=== PATIENT | male | born 1960 | race Caucasian/White ===

== ENCOUNTER 2019-03-02 06:00 | Outpatient (RCR) | payer MEDICARE, SELFPAY | END 2019-04-01 00:01 | LOC: APT 06:00 | PROVIDERS: Family Provider Nurse Practitioner; Visit Provider Nurse Practitioner | DX: J44.9 Chronic obstructive pulmonary disease, unspecified (principal) | CPT/HCPCS: 97110 ×7; J1885; J2001; J2250; J2704; J3010 ==

== ENCOUNTER 2019-04-15 08:15 | Outpatient (CLI) | payer MEDICARE, SELFPAY ==
--- NOTE | 2019-04-15 09:27 | CT_ITS ---
WS: [id number] CT CHEST WITHOUT INTRAVENOUS CONTRAST HISTORY: COPD, worsening shortness of breath. TECHNIQUE: Contiguous 5 mm axial imaging performed on the thorax. Coronal and sagittal reformats are submitted. All CT scans at [facility] use at least one of these dose optimization techniq ues: automated exposure control; mA and/or kV adjustment per patient size (includes targeted exams wh ere dose is matched to clinical indication); or iterative reconstruction. CONTRAST: None DLP: 1183.43 mGycm COMPARISON: 12/07/2018 Lungs and central airway: Lung volumes are slightly decreased. There is mild groundglass attenuation and haziness over both lungs which is in part due to the poor inspiration and crowding of the lung ma rkings. Overall improvement since the prior study of 12/07/2018. No pneumonia or suspicious nodule is i dentified. Benign granuloma RIGHT lower lobe. Compressive atelectasis is subsegmental in the lingula. Pleura: No significant pleural effusion. Pleural effusion described on the prior studies has resolved . Heart and pericardium: Moderate enlargement of the cardiac chambers. No pericardial effusion. Mediastinum and pauly: Small mediastinal and hilar lymph nodes. Some of these lymph nodes contain calc ifications which are benign. No enlarging adenopathy. Vessels: Pulmonary artery size is slightly enlarged and equal to the aorta. Mild atherosclerosis thor acic aorta. Coronary artery calcification is also identified. Chest wall and lower neck: Gynecomastia. Upper abdomen: Hepatic steatosis. Small hiatal hernia. Splenic granulomata. Osseous structures: No destructive process. CT/CT chest wo con [id number] IMPRESSION: 1. Quality of examination is limited by body habitus. 2. Overall significant improvement in pulmonary aeration since 12/07/2018 and re solved pleural effusion. 3. Prior granulomatous disease. 4. Marked cardiomegaly. 5. Benign mediastinal and hilar lymph nodes. 6. Mild coronary artery and aortic calcification.
== END 2019-04-15 08:16 | disposition home or self-care (01) ==
PROVIDERS: Family Provider Nurse Practitioner; PCP Nurse Practitioner; Visit Provider Internal Medicine Critical Care Medicine
DX: J44.9 Chronic obstructive pulmonary disease, unspecified (principal); I51.7 Cardiomegaly; I25.10 Atherosclerotic heart disease of native coronary artery without angina pectoris; I70.0 Atherosclerosis of aorta
CPT/HCPCS: 71250

== ENCOUNTER → 2019-04-16 09:13 | Outpatient (BNVA) | payer MEDICARE, SELFPAY | PROVIDERS: Family Provider Nurse Practitioner; PCP Nurse Practitioner; Visit Provider Internal Medicine Cardiovascular Disease | DX: I11.0 Hypertensive heart disease with heart failure (principal); I50.32 Chronic diastolic (congestive) heart failure | CPT/HCPCS: 80048; 83880 ==

== ENCOUNTER → 2019-04-30 08:20 | Outpatient (BNVA) | payer MEDICARE, SELFPAY | PROVIDERS: Family Provider Nurse Practitioner; PCP Nurse Practitioner; Visit Provider Internal Medicine Cardiovascular Disease | DX: R60.9 Edema, unspecified (principal); I10 Essential (primary) hypertension; I50.32 Chronic diastolic (congestive) heart failure | CPT/HCPCS: 80048; 83880 ==

== ENCOUNTER → 2019-05-19 10:15 | Outpatient (BNVA) | payer MEDICARE, SELFPAY | PROVIDERS: Family Provider Nurse Practitioner; PCP Nurse Practitioner; Visit Provider Internal Medicine Cardiovascular Disease | DX: I10 Essential (primary) hypertension (principal); I48.20 Chronic atrial fibrillation, unspecified; I50.33 Acute on chronic diastolic (congestive) heart failure | CPT/HCPCS: 80053; 83880; 84443 ==

== ENCOUNTER 2019-05-21 10:54 | Emergency (ER) | payer MEDICARE, SELFPAY ==
[2019-05-21 10:57] VITALS: BP 168/69; PULSE 75; RESP 20; TEMP 36.6; O2SAT 97; BMI 56.5
--- NOTE | 2019-05-21 13:20 | ED_ITS ---
Entered by Ct Diaz, acting as scribe for David Corley DO May 21, 2019 10:54 HPI - Recheck/Abnormal Lab/Rx General: Chief Complaint: Recheck/Abnormal Lab/Rx Stated Complaint: DR GRIFFIN SENT OVER Time Seen by Provider: 05/21/19 13:20 History of Present Illness: HPI narrative: 58 yo male present with abnormal las referred by his PCP. His renal function is now patient had been tested and was elevated above 4. He is on multiple medications. Including Lasix 80 twice daily lisinopril 40 p.o. daily is also on potassium 40 mEq twice daily Review of Systems Const: Denies: fever, chills, body aches, change in appetite, fatigue or malaise ENMT: Denies: throat pain, ear pain, nasal discharge or nasal congestion Card: Denies: chest pain, edema, shortness of breath on exertion or shortness of breath when lying down Resp: Denies: shortness of breath, productive cough or non-productive cough GI: Denies: abdominal pain, nausea, vomiting, vomiting blood, coffee grounds in vomit, diarrhea, constipation, bloating, blood in stool or black tarry stool : Denies: flank pain, painful urination, urinary frequency or urinary urgency Skin/Breast: Denies: rash or itching PFSH ED PFSH: Social History Smoking and tobacco status: current every day smoker Quit status (tobacco): has quit using tobacco Year quit tobacco: 2019 - 2PPD x 45 Years Alcohol intake: former Year of sobriety/quit date alcohol: 1991 Household members: spouse Marital status: Current occupational status: disabled History of recent travel: No Current gender identity: Male Physical Exam Const: COMMON NORMALS: no apparent distress GENERAL APPEARANCE: cooperative and comfortable ORIENTATION/CONSCIOUSNESS: Yes awake, Yes oriented to person, Yes oriented to place and Yes oriented to time HENMT: COMMON NORMALS: normocephalic, head/scalp atraumatic, hearing grossly normal bilaterally, external ears normal, EAC's normal, TM's normal bilaterally, nasal mucous membranes and turbinates normal, moist oral mucous membranes and oropharynx normal HEAD & SCALP: normocephalic and atraumatic NOSE: nasal mucous membranes and turbinates normal EXTERNAL EAR: Yes external ears normal EXTERNAL AUDITORY CANAL: EAC's normal TYMPANIC MEMBRANE: TM's normal bilaterally Eye: COMMON NORMALS: PERRL, EOMs intact bilaterally, conjunctivae normal and no scleral icterus CONJUNCTIVA: Yes conjunctivae normal PUPIL: Yes PERRL Neck/C-Spine: COMMON NORMALS: full ROM, no lymphadenopathy, supple and no JVD Lymph: LYMPHATIC: no lymphadenopathy noted and no lymphedema noted Resp: COMMON NORMALS: normal respiratory effort, no retractions, no use of accessory muscles and clear to auscultation bilaterally AUSCULTATION: clear to auscultation bilaterally Cardio: COMMON NORMALS: no JVD, regular rate, regular rhythm and no murmurs RATE: regular rate RHYTHM: regular rhythm GI: COMMON NORMALS: soft to palpation and no hepatosplenomegaly AUSCULTATION: Yes normoactive bowel sounds PALPATION: Yes soft, No tender, No guarding and Yes no hepatosplenomegaly Extremity: COMMON NORMALS: normal to inspection, normal capillary refill, no clubbing, cyanosis or edema, no calf tenderness and no pedal edema Neuro: SENSORIUM/ORIENTATION: Yes oriented to person, Yes oriented to place and Yes oriented to time Skin: COMMON NORMALS: no rashes or lesions noted GENERAL SKIN EXAM: no rashes or lesions noted Course ED course: Creatinine has improved already some. The nurse practitioner had him stop the metaxalone he had recently started. The potassium is a little bit elevated. We will have him cut his potassium supplement back from 40 twice daily to 20 twice daily continue his other medications seem to short-term follow-up in a couple days to recheck he may need to decrease his lisinopril or Lasix. Prior to adding the metaxalone his creatinine been good. If he has worsening problems recheck 6. We will also have him hold his Lasix and cut his lisinopril down to 20 mg daily until he rechecks Vital Signs: Vital signs: Vital Signs Temperature 97.8 F 05/21/19 10:57 Pulse Rate 93 05/21/19 16:07 Respiratory Rate 17 05/21/19 16:07 Blood Pressure 145/76 05/21/19 16:07 Pulse Oximetry 95 05/21/19 16:07 MDM - Recheck/Abnormal Lab/Rx Lab Data: Labs: Lab Results 02/05/21/19 05/21/19 Range/Units 12:40 14:05 14:05 WBC 9.2 (4.0-10.0) 10^3/ uL RBC 3.92 L (4.1-5.3) 10^6/u L Hgb 11.5 L (11.7-16.6) g/dL Hct 37.0 L (42.0-52.0) % MCV 94.4 H (80-94) fL MCH 29.3 (28.0-34.0) pg MCHC 31.1 (30.0-36.0) g/dL RDW 14.6 (12.1-15.1) % Plt Count 230 (130-400) 10^3/c mm MPV 9.9 (7.4-10.4) fL Neut % (Auto) 51.9 % Lymph % (Auto) 32.4 % [place] % (Auto) 10.7 % Eos % (Auto) 3.2 % Baso % (Auto) 0.4 % Neut # (Auto) 4.8 (1.8-7.7) 10^3/u L Lymph # (Auto) 3.0 (0.8-4.8) 10^3/u L [place] # (Auto) 1.0 H (0.2-0.9) 10^3/u L Eos # (Auto) 0.3 (0.0-0.8) 10^3/u L Baso # (Auto) 0.0 (0.0-0.1) 10^3/u L Nucleated RBC % (a uto) 0 % Nucleated RBCs # 0.0 /100WBC Specimen Type Sample Site ABG pH (7.35-7.45) ABG pCO2 (35-45) mmHg ABG pO2 (80.0-100.0) mmH g ABG HCO3 (22-26) mmol/L ABG O2 Saturation ABG Base Excess (-2.0-2.0) mmol/ L Avila Test A-a O2 Gradient (5-10) mmHg Hematocrit (42-52) % Hgb O2 Saturation (95-100) % Carboxyhemoglobin (0.4-20.1) %THgb Methemoglobin (0.4-1.5) % Total Hemoglobin (14-18) g/dL Ionized Calcium (1.1-1.4) mmol/L O2 Delivery Device O2 Liters/Min % FiO2 % Reroller Hand ID Sodium 140 (136-145) mmol/L Potassium 4.8 (3.5-5.1) mmol/L Chloride 108 H (98-107) mmol/L Carbon Dioxide 20 L (22-29) mmol/L Anion Gap 16.8 (5-19) BUN 67 H (6-20) mg/dL Creatinine 3.2 H (0.7-1.2) mg/dL GFR Calculation 20.1 L (90-130) mL/min Glucose 102 (65-115) mg/dL Calcium 8.9 (8.5-10.5) mg/dL Total Bilirubin 0.2 (0.15-1.2) mg/dL AST 14 (0-40) U/L ALT 11 (0-41) U/L Alkaline Phosphata se 62 (40-130) IU/L Total Protein 7.8 (6.6-8.7) g/dL Albumin 3.9 (3.5-5.2) g/dL Globulin 3.9 (1.3-4.6) g/dL Urine Color Yellow (Yellow) Urine Appearance Clear (CLEAR) Urine pH 5.0 (5-7) Ur Specific Gravit y 1.010 (1.005-1.030) Urine Protein Trace (Negative) Urine Glucose (UA) Norm (Normal) Urine Ketones Negative (Negative) Urine Blood Neg (Negative) Urine Nitrate Negative (Negative) Urine Bilirubin Neg (NEGATIVE) Urine Urobilinogen Norm (Negative) mg/dL Ur Leukocyte Cristy ase Negative (Negative) Urine RBC None (0-2) /hpf Urine WBC Rare (0-5) /hpf Ur Squamous Epith Cells Rare (0-5) Urine Bacteria None (NONE) 05/21/19 Range/Units 14:24 WBC (4.0-10.0) 10^3/ uL RBC (4.1-5.3) 10^6/u L Hgb (11.7-16.6) g/dL Hct (42.0-52.0) % MCV (80-94) fL MCH (28.0-34.0) pg MCHC (30.0-36.0) g/dL RDW (12.1-15.1) % Plt Count (130-400) 10^3/c mm MPV (7.4-10.4) fL Neut % (Auto) % Lymph % (Auto) % [place] % (Auto) % Eos % (Auto) % Baso % (Auto) % Neut # (Auto) (1.8-7.7) 10^3/u L Lymph # (Auto) (0.8-4.8) 10^3/u L [place] # (Auto) (0.2-0.9) 10^3/u L Eos # (Auto) (0.0-0.8) 10^3/u L Baso # (Auto) (0.0-0.1) 10^3/u L Nucleated RBC % (a uto) % Nucleated RBCs # /100WBC Specimen Type Arterial Sample Site Radial, right ABG pH 7.29 L (7.35-7.45) ABG pCO2 42.9 (35-45) mmHg ABG pO2 85.4 (80.0-100.0) mmH g ABG HCO3 20.5 L (22-26) mmol/L ABG O2 Saturation 96.2 ABG Base Excess -6.0 L (-2.0-2.0) mmol/ L Avila Test Pos A-a O2 Gradient 145.9 H (5-10) mmHg Hematocrit 40.4 L (42-52) % Hgb O2 Saturation 93.5 L (95-100) % Carboxyhemoglobin 2.0 (0.4-20.1) %THgb Methemoglobin 0.7 (0.4-1.5) % Total Hemoglobin 13.2 L (14-18) g/dL Ionized Calcium 1.2 (1.1-1.4) mmol/L O2 Delivery Device Nc O2 Liters/Min 5.0 % FiO2 40.0 % Reroller Hand ID amh Sodium 144.0 H (136-145) mmol/L Potassium 4.6 (3.5-5.1) mmol/L Chloride (98-107) mmol/L Carbon Dioxide (22-29) mmol/L Anion Gap (5-19) BUN (6-20) mg/dL Creatinine (0.7-1.2) mg/dL GFR Calculation (90-130) mL/min Glucose 108.0 (65-115) mg/dL Calcium (8.5-10.5) mg/dL Total Bilirubin (0.15-1.2) mg/dL AST (0-40) U/L ALT (0-41) U/L Alkaline Phosphata se (40-130) IU/L Total Protein (6.6-8.7) g/dL Albumin (3.5-5.2) g/dL Globulin (1.3-4.6) g/dL Urine Color (Yellow) Urine Appearance (CLEAR) Urine pH (5-7) Ur Specific Gravit y (1.005-1.030) Urine Protein (Negative) Urine Glucose (UA) (Normal) Urine Ketones (Negative) Urine Blood (Negative) Urine Nitrate (Negative) Urine Bilirubin (NEGATIVE) Urine Urobilinogen (Negative) mg/dL Ur Leukocyte Cristy ase (Negative) Urine RBC (0-2) /hpf Urine WBC (0-5) /hpf Ur Squamous Epith Cells (0-5) Urine Bacteria (NONE) Discharge Plan Discharge Patient Disposition: Home, Self-Care Clinical Impression: PETE (acute kidney injury) Condition: Stable Prescriptions: Changed potassium chloride 20 mEq tablet extended release 20 meq PO BID Qty: 0 RF: 0 Discontinued metolazone 5 mg tablet 5 mg PO DAILY RF: 0 No Action Xarelto 20 mg tablet 20 mg PO DAILY RF: 0 colesevelam [WelChol] 625 mg tablet 1,875 mg PO BID RF: 0 pramipexole 0.5 mg tablet 0.5 mg PO TID RF: 0 Lantus Solostar U-100 Insulin 100 unit/mL (3 mL) insulin pen 50 unit SUBCUT BID RF: 0 Victoza 2-Leonides 0.6 mg/0.1 mL (18 mg/3 mL) pen injector 1.8 mg SUBCUT Q24H RF: 0 Zyrtec 10 mg capsule 10 mg PO DAILY RF: 0 buspirone 15 mg tablet 15 mg PO BID RF: 0 ipratropium-albuterol 0.5 mg-3 mg(2.5 mg base)/3 mL solution for nebulization 3 ml INHALATION QID PRN (Reason: unknown) RF: 0 amlodipine 5 mg tablet 5 mg PO DAILY RF: 0 amiodarone 200 mg tablet 200 mg PO DAILY RF: 0 famotidine [Pepcid] 40 mg tablet 40 mg PO DAILY RF: 0 fenofibrate nanocrystallized 145 mg tablet 145 mg PO DAILY RF: 0 furosemide [Lasix] 40 mg tablet 80 mg PO BID RF: 0 montelukast [Singulair] 10 mg tablet 10 mg PO DAILY RF: 0 paroxetine HCl [Paxil] 40 mg tablet 40 mg PO DAILY RF: 0 rosuvastatin 20 mg tablet 20 mg PO DAILY RF: 0 (DME) pen needle, diabetic [TechLITE Pen Needle] 31 gauge x 5/16 needle See Rx Instructions .ROUTE .MEDSUPPLY Qty: 100 RF: 5 levothyroxine 50 mcg capsule 50 mcg PO DAILY Qty: 30 RF: 11 metformin 1,000 mg tablet 1,000 mg PO BID RF: 0 hydralazine 50 mg Tablet 50 mg PO TID RF: 0 lisinopril 40 mg Tablet 40 mg PO DAILY RF: 0 Durezol 0.05 % drops 1 drp ophthalmic (eye) DAILY RF: 0 Prolensa 0.07 % drops 1 drp ophthalmic (eye) DAILY RF: 0 Discharge Orders: Discharge Order (Routine); Ordered 05/21/19 Ordered By: David Corley Referrals: Jeremiah Griffin, [employer]INE OPERATOR-C [Primary Care Provider] - Discharge Diet: Usual diet Discharge Activity: Use walker/crutches as instructed Activity Restrictions/Additional Instructions: Recheck a BMP in 2 days and your doctor's office. Discharge Date/Time: 05/21/19 16:07 Coding Level of Care Code ED Shear Scrapman for Chg Fwd Exam Comprehensive The documentation recorded by the Joe franz Bridget Annette, accurately reflects the service I personally performed and the decisions made by Barney thorpe Curtis L, DO May 21, 2019 10:54
[2019-05-21 13:41] VITALS: BP 108/74; PULSE 74; RESP 18; O2SAT 95
[2019-05-21 14:14] LABS: Basophils % 0.4 %; Eosinophils # 0.3 10^3/uL (0.0-0.8); Eosinophils % 3.2 %; Hemoglobin 11.5 g/dL (11.7-16.6); Lymphocytes % 32.4 %; Mean Corpuscular HGB Conc 31.1 g/dL (30.0-36.0); Mean Corpuscular Hemoglobin 29.3 pg (28.0-34.0); Mean Corpuscular Volume 94.4 fL (80-94); Mean Platelet Volume 9.9 fL (7.4-10.4); Monocytes % 10.7 %; Neutrophils # 4.8 10^3/uL (1.8-7.7); Neutrophils % 51.9 %; Nucleated Red Blood Cells % 0 %; Platelet Count 230 10^3/cmm (130-400); Red Blood Count 3.92 10^6/uL (4.1-5.3); Red Cell Distribution Width 14.6 % (12.1-15.1); White Blood Count 9.2 10^3/uL (4.0-10.0)
[2019-05-21 14:30] LABS: Alanine Aminotransferase 11 U/L (0-41); Albumin Level 3.9 g/dL (3.5-5.2); Alkaline Phosphatase 62 IU/L (40-130); Anion Gap 16.8 (5-19); Aspartate Amino Transferase 14 U/L (0-40); Blood Urea Nitrogen 67 mg/dL (6-20); Calcium 8.9 mg/dL (8.5-10.5); Carbon Dioxide 20 mmol/L (22-29); Chloride 108 mmol/L (98-107); Globulin 3.9 g/dL (1.3-4.6); Glomerular Filtration Rate 20.1 mL/min (90-130); Glucose 102 mg/dL (65-115); Potassium 4.8 mmol/L (3.5-5.1); Sodium 140 mmol/L (136-145); Total Bilirubin 0.2 mg/dL (0.15-1.2); Total Protein 7.8 g/dL (6.6-8.7)
[2019-05-21] MEDS: azithromycin 500 MG in sodium chloride 0.9% 250 ML 250 MG IV (14:31)
[2019-05-21 14:35] LABS: Add Urine Microscopic? YES; Bilirubin Urine Neg (NEGATIVE); Blood Urine Neg (Negative); Glucose Urine UA Norm (Normal); Ketones Urine Negative (Negative); Leukocyte Esterase Urine Negative (Negative); Nitrate Urine Negative (Negative); Protein Urine Trace (Negative); Urine Appearance Clear (CLEAR); Urine Color Yellow (Yellow); Urobilinogen Urine Norm (Negative)
[2019-05-21 14:35] LABS: ABG PCO2 42.9 mmHg (35-45); ABG PH Result 7.29 (7.35-7.45); Alveolar-Arterial Oxygen Gradi 145.9 mmHg (5-10); Arterial Blood Gas Hematocrit 40.4 % (42-52); Blood Gas Allen Test Pos; Blood Gas Operator Identificat amh; Blood Gas Sample Site Radial, right; Blood Gas Sample Type Arterial; HCO3 ABG 20.5 mmol/L (22-26); HGB O2 Sat 93.5 % (95-100); Ionized Calcium Level - ABG 1.2 mmol/L (1.1-1.4); Methemoglobin 0.7 % (0.4-1.5); Oxygen Device NC; Oxygen Saturation ABG 96.2; PO2 ABG 85.4 mmHg (80.0-100.0); Potassium Level - ABG 4.6 mmol/L (3.5-5.0); Total Hemoglobin 13.2 g/dL (14-18)
[2019-05-21 14:36] LABS: Add Urine Culture? No; Squamous Epithelial Cell Urine RARE (0-5); WBC Urine RARE /hpf (0-5)
--- NOTE | 2019-05-21 14:57 | PC.NURSE ---
ordered med on wrong pt. stopped azithromycin aga
[2019-05-21] MEDS: sodium chloride 0.9% 1,000 ML 999 ML IV (15:00)
[2019-05-21 16:07] VITALS: BP 145/76; PULSE 93; RESP 17; O2SAT 95
== END 2019-05-21 16:07 | disposition home or self-care (01) ==
PROVIDERS: Emergency Provider Family Medicine; Family Provider Nurse Practitioner; PCP Nurse Practitioner
DX: N17.9 Acute kidney failure, unspecified (principal); F17.200 Nicotine dependence, unspecified, uncomplicated
CPT/HCPCS: 36415; 36600; 80051; 80053; 81001; 82810; 83986; 85025; 96365; 99283; A9270; J0456; J7030; J7050

== ENCOUNTER → 2019-05-28 08:26 | Outpatient (BNVA) | payer MEDICARE, SELFPAY | PROVIDERS: Family Provider Nurse Practitioner; PCP Nurse Practitioner; Visit Provider Nurse Practitioner | DX: E11.9 Type 2 diabetes mellitus without complications (principal); E78.5 Hyperlipidemia, unspecified | CPT/HCPCS: 80048; 80061; 83036 ==

== ENCOUNTER → 2019-08-21 09:00 | Outpatient (BNVA) | payer MEDICARE, SELFPAY | PROVIDERS: Family Provider Nurse Practitioner; PCP Nurse Practitioner; Visit Provider Nurse Practitioner | DX: E11.65 Type 2 diabetes mellitus with hyperglycemia (principal); Z79.4 Long term (current) use of insulin; I50.32 Chronic diastolic (congestive) heart failure; Z79.899 Other long term (current) drug therapy | CPT/HCPCS: 80053; 80061; 81003; 83036; 83880; 84443 ==

== ENCOUNTER → 2019-11-17 11:00 | Outpatient (BNVA) | payer MEDICARE, SELFPAY | PROVIDERS: Family Provider Nurse Practitioner; PCP Nurse Practitioner; Visit Provider Internal Medicine Cardiovascular Disease | DX: I11.0 Hypertensive heart disease with heart failure (principal); I48.20 Chronic atrial fibrillation, unspecified; I50.33 Acute on chronic diastolic (congestive) heart failure; R06.02 Shortness of breath; E78.2 Mixed hyperlipidemia; E66.2 Morbid (severe) obesity with alveolar hypoventilation; Z79.899 Other long term (current) drug therapy | CPT/HCPCS: 80048; 80061; 83036; 83880; 84443 ==

== ENCOUNTER → 2020-02-09 16:39 | Outpatient (BNVA) | payer MEDICARE, SELFPAY | PROVIDERS: Family Provider Nurse Practitioner; PCP Nurse Practitioner; Visit Provider Nurse Practitioner Family | DX: F41.9 Anxiety disorder, unspecified (principal); J30.1 Allergic rhinitis due to pollen; I10 Essential (primary) hypertension; E11.65 Type 2 diabetes mellitus with hyperglycemia; Z79.4 Long term (current) use of insulin; E78.2 Mixed hyperlipidemia; K21.9 Gastro-esophageal reflux disease without esophagitis; Z87.891 Personal history of nicotine dependence | CPT/HCPCS: 80053; 80061; 83036; 84443; 85025 ==

== ENCOUNTER → 2020-04-29 08:57 | Outpatient (BNVA) | payer MEDICARE, SELFPAY | PROVIDERS: Family Provider Nurse Practitioner; PCP Nurse Practitioner; Visit Provider Nurse Practitioner | DX: E11.65 Type 2 diabetes mellitus with hyperglycemia (principal); I10 Essential (primary) hypertension; E78.2 Mixed hyperlipidemia | CPT/HCPCS: 80053; 80061; 83036 ==

== ENCOUNTER → 2020-07-07 10:55 | Outpatient (BNVA) | payer MEDICARE, SELFPAY | PROVIDERS: Family Provider Nurse Practitioner; PCP Nurse Practitioner; Visit Provider Nurse Practitioner | DX: E11.65 Type 2 diabetes mellitus with hyperglycemia (principal); Z79.4 Long term (current) use of insulin; F41.9 Anxiety disorder, unspecified; J30.1 Allergic rhinitis due to pollen; K21.9 Gastro-esophageal reflux disease without esophagitis; I10 Essential (primary) hypertension; E78.2 Mixed hyperlipidemia | CPT/HCPCS: 80053; 80061; 81000; 83036; 84443 ==

== ENCOUNTER → 2020-07-22 16:12 | Outpatient (BNVA) | payer MEDICARE, SELFPAY | PROVIDERS: Family Provider Nurse Practitioner; PCP Nurse Practitioner; Visit Provider Nurse Practitioner | DX: L98.9 Disorder of the skin and subcutaneous tissue, unspecified (principal) | CPT/HCPCS: 88305 ==

== ENCOUNTER → 2020-10-01 09:54 | Outpatient (BNVA) | payer MEDICARE, SELFPAY | PROVIDERS: Family Provider Nurse Practitioner; PCP Nurse Practitioner; Visit Provider Nurse Practitioner | DX: E11.65 Type 2 diabetes mellitus with hyperglycemia (principal); Z79.4 Long term (current) use of insulin | CPT/HCPCS: 80053; 80061; 81003; 82043; 83036 ==

== ENCOUNTER 2020-10-28 07:53 | Outpatient (CLI) | payer MEDICARE, SELFPAY ==
--- NOTE | 2020-10-28 08:06 | CT_ITS ---
WS: [id number] LDCT LUNG CANCER SCREENING TECHNIQUE: Noncontrast CT of the chest with coronal and sagittal reformatted images. CLINICAL INFORMATION: Nicotine Dependence COMPARISON: None. DLP: 58.15 mGy.cm DIvol: 1.[address] scans at [facility] use at least one of these dose optimization techniques: automat ed exposure control; mA and/or kV adjustment per patient size (includes targeted exams where dose is matched to clinical indication); or iterative reconstruction. FINDINGS: Limited examination quality due to body habitus. Cardiomegaly. Aortic calcification. Coronary calcification. Calcified hilar lymph nodes. Bibasilar at electasis. Calcified granulomas right lower lobe. No suspicious pulmonary parenchymal opacities consi dering exam limitations. CT/CT lung screening 64366 IMPRESSION: LUNG-RADS: 1-Negative FOLLOW UP: 12 Month: Continue annual screening with LDCT
== END 2020-10-28 07:54 | disposition home or self-care (01) ==
PROVIDERS: PCP Nurse Practitioner; Visit Provider Internal Medicine Critical Care Medicine
DX: Z12.2 Encounter for screening for malignant neoplasm of respiratory organs (principal); F17.210 Nicotine dependence, cigarettes, uncomplicated; I70.0 Atherosclerosis of aorta; J98.11 Atelectasis
CPT/HCPCS: 71271

== ENCOUNTER 2020-11-25 13:37 | Outpatient (CLI) | payer MEDICARE, SELFPAY ==
--- NOTE | 2020-11-25 13:46 | XR_ITS ---
WS: [id number] Exam: XR chest 2V* 27005 Date/Time of Exam: 11/25/2020 1:46 PM Reason For Exam: I50.32 - Chronic diastolic (congestive) heart failure Comparison 12/29/2018. Mild infiltrate in the right lower lung zone. The heart is enlarged with slightly increased pulmonary vascularity. No pleural effusion seen. No pneumothorax. The mediastinum is not widened. Regional bon y elements are intact. XR/XR chest 2V* 30885 IMPRESSION: 1. Mild right basal infiltrate. 2. Cardiac enlargement with increased pulmonary vascularity. The pattern is unc hanged since the previous study.
[2020-11-25 14:18] LABS: Basophils # 0.1 10^3/uL (0.0-0.1); Basophils % 0.7 %; Eosinophils # 0.4 10^3/uL (0.0-0.8); Eosinophils % 3.6 %; Hemoglobin 11.6 g/dL (11.7-16.6); Lymphocytes # 3.7 10^3/uL (0.8-4.8); Lymphocytes % 32.4 %; Mean Corpuscular HGB Conc 30.5 g/dL (30.0-36.0); Mean Corpuscular Hemoglobin 29.9 pg (28.0-34.0); Mean Corpuscular Volume 97.9 fl (80-94); Mean Platelet Volume 9.8 fL (7.4-10.4); Monocytes % 8.6 %; Neutrophils # 6.07 10^3/uL (1.8-7.7); Neutrophils % 54.1 %; Nucleated Red Blood Cells % 0 %; Platelet Count 262 10^3/cmm (130-400); Red Blood Count 3.88 10^6/uL (4.1-5.3); Red Cell Distribution Width 14.2 % (12.1-15.1); White Blood Count 11.3 10^3/uL (4.0-10.0)
[2020-11-25 15:07] LABS: Alanine Aminotransferase 21 U/L (0-41); Albumin Level 3.6 g/dL (3.5-5.2); Alkaline Phosphatase 53 IU/L (40-130); Anion Gap 12.8 (5-19); Aspartate Amino Transferase 27 U/L (0-40); Blood Urea Nitrogen 22 mg/dL (8-23); Calcium 8.8 mg/dL (8.5-10.5); Carbon Dioxide 26 mmol/L (22-29); Chloride 106 mmol/L (98-107); Globulin 3.1 g/dL (1.3-4.6); Glomerular Filtration Rate 56.3 mL/min (90-130); Glucose 141 mg/dL (65-115); NT Pro B Type Natriuretic Pept 464 pg/mL (0-125); Osmolality Calculated 296 mOsm/kg (285-295); Potassium 4.8 mmol/L (3.5-5.1); Sodium 140 mmol/L (136-145); Total Bilirubin 0.2 mg/dL (0.15-1.2); Total Protein 6.7 g/dL (6.6-8.7)
== END 2020-11-25 13:38 | disposition home or self-care (01) ==
PROVIDERS: PCP Nurse Practitioner; Visit Provider Nurse Practitioner
DX: I50.32 Chronic diastolic (congestive) heart failure (principal); R91.8 Other nonspecific abnormal finding of lung field; I51.7 Cardiomegaly
CPT/HCPCS: 36415; 71046; 80053; 83880; 85025

== ENCOUNTER → 2020-12-20 08:40 | Outpatient (BNVA) | payer MEDICARE, SELFPAY | PROVIDERS: PCP Nurse Practitioner; Visit Provider Nurse Practitioner | DX: E11.65 Type 2 diabetes mellitus with hyperglycemia (principal); Z79.4 Long term (current) use of insulin; I10 Essential (primary) hypertension | CPT/HCPCS: 80053; 80061; 83036 ==

== ENCOUNTER → 2021-02-14 09:14 | Outpatient (BNVA) | payer MEDICARE, SELFPAY | PROVIDERS: PCP Nurse Practitioner; Visit Provider Surgery | DX: Z01.812 Encounter for preprocedural laboratory examination (principal); Z11.52 Encounter for screening for COVID-19; Z20.822 Contact with and (suspected) exposure to COVID-19 | CPT/HCPCS: 87635 ==

== ENCOUNTER 2021-02-18 05:42 | Day surgery (SDC) | payer MEDICARE, SELFPAY ==
[2021-02-16 15:33] VITALS: BMI 57.7
[2021-02-18 06:15] VITALS: BP 182/111; PULSE 83; RESP 20; TEMP 36.7; O2SAT 94
--- NOTE | 2021-02-18 06:44 | ANES.PREANE2 ---
Pre-Anesthetic Assessment Pre-Anesthetic Assessment: Height/Weight: Height 5 ft 11 in Weight 187.787 kg Temp Pulse Resp BP Pulse Ox 98.1 F 83 20 H 182/111 94 02/18/21 06:15 02/18/21 06:15 02/18/21 06:15 02/18/21 06:15 02/18/21 06:15 Preop Diagnosis: diagnostic Proposed Procedure: Operation Date: 02/18/21 07:00 Proposed Procedures p EGD/Colon 60531 R10.13(Not Applicable) - Sarath Beltre MD s Colonoscopy 08737 Z12.11(Not Applicable) - Sarath Beltre MD Was Beta Jorge taken within 24 hours: N/A Was Clonidine taken within 24 hours: N/A Last intake: Intake Last Liquid Date 02/17/21 Last Liquid Time 21:00 Last Solid Date 02/16/21 Last Solid Time 21:00 Social: Social History: Tobacco Exam: Pre-Anes Outpt Exam: alert, oriented x 3, clear to auscultation bilaterally and regular rate & rhythm Airway: Submandibular: WNL Cervical ROM: WNL MP: 3 Dentition: False History/ROS: No significant history except as noted Pulmonary: Pulmonary: COPD, ALEJANDRO, Sleep apnea and SOB Comments: O2 6L CV/HEM: CV/HEM: Afib and CHF : : None reported Hepatic: Hepatic: None reported GI: GI: None reported Metabolic: Metabolic: DM, Hyperlipidemia and Morbid obesity Musc/skel: Musc/skel: None reported Neuropsych: Neuropsych: Anxiety and Depression Anesthetic Plan: ASA status: 3 Anesthesia: Anesthesia Evaluation and MAC Risk of > 500 ml blood loss (7ml/kg in children): No PFSH Anesthesia PFSH: Medical History (Updated 01/25/21 @ 14:14 by Sarath Beltre MD) Acquired lymphedema Afib Allergic rhinitis due to pollen Anxiety Chronic atrial fibrillation with rapid ventricular response Chronic diastolic (congestive) heart failure Chronic respiratory failure Controlled type 2 diabetes mellitus with hyperglycemia, with long-term current use of insulin Essential (primary) hypertension GERD (gastroesophageal reflux disease) Hyperlipemia Hypothyroidism Hypoxia, sleep related MRSA infection EDGAR (obstructive sleep apnea) Pneumonia, unspecified organism Surgical History (Updated 02/04/21 @ 10:02 by MEL Zuleta) History of colonoscopy History of gangrene Left buttocks requiring surgery May 2014 Family History Father Cancer Mother Heart disease CAD (coronary artery disease) Diabetes Heart attack Stroke Brother Heart attack Clotting disorder Stroke Sister Stroke Denies family history of Dementia Chronic kidney disease (CKD) Suicide Anesthesia complication Bleeding disorder Lung disease Social History Smoking and tobacco status: current every day smoker cigarettes Packs smoked per day: 1 Years cigarettes smoked: 45 Second hand smoke exposure: Yes Smoking risk assessment/counseling performed?: Yes Alcohol intake: former Year of sobriety/quit date alcohol: 1991 Desire information about alcohol rehabilitation?: No Counseling given: No Desire information about substance/drug rehabilitation?: No Counseling given: No Adopted: No Caregiver/support person: No Lives independently: Yes Household members: spouse Housing: House Marital status: service: No Current occupational status: disabled Pets and animals: Yes History of recent travel: No Current gender identity: Male Data Anesthesia Cardiac Studies: No Data to Display
[2021-02-18] MEDS: sodium chloride 0.9% 1,000 ML 30 ML IV (07:00)
--- NOTE | 2021-02-18 07:16 | W.PM.OPSUD ---
Surgery/Procedure H&P Update DATE OF PROCEDURE: February 18, 2021 DATE H&P PERFORMED: 01/25/21 H&P UPDATE INFORMATION: I have reviewed H&P completed within last 30 days, I have examined patient prior to procedure and No changes to prior documentation PREOP DIAGNOSIS: diagnostic PLANNED PROCEDURE: Operation Date: 02/18/21 07:00 Proposed Procedures p EGD/Colon 10963 R10.13(Not Applicable) - Sarath Beltre MD s Colonoscopy 19250 Z12.11(Not Applicable) - Sarath Beltre MD
[2021-02-18 07:45] VITALS: BP 120/65; PULSE 72; RESP 18; TEMP 37.3; O2SAT 95
[2021-02-18 07:57] VITALS: BP 124/69; PULSE 78; RESP 18; O2SAT 95
--- NOTE | 2021-02-18 13:57 | ANE.PACU2 ---
Inpatient post-anesthesia follow up: Airway intact: Yes Vital signs: Temperature 99.1 F Pulse Rate 78 Respiratory Rate 18 Blood Pressure 124/69 Pulse Oximetry 95 Oxygen Delivery Me thod Nasal Cannula Oxygen Flow Rate 7 Fraction of Inspir ed Oxygen Hydration adequate: Yes Nausea and vomiting: No Pain level: 1 Mental status: Baseline
== END 2021-02-18 08:15 | disposition home or self-care (01) ==
PROVIDERS: PCP Nurse Practitioner; Visit Provider Surgery
PROC: 0DJ08ZZ Inspection of Upper Intestinal Tract, Via Natural or Artificial Opening Endoscopic (ICD-10-PCS; CPT 43235; principal; 2021-02-18 07:00)
PROC: 0DJD8ZZ Inspection of Lower Intestinal Tract, Via Natural or Artificial Opening Endoscopic (ICD-10-PCS; CPT 45378; 2021-02-18 07:00)
DX: Z12.11 Encounter for screening for malignant neoplasm of colon (principal); R10.13 Epigastric pain; K57.30 Diverticulosis of large intestine without perforation or abscess without bleeding; B96.81 Helicobacter pylori [H. pylori] as the cause of diseases classified elsewhere; K29.70 Gastritis, unspecified, without bleeding; J44.9 Chronic obstructive pulmonary disease, unspecified; G47.33 Obstructive sleep apnea (adult) (pediatric); Z99.81 Dependence on supplemental oxygen; I48.91 Unspecified atrial fibrillation; E11.9 Type 2 diabetes mellitus without complications; E78.5 Hyperlipidemia, unspecified; E66.01 Morbid (severe) obesity due to excess calories; Z68.43 Body mass index [BMI] 50.0-59.9, adult; F41.9 Anxiety disorder, unspecified; F32.9 Major depressive disorder, single episode, unspecified; I11.0 Hypertensive heart disease with heart failure; I50.32 Chronic diastolic (congestive) heart failure; K21.9 Gastro-esophageal reflux disease without esophagitis; E03.9 Hypothyroidism, unspecified; Z86.14 Personal history of Methicillin resistant Staphylococcus aureus infection; Z82.49 Family history of ischemic heart disease and other diseases of the circulatory system; Z83.3 Family history of diabetes mellitus; Z82.3 Family history of stroke; F17.210 Nicotine dependence, cigarettes, uncomplicated
CPT/HCPCS: 43239; 88305; 96360; G0121; J2704; J7030

== ENCOUNTER → 2021-03-21 10:35 | Outpatient (BNVA) | payer MEDICARE, SELFPAY | PROVIDERS: PCP Nurse Practitioner; Visit Provider Nurse Practitioner | DX: F41.9 Anxiety disorder, unspecified (principal); I10 Essential (primary) hypertension; E11.65 Type 2 diabetes mellitus with hyperglycemia; Z79.4 Long term (current) use of insulin; E03.9 Hypothyroidism, unspecified; J30.1 Allergic rhinitis due to pollen; E78.2 Mixed hyperlipidemia; Z23 Encounter for immunization | CPT/HCPCS: 80053; 81000; 83036; 84443 ==

== ENCOUNTER → 2021-07-07 17:00 | Outpatient (BNVA) | payer OTHER, SELFPAY | PROVIDERS: PCP Nurse Practitioner; Visit Provider Nurse Practitioner | DX: F41.9 Anxiety disorder, unspecified (principal); J30.1 Allergic rhinitis due to pollen; I10 Essential (primary) hypertension; E11.65 Type 2 diabetes mellitus with hyperglycemia; Z79.4 Long term (current) use of insulin; E03.9 Hypothyroidism, unspecified; E78.2 Mixed hyperlipidemia | CPT/HCPCS: 80053; 80061; 83036; 84443 ==

== ENCOUNTER → 2021-11-01 14:18 | Outpatient (BNVA) | payer OTHER, SELFPAY | PROVIDERS: PCP Nurse Practitioner; Visit Provider Nurse Practitioner | DX: E11.65 Type 2 diabetes mellitus with hyperglycemia (principal); E03.9 Hypothyroidism, unspecified; I10 Essential (primary) hypertension; J30.1 Allergic rhinitis due to pollen; I50.32 Chronic diastolic (congestive) heart failure; E78.2 Mixed hyperlipidemia; J96.11 Chronic respiratory failure with hypoxia; F41.9 Anxiety disorder, unspecified; J96.12 Chronic respiratory failure with hypercapnia; Z79.4 Long term (current) use of insulin | CPT/HCPCS: 80053; 80061; 83036; 84443 ==

== ENCOUNTER → 2021-12-14 11:11 | Outpatient (BNVA) | payer MEDICARE, SELFPAY | PROVIDERS: PCP Nurse Practitioner; Visit Provider Internal Medicine Cardiovascular Disease | DX: I11.0 Hypertensive heart disease with heart failure (principal); I50.32 Chronic diastolic (congestive) heart failure; F17.210 Nicotine dependence, cigarettes, uncomplicated; E11.65 Type 2 diabetes mellitus with hyperglycemia; Z79.4 Long term (current) use of insulin; E03.9 Hypothyroidism, unspecified; E66.2 Morbid (severe) obesity with alveolar hypoventilation; Z68.43 Body mass index [BMI] 50.0-59.9, adult; F41.9 Anxiety disorder, unspecified; I48.20 Chronic atrial fibrillation, unspecified; Z79.01 Long term (current) use of anticoagulants; J96.12 Chronic respiratory failure with hypercapnia; J96.11 Chronic respiratory failure with hypoxia | CPT/HCPCS: 99213; 99214 ==

== ENCOUNTER → 2022-01-04 11:08 | Outpatient (BNVA) | payer MEDICARE, SELFPAY | PROVIDERS: PCP Nurse Practitioner; Visit Provider Internal Medicine Critical Care Medicine | DX: J98.4 Other disorders of lung (principal); F17.210 Nicotine dependence, cigarettes, uncomplicated; E66.2 Morbid (severe) obesity with alveolar hypoventilation; J98.59 Other diseases of mediastinum, not elsewhere classified; Z68.43 Body mass index [BMI] 50.0-59.9, adult | CPT/HCPCS: 99214 ==

== ENCOUNTER → 2022-02-17 09:05 | Outpatient (BNVA) | payer MEDICARE, SELFPAY | PROVIDERS: PCP Nurse Practitioner; Visit Provider Nurse Practitioner | DX: Z23 Encounter for immunization (principal); E11.65 Type 2 diabetes mellitus with hyperglycemia; Z79.4 Long term (current) use of insulin; J96.11 Chronic respiratory failure with hypoxia; F41.9 Anxiety disorder, unspecified; I50.32 Chronic diastolic (congestive) heart failure; J96.12 Chronic respiratory failure with hypercapnia; J30.1 Allergic rhinitis due to pollen; E78.2 Mixed hyperlipidemia; I10 Essential (primary) hypertension; E03.9 Hypothyroidism, unspecified | CPT/HCPCS: 80053; 80061; 81000; 82043; 83036; 83880; 84443 ==

== ENCOUNTER 2022-03-02 10:16 | Outpatient (CLI) | payer MEDICARE, SELFPAY ==
--- NOTE | 2022-03-02 10:30 | CT_ITS ---
WS: [id number] LDCT LUNG CANCER SCREENING TECHNIQUE: Noncontrast CT of the chest with coronal and sagittal reformatted images. CLINICAL INFORMATION: Lung cancer screening COMPARISON: CT October 28, 2020 DLP: 89.70 mGy.cm DIvol: Mean CTDIvol: 1.60 (mGy) All CT scans at [facility] use at least one of these dose optimization techniques: automat ed exposure control; mA and/or kV adjustment per patient size (includes targeted exams where dose is matched to clinical indication); or iterative reconstruction. FINDINGS: Images limited due to body habitus. Cardiomegaly. Bilateral dependent atelectasis. Calcified granulomas. Subsegmental atelectasis in the RIGHT middle lobe, lingula, and bilateral lower lobes. Hazy groundglass opacities in the lower lobes bilaterally likely edema or inflammatory. Mild aortic calcification. Coronary calcification. Adrenal glands appear normal. Fatty atrophy of the pancreas. Normal GE junction. Hypertrophic changes thoracic spine. CT/CT lung screening [id number] IMPRESSION: LUNG-RADS: 1-Negative FOLLOW UP: 12 Month: Continue annual screening with LDCT
== END 2022-03-02 10:17 | disposition home or self-care (01) ==
PROVIDERS: PCP Nurse Practitioner; Visit Provider Internal Medicine Critical Care Medicine
DX: Z12.2 Encounter for screening for malignant neoplasm of respiratory organs (principal); F17.210 Nicotine dependence, cigarettes, uncomplicated
CPT/HCPCS: 71271

== ENCOUNTER 2022-04-06 08:55 | Inpatient (IN) | payer MEDICARE, SELFPAY ==
[2022-04-06] VITALS (45 sets, daily range): BP systolic 99–196; BP diastolic 54–105; PULSE 77–98; RESP 16–31; TEMP 36.4–37.6; O2SAT 72–96; BMI 57.9
--- NOTE | 2022-04-06 09:01 | XR_ITS ---
WS: [id number] Portable AP upright chest, 04/06/2022 Clinical Data: dyspnea/cough Comparison: PA and lateral chest, 11/25/2020 Findings: No nodules, masses or effusions are seen. The heart is enlarged. The pulmonary vascularity is not increased. No pneumonia or pneumothorax is seen. There are bilateral patchy basilar opacities which may represent atelectasis. XR/XR chest 1V portable [id number] Impression: 1. Cardiomegaly. 2. Bibasilar patchy opacities most likely atelectasis.
--- NOTE | 2022-04-06 09:24 | ECG_ITS ---
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 Measurements Intervals [place] Rate: 93 P: 0 MN: 0 QRS: 76 QRSD: 114 T: 40 QT: 397 QTc: 494 Interpretive Statements ATRIAL FIBRILLATION INCOMPLETE RIGHT BUNDLE BRANCH BLOCK [90+ ms QRS DURATION, TERMINAL R IN V1/V2, 40+ ms S IN I/aVL/V4/V5/V6] NONSPECIFIC T-WAVE ABNORMALITY Compared to ECG 12/29/2018 20:32:21 Incomplete right bundle-branch block now present T-wave abnormality now present Ventricular premature complex(es) no longer present Aberrant conduction of supraventricular beat(s) no longer present Intraventricular conduction delay no longer present Electronically Signed On 04-06-2022 10:37:03 CONDUCTOR YARD by Douglas Tee M.D. [email or web address]
[2022-04-06 09:25] LABS: ABG PCO2 50.3 mmHg (35-45); ABG PH Result 7.32 (7.35-7.45); Arterial Blood Gas Hematocrit 31.3 % (42-52); Base Excess ABG -0.9 mmol/L (-2.0-2.0); Blood Gas Allen Test Pos; Blood Gas Operator Identificat CAK; Blood Gas Sample Site Radial, right; Blood Gas Sample Type Arterial; Carboxyhemoglobin 2.6 %THgb (0.4-20.1); HCO3 ABG 25.6 mmol/L (22-26); HGB O2 Sat 87.9 % (95-100); Ionized Calcium Level - ABG 1.2 mmol/L (1.1-1.4); Methemoglobin 0.5 % (0.4-1.5); Oxygen Device NRB; Oxygen Saturation ABG 90.8; PO2 ABG 64.3 mmHg (80.0-100.0); Potassium Level - ABG 4.4 mmol/L (3.5-5.0); Total Hemoglobin 10.2 g/dL (14-18)
--- NOTE | 2022-04-06 09:26 | ED_ITS ---
HPI - SOB/Dyspnea General: Chief Complaint: Shortness of Breath/Dyspnea Stated Complaint: low ox Time Seen by Provider: 04/06/22 09:01 Source: patient Mode of arrival: ambulatory Limitations: no limitations History of Present Illness: HPI Narrative: 61-year-old male presents emergency room in acute respiratory distress. He has had increased work of breathing and increased oxygen demand normally he is on 6 L he has not been able to lay down still up to orthopnea over the last couple of days as well as increased swelling. He denies fever sweats or chills or productive cough. His oxygen sats on arrival on mask over the mid to upper 80s. He denies any chest pain. MD elicited complaint: shortness of breath Pertinent past history: congestive heart failure Onset (ago): day(s) Timing: constant Severity: severe Exacerbating factors: lying flat, exertion, movement and coughing Relieving factors: oxygen and upright position Known history of: COPD and congestive heart failure Associated symptoms: Reports chest congestion and orthopnea; Deny abdominal pain, chest pain, cough, diaphoresis, dizziness, extremity pain, fever(s), hemoptysis, lightheadedness, myalgias, nausea, palpitations, paresthesias, polydipsia, polyuria, rash, sense of impending doom, syncope or vomiting Treatment prior to arrival: oxygen Review of Systems Const: Denies: fever(s), chills or diaphoresis ENMT: Denies: throat pain, ear or mastoid pain, nasal discharge or nasal congestion Card: Reports: edema, dyspnea on exertion and orthopnea; Denies: chest pain, palpitations, lightheadedness or syncope Resp: Reports: dyspnea, non-productive cough, wheezing and chest congestion; Denies: hemoptysis GI: Denies: abdominal pain, nausea or vomiting : Denies: flank pain, dysuria, urinary frequency or urinary urgency Musc: Denies: extremity pain Skin/Breast: Denies: rash or pruritus Neuro: Denies: dizziness Endo: Denies: polyuria or polydipsia PFS ED PFSH: Medical History Acquired lymphedema Afib Allergic rhinitis due to pollen Anxiety Chronic atrial fibrillation with rapid ventricular response Chronic diastolic (congestive) heart failure Chronic kidney disease Chronic respiratory failure Diabetes mellitus with hyperglycemia, with long-term current use of insulin Essential (primary) hypertension GERD (gastroesophageal reflux disease) Hyperlipemia Hypothyroidism Hypoxia, sleep related MRSA infection EDGAR (obstructive sleep apnea) Pneumonia, unspecified organism Surgical History H/O esophagogastroduodenoscopy (02/18/21) History of bilateral cataract extraction 2019 and 2020 History of colonoscopy (02/18/21) History of gangrene Left buttocks requiring surgery May 2014 Family History Father Cancer Mother Heart disease CAD (coronary artery disease) Diabetes Heart attack Stroke Brother Heart attack Clotting disorder Stroke Sister Stroke Denies family history of Dementia Chronic kidney disease (CKD) Suicide Anesthesia complication Bleeding disorder Lung disease Social History Smoking and tobacco status: current every day smoker cigarettes Packs smoked per day: 1 Years cigarettes smoked: 50 [ Other cigarette details: Started at age 10] Second hand smoke exposure: Yes Smoking risk assessment/counseling performed?: Yes Alcohol intake: former Year of sobriety/quit date alcohol: 1991 Desire information about alcohol rehabilitation?: No Counseling given: No Desire information about substance/drug rehabilitation?: No Counseling given: No Adopted: No Caregiver/support person: No Lives independently: Yes Household members: spouse Housing: House Marital status: service: No Current occupational status: disabled Pets and animals: Yes History of recent travel: No Current gender identity: Male Course Vital Signs: Vital signs: Vital Signs Temperature 99.7 F H 04/06/22 19:30 Pulse Rate 87 04/06/22 19:48 Respiratory Rate 24 H 04/06/22 19:48 Blood Pressure 108/54 04/06/22 19:30 Pulse Oximetry 91 04/06/22 19:48 Oxygen Delivery Me thod 04/06/22 19:48 Oxygen Flow Rate 15 04/06/22 09:01 Fraction of Inspir ed Oxygen 60 04/06/22 19:48 MDM - SOB/Dyspnea Medical Decision Making Acute hypercapnic respiratory failure exacerbation COPD. And congestive heart failure. He is improved with BiPAP discussed with hospitalist orders written Medical Records I reviewed the patient's medical records. Lab Data I reviewed the patient's lab results. 04/06/22 09:12 04/06/22 09:12 Labs/Radiology: Radiology Impressions Chest X-Ray 04/06/22 09:01 Impression: 1. Cardiomegaly. 2. Bibasilar patchy opacities most likely atelectasis. Laboratory Results WBC 17.3 10^3/uL (4.0-10.0) H 04/06/22 09:12 RBC 3.38 10^6/uL (4.1-5.3) L 04/06/22 09:12 Hgb 9.9 g/dL (11.7-16.6) L 04/06/22 09:12 Hct 32.3 % (42.0-52.0) L 04/06/22 09:12 MCV 95.6 fl (80-94) H 04/06/22 09:12 MCH 29.3 pg (28.0-34.0) 04/06/22 09:12 MCHC 30.7 g/dL (30.0-36.0) 04/06/22 09:12 RDW 15.1 % (12.1-15.1) 04/06/22 09:12 Plt Count 323 10^3/cmm (130-400) 04/06/22 09:12 MPV 10.3 fL (7.4-10.4) 04/06/22 09:12 Neut % (Auto) 82.7 % 04/06/22 09:12 Lymph % (Auto) 7.7 % 04/06/22 09:12 [place]ud[place] % (Auto) 8.8 % 04/06/22 09:12 Eos % (Auto) 0.1 % 04/06/22 09:12 Baso % (Auto) 0.3 % 04/06/22 09:12 Neut # (Auto) 14.28 10^3/uL (1.8-7.7) H 04/06/22 09:12 Lymph # (Auto) 1.3 10^3/uL (0.8-4.8) 04/06/22 09:12 [place] # (Auto) 1.5 10^3/uL (0.2-0.9) H 04/06/22 09:12 Eos # (Auto) 0.0 10^3/uL (0.0-0.8) 04/06/22 09:12 Baso # (Auto) 0.1 10^3/uL (0.0-0.1) 04/06/22 09:12 Nucleated RBC % (auto) 0 % 04/06/22 09:12 Nucleated RBCs # 0.0 /100WBC 04/06/22 09:12 Specimen Type Arterial 04/06/22 09:14 Sample Site Radial, right 04/06/22 09:14 ABG pH 7.32 (7.35-7.45) L 04/06/22 09:14 ABG pCO2 50.3 mmHg (35-45) H 04/06/22 09:14 ABG pO2 64.3 mmHg (80.0-100.0) L 04/06/22 09:14 ABG HCO3 25.6 mmol/L (22-26) 04/06/22 09:14 ABG O2 Saturation 90.8 04/06/22 09:14 ABG Base Excess -0.9 mmol/L (-2.0-2.0) 04/06/22 09:14 Avila Test Pos 04/06/22 09:14 A-a O2 Gradient Not Reportable 04/06/22 09:14 Hematocrit 31.3 % (42-52) L 04/06/22 09:14 Hgb O2 Saturation 87.9 % (95-100) L 04/06/22 09:14 Carboxyhemoglobin 2.6 %THgb (0.4-20.1) 04/06/22 09:14 Methemoglobin 0.5 % (0.4-1.5) 04/06/22 09:14 Total Hemoglobin 10.2 g/dL (14-18) L 04/06/22 09:14 Sodium 144.0 mmol/L (131-143) H 04/06/22 09:14 Potassium 4.4 mmol/L (3.5-5.0) 04/06/22 09:14 Glucose 127.0 mg/dL (70-115) H 04/06/22 09:14 Ionized Calcium 1.2 mmol/L (1.1-1.4) 04/06/22 09:14 O2 Delivery Device Nrb 04/06/22 09:14 FiO2 15.0 % 04/06/22 09:14 Pay Station Attendant ID Cak 04/06/22 09:14 Sodium 141 mmol/L (136-145) 04/06/22 09:12 Potassium 4.5 mmol/L (3.5-5.1) 04/06/22 09:12 Chloride 105 mmol/L (98-107) 04/06/22 09:12 Carbon Dioxide 25 mmol/L (22-29) 04/06/22 09:12 Anion Gap 15.5 (5-19) 04/06/22 09:12 BUN 17 mg/dL (8-23) 04/06/22 09:12 Creatinine 1.3 mg/dL (0.7-1.2) H 04/06/22 09:12 GFR Calculation 56.1 mL/min (90-130) L 04/06/22 09:12 Glucose 125 mg/dL (65-115) H 04/06/22 09:12 POC Glucose 102 mg/dL (70-110) 04/06/22 11:20 Calculated Osmolality 295 mOsm/kg (285-295) 04/06/22 09:12 Lactic Acid 1.1 mmol/L (0.5-2.2) 04/06/22 09:12 Calcium 9.0 mg/dL (8.5-10.5) 04/06/22 09:12 Iron 11 ug/dL (59-158) L 04/06/22 09:12 TIBC 298 mcg/dl 04/06/22 09:12 % Saturation 3.6 % (20-50) L 04/06/22 09:12 Unsat Iron Binding 287 ug/dL (112-347) 04/06/22 09:12 Ferritin 155 ng/mL (30-400) 04/06/22 09:12 Total Bilirubin 0.4 mg/dL (0.15-1.2) 04/06/22 09:12 AST 14 U/L (0-40) 04/06/22 09:12 ALT 10 U/L (0-41) 04/06/22 09:12 Alkaline Phosphatase 81 U/L (40-130) 04/06/22 09:12 Troponin T Baseline 36 ng/L (0-15) H 04/06/22 09:12 Troponin T 120 Minute 35.55 ng/L (0-15) H 04/06/22 11:28 Delta Troponin T -0.45 ABS# (0-10) L 04/06/22 11:28 NT-Pro-B Natriuret Pep 2725 pg/mL (0-125) H 04/06/22 09:12 Total Protein 7.8 g/dL (6.6-8.7) 04/06/22 09:12 Albumin 4.0 g/dL (3.5-5.2) 04/06/22 09:12 Globulin 3.8 g/dL (1.3-4.6) 04/06/22 09:12 Procalcitonin 0.47 ng/mL (0-0.5) 04/06/22 09:12 Coronavirus 229E (PCR) Not detected (NOT DETECT) 04/06/22 09:52 Influenza Type A Ag negative (Negative) 04/06/22 09:52 Influenza Type B Ag negative (Negative) 04/06/22 09:52 SARS-CoV-2 (PCR) Not detected (NOT DETECT) 04/06/22 09:52 SARS-CoV-2 Ag (Rapid) Cancelled 04/06/22 09:52 Discharge Plan Discharge Patient Disposition: Admitted As Inpatient Admit Provider: Darien Orona Clinical Impression: Acute respiratory failure with hypercapnia, Congestive heart failure, Acute exacerbation of chronic obstructive airways disease, Obesity hypoventilation sy ndrome, Morbid obesity with BMI of 50.0-59.9, adult, Diabetes mellitus with hyperglycemia, with long-term current use of insulin, Anemia, Leukocytosis, Hypothyroidism, Essential (primary) hypertension Condition: Stable Coding Level of Care Code ED 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
--- NOTE | 2022-04-06 09:34 | PC.NURSE ---
PT ARRIVED TO ED WITH SHORTNESS OF BREATH. PT ARRIVED ON 8L NC SATTING 88%. NURSE PAM APPLIED 15L VIA NONREBREATHER PT SATS INCREASED TO 89%. PT THEN PLACED ON BIPAP BY RESPIRATORY. PT SATTING 94%. PT PLACED ON CONTINUOUS NIBP, SPO2, AND CM
[2022-04-06 09:36] LABS: Basophils # 0.1 10^3/uL (0.0-0.1); Basophils % 0.3 %; Eosinophils % 0.1 %; Hematocrit 32.3 % (42.0-52.0); Hemoglobin 9.9 g/dL (11.7-16.6); Lymphocytes # 1.3 10^3/uL (0.8-4.8); Lymphocytes % 7.7 %; Mean Corpuscular HGB Conc 30.7 g/dL (30.0-36.0); Mean Corpuscular Hemoglobin 29.3 pg (28.0-34.0); Mean Corpuscular Volume 95.6 fl (80-94); Mean Platelet Volume 10.3 fL (7.4-10.4); Monocytes # 1.5 10^3/uL (0.2-0.9); Monocytes % 8.8 %; Neutrophils # 14.28 10^3/uL (1.8-7.7); Neutrophils % 82.7 %; Nucleated Red Blood Cells % 0 %; Platelet Count 323 10^3/cmm (130-400); Red Blood Count 3.38 10^6/uL (4.1-5.3); Red Cell Distribution Width 15.1 % (12.1-15.1); White Blood Count 17.3 10^3/uL (4.0-10.0)
[2022-04-06] MEDS: nitroglycerin 1 gm/inch oint Pkt 1 INCH TOPICAL (09:42)
[2022-04-06] MEDS: ondansetron 2 mg/ML SDV 2 mL 4 MG IVP (09:43)
--- NOTE | 2022-04-06 10:05 | PC.NURSE ---
1 INCH NITRO PASTE APPLIED TO PT LEFT CHEST AND SECURED WITH TAPE.
[2022-04-06 10:13] LABS: Lactic Sepsis W/Reflex 1.1 mmol/L (0.5-2.2); Troponin(5th) Baseline 36 ng/L (0-15)
[2022-04-06 10:23] LABS: Alanine Aminotransferase 10 U/L (0-41); Alkaline Phosphatase 81 U/L (40-130); Anion Gap 15.5 (5-19); Aspartate Amino Transferase 14 U/L (0-40); Blood Urea Nitrogen 17 mg/dL (8-23); Carbon Dioxide 25 mmol/L (22-29); Chloride 105 mmol/L (98-107); Globulin 3.8 g/dL (1.3-4.6); Glomerular Filtration Rate 56.1 mL/min (90-130); Glucose 125 mg/dL (65-115); NT Pro B Type Natriuretic Pept 2725 pg/mL (0-125); Osmolality Calculated 295 mOsm/kg (285-295); Potassium 4.5 mmol/L (3.5-5.1); Sodium 141 mmol/L (136-145); Total Bilirubin 0.4 mg/dL (0.15-1.2); Total Protein 7.8 g/dL (6.6-8.7)
[2022-04-06 10:27] LABS: Influenza A by IFA negative (Negative); Influenza B by IFA negative (Negative)
--- NOTE | 2022-04-06 11:19 | ECG_ITS ---
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 Measurements Intervals [place] Rate: 82 P: 0 MS: 0 QRS: 77 QRSD: 119 T: 41 QT: 420 QTc: 491 Interpretive Statements ATRIAL FIBRILLATION INCOMPLETE RIGHT BUNDLE BRANCH BLOCK [90+ ms QRS DURATION, TERMINAL R IN V1/V2, 40+ ms S IN I/aVL/V4/V5/V6] NONSPECIFIC ST & T-WAVE ABNORMALITY ABNORMAL RHYTHM ECG Compared to ECG 04/06/2022 09:24:35 No significant changes Electronically Signed On 04-06-2022 19:02:40 LAND DEVELOPMENT MANAGER by Douglas Tee M.D. [email or web address] Mediumuniversity of mississippi medical centerePatientFindermercy health st. vincent medical center.[employer]/store/OM/[id number]
[2022-04-06 11:22] LABS: Glucose Point of Care 102 mg/dL (70-110)
[2022-04-06 11:51] LABS: Adenovirus Not Detected (NOT DETECT); Chlamydia Pneumoniae Not Detected (NOT DETECT); Coronavirus 229E,HKU1,NL63,OC4 Not Detected (NOT DETECT); Human Metapneumovirus Not Detected (NOT DETECT); Human Rhinovirus/Enterovirus Not Detected (NOT DETECT); Influenza A Not Detected (NOT DETECT); Influenza A H1 Not Detected (NOT DETECT); Influenza A H1-2009 Not Detected (NOT DETECT); Influenza A H3 Not Detected (NOT DETECT); Influenza B Not Detected (NOT DETECT); Mycoplasma Pneumoniae Not Detected (NOT DETECT); Parainfluenza Virus Type 1 Not Detected (NOT DETECT); Parainfluenza Virus Type 2 Not Detected (NOT DETECT); Parainfluenza Virus Type 3 Not Detected (NOT DETECT); Parainfluenza Virus Type 4 Not Detected (NOT DETECT); Respiratory Syncytial Virus A Not Detected (NOT DETECT); Respiratory Syncytial Virus B Not Detected (NOT DETECT); SARS-COV-2 Not Detected (NOT DETECT)
[2022-04-06 11:56] LABS: Troponin 5 2HR 35.55 ng/L (0-15)
[2022-04-06 11:57] LABS: Troponin 5 2HR Delta -0.45 ABS# (0-10)
--- NOTE | 2022-04-06 12:08 | PC.NURSE ---
Jennifer report called to
--- NOTE | 2022-04-06 12:51 | PC.NURSE ---
report called to odilia CARRERA
--- NOTE | 2022-04-06 14:47 | P.HP_ITS ---
Providers/Chief Complaint Admitting Physician: Darien Orona MD Primary Care Provider: SKY Samuel-C Chief Complaint: low ox History of Present Illness Julius Dunlap is a 61 year old male presenting to the emergency department with shortness of breath. He reports this has been getting worse over the last 5 days or so. 2 days ago he had some chest discomfort, lower chest he describes as pressure. He has not had any fevers, cough, significant wheezing. He re ports he chronically has some leg edema, but it is no worse than usual. He has not had any vomiting, choking when he eats, or other illness. In reviewing with the patient, as well as pulmonary notes it is apparent he is usually on trilogy whenever he sleeps or lays down and otherwise 6 L per nasal cannula although recently he reports he had to turn up as high as 10 L. Review of Systems General: Reports: 10 or more systems reviewed and unremarkable except in HPI and below Const: Reports: fatigue and malaise; Denies: fever(s) or chills Eyes: Denies: change in vision ENMT: Denies: throat pain Card: Reports: chest pain and swelling of feet/ankles Resp: Reports: dyspnea; Denies: productive cough or non-productive cough GI: Denies: abdominal pain, nausea, vomiting, hematochezia or melena : Denies: flank pain Musc: Denies: neck pain Skin/Breast: Denies: rash Neuro: Denies: headache(s) Psych: Denies: anxiety or depression Endo: Denies: polyuria Rafal/Lymph: Denies: easy bruising All/Imm: Denies: urticaria Medications/Allergies Home Medications Medication Instructions Recorded Confirmed Last Taken Type ipratropium 0.5 mg-albuterol 3 mg 3 ml inhalation QID PRN Shortness 04/11/19 04/06/22 02/17/21 History (2.5 mg base)/3 mL nebulization Of Breath soln amiodarone 200 mg tablet 200 mg PO DAILY #90 tabs 11/04/21 04/06/22 04/06/22 Rx rivaroxaban 20 mg tablet (Xarelto) 20 mg PO DAILY #90 tabs 11/04/21 04/06/22 04/06/22 Rx flash glucose scanning reader #1 ea 11/17/21 04/06/22 Unknown Rx (FreeStyle Jeremy 2 [place]) flash glucose sensor (FreeStyle #1 ea 11/17/21 04/06/22 Unknown Rx Jeremy 2 Sensor kit) amlodipine 10 mg tablet 10 mg PO DAILY #90 tabs 01/03/22 04/06/22 04/06/22 Rx colesevelam 625 mg tablet (WelChol) 1,875 mg PO BID #540 tabs 01/03/22 04/06/22 04/06/22 Rx hydralazine 100 mg tablet 100 mg PO TID #270 tabs 01/03/22 04/06/22 04/06/22 Rx potassium chloride 20 mEq 20 meq PO BID #180 tabs 01/03/22 04/06/22 04/06/22 Rx tablet,extended release pen needle, diabetic 31 gauge x #100 ea 01/27/22 04/06/22 Unknown Rx 5/16 (TechLITE Pen Needle) buspirone 15 mg tablet 15 mg PO BID #60 tabs 02/17/22 04/06/22 04/06/22 Rx cetirizine 10 mg tablet 10 mg PO DAILY #30 tabs 02/17/22 04/06/22 04/06/22 Rx furosemide 40 mg tablet (Lasix) 40 mg PO BID edema #60 tabs 02/17/22 04/06/22 04/06/22 Rx insulin degludec 100 unit/mL (3 60 unit (0.6 mL) SUBCUT BID #50 mL 02/17/22 04/06/22 04/06/22 Rx mL) subcutaneous pen (Tresiba FlexTouch U-100 insulin) liraglutide 0.6 mg/0.1 mL (18 mg/3 1.8 mg (0.3 mL) SUBCUT Q24H #9 mL 02/17/22 04/06/22 04/06/22 Rx mL) subcutaneous pen injector (Victoza 3-Leonides) metformin 500 mg tablet,extended 1,000 mg PO BID #120 tabs 02/17/22 04/06/22 04/06/22 Rx release 24 hr montelukast 10 mg tablet 10 mg PO DAILY #30 tabs 02/17/22 04/06/22 04/06/22 Rx (Singulair) rosuvastatin 20 mg tablet 20 mg PO DAILY #30 tabs 02/17/22 04/06/22 04/06/22 Rx sacubitril 49 mg-valsartan 51 mg 1 tab PO BID #60 tabs 02/17/22 04/06/22 04/06/22 Rx tablet (Entresto) umeclidinium 62.5 mcg-vilanterol 1 inh inhalation Q24H #60 ea 02/17/22 04/06/22 04/05/22 Rx 25 mcg/actuation powdr for inhalation (Anoro Ellipta) venlafaxine 150 mg 150 mg PO QAM #30 caps 02/17/22 04/06/22 04/06/22 Rx capsule,extended release 24 hr (Effexor XR) levothyroxine 175 mcg tablet 175 mcg PO DAILY #30 tabs 02/21/22 04/06/22 04/06/22 Rx fenofibrate nanocrystallized 145 145 mg PO BEDTIME 04/06/22 04/06/22 04/05/22 History mg tablet Allergies Allergy/AdvReac Type Severity Reaction Status Date / Time No Known Allergies Allergy Verified 02/17/22 08:53 PFSH Acute PFSH: Medical History (Updated 04/06/22 @ 15:02 by Darien Orona MD) Acquired lymphedema Afib Allergic rhinitis due to pollen Anxiety Chronic atrial fibrillation with rapid ventricular response Chronic diastolic (congestive) heart failure Chronic kidney disease Chronic respiratory failure Diabetes mellitus with hyperglycemia, with long-term current use of insulin Essential (primary) hypertension GERD (gastroesophageal reflux disease) Hyperlipemia Hypothyroidism Hypoxia, sleep related MRSA infection EDGAR (obstructive sleep apnea) Pneumonia, unspecified organism Surgical History H/O esophagogastroduodenoscopy (02/18/21) History of bilateral cataract extraction 2019 and 2020 History of colonoscopy (02/18/21) History of gangrene Left buttocks requiring surgery May 2014 Family History Father Cancer Mother Heart disease CAD (coronary artery disease) Diabetes Heart attack Stroke Brother Heart attack Clotting disorder Stroke Sister Stroke Denies family history of Dementia Chronic kidney disease (CKD) Suicide Anesthesia complication Bleeding disorder Lung disease Social History Smoking and tobacco status: current every day smoker cigarettes Packs smoked per day: 1 Years cigarettes smoked: 50 [ Other cigarette details: Started at age 10] Second hand smoke exposure: Yes Smoking risk assessment/counseling performed?: Yes Alcohol intake: former Year of sobriety/quit date alcohol: 1991 Desire information about alcohol rehabilitation?: No Counseling given: No Desire information about substance/drug rehabilitation?: No Counseling given: No Adopted: No Caregiver/support person: No Lives independently: Yes Household members: spouse Housing: House Marital status: service: No Current occupational status: disabled Pets and animals: Yes History of recent travel: No Current gender identity: Male Vitals/I&O/Wt Last Vital Signs Temp 97.6 F 04/06/22 09:01 Pulse 78 04/06/22 13:51 Resp 19 H 04/06/22 12:35 BP 133/72 04/06/22 12:35 Pulse Ox 91 04/06/22 13:51 O2 Del Method 04/06/22 13:00 O2 Flow Rate 15 04/06/22 09:01 FiO2 60 04/06/22 13:51 Weight last 48 hrs Weight 188.241 kg Physical Exam Narrative: General exam is a male, no distress, currently on BiPAP with an FiO2 of 60% HEENT: Atraumatic normocephalic. Oropharynx not examined as he is on BiPAP Neck is supple no lymphadenopathy thyromegaly Cardiovascular regular rate and rhythm without murmur, heart sounds distant Lungs diminished breath sounds bilaterally but no wheezes or crackles Abdomen is soft, obese. Nontender. Positive bowel sounds. exam is deferred Extremities no cyanosis clubbing. 1+ edema noted bilaterally with ichthyotic changes consistent with chronic edema as well as hemosiderin staining. Skin no rash, see findings above Neuro no obvious focal deficits. Data 04/06/22 09:12 04/06/22 09:12 Other Labs: ABG demonstrated pH 7.32, PCO2 50, PO2 of 64 on a nonrebreather Lactic acid normal, calcium normal, LFTs normal Troponin 36 with repeat of 35 Procalcitonin ordered BNP elevated at 2725 COVID influenza negative Chest x-ray cardiomegaly, likely atelectasis, overall poor film secondary to obesity EKG demonstrates atrial fibrillation, normal axis, incomplete right bundle, nonspecific ST-T wave changes Micro: Microbiology 04/06/22 09:55 Blood Culture - Preliminary Blood SPECIMEN COLLECTED 04/06/22 09:53 Blood Culture - Preliminary Blood SPECIMEN COLLECTED A&P Assessment and plan (1) Acute respiratory failure with hypercapnia: Patient was presents with acute hypercarbic and hypoxic respiratory failure It is difficult to ascertain the true etiology of this. He has obesity hypoventilation, likely small airway disease, underlying diastolic heart failure likely all playing a part. He is not wheezing to suggest a severe acute COPD exacerbation. Initial treatment will be with BiPAP(he is usually always on trilogy whenever sleeping and typically uses at least 6 L of oxygen when not on trilogy) and wean as tolerated (2) Acute diastolic heart failure: Diuresis with Lasix 60 mg IV every 12 hours Close follow-up of electrolytes including magnesium and potassium Continue his Entresto Secondary to patient's report of chest discomfort 2 days ago, will repeat echo to see if EF is changed. Hopefully a good enough picture will be obtained, although I note will be a challenge with his body habitus. (3) Leukocytosis: Will obtain procalcitonin Influenza, COVID-negative Doubt bacterial infection but will continue to monitor No pattern to suggest CLL. However, he does have elevated white blood cell count on many of his labs. Could consider outpatient follow-up with hematology (4) Anemia: Anemia panel Stool Hemoccult Add Protonix Plan Small airway disease. DuoNeb every 6 hours, budesonide Atrial fibrillation. Continue home medications Diabetes mellitus. Continue long-acting insulin. Moderate sliding scale insulin. Consistent carb diet. Multiple other medical problems as outlined in past medical history Full code Merarirelto will suffice for DVT prophylaxis Attestations Medical Necessity Statement*: Will need greater than 2 midnight stay for evaluation and treatment of acute congestive heart failure exacerbation Coding Level of Care Code Acute Environmental Control Administrator for [facility] Fwd Diagnoses Acute respiratory failure with hypercapnia J96.02 Acute diastolic heart failure I50.31 Leukocytosis D72.829 Anemia D64.9
--- NOTE | 2022-04-06 15:05 | ECG_ITS ---
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 Measurements Intervals [place] Rate: 81 P: 0 WI: 0 QRS: 84 QRSD: 112 T: 60 QT: 392 QTc: 455 Interpretive Statements ATRIAL FIBRILLATION INCOMPLETE RIGHT BUNDLE BRANCH BLOCK [90+ ms QRS DURATION, TERMINAL R IN V1/V2, 40+ ms S IN I/aVL/V4/V5/V6] NONSPECIFIC ST & T-WAVE ABNORMALITY ABNORMAL RHYTHM ECG Compared to ECG 04/06/2022 11:33:27 No significant changes Electronically Signed On 04-06-2022 19:01:43 RADIO PERSONALITY by Douglas Tee M.D. [email or web address] Wearablesour lady of mercy hospital [facility] [email or web address]/store/OM/[id number]
--- NOTE | 2022-04-06 15:09 | USCV_ITS ---
Julius Dulnap Age: 61 Gender: M : 1960 Exam Date: 04/06/2022 15:57 Ordering Phys: Darien Orona MD Technologist: Brendon Avila [place] [facility] [place]: CHF BP: 162 / 93 HR: 85 Rhythm: Sinus Technical Quality: Adequate MEASUREMENTS (Male / Female) Normal Values 2D ECHO LV Diastolic Diameter PLAX 5.2 cm 4.2 - 5.9 / 3.9 - 5.3 cm LV Systolic Diameter PLAX 2.8 cm IVS Diastolic Thickness 1.4 cm 0.6 - 1.0 / 0.6 - 0.9 cm IVS Systolic Thickness 1.5 cm LVPW Diastolic Thickness 1.6 cm 0.6 - 1.0 / 0.6 - 0.9 cm LVPW Systolic Thickness 1.3 cm LVOT Diameter 2.0 cm LV Ejection Fraction 2D Teich 76.5 % LV Ejection Fraction MOD 2C 79.0 % LV Ejection Fraction 2C AL 79.1 % LA Diameter 5.3 cm IVC Diameter 2.6 cm M-MODE Aortic Annulus Diameter 4.4 cm LA Ao Ratio MM 1.0 MV E Point Septal Separation 0.9 cm DOPPLER AV Peak Velocity 141.0 cm/s LVOT Peak Velocity 95.0 cm/s AV Area Cont Eq vti 2.5 cm squared AV Area Cont Eq pk 2.2 cm squared MV Area PHT 5.0 cm squared Mitral E to A Ratio 2.3 MV E' Velocity 63.0 cm/s Mitral E to MV E' Ratio 10.3 Mitral E to LV E' Lateral Ratio 9.0 Mitral E to LV E' Septal Ratio 12.2 TR Peak Velocity 253.0 cm/s TR Peak Gradient 25.6 mmHg TV Peak E Velocity 115.0 cm/s Right Atrial Pressure 3.0 mmHg Pulmonary Artery Systolic Pressu 28.6 mmHg RV Acceleration Time 0.1 s FINDINGS Left Ventricle Normal left ventricular size, systolic function and increased wall thickness, with no regional wall motion abnormalities. Left ventricular ejection fraction is estimated at 60-65 %. Right Ventricle Normal right ventricular size and systolic function. Right ventricular systolic pressure 41 mmHg. Right Atrium Normal right atrial size. Left Atrium Mildly increased left atrial size. Mitral Valve Mild mitral annular calcification. No mitral valve stenosis. Trace mitral valve regurgitation. Aortic Valve Structurally normal trileaflet aortic valve. No aortic valve stenosis. No aortic valve regurgitation. Tricuspid Valve Structurally normal tricuspid valve. Trace tricuspid valve regurgitation. Pulmonic Valve Pulmonic valve not well visualized. Pericardium No pericardial effusion. Aorta Normal size aortic root and proximal ascending aorta. IVC Dilated IVC with decreased respiratory variation. CONCLUSIONS 1. Normal left ventricular size, systolic function and increased wall thickness, with no regional wall motion abnormalities. Left ventricular ejection fraction is estimated at 60-65 %. 2. Mildly increased left atrial size. 3. Pulmonary artery pressure estimated at 41 mm Hg. 4. No change whe compared to study report dated 12/03/2018. Shelby Jones MD (Electronically Signed) Final Date: 07 April 2022 08:29 S
[2022-04-06 15:22] LABS: Procalcitonin 0.47 ng/mL (0-0.5)
[2022-04-06] MEDS: FUROsemide 10 mg/mL SDV 10mL 60 MG IVP (15:31)
[2022-04-06 15:42] LABS: Ferritin 155 ng/mL (30-400); Iron 11 ug/dL (59-158); Percent Saturation 3.6 % (20-50); Total Iron Binding Capacity 298 mcg/dl; Unsaturated Iron Binding 287 ug/dL (112-347)
[2022-04-06 16:15] LABS: Troponin 5 6HR 36.95 ng/L (0-15); Troponin 5 6HR Delta 0.95 ng/L (0-12)
[2022-04-06 17:34] LABS: Glucose Point of Care 71 mg/dL (70-110)
[2022-04-06] MEDS: sacubitril/valsartan 24-26 mg Tablet 2 EACH PO (17:43)
[2022-04-06] MEDS: BuSPIRONE 10 mg Tablet 15 MG PO (17:43)
[2022-04-06] MEDS: budesonide 0.5 mg/2 mL Neb INHALATION (19:45)
[2022-04-06] MEDS: ipratropium-albuterol 3 mL Neb INHALATION (19:45)
[2022-04-06 21:09] LABS: Glucose Point of Care 80 mg/dL (70-110)
[2022-04-06] MEDS: fenofibrate 145 mg Tablet PO (21:31)
[2022-04-06] MEDS: hyDRALAzine 50 mg Tablet 100 MG PO (21:31)
[2022-04-07] VITALS (15 sets, daily range): BP systolic 103–122; BP diastolic 57–71; PULSE 73–100; RESP 14–26; TEMP 36.4–36.9; O2SAT 90–100
[2022-04-07] MEDS: FUROsemide 10 mg/mL SDV 10mL 60 MG IVP (02:02)
[2022-04-07 02:11] LABS: Glucose Point of Care 88 mg/dL (70-110)
[2022-04-07 04:24] LABS: Basophils # 0.1 10^3/uL (0.0-0.1); Basophils % 0.5 %; Eosinophils # 0.2 10^3/uL (0.0-0.8); Eosinophils % 1.5 %; Hematocrit 28.6 % (42.0-52.0); Hemoglobin 8.6 g/dL (11.7-16.6); Lymphocytes % 15.7 %; Mean Corpuscular HGB Conc 30.1 g/dL (30.0-36.0); Mean Corpuscular Hemoglobin 28.9 pg (28.0-34.0); Mean Platelet Volume 10.8 fL (7.4-10.4); Monocytes # 1.2 10^3/uL (0.2-0.9); Monocytes % 9.6 %; Neutrophils # 9.32 10^3/uL (1.8-7.7); Neutrophils % 72.3 %; Nucleated Red Blood Cells % 0 %; Platelet Count 283 10^3/cmm (130-400); Red Blood Count 2.98 10^6/uL (4.1-5.3); Red Cell Distribution Width 14.9 % (12.1-15.1); White Blood Count 12.9 10^3/uL (4.0-10.0)
[2022-04-07 04:45] LABS: Blood Urea Nitrogen 27 mg/dL (8-23); Calcium 8.5 mg/dL (8.5-10.5); Carbon Dioxide 24 mmol/L (22-29); Chloride 106 mmol/L (98-107); Glomerular Filtration Rate 36.2 mL/min (90-130); Glucose 110 mg/dL (65-115); Osmolality Calculated 296 mOsm/kg (285-295); Sodium 140 mmol/L (136-145)
[2022-04-07 05:10] LABS: Anion Gap 14.9 (5-19)
[2022-04-07 05:11] LABS: Potassium 4.9 mmol/L (3.5-5.1)
[2022-04-07 05:51] LABS: Magnesium 2.5 mg/dL (1.7-2.3)
[2022-04-07] MEDS: venlafaxine ER (24HR) 150 mg Capsule PO (05:53)
[2022-04-07 06:39] LABS: Glucose Point of Care 117 mg/dL (70-110)
[2022-04-07] MEDS: ipratropium-albuterol 3 mL Neb INHALATION ×3 (07:39→19:47)
[2022-04-07] MEDS: budesonide 0.5 mg/2 mL Neb INHALATION ×2 (07:39→19:47)
[2022-04-07] MEDS: montelukast sodium 10 mg Tablet PO (08:52)
[2022-04-07] MEDS: BuSPIRONE 10 mg Tablet 15 MG PO ×2 (08:53→17:46)
[2022-04-07] MEDS: amlodipine 10 mg Tablet PO (08:54)
[2022-04-07] MEDS: levothyroxine 175 mcg Tablet PO (08:55)
[2022-04-07] MEDS: hyDRALAzine 50 mg Tablet 100 MG PO ×2 (08:55→21:46)
[2022-04-07] MEDS: rivaroxaban 10 mg Tablet 20 MG PO (08:55)
[2022-04-07] MEDS: atorvastatin 40 mg Tablet PO (08:56)
[2022-04-07] MEDS: cetirizine 10 mg Tablet PO (08:56)
[2022-04-07] MEDS: amiodarone 200 mg Tablet PO (08:56)
[2022-04-07] MEDS: pantoprazole DR 40 mg Tablet PO (08:57)
--- NOTE | 2022-04-07 11:06 | PC.CHAP ---
Pastoral Care Encounter/Spiritual Assessment Type of Contact [] Declined sap portal architect visit [] Patient/Family/Request visit [] Outpatient visit [] Follow-up visit [] Physician referral [] Code/Alert [x] Routine visit [] Staff referral [] Actively dying [] Patient sleeping [] Family support [] [] Out of room [] Palliative care [] [x] Receiving care in room [] Pre-surgical visit [] Trauma [] Long length of stay [] ICU visit [] Other: Relational/Emotional Strength [] Patient feels connected with others/family/visitors/staff [] Distress [] Loneliness/isolation [] Abandonment Spirituality of Patient [] Person of Monalisa [] Attends Nondenominational of their Monalisa [] Believes in Prayer [] Reads Bible or Sikhism materials [] There are Spiritual issues to be addressed Paper Goods Machine Set Up Operator Interventions [x] Prayer [] Active listening [] Non-anxious presence [] Spiritual/emotional support [] Crisis/trauma care [] Spiritual counseling [] Bereavement support [] Provided bereavement packet [] Provided Bible/devotional materials [] Provided toy/stuffed animal, coloring book to patient or family member [] Provided Communion [] Anointing/[place] [] Salvation [] Completed spiritual assessment [] Other: Impact on Illness or Injury [] Angry [] Fearful [] Anxious [] Often cries [] Exhaustion [] Unable to work [] Unable to attend baptist [] Unable to walk/stand [] Unable to read [] Unable to drive [] Unable to eat/drink [] Unable to sleep [] Unable to be with family [] Patient intubated [] Other: Summary Time spent with patient
--- NOTE | 2022-04-07 11:09 | P.PN_ITS ---
Subjective Subjective: Julius reports he feels little bit better. Would like to take off the BiPAP and see how he does. No chest pain. Medications: Reviewed: Yes Vitals/I&O/Wt Last Vital Signs Temp 98.0 F 04/07/22 04:00 Pulse 81 04/07/22 09:01 Resp 24 H 04/07/22 09:01 BP 122/58 04/07/22 09:01 Pulse Ox 96 04/07/22 09:01 O2 Del Method 04/07/22 07:42 O2 Flow Rate 15 04/06/22 09:01 FiO2 65 04/07/22 07:46 04/06/22 04/07/22 04/07/22 22:59 06:59 14:59 Intake Total 600 / 600 360 / 960 Output Total 1500 / 1500 Balance 600 / 600 -1140 / -540 Weight last 48 hrs Weight 188.241 kg Physical Exam Narrative: General exam no distress, on BiPAP Neck is supple no lymphadenopathy thyromegaly Cardiovascular regular rate and rhythm without murmur, heart sounds distant Lungs diminished breath sounds bilaterally but no wheezes or crackles Abdomen is soft, obese. Nontender. Positive bowel sounds. exam Jiménez noted Extremities no cyanosis clubbing. Trace edema bilaterally Skin no rash, see findings above Data 04/07/22 03:52 04/07/22 03:52 Micro: Microbiology 04/06/22 09:55 Blood Culture - Preliminary Blood NEGATIVE TO DATE 04/06/22 09:53 Blood Culture - Preliminary Blood NEGATIVE TO DATE A&P Assessment and plan (1) Acute respiratory failure with hypercapnia: Patient was presents with acute hypercarbic and hypoxic respiratory failure It is difficult to ascertain the true etiology of this. He has obesity hypoventilation, likely small airway disease, underlying diastolic heart failure likely all playing a part. He is not wheezing to suggest a severe acute COPD exacerbation. Initial treatment will be with BiPAP(he is usually always on trilogy whenever sleeping and typically uses at least 6 L of oxygen when not on trilogy) and wean as tolerated He has been diuresed as much as possible currently. We will try off BiPAP, and reassess (2) Acute diastolic heart failure: Discontinue diuresis today. His creatinine has increased to 1.9. Hold Entresto as well. Repeat creatinine tomorrow Echo demonstrates preserved EF, pulmonary artery pressure 40, no overall change (3) Leukocytosis: Procalcitonin negative Influenza, COVID-negative Doubt bacterial infection but will continue to monitor No pattern to suggest CLL. However, he does have elevated white blood cell count on many of his labs. Could consider outpatient follow-up with hematology. This is improved overnight to slightly above normal (4) Anemia: Anemia panel completed. Appears to have iron deficiency anemia. Iron transfusion today. Consider repeat tomorrow. Await stool Hemoccult Continue Protonix Plan Small airway disease. DuoNeb every 6 hours, budesonide Atrial fibrillation. Continue home medications. If found to be Hemoccult positive, may have to reconsider use of Xarelto Diabetes mellitus. Continue long-acting insulin. Moderate sliding scale insulin. Consistent carb diet. Acute kidney injury. Hold Entresto, Lasix Multiple other medical problems as outlined in past medical history Full code Xarelto will suffice for DVT prophylaxis Attestations Medical Necessity Statement*: Needs continued close follow-up for acute on chronic respiratory failure. Coding Level of Care Code Acute Practice Support Specialist for Alyse [place] Diagnoses Acute respiratory failure with hypercapnia J96.02 Acute diastolic heart failure I50.31 Leukocytosis D72.829 Anemia D64.9
[2022-04-07] MEDS: iron sucrose 200 MG in sodium chloride 0.9% (100 ml) 100 ML 220 MG IV (12:01)
--- NOTE | 2022-04-07 15:12 | PC.NURSE ---
I did not give the 1500 Hydralizine because blood pressure was 103/62 and I didn't want to drop it further. I will be monitoring his blood pressure to see if it rises.
[2022-04-07 17:54] LABS: Glucose Point of Care 173 mg/dL (70-110)
[2022-04-07 17:54] LABS: Glucose Point of Care 225 mg/dL (70-110)
[2022-04-07] MEDS: insulin lispro 100 unit/1 mL SUBCUT (17:56)
[2022-04-07 20:38] LABS: Glucose Point of Care 115 mg/dL (70-110)
[2022-04-07] MEDS: fenofibrate 145 mg Tablet PO (21:46)
[2022-04-07] MEDS: diphenhydrAMINE 25 mg Capsule PO (22:18)
[2022-04-07] MEDS: acetaminophen 325 mg Tablet 650 MG PO (22:18)
[2022-04-08] VITALS (11 sets, daily range): BP systolic 109–159; BP diastolic 56–73; PULSE 73–88; RESP 17–25; TEMP 36.7–36.9; O2SAT 83–96
[2022-04-08] MEDS: ipratropium-albuterol 3 mL Neb INHALATION ×3 (01:53→13:19)
[2022-04-08 05:50] LABS: Basophils # 0.1 10^3/uL (0.0-0.1); Basophils % 0.5 %; Eosinophils # 0.4 10^3/uL (0.0-0.8); Hematocrit 29.2 % (42.0-52.0); Hemoglobin 8.7 g/dL (11.7-16.6); Lymphocytes # 2.9 10^3/uL (0.8-4.8); Lymphocytes % 22.4 %; Mean Corpuscular HGB Conc 29.8 g/dL (30.0-36.0); Mean Corpuscular Volume 97.3 fl (80-94); Mean Platelet Volume 10.5 fL (7.4-10.4); Monocytes # 1.2 10^3/uL (0.2-0.9); Monocytes % 9.3 %; Neutrophils # 8.18 10^3/uL (1.8-7.7); Neutrophils % 64.3 %; Nucleated Red Blood Cells % 0 %; Platelet Count 305 10^3/cmm (130-400); Red Cell Distribution Width 14.7 % (12.1-15.1); White Blood Count 12.7 10^3/uL (4.0-10.0)
[2022-04-08 06:09] LABS: Glucose Point of Care 105 mg/dL (70-110)
[2022-04-08 06:11] LABS: Anion Gap 13.3 (5-19); Blood Urea Nitrogen 31 mg/dL (8-23); Calcium 9.1 mg/dL (8.5-10.5); Carbon Dioxide 27 mmol/L (22-29); Chloride 105 mmol/L (98-107); Glomerular Filtration Rate 36.2 mL/min (90-130); Glucose 99 mg/dL (65-115); Osmolality Calculated 299 mOsm/kg (285-295); Potassium 4.3 mmol/L (3.5-5.1); Sodium 141 mmol/L (136-145)
[2022-04-08] MEDS: venlafaxine ER (24HR) 150 mg Capsule PO (06:41)
[2022-04-08] MEDS: budesonide 0.5 mg/2 mL Neb INHALATION (07:37)
[2022-04-08] MEDS: amlodipine 10 mg Tablet PO (09:21)
[2022-04-08] MEDS: atorvastatin 40 mg Tablet PO (09:21)
[2022-04-08] MEDS: amiodarone 200 mg Tablet PO (09:21)
[2022-04-08] MEDS: BuSPIRONE 10 mg Tablet 15 MG PO (09:21)
[2022-04-08] MEDS: hyDRALAzine 50 mg Tablet 100 MG PO (09:21)
[2022-04-08] MEDS: rivaroxaban 10 mg Tablet 20 MG PO (09:21)
[2022-04-08] MEDS: cetirizine 10 mg Tablet PO (09:21)
[2022-04-08] MEDS: levothyroxine 175 mcg Tablet PO (09:22)
[2022-04-08] MEDS: pantoprazole DR 40 mg Tablet PO (09:22)
[2022-04-08] MEDS: montelukast sodium 10 mg Tablet PO (09:22)
[2022-04-08 11:17] LABS: Glucose Point of Care 172 mg/dL (70-110)
--- NOTE | 2022-04-08 11:20 | P.DS_ITS ---
Discharge Providers Date of Admission: 04/06/22 11:43 Date of Discharge: April 08, 2022 Attending Provider at Admission: Darien Orona MD Attending Provider at Discharge: Davis Rai MD Primary Care Provider: YONATHAN Samuel Diagnoses at Discharge Discharge Diagnosis (1) Acute respiratory failure with hypercapnia: Status: Acute (2) Acute diastolic heart failure: Status: Acute (3) Leukocytosis: Status: Acute (4) Anemia: Status: Acute Reason for Visit Reason for Visit: [facility] Hospital Course Hospital Course 61-year-old male came in with chief complaint of progressively worsening shortness of breath as well as some chest discomfort, he was admitted for the management of respiratory failure with hypoxia and hypercapnia, likely secondary to decompensated heart failure with preserved ejection fraction, patient was started on IV diuresis, to which she responded well, later diuresis had to be stopped because patient developed PETE on CKD, serum creatinine at the time of discharge was 1.9, appears that it has peaked, Lasix has been kept on hold on discharge, as well as Entresto, patient has been asked to repeat BMP in a week, and follow-up with her primary care physician, at that point in time, decision regarding resuming, Lasix as well as Entresto can be taken. At the time of discharge he was denying any shortness of breath, chest pain.During the hospital stay patient was also managed for iron deficiency anemia, received 2 bags of IV iron, stool FOBT is positive, patient is currently on Xarelto, for his A. fib, risk and benefit of continuing anticoagulation has been discussed with the patient and his , H&H is a stable at:8.10/21, patient has been asked to Follow repeat CBC in a week, if H&H continues to remain stable Xarelto can be safely continued, if there is a significant drop, then patient will have to stop Xarelto, at that time he will need EGD and colonoscopy, patient has also been e ducated on signs of hypovolemia.Currently he is also been started on Protonix 40 p.o. daily.Overall patient has responded well to above medical management and is being discharged in stable condition to home, and will follow with the primary care physician as outpatient. Physical Exam Const: COMMON NORMALS: patient oriented x3 HENMT: COMMON NORMALS: normocephalic and atraumatic HEAD & SCALP: normocephalic and atraumatic Resp: COMMON NORMALS: clear to auscultation bilaterally EFFORT & INSPECTION: Yes symmetric chest movement AUSCULTATION: clear to auscultation bilaterally Cardio: COMMON NORMALS: regular rate, regular rhythm, S1 normal heart sound present, S2 normal heart sound present, No gallops present (Cardio), No murmurs present (Cardio), No rub (Cardio) and Peripheral pulses 2+ throughout RATE: regular rate RHYTHM: regular rhythm HEART SOUNDS: S1 normal heart sound present and S2 normal heart sound present PERIPHERAL PULSES: Peripheral pulses 2+ throughout GI: COMMON NORMALS: Normal to inspection, nondistended, normoactive bowel sounds present, Soft to palpation, non-tender, No hepatosplenomegaly present and no masses AUSCULTATION: Yes normoactive bowel sounds PALPATION: Yes Soft to palpation and Yes No hepatosplenomegaly present RECTAL EXAM: Yes deferred Extremity: COMMON NORMALS: no clubbing, cyanosis or edema and no pedal edema Neuro: COMMON NORMALS: patient oriented x3 Discharge Data Studies Completed and Pending Completed Studies During Hospitalization Category Date Time Status XR chest 1V portable [id number] Stat Exams 04/06/22 09:01 Completed CV. echo complete* [id number] Routine Ultrasound 04/06/22 15:09 Completed Pending at discharge Category Date Time Status Blood Culture Stat Lab 04/06/22 09:55 Results Radiology Impressions Chest X-Ray 04/06/22 09:01 Impression: 1. Cardiomegaly. 2. Bibasilar patchy opacities most likely atelectasis. Laboratory Results WBC 12.7 10^3/uL (4.0-10.0) H 04/08/22 03:19 RBC 3.00 10^6/uL (4.1-5.3) L 04/08/22 03:19 Hgb 8.7 g/dL (11.7-16.6) L 04/08/22 03:19 Hct 29.2 % (42.0-52.0) L 04/08/22 03:19 MCV 97.3 fl (80-94) H 04/08/22 03:19 MCH 29.0 pg (28.0-34.0) 04/08/22 03:19 MCHC 29.8 g/dL (30.0-36.0) L 04/08/22 03:19 RDW 14.7 % (12.1-15.1) 04/08/22 03:19 Plt Count 305 10^3/cmm (130-400) 04/08/22 03:19 MPV 10.5 fL (7.4-10.4) H 04/08/22 03:19 Neut % (Auto) 64.3 % 04/08/22 03:19 Lymph % (Auto) 22.4 % 04/08/22 03:19 Graves % (Auto) 9.3 % 04/08/22 03:19 Eos % (Auto) 3.0 % 04/08/22 03:19 Baso % (Auto) 0.5 % 04/08/22 03:19 Neut # (Auto) 8.18 10^3/uL (1.8-7.7) H 04/08/22 03:19 Lymph # (Auto) 2.9 10^3/uL (0.8-4.8) 04/08/22 03:19 Graves # (Auto) 1.2 10^3/uL (0.2-0.9) H 04/08/22 03:19 Eos # (Auto) 0.4 10^3/uL (0.0-0.8) 04/08/22 03:19 Baso # (Auto) 0.1 10^3/uL (0.0-0.1) 04/08/22 03:19 Nucleated RBC % (auto) 0 % 04/08/22 03:19 Nucleated RBCs # 0.0 /100WBC 04/08/22 03:19 Specimen Type Arterial 04/06/22 09:14 Sample Site Radial, right 04/06/22 09:14 ABG pH 7.32 (7.35-7.45) L 04/06/22 09:14 ABG pCO2 50.3 mmHg (35-45) H 04/06/22 09:14 ABG pO2 64.3 mmHg (80.0-100.0) L 04/06/22 09:14 ABG HCO3 25.6 mmol/L (22-26) 04/06/22 09:14 ABG O2 Saturation 90.8 04/06/22 09:14 ABG Base Excess -0.9 mmol/L (-2.0-2.0) 04/06/22 09:14 Avila Test Pos 04/06/22 09:14 A-a O2 Gradient Not Reportable 04/06/22 09:14 Hematocrit 31.3 % (42-52) L 04/06/22 09:14 Hgb O2 Saturation 87.9 % (95-100) L 04/06/22 09:14 Carboxyhemoglobin 2.6 %THgb (0.4-20.1) 04/06/22 09:14 Methemoglobin 0.5 % (0.4-1.5) 04/06/22 09:14 Total Hemoglobin 10.2 g/dL (14-18) L 04/06/22 09:14 Sodium 144.0 mmol/L (131-143) H 04/06/22 09:14 Potassium 4.4 mmol/L (3.5-5.0) 04/06/22 09:14 Glucose 127.0 mg/dL (70-115) H 04/06/22 09:14 Ionized Calcium 1.2 mmol/L (1.1-1.4) 04/06/22 09:14 O2 Delivery Device Nrb 04/06/22 09:14 FiO2 15.0 % 04/06/22 09:14 Dye And Chemical Coordinator ID Cak 04/06/22 09:14 Sodium 141 mmol/L (136-145) 04/08/22 03:19 Potassium 4.3 mmol/L (3.5-5.1) 04/08/22 03:19 Chloride 105 mmol/L (98-107) 04/08/22 03:19 Carbon Dioxide 27 mmol/L (22-29) 04/08/22 03:19 Anion Gap 13.3 (5-19) 04/08/22 03:19 BUN 31 mg/dL (8-23) H 04/08/22 03:19 Creatinine 1.9 mg/dL (0.7-1.2) H 04/08/22 03:19 GFR Calculation 36.2 mL/min (90-130) L 04/08/22 03:19 Glucose 99 mg/dL (65-115) 04/08/22 03:19 POC Glucose 172 mg/dL (70-110) H 04/08/22 11:08 Calculated Osmolality 299 mOsm/kg (285-295) H 04/08/22 03:19 Lactic Acid 1.1 mmol/L (0.5-2.2) 04/06/22 09:12 Calcium 9.1 mg/dL (8.5-10.5) 04/08/22 03:19 Magnesium 2.5 mg/dL (1.7-2.3) H 04/07/22 03:52 Iron 11 ug/dL (59-158) L 04/06/22 09:12 TIBC 298 mcg/dl 04/06/22 09:12 % Saturation 3.6 % (20-50) L 04/06/22 09:12 Unsat Iron Binding 287 ug/dL (112-347) 04/06/22 09:12 Ferritin 155 ng/mL (30-400) 04/06/22 09:12 Total Bilirubin 0.4 mg/dL (0.15-1.2) 04/06/22 09:12 AST 14 U/L (0-40) 04/06/22 09:12 ALT 10 U/L (0-41) 04/06/22 09:12 Alkaline Phosphatase 81 U/L (40-130) 04/06/22 09:12 Troponin T Baseline 36 ng/L (0-15) H 04/06/22 09:12 Troponin T 120 Minute 35.55 ng/L (0-15) H 04/06/22 11:28 Delta Troponin T -0.45 ABS# (0-10) L 04/06/22 11:28 Troponin T Hi Sens 6Hr 36.95 ng/L (0-15) H 04/06/22 15:28 Troponin T Hi Sens 6Hr Delta 0.95 ng/L (0-12) 04/06/22 15:28 NT-Pro-B Natriuret Pep 2725 pg/mL (0-125) H 04/06/22 09:12 Total Protein 7.8 g/dL (6.6-8.7) 04/06/22 09:12 Albumin 4.0 g/dL (3.5-5.2) 04/06/22 09:12 Globulin 3.8 g/dL (1.3-4.6) 04/06/22 09:12 Procalcitonin 0.47 ng/mL (0-0.5) 01/05/23 09:12 Coronavirus 229E (PCR) Not detected (NOT DETECT) 04/06/22 09:52 Influenza Type A Ag negative (Negative) 04/06/22 09:52 Influenza Type B Ag negative (Negative) 04/06/22 09:52 SARS-CoV-2 (PCR) Not detected (NOT DETECT) 04/06/22 09:52 SARS-CoV-2 Ag (Rapid) Cancelled 04/06/22 09:52 Vitals Last Vital Signs Temp 98.4 F 04/08/22 07:17 Pulse 85 04/08/22 07:38 Resp 18 04/08/22 07:38 BP 159/73 04/08/22 07:17 Pulse Ox 95 04/08/22 07:38 O2 Del Method 04/08/22 07:38 O2 Flow Rate 8 04/08/22 07:38 FiO2 65 04/08/22 04:12 Discharge Plan Discharge Patient Disposition: Home Condition: Stable Prescriptions: New ferrous sulfate 325 mg (65 mg iron) tablet,delayed release (DR/EC) 325 mg PO BID Qty: 60 1RF ascorbic acid (vitamin C) 500 mg tablet 500 mg PO DAILY Qty: 30 0RF Protonix 40 mg tablet,delayed release (DR/EC) 40 mg PO DAILY Qty: 30 3RF Continued ipratropium-albuterol 0.5 mg-3 mg(2.5 mg base)/3 mL solution for nebulization 3 ml INHALATION QID PRN (Reason: Shortness Of Breath) (DME) Socialinus Jeremy 2 Sensor Kit See Rx Instructions .Route Qty: 1 0RF Rx Instructions: As directed (DME) FreeStyle Jeremy 2 Kenner Misc See Rx Instructions .Route Qty: 1 0RF Rx Instructions: As directed venlafaxine [Effexor XR] 150 mg capsule,extended release 24hr 150 mg PO QAM Qty: 30 2RF Anoro Ellipta 62.5-25 mcg/actuation blister with device 1 inh inhalation Q24H Qty: 60 2RF rosuvastatin 20 mg tablet 20 mg PO DAILY Qty: 30 2RF montelukast [Singulair] 10 mg tablet 10 mg PO DAILY Qty: 30 2RF Victoza 3-Leonides 0.6 mg/0.1 mL (18 mg/3 mL) pen injector 1.8 mg SUBCUT Q24H Qty: 9 2RF Tresiba FlexTouch U-100 100 unit/mL (3 mL) insulin pen 60 unit SUBCUT BID Qty: 50 2RF cetirizine 10 mg tablet 10 mg PO DAILY Qty: 30 2RF buspirone 15 mg tablet 15 mg PO BID Qty: 60 2RF amiodarone 200 mg tablet 200 mg PO DAILY Qty: 90 1RF Rx Instructions: TAKE ONE TABLET BY MOUTH DAILY Xarelto 20 mg tablet 20 mg PO DAILY Qty: 90 1RF Rx Instructions: must administer with a meal/food amlodipine 10 mg tablet 10 mg PO DAILY Qty: 90 3RF Rx Instructions: Must be seen for further refills colesevelam [WelChol] 625 mg tablet 1,875 mg PO BID Qty: 540 3RF hydralazine 100 mg tablet 100 mg PO TID Qty: 270 3RF (DME) pen needle, diabetic [TechLITE Pen Needle] 31 gauge x 5/16 needle See Rx Instructions .ROUTE .MEDSUPPLY Qty: 100 5RF Rx Instructions: Three times a day levothyroxine 175 mcg tablet 175 mcg PO DAILY Qty: 30 2RF Rx Instructions: dose increase fenofibrate nanocrystallized 145 mg tablet 145 mg PO BEDTIME Held Entresto 49-51 mg tablet 1 tab PO BID Qty: 60 2RF Hold Instructions: Resume on 04/15/22. metformin 500 mg tablet extended release 24 hr 1,000 mg PO BID Qty: 120 2RF Hold Instructions: Resume on 04/11/22. furosemide [Lasix] 40 mg tablet 40 mg PO BID Qty: 60 2RF Hold Instructions: Resume on 04/15/22. potassium chloride 20 mEq tablet extended release 20 meq PO BID Qty: 180 3RF Hold Instructions: Resume on 04/15/22. Discharge Orders: Discharge Order (Routine); Ordered 04/08/22 Ordered By: Davis Rai Other Ambulatory Orders: Basic Metabolic Panel (Routine) Timeframe: 20220413 Facility: [facility] - Location: Lab - Main Lab Ordered By: Davis Rai Complete Blood Count w/Auto (Routine) Timeframe: 20220413 Location: Determined by Patient Ordered By: Davis Rai Referrals: Jreemiah Griffin, CONTRACT PROJECT MANAGER-C [Primary Care Provider] - 1 week ([facility] in [place] will call you to make an appointment with Jeremiah Griffin with-in one week. If you do not hear from them please call [phone].) Patient Instructions: Anemia, Iron Supplements (By mouth), Ascorbic Acid (By mouth) (Ascocid, C-500, C-Time w/Flower Hips, Vitamin C250), Congestive Heart Failure, Chronic Kidney Disease (DC), Meal Planning with Diabetes Exchanges (DC), Chronic Respiratory Failure (DC) Discharge Attestations Time Spent in Discharge Care*: greater than 30 min Quality Metrics Clinical Quality Measures [ No reported AMI, CVA or VTE this stay] Coding Level of Care Code Acute Chg FW DC note Exam Detailed Diagnoses Acute respiratory failure with hypercapnia J96.02 Acute diastolic heart failure I50.31 Leukocytosis D72.829 Anemia D64.9
[2022-04-08] MEDS: iron sucrose 200 MG in sodium chloride 0.9% (100 ml) 100 ML 220 MG IV (12:12)
[2022-04-08] MEDS: insulin lispro 100 unit/1 mL SUBCUT (12:12)
--- NOTE | 2022-04-08 13:30 | PC.NURSE ---
vinson out dr veras to remove vinson catheter. brief provided to pt due to incontinence. vinson cath intact. emptied 1750 cc from vinson bag.
--- NOTE | 2022-04-08 14:25 | PC.NURSE ---
Discharge Note Patient discharged to home via home accompanied by . Discharge instructions reviewed with patient and/or apprenticeship representative. Mobile pharmacy medications and/or prescriptions provided. Informed pt and the new meds dosing, timing and freq, hold meds as well and continued meds. Belongings/home medications returned.
--- NOTE | 2022-04-08 14:33 | PC.NURSE ---
called pt's informed pt's that order a protonix 40 mg daily and med sent to [facility].
== END 2022-04-08 14:34 | disposition home or self-care (01) | DRG 291 ==
LOC: ER 09:28 → CSU 12:16
PROVIDERS: Admitting Provider Internal Medicine; Emergency Provider Family Medicine; PCP Nurse Practitioner; Visit Provider Internal Medicine
DX: I13.0 Hypertensive heart and chronic kidney disease with heart failure and stage 1 through stage 4 chronic kidney disease, or unspecified chronic kidney disease (principal); I50.33 Acute on chronic diastolic (congestive) heart failure; J96.02 Acute respiratory failure with hypercapnia; J96.01 Acute respiratory failure with hypoxia; N17.9 Acute kidney failure, unspecified; I48.20 Chronic atrial fibrillation, unspecified; E66.2 Morbid (severe) obesity with alveolar hypoventilation; Z68.43 Body mass index [BMI] 50.0-59.9, adult; N18.9 Chronic kidney disease, unspecified; E11.22 Type 2 diabetes mellitus with diabetic chronic kidney disease; D50.9 Iron deficiency anemia, unspecified; D63.1 Anemia in chronic kidney disease; Z79.4 Long term (current) use of insulin; Z79.01 Long term (current) use of anticoagulants; K21.9 Gastro-esophageal reflux disease without esophagitis; E78.5 Hyperlipidemia, unspecified; E03.9 Hypothyroidism, unspecified; Z86.14 Personal history of Methicillin resistant Staphylococcus aureus infection; Z87.01 Personal history of pneumonia (recurrent); F17.210 Nicotine dependence, cigarettes, uncomplicated
CPT/HCPCS: 36415; 36416; 36600; 71045; 80048; 80051; 80053; 82274; 82330; 82728; 82805; 82962; 83540; 83550; 83605; 83735; 83880; 84145; 84484; 85025; 87040; 87635; 87804; 93005; 93306; 94640; 94660; 94760; 96372; 96374; 99285; J1756; J1815; J1940; J2405; J7626

== ENCOUNTER → 2022-04-13 09:45 | Outpatient (BNVA) | payer MEDICARE, SELFPAY | PROVIDERS: PCP Nurse Practitioner; Referring Provider Internal Medicine; Visit Provider Internal Medicine | DX: D64.9 Anemia, unspecified (principal) | CPT/HCPCS: 85025 ==

== ENCOUNTER → 2022-04-18 09:10 | Outpatient (BNVA) | payer MEDICARE, SELFPAY | PROVIDERS: PCP Nurse Practitioner; Visit Provider Nurse Practitioner | DX: I50.32 Chronic diastolic (congestive) heart failure (principal); N17.9 Acute kidney failure, unspecified; N18.9 Chronic kidney disease, unspecified; J96.10 Chronic respiratory failure, unspecified whether with hypoxia or hypercapnia | CPT/HCPCS: 80048; 83880 ==

== ENCOUNTER 2022-04-23 18:29 | Inpatient (IN) | payer MEDICARE, SELFPAY ==
[2022-04-23] VITALS (11 sets, daily range): BP systolic 100–157; BP diastolic 61–75; PULSE 81–95; RESP 14–31; TEMP 36.6; O2SAT 85–99
--- NOTE | 2022-04-23 18:54 | XRR_ITS ---
PROCEDURE INFORMATION: Exam: XR Chest Exam date and time: 04/23/2022 7:01 PM Age: 61 years old Clinical indication: Shortness of breath; Additional info: SOB TECHNIQUE: Imaging protocol: Radiologic exam of the chest. Views: 1 view. COMPARISON: CR XR chest 1V portable [id number] 04/06/2022 9:08 AM FINDINGS: Lungs: Pulmonary vascular congestion. Mild interstitial thickening suspected to represent congestion or edema. Pleural spaces: No pneumothorax. Suspicion of pleural fluid on the right. Heart/Mediastinum: Stable prominence of cardiac silhouette. Bones/joints: No acute findings. XR/XR chest 1V portable [id number] IMPRESSION: Findings suspicious for congestive heart failure
--- NOTE | 2022-04-23 18:56 | ECG_ITS ---
[facility] Test Date: 2022-04-23 Pat Name: Julius Dunlap Department: Room: Gender: Male Unit Supervisor: : 1960 Requested By: Jd Bonilla Order Number: [id number] Ana Lilia MD: Douglas Tee M.D. Measurements Intervals [place] Rate: 87 P: 0 VT: 0 QRS: 91 QRSD: 112 T: 147 QT: 404 QTc: 487 Interpretive Statements ATRIAL FIBRILLATION BORDERLINE RIGHT AXIS DEVIATION [QRS AXIS > 90] LOW QRS VOLTAGE IN PRECORDIAL LEADS [QRS DEFLECTION < 1.0 mV IN CHEST LEADS] MODERATE INTRAVENTRICULAR CONDUCTION DELAY [110+ ms QRS DURATION] NONSPECIFIC T-WAVE ABNORMALITY Compared to ECG 04/06/2022 15:05:41 Low QRS voltage now present Intraventricular conduction delay now present Incomplete right bundle-branch block no longer present T-wave abnormality still present Electronically Signed On 04-25-2022 7:43:51 PENSIONS RETIREMENT PLAN SPECIALIST by Douglas Tee M.D. [id number]
[2022-04-23 19:09] LABS: Basophils # 0.1 10^3/uL (0.0-0.1); Basophils % 0.6 %; Eosinophils # 0.3 10^3/uL (0.0-0.8); Eosinophils % 1.8 %; Hematocrit 31.5 % (42.0-52.0); Hemoglobin 9.2 g/dL (11.7-16.6); Lymphocytes # 3.2 10^3/uL (0.8-4.8); Lymphocytes % 20.6 %; Mean Corpuscular HGB Conc 29.2 g/dL (30.0-36.0); Mean Corpuscular Hemoglobin 28.6 pg (28.0-34.0); Mean Corpuscular Volume 97.8 fl (80-94); Monocytes # 1.5 10^3/uL (0.2-0.9); Monocytes % 9.5 %; Neutrophils # 10.33 10^3/uL (1.8-7.7); Neutrophils % 67.1 %; Nucleated Red Blood Cells % 0 %; Platelet Count 450 10^3/cmm (130-400); Red Blood Count 3.22 10^6/uL (4.1-5.3); Red Cell Distribution Width 15.7 % (12.1-15.1); White Blood Count 15.4 10^3/uL (4.0-10.0)
[2022-04-23 19:23] LABS: INR 2.22 (0.8-1.2)
[2022-04-23 19:30] LABS: Lactic Sepsis W/Reflex 1.5 mmol/L (0.5-2.2)
[2022-04-23 19:35] LABS: Troponin(5th) Baseline 43 ng/L (0-15)
[2022-04-23 19:40] LABS: Influenza A by IFA negative (Negative); Influenza B by IFA negative (Negative); SARS Covid-2 Antigen negative (Negative)
[2022-04-23] MEDS: ipratropium-albuterol 3 mL Neb INHALATION (19:40)
[2022-04-23 19:42] LABS: Alanine Aminotransferase 10 U/L (0-41); Albumin Level 3.5 g/dL (3.5-5.2); Alkaline Phosphatase 66 U/L (40-130); Anion Gap 16.4 (5-19); Aspartate Amino Transferase 18 U/L (0-40); Blood Urea Nitrogen 32 mg/dL (8-23); Calcium 8.9 mg/dL (8.5-10.5); Carbon Dioxide 23 mmol/L (22-29); Chloride 105 mmol/L (98-107); Globulin 4.2 g/dL (1.3-4.6); Glomerular Filtration Rate 29.1 mL/min (90-130); Glucose 88 mg/dL (65-115); NT Pro B Type Natriuretic Pept 818 pg/mL (0-125); Osmolality Calculated 294 mOsm/kg (285-295); Potassium 5.4 mmol/L (3.5-5.1); Sodium 139 mmol/L (136-145); Total Bilirubin 0.2 mg/dL (0.15-1.2); Total Protein 7.7 g/dL (6.6-8.7)
[2022-04-23 19:55] LABS: ABG PCO2 45.2 mmHg (35-45); ABG PH Result 7.33 (7.35-7.45); Base Excess ABG -2.2 mmol/L (-2.0-2.0); Blood Gas Allen Test Pos; Blood Gas Sample Site Radial, right; Blood Gas Sample Type Arterial; Carboxyhemoglobin 1.2 %THgb (0.4-20.1); HCO3 ABG 23.8 mmol/L (22-26); HGB O2 Sat 96.9 % (95-100); Methemoglobin 0.5 % (0.4-1.5); Oxygen Device BIPAP; Total Hemoglobin 9.1 g/dL (14-18)
[2022-04-23] MEDS: FUROsemide 10 mg/mL SDV 10mL 80 MG IVP (19:58)
--- NOTE | 2022-04-23 20:22 | W.ED.SOB ---
HPI - SOB/Dyspnea General: Chief Complaint: ER Hold Stated Complaint: SOB Time Seen by Provider: 04/23/22 18:44 Source: patient History of Present Illness: HPI Narrative: 61-year-old male with a history of chronic respiratory failure, sleep apnea, atrial fibrillation, chronic kidney disease, diastolic heart failure. He presents with increasing shortness of breath over the last 2 days. He is usually on oxygen at home, he has had his oxygen at 7 to 8 L by nasal cannula for the past couple of days without improvement in his shortness of breath. He presents here with his oxygen turned up to 15 L on nasal cannula and oxygen saturation of 83%. Chronic swelling to the bilateral lower extremities. He denies chest pain. He says that he cannot lay back due to shortness of breath. He is awake and talking. MD elicited complaint: shortness of breath Pertinent past history: congestive heart failure Onset (ago): day(s) Context: recent illness Timing: progressively worsening Severity: severe Exacerbating factors: lying flat and exertion Relieving factors: oxygen Known history of: congestive heart failure Associated symptoms: Reports dizziness, nausea and orthopnea; Deny abdominal pain, chest congestion, chest pain, cough, fever(s), syncope or vomiting Treatment prior to arrival: oxygen Review of Systems Const: Denies: fever(s) ENMT: Denies: throat pain Card: Reports: orthopnea; Denies: chest pain or syncope Resp: Reports: dyspnea and non-productive cough; Denies: chest congestion GI: Reports: nausea; Denies: abdominal pain or vomiting Neuro: Reports: dizziness [facility] ED PFSH: Medical History Acquired lymphedema Acute diastolic heart failure Acute exacerbation of chronic obstructive airways disease Acute respiratory failure with hypercapnia Afib Allergic rhinitis due to pollen Anemia Anxiety Chronic atrial fibrillation with rapid ventricular response Chronic diastolic (congestive) heart failure Chronic kidney disease Chronic respiratory failure Congestive heart failure Diabetes mellitus with hyperglycemia, with long-term current use of insulin Essential (primary) hypertension GERD (gastroesophageal reflux disease) Hyperlipemia Hypothyroidism Hypoxia, sleep related Leukocytosis Morbid obesity with BMI of 50.0-59.9, adult MRSA infection Obesity hypoventilation syndrome EDGAR (obstructive sleep apnea) Pneumonia, unspecified organism Surgical History H/O esophagogastroduodenoscopy (02/18/21) History of bilateral cataract extraction 2019 and 2020 History of colonoscopy (02/18/21) History of gangrene Left buttocks requiring surgery May 2014 Family History Father Cancer Mother Heart disease CAD (coronary artery disease) Diabetes Heart attack Stroke Brother Heart attack Clotting disorder Stroke Sister Stroke Denies family history of Dementia Chronic kidney disease (CKD) Suicide Anesthesia complication Bleeding disorder Lung disease Social History Smoking and tobacco status: current every day smoker cigarettes Packs smoked per day: 1 Years cigarettes smoked: 50 [ Other cigarette details: Started at age 10] Second hand smoke exposure: Yes Smoking risk assessment/counseling performed?: Yes Alcohol intake: former Year of sobriety/quit date alcohol: 1991 Desire information about alcohol rehabilitation?: No Counseling given: No Desire information about substance/drug rehabilitation?: No Counseling given: No Adopted: No Caregiver/support person: No Lives independently: Yes Household members: spouse Housing: House Marital status: service: No Current occupational status: disabled Pets and animals: Yes History of recent travel: No Current gender identity: Male Physical Exam Const: GENERAL APPEARANCE: in distress and ill appearing NUTRITIONAL APPEARANCE: obese ORIENTATION/CONSCIOUSNESS: Yes awake, Yes oriented to person, Yes oriented to place and Yes oriented to time HENMT: COMMON NORMALS: normocephalic and atraumatic HEAD & SCALP: normocephalic and atraumatic FACE & SINUS: normal facial exam Eye: COMMON NORMALS: Equal, round and reactive pupils present and EOMs intact bilaterally PUPIL: Yes Equal, round and reactive pupils present Neck/C-Spine: GENERAL: Yes trachea midline Chest: CHEST: Yes Symmetrical chest wall rise Resp: EFFORT & INSPECTION: Yes tachypneic, Yes respiratory distress and Yes uses accessory muscles AUSCULTATION: diminished lung sounds Cardio: COMMON NORMALS: regular rate RATE: regular rate RHYTHM: abnormal rhythm irregularly irregular GI: INSPECTION: Yes abdominal distension OTHER: Rotund Extremity: GENERAL: Yes edema Neuro: SENSORIUM/ORIENTATION: Yes oriented to person, Yes oriented to place and Yes oriented to time Skin: NARRATIVE SKIN EXAM: Chronic stasis dermatitis bilateral lower extremities Course Vital Signs: Vital signs: Vital Signs Temperature 98.4 F 04/24/22 22:05 Pulse Rate 88 04/25/22 11:18 Respiratory Rate 22 H 04/25/22 11:00 Blood Pressure 137/79 04/25/22 07:00 Pulse Oximetry 91 04/25/22 11:18 Oxygen Delivery Me thod 04/25/22 11:00 Oxygen Flow Rate 15 04/24/22 05:46 Fraction of Inspir ed Oxygen 65 04/25/22 11:18 MDM - SOB/Dyspnea Medical Decision Making White blood cell count is 15.4, hemoglobin 9. Potassium 5.4 creatinine 2.3. Chest x-ray reveals pulmonary edema. Swabs for flu and COVID are negative. His INR is 2.22. He was placed immediately on BiPAP on arrival. Improvement in oxygen saturation obtained. Currently 96%. Heart rate is 80. EKG shows atrial fibrillation with no significant ST wave changes. Troponin is 43 with a BNP of 818. He will be admitted for acute hypoxic respiratory failure with pulmonary edema. Lab Data 04/23/22 18:50 04/23/22 18:50 Labs/Radiology: Radiology Impressions Chest X-Ray 04/23/22 18:54 IMPRESSION: Findings suspicious for congestive heart failure Chest CT 04/24/22 07:52 IMPRESSION: 1. Shallow inspiration. Volume loss in the lower lobes. 2. Small bilateral pleural effusions with compressive atelectasis in the bilateral lower lobes with air bronchograms may be due to CHF 3. Cardiomegaly with moderate pericardial effusion. 4. Hepatomegaly. 5. Small amount of ascites about the liver and spleen. Laboratory Results WBC 15.4 10^3/uL (4.0-10.0) H 04/23/22 18:50 RBC 3.22 10^6/uL (4.1-5.3) L 04/23/22 18:50 Hgb 9.2 g/dL (11.7-16.6) L 04/23/22 18:50 Hct 31.5 % (42.0-52.0) L 04/23/22 18:50 MCV 97.8 fl (80-94) H 04/23/22 18:50 MCH 28.6 pg (28.0-34.0) 04/23/22 18:50 MCHC 29.2 g/dL (30.0-36.0) L 04/23/22 18:50 RDW 15.7 % (12.1-15.1) H 04/23/22 18:50 Plt Count 450 10^3/cmm (130-400) H 04/23/22 18:50 MPV 10.0 fL (7.4-10.4) 04/23/22 18:50 Neut % (Auto) 67.1 % 04/23/22 18:50 Lymph % (Auto) 20.6 % 04/23/22 18:50 Lares % (Auto) 9.5 % 04/23/22 18:50 Eos % (Auto) 1.8 % 04/23/22 18:50 Baso % (Auto) 0.6 % 04/23/22 18:50 Neut # (Auto) 10.33 10^3/uL (1.8-7.7) H 04/23/22 18:50 Lymph # (Auto) 3.2 10^3/uL (0.8-4.8) 04/23/22 18:50 Lares # (Auto) 1.5 10^3/uL (0.2-0.9) H 04/23/22 18:50 Eos # (Auto) 0.3 10^3/uL (0.0-0.8) 04/23/22 18:50 Baso # (Auto) 0.1 10^3/uL (0.0-0.1) 04/23/22 18:50 Nucleated RBC % (auto) 0 % 04/23/22 18:50 Nucleated RBCs # 0.0 /100WBC 04/23/22 18:50 PT 25.00 SECONDS (12.1-14.9) H 04/23/22 18:50 INR 2.22 (0.8-1.2) H 04/23/22 18:50 Specimen Type Arterial 04/23/22 18:53 Sample Site Radial, right 04/23/22 18:53 ABG pH 7.33 (7.35-7.45) L 04/23/22 18:53 ABG pCO2 45.2 mmHg (35-45) H 04/23/22 18:53 ABG pO2 109.0 mmHg (80.0-100.0) H 04/23/22 18:53 ABG HCO3 23.8 mmol/L (22-26) 04/23/22 18:53 ABG Base Excess -2.2 mmol/L (-2.0-2.0) L 04/23/22 18:53 Avila Test Pos 04/23/22 18:53 Hematocrit 28.0 % (42-52) L 04/23/22 18:53 Hgb O2 Saturation 96.9 % (95-100) 04/23/22 18:53 Carboxyhemoglobin 1.2 %THgb (0.4-20.1) 04/23/22 18:53 Methemoglobin 0.5 % (0.4-1.5) 04/23/22 18:53 Total Hemoglobin 9.1 g/dL (14-18) L 04/23/22 18:53 O2 Delivery Device Bipap 04/23/22 18:53 FiO2 100.0 % 04/23/22 18:53 Planning Technician ID [email or web address] 04/23/22 18:53 Sodium 139 mmol/L (136-145) 04/23/22 18:50 Potassium 5.4 mmol/L (3.5-5.1) H 04/23/22 18:50 Chloride 105 mmol/L (98-107) 04/23/22 18:50 Carbon Dioxide 23 mmol/L (22-29) 04/23/22 18:50 Anion Gap 16.4 (5-19) 04/23/22 18:50 BUN 32 mg/dL (8-23) H 04/23/22 18:50 Creatinine 2.3 mg/dL (0.7-1.2) H 04/23/22 18:50 GFR Calculation 29.1 mL/min (90-130) L 04/23/22 18:50 Glucose 88 mg/dL (65-115) 04/23/22 18:50 POC Glucose 90 mg/dL (70-110) 04/23/22 20:58 Calculated Osmolality 294 mOsm/kg (285-295) 04/23/22 18:50 Lactic Acid 1.5 mmol/L (0.5-2.2) 04/23/22 18:50 Calcium 8.9 mg/dL (8.5-10.5) 04/23/22 18:50 Total Bilirubin 0.2 mg/dL (0.15-1.2) 04/23/22 18:50 AST 18 U/L (0-40) 04/23/22 18:50 ALT 10 U/L (0-41) 04/23/22 18:50 Alkaline Phosphatase 66 U/L (40-130) 04/23/22 18:50 Troponin T Baseline 43 ng/L (0-15) H 04/23/22 18:50 Troponin T 120 Minute 47.14 ng/L (0-15) H 04/23/22 20:45 Delta Troponin T 4.14 ABS# (0-10) 04/23/22 20:45 C-Reactive Protein 56.1 mg/L (0.0-4.9) H 04/23/22 20:45 NT-Pro-B Natriuret Pep 818 pg/mL (0-125) H 04/23/22 18:50 Total Protein 7.7 g/dL (6.6-8.7) 04/23/22 18:50 Albumin 3.5 g/dL (3.5-5.2) 04/23/22 18:50 Globulin 4.2 g/dL (1.3-4.6) 04/23/22 18:50 Procalcitonin 0.35 ng/mL (0-0.5) 04/23/22 20:45 Influenza Type A Ag negative (Negative) 04/23/22 19:10 Influenza Type B Ag negative (Negative) 04/23/22 19:10 SARS-CoV-2 Ag (Rapid) negative (Negative) 04/23/22 19:10 Discharge Plan Discharge Patient Disposition: Admitted As Inpatient Admit Provider: Dave Doty Clinical Impression: Respiratory failure, Pulmonary edema Condition: Stable Coding Level of Care Code ED Press Supervisor for Chg Fwd Exam Comprehensive
--- NOTE | 2022-04-23 20:56 | ECG_ITS ---
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 Measurements Intervals [place] Rate: 87 P: 0 [place]: 0 QRS: 83 QRSD: 121 T: 222 QT: 394 QTc: 475 Interpretive Statements ATRIAL FIBRILLATION MODERATE INTRAVENTRICULAR CONDUCTION DELAY [110+ ms QRS DURATION] NONSPECIFIC T-WAVE ABNORMALITY Compared to ECG 04/23/2022 19:24:00 No significant changes Electronically Signed On 04-25-2022 7:49:47 MANAGER [employer]AMP by Douglas Tee M.D. [email or web address]
[2022-04-23 21:01] LABS: Glucose Point of Care 90 mg/dL (70-110)
[2022-04-23 21:40] LABS: Troponin 5 2HR 47.14 ng/L (0-15)
[2022-04-23 21:41] LABS: Troponin 5 2HR Delta 4.14 ABS# (0-10)
--- NOTE | 2022-04-23 22:00 | PM.HP ---
Providers/Chief Complaint Primary Care Provider: Jeremiah Griffin, ICE CARVER-C Chief Complaint: SOB History of Present Illness Guevara Dunlap is a 61 year old male with a past medical history of smoking, history of small airway disease, history of obesity hypoventilation syndrome, history of chronic respiratory failure, on home trilogy machine, CHF, chronically on 5 to 6 L, insulin-dependent type 2 diabetes mellitus, morbid obesity, GERD, hyperlipidemia and hypothyroidism, EDGAR, CKD, who recently was hospitalization for diastolic CHF exacerbation received diuresis. On discharge his diuresis was held Entresto was held, he was also advised to hold Xarelto for 4 days and, since then he is resumed it. He also had iron deficiency anemia, Hemoccult positive stool during his hospitalization. He presents [facility] as getting out of the hospital, he continued to have shortness of breath, at rest with exertion, lower extremity edema, fatigue, malaise. He tells me that he had increase his oxygen from 5 L to 8 L. At recently had increase it to 15 L. He is become increasingly short of breath, no nausea, no vomiting, no chest pain, no palpitations. No fevers, no chills, no cough. In the emergency room he was found to have respiratory distress, was placed on BiPAP currently currently on 20/10 100% FiO2 resting comfortably, no nasal flaring no intercostal retractions, no tachypnea currently resting comfortably, at bedside. He tells me he is taking the Xarelto. He has not taken his Lasix or his Entresto. Denies any bloody or black stools Review of Systems Const: Denies: fever(s), chills, fatigue or malaise Eyes: Denies: change in vision ENMT: Denies: nasal congestion Card: Reports: edema and swelling of feet/ankles; Denies: chest pain or palpitations Resp: Denies: productive cough or non-productive cough GI: Denies: abdominal pain, nausea, vomiting, hematochezia or melena : Denies: flank pain, difficulty urinating, dysuria or urinary frequency Musc: Denies: neck pain or back pain Neuro: Denies: headache(s), dizziness or vertigo Psych: Denies: anxiety Endo: Denies: polyuria or polydipsia Medications/Allergies Home Medications Medication Instructions Recorded Confirmed Last Taken Type ipratropium 0.5 mg-albuterol 3 mg 3 ml inhalation QID PRN Shortness 04/11/19 04/17/22 02/17/21 History (2.5 mg base)/3 mL nebulization Of Breath soln amiodarone 200 mg tablet 200 mg PO DAILY #90 tabs 11/04/21 04/17/22 04/06/22 Rx rivaroxaban 20 mg tablet (Xarelto) 20 mg PO DAILY #90 tabs 11/04/21 04/17/22 04/06/22 Rx flash glucose scanning reader #1 ea 11/17/21 04/17/22 Unknown Rx (FreeStyle Jeremy 2 Hobbs) flash glucose sensor (FreeStyle #1 ea 11/17/21 04/17/22 Unknown Rx Jeremy 2 Sensor kit) amlodipine 10 mg tablet 10 mg PO DAILY #90 tabs 01/03/22 04/17/22 04/06/22 Rx colesevelam 625 mg tablet (WelChol) 1,875 mg PO BID #540 tabs 01/03/22 04/17/22 04/06/22 Rx hydralazine 100 mg tablet 100 mg PO TID #270 tabs 01/03/22 04/17/22 04/06/22 Rx potassium chloride 20 mEq 20 meq PO BID #180 tabs 01/03/22 04/17/22 04/06/22 Rx tablet,extended release pen needle, diabetic 31 gauge x #100 ea 01/27/22 04/17/22 Unknown Rx 5/16 (TechLITE Pen Needle) buspirone 15 mg tablet 15 mg PO BID #60 tabs 02/17/22 04/17/22 04/06/22 Rx cetirizine 10 mg tablet 10 mg PO DAILY #30 tabs 02/17/22 04/17/22 04/06/22 Rx furosemide 40 mg tablet (Lasix) 40 mg PO BID edema #60 tabs 02/17/22 04/17/22 04/06/22 Rx insulin degludec 100 unit/mL (3 60 unit (0.6 mL) SUBCUT BID #50 mL 02/17/22 04/17/22 04/06/22 Rx mL) subcutaneous pen (Tresiba FlexTouch U-100 insulin) liraglutide 0.6 mg/0.1 mL (18 mg/3 1.8 mg (0.3 mL) SUBCUT Q24H #9 mL 02/17/22 04/17/22 04/06/22 Rx mL) subcutaneous pen injector (Victoza 3-Leonides) metformin 500 mg tablet,extended 1,000 mg PO BID #120 tabs 02/17/22 04/17/22 04/06/22 Rx release 24 hr montelukast 10 mg tablet 10 mg PO DAILY #30 tabs 02/17/22 04/17/22 04/06/22 Rx (Singulair) rosuvastatin 20 mg tablet 20 mg PO DAILY #30 tabs 02/17/22 04/17/22 04/06/22 Rx sacubitril 49 mg-valsartan 51 mg 1 tab PO BID #60 tabs 02/17/22 04/17/22 04/06/22 Rx tablet (Entresto) umeclidinium 62.5 mcg-vilanterol 1 inh inhalation Q24H #60 ea 02/17/22 04/17/22 04/05/22 Rx 25 mcg/actuation powdr for inhalation (Anoro Ellipta) venlafaxine 150 mg 150 mg PO QAM #30 caps 02/17/22 04/17/22 04/06/22 Rx capsule,extended release 24 hr (Effexor XR) levothyroxine 175 mcg tablet 175 mcg PO DAILY #30 tabs 02/21/22 04/17/22 04/06/22 Rx fenofibrate nanocrystallized 145 145 mg PO BEDTIME 04/06/22 04/17/22 04/05/22 History mg tablet ascorbic acid (vitamin C) 500 mg 500 mg PO DAILY #30 tabs 04/08/22 04/17/22 Unknown Rx tablet ferrous sulfate 325 mg (65 mg 325 mg PO BID #60 tabs 04/08/22 04/17/22 Unknown Rx iron) tablet,delayed release pantoprazole 40 mg tablet,delayed 40 mg PO DAILY #30 tabs 04/08/22 04/17/22 Unknown Rx release (Protonix) Allergies Allergy/AdvReac Type Severity Reaction Status Date / Time No Known Allergies Allergy Verified 04/21/22 21:52 PFSH Acute PFSH: Medical History Acquired lymphedema Acute diastolic heart failure Acute exacerbation of chronic obstructive airways disease Acute respiratory failure with hypercapnia Afib Allergic rhinitis due to pollen Anemia Anxiety Chronic atrial fibrillation with rapid ventricular response Chronic diastolic (congestive) heart failure Chronic kidney disease Chronic respiratory failure Congestive heart failure Diabetes mellitus with hyperglycemia, with long-term current use of insulin Essential (primary) hypertension GERD (gastroesophageal reflux disease) Hyperlipemia Hypothyroidism Hypoxia, sleep related Leukocytosis Morbid obesity with BMI of 50.0-59.9, adult MRSA infection Obesity hypoventilation syndrome EDGAR (obstructive sleep apnea) Pneumonia, unspecified organism Surgical History H/O esophagogastroduodenoscopy (02/18/21) History of bilateral cataract extraction 2019 and 2020 History of colonoscopy (02/18/21) History of gangrene Left buttocks requiring surgery May 2014 Family History Father Cancer Mother Heart disease CAD (coronary artery disease) Diabetes Heart attack Stroke Brother Heart attack Clotting disorder Stroke Sister Stroke Denies family history of Dementia Chronic kidney disease (CKD) Suicide Anesthesia complication Bleeding disorder Lung disease Social History Smoking and tobacco status: current every day smoker cigarettes Packs smoked per day: 1 Years cigarettes smoked: 50 [ Other cigarette details: Started at age 10] Second hand smoke exposure: Yes Smoking risk assessment/counseling performed?: Yes Alcohol intake: former Year of sobriety/quit date alcohol: 1991 Desire information about alcohol rehabilitation?: No Counseling given: No Desire information about substance/drug rehabilitation?: No Counseling given: No Adopted: No Caregiver/support person: No Lives independently: Yes Household members: spouse Housing: House Marital status: service: No Current occupational status: disabled Pets and animals: Yes History of recent travel: No Current gender identity: Male Vitals/I&O/Wt Last Vital Signs Temp 97.8 F 04/23/22 18:37 Pulse 85 04/23/22 21:30 Resp 21 H 04/23/22 21:30 BP 100/63 04/23/22 21:30 Pulse Ox 96 04/23/22 21:30 O2 Del Method 04/23/22 21:00 O2 Flow Rate 15 04/23/22 18:37 FiO2 100 04/23/22 19:40 Weight last 48 hrs Weight 186.88 kg Physical Exam Const: COMMON NORMALS: no acute distress and patient oriented x3 HENMT: COMMON NORMALS: normocephalic HEAD & SCALP: normocephalic Eye: COMMON NORMALS: Equal, round and reactive pupils present and EOMs intact bilaterally Neck/C-Spine: COMMON NORMALS: full ROM, no lymphadenopathy and no JVD Lymph: LYMPHATIC: no lymphadenopathy noted Chest: COMMONS NORMALS: normal inspection of the chest Resp: COMMON NORMALS: normal respiratory effort, No retractions and No use of accessory muscles AUSCULTATION: diminished lung sounds diffuse OTHER: Scattered wheezing Cardio: COMMON NORMALS: no JVD, regular rate, regular rhythm, S1 normal heart sound present and S2 normal heart sound present RATE: regular rate RHYTHM: regular rhythm HEART SOUNDS: S1 normal heart sound present and S2 normal heart sound present GI: COMMON NORMALS: Normal to inspection, nondistended, normoactive bowel sounds present, Soft to palpation and non-tender OTHER: Obese abdomen : COMMON NORMALS: Yes no CVA tenderness Extremity: NARRATIVE EXTREMITY EXAM: Bilateral 1+ pitting edema Neuro: COMMON NORMALS: patient oriented x3, CN's II-XII intact bilaterally and moves all extremities Psych: COMMON NORMALS: mental status grossly normal Data 04/23/22 18:50 04/23/22 18:50 Micro: Microbiology 04/23/22 18:50 Blood Culture - Preliminary Blood SPECIMEN COLLECTED 04/23/22 18:54 Blood Culture - Preliminary Blood SPECIMEN COLLECTED A&P Assessment and plan (1) Acute and chronic respiratory failure with hypoxia: (2) Pulmonary edema: (3) Acute kidney injury superimposed on CKD: (4) Small airways disease: (5) Chronic anticoagulation: (6) Chronic atrial fibrillation with rapid ventricular response: (7) EDGAR (obstructive sleep apnea): (8) Chronic respiratory failure: Qualifiers: Respiratory failure complication: hypoxia and hypercapnia Qualified Code(s): J96.11 - Chronic respiratory failure with hypoxia; J96.12 - Chronic respiratory failure with hypercapnia (9) Chronic diastolic (congestive) heart failure: (10) CHF exacerbation: (11) COPD exacerbation: (12) Community acquired bilateral lower lobe pneumonia: (13) Morbid obesity: (14) Obesity hypoventilation syndrome: (15) Dependence on non-invasive ventilation: (16) Elevated INR: (17) NSTEMI (non-ST elevated myocardial infarction): (18) Goals of care, counseling/discussion: Plan Acute on chronic respiratory failure, hypoxic -Likely component from obesity hypoventilation syndrome -Small airway disease -Bilateral lobe pneumonia -Diastolic CHF Plan - will bring in home trilogy machine -Continue BiPAP -Needs ICU admission, will be an ER hold -DVT prophylaxis, creatinine clearance is around 29, stop Xarelto, switch to therapeutic Lovenox -Full code Obesity hypoventilation syndrome, small airway disease - will bring in home trilogy machine -Solu-Medrol 125 mg in the emergency room followed by 40 every 8 hours -Monitor respiratory status closely, DuoNeb, budesonide -Currently on BiPAP requiring 100% FiO2, 19/01 needs ICU admission monitor respiratory status closely Diastolic CHF exacerbation 1. Normal left ventricular size, systolic function and increased ?wall thickness, with no regional wall motion abnormalities. Left ?ventricular ejection fraction is estimated at 60-65 %. ?2. Mildly increased left atrial size. ?3. Pulmonary artery pressure estimated at 41 mm Hg. ?4. No change whe compared to study report dated 12/03/2018. -Bilateral extreme edema 1+, does have anasarca BNP millimeters of 800 -I do feel that he does have a diastolic exacerbation, but is not overtly fluid overloaded -Has received Lasix in the emergency room -Fluid restrictions 1000 cc -Start Bumex 1 mg every 12 hours in a.m. -I am not exactly sure why he is on Entresto? We will have to discuss with cardiology hold for now Bilateral lobe pneumonia -Chest x-ray cannot see bilateral lower lobes, potentially pneumonia especially as he has been hospitalized -Has leukocytosis -We will obtain a Pro-Dayron, CRP, blood cultures, sputum cultures, urine bacterial antigens -Start Rocephin, azithromycin -Monitor respiratory status PETE on CKD -Possibly cardiorenal syndrome -Place Jiménez catheter -We will monitor creatinine as he on Bumex Atrial fibrillation -Stop Xarelto due to creatinine clearance switch to therapeutic Lovenox -Continue amiodarone Type 2 diabetes mellitus -Reports taking Tresiba 60 units twice daily -Switch to Lantus 40 units twice daily, with low-dose sliding scale monitor blood sugars closely as he is on Solu-Medrol Goals of care discussion, full code, agreeable to elective intubation if required Attestations Medical Necessity Statement*: Patient requires hospitalization inpatient, greater than 2 minutes, for acute on chronic hypoxic respiratory failure, hypoxia, COPD exacerbation, diastolic CHF exacerbation, bilateral lobe pneumonia, PETE on CKD, Critical Care Time: Critical Care Time (min): 35 Coding Level of Care Code Acute Code for Chg Fwd Diagnoses Acute and chronic respiratory failure with hypoxia J96.21 Pulmonary edema J81.1 Acute kidney injury superimposed on CKD N17.9; N18.9 Small airways disease J98.4 Chronic anticoagulation Z79.01 Chronic atrial fibrillation with rapid ventricular response I48.20 EDGAR (obstructive sleep apnea) G47.33 Chronic respiratory failure J96.11; J96.12 Respiratory failure complication: hypoxia and hypercapnia Chronic diastolic (congestive) heart failure I50.32 CHF exacerbation I50.9 COPD exacerbation J44.1 Community acquired bilateral lower lobe pneumonia J18.9 Morbid obesity E66.01 Obesity hypoventilation syndrome E66.2 Dependence on non-invasive ventilation Z99.11 Elevated INR R79.1 NSTEMI (non-ST elevated myocardial infarction) I21.4 Goals of care, counseling/discussion Z71.89
[2022-04-23 22:21] LABS: C Reactive Protein 56.1 mg/L (0.0-4.9)
[2022-04-23 22:29] LABS: Procalcitonin 0.35 ng/mL (0-0.5)
[2022-04-24] VITALS (38 sets, daily range): BP systolic 107–168; BP diastolic 43–90; PULSE 76–107; RESP 15–28; TEMP 36.9; O2SAT 88–99
[2022-04-24] MEDS: cefTRIAXone 1,000 MG in sodium chloride 0.9% (plus) 50 ML 100 MG IV (00:33)
[2022-04-24] MEDS: azithromycin 500 MG in sodium chloride 0.9% 250 ML 250 MG IV (00:33)
[2022-04-24] MEDS: pantoprazole 40 mg SDV IVP ×2 (00:34→13:18)
[2022-04-24] MEDS: bumetanide 0.25 mg/mL SDV 4 mL 1 MG IVP ×2 (05:25→17:59)
[2022-04-24] MEDS: venlafaxine ER (24HR) 150 mg Capsule PO (05:29)
[2022-04-24 06:57] LABS: Basophils # 0.1 10^3/uL (0.0-0.1); Basophils % 0.3 %; Eosinophils % 0.1 %; Hemoglobin 8.8 g/dL (11.7-16.6); Lymphocytes # 1.1 10^3/uL (0.8-4.8); Lymphocytes % 7.8 %; Mean Corpuscular HGB Conc 29.3 g/dL (30.0-36.0); Mean Corpuscular Hemoglobin 28.7 pg (28.0-34.0); Mean Corpuscular Volume 97.7 fl (80-94); Mean Platelet Volume 10.7 fL (7.4-10.4); Monocytes # 0.3 10^3/uL (0.2-0.9); Monocytes % 2.1 %; Neutrophils # 12.86 10^3/uL (1.8-7.7); Neutrophils % 89.3 %; Nucleated Red Blood Cells % 0 %; Platelet Count 438 10^3/cmm (130-400); Red Blood Count 3.07 10^6/uL (4.1-5.3); Red Cell Distribution Width 15.7 % (12.1-15.1); White Blood Count 14.4 10^3/uL (4.0-10.0)
[2022-04-24 07:01] LABS: INR 1.59 (0.8-1.2)
[2022-04-24 07:20] LABS: Troponin 5 6HR 41.79 ng/L (0-15)
[2022-04-24 07:27] LABS: Anion Gap 15.6 (5-19); Blood Urea Nitrogen 34 mg/dL (8-23); Calcium 8.3 mg/dL (8.5-10.5); Carbon Dioxide 23 mmol/L (22-29); Chloride 105 mmol/L (98-107); Glomerular Filtration Rate 29.1 mL/min (90-130); Glucose 62 mg/dL (65-115); Magnesium 2.5 mg/dL (1.7-2.3); NT Pro B Type Natriuretic Pept 867 pg/mL (0-125); Osmolality Calculated 292 mOsm/kg (285-295); Phosphorus 5.2 mg/dL (2.5-4.5); Potassium 5.6 mmol/L (3.5-5.1); Sodium 138 mmol/L (136-145)
[2022-04-24 07:29] LABS: Troponin 5 6HR Delta -1.21 ng/L (0-12)
--- NOTE | 2022-04-24 07:52 | CT_ITS ---
WS: [id number] CT CHEST TECHNIQUE: Noncontrast CT of the chest with coronal and sagittal reformatted images. CLINICAL INFORMATION: dyspnea, possible effusions, Triilogy dependent COMPARISON: CT March 02, 2022 DLP: 899.[address] scans at [facility] use at least one of these dose optimization techniques: automated e xposure control; mA and/or kV adjustment per patient size (includes targeted exams where dose is matc hed to clinical indication); or iterative reconstruction. FINDINGS: Small bilateral pleural effusions. Compressive atelectasis in the lung bases. Calcified gra nuloma RIGHT lower lobe. Calcified mediastinal and hilar lymph nodes. Upper lobes are well aerated. V olume loss in the lower lobes. Mild thoracic curve.A few reactive anterior mediastinal and peribronch ial lymph nodes. Normal caliber thoracic aorta. Aortic calcification. Cardiomegaly. Moderate pericardial effusion. Coronary calcification. Hepatomegaly partially visualize d. Small amount of perihepatic ascites. Perisplenic ascites partially visualized. Normal GE junction. Adrenal glands are normal. Fatty atrophy of the pancreas. No axillary lymphadenopathy. CT/CT chest wo con [id number] IMPRESSION: 1. Shallow inspiration. Volume loss in the lower lobes. 2. Small bilateral pleural effusions with compressive atelectasis in the bilat eral lower lobes with air bronchograms may be due to CHF 3. Cardiomegaly with moderate pericardial effusion. 4. Hepatomegaly. 5. Small amount of ascites about the liver and spleen.
--- NOTE | 2022-04-24 08:10 | PM.PN ---
Subjective Subjective: Julius reports he is doing okay, although still short of breath. History and physical reviewed in detail. Since his last hospital stay, he gradually had worsening of his shortness of breath. He does not feel swollen, compared to his baseline. He had some epigastric discomfort when he was really short of breath but this is better currently. Medications: Reviewed: Yes Vitals/I&O/Wt Last Vital Signs Temp 97.8 F 04/23/22 18:37 Pulse 84 04/24/22 05:46 Resp 24 H 04/24/22 05:30 BP 133/71 04/24/22 05:30 Pulse Ox 93 04/24/22 05:46 O2 Del Method 04/23/22 21:00 O2 Flow Rate 15 04/24/22 05:46 FiO2 85 04/24/22 06:00 04/23/22 04/24/22 04/24/22 22:59 06:59 14:59 Intake Total 300 / 300 Output Total 375 / 375 Balance -75 / -75 Weight last 48 hrs Weight 186.88 kg Physical Exam Narrative: General exam is a white male, moderate respiratory distress, currently on BiPAP HEENT: Atraumatic normocephalic. Pupils equally round. Oropharynx not examined as he is on BiPAP Neck is supple Cardiovascular regular rate and rhythm without murmur Lungs diminished breath sounds bilaterally but I do not hear any wheezing Abdomen is soft, obese. Some edema is noted around his umbilicus. No erythema. exam demonstrates Jiménez Extremities show evidence of venous stasis but I do not see a significant amount of edema at this visit. Skin no rash Data 04/24/22 05:00 04/24/22 05:00 Micro: Microbiology 04/23/22 18:50 Blood Culture - Preliminary Blood SPECIMEN COLLECTED 04/23/22 18:54 Blood Culture - Preliminary Blood SPECIMEN COLLECTED A&P Assessment and plan (1) Acute on chronic respiratory failure: Patient presents with acute on chronic respiratory failure. He has a complicated presentation secondary to his morbid obesity, obesity hypoventilation, chronic COPD. His respiratory failure is multifactorial. Acute component may be secondary to pneumonia. (2) Obesity hypoventilation syndrome: Has trilogy at home, continue (3) Acute kidney injury: Likely has hepatorenal syndrome. I do believe overall, he still has evidence of volume overload. Small bilateral pleural effusions are present as well as pericardial effusion. BNP is elevated. Continue to follow closely Associated with hyperkalemia (4) Diabetes mellitus with hyperglycemia, with long-term current use of insulin: Sliding scale insulin Long-acting insulin discontinued secondary to risk of hypoglycemia (5) COPD exacerbation: Continue prednisone 40 mg daily DuoNeb every 4 hours Budesonide inhaled (6) CHF exacerbation: Continue diuresis, currently on Bumex 1 mg IV every 12 hours Echocardiogram was recently done. Appears to mainly have acute diastolic congestive heart failure Secondary to complexity of his problems, cardiology consultation will be obtained (7) Afib: Continue patient's amiodarone. Rate controlled currently. On anticoagulation with rivaroxaban (8) Hyperkalemia: Repeat potassium Kayexalate 30 mg p.o. now Plan Other medical problems as outlined in past medical history Full code currently Xarelto will suffice for DVT prophylaxis Will check into possibility of [facility]. Considering his multiple comorbidities this may be the best chance he has for a better long-term outcome. Attestations Medical Necessity Statement*: Needs continued hospital stay, in the ICU secondary to need for BiPAP 95% FiO2. Coding Level of Care Code Acute Code for Chg Fwd Diagnoses Acute on chronic respiratory failure J96.20 Obesity hypoventilation syndrome E66.2 Acute kidney injury N17.9 Diabetes mellitus with hyperglycemia, with long-term current use of insulin E11.65; Z79.4 COPD exacerbation J44.1 CHF exacerbation I50.9 Afib I48.91 Hyperkalemia E87.5
--- NOTE | 2022-04-24 08:30 | PC.NURSE ---
switched oxygen from nonrebreather to Bipap without nurse in the room.
[2022-04-24] MEDS: hyDRALAzine 50 mg Tablet 100 MG PO ×3 (08:41→19:57)
[2022-04-24] MEDS: atorvastatin 40 mg Tablet PO (08:41)
[2022-04-24] MEDS: montelukast sodium 10 mg Tablet PO (08:41)
[2022-04-24] MEDS: amlodipine 10 mg Tablet PO (08:41)
[2022-04-24] MEDS: BuSPIRONE 10 mg Tablet 15 MG PO (08:41)
[2022-04-24] MEDS: ferrous sulfate EC 325 mg Tablet PO (08:42)
[2022-04-24] MEDS: amiodarone 200 mg Tablet PO (08:42)
[2022-04-24] MEDS: rivaroxaban 10 mg Tablet 20 MG PO (08:42)
[2022-04-24] MEDS: sodium polystyrene sulfonate 15 gm/60 mL Btl 30 GM PO (09:54)
[2022-04-24] MEDS: budesonide 0.5 mg/2 mL Neb INHALATION ×2 (09:57→20:48)
[2022-04-24] MEDS: ipratropium-albuterol 3 mL Neb INHALATION (09:59)
[2022-04-24] MEDS: levothyroxine 175 mcg Tablet PO (10:15)
[2022-04-24 12:07] LABS: Glucose Point of Care 141 mg/dL (70-110)
[2022-04-24 14:33] LABS: Anion Gap 14.4 (5-19); Blood Urea Nitrogen 42 mg/dL (8-23); Calcium 8.6 mg/dL (8.5-10.5); Carbon Dioxide 24 mmol/L (22-29); Chloride 104 mmol/L (98-107); Glomerular Filtration Rate 27.7 mL/min (90-130); Glucose 168 mg/dL (65-115); Osmolality Calculated 298 mOsm/kg (285-295); Potassium 5.4 mmol/L (3.5-5.1); Sodium 137 mmol/L (136-145)
[2022-04-24] MEDS: albuterol 2.5 mg/3 mL Neb INHALATION ×3 (16:12→23:52)
[2022-04-24] MEDS: ipratropium 0.5 mg/2.5 mL Neb INHALATION ×3 (16:12→23:52)
--- NOTE | 2022-04-24 19:55 | PM.CONSULT ---
Providers/Reason For Consult Consulting Physician/Specialty*: Douglas Tee MD/ Cardiology Reason for Consult*: Respiratory failure/congestive heart failure Requesting Physician: Dr Orona Attending Physician: Darien Orona MD Primary Care Provider: SOBIA SamuelC History of Present Illness History of Present Illness Julius Dunlap is a 61 year old male with past medical history of obesity hypoventilation syndrome, hypertension, diabetes, diastolic congestive heart failure, atrial fibrillation on Xarelto who was recently admitted to the hospital with CHF exacerbation and was discharged home after diuresis. He is returning with shortness of breath that is worsening. Also has orthopnea and lower extremity edema. He has been restarted on Bumex. At time of my evaluation he is on bipap and resting comfortably. Heart rate is well controlled. Review of Systems Const: Denies: fever(s), chills, fatigue or malaise Eyes: Denies: change in vision ENMT: Denies: nasal congestion Card: Reports: edema and swelling of feet/ankles; Denies: chest pain or palpitations Resp: Denies: productive cough or non-productive cough GI: Denies: abdominal pain, nausea, vomiting, hematochezia or melena : Denies: flank pain, difficulty urinating, dysuria or urinary frequency Musc: Denies: neck pain or back pain Neuro: Denies: headache(s), dizziness or vertigo Psych: Denies: anxiety Endo: Denies: polyuria or polydipsia Medications/Allergies Home Medications Medication Instructions Recorded Confirmed Last Taken Type ipratropium 0.5 mg-albuterol 3 mg 3 ml inhalation QID PRN Shortness 04/11/19 04/24/22 02/17/21 History (2.5 mg base)/3 mL nebulization Of Breath soln amiodarone 200 mg tablet 200 mg PO DAILY #90 tabs 11/04/21 04/24/22 04/23/22 Rx rivaroxaban 20 mg tablet (Xarelto) 20 mg PO DAILY #90 tabs 11/04/21 04/24/22 04/23/22 Rx flash glucose scanning reader #1 ea 11/17/21 04/24/22 Unknown Rx (FreeStyle Jeremy 2 [place]) flash glucose sensor (FreeStyle #1 ea 11/17/21 04/24/22 Unknown Rx Jeremy 2 Sensor kit) amlodipine 10 mg tablet 10 mg PO DAILY #90 tabs 01/03/22 04/24/22 04/23/22 Rx colesevelam 625 mg tablet (WelChol) 1,875 mg PO BID #540 tabs 01/03/22 04/24/22 04/23/22 Rx hydralazine 100 mg tablet 100 mg PO TID #270 tabs 01/03/22 04/24/22 04/23/22 Rx potassium chloride 20 mEq 20 meq PO BID #180 tabs 01/03/22 04/24/22 04/23/22 Rx tablet,extended release pen needle, diabetic 31 gauge x #100 ea 01/27/22 04/24/22 Unknown Rx 5/16 (TechLITE Pen Needle) buspirone 15 mg tablet 15 mg PO BID #60 tabs 02/17/22 04/24/22 04/23/22 Rx cetirizine 10 mg tablet 10 mg PO DAILY #30 tabs 02/17/22 04/24/22 04/23/22 Rx furosemide 40 mg tablet (Lasix) 40 mg PO BID edema #60 tabs 02/17/22 04/24/22 04/23/22 Rx insulin degludec 100 unit/mL (3 60 unit (0.6 mL) SUBCUT BID #50 mL 02/17/22 04/24/22 04/23/22 Rx mL) subcutaneous pen (Tresiba FlexTouch U-100 insulin) liraglutide 0.6 mg/0.1 mL (18 mg/3 1.8 mg (0.3 mL) SUBCUT Q24H #9 mL 02/17/22 04/24/22 04/23/22 Rx mL) subcutaneous pen injector (Victoza 3-Leonides) montelukast 10 mg tablet 10 mg PO DAILY #30 tabs 02/17/22 04/24/22 04/23/22 Rx (Singulair) rosuvastatin 20 mg tablet 20 mg PO DAILY #30 tabs 02/17/22 04/24/22 04/23/22 Rx sacubitril 49 mg-valsartan 51 mg 1 tab PO BID #60 tabs 02/17/22 04/24/22 04/23/22 Rx tablet (Entresto) umeclidinium 62.5 mcg-vilanterol 1 inh inhalation Q24H #60 ea 02/17/22 04/24/22 04/23/22 Rx 25 mcg/actuation powdr for inhalation (Anoro Ellipta) venlafaxine 150 mg 150 mg PO QAM #30 caps 02/17/22 04/24/22 04/23/22 Rx capsule,extended release 24 hr (Effexor XR) levothyroxine 175 mcg tablet 175 mcg PO DAILY #30 tabs 02/21/22 04/24/22 04/23/22 Rx fenofibrate nanocrystallized 145 145 mg PO BEDTIME 04/06/22 04/24/22 04/23/22 History mg tablet ascorbic acid (vitamin C) 500 mg 500 mg PO DAILY #30 tabs 04/08/22 04/24/22 04/23/22 Rx tablet metformin 500 mg tablet,extended 500 mg PO BID 04/24/22 04/24/22 04/23/22 History release 24 hr Allergies Allergy/AdvReac Type Severity Reaction Status Date / Time No Known Allergies Allergy Verified 04/21/22 21:52 Current Medications Generic Name Dose Route Start Last Admin Trade Name Freq PRN Reason Stop Dose Admin Albuterol Sulfate 2.5 mg 04/24/22 16:00 04/24/22 16:12 Albuterol 2.5 Mg/3 Ml Neb INHALATION 2.5 mg Q4H.RESPIRATORY SANAT Administration Amiodarone HCl 200 mg 04/24/22 09:00 04/24/22 08:42 Amiodarone 200 Mg Tablet PO 200 mg DAILY SANTA Administration Amlodipine Besylate 10 mg 04/24/22 09:00 04/24/22 08:41 Amlodipine 10 Mg Tablet PO 10 mg DAILY SANTA Administration Atorvastatin Calcium 40 mg 04/24/22 09:00 04/24/22 08:41 Atorvastatin 40 Mg Tablet PO 40 mg DAILY SANTA Administration Budesonide 0.5 mg 04/24/22 08:00 04/24/22 09:57 Budesonide 0.5 Mg/2 Ml Neb INHALATION 0.5 mg BID.RESPIRATORY SANTA Administration Bumetanide 1 mg 04/24/22 18:00 04/24/22 17:59 Bumetanide 0.25 Mg/Ml Sdv 4 Ml IVP 1 mg Q12H SANTA Administration Buspirone HCl 15 mg 04/24/22 09:00 04/24/22 17:59 Buspirone 10 Mg Tablet PO Not Given BID SANTA Ferrous Sulfate 325 mg 04/24/22 09:00 04/24/22 18:00 Ferrous Sulfate Ec 325 Mg Tablet PO Not Given BID SANTA Hydralazine HCl 100 mg 04/24/22 09:00 04/24/22 16:00 Hydralazine 50 Mg Tablet PO 100 mg TID SANTA Administration Ceftriaxone Sodium 1,000 mg/ 50 mls @ 100 mls/hr 04/24/22 00:16 04/24/22 03:27 Sodium Chloride IV Infused Q24H SANTA Infusion Protocol Azithromycin 500 mg/ Sodium 250 mls @ 250 mls/hr 04/24/22 00:16 04/24/22 03:27 Chloride IV Infused Q24H SANTA Infusion Protocol Insulin Human Lispro 0 unit 04/24/22 08:00 04/24/22 18:00 Insulin Lispro 100 Unit/1 Ml SUBCUT Not Given TIDWM SANTA Protocol Ipratropium [place] 0.5 mg 04/24/22 16:00 04/24/22 16:12 Ipratropium 0.5 Mg/2.5 Ml Neb INHALATION 0.5 mg Q4H.RESPIRATORY SANTA Administration Levothyroxine Sodium 175 mcg 04/24/22 09:00 04/24/22 10:15 Levothyroxine 175 Mcg Tablet PO 175 mcg DAILY SANTA Administration Montelukast Sodium 10 mg 04/24/22 09:00 04/24/22 08:41 Montelukast Sodium 10 Mg Tablet PO 10 mg DAILY SANTA Administration Non-Formulary Medication 1,875 mg 04/24/22 09:00 04/24/22 18:00 Colesevelam [Welchol] PO Not Given BID SANTA Pantoprazole Sodium 40 mg 04/24/22 00:16 04/24/22 13:18 Pantoprazole 40 Mg Sdv IVP 40 mg Q12H SANTA Administration Rivaroxaban 20 mg 04/24/22 09:00 04/24/22 08:42 Rivaroxaban 10 Mg Tablet PO 20 mg DAILY SANTA Administration Venlafaxine HCl 150 mg 04/24/22 06:00 04/24/22 05:29 Venlafaxine Er (24hr) 150 Mg Capsule PO 150 mg QAM SANTA Administration PFSH Acute PFSH: Medical History Acquired lymphedema Acute diastolic heart failure Acute exacerbation of chronic obstructive airways disease Acute respiratory failure with hypercapnia Afib Allergic rhinitis due to pollen Anemia Anxiety Chronic atrial fibrillation with rapid ventricular response Chronic diastolic (congestive) heart failure Chronic kidney disease Chronic respiratory failure Congestive heart failure Diabetes mellitus with hyperglycemia, with long-term current use of insulin Essential (primary) hypertension GERD (gastroesophageal reflux disease) Hyperlipemia Hypothyroidism Hypoxia, sleep related Leukocytosis Morbid obesity with BMI of 50.0-59.9, adult MRSA infection Obesity hypoventilation syndrome EDGAR (obstructive sleep apnea) Pneumonia, unspecified organism Surgical History H/O esophagogastroduodenoscopy (02/18/21) History of bilateral cataract extraction 2019 and 2020 History of colonoscopy (02/18/21) History of gangrene Left buttocks requiring surgery May 2014 Family History Father Cancer Mother Heart disease CAD (coronary artery disease) Diabetes Heart attack Stroke Brother Heart attack Clotting disorder Stroke Sister Stroke Denies family history of Dementia Chronic kidney disease (CKD) Suicide Anesthesia complication Bleeding disorder Lung disease Social History Smoking and tobacco status: current every day smoker cigarettes Packs smoked per day: 1 Years cigarettes smoked: 50 [ Other cigarette details: Started at age 10] Second hand smoke exposure: Yes Smoking risk assessment/counseling performed?: Yes Alcohol intake: former Year of sobriety/quit date alcohol: 1991 Desire information about alcohol rehabilitation?: No Counseling given: No Desire information about substance/drug rehabilitation?: No Counseling given: No Adopted: No Caregiver/support person: No Lives independently: Yes Household members: spouse Housing: House Marital status: service: No Current occupational status: disabled Pets and animals: Yes History of recent travel: No Current gender identity: Male Vitals/I&O/Wt Last Vital Signs Temp 97.8 F 04/23/22 18:37 Pulse 81 04/24/22 17:31 Resp 22 H 04/24/22 16:10 BP 127/63 04/24/22 17:29 Pulse Ox 95 04/24/22 17:31 O2 Del Method 04/24/22 17:36 O2 Flow Rate 15 04/24/22 05:46 FiO2 85 04/24/22 18:00 04/24/22 04/24/22 04/24/22 06:59 14:59 22:59 Intake Total 300 / 300 Output Total 375 / 375 Balance -75 / -75 Weight last 48 hrs Weight 412 lb Physical Exam Narrative: GENERAL: Patient is alert, awake and oriented x3. On bipap, comfortably sleeping[] NECK: No jugular vein distension. [] HEENT: No cyanosis. No icterus. No pallor. [] HEART: Regular S1 and S2. No murmur, rub or gallop. [] LUNGS:Diminished breath sounds CENTRAL NERVOUS SYSTEM: Grossly nonfocal. [] EXTREMITIES: Lower extremities with 1+ edema bilaterally. Data 04/24/22 05:00 04/24/22 13:50 Micro: Microbiology 04/23/22 18:54 Blood Culture - Preliminary Blood NEGATIVE TO DATE 04/23/22 20:40 Bacterial Antigens - Final Urine,Voided 04/23/22 18:50 Blood Culture - Preliminary Blood SPECIMEN COLLECTED A&P Assessment and plan (1) Afib: (2) Acute kidney injury: (3) Acute on chronic respiratory failure: (4) COPD exacerbation: (5) CHF exacerbation: (6) Diabetes mellitus with hyperglycemia, with long-term current use of insulin: (7) EDGAR (obstructive sleep apnea): (8) Hyperlipemia: Qualifiers: Hyperlipidemia type: mixed hyperlipidemia Qualified Code(s): E78.2 - Mixed hyperlipidemia (9) Chronic diastolic (congestive) heart failure: Plan Patient's respiratory status worsening is secondary to multiple factors including obesity hypoventilation syndrome, diastolic congestive heart failure, obstructive sleep apnea and volume overload. We will need to decrease factors that can exacerbate his worsening volume status. His blood pressure is currently controlled. Heart rate is also under good control. Continue current medications. He is currently on IV Bumex 1 mg twice daily. Continue it for now. Assess I&O's. If renal function stays stable, can uptitrate tomorrow. We will also add metolazone 2.5mg daily. Low sodium diet. He will need long-term monitoring diuresis. Weight loss will be most improtant factor in improving his respiratory status. Consider outpatient endocrinology assessment for weight loss therapies. Also can have assessment by bariatric surgery team for potential options. Thank you for involving us with care of this patient. We will continue to follow. Please call with questions. Consult Attestations Medical Necessity Statement: Care expected to cross 2 midnights Coding Level of Care Code Acute Code for Chg Fwd Diagnoses Afib I48.91 Acute kidney injury N17.9 Acute on chronic respiratory failure J96.20 COPD exacerbation J44.1 CHF exacerbation I50.9 Diabetes mellitus with hyperglycemia, with long-term current use of insulin E11.65; Z79.4 EDGAR (obstructive sleep apnea) G47.33 Hyperlipemia E78.2 Hyperlipidemia type: mixed hyperlipidemia Chronic diastolic (congestive) heart failure I50.32
[2022-04-24] MEDS: fenofibrate 145 mg Tablet PO (19:57)
[2022-04-24 22:30] LABS: Glucose Point of Care 272 mg/dL (70-110)
[2022-04-25] VITALS (52 sets, daily range): BP systolic 92–178; BP diastolic 62–109; PULSE 75–99; RESP 12–29; TEMP 36.6; O2SAT 86–99
[2022-04-25] MEDS: azithromycin 500 MG in sodium chloride 0.9% 250 ML 250 MG IV (00:28)
[2022-04-25] MEDS: pantoprazole 40 mg SDV IVP ×2 (00:33→12:51)
[2022-04-25] MEDS: cefTRIAXone 1,000 MG in sodium chloride 0.9% (plus) 50 ML 100 MG IV (00:34)
[2022-04-25] MEDS: albuterol 2.5 mg/3 mL Neb INHALATION ×6 (03:13→22:59)
[2022-04-25] MEDS: ipratropium 0.5 mg/2.5 mL Neb INHALATION ×6 (03:13→22:59)
[2022-04-25 03:55] LABS: Hematocrit 26.9 % (42.0-52.0); Mean Corpuscular HGB Conc 29.7 g/dL (30.0-36.0); Mean Corpuscular Hemoglobin 29.2 pg (28.0-34.0); Mean Corpuscular Volume 98.2 fl (80-94); Mean Platelet Volume 10.7 fL (7.4-10.4); Platelet Count 378 10^3/cmm (130-400); Red Blood Count 2.74 10^6/uL (4.1-5.3); Red Cell Distribution Width 15.7 % (12.1-15.1)
[2022-04-25 04:14] LABS: Blood Urea Nitrogen 42 mg/dL (8-23); Calcium 8.3 mg/dL (8.5-10.5); Carbon Dioxide 24 mmol/L (22-29); Chloride 104 mmol/L (98-107); Glomerular Filtration Rate 29.1 mL/min (90-130); Glucose 152 mg/dL (65-115); Osmolality Calculated 299 mOsm/kg (285-295); Sodium 138 mmol/L (136-145)
--- NOTE | 2022-04-25 06:40 | PM.PN ---
Subjective Subjective: He is still short of breath. Diuresing well. Vitals/I&O/Wt Last Vital Signs Temp 98.4 F 04/24/22 22:05 Pulse 78 04/25/22 03:15 Resp 22 H 04/25/22 03:13 BP 120/74 04/25/22 01:00 Pulse Ox 90 04/25/22 03:15 O2 Del Method 04/25/22 03:13 O2 Flow Rate 15 04/24/22 05:46 FiO2 85 04/25/22 03:15 04/24/22 04/24/22 04/25/22 14:59 22:59 06:59 Intake Total 590 / 590 300 / 890 Output Total 1450 / 1450 Balance -860 / -860 300 / -560 Weight last 48 hrs Weight 412 lb Physical Exam Narrative: GENERAL: Patient is alert, awake and oriented x3. On bipap, comfortably sleeping[] NECK: No jugular vein distension. [] HEENT: No cyanosis. No icterus. No pallor. [] HEART: Regular S1 and S2. No murmur, rub or gallop. [] LUNGS:Diminished breath sounds CENTRAL NERVOUS SYSTEM: Grossly nonfocal. [] EXTREMITIES: Lower extremities with 1+ edema bilaterally. Data 04/25/22 03:00 04/25/22 03:00 Micro: Microbiology 04/23/22 18:50 Blood Culture - Preliminary Blood NEGATIVE TO DATE 04/23/22 18:54 Blood Culture - Preliminary Blood NEGATIVE TO DATE 04/23/22 20:40 Bacterial Antigens - Final Urine,Voided A&P Assessment and plan (1) Afib: (2) Acute kidney injury: (3) Acute on chronic respiratory failure: (4) COPD exacerbation: (5) CHF exacerbation: (6) Diabetes mellitus with hyperglycemia, with long-term current use of insulin: (7) EDGAR (obstructive sleep apnea): (8) Hyperlipemia: Qualifiers: Hyperlipidemia type: mixed hyperlipidemia Qualified Code(s): E78.2 - Mixed hyperlipidemia (9) Chronic diastolic (congestive) heart failure: Plan Patient's respiratory status worsening is secondary to multiple factors including obesity hypoventilation syndrome, diastolic congestive heart failure, obstructive sleep apnea and volume overload. We will need to decrease factors that can exacerbate his worsening volume status. His blood pressure is currently controlled. Heart rate is also under good control. Continue current medications. Continue metolazone and IV bumex. Close I and Os Weight loss will be most improtant factor in improving his respiratory status. Consider outpatient endocrinology assessment for weight loss therapies. Also can have assessment by bariatric surgery team for potential options. Thank you for involving us with care of this patient. We will continue to follow. Please call with questions. Attestations Medical Necessity Statement*: Care expected to cross 2 midnights Coding Level of Care Code Acute Code for Chg Fwd Diagnoses Afib I48.91 Acute kidney injury N17.9 Acute on chronic respiratory failure J96.20 COPD exacerbation J44.1 CHF exacerbation I50.9 Diabetes mellitus with hyperglycemia, with long-term current use of insulin E11.65; Z79.4 EDGAR (obstructive sleep apnea) G47.33 Hyperlipemia E78.2 Hyperlipidemia type: mixed hyperlipidemia Chronic diastolic (congestive) heart failure I50.32
[2022-04-25 06:42] LABS: Absolute Eosinophils 0.3 10^3/cmm (0.0-0.7); Absolute Segmented Neutrophil 10.2 10/cmm (1.6-7.1); Band Neutrophils Absolute 0.3 10^3/cmm (0.0-1.2); Eosinophils 2 %; Lymphocytes 16 %; Lymphocytes Absolute 2.4 10^3/cmm (1.2-3.4); Monocytes Absolute 1.8 10^3/cmm (0.1-0.6); Segmented Neutrophils 68 %; Total Cells Counted 100 (0-100)
[2022-04-25 06:43] LABS: Absolute Neutrophil 10.5 10^3/cmm (1.4-6.5); Anisocytosis 1+; Platelet Estimate Increased (Normal); Tear Drop Cells 1+
[2022-04-25] MEDS: venlafaxine ER (24HR) 150 mg Capsule PO (06:58)
[2022-04-25] MEDS: bumetanide 0.25 mg/mL SDV 4 mL 1 MG IVP ×2 (06:59→17:49)
[2022-04-25] MEDS: budesonide 0.5 mg/2 mL Neb INHALATION ×2 (07:37→19:53)
[2022-04-25 07:53] LABS: Glucose Point of Care 136 mg/dL (70-110)
--- NOTE | 2022-04-25 09:09 | PM.PN ---
Subjective Subjective: Reports he feels little bit better today. Got some sleep. Still requiring high levels of FiO2 and BiPAP. Denies any chest pain. Medications: Reviewed: Yes Vitals/I&O/Wt Last Vital Signs Temp 98.4 F 04/24/22 22:05 Pulse 80 04/25/22 07:40 Resp 17 04/25/22 07:20 BP 137/79 04/25/22 07:00 Pulse Ox 98 04/25/22 07:40 O2 Del Method 04/25/22 07:20 O2 Flow Rate 15 04/24/22 05:46 FiO2 85 04/25/22 07:40 04/24/22 04/25/22 04/25/22 22:59 06:59 14:59 Intake Total 590 / 590 300 / 890 Output Total 1450 / 1450 750 / 750 Balance -860 / -860 300 / -560 -750 / -750 Weight last 48 hrs Weight 186.88 kg Physical Exam Narrative: General exam is a white male, no distress, currently BiPAP dependent with FiO2 of 85% Neck is supple Cardiovascular regular rate and rhythm without murmur Lungs diminished breath sounds bilaterally. No audible wheezing Abdomen is soft, obese. Bowel sounds evident exam demonstrates Jiménez Extremities show evidence of venous stasis. Perhaps trace edema Skin no rash Data 04/25/22 03:00 04/25/22 03:00 Micro: Microbiology 04/23/22 18:50 Blood Culture - Preliminary Blood NEGATIVE TO DATE 04/23/22 18:54 Blood Culture - Preliminary Blood NEGATIVE TO DATE 04/23/22 20:40 Bacterial Antigens - Final Urine,Voided A&P Assessment and plan (1) Acute on chronic respiratory failure: Patient presents with acute on chronic respiratory failure. He has a complicated presentation secondary to his morbid obesity, obesity hypoventilation, chronic COPD. His respiratory failure is multifactorial. Acute component may be secondary to pneumonia. (2) Obesity hypoventilation syndrome: Has trilogy at home, continue BiPAP currently (3) Acute kidney injury: Likely has cardiorenal syndrome I do believe overall, he still has evidence of volume overload. Small bilateral pleural effusions are present as well as pericardial effusion. BNP is elevated. Continue to diurese Appreciate cardiology consultation, note that they have added Zaroxolyn. (4) Diabetes mellitus with hyperglycemia, with long-term current use of insulin: Sliding scale insulin Long-acting insulin discontinued secondary to risk of hypoglycemia (5) COPD exacerbation: Continue prednisone 40 mg daily DuoNeb every 4 hours Budesonide inhaled (6) CHF exacerbation: Continue diuresis, currently on Bumex 1 mg IV every 12 hours Echocardiogram was recently done. Appears to mainly have acute diastolic congestive heart failure Appreciate cardiology consultation. Zaroxolyn has been added. He was -1300 mL the last 24 hours. (7) Afib: Continue patient's amiodarone. Rate controlled currently. On anticoagulation with rivaroxaban. Reduced to 15 mg daily secondary to renal function (8) Hyperkalemia: Improved, continue to follow (9) Community acquired bilateral lower lobe pneumonia: Changed to Zosyn Discontinue Rocephin Await cultures Await MRSA PCR Plan Anemia, chronic. Continue close monitoring of hemoglobin. Known to have iron deficiency anemia and has been supplemented in the past. Other medical problems as outlined in past medical history Full code currently Xarelto will suffice for DVT prophylaxis Will check into possibility of [facility]. Considering his multiple comorbidities this may be the best chance he has for a better long-term outcome. Attestations Medical Necessity Statement*: Needs continued hospitalization secondary to his respiratory failure requiring BiPAP dependency. Critical Care Time: The high probability of a clinically significant, sudden or life threatening deterioration of the patient's [renal, cardiac, infectious disease, hematologic] system(s) required my full and direct attention, intervention and personal management. The critical care time is as shown. This time is in addition to time spent performing any reported procedures but includes the following: [x] Data and vital sign review and interpretation [x] Patient assessment, examination and intervention [x] Documentation [x] Medication orders and management Critical Care Time (min): 37 Coding Level of Care Code Acute Code for Chg Fwd Diagnoses Acute on chronic respiratory failure J96.20 Obesity hypoventilation syndrome E66.2 Acute kidney injury N17.9 Diabetes mellitus with hyperglycemia, with long-term current use of insulin E11.65; Z79.4 COPD exacerbation J44.1 CHF exacerbation I50.9 Afib I48.91 Hyperkalemia E87.5 Community acquired bilateral lower lobe pneumonia J18.9
[2022-04-25] MEDS: levothyroxine 175 mcg Tablet PO (09:12)
[2022-04-25] MEDS: metOLazone 5 MG Tablet 2.5 MG PO (09:12)
[2022-04-25] MEDS: atorvastatin 40 mg Tablet PO (09:13)
[2022-04-25] MEDS: predniSONE 20 mg Tablet 40 MG PO (09:13)
[2022-04-25] MEDS: rivaroxaban 10 mg Tablet 20 MG PO (09:13)
[2022-04-25] MEDS: hyDRALAzine 50 mg Tablet 100 MG PO ×3 (09:13→20:15)
[2022-04-25] MEDS: montelukast sodium 10 mg Tablet PO (09:13)
[2022-04-25] MEDS: BuSPIRONE 10 mg Tablet 15 MG PO ×2 (09:13→17:46)
[2022-04-25] MEDS: amiodarone 200 mg Tablet PO (09:14)
[2022-04-25] MEDS: amlodipine 10 mg Tablet PO (09:14)
[2022-04-25] MEDS: ferrous sulfate EC 325 mg Tablet PO ×2 (09:14→17:46)
[2022-04-25] MEDS: piperacillin-tazobactam 3.375 GM in sodium chloride 0.9% (plus) 50 ML IV ×2 (11:02→17:48)
--- NOTE | 2022-04-25 12:02 | PC.CHAP ---
Pastoral Care Encounter/Spiritual Assessment Type of Contact [] Declined wheel installer visit [] Patient/Family/Request visit [] Outpatient visit [] Follow-up visit [] Physician referral [] Code/Alert [x] Routine visit [] Staff referral [] Actively dying [x] Patient sleeping [] Family support [] [] Out of room [] Palliative care [] [] Receiving care in room [] Pre-surgical visit [] Trauma [] Long length of stay [x] ICU visit [] Other: Relational/Emotional Strength [] Patient feels connected with others/family/visitors/staff [] Distress [] Loneliness/isolation [] Abandonment Spirituality of Patient [] Person of Monalisa [] Attends Hindu of their Monalisa [] Believes in Prayer [] Reads Bible or Judaism materials [] There are Spiritual issues to be addressed Chemistry Technician Interventions [x] Prayer [] Active listening [] Non-anxious presence [] Spiritual/emotional support [] Crisis/trauma care [] Spiritual counseling [] Bereavement support [] Provided bereavement packet [] Provided Bible/devotional materials [] Provided toy/stuffed animal, coloring book to patient or family member [] Provided Communion [] Anointing/Joanna [] Salvation [x] Completed spiritual assessment [] Other: Impact on Illness or Injury [] Angry [] Fearful [] Anxious [] Often cries [] Exhaustion [] Unable to work [] Unable to attend uatsdin [] Unable to walk/stand [] Unable to read [] Unable to drive [] Unable to eat/drink [] Unable to sleep [] Unable to be with family [] Patient intubated [] Other: Summary Time spent with patient
[2022-04-25 12:16] LABS: Glucose Point of Care 136 mg/dL (70-110)
[2022-04-25 17:29] LABS: Glucose Point of Care 203 mg/dL (70-110)
[2022-04-25] MEDS: insulin lispro 100 unit/1 mL SUBCUT (17:48)
--- NOTE | 2022-04-25 19:02 | PC.NURSE ---
Shift Note: Pt has been on 70% FIO2 BiPap, . He use non rebreather for breakfast and lunch. He was switched to hi flow nasal cannula for dinner. He tolerated that well. He has laid in bed or sat up on side of bed. Lung sounds difficult to auscultate. He has a floey, 1800ml output this shift. He received Zaroxolyn and bumex this shift. His blood sugars have been controlled. Only needed insulin at dinner time, 4 units for 203mg/dl. HIs stays at bedside, very attentive assisting his with his ADLS. Frequent safety and comfort rounds continue. Orders and/or nursing care completed as indicated. Patient monitored for response to intervention and treatment(s). Education provided includes ZOsyn zaroxolyn, bumex, plan of care and progress. . Patient and/or practice representative verbalized understanding of all topics discussed. . Will continue to monitor.
[2022-04-25] MEDS: efferdent effervescent 1 EACH DENTAL (19:11)
[2022-04-25] MEDS: fenofibrate 145 mg Tablet PO (20:15)
[2022-04-26] VITALS (37 sets, daily range): BP systolic 112–169; BP diastolic 62–102; PULSE 78–107; RESP 3–30; TEMP 36.4–36.7; O2SAT 89–96
[2022-04-26] MEDS: pantoprazole 40 mg SDV IVP ×3 (00:09→22:50)
[2022-04-26] MEDS: azithromycin 500 MG in sodium chloride 0.9% 250 ML 250 MG IV (00:10)
[2022-04-26] MEDS: diphenhydrAMINE 25 mg Capsule PO ×2 (00:10→21:21)
[2022-04-26] MEDS: piperacillin-tazobactam 3.375 GM in sodium chloride 0.9% (plus) 50 ML IV ×3 (01:59→18:05)
[2022-04-26] MEDS: albuterol 2.5 mg/3 mL Neb INHALATION ×6 (03:15→23:39)
[2022-04-26] MEDS: ipratropium 0.5 mg/2.5 mL Neb INHALATION ×6 (03:15→23:39)
[2022-04-26 04:11] LABS: Basophils % 0.3 %; Eosinophils % 0.1 %; Hematocrit 26.9 % (42.0-52.0); Hemoglobin 8.1 g/dL (11.7-16.6); Lymphocytes # 1.9 10^3/uL (0.8-4.8); Lymphocytes % 13.3 %; Mean Corpuscular HGB Conc 30.1 g/dL (30.0-36.0); Mean Corpuscular Hemoglobin 28.8 pg (28.0-34.0); Mean Corpuscular Volume 95.7 fl (80-94); Mean Platelet Volume 10.1 fL (7.4-10.4); Monocytes # 1.3 10^3/uL (0.2-0.9); Monocytes % 9.6 %; Neutrophils # 10.66 10^3/uL (1.8-7.7); Neutrophils % 76.3 %; Nucleated Red Blood Cells % 0 %; Platelet Count 409 10^3/cmm (130-400); Red Blood Count 2.81 10^6/uL (4.1-5.3); Red Cell Distribution Width 15.4 % (12.1-15.1)
[2022-04-26 04:40] LABS: Anion Gap 14.4 (5-19); Blood Urea Nitrogen 42 mg/dL (8-23); Calcium 8.5 mg/dL (8.5-10.5); Carbon Dioxide 26 mmol/L (22-29); Chloride 105 mmol/L (98-107); Glomerular Filtration Rate 30.6 mL/min (90-130); Glucose 158 mg/dL (65-115); Magnesium 2.8 mg/dL (1.7-2.3); Osmolality Calculated 306 mOsm/kg (285-295); Potassium 4.4 mmol/L (3.5-5.1); Sodium 141 mmol/L (136-145)
[2022-04-26 05:22] LABS: Glucose Point of Care 230 mg/dL (70-110)
[2022-04-26] MEDS: bumetanide 0.25 mg/mL SDV 4 mL 1 MG IVP ×2 (05:30→18:04)
[2022-04-26] MEDS: venlafaxine ER (24HR) 150 mg Capsule PO (05:30)
[2022-04-26] MEDS: budesonide 0.5 mg/2 mL Neb INHALATION ×2 (08:09→20:07)
[2022-04-26 08:25] LABS: Glucose Point of Care 138 mg/dL (70-110)
--- NOTE | 2022-04-26 08:50 | P.PN_ITS ---
Subjective Subjective: Julius reports he feels little bit better. Still on BiPAP this morning but FiO2 has decreased to 60%. 2700 out over the last 24 hours. Medications: Reviewed: Yes Vitals/I&O/Wt Last Vital Signs Temp 97.8 F 04/26/22 04:00 Pulse 86 04/26/22 08:11 Resp 20 H 04/26/22 08:09 BP 128/66 04/26/22 04:00 Pulse Ox 93 04/26/22 08:11 O2 Del Method 04/26/22 08:09 O2 Flow Rate 15 04/24/22 05:46 FiO2 60 04/26/22 08:11 04/25/22 04/26/22 04/26/22 22:59 06:59 14:59 Intake Total 160 / 610 490 / 1100 Output Total 400 / 2450 1800 / 4250 Balance -240 / -1840 -1310 / -3150 Weight last 48 hrs Weight 206.8 kg Physical Exam Narrative: General exam is a white male, no distress, currently BiPAP dependent with FiO2 of 60% Neck is supple Cardiovascular regular rate and rhythm without murmur Lungs diminished breath sounds bilaterally. No audible wheezing Abdomen is soft, obese. Bowel sounds evident exam demonstrates Jiménez Extremities show evidence of venous stasis. Perhaps trace edema Skin no rash Data 04/26/22 03:37 04/26/22 03:37 Micro: Microbiology 04/24/22 12:12 MRSA Culture - Final Nose A&P Assessment and plan (1) Acute on chronic respiratory failure: Patient presents with acute on chronic respiratory failure. He has a complicated presentation secondary to his morbid obesity, obesity hypoventilation, chronic COPD. His respiratory failure is multifactorial. Acute component may be secondary to pneumonia. He is improving somewhat. His FiO2 requirement has gone down to 60%. (2) Obesity hypoventilation syndrome: Has trilogy at home, continue BiPAP currently (3) Acute kidney injury: Likely has cardiorenal syndrome I do believe overall, he still has evidence of volume overload. Small bilateral pleural effusions are present as well as pericardial effusion. BNP is elevated. Continue to diurese. -2700 over the last 24 hours. Creatinine is not at baseline, but has improved slightly to 2.2. He appears to be tolerating the diuresis. Appreciate cardiology consultation, note that they have added Zaroxolyn. (4) Diabetes mellitus with hyperglycemia, with long-term current use of insulin: Sliding scale insulin Long-acting insulin discontinued secondary to risk of hypoglycemia (5) COPD exacerbation: Continue prednisone 40 mg daily DuoNeb every 4 hours Budesonide inhaled (6) CHF exacerbation: Continue diuresis, currently on Bumex 1 mg IV every 12 hours Echocardiogram was recently done. Appears to mainly have acute diastolic congestive heart failure Appreciate cardiology consultation. Zaroxolyn has been added. He is -3800 over his hospital course (7) Afib: Continue patient's amiodarone. Rate controlled currently. On anticoagulation with rivaroxaban. Reduced to 15 mg daily secondary to renal function (8) Hyperkalemia: Improved, continue to follow (9) Community acquired bilateral lower lobe pneumonia: Continue Zosyn Discontinue Zithromax Await cultures MRSA PCR negative Plan Anemia, chronic. Continue close monitoring of hemoglobin. Known to have iron deficiency anemia and has been supplemented in the past. Other medical problems as outlined in past medical history Full code currently Xarelto will suffice for DVT prophylaxis Checking into possibility of [facility]. Considering his mu ltiple comorbidities this may be the best chance he has for a better long-term outcome. He has made some improvement here, with reduction in FiO2 requirement. Attestations Medical Necessity Statement*: Needs continued hospitalization for further diuresis secondary to acute diastolic heart failure, pneumonia, acute on chronic respiratory failure Coding Level of Care Code Acute Code for Chg Fwd Diagnoses Acute on chronic respiratory failure J96.20 Obesity hypoventilation syndrome E66.2 Acute kidney injury N17.9 Diabetes mellitus with hyperglycemia, with long-term current use of insulin E11.65; Z79.4 COPD exacerbation J44.1 CHF exacerbation I50.9 Afib I48.91 Hyperkalemia E87.5 Community acquired bilateral lower lobe pneumonia J18.9
[2022-04-26] MEDS: metOLazone 5 MG Tablet 2.5 MG PO (09:18)
[2022-04-26] MEDS: predniSONE 20 mg Tablet 40 MG PO (09:18)
[2022-04-26] MEDS: hyDRALAzine 50 mg Tablet 100 MG PO ×3 (09:19→21:20)
[2022-04-26] MEDS: rivaroxaban 10 mg Tablet 15 MG PO (09:19)
[2022-04-26] MEDS: BuSPIRONE 10 mg Tablet 15 MG PO ×2 (09:24→18:02)
[2022-04-26] MEDS: levothyroxine 175 mcg Tablet PO (09:24)
[2022-04-26] MEDS: ferrous sulfate EC 325 mg Tablet PO ×2 (09:24→18:02)
--- NOTE | 2022-04-26 09:24 | PM.PN ---
Subjective Subjective: Patient is stable. Shortness of breath is improving. Vitals/I&O/Wt Last Vital Signs Temp 97.8 F 04/26/22 04:00 Pulse 86 04/26/22 08:11 Resp 20 H 04/26/22 08:09 BP 128/66 04/26/22 04:00 Pulse Ox 93 04/26/22 08:11 O2 Del Method 04/26/22 08:09 O2 Flow Rate 15 04/24/22 05:46 FiO2 60 04/26/22 08:11 04/25/22 04/26/22 04/26/22 22:59 06:59 14:59 Intake Total 160 / 610 490 / 1100 Output Total 400 / 2450 1800 / 4250 Balance -240 / -1840 -1310 / -3150 Weight last 48 hrs Weight 455 lb 14.655 oz Physical Exam Narrative: GENERAL: Patient is alert, awake and oriented x3. On bipap, comfortable] NECK: No jugular vein distension. [] HEENT: No cyanosis. No icterus. No pallor. [] HEART: Regular S1 and S2. No murmur, rub or gallop. [] LUNGS:Diminished breath sounds CENTRAL NERVOUS SYSTEM: Grossly nonfocal. [] EXTREMITIES: Lower extremities with 1+ edema bilaterally. Data 04/26/22 03:37 04/26/22 03:37 Micro: Microbiology 04/24/22 12:12 MRSA Culture - Final Nose A&P Assessment and plan (1) Afib: (2) Acute kidney injury: (3) Acute on chronic respiratory failure: (4) COPD exacerbation: (5) CHF exacerbation: (6) Diabetes mellitus with hyperglycemia, with long-term current use of insulin: (7) EDGAR (obstructive sleep apnea): (8) Hyperlipemia: Qualifiers: Hyperlipidemia type: mixed hyperlipidemia Qualified Code(s): E78.2 - Mixed hyperlipidemia (9) Chronic diastolic (congestive) heart failure: Plan Patient's respiratory status worsening is secondary to multiple factors including obesity hypoventilation syndrome, diastolic congestive heart failure, obstructive sleep apnea and volume overload. We will need to decrease factors that can exacerbate his worsening volume status. His blood pressure is currently controlled. Heart rate is also under good control. Continue current medications. He is diuresing well. we will continue with diuretics at current doses. Strict I and Os. Weight loss will be most improtant factor in improving his respiratory status. Consider outpatient endocrinology assessment for weight loss therapies. Also can have assessment by bariatric surgery team for potential options. Thank you for involving us with care of this patient. We will continue to follow. Please call with questions. Attestations Medical Necessity Statement*: Care expected to cross 2 midnights Coding Level of Care Code Acute Code for Chg Fwd Diagnoses Afib I48.91 Acute kidney injury N17.9 Acute on chronic respiratory failure J96.20 COPD exacerbation J44.1 CHF exacerbation I50.9 Diabetes mellitus with hyperglycemia, with long-term current use of insulin E11.65; Z79.4 EDGAR (obstructive sleep apnea) G47.33 Hyperlipemia E78.2 Hyperlipidemia type: mixed hyperlipidemia Chronic diastolic (congestive) heart failure I50.32
[2022-04-26] MEDS: atorvastatin 40 mg Tablet PO (09:26)
[2022-04-26] MEDS: montelukast sodium 10 mg Tablet PO (09:26)
[2022-04-26] MEDS: amlodipine 10 mg Tablet PO (09:26)
[2022-04-26] MEDS: amiodarone 200 mg Tablet PO (09:26)
[2022-04-26 11:53] LABS: Glucose Point of Care 207 mg/dL (70-110)
[2022-04-26] MEDS: insulin lispro 100 unit/1 mL SUBCUT ×2 (13:04→18:01)
[2022-04-26 17:41] LABS: Glucose Point of Care 252 mg/dL (70-110)
--- NOTE | 2022-04-26 18:42 | PC.NURSE ---
Shift Note; Pt using Bipap at 60% most of the time, at meal times he uses high flow nasal cannula and tolerates it well. He has been out of bed with PT today working on sit to stands. his lung sounds are more open today. HIs urine ouput was 2475 ml this shift. He requested Benadryl again for sleeping tonight, he stated it worked well last night. Frequent safety and comfort rounds continue. Orders and/or nursing care completed as indicated. Patient monitored for response to intervention and treatment(s). Education provided includes zaroxolyn, bennadryl, plan of and progress. Patient and/or printing supplies sales representative verbalized understanding of topics discussed. . Will continue to monitor.
[2022-04-26] MEDS: fenofibrate 145 mg Tablet PO (21:20)
[2022-04-26 21:22] LABS: Glucose Point of Care 271 mg/dL (70-110)
--- NOTE | 2022-04-26 22:54 | PC.NURSE ---
0127 report called to Pamela 2230 patient transported to room 104 via bed; at bedside; patient tolerated well
--- NOTE | 2022-04-26 22:55 | PC.NURSE ---
Patient received from ICU via baribed. Patient resting at this time. AAOx4. at bedside. Assessment completed. Denies pain or needs at this time. Will continue to monitor..
[2022-04-27] VITALS (30 sets, daily range): BP systolic 117–152; BP diastolic 69–87; PULSE 77–106; RESP 15–42; TEMP 36.2–36.7; O2SAT 87–98
[2022-04-27] MEDS: piperacillin-tazobactam 3.375 GM in sodium chloride 0.9% (plus) 50 ML IV ×3 (02:58→17:08)
[2022-04-27] MEDS: albuterol 2.5 mg/3 mL Neb INHALATION ×5 (03:35→19:10)
[2022-04-27] MEDS: ipratropium 0.5 mg/2.5 mL Neb INHALATION ×5 (03:36→19:10)
[2022-04-27 03:55] LABS: Basophils % 0.1 %; Eosinophils % 0.1 %; Hematocrit 27.2 % (42.0-52.0); Hemoglobin 8.1 g/dL (11.7-16.6); Lymphocytes # 1.8 10^3/uL (0.8-4.8); Lymphocytes % 13.3 %; Mean Corpuscular HGB Conc 29.8 g/dL (30.0-36.0); Mean Corpuscular Hemoglobin 28.6 pg (28.0-34.0); Mean Corpuscular Volume 96.1 fl (80-94); Mean Platelet Volume 10.2 fL (7.4-10.4); Monocytes # 1.4 10^3/uL (0.2-0.9); Monocytes % 9.8 %; Neutrophils # 10.43 10^3/uL (1.8-7.7); Neutrophils % 76.2 %; Nucleated Red Blood Cells % 0 %; Platelet Count 412 10^3/cmm (130-400); Red Blood Count 2.83 10^6/uL (4.1-5.3); Red Cell Distribution Width 15.8 % (12.1-15.1); White Blood Count 13.7 10^3/uL (4.0-10.0)
[2022-04-27 04:10] LABS: Blood Urea Nitrogen 39 mg/dL (8-23); Calcium 8.6 mg/dL (8.5-10.5); Carbon Dioxide 27 mmol/L (22-29); Chloride 104 mmol/L (98-107); Glomerular Filtration Rate 32.3 mL/min (90-130); Glucose 166 mg/dL (65-115); Magnesium 2.7 mg/dL (1.7-2.3); Osmolality Calculated 307 mOsm/kg (285-295); Sodium 142 mmol/L (136-145)
[2022-04-27] MEDS: venlafaxine ER (24HR) 150 mg Capsule PO (04:37)
[2022-04-27] MEDS: bumetanide 0.25 mg/mL SDV 4 mL 1 MG IVP ×2 (04:37→17:08)
[2022-04-27 06:04] LABS: Glucose Point of Care 159 mg/dL (70-110)
[2022-04-27] MEDS: budesonide 0.5 mg/2 mL Neb INHALATION ×2 (07:30→19:10)
--- NOTE | 2022-04-27 08:47 | PC.SOCIAL ---
IMM Update pg 2 of IMM updated and reviewed w/ patients . Copy provided and Copy dated, initialed and placed in chart.
--- NOTE | 2022-04-27 09:14 | PM.PN ---
Subjective Subjective: Julius reports he really could not sleep last night. No pain. Breathing is about the same. He is down to about 55 to 60% on BiPAP. Medications: Reviewed: Yes Vitals/I&O/Wt Last Vital Signs Temp 97.2 F L 04/27/22 08:00 Pulse 93 04/27/22 08:00 Resp 21 H 04/27/22 08:00 BP 125/77 04/27/22 08:00 Pulse Ox 95 04/27/22 08:00 O2 Del Method 04/27/22 08:00 O2 Flow Rate 15 04/24/22 05:46 FiO2 60 04/27/22 07:50 04/26/22 04/27/22 04/27/22 22:59 06:59 14:59 Intake Total 590 / 1090 370 / 1460 320 / 320 Output Total 1225 / 2475 1850 / 4325 1850 / 1850 Balance -635 / -1385 -1480 / -2865 -1530 / -1530 Weight last 48 hrs Weight 206.6 kg Weight 206.6 kg Weight 206.8 kg Physical Exam Narrative: General exam is a white male, no distress on BiPAP with a current FiO2 of 55% Neck is supple Cardiovascular regular rate and rhythm without murmur Lungs diminished breath sounds bilaterally. No audible wheezing Abdomen is soft, obese. Bowel sounds evident exam demonstrates Jiménez Extremities show evidence of venous stasis. Trace edema present. Skin no rash Data 04/27/22 03:23 04/27/22 03:23 A&P Assessment and plan (1) Acute on chronic respiratory failure: Patient presents with acute on chronic respiratory failure. He has a complicated presentation secondary to his morbid obesity, obesity hypoventilation, chronic COPD. His respiratory failure is multifactorial. Acute component may be secondary to pneumonia. He is improving somewhat. His FiO2 requirement has gone down to 55%. (2) Obesity hypoventilation syndrome: Has trilogy at home, continue BiPAP currently (3) Acute kidney injury: Likely has cardiorenal syndrome He continues to diurese, with 3345 out over the last 24 hours. Small bilateral pleural effusions are present as well as pericardial effusion. BNP is elevated. Creatinine is not at baseline, but has improved slightly to 2.1. Currently tolerating the diuresis. Appreciate cardiology consultation, note that they have added Zaroxolyn. (4) Diabetes mellitus with hyperglycemia, with long-term current use of insulin: Sliding scale insulin Long-acting insulin discontinued secondary to risk of hypoglycemia (5) COPD exacerbation: Discontinue prednisone today, he has had 5 days and not actively wheezing Continue DuoNeb every 4 hours Budesonide inhaled (6) CHF exacerbation: Continue diuresis, currently on Bumex 1 mg IV every 12 hours Echocardiogram was recently done. Appears to mainly have acute diastolic congestive heart failure Appreciate cardiology consultation. Zaroxolyn has been added. He has -8100 so far this hospital course. (7) Afib: Continue patient's amiodarone. Rate controlled currently. On anticoagulation with rivaroxaban. Reduced to 15 mg daily secondary to renal function (8) Hyperkalemia: Improved, continue to follow (9) Community acquired bilateral lower lobe pneumonia: Continue Zosyn Await cultures MRSA PCR negative Plan Anemia, chronic. Continue close monitoring of hemoglobin. Known to have iron deficiency anemia and has been supplemented in the past. Other medical problems as outlined in past medical history Full code currently Xarelto will suffice for DVT prophylaxis Checking into possibility of [facility]. Considering his multiple comorbidities this may be the best chance he has for a better long-term outcome. He has had some improvement, but I suspect this will be short-lived if he does not get longer-term therapy in the hospital setting with weight loss. His quality of life has significantly decreased in the last year according to family, and currently he is requiring noninvasive ventilatory support near 24 hours a day. Without placement in the long-term care hospital placement for continued optimization, therapy, weight loss, I suspect he will soon restart his downward spiral. Attestations Medical Necessity Statement*: Needs continued hospital stay secondary to need for further diuresis, treatment of pneumonia with IV antibiotics, support with high amount of FiO2 on BiPAP. Coding Level of Care Code Acute Code for [facility] Fwd Diagnoses Acute on chronic respiratory failure J96.20 Obesity hypoventilation syndrome E66.2 Acute kidney injury N17.9 Diabetes mellitus with hyperglycemia, with long-term current use of insulin E11.65; Z79.4 COPD exacerbation J44.1 CHF exacerbation I50.9 Afib I48.91 Hyperkalemia E87.5 Community acquired bilateral lower lobe pneumonia J18.9
--- NOTE | 2022-04-27 09:22 | US_ITS ---
WS: [id number] ULTRASOUND RENAL TECHNIQUE: Ultrasound examination of both kidneys. CLINICAL INFORMATION: renal failure COMPARISON: None. FINDINGS: Technically difficult study due to body habitus RIGHT: Right kidney is normal in size and appearance. Echogenicity: Normal. Cortical thickness: 1.9 cm; Normal. Hydronephrosis: None. Perinephric fluid: None. Right kidney measures: 11.8 cm x 6.2 cm x 6.6 cm. LEFT: Left kidney is normal in size and appearance. Echogenicity: Normal. Cortical thickness: 1.8 cm; Normal. Hydronephrosis: None. Perinephric fluid: None. Left kidney measures: 11.9 cm x 6.0 cm x 6.2 cm. Normal visualized aorta. US/US renal BI* [id number] IMPRESSION: Technically difficult study due to body habitus. 1. No hydronephrosis in either kidney. 2. Bladder not visualized due to patient's inability to lie supine
--- NOTE | 2022-04-27 09:40 | P.PN_ITS ---
Subjective Subjective: Patient is doing better. Has been diuresing well. Vitals/I&O/Wt Last Vital Signs Temp 97.2 F L 04/27/22 08:00 Pulse 93 04/27/22 08:00 Resp 21 H 04/27/22 08:00 BP 125/77 04/27/22 08:00 Pulse Ox 95 04/27/22 08:00 O2 Del Method 04/27/22 08:00 O2 Flow Rate 15 04/24/22 05:46 FiO2 60 04/27/22 07:50 04/26/22 04/27/22 04/27/22 22:59 06:59 14:59 Intake Total 590 / 1090 370 / 1460 320 / 320 Output Total 1225 / 2475 1850 / 4325 1850 / 1850 Balance -635 / -1385 -1480 / -2865 -1530 / -1530 Weight last 48 hrs Weight 455 lb 7.6 oz Weight 455 lb 7.6 oz Weight 455 lb 14.655 oz Physical Exam Narrative: GENERAL: Patient is alert, awake and oriented x3. On bipap, comfortable] NECK: No jugular vein distension. [] HEENT: No cyanosis. No icterus. No pallor. [] HEART: Regular S1 and S2. No murmur, rub or gallop. [] LUNGS:Diminished breath sounds CENTRAL NERVOUS SYSTEM: Grossly nonfocal. [] EXTREMITIES: Lower extremities with 1+ edema bilaterally. Data 04/27/22 03:23 04/27/22 03:23 A&P Assessment and plan (1) Afib: (2) Acute kidney injury: (3) Acute on chronic respiratory failure: (4) COPD exacerbation: (5) CHF exacerbation: (6) Diabetes mellitus with hyperglycemia, with long-term current use of insulin: (7) EDGAR (obstructive sleep apnea): (8) Hyperlipemia: Qualifiers: Hyperlipidemia type: mixed hyperlipidemia Qualified Code(s): E78.2 - Mixed hyperlipidemia (9) Chronic diastolic (congestive) heart failure: Plan Patient's respiratory status worsening is secondary to multiple factors including obesity hypoventilation syndrome, diastolic congestive heart failure, obstructive sleep apnea and volume overload. We will need to decrease factors that can exacerbate his worsening volume status. His blood pressure is c urrently controlled. Heart rate is also under good control. Continue current medications. Renal function is stable and he is diuresing well. We will continue with current dose of diuretics for now. Weight loss will be most improtant factor in improving his respiratory status. Consider outpatient endocrinology assessment for weight loss therapies. Also can have assessment by bariatric surgery team for potential options. Thank you for involving us with care of this patient. We will continue to follow. Please call with questions. Attestations Medical Necessity Statement*: Care expected to cross 2 midnights. Coding Level of Care Code Acute Code for Chg Fwd Diagnoses Afib I48.91 Acute kidney injury N17.9 Acute on chronic respiratory failure J96.20 COPD exacerbation J44.1 CHF exacerbation I50.9 Diabetes mellitus with hyperglycemia, with long-term current use of insulin E11.65; Z79.4 EDGAR (obstructive sleep apnea) G47.33 Hyperlipemia E78.2 Hyperlipidemia type: mixed hyperlipidemia Chronic diastolic (congestive) heart failure I50.32
[2022-04-27] MEDS: amiodarone 200 mg Tablet PO (10:23)
[2022-04-27] MEDS: insulin lispro 100 unit/1 mL SUBCUT ×3 (10:23→17:06)
[2022-04-27] MEDS: BuSPIRONE 10 mg Tablet 15 MG PO ×2 (10:24→17:09)
[2022-04-27] MEDS: NON-FORMULARY MEDICATION (Colesevelam [Welchol] 625 mg tablet) 1875 EACH PO ×2 (10:24→17:17)
[2022-04-27] MEDS: atorvastatin 40 mg Tablet PO (10:24)
[2022-04-27] MEDS: amlodipine 10 mg Tablet PO (10:24)
[2022-04-27] MEDS: metOLazone 5 MG Tablet 2.5 MG PO (10:25)
[2022-04-27] MEDS: ferrous sulfate EC 325 mg Tablet PO ×2 (10:25→17:09)
[2022-04-27] MEDS: levothyroxine 175 mcg Tablet PO (10:25)
[2022-04-27] MEDS: hyDRALAzine 50 mg Tablet 100 MG PO ×3 (10:25→20:43)
[2022-04-27] MEDS: montelukast sodium 10 mg Tablet PO (10:26)
[2022-04-27] MEDS: rivaroxaban 10 mg Tablet 15 MG PO (10:26)
[2022-04-27] MEDS: predniSONE 20 mg Tablet 40 MG PO (10:27)
--- NOTE | 2022-04-27 10:28 | PC.NURSE ---
prednisone given before discontinue order put in. Medication scan did not save.
[2022-04-27 11:28] LABS: Glucose Point of Care 198 mg/dL (70-110)
[2022-04-27] MEDS: pantoprazole 40 mg SDV IVP ×2 (12:07→23:30)
[2022-04-27 17:35] LABS: Glucose Point of Care 248 mg/dL (70-110)
[2022-04-27] MEDS: ALPRAZolam 0.5 mg Tablet 0.25 MG PO (20:43)
[2022-04-27] MEDS: fenofibrate 145 mg Tablet PO (20:43)
[2022-04-27] MEDS: metoprolol tartrate 25 mg Tablet PO (20:43)
[2022-04-27] MEDS: trazodone 100 mg Tablet PO (20:43)
[2022-04-27 21:14] LABS: Glucose Point of Care 241 mg/dL (70-110)
[2022-04-28] VITALS (20 sets, daily range): BP systolic 110–140; BP diastolic 68–101; PULSE 73–99; RESP 18–28; TEMP 36.2–36.9; O2SAT 90–98
[2022-04-28] MEDS: ipratropium 0.5 mg/2.5 mL Neb INHALATION ×6 (00:03→20:01)
[2022-04-28] MEDS: albuterol 2.5 mg/3 mL Neb INHALATION ×6 (00:05→20:01)
[2022-04-28] MEDS: piperacillin-tazobactam 3.375 GM in sodium chloride 0.9% (plus) 50 ML IV ×3 (01:31→18:24)
[2022-04-28 03:40] LABS: Basophils % 0.3 %; Eosinophils % 0.1 %; Hematocrit 26.8 % (42.0-52.0); Hemoglobin 7.9 g/dL (11.7-16.6); Lymphocytes # 1.9 10^3/uL (0.8-4.8); Lymphocytes % 14.7 %; Mean Corpuscular HGB Conc 29.5 g/dL (30.0-36.0); Mean Corpuscular Hemoglobin 28.6 pg (28.0-34.0); Mean Corpuscular Volume 97.1 fl (80-94); Mean Platelet Volume 9.9 fL (7.4-10.4); Monocytes # 1.2 10^3/uL (0.2-0.9); Monocytes % 9.1 %; Neutrophils # 9.78 10^3/uL (1.8-7.7); Neutrophils % 75.5 %; Nucleated Red Blood Cells % 0 %; Platelet Count 381 10^3/cmm (130-400); Red Blood Count 2.76 10^6/uL (4.1-5.3); Red Cell Distribution Width 15.7 % (12.1-15.1)
[2022-04-28 04:03] LABS: Blood Urea Nitrogen 45 mg/dL (8-23); Calcium 8.5 mg/dL (8.5-10.5); Carbon Dioxide 30 mmol/L (22-29); Chloride 102 mmol/L (98-107); Glomerular Filtration Rate 34.1 mL/min (90-130); Glucose 159 mg/dL (65-115); Magnesium 2.6 mg/dL (1.7-2.3); Osmolality Calculated 305 mOsm/kg (285-295); Sodium 140 mmol/L (136-145)
[2022-04-28 04:27] LABS: Creatinine Clr Calc Pharmacy 70.1235
[2022-04-28] MEDS: bumetanide 0.25 mg/mL SDV 4 mL 1 MG IVP (05:45)
[2022-04-28] MEDS: venlafaxine ER (24HR) 150 mg Capsule PO (05:48)
[2022-04-28 07:16] LABS: Glucose Point of Care 150 mg/dL (70-110)
--- NOTE | 2022-04-28 08:09 | PM.PN ---
Subjective Subjective: Patient is feeling better. Diuresing well. Vitals/I&O/Wt Last Vital Signs Temp 98.4 F 04/28/22 04:00 Pulse 80 04/28/22 07:04 Resp 26 H 04/28/22 07:04 BP 115/68 04/28/22 07:04 Pulse Ox 94 04/28/22 04:06 O2 Del Method 04/28/22 04:06 O2 Flow Rate 15 04/24/22 05:46 FiO2 50 04/28/22 08:00 04/27/22 04/28/22 04/28/22 22:59 06:59 14:59 Intake Total 170 / 780 110 / 890 Output Total 2850 / 4700 450 / 5150 Balance -2680 / -3920 -340 / -4260 Weight last 48 hrs Weight 455 lb 3 oz Weight 455 lb 7.6 oz Weight 455 lb 7.6 oz Physical Exam Narrative: GENERAL: Patient is alert, awake and oriented x3. On bipap, comfortable] NECK: No jugular vein distension. [] HEENT: No cyanosis. No icterus. No pallor. [] HEART: Regular S1 and S2. No murmur, rub or gallop. [] LUNGS:Diminished breath sounds CENTRAL NERVOUS SYSTEM: Grossly nonfocal. [] EXTREMITIES: Lower extremities with 1+ edema bilaterally. Data 04/28/22 03:29 04/28/22 03:29 A&P Assessment and plan (1) Afib: (2) Acute kidney injury: (3) Acute on chronic respiratory failure: (4) COPD exacerbation: (5) CHF exacerbation: (6) Diabetes mellitus with hyperglycemia, with long-term current use of insulin: (7) EDGAR (obstructive sleep apnea): (8) Hyperlipemia: Qualifiers: Hyperlipidemia type: mixed hyperlipidemia Qualified Code(s): E78.2 - Mixed hyperlipidemia (9) Chronic diastolic (congestive) heart failure: Plan BUN has worsened slightly today. Diuresing well. We can downtitrate Bumex to 0.5mg BID and continue metolazone. Monitor I and Os closely. Weight loss will be most improtant factor in improving his respiratory status. Consider outpatient endocrinology assessment for weight loss therapies. Also can have assessment by bariatric surgery team for potential options. Thank you for involving us with care of this patient. We will continue to follow. Please call with questions. Attestations Medical Necessity Statement*: Care expected to cross 2 midnights. Coding Level of Care Code Acute Code for Chg Fwd Diagnoses Afib I48.91 Acute kidney injury N17.9 Acute on chronic respiratory failure J96.20 COPD exacerbation J44.1 CHF exacerbation I50.9 Diabetes mellitus with hyperglycemia, with long-term current use of insulin E11.65; Z79.4 EDGAR (obstructive sleep apnea) G47.33 Hyperlipemia E78.2 Hyperlipidemia type: mixed hyperlipidemia Chronic diastolic (congestive) heart failure I50.32
[2022-04-28] MEDS: budesonide 0.5 mg/2 mL Neb INHALATION ×2 (08:32→20:01)
[2022-04-28] MEDS: iron sucrose 200 MG in sodium chloride 0.9% (100 ml) 100 ML 220 MG IV (08:54)
[2022-04-28] MEDS: levothyroxine 175 mcg Tablet PO (08:57)
[2022-04-28] MEDS: amlodipine 10 mg Tablet PO (08:57)
[2022-04-28] MEDS: atorvastatin 40 mg Tablet PO (08:57)
[2022-04-28] MEDS: metOLazone 5 MG Tablet 2.5 MG PO (08:57)
[2022-04-28] MEDS: hyDRALAzine 50 mg Tablet 100 MG PO ×3 (08:58→20:28)
[2022-04-28] MEDS: ferrous sulfate EC 325 mg Tablet PO ×2 (08:58→18:24)
[2022-04-28] MEDS: montelukast sodium 10 mg Tablet PO (08:58)
[2022-04-28] MEDS: rivaroxaban 10 mg Tablet 15 MG PO (08:59)
[2022-04-28] MEDS: BuSPIRONE 10 mg Tablet 15 MG PO ×2 (08:59→18:24)
[2022-04-28] MEDS: bumetanide 0.25 mg/mL SDV 4 mL 0.5 MG IVP ×2 (09:03→20:23)
[2022-04-28] MEDS: NON-FORMULARY MEDICATION (Colesevelam [Welchol] 625 mg tablet) 1875 EACH PO ×2 (09:07→18:30)
[2022-04-28] MEDS: amiodarone 200 mg Tablet PO (09:07)
--- NOTE | 2022-04-28 09:20 | P.PN_ITS ---
Subjective Subjective: Julius reports that he feels about the same. Was able to be off his BiPAP for a short amount of time yesterday to eat, 20 minutes or so. During that time he was on 12 L nonrebreather. He denies any pain. 2500 negative in the last 24 hours Medications: Reviewed: Yes Vitals/I&O/Wt Last Vital Signs Temp 98.4 F 04/28/22 04:00 Pulse 83 04/28/22 08:40 Resp 23 H 04/28/22 08:00 BP 115/68 04/28/22 07:04 Pulse Ox 98 04/28/22 08:37 O2 Del Method 04/28/22 08:00 O2 Flow Rate 15 04/24/22 05:46 FiO2 50 04/28/22 08:37 04/27/22 04/28/22 04/28/22 22:59 06:59 14:59 Intake Total 170 / 780 110 / 890 240 / 240 Output Total 2850 / 4700 450 / 5150 Balance -2680 / -3920 -340 / -4260 240 / 240 Weight last 48 hrs Weight 206.47 kg Weight 206.6 kg Weight 206.6 kg Physical Exam Narrative: General exam is a white male, no distress on BiPAP with a current FiO2 of 50% Neck is supple Cardiovascular regular rate and rhythm without murmur Lungs diminished breath sounds bilaterally. No audible wheezing Abdomen is soft, obese. Bowel sounds evident. Still has some edema below his umbilicus exam demonstrates Jim[place] Extremities show evidence of venous stasis. No significant edema Skin no rash Data 04/28/22 03:29 04/28/22 03:29 A&P Assessment and plan (1) Acute on chronic respiratory failure: Patient presents with acute on chronic respiratory failure. He has a complicated presentation secondary to his morbid obesity, obesity hypoventilation, chronic COPD. His respiratory failure is multifactorial. Acute component may be secondary to pneumonia. Slow improvement, but may be stagnating. Down to about 50% FiO2 but when taken off yesterday evening to eat required 12 L . Doubt pneumonia is playing much into the picture currently. (2) Obesity hypoventilation syndrome: Has trilogy at home, continue BiPAP currently (3) Acute kidney injury: Likely has cardiorenal syndrome He continues to diurese. BUN is now starting to rise, and cardiology believes it is prudent to lower his Bumex dose slightly and continue to monitor. I concur. Creatinine is not yet at baseline, and this potentially could be his new baseline considering his need for diuretics Appreciate cardiology consultation, note that they have added Zaroxolyn low- dose. (4) Diabetes mellitus with hyperglycemia, with long-term current use of insulin: Sliding scale insulin Long-acting insulin discontinued secondary to risk of hypoglycemia (5) COPD exacerbation: He has completed his course of prednisone Continue DuoNeb every 4 hours Budesonide inhaled (6) CHF exacerbation: Continue diuresis, currently on Bumex 1 mg IV every 12 hours. Changed to 0.5 mg every 12 hours and continue to monitor electrolytes Echocardiogram was recently done. Appears to mainly have acute diastolic congestive heart failure Appreciate cardiology consultation. Zaroxolyn has been added. He has -10,600 so far this hospital course. (7) Afib: Continue patient's amiodarone. Rate controlled currently. On anticoagulation with rivaroxaban. Reduced to 15 mg daily secondary to renal function (8) Hyperkalemia: Resolved (9) Community acquired bilateral lower lobe pneumonia: Continue Zosyn, fourth day of Zosyn. Received Rocephin for 2 days prior, Z ithromax for 3 days total MRSA PCR negative Blood cultures negative COVID, influenza negative Plan Anemia, chronic. Continue close monitoring of hemoglobin. Known to have iron deficiency anemia and has been supplemented in the past. Has drifted slowly down during hospitalization. Iron infusion today. Other medical problems as outlined in past medical history Full code currently Xarelto will suffice for DVT prophylaxis Checking into possibility of [facility]. Considering his multiple comorbidities this may be the best chance he has for a better long-term outcome. He has had some improvement, but I suspect this will be short-lived if he does not get longer-term therapy in the hospital setting with weight loss. His quality of life has significantly decreased in the last year according to family, and currently he is requiring noninvasive ventilatory support near 24 hours a day. Without placement in the long-term care hospital placement for continued optimization, therapy, weight loss, I suspect he will soon restart his downward spiral. Attestations Medical Necessity Statement*: Needs continued hospitalization for further diuresis secondary to acute diastolic heart failure and IV antibiotics related to pneumonia. Coding Level of Care Code Acute Code for Chg Fwd Diagnoses Acute on chronic respiratory failure J96.20 Obesity hypoventilation syndrome E66.2 Acute kidney injury N17.9 Diabetes mellitus with hyperglycemia, with long-term current use of insulin E11.65; Z79.4 COPD exacerbation J44.1 CHF exacerbation I50.9 Afib I48.91 Hyperkalemia E87.5 Community acquired bilateral lower lobe pneumonia J18.9
[2022-04-28 11:31] LABS: Glucose Point of Care 164 mg/dL (70-110)
[2022-04-28] MEDS: insulin lispro 100 unit/1 mL SUBCUT ×2 (12:32→19:23)
[2022-04-28] MEDS: pantoprazole 40 mg SDV IVP (12:32)
--- NOTE | 2022-04-28 14:27 | PC.SOCIAL ---
IMM updated copy given to patient and copy placed in chart.
[2022-04-28 16:39] LABS: Glucose Point of Care 215 mg/dL (70-110)
[2022-04-28 19:24] LABS: Glucose Point of Care 225 mg/dL (70-110)
[2022-04-28] MEDS: metoprolol tartrate 25 mg Tablet PO (20:28)
[2022-04-28] MEDS: fenofibrate 145 mg Tablet PO (20:28)
[2022-04-28] MEDS: trazodone 100 mg Tablet PO (20:28)
[2022-04-28 20:47] LABS: Glucose Point of Care 230 mg/dL (70-110)
[2022-04-29] VITALS (23 sets, daily range): BP systolic 115–136; BP diastolic 64–83; PULSE 74–98; RESP 16–26; TEMP 36.4–36.7; O2SAT 83–98
[2022-04-29] MEDS: albuterol 2.5 mg/3 mL Neb INHALATION ×6 (00:11→19:59)
[2022-04-29] MEDS: ipratropium 0.5 mg/2.5 mL Neb INHALATION ×6 (00:11→20:05)
[2022-04-29] MEDS: pantoprazole 40 mg SDV IVP ×3 (00:14→23:55)
[2022-04-29] MEDS: piperacillin-tazobactam 3.375 GM in sodium chloride 0.9% (plus) 50 ML IV ×3 (02:23→17:32)
[2022-04-29] MEDS: venlafaxine ER (24HR) 150 mg Capsule PO (05:20)
[2022-04-29 05:29] LABS: Basophils # 0.1 10^3/uL (0.0-0.1); Basophils % 0.5 %; Eosinophils # 0.2 10^3/uL (0.0-0.8); Eosinophils % 1.5 %; Hematocrit 25.3 % (42.0-52.0); Hemoglobin 7.8 g/dL (11.7-16.6); Lymphocytes # 2.2 10^3/uL (0.8-4.8); Mean Corpuscular HGB Conc 30.8 g/dL (30.0-36.0); Mean Corpuscular Hemoglobin 28.9 pg (28.0-34.0); Mean Corpuscular Volume 93.7 fl (80-94); Mean Platelet Volume 11.3 fL (7.4-10.4); Monocytes # 1.3 10^3/uL (0.2-0.9); Neutrophils # 8.64 10^3/uL (1.8-7.7); Neutrophils % 69.4 %; Nucleated Red Blood Cells % 0 %; Platelet Count 224 10^3/cmm (130-400); Red Cell Distribution Width 15.4 % (12.1-15.1); White Blood Count 12.5 10^3/uL (4.0-10.0)
[2022-04-29 05:47] LABS: Blood Urea Nitrogen 44 mg/dL (8-23); Calcium 8.4 mg/dL (8.5-10.5); Carbon Dioxide 30 mmol/L (22-29); Chloride 102 mmol/L (98-107); Glomerular Filtration Rate 36.2 mL/min (90-130); Glucose 134 mg/dL (65-115); Magnesium 2.5 mg/dL (1.7-2.3); Osmolality Calculated 305 mOsm/kg (285-295); Sodium 141 mmol/L (136-145)
[2022-04-29 05:51] LABS: Anion Gap 13.5 (5-19); Potassium 4.5 mmol/L (3.5-5.1)
[2022-04-29 06:23] LABS: Slide Review Slide Review Perform
[2022-04-29 06:28] LABS: Glucose Point of Care 151 mg/dL (70-110)
[2022-04-29] MEDS: budesonide 0.5 mg/2 mL Neb INHALATION ×2 (07:41→19:59)
--- NOTE | 2022-04-29 07:46 | P.PN_ITS ---
Subjective Subjective: Patient is feeling better. Diuresing well. Vitals/I&O/Wt Last Vital Signs Temp 97.6 F 04/29/22 04:00 Pulse 84 04/29/22 07:42 Resp 25 H 04/29/22 07:42 BP 122/74 04/29/22 07:41 Pulse Ox 95 04/29/22 07:42 O2 Del Method 04/29/22 07:42 O2 Flow Rate 10 04/29/22 04:00 FiO2 50 04/29/22 07:42 04/28/22 04/29/22 04/29/22 22:59 06:59 14:59 Intake Total 330 / 970 240 / 1210 Output Total 2725 / 2725 1725 / 4450 Balance -2395 / -1755 -1485 / -3240 Weight last 48 hrs Weight 454 lb 12.8 oz Weight 455 lb 3 oz Physical Exam Narrative: GENERAL: Patient is alert, awake and oriented x3. On bipap, comfortable] NECK: No jugular vein distension. [] HEENT: No cyanosis. No icterus. No pallor. [] HEART: Regular S1 and S2. No murmur, rub or gallop. [] LUNGS:Diminished breath sounds CENTRAL NERVOUS SYSTEM: Grossly nonfocal. [] EXTREMITIES: Lower extremities with 1+ edema bilaterally. Data 04/29/22 04:57 04/29/22 04:57 Micro: Microbiology 04/23/22 18:50 Blood Culture - Final Blood NO GROWTH AFTER 5 DAYS 04/23/22 18:54 Blood Culture - Final Blood NO GROWTH AFTER 5 DAYS A&P Assessment and plan (1) Afib: (2) Acute kidney injury: (3) Acute on chronic respiratory failure: (4) COPD exacerbation: (5) CHF exacerbation: (6) Diabetes mellitus with hyperglycemia, with long-term current use of insulin: (7) EDGAR (obstructive sleep apnea): (8) Hyperlipemia: Qualifiers: Hyperlipidemia type: mixed hyperlipidemia Qualified Code(s): E78.2 - Mixed hyperlipidemia (9) Chronic diastolic (congestive) heart failure: Plan Patient is diuresing well even at lower dose of Bumex. Currently on Bumex 0.5 mg twice daily and metolazone. Continue. Monitor renal function and I and Os Weight loss will be most improtant factor in improving his respiratory status. Consider outpatient endocrinology assessment for weight loss therapies. Also can have assessment by bariatric surgery team for potential options. Thank you for involving us with care of this patient. Please call with [employer]. Attestations Medical Necessity Statement*: Care expected to cross 2 midnights. Coding Level of Care Code Acute Code for Chg Fwd Diagnoses Afib I48.91 Acute kidney injury N17.9 Acute on chronic respiratory failure J96.20 COPD exacerbation J44.1 CHF exacerbation I50.9 Diabetes mellitus with hyperglycemia, with long-term current use of insulin E11.65; Z79.4 EDGAR (obstructive sleep apnea) G47.33 Hyperlipemia E78.2 Hyperlipidemia type: mixed hyperlipidemia Chronic diastolic (congestive) heart failure I50.32
[2022-04-29] MEDS: insulin lispro 100 unit/1 mL SUBCUT ×3 (09:16→16:50)
[2022-04-29] MEDS: BuSPIRONE 10 mg Tablet 15 MG PO ×2 (09:17→16:52)
[2022-04-29] MEDS: hyDRALAzine 50 mg Tablet 100 MG PO ×3 (09:17→21:26)
[2022-04-29] MEDS: bumetanide 0.25 mg/mL SDV 4 mL 0.5 MG IVP ×2 (09:17→19:30)
[2022-04-29] MEDS: metOLazone 5 MG Tablet 2.5 MG PO (09:18)
[2022-04-29] MEDS: atorvastatin 40 mg Tablet PO (09:18)
[2022-04-29] MEDS: ferrous sulfate EC 325 mg Tablet PO ×2 (09:18→16:51)
[2022-04-29] MEDS: rivaroxaban 10 mg Tablet 15 MG PO (09:18)
[2022-04-29] MEDS: amlodipine 10 mg Tablet PO (09:19)
[2022-04-29] MEDS: levothyroxine 175 mcg Tablet PO (09:19)
[2022-04-29] MEDS: montelukast sodium 10 mg Tablet PO (09:19)
[2022-04-29] MEDS: amiodarone 200 mg Tablet PO (09:19)
[2022-04-29] MEDS: metoprolol tartrate 25 mg Tablet PO ×2 (09:41→21:26)
[2022-04-29] MEDS: NON-FORMULARY MEDICATION (Colesevelam [Welchol] 625 mg tablet) 1875 EACH PO ×2 (09:41→18:33)
[2022-04-29 11:47] LABS: Glucose Point of Care 196 mg/dL (70-110)
--- NOTE | 2022-04-29 15:08 | P.PN_ITS ---
Subjective Subjective: Hospital course, labs appreciated. On examination seen with family at bedside. Patient is on BiPAP. As per the patient is mostly on BiPAP except when he is eating at that time he is able to stay on 10 to 12 L of oxygen supplementation. Denies any nausea, vomiting, headache. Documented ur ine output of over 14 L negative since admission and documented 4 L negative since yesterday. Medications: Reviewed: Yes Vitals/I&O/Wt Last Vital Signs Temp 97.6 F 04/29/22 04:00 Pulse 88 04/29/22 14:33 Resp 16 04/29/22 12:00 BP 129/76 04/29/22 12:00 Pulse Ox 83 L 04/29/22 14:33 O2 Del Method 04/29/22 11:51 O2 Flow Rate 10 04/29/22 11:51 FiO2 50 04/29/22 14:33 04/29/22 04/29/22 04/29/22 06:59 14:59 22:59 Intake Total 240 / 1210 330.000 / 330.000 Output Total 1725 / 4450 1150 / 1150 Balance -1485 / -3240 -820.000 / -820.000 Weight last 48 hrs Weight 206.294 kg Weight 206.47 kg Physical Exam Narrative: General exam is a white male, no distress on BiPAP with a current FiO2 of 50% Neck is supple Cardiovascular regular rate and rhythm without murmur Lungs diminished breath sounds bilaterally. No audible wheezing Abdomen is soft, obese. Bowel sounds evident. Still has some edema below his umbilicus exam demonstrates Jiménez Extremities show evidence of venous stasis. No significant edema Skin no rash Data 04/29/22 04:57 04/29/22 04:57 Micro: Microbiology 04/23/22 18:50 Blood Culture - Final Blood NO GROWTH AFTER 5 DAYS 04/23/22 18:54 Blood Culture - Final Blood NO GROWTH AFTER 5 DAYS A&P Assessment and plan (1) Acute on chronic respiratory failure: Patient presents with acute on chronic respiratory failure. He has a complicated presentation secondary to his morbid obesity, obesity hypoventilation, chronic COPD. His respiratory failure is multifactorial. Acute component may be secondary to pneumonia. Slow improvement, but may be stagnating. Down to about 50% FiO2 but when taken off yesterday evening to eat required 12 L . Doubt pneumonia is playing much into the picture currently. (2) Obesity hypoventilation syndrome: Has trilogy at home, continue BiPAP currently (3) Acute kidney injury: Likely has cardiorenal syndrome He continues to diurese. BUN is now starting to rise, and cardiology believes it is prudent to lower his Bumex dose slightly and continue to monitor. I concur. Creatinine is not yet at baseline, and this potentially could be his new bas marcus considering his need for diuretics Appreciate cardiology consultation, note that they have added Zaroxolyn low- dose. (4) Diabetes mellitus with hyperglycemia, with long-term current use of insulin: Sliding scale insulin Long-acting insulin discontinued secondary to risk of hypoglycemia (5) COPD exacerbation: He has completed his course of prednisone Continue DuoNeb every 4 hours Budesonide inhaled (6) CHF exacerbation: Continue diuresis, currently on Bumex 1 mg IV every 12 hours. Changed to 0.5 mg every 12 hours and continue to monitor electrolytes Echocardiogram was recently done. Appears to mainly have acute diastolic congestive heart failure Appreciate cardiology consultation. Zaroxolyn has been added. He has -10,600 so far this hospital course. (7) Afib: Continue patient's amiodarone. Rate controlled currently. On anticoagulation with rivaroxaban. Reduced to 15 mg daily secondary to renal function (8) Hyperkalemia: Resolved (9) Community acquired bilateral lower lobe pneumonia: Continue Zosyn, fourth day of Zosyn. Received Rocephin for 2 days prior, Zithromax for 3 days total MRSA PCR negative Blood cultures negative COVID, influenza negative Plan Anemia, chronic. Continue close monitoring of hemoglobin. Known to have iron deficiency anemia and has been supplemented in the past. Has drifted slowly down during hospitalization. Iron infusion today. Other medical problems as outlined in past medical history Full code currently Xarelto will suffice for DVT prophylaxis Checking into possibility of [facility]. Considering his multiple comorbidities this may be the best chance he has for a better long-term outcome. He has had some improvement, but I suspect this will be short-lived if he does not get longer-term therapy in the hospital setting with weight loss. His quality of life has significantly decreased in the last year according to family, and currently he is requiring noninvasive ventilatory support near 24 hours a day. Without placement in the long-term care hospital placement for continued optimization, therapy, weight loss, I suspect he will soon restart his downward spiral. Plan for the day: Continue with ipratropium, Xopenex, budesonide. Oxygen supplementation keeping saturation over 88%. Patient is down to 10 L bleeding in of oxygen to BiPAP. Will try with home trilogy to see if patient is able to tolerate the transition for short while. Respiratory failure most likely multifactorial but cannot rule out mild underlying COPD exacerbation as well. Will give a trial of starting Solu-Medrol 40 mg IV every 6 hourly. Continue with Zosyn to finish 7-day course. Continue with current diuresis. BMP stable. Attestations Medical Necessity Statement*: Requires further hospitalization for management of respiratory failure in setting of obstructive sleep apnea, COPD, diastolic congestive heart failure as patient remains BiPAP dependent and is awaiting safe discharge planning for long-term rehabitation as patient is at a high risk of worsening at home and even . Time Spent in Patient Care: Greater than 35 minutes Coding Level of Care Code Acute Code for [facility] Diagnoses Acute on chronic respiratory failure J96.20 Obesity hypoventilation syndrome E66.2 Acute kidney injury N17.9 Diabetes mellitus with hyperglycemia, with long-term current use of insulin E11.65; Z79.4 COPD exacerbation J44.1 CHF exacerbation I50.9 Afib I48.91 Hyperkalemia E87.5 Community acquired bilateral lower lobe pneumonia J18.9
--- NOTE | 2022-04-29 15:43 | PC.NURSE ---
New 20 gauge IV started to right AC. Pt tolerated well.
[2022-04-29 16:39] LABS: Glucose Point of Care 213 mg/dL (70-110)
--- NOTE | 2022-04-29 19:33 | PC.NURSE ---
Spoke with regarding patient had BM with small amount of blood in it. Patient H&H has been dropping 7.8/25.3 today. ordered to send stool for occult blood and hold next dose of xaralto.
[2022-04-29] MEDS: trazodone 100 mg Tablet PO (21:26)
[2022-04-29] MEDS: fenofibrate 145 mg Tablet PO (21:26)
[2022-04-29 21:57] LABS: Glucose Point of Care 265 mg/dL (70-110)
[2022-04-30] VITALS (24 sets, daily range): BP systolic 118–176; BP diastolic 63–96; PULSE 67–85; RESP 15–32; TEMP 36.3–36.9; O2SAT 87–94
[2022-04-30] MEDS: albuterol 2.5 mg/3 mL Neb INHALATION ×6 (00:28→19:47)
[2022-04-30] MEDS: ipratropium 0.5 mg/2.5 mL Neb INHALATION ×6 (00:28→19:47)
[2022-04-30] MEDS: piperacillin-tazobactam 3.375 GM in sodium chloride 0.9% (plus) 50 ML IV ×3 (02:44→17:05)
[2022-04-30] MEDS: venlafaxine ER (24HR) 150 mg Capsule PO (05:39)
[2022-04-30 06:45] LABS: Glucose Point of Care 249 mg/dL (70-110)
[2022-04-30] MEDS: budesonide 0.5 mg/2 mL Neb INHALATION ×2 (07:39→19:47)
[2022-04-30] MEDS: bumetanide 0.25 mg/mL SDV 4 mL 0.5 MG IVP ×2 (08:31→20:58)
[2022-04-30] MEDS: BuSPIRONE 10 mg Tablet 15 MG PO ×2 (08:31→16:41)
[2022-04-30] MEDS: metOLazone 5 MG Tablet 2.5 MG PO (08:31)
[2022-04-30] MEDS: amiodarone 200 mg Tablet PO (08:32)
[2022-04-30] MEDS: hyDRALAzine 50 mg Tablet 100 MG PO ×3 (08:32→20:57)
[2022-04-30] MEDS: montelukast sodium 10 mg Tablet PO (08:32)
[2022-04-30] MEDS: ferrous sulfate EC 325 mg Tablet PO ×2 (08:32→16:41)
[2022-04-30] MEDS: levothyroxine 175 mcg Tablet PO (08:32)
[2022-04-30] MEDS: amlodipine 10 mg Tablet PO (08:33)
[2022-04-30] MEDS: insulin lispro 100 unit/1 mL SUBCUT ×3 (08:33→16:55)
[2022-04-30] MEDS: atorvastatin 40 mg Tablet PO (08:33)
--- NOTE | 2022-04-30 08:42 | PM.PN ---
Subjective Subjective: Patient is stable. No complaints of chest pain. Vitals/I&O/Wt Last Vital Signs Temp 98.3 F 04/30/22 03:29 Pulse 73 04/30/22 07:40 Resp 24 H 04/30/22 07:40 BP 118/66 04/30/22 03:29 Pulse Ox 91 04/30/22 07:40 O2 Del Method 04/30/22 07:40 O2 Flow Rate 10 04/29/22 11:51 FiO2 60 04/30/22 07:40 04/29/22 04/30/22 04/30/22 22:59 06:59 14:59 Intake Total 430 / 760.000 50 / 50 Output Total 2750 / 3900 825 / 4725 Balance -2320 / -3140.000 -825 / -3965.000 50 / 50 Weight last 48 hrs Weight 410 lb 0.6 oz Weight 413 lb 7 oz Weight 454 lb 12.8 oz Physical Exam Narrative: GENERAL: Patient is alert, awake and oriented x3. On bipap, comfortable] NECK: No jugular vein distension. [] HEENT: No cyanosis. No icterus. No pallor. [] HEART: Regular S1 and S2. No murmur, rub or gallop. [] LUNGS:Diminished breath sounds CENTRAL NERVOUS SYSTEM: Grossly nonfocal. [] EXTREMITIES: Lower extremities with 1+ edema bilaterally. Data 04/29/22 04:57 04/29/22 04:57 Micro: Microbiology 04/29/22 19:38 Occult Blood (FIT) - Final Stool - Stool Aspirate A&P Assessment and plan (1) Afib: (2) Acute kidney injury: (3) Acute on chronic respiratory failure: (4) COPD exacerbation: (5) CHF exacerbation: (6) Diabetes mellitus with hyperglycemia, with long-term current use of insulin: (7) EDGAR (obstructive sleep apnea): (8) Hyperlipemia: Qualifiers: Hyperlipidemia type: mixed hyperlipidemia Qualified Code(s): E78.2 - Mixed hyperlipidemia (9) Chronic diastolic (congestive) heart failure: Plan Continue Bumex 0.5mg IV BID till he is in hospital. Continue metolazone. Strict I and Os Receiving blood today. Weight loss will be most improtant factor in improving his respiratory status. Consider outpatient endocrinology assessment for weight loss therapies. Also can have assessment by bariatric surgery team for potential options. Thank you for involving us with care of this patient. Please call with questions. Attestations Medical Necessity Statement*: Care expected to cross 2 midnights. Coding Level of Care Code Acute Code for Chg Fwd Diagnoses Afib I48.91 Acute kidney injury N17.9 Acute on chronic respiratory failure J96.20 COPD exacerbation J44.1 CHF exacerbation I50.9 Diabetes mellitus with hyperglycemia, with long-term current use of insulin E11.65; Z79.4 EDGAR (obstructive sleep apnea) G47.33 Hyperlipemia E78.2 Hyperlipidemia type: mixed hyperlipidemia Chronic diastolic (congestive) heart failure I50.32
[2022-04-30] MEDS: metoprolol tartrate 25 mg Tablet PO ×2 (08:50→20:58)
[2022-04-30] MEDS: NON-FORMULARY MEDICATION (Colesevelam [Welchol] 625 mg tablet) 1875 EACH PO (08:50)
[2022-04-30 11:38] LABS: Alanine Aminotransferase 11 U/L (0-41); Albumin Level 3.3 g/dL (3.5-5.2); Alkaline Phosphatase 58 U/L (40-130); Aspartate Amino Transferase 14 U/L (0-40); Blood Urea Nitrogen 48 mg/dL (8-23); Calcium 8.8 mg/dL (8.5-10.5); Carbon Dioxide 31 mmol/L (22-29); Chloride 97 mmol/L (98-107); Globulin 3.7 g/dL (1.3-4.6); Glomerular Filtration Rate 36.2 mL/min (90-130); Glucose 292 mg/dL (65-115); Osmolality Calculated 307 mOsm/kg (285-295); Sodium 137 mmol/L (136-145); Total Bilirubin 0.3 mg/dL (0.15-1.2)
--- NOTE | 2022-04-30 11:44 | PC.NURSE ---
pt has been up in chair for 1 hour and 15 minutes thus far. Tolerating well.
[2022-04-30 11:52] LABS: Glucose Point of Care 327 mg/dL (70-110)
[2022-04-30 11:52] LABS: Vitamin B12 290 pg/mL (232-1245)
[2022-04-30 11:53] LABS: Folate Level 6.9 ng/mL (4.5-32.2)
[2022-04-30] MEDS: pantoprazole 40 mg SDV IVP (12:03)
[2022-04-30] MEDS: sodium chloride 0.9% 100 ML IV (14:30)
--- NOTE | 2022-04-30 14:41 | PC.NURSE ---
PRBCs infusing. Pt tolerating well thus far. Voices no c/o pain or SOB. Will cont. to monitor.
--- NOTE | 2022-04-30 14:44 | P.PN_ITS ---
Subjective Subjective: No acute events overnight. Denies any nausea, vomiting, headache. Today morning on examination laying comfortably in bed on BiPAP. Yesterday tried to put him on home trilogy machine but he could not tolerate for more than 1 hour after which she was placed back on BiPAP. Overnight has been on BiPAP at 60%. Today morning during meals was able to turn down to 10 L of high flow nasal cannula. Documented urine output of over 5 L. Medications: Reviewed: Yes Vitals/I&O/Wt Last Vital Signs Temp 98.1 F 04/30/22 14:43 Pulse 76 04/30/22 14:43 Resp 19 H 04/30/22 14:43 BP 161/69 04/30/22 14:43 Pulse Ox 88 L 04/30/22 13:10 O2 Del Method 04/30/22 13:10 O2 Flow Rate 10 04/30/22 13:10 FiO2 60 04/30/22 12:00 04/29/22 04/30/22 04/30/22 22:59 06:59 14:59 Intake Total 430 / 760.000 530 / 530 Output Total 2750 / 3900 825 / 4725 1650 / 1650 Balance -2320 / -3140.000 -825 / -3965.000 -1120 / -1120 Weight last 48 hrs Weight 185.99 kg Weight 187.532 kg Weight 206.294 kg Physical Exam Narrative: General exam is a white male, no distress on BiPAP with a current FiO2 of 50% Neck is supple Cardiovascular regular rate and rhythm without murmur Lungs diminished breath sounds bilaterally. No audible wheezing Abdomen is soft, obese. Bowel sounds evident. Still has some edema below his umbilicus exam demonstrates Jiménez Extremities show evidence of venous stasis. No significant edema Skin no rash Data 04/29/22 04:57 04/30/22 10:33 Micro: Microbiology 04/29/22 19:38 Occult Blood (FIT) - Final Stool - Stool Aspirate A&P Assessment and plan (1) Acute on chronic respiratory failure: Patient presents with acute on chronic respiratory failure. He has a complicated presentation secondary to his morbid obesity, obesity hypo ventilation, chronic COPD. His respiratory failure is multifactorial. Acute component may be secondary to pneumonia. Slow improvement, but may be stagnating. Down to about 50% FiO2 but when taken off yesterday evening to eat required 12 L . Doubt pneumonia is playing much into the picture currently. (2) Obesity hypoventilation syndrome: Has trilogy at home, continue BiPAP currently (3) Acute kidney injury: Likely has cardiorenal syndrome He continues to diurese. BUN is now starting to rise, and cardiology believes it is prudent to lower his Bumex dose slightly and continue to monitor. I concur. Creatinine is not yet at baseline, and this potentially could be his new baseline considering his need for diuretics Appreciate cardiology consultation, note that they have added Zaroxolyn low- dose. (4) Diabetes mellitus with hyperglycemia, with long-term current use of insulin: Sliding scale insulin Long-acting insulin discontinued secondary to risk of hypoglycemia (5) COPD exacerbation: He has completed his course of prednisone Continue DuoNeb every 4 hours Budesonide inhaled (6) CHF exacerbation: Continue diuresis, currently on Bumex 1 mg IV every 12 hours. Changed to 0.5 mg every 12 hours and continue to monitor electrolytes Echocardiogram was recently done. Appears to mainly have acute diastolic congestive heart failure Appreciate cardiology consultation. Zaroxolyn has been added. He has -10,600 so far this hospital course. (7) Afib: Continue patient's amiodarone. Rate controlled currently. On anticoagulation with rivaroxaban. Reduced to 15 mg daily secondary to renal function (8) Hyperkalemia: Resolved (9) Community acquired bilateral lower lobe pneumonia: Continue Zosyn, fourth day of Zosyn. Received Rocephin for 2 days prior, Zithromax for 3 days total MRSA PCR negative Blood cultures negative COVID, influenza negative Plan Anemia, chronic. Continue close monitoring of hemoglobin. Known to have iron deficiency anemia and has been supplemented in the past. Has drifted slowly down during hospitalization. Iron infusion today. Other medical problems as outlined in past medical history Full code currently Xarelto will suffice for DVT prophylaxis Checking into possibility of [facility]. Considering his multiple comorbidities this may be the best chance he has for a better long-term outcome. He has had some improvement, but I suspect this will be short-lived if he does not get longer-term therapy in the hospital setting with weight loss. His quality of life has significantly decreased in the last year according to family, and currently he is requiring noninvasive ventilatory support near 24 hours a day. Without placement in the long-term care hospital placement for continued optimization, therapy, weight loss, I suspect he will soon restart his downward spiral. Plan for the day: Continue with BiPAP ventilation. Wean off as possible. Out of bed to chair. Plan to sit in the chair for most part of the day. Aggressive pulmonary toilet. Given history of diastolic heart failure, severe obstructive sleep apnea with patient being BiPAP dependent will try to keep hemoglobin over 8. Transfuse 1 unit. Check vitamin B12, folate levels. Baseline iron deficiency. Continue with oral iron supplementation. Cyanocobalamin IM followed by 500 mcg daily. Continue with current dose of Solu-Medrol, relation treatment. BMP stable. Continue with current diuresis. Overall 19 L negative. Attestations Medical Necessity Statement*: Requires further hospitalization for respiratory failure as patient is BiPAP dependent in setting of obesity hypoventilation syndrome, diastolic heart failure while safe discharge planning is sought as patient is at high risk of worsening breathing status and even . Time Spent in Patient Care: Greater than 35 minutes Coding Level of Care Code Acute Code for [facility] Fwd Diagnoses Acute on chronic respiratory failure J96.20 Obesity hypoventilation syndrome E66.2 Acute kidney injury N17.9 Diabetes mellitus with hyperglycemia, with long-term current use of insulin E11.65; Z79.4 COPD exacerbation J44.1 CHF exacerbation I50.9 Afib I48.91 Hyperkalemia E87.5 Community acquired bilateral lower lobe pneumonia J18.9
[2022-04-30] MEDS: cyanocobalamin 1,000 mcg/mL SDV 1000 MCG IM (14:54)
--- NOTE | 2022-04-30 15:12 | PC.NURSE ---
Pt cont to tolerate infusion of packed RBCs well.
[2022-04-30 16:52] LABS: Glucose Point of Care 332 mg/dL (70-110)
--- NOTE | 2022-04-30 17:56 | PC.NURSE ---
Blood transfusion complete at 1630. No adverse reactions noted. Pt tolerated well. Will cont. to monitor.
--- NOTE | 2022-04-30 18:00 | PC.NURSE ---
Pt has had a total of 750ml this shift and output of 4225
[2022-04-30] MEDS: fenofibrate 145 mg Tablet PO (20:58)
[2022-04-30] MEDS: trazodone 100 mg Tablet PO (20:58)
[2022-04-30 21:17] LABS: Glucose Point of Care 294 mg/dL (70-110)
[2022-05-01] VITALS (23 sets, daily range): BP systolic 129–167; BP diastolic 65–87; PULSE 70–92; RESP 17–35; TEMP 36.5–36.7; O2SAT 85–96
[2022-05-01] MEDS: ipratropium 0.5 mg/2.5 mL Neb INHALATION ×6 (00:23→19:57)
[2022-05-01] MEDS: albuterol 2.5 mg/3 mL Neb INHALATION ×6 (00:23→19:58)
[2022-05-01] MEDS: piperacillin-tazobactam 3.375 GM in sodium chloride 0.9% (plus) 50 ML IV ×3 (00:51→23:24)
[2022-05-01] MEDS: pantoprazole 40 mg SDV IVP ×3 (00:51→23:23)
[2022-05-01 04:31] LABS: Basophils % 0.1 %; Hematocrit 30.4 % (42.0-52.0); Hemoglobin 8.9 g/dL (11.7-16.6); Lymphocytes % 5.8 %; Mean Corpuscular HGB Conc 29.3 g/dL (30.0-36.0); Mean Corpuscular Hemoglobin 28.1 pg (28.0-34.0); Mean Corpuscular Volume 95.9 fl (80-94); Mean Platelet Volume 10.4 fL (7.4-10.4); Monocytes # 0.7 10^3/uL (0.2-0.9); Monocytes % 4.2 %; Neutrophils # 15.12 10^3/uL (1.8-7.7); Neutrophils % 89.1 %; Nucleated Red Blood Cells % 0 %; Platelet Count 384 10^3/cmm (130-400); Red Blood Count 3.17 10^6/uL (4.1-5.3); Red Cell Distribution Width 15.5 % (12.1-15.1)
[2022-05-01 04:54] LABS: Alanine Aminotransferase 10 U/L (0-41); Albumin Level 3.3 g/dL (3.5-5.2); Alkaline Phosphatase 60 U/L (40-130); Anion Gap 15.3 (5-19); Aspartate Amino Transferase 16 U/L (0-40); Blood Urea Nitrogen 48 mg/dL (8-23); Calcium 8.7 mg/dL (8.5-10.5); Carbon Dioxide 29 mmol/L (22-29); Chloride 99 mmol/L (98-107); Globulin 3.4 g/dL (1.3-4.6); Glomerular Filtration Rate 38.6 mL/min (90-130); Glucose 233 mg/dL (65-115); Osmolality Calculated 308 mOsm/kg (285-295); Potassium 4.3 mmol/L (3.5-5.1); Sodium 139 mmol/L (136-145); Total Bilirubin 0.3 mg/dL (0.15-1.2); Total Protein 6.7 g/dL (6.6-8.7)
[2022-05-01 06:48] LABS: Glucose Point of Care 268 mg/dL (70-110)
[2022-05-01] MEDS: budesonide 0.5 mg/2 mL Neb INHALATION ×2 (08:10→19:57)
[2022-05-01] MEDS: amlodipine 10 mg Tablet PO (08:30)
[2022-05-01] MEDS: ferrous sulfate EC 325 mg Tablet PO ×2 (08:31→17:13)
[2022-05-01] MEDS: amiodarone 200 mg Tablet PO (08:31)
[2022-05-01] MEDS: BuSPIRONE 10 mg Tablet 15 MG PO ×2 (08:31→17:13)
[2022-05-01] MEDS: montelukast sodium 10 mg Tablet PO (08:31)
[2022-05-01] MEDS: sennosides-docusate Tablet 1 TAB PO ×2 (08:31→17:14)
[2022-05-01] MEDS: hyDRALAzine 50 mg Tablet 100 MG PO ×3 (08:31→20:04)
[2022-05-01] MEDS: cyanocobalamin 1,000 mcg Tablet 500 MCG PO (08:31)
[2022-05-01] MEDS: levothyroxine 175 mcg Tablet PO (08:32)
[2022-05-01] MEDS: atorvastatin 40 mg Tablet PO (08:32)
[2022-05-01] MEDS: bumetanide 0.25 mg/mL SDV 4 mL 0.5 MG IVP ×2 (08:32→20:04)
[2022-05-01] MEDS: metOLazone 5 MG Tablet 2.5 MG PO (08:32)
[2022-05-01] MEDS: NON-FORMULARY MEDICATION (Colesevelam [Welchol] 625 mg tablet) 1875 EACH PO ×2 (08:33→17:51)
[2022-05-01] MEDS: insulin lispro 100 unit/1 mL SUBCUT ×3 (08:33→17:14)
--- NOTE | 2022-05-01 09:00 | PM.PN ---
Subjective Subjective: Patient is doing well. Diuresing well. Vitals/I&O/Wt Last Vital Signs Temp 98.1 F 04/30/22 17:00 Pulse 80 05/01/22 08:15 Resp 30 H 05/01/22 08:10 BP 129/74 05/01/22 01:00 Pulse Ox 93 05/01/22 08:13 O2 Del Method 05/01/22 08:10 O2 Flow Rate 10 04/30/22 16:34 FiO2 60 05/01/22 08:13 04/30/22 05/01/22 05/01/22 22:59 06:59 14:59 Intake Total 760 / 1340 Output Total 2640 / 4290 Balance 760 / -310 -2640 / -2950 Weight last 48 hrs Weight 44 lb Weight 410 lb 0.6 oz Weight 413 lb 7 oz Physical Exam Narrative: GENERAL: Patient is alert, awake and oriented x3. On bipap, comfortable] NECK: No jugular vein distension. [] HEENT: No cyanosis. No icterus. No pallor. [] HEART: Regular S1 and S2. No murmur, rub or gallop. [] LUNGS:Diminished breath sounds CENTRAL NERVOUS SYSTEM: Grossly nonfocal. [] EXTREMITIES: Lower extremities with 1+ edema bilaterally. Data 05/01/22 03:21 05/01/22 03:21 A&P Assessment and plan (1) Afib: (2) Acute kidney injury: (3) Acute on chronic respiratory failure: (4) COPD exacerbation: (5) CHF exacerbation: (6) Diabetes mellitus with hyperglycemia, with long-term current use of insulin: (7) EDGAR (obstructive sleep apnea): (8) Hyperlipemia: Qualifiers: Hyperlipidemia type: mixed hyperlipidemia Qualified Code(s): E78.2 - Mixed hyperlipidemia (9) Chronic diastolic (congestive) heart failure: Plan Continue bumex and metolazone. Patient continues diuresing well. HgB is stable Weight loss will be most improtant factor in improving his respiratory status. Consider outpatient endocrinology assessment for weight loss therapies. Also can have assessment by bariatric surgery team for potential options. Thank you for involving us with care of this patient. Please call with questions. Attestations Medical Necessity Statement*: Care expected to cross 2 midnights. Coding Level of Care Code Acute Code for [facility] Fwd Diagnoses Afib I48.91 Acute kidney injury N17.9 Acute on chronic respiratory failure J96.20 COPD exacerbation J44.1 CHF exacerbation I50.9 Diabetes mellitus with hyperglycemia, with long-term current use of insulin E11.65; Z79.4 EDGAR (obstructive sleep apnea) G47.33 Hyperlipemia E78.2 Hyperlipidemia type: mixed hyperlipidemia Chronic diastolic (congestive) heart failure I50.32
[2022-05-01] MEDS: rivaroxaban 10 mg Tablet 15 MG PO (10:02)
[2022-05-01] MEDS: metoprolol tartrate 25 mg Tablet PO ×2 (10:03→20:04)
[2022-05-01 11:23] LABS: Glucose Point of Care 363 mg/dL (70-110)
--- NOTE | 2022-05-01 12:25 | P.PN_ITS ---
Subjective Subjective: Patient was seen and examined this morning, denied any chest pain, worsening shortness of breath. His labs and vitals have been reviewed. Medications: Reviewed: Yes Medication Review Details: Generic Name Dose Route Start Last Admin Trade Name Ochoa PRN Reason Stop Dose Admin Albuterol Sulfate 2.5 mg 04/24/22 16:00 05/01/22 11:00 Albuterol 2.5 Mg /3 Ml Neb INHALATION 2.5 mg Q4H.RESPIRATORY S [facility] Administration Amiodarone HCl 200 mg 04/24/22 09:00 05/01/22 08:31 Amiodarone 200 M g Tablet PO 200 mg DAILY SANTA Administration Amlodipine Besylat e 10 mg 04/24/22 09:00 05/01/22 08:30 Amlodipine 10 Mg Tablet PO 10 mg DAILY SANTA Administration Atorvastatin Calci um 40 mg 04/24/22 09:00 05/01/22 08:32 Atorvastatin 40 Mg Tablet PO 40 mg DAILY [facility]A Administration Budesonide 0.5 mg 04/24/22 08:00 05/01/22 08:10 Budesonide 0.5 M g/2 Ml Neb INHALATION 0.5 mg BID.RESPIRATORY S CH Administration Bumetanide 0.5 mg 04/28/22 08:30 05/01/22 08:32 Bumetanide 0.25 Mg/Ml Sdv 4 Ml IVP 0.5 mg Q12H SANTA Administration Buspirone HCl 15 mg 04/24/22 09:00 05/01/22 08:31 Buspirone 10 Mg Tablet PO 15 mg BID SANTA Administration Cyanocobalamin 500 mcg 05/01/22 09:00 05/01/22 08:31 Cyanocobalamin 1 ,000 Mcg Tablet PO 500 mcg DAILY [facility] Administration Denture Adhesive 1 each 04/25/22 17:39 04/25/22 19:11 Efferdent Efferv escent DENTAL 1 each PRN PRN Administration cleaning dentures Fenofibrate 145 mg 04/24/22 21:00 04/30/22 20:58 Fenofibrate 145 Mg Tablet PO 145 mg BEDTIME SANTA Administration Ferrous Sulfate 325 mg 04/24/22 09:00 05/01/22 08:31 Ferrous Sulfate Ec 325 Mg Tablet PO 325 mg BID S[facility]A Administration Hydralazine HCl 100 mg 04/24/22 09:00 05/01/22 08:31 Hydralazine 50 M g Tablet PO 100 mg TID SANTA Administration Insulin Human Lisp ro 0 unit 04/24/22 08:00 05/01/22 11:32 Insulin Lispro 1 00 Unit/1 Ml SUBCUT 12 unit TIDWM SANTA Administration Protocol Ipratropium Bromid e 0.5 mg 04/24/22 16:00 05/01/22 11:00 Ipratropium 0.5 Mg/2.5 Ml Neb INHALATION 0.5 mg Q4H.RESPIRATORY S CH Administration Levothyroxine Sodi um 175 mcg 04/24/22 09:00 05/01/22 08:32 Levothyroxine 17 5 Mcg Tablet PO 175 mcg DAILY [facility] Administration Methylprednisolone Sodium Succinate 40 mg 04/29/22 09:45 05/01/22 10:03 Methylprednisolo ne Sod Succ 40 Mg/ Ml Inj IVP 40 mg Q6H [facility]A Administration Metolazone 2.5 mg 04/25/22 09:00 05/01/22 08:32 Metolazone 5 Mg Tablet PO 2.5 mg DAILY [facility] Administration Metoprolol Tartrat e 25 mg 04/27/22 21:00 05/01/22 10:03 Metoprolol Tartr ate 25 Mg Tablet PO 25 mg BID@0900,2100 [facility] Administration Montelukast Sodium 10 mg 04/24/22 09:00 05/01/22 08:31 Montelukast Sodi um 10 Mg Tablet PO 10 mg DAILY [facility] Administration Non-Formulary Medi cation 1,875 mg 04/24/22 09:00 05/01/22 08:33 Colesevelam [Wel chol] PO 1,875 mg BID [facility] Administration Pantoprazole Sodiu m 40 mg 04/24/22 00:16 05/01/22 11:32 Pantoprazole 40 Mg Sdv IVP 40 mg Q12H [facility] Administration Rivaroxaban 15 mg 04/26/22 09:00 05/01/22 10:02 Rivaroxaban 10 M g Tablet PO 15 mg DAILY [facility] Administration Senna/Docusate Sod ium 1 tab 04/30/22 18:00 05/01/22 08:31 Sennosides-Docus ate Tablet PO 1 tab BID [facility] Administration Trazodone HCl 100 mg 04/27/22 21:00 04/30/22 20:58 Trazodone 100 Mg Tablet PO 100 mg BEDTIME [facility] Administration Venlafaxine HCl 150 mg 04/24/22 06:00 04/30/22 05:39 Venlafaxine Er ( 24hr) 150 Mg Capsu le PO 150 mg QAM [facility] Administration Vitals/I&O/Wt Last Vital Signs Temp 98.1 F 04/30/22 17:00 Pulse 81 05/01/22 11:38 Resp 20 H 05/01/22 11:38 BP 140/84 05/01/22 11:38 Pulse Ox 91 05/01/22 11:38 O2 Del Method 05/01/22 11:38 O2 Flow Rate 10 05/01/22 11:38 FiO2 60 05/01/22 08:13 04/30/22 05/01/22 05/01/22 22:59 06:59 14:59 Intake Total 760 / 1340 360 / 360 Output Total 2640 / 4290 1500 / 1500 Balance 760 / -310 -2640 / -2950 -1140 / -1140 Weight last 48 hrs Weight 19.958 kg Weight 185.99 kg Weight 187.532 kg Physical Exam Const: COMMON NORMALS: patient oriented x3 Resp: COMMON NORMALS: clear to auscultation bilaterally EFFORT & INSPECTION: Yes symmetric chest movement AUSCULTATION: clear to auscultation bilaterally Cardio: COMMON NORMALS: regular rate, regular rhythm, S1 normal heart sound present, S2 normal heart sound present, No gallops present (Cardio), No murmurs present (Cardio), No rub (Cardio) and Peripheral pulses 2+ throughout RATE: regular rate RHYTHM: regular rhythm HEART SOUNDS: S1 normal heart sound present and S2 normal heart sound present PERIPHERAL PULSES: Peripheral pulses 2+ throughout GI: COMMON NORMALS: Normal to inspection, nondistended, normoactive bowel sounds present, Soft to palpation, non-tender, No hepatosplenomegaly present and no masses AUSCULTATION: Yes normoactive bowel sounds PALPATION: Yes Soft to palpation and Yes No hepatosplenomegaly present RECTAL EXAM: Yes deferred Extremity: COMMON NORMALS: no clubbing, cyanosis or edema and no pedal edema Neuro: COMMON NORMALS: patient oriented x3 Data 05/01/22 03:21 05/01/22 03:21 A&P Assessment and plan (1) Acute on chronic respiratory failure: Patient presents with acute on chronic respiratory failure. He has a complicated presentation secondary to his morbid obesity, obesity hypoventilation, chronic COPD. His respiratory failure is multifactorial. Acute component may be secondary to pneumonia. Slow improvement, but may be stagnating. Down to about 50% FiO2 but when taken off yesterday evening to eat required 12 L . Doubt pneumonia is playing much into the picture currently. (2) Obesity hypoventilation syndrome: Has trilogy at home, continue BiPAP currently (3) Acute kidney injury: Likely has cardiorenal syndrome He continues to diurese. BUN is now starting to rise, and cardiology believes it is prudent to lower his Bumex dose slightly and continue to monitor. I concur. Creatinine is not yet at baseline, and this potentially could be his new baseline considering his need for diuretics Appreciate cardiology consultation, note that they have added Zaroxolyn low- dose. (4) Diabetes mellitus with hyperglycemia, with long-term current use of insulin: Sliding scale insulin Long-acting insulin discontinued secondary to risk of hypoglycemia (5) COPD exacerbation: He has completed his course of prednisone Continue DuoNeb every 4 hours Budesonide inhaled (6) CHF exacerbation: Continue diuresis, currently on Bumex 1 mg IV every 12 hours. Changed to 0.5 mg every 12 hours and continue to monitor electrolytes Echocardiogram was recently done. Appears to mainly have acute diastolic congestive heart failure Appreciate cardiology consultation. Zaroxolyn has been added. He has -10,600 so far this hospital course. (7) Afib: Continue patient's amiodarone. Rate controlled currently. On anticoagulation with rivaroxaban. Reduced to 15 mg daily secondary to renal function (8) Hyperkalemia: Resolved (9) Community acquired bilateral lower lobe pneumonia: Continue Zosyn, fourth day of Zosyn. Received Rocephin for 2 days prior, Zithromax for 3 days total MRSA PCR negative Blood cultures negative COVID, influenza negative Plan Anemia, chronic. Continue close monitoring of hemoglobin. Known to have iron deficiency anemia and has been supplemented in the past. Has drifted slowly down during hospitalization. Iron infusion today. Other medical problems as outlined in past medical history Plan for today: Continue with closely monitored IV diuresis, currently continued to have good urine output, Currently continue to be on BiPAP as well as HFNC.Continue to closely monitor H&H. Serum B12: 290: On p.o. vitamin B12 500 mcg p.o. daily, will get repeat serum B12 level in 4-weeks. Worsening leukocytosis: Possibly secondary to steroid use. Most important thing is that pulm medicine service coverage is not available till of this month, and unfortunately he is an ideal candidate for inpatient inpatient pulmonary medicine consult, at some point in time he was following Dr. Dawson as outpatient. CODE STATUS: Full code DVT prophylaxis: Not needed patient is on therapeutic anticoagulation with Xarelto. Attestations Medical Necessity Statement*: Patient is in hospital for management of respiratory failure. Currently awaiting placement. Coding Level of Care Code Acute Code for [facility] Fwd Diagnoses Acute on chronic respiratory failure J96.20 Obesity hypoventilation syndrome E66.2 Acute kidney injury N17.9 Diabetes mellitus with hyperglycemia, with long-term current use of insulin E11.65; Z79.4 COPD exacerbation J44.1 CHF exacerbation I50.9 Afib I48.91 Hyperkalemia E87.5 Community acquired bilateral lower lobe pneumonia J18.9
[2022-05-01 16:40] LABS: Glucose Point of Care 377 mg/dL (70-110)
[2022-05-01] MEDS: trazodone 100 mg Tablet PO (20:04)
[2022-05-01] MEDS: fenofibrate 145 mg Tablet PO (20:04)
[2022-05-01 21:02] LABS: Glucose Point of Care 441 mg/dL (70-110)
[2022-05-01] MEDS: insulin lispro 100 unit/1 mL 10 UNIT SUBCUT (21:40)
[2022-05-02] VITALS (19 sets, daily range): BP systolic 141–161; BP diastolic 68–89; PULSE 68–85; RESP 14–35; TEMP 36.4–36.6; O2SAT 90–94
[2022-05-02] MEDS: albuterol 2.5 mg/3 mL Neb INHALATION ×6 (00:53→20:03)
[2022-05-02] MEDS: ipratropium 0.5 mg/2.5 mL Neb INHALATION ×6 (00:53→20:03)
[2022-05-02] MEDS: venlafaxine ER (24HR) 150 mg Capsule PO (03:17)
[2022-05-02 03:35] LABS: Basophils % 0.1 %; Hematocrit 29.5 % (42.0-52.0); Hemoglobin 8.9 g/dL (11.7-16.6); Lymphocytes # 0.9 10^3/uL (0.8-4.8); Lymphocytes % 4.9 %; Mean Corpuscular HGB Conc 30.2 g/dL (30.0-36.0); Mean Corpuscular Hemoglobin 28.8 pg (28.0-34.0); Mean Corpuscular Volume 95.5 fl (80-94); Mean Platelet Volume 10.1 fL (7.4-10.4); Monocytes # 0.8 10^3/uL (0.2-0.9); Monocytes % 4.8 %; Neutrophils # 15.66 10^3/uL (1.8-7.7); Neutrophils % 89.1 %; Nucleated Red Blood Cells % 0 %; Platelet Count 380 10^3/cmm (130-400); Red Blood Count 3.09 10^6/uL (4.1-5.3); Red Cell Distribution Width 15.5 % (12.1-15.1); White Blood Count 17.6 10^3/uL (4.0-10.0)
[2022-05-02 04:17] LABS: Alanine Aminotransferase 12 U/L (0-41); Albumin Level 3.1 g/dL (3.5-5.2); Alkaline Phosphatase 61 U/L (40-130); Anion Gap 11.2 (5-19); Aspartate Amino Transferase 16 U/L (0-40); Blood Urea Nitrogen 47 mg/dL (8-23); Calcium 8.9 mg/dL (8.5-10.5); Carbon Dioxide 33 mmol/L (22-29); Chloride 100 mmol/L (98-107); Creatinine Clr Calc Pharmacy 12.1658; Globulin 3.5 g/dL (1.3-4.6); Glomerular Filtration Rate 38.6 mL/min (90-130); Glucose 261 mg/dL (65-115); Osmolality Calculated 311 mOsm/kg (285-295); Potassium 4.2 mmol/L (3.5-5.1); Sodium 140 mmol/L (136-145); Total Bilirubin 0.3 mg/dL (0.15-1.2); Total Protein 6.6 g/dL (6.6-8.7)
[2022-05-02 06:43] LABS: Glucose Point of Care 272 mg/dL (70-110)
[2022-05-02] MEDS: budesonide 0.5 mg/2 mL Neb INHALATION ×2 (07:58→20:04)
--- NOTE | 2022-05-02 09:26 | PM.PN ---
Subjective Subjective: Patient is stable. Breathing is better. Diuresing well. Vitals/I&O/Wt Last Vital Signs Temp 97.6 F 05/02/22 07:45 Pulse 77 05/02/22 08:02 Resp 29 H 05/02/22 07:58 BP 161/89 05/02/22 07:45 Pulse Ox 90 05/02/22 07:59 O2 Del Method 05/02/22 07:58 O2 Flow Rate 10 05/02/22 04:00 FiO2 60 05/02/22 07:59 05/01/22 05/02/22 05/02/22 22:59 06:59 14:59 Intake Total 456.167 / 1061.167 290 / 1351.167 360 / 360 Output Total 1250 / 4250 1950 / 6200 Balance -793.833 / -3188.833 -1660 / -4848.833 360 / 360 Weight last 48 hrs Weight 415 lb 11.2 oz Weight 44 lb Physical Exam Narrative: GENERAL: Patient is alert, awake and oriented x3. On bipap, comfortable] NECK: No jugular vein distension. [] HEENT: No cyanosis. No icterus. No pallor. [] HEART: Regular S1 and S2. No murmur, rub or gallop. [] LUNGS:Diminished breath sounds CENTRAL NERVOUS SYSTEM: Grossly nonfocal. [] EXTREMITIES: Lower extremities with 1+ edema bilaterally. Data 05/02/22 03:14 05/02/22 03:14 A&P Assessment and plan (1) Afib: (2) Acute kidney injury: (3) Acute on chronic respiratory failure: (4) COPD exacerbation: (5) CHF exacerbation: (6) Diabetes mellitus with hyperglycemia, with long-term current use of insulin: (7) EDGAR (obstructive sleep apnea): (8) Hyperlipemia: Qualifiers: Hyperlipidemia type: mixed hyperlipidemia Qualified Code(s): E78.2 - Mixed hyperlipidemia (9) Chronic diastolic (congestive) heart failure: Plan Continue bumex and metolazone. He may need downtitration of diuretics if BUN/ creatinine show upward trend. If renal function stays stable, enteresto can be uptitrated. HgB is stable Weight loss will be most improtant factor in improving his respiratory status. Consider outpatient endocrinology assessment for weight loss therapies. Also can have assessment by bariatric surgery team for potential options. Thank you for involving us with care of this patient. Please call with questions. Attestations Medical Necessity Statement*: Care expected to cross 2 midnights. Coding Level of Care Code Acute Code for [facility]g Fwd Diagnoses Afib I48.91 Acute kidney injury N17.9 Acute on chronic respiratory failure J96.20 COPD exacerbation J44.1 CHF exacerbation I50.9 Diabetes mellitus with hyperglycemia, with long-term current use of insulin E11.65; Z79.4 EDGAR (obstructive sleep apnea) G47.33 Hyperlipemia E78.2 Hyperlipidemia type: mixed hyperlipidemia Chronic diastolic (congestive) heart failure I50.32
[2022-05-02] MEDS: montelukast sodium 10 mg Tablet PO (09:42)
[2022-05-02] MEDS: cyanocobalamin 1,000 mcg Tablet 500 MCG PO (09:42)
[2022-05-02] MEDS: ferrous sulfate EC 325 mg Tablet PO ×2 (09:42→17:32)
[2022-05-02] MEDS: metOLazone 5 MG Tablet 2.5 MG PO (09:42)
[2022-05-02] MEDS: rivaroxaban 10 mg Tablet 15 MG PO (09:43)
[2022-05-02] MEDS: hyDRALAzine 50 mg Tablet 100 MG PO ×3 (09:43→20:21)
[2022-05-02] MEDS: BuSPIRONE 10 mg Tablet 15 MG PO ×2 (09:43→17:33)
[2022-05-02] MEDS: levothyroxine 175 mcg Tablet PO (09:43)
[2022-05-02] MEDS: amiodarone 200 mg Tablet PO (09:44)
[2022-05-02] MEDS: sennosides-docusate Tablet 1 TAB PO ×2 (09:44→17:32)
[2022-05-02] MEDS: atorvastatin 40 mg Tablet PO (09:44)
[2022-05-02] MEDS: amlodipine 10 mg Tablet PO (09:44)
[2022-05-02] MEDS: insulin lispro 100 unit/1 mL SUBCUT ×4 (09:44→17:37)
[2022-05-02] MEDS: bumetanide 0.25 mg/mL SDV 4 mL 0.5 MG IVP ×2 (09:44→20:20)
[2022-05-02] MEDS: NON-FORMULARY MEDICATION (Colesevelam [Welchol] 625 mg tablet) 1875 EACH PO ×2 (09:45→17:33)
[2022-05-02] MEDS: metoprolol tartrate 25 mg Tablet PO ×2 (10:03→20:21)
--- NOTE | 2022-05-02 11:09 | PC.SOCIAL ---
IMM Update Pg. 2 of IMM updated and reviewed with patient. Copy provided.
[2022-05-02 11:33] LABS: Glucose Point of Care 299 mg/dL (70-110)
--- NOTE | 2022-05-02 11:35 | PC.NURSE ---
Pt sitting on the side of the bed talking to staff. Pt resp even and non-labored no distress or sob noted. Pt had no c/o pain or discomfort at the present time. No needs voiced at the present time.
[2022-05-02] MEDS: piperacillin-tazobactam 3.375 GM in sodium chloride 0.9% (plus) 50 ML IV ×2 (12:33→20:20)
[2022-05-02] MEDS: pantoprazole 40 mg SDV IVP (12:34)
--- NOTE | 2022-05-02 15:00 | PM.PN ---
Subjective Subjective: Patient was seen and examined this morning, no acute events diuresing well. Medications: Reviewed: Yes Medication Review Details: Generic Name Dose Route Start Last Admin Trade Name Freq PRN Reason Stop Dose Admin Albuterol Sulfate 2.5 mg 04/24/22 16:00 05/02/22 11:14 Albuterol 2.5 Mg /3 Ml Neb INHALATION 2.5 mg Q4H.RESPIRATORY S [facility] Administration Amiodarone HCl 200 mg 04/24/22 09:00 05/02/22 09:44 Amiodarone 200 M g Tablet PO 200 mg DAILY SANTA Administration Amlodipine Besylat e 10 mg 04/24/22 09:00 05/02/22 09:44 Amlodipine 10 Mg Tablet PO 10 mg DAILY SANTA Administration Atorvastatin Calci um 40 mg 04/24/22 09:00 05/02/22 09:44 Atorvastatin 40 Mg Tablet PO 40 mg DAILY S[facility]A Administration Budesonide 0.5 mg 04/24/22 08:00 05/02/22 07:58 Budesonide 0.5 M g/2 Ml Neb INHALATION 0.5 mg BID.RESPIRATORY S [facility] Administration Bumetanide 0.5 mg 04/28/22 08:30 05/02/22 09:44 Bumetanide 0.25 Mg/Ml Sdv 4 Ml IVP 0.5 mg Q12H SANTA Administration Buspirone HCl 15 mg 04/24/22 09:00 05/02/22 09:43 Buspirone 10 Mg Tablet PO 15 mg BID S[facility]A Administration Cyanocobalamin 500 mcg 05/01/22 09:00 05/02/22 09:42 Cyanocobalamin 1 ,000 Mcg Tablet PO 500 mcg DAILY SANTA Administration Denture Adhesive 1 each 04/25/22 17:39 04/25/22 19:11 Efferdent Efferv escent DENTAL 1 each PRN PRN Administration cleaning dentures Fenofibrate 145 mg 04/24/22 21:00 05/01/22 20:04 Fenofibrate 145 Mg Tablet PO 145 mg BEDTIME SANTA Administration Ferrous Sulfate 325 mg 04/24/22 09:00 05/02/22 09:42 Ferrous Sulfate Ec 325 Mg Tablet PO 325 mg BID SANTA Administration Hydralazine HCl 100 mg 04/24/22 09:00 05/02/22 09:43 Hydralazine 50 M g Tablet PO 100 mg TID SANTA Administration Piperacillin Sod/T azobactam 50 mls @ 12.5 mls /hr 05/02/22 13:00 05/02/22 12:33 Sod 3.375 gm/ So dium Chloride IV 12.5 mls/hr Q8H S[facility]A Administration Insulin Human Lisp ro 0 unit 05/02/22 08:00 05/02/22 12:34 Insulin Lispro 1 00 Unit/1 Ml SUBCUT 8 unit TIDWM SANTA Administration Protocol Ipratropium Bromid e 0.5 mg 04/24/22 16:00 05/02/22 11:14 Ipratropium 0.5 Mg/2.5 Ml Neb INHALATION 0.5 mg Q4H.RESPIRATORY S [facility] Administration Levothyroxine Sodi um 175 mcg 04/24/22 09:00 05/02/22 09:43 Levothyroxine 17 5 Mcg Tablet PO 175 mcg DAILY SANTA Administration Methylprednisolone Sodium Succinate 40 mg 04/29/22 09:45 05/02/22 09:45 Methylprednisolo ne Sod Succ 40 Mg/ Ml Inj IVP 40 mg Q6H S[facility]A Administration Metolazone 2.5 mg 04/25/22 09:00 05/02/22 09:42 Metolazone 5 Mg Tablet PO 2.5 mg DAILY [facility] Administration Metoprolol Tartrat e 25 mg 04/27/22 21:00 05/02/22 10:03 Metoprolol Tartr ate 25 Mg Tablet PO 25 mg BID@0900,2100 [facility] Administration Montelukast Sodium 10 mg 04/24/22 09:00 05/02/22 09:42 Montelukast Sodi um 10 Mg Tablet PO 10 mg DAILY SANTA Administration Non-Formulary Medi cation 1,875 mg 04/24/22 09:00 05/02/22 09:45 Colesevelam [Wel chol] PO 1,875 mg BID SANTA Administration Pantoprazole Sodiu m 40 mg 04/24/22 00:16 05/02/22 12:34 Pantoprazole 40 Mg Sdv IVP 40 mg Q12H S[facility]A Administration Rivaroxaban 15 mg 04/26/22 09:00 05/02/22 09:43 Rivaroxaban 10 M g Tablet PO 15 mg DAILY [facility] Administration Senna/Docusate Sod ium 1 tab 04/30/22 18:00 05/02/22 09:44 Sennosides-Docus ate Tablet PO 1 tab BID S[facility]A Administration Trazodone HCl 100 mg 04/27/22 21:00 05/01/22 20:04 Trazodone 100 Mg Tablet PO 100 mg BEDTIME S[facility] Administration Venlafaxine HCl 150 mg 04/24/22 06:00 05/02/22 03:17 Venlafaxine Er ( 24hr) 150 Mg Capsu le PO 150 mg QAM S[facility]A Administration Vitals/I&O/Wt Last Vital Signs Temp 97.7 F 05/02/22 12:00 Pulse 79 05/02/22 12:00 Resp 23 H 05/02/22 12:00 BP 141/69 05/02/22 12:00 Pulse Ox 91 05/02/22 12:00 O2 Del Method 05/02/22 12:00 O2 Flow Rate 10 05/02/22 11:16 FiO2 60 05/02/22 08:00 05/02/22 05/02/22 05/02/22 06:59 14:59 22:59 Intake Total 290 / 1351.167 720 / 720 Output Total 1950 / 6200 2500 / 2500 Balance -1660 / -4848.833 -1780 / -1780 Weight last 48 hrs Weight 188.558 kg Weight 19.958 kg Physical Exam Const: COMMON NORMALS: patient oriented x3 Resp: COMMON NORMALS: clear to auscultation bilaterally EFFORT & INSPECTION: Yes symmetric chest movement AUSCULTATION: clear to auscultation bilaterally Cardio: COMMON NORMALS: regular rate, regular rhythm, S1 normal heart sound present, S2 normal heart sound present, No gallops present (Cardio), No murmurs present (Cardio), No rub (Cardio) and Peripheral pulses 2+ throughout RATE: regular rate RHYTHM: regular rhythm HEART SOUNDS: S1 normal heart sound present and S2 normal heart sound present PERIPHERAL PULSES: Peripheral pulses 2+ throughout GI: COMMON NORMALS: Normal to inspection, nondistended, normoactive bowel sounds present, Soft to palpation, non-tender, No hepatosplenomegaly present and no masses AUSCULTATION: Yes normoactive bowel sounds PALPATION: Yes Soft to palpation and Yes No hepatosplenomegaly present RECTAL EXAM: Yes deferred Extremity: COMMON NORMALS: no clubbing, cyanosis or edema and no pedal edema Neuro: COMMON NORMALS: patient oriented x3 Data 05/02/22 03:14 05/02/22 03:14 A&P Assessment and plan (1) Acute on chronic respiratory failure: Patient presents with acute on chronic respiratory failure. He has a complicated presentation secondary to his morbid obesity, obesity hypoventilation, chronic COPD. His respiratory failure is multifactorial. Acute component may be secondary to pneumonia. Slow improvement, but may be stagnating. Down to about 50% FiO2 but when taken off yesterday evening to eat required 12 L . Doubt pneumonia is playing much into the picture currently. (2) Obesity hypoventilation syndrome: Has trilogy at home, continue BiPAP currently (3) Acute kidney injury: Likely has cardiorenal syndrome He continues to diurese. BUN is now starting to rise, and cardiology believes it is prudent to lower his Bumex dose slightly and continue to monitor. I concur. Creatinine is not yet at baseline, and this potentially could be his new baseline considering his need for diuretics Appreciate cardiology consultation, note that they have added Zaroxolyn low-dose. (4) Diabetes mellitus with hyperglycemia, with long-term current use of insulin: Sliding scale insulin Long-acting insulin discontinued secondary to risk of hypoglycemia (5) COPD exacerbation: He has completed his course of prednisone Continue DuoNeb every 4 hours Budesonide inhaled (6) CHF exacerbation: Continue diuresis, currently on Bumex 1 mg IV every 12 hours. Changed to 0.5 mg every 12 hours and continue to monitor electrolytes Echocardiogram was recently done. Appears to mainly have acute diastolic congestive heart failure Appreciate cardiology consultation. Zaroxolyn has been added. He has -10,600 so far this hospital course. (7) Afib: Continue patient's amiodarone. Rate controlled currently. On anticoagulation with rivaroxaban. Reduced to 15 mg daily secondary to renal function (8) Hyperkalemia: Resolved (9) Community acquired bilateral lower lobe pneumonia: Continue Zosyn, fourth day of Zosyn. Received Rocephin for 2 days prior, Zithromax for 3 days total MRSA PCR negative Blood cultures negative COVID, influenza negative Plan Anemia, chronic. Continue close monitoring of hemoglobin. Known to have iron deficiency anemia and has been supplemented in the past. Has drifted slowly down during hospitalization. Iron infusion today. Other medical problems as outlined in past medical history Plan for today: Continue with closely monitored IV diuresis, currently continued to have good urine output, Currently continue to be on BiPAP as well as HFNC.Continue to closely monitor H&H. Serum B12: 290: On p.o. vitamin B12 500 mcg p.o. daily, will get repeat serum B12 level in 4-weeks. Worsening leukocytosis: Possibly secondary to steroid use. Most important thing is that pulm medicine service coverage is not available till of this month, and unfortunately he is an ideal candidate for inpatient pulmonary medicine consult, at some point in time he was following Dr. Dawson as outpatient. CODE STATUS: Full code DVT prophylaxis: Not needed patient is on therapeutic anticoagulation with Xarelto. Attestations Medical Necessity Statement*: To be in hospital for management respiratory failure Coding Level of Care Code Acute Code for Chg Fwd Exam Detailed Diagnoses Acute on chronic respiratory failure J96.20 Obesity hypoventilation syndrome E66.2 Acute kidney injury N17.9 Diabetes mellitus with hyperglycemia, with long-term current use of insulin E11.65; Z79.4 COPD exacerbation J44.1 CHF exacerbation I50.9 Afib I48.91 Hyperkalemia E87.5 Community acquired bilateral lower lobe pneumonia J18.9
[2022-05-02 17:08] LABS: Glucose Point of Care 329 mg/dL (70-110)
[2022-05-02 20:01] LABS: Glucose Point of Care 376 mg/dL (70-110)
[2022-05-02] MEDS: fenofibrate 145 mg Tablet PO (20:21)
[2022-05-02] MEDS: trazodone 100 mg Tablet PO (20:21)
[2022-05-03] VITALS (21 sets, daily range): BP systolic 131–173; BP diastolic 55–82; PULSE 75–90; RESP 14–26; TEMP 36.2–36.6; O2SAT 88–97
[2022-05-03] MEDS: albuterol 2.5 mg/3 mL Neb INHALATION ×4 (00:14→11:14)
[2022-05-03] MEDS: ipratropium 0.5 mg/2.5 mL Neb INHALATION ×5 (00:14→15:20)
[2022-05-03] MEDS: pantoprazole 40 mg SDV IVP ×3 (00:24→21:09)
[2022-05-03 03:13] LABS: Basophils % 0.1 %; Eosinophils % 0.1 %; Hematocrit 29.9 % (42.0-52.0); Hemoglobin 9.1 g/dL (11.7-16.6); Lymphocytes # 0.8 10^3/uL (0.8-4.8); Lymphocytes % 4.5 %; Mean Corpuscular HGB Conc 30.4 g/dL (30.0-36.0); Mean Corpuscular Hemoglobin 28.8 pg (28.0-34.0); Mean Corpuscular Volume 94.6 fl (80-94); Mean Platelet Volume 10.3 fL (7.4-10.4); Monocytes # 0.8 10^3/uL (0.2-0.9); Monocytes % 4.7 %; Neutrophils # 15.14 10^3/uL (1.8-7.7); Neutrophils % 89.2 %; Nucleated Red Blood Cells % 0 %; Platelet Count 354 10^3/cmm (130-400); Red Blood Count 3.16 10^6/uL (4.1-5.3); Red Cell Distribution Width 15.3 % (12.1-15.1)
[2022-05-03 03:34] LABS: Alanine Aminotransferase 14 U/L (0-41); Albumin Level 3.3 g/dL (3.5-5.2); Alkaline Phosphatase 66 U/L (40-130); Anion Gap 11.3 (5-19); Aspartate Amino Transferase 26 U/L (0-40); Blood Urea Nitrogen 50 mg/dL (8-23); Calcium 8.8 mg/dL (8.5-10.5); Carbon Dioxide 33 mmol/L (22-29); Chloride 98 mmol/L (98-107); Glomerular Filtration Rate 36.2 mL/min (90-130); Glucose 300 mg/dL (65-115); Osmolality Calculated 311 mOsm/kg (285-295); Potassium 4.3 mmol/L (3.5-5.1); Sodium 138 mmol/L (136-145); Total Bilirubin 0.3 mg/dL (0.15-1.2); Total Protein 6.3 g/dL (6.6-8.7)
[2022-05-03] MEDS: piperacillin-tazobactam 3.375 GM in sodium chloride 0.9% (plus) 50 ML IV ×3 (04:34→21:08)
[2022-05-03] MEDS: venlafaxine ER (24HR) 150 mg Capsule PO (04:34)
[2022-05-03 06:27] LABS: Glucose Point of Care 294 mg/dL (70-110)
[2022-05-03] MEDS: budesonide 0.5 mg/2 mL Neb INHALATION ×2 (07:50→21:08)
[2022-05-03] MEDS: rivaroxaban 10 mg Tablet 15 MG PO (10:11)
[2022-05-03] MEDS: hyDRALAzine 50 mg Tablet 100 MG PO ×3 (10:11→21:00)
[2022-05-03] MEDS: atorvastatin 40 mg Tablet PO (10:13)
[2022-05-03] MEDS: levothyroxine 175 mcg Tablet PO (10:13)
[2022-05-03] MEDS: amlodipine 10 mg Tablet PO (10:13)
[2022-05-03] MEDS: cyanocobalamin 1,000 mcg Tablet 500 MCG PO (10:13)
[2022-05-03] MEDS: BuSPIRONE 10 mg Tablet 15 MG PO ×2 (10:15→17:35)
[2022-05-03] MEDS: ferrous sulfate EC 325 mg Tablet PO ×2 (10:15→17:35)
[2022-05-03] MEDS: metoprolol tartrate 25 mg Tablet PO ×2 (10:15→21:07)
[2022-05-03] MEDS: montelukast sodium 10 mg Tablet PO (10:15)
[2022-05-03] MEDS: insulin lispro 100 unit/1 mL SUBCUT ×3 (10:17→17:35)
[2022-05-03] MEDS: bumetanide 0.25 mg/mL SDV 4 mL 0.5 MG IVP ×2 (10:18→21:07)
[2022-05-03] MEDS: amiodarone 200 mg Tablet PO (10:19)
[2022-05-03] MEDS: metOLazone 5 MG Tablet 2.5 MG PO (10:19)
[2022-05-03] MEDS: sennosides-docusate Tablet 1 TAB PO ×2 (10:19→17:35)
[2022-05-03] MEDS: NON-FORMULARY MEDICATION (Colesevelam [Welchol] 625 mg tablet) 1875 EACH PO ×2 (10:20→17:35)
[2022-05-03 11:04] LABS: Glucose Point of Care 399 mg/dL (70-110)
--- NOTE | 2022-05-03 12:50 | P.PN_ITS ---
Subjective Subjective: Patient was seen and examined this morning, no acute events diuresing well. Medications: Reviewed: Yes Medication Review Details: Generic Name Dose Route Start Last Admin Trade Name Freq PRN Reason Stop Dose Admin Amiodarone HCl 200 mg 04/24/22 09:00 05/03/22 10:19 Amiodarone 200 M g Tablet PO 200 mg DAILY SANTA Administration Amlodipine Besylat e 10 mg 04/24/22 09:00 05/03/22 10:13 Amlodipine 10 Mg Tablet PO 10 mg DAILY S[facility]A Administration Atorvastatin Calci um 40 mg 04/24/22 09:00 05/03/22 10:13 Atorvastatin 40 Mg Tablet PO 40 mg DAILY [facility]A Administration Budesonide 0.5 mg 04/24/22 08:00 05/03/22 07:50 Budesonide 0.5 M g/2 Ml Neb INHALATION 0.5 mg BID.RESPIRATORY S [facility] Administration Bumetanide 0.5 mg 04/28/22 08:30 05/03/22 10:18 Bumetanide 0.25 Mg/Ml Sdv 4 Ml IVP 0.5 mg Q12H SANTA Administration Buspirone HCl 15 mg 04/24/22 09:00 05/03/22 10:15 Buspirone 10 Mg Tablet PO 15 mg BID SANTA Administration Cyanocobalamin 500 mcg 05/01/22 09:00 05/03/22 10:13 Cyanocobalamin 1 ,000 Mcg Tablet PO 500 mcg DAILY S[facility]A Administration Denture Adhesive 1 each 04/25/22 17:39 04/25/22 19:11 Efferdent Efferv escent DENTAL 1 each PRN PRN Administration cleaning dentures Fenofibrate 145 mg 04/24/22 21:00 05/02/22 20:21 Fenofibrate 145 Mg Tablet PO 145 mg BEDTIME S[facility]A Administration Ferrous Sulfate 325 mg 04/24/22 09:00 05/03/22 10:15 Ferrous Sulfate Ec 325 Mg Tablet PO 325 mg BID S[facility]A Administration Hydralazine HCl 100 mg 04/24/22 09:00 05/03/22 10:11 Hydralazine 50 M g Tablet PO 100 mg TID S[facility]A Administration Piperacillin Sod/T azobactam 50 mls @ 12.5 mls /hr 05/02/22 13:00 05/03/22 08:45 Sod 3.375 gm/ So dium Chloride IV Infused Q8H S[facility]A Infusion Insulin Human Lisp ro 0 unit 05/02/22 08:00 05/03/22 12:11 Insulin Lispro 1 00 Unit/1 Ml SUBCUT 16 unit TIDWM S[facility] Administration Protocol Ipratropium Bromid e 0.5 mg 04/24/22 16:00 05/03/22 11:14 Ipratropium 0.5 Mg/2.5 Ml Neb INHALATION 0.5 mg Q4H.RESPIRATORY S CH Administration Levothyroxine Sodi um 175 mcg 04/24/22 09:00 05/03/22 10:13 Levothyroxine 17 5 Mcg Tablet PO 175 mcg DAILY [facility] Administration Methylprednisolone Sodium Succinate 40 mg 04/29/22 09:45 05/03/22 10:22 Methylprednisolo ne Sod Succ 40 Mg/ Ml Inj IVP 40 mg Q6H [facility] Administration Metolazone 2.5 mg 04/25/22 09:00 05/03/22 10:19 Metolazone 5 Mg Tablet PO 2.5 mg DAILY [facility] Administration Metoprolol Tartrat e 25 mg 04/27/22 21:00 05/03/22 10:15 Metoprolol Tartr ate 25 Mg Tablet PO 25 mg BID@0900,2100 [facility] Administration Montelukast Sodium 10 mg 04/24/22 09:00 05/03/22 10:15 Montelukast Sodi um 10 Mg Tablet PO 10 mg DAILY [facility] Administration Non-Formulary Medi cation 1,875 mg 04/24/22 09:00 05/03/22 10:20 Colesevelam [Wel chol] PO 1,875 mg BID [facility]A Administration Pantoprazole Sodiu m 40 mg 04/24/22 00:16 05/03/22 12:11 Pantoprazole 40 Mg Sdv IVP 40 mg Q12H [facility]A Administration Rivaroxaban 15 mg 04/26/22 09:00 05/03/22 10:11 Rivaroxaban 10 M g Tablet PO 15 mg DAILY [facility] Administration Senna/Docusate Sod ium 1 tab 04/30/22 18:00 05/03/22 10:19 Sennosides-Docus ate Tablet PO 1 tab BID [facility]A Administration Trazodone HCl 100 mg 04/27/22 21:00 05/02/22 20:21 Trazodone 100 Mg Tablet PO 100 mg BEDTIME [facility] Administration Venlafaxine HCl 150 mg 04/24/22 06:00 05/03/22 04:34 Venlafaxine Er ( 24hr) 150 Mg Capsu le PO 150 mg QAM S[facility]A Administration Vitals/I&O/Wt Last Vital Signs Temp 97.6 F 05/03/22 08:00 Pulse 81 05/03/22 11:28 Resp 18 05/03/22 11:15 BP 173/82 05/03/22 08:00 Pulse Ox 94 05/03/22 11:15 O2 Del Method 05/03/22 11:15 O2 Flow Rate 10 05/03/22 11:15 FiO2 60 05/03/22 08:00 05/02/22 05/03/22 05/03/22 22:59 06:59 14:59 Intake Total 650 / 1370 50 / 1420 530 / 530 Output Total 1600 / 4100 1100 / 5200 2500 / 2500 Balance -950 / -2730 -1050 / -3780 -1970 / -1970 Weight last 48 hrs Weight 186.789 kg Weight 188.558 kg Physical Exam Const: COMMON NORMALS: patient oriented x3 Resp: COMMON NORMALS: clear to auscultation bilaterally EFFORT & INSPECTION: Yes symmetric chest movement AUSCULTATION: clear to auscultation bilaterally Cardio: COMMON NORMALS: regular rate, regular rhythm, S1 normal heart sound present, S2 normal heart sound present, No gallops present (Cardio), No murmurs present (Cardio), No rub (Cardio) and Peripheral pulses 2+ throughout RATE: regular rate RHYTHM: regular rhythm HEART SOUNDS: S1 normal heart sound present and S2 normal heart sound present PERIPHERAL PULSES: Peripheral pulses 2+ throughout GI: COMMON NORMALS: Normal to inspection, nondistended, normoactive bowel sounds present, Soft to palpation, non-tender, No hepatosplenomegaly present and no masses AUSCULTATION: Yes normoactive bowel sounds PALPATION: Yes Soft to palpation and Yes No hepatosplenomegaly present RECTAL EXAM: Yes deferred Extremity: COMMON NORMALS: no clubbing, cyanosis or edema and no pedal edema Neuro: COMMON NORMALS: patient oriented x3 Data 05/03/22 02:45 05/03/22 02:45 A&P Assessment and plan (1) Acute on chronic respiratory failure: Patient presents with acute on chronic respiratory failure. He has a complicated presentation secondary to his morbid obesity, obesity hypoventilation, chronic COPD. His respiratory failure is multifactorial. Acute component may be secondary to pneumonia. Slow improvement, but may be stagnating. Down to about 50% FiO2 but when taken off yesterday evening to eat required 12 L . Doubt pneumonia is playing much into the picture currently. (2) Obesity hypoventilation syndrome: Has trilogy at home, continue BiPAP currently (3) Acute kidney injury: Likely has cardiorenal syndrome He continues to diurese. BUN is now starting to rise, and cardiology believes it is prudent to lower his Bumex dose slightly and continue to monitor. I concur. Creatinine is not yet at baseline, and this potentially could be his new baseline considering his need for diuretics Appreciate cardiology consultation, note that they have added Zaroxolyn low- dose. (4) Diabetes mellitus with hyperglycemia, with long-term current use of insulin: Sliding scale insulin Long-acting insulin discontinued secondary to risk of hypoglycemia (5) COPD exacerbation: He has completed his course of prednisone Continue DuoNeb every 4 hours Budesonide inhaled (6) CHF exacerbation: Continue diuresis, currently on Bumex 1 mg IV every 12 hours. Changed to 0.5 mg every 12 hours and continue to monitor electrolytes Echocardiogram was recently done. Appears to mainly have acute diastolic congestive heart failure Appreciate cardiology consultation. Zaroxolyn has been added. He has -10,600 so far this hospital course. (7) Afib: Continue patient's amiodarone. Rate controlled currently. On anticoagulation with rivaroxaban. Reduced to 15 mg daily secondary to renal function (8) Hyperkalemia: Resolved (9) Community acquired bilateral lower lobe pneumonia: Continue Zosyn, fourth day of Zosyn. Received Rocephin for 2 days prior, Zithromax for 3 days total MRSA PCR negative Blood cultures negative COVID, influenza negative Plan Anemia, chronic. Continue close monitoring of hemoglobin. Known to have iron deficiency anemia and has been supplemented in the past. Has drifted slowly down during hospitalization. Iron infusion today. Other medical problems as outlined in past medical history Plan for today: Continue with closely monitored IV diuresis, currently continued to have good urine output, Currently continue to be on BiPAP as well as HFNC.Continue to closely monitor H&H. Serum B12: 290: On p.o. vitamin B12 500 mcg p.o. daily, will get repeat serum B1 2 level in 4-weeks. Worsening leukocytosis: Possibly secondary to steroid use. Most important thing is that pulm medicine service coverage is not available till of this month, and unfortunately he is an ideal candidate for inpatient pulmonary medicine consult, at some point in time he was following Dr. Dawson as outpatient. CODE STATUS: Full code DVT prophylaxis: Not needed patient is on therapeutic anticoagulation with Xarelto. Attestations Medical Necessity Statement*: In hospital for chronic respiratory failure Coding Level of Care Code Acute Code for Chg Fwd Exam Detailed Diagnoses Acute on chronic respiratory failure J96.20 Obesity hypoventilation syndrome E66.2 Acute kidney injury N17.9 Diabetes mellitus with hyperglycemia, with long-term current use of insulin E11.65; Z79.4 COPD exacerbation J44.1 CHF exacerbation I50.9 Afib I48.91 Hyperkalemia E87.5 Community acquired bilateral lower lobe pneumonia J18.9
[2022-05-03 17:10] LABS: Glucose Point of Care 373 mg/dL (70-110)
[2022-05-03] MEDS: trazodone 100 mg Tablet PO (21:00)
[2022-05-03] MEDS: fenofibrate 145 mg Tablet PO ×2 (21:00→21:01)
[2022-05-03 21:05] LABS: Glucose Point of Care 507 mg/dL (70-110)
[2022-05-03] MEDS: insulin lispro 100 unit/1 mL 15 UNIT SUBCUT (21:18)
[2022-05-04] VITALS (11 sets, daily range): BP systolic 146–167; BP diastolic 85–88; PULSE 76–91; RESP 16–20; TEMP 36.2–36.5; O2SAT 89–98
[2022-05-04 03:31] LABS: Basophils % 0.1 %; Hematocrit 31.1 % (42.0-52.0); Hemoglobin 9.2 g/dL (11.7-16.6); Lymphocytes # 1.1 10^3/uL (0.8-4.8); Lymphocytes % 6.2 %; Mean Corpuscular HGB Conc 29.6 g/dL (30.0-36.0); Mean Corpuscular Hemoglobin 27.9 pg (28.0-34.0); Mean Corpuscular Volume 94.2 fl (80-94); Mean Platelet Volume 10.2 fL (7.4-10.4); Monocytes # 1.3 10^3/uL (0.2-0.9); Monocytes % 7.1 %; Neutrophils # 15.32 10^3/uL (1.8-7.7); Neutrophils % 84.7 %; Nucleated Red Blood Cells % 0 %; Platelet Count 344 10^3/cmm (130-400); Red Cell Distribution Width 15.1 % (12.1-15.1); White Blood Count 18.1 10^3/uL (4.0-10.0)
[2022-05-04 04:01] LABS: Anion Gap 16.4 (5-19); Blood Urea Nitrogen 47 mg/dL (8-23); Calcium 8.8 mg/dL (8.5-10.5); Carbon Dioxide 32 mmol/L (22-29); Chloride 96 mmol/L (98-107); Glomerular Filtration Rate 38.6 mL/min (90-130); Glucose 343 mg/dL (65-115); Osmolality Calculated 316 mOsm/kg (285-295); Potassium 4.4 mmol/L (3.5-5.1); Sodium 140 mmol/L (136-145)
[2022-05-04] MEDS: venlafaxine ER (24HR) 150 mg Capsule PO (05:19)
[2022-05-04] MEDS: piperacillin-tazobactam 3.375 GM in sodium chloride 0.9% (plus) 50 ML IV (05:19)
[2022-05-04 07:32] LABS: Glucose Point of Care 261 mg/dL (70-110)
--- NOTE | 2022-05-04 07:46 | PM.PN ---
Subjective Subjective: Patient feeling well. No chest pain Vitals/I&O/Wt Last Vital Signs Temp 97.9 F 05/03/22 20:00 Pulse 76 05/04/22 06:33 Resp 18 05/04/22 01:21 BP 169/76 05/03/22 20:00 Pulse Ox 98 05/04/22 05:56 O2 Del Method 05/04/22 01:21 O2 Flow Rate 15 05/04/22 04:00 FiO2 50 05/04/22 01:21 05/03/22 05/04/22 05/04/22 22:59 06:59 14:59 Intake Total 530 / 1060 50 / 1110 Output Total 2300 / 6150 2950 / 9100 Balance -1770 / -5090 -2900 / -7990 Weight last 48 hrs Weight 408 lb 1.6 oz Weight 411 lb 12.8 oz Physical Exam Narrative: GENERAL: Patient is alert, awake and oriented x3. On bipap, comfortable] NECK: No jugular vein distension. [] HEENT: No cyanosis. No icterus. No pallor. [] HEART: Regular S1 and S2. No murmur, rub or gallop. [] LUNGS:Diminished breath sounds CENTRAL NERVOUS SYSTEM: Grossly nonfocal. [] EXTREMITIES: Lower extremities with 1+ edema bilaterally. Data 05/04/22 03:12 05/04/22 03:12 A&P Assessment and plan (1) Afib: (2) Acute kidney injury: (3) Acute on chronic respiratory failure: (4) COPD exacerbation: (5) CHF exacerbation: (6) Diabetes mellitus with hyperglycemia, with long-term current use of insulin: (7) EDGAR (obstructive sleep apnea): (8) Hyperlipemia: Qualifiers: Hyperlipidemia type: mixed hyperlipidemia Qualified Code(s): E78.2 - Mixed hyperlipidemia (9) Chronic diastolic (congestive) heart failure: Plan Continue bumex and metolazone. Good diuresis HgB is stable Thank you for involving us with care of this patient. Please call with questions. Attestations Medical Necessity Statement*: Care expected to cross 2 midnights. Coding Level of Care Code Acute Code for Chg Fwd Diagnoses Afib I48.91 Acute kidney injury N17.9 Acute on chronic respiratory failure J96.20 COPD exacerbation J44.1 CHF exacerbation I50.9 Diabetes mellitus with hyperglycemia, with long-term current use of insulin E11.65; Z79.4 EDGAR (obstructive sleep apnea) G47.33 Hyperlipemia E78.2 Hyperlipidemia type: mixed hyperlipidemia Chronic diastolic (congestive) heart failure I50.32
[2022-05-04] MEDS: bumetanide 0.25 mg/mL SDV 4 mL 0.5 MG IVP ×2 (08:06→20:28)
[2022-05-04] MEDS: hyDRALAzine 50 mg Tablet 100 MG PO ×3 (08:07→20:28)
[2022-05-04] MEDS: BuSPIRONE 10 mg Tablet 15 MG PO ×2 (08:07→17:22)
[2022-05-04] MEDS: metOLazone 5 MG Tablet 2.5 MG PO (08:07)
[2022-05-04] MEDS: atorvastatin 40 mg Tablet PO (08:08)
[2022-05-04] MEDS: amlodipine 10 mg Tablet PO (08:08)
[2022-05-04] MEDS: cyanocobalamin 1,000 mcg Tablet 500 MCG PO (08:08)
[2022-05-04] MEDS: rivaroxaban 10 mg Tablet 15 MG PO (08:08)
[2022-05-04] MEDS: sennosides-docusate Tablet 1 TAB PO ×2 (08:08→17:22)
[2022-05-04] MEDS: montelukast sodium 10 mg Tablet PO (08:08)
[2022-05-04] MEDS: ferrous sulfate EC 325 mg Tablet PO ×2 (08:09→17:22)
[2022-05-04] MEDS: levothyroxine 175 mcg Tablet PO (08:09)
[2022-05-04] MEDS: amiodarone 200 mg Tablet PO (08:09)
[2022-05-04] MEDS: NON-FORMULARY MEDICATION (Colesevelam [Welchol] 625 mg tablet) 1875 EACH PO ×2 (08:10→17:23)
[2022-05-04] MEDS: insulin lispro 100 unit/1 mL SUBCUT ×3 (08:31→17:23)
[2022-05-04] MEDS: budesonide 0.5 mg/2 mL Neb INHALATION ×2 (10:24→20:01)
--- NOTE | 2022-05-04 11:09 | PC.SOCIAL ---
IMM Updated Updated pt on IMM. No questions voiced. Provided pt a copy. Initialed, dated, & timed copy in chart.
[2022-05-04] MEDS: pantoprazole 40 mg SDV IVP (11:57)
[2022-05-04 12:04] LABS: Glucose Point of Care 349 mg/dL (70-110)
[2022-05-04 12:04] LABS: Glucose Point of Care 218 mg/dL (70-110)
--- NOTE | 2022-05-04 14:15 | PM.PN ---
Subjective Subjective: Patient was seen and examined this morning, blood sugar was high last evening received 15 units of short acting insulin, states he feels better. Medications: Reviewed: Yes Medication Review Details: Generic Name Dose Route Start Last Admin Trade Name Ochoa PRN Reason Stop Dose Admin Amiodarone HCl 200 mg 04/24/22 09:00 05/03/22 10:19 Amiodarone 200 M g Tablet PO 200 mg DAILY SANTA Administration Amlodipine Besylat e 10 mg 04/24/22 09:00 05/03/22 10:13 Amlodipine 10 Mg Tablet PO 10 mg DAILY SANTA Administration Atorvastatin Calci um 40 mg 04/24/22 09:00 05/03/22 10:13 Atorvastatin 40 Mg Tablet PO 40 mg DAILY S[facility]A Administration Budesonide 0.5 mg 04/24/22 08:00 05/03/22 07:50 Budesonide 0.5 M g/2 Ml Neb INHALATION 0.5 mg BID.RESPIRATORY S [facility] Administration Bumetanide 0.5 mg 04/28/22 08:30 05/03/22 10:18 Bumetanide 0.25 Mg/Ml Sdv 4 Ml IVP 0.5 mg Q12H SANTA Administration Buspirone HCl 15 mg 04/24/22 09:00 05/03/22 10:15 Buspirone 10 Mg Tablet PO 15 mg BID SANTA Administration Cyanocobalamin 500 mcg 05/01/22 09:00 05/03/22 10:13 Cyanocobalamin 1 ,000 Mcg Tablet PO 500 mcg DAILY SANTA Administration Denture Adhesive 1 each 04/25/22 17:39 04/25/22 19:11 Efferdent Efferv escent DENTAL 1 each PRN PRN Administration cleaning dentures Fenofibrate 145 mg 04/24/22 21:00 05/02/22 20:21 Fenofibrate 145 Mg Tablet PO 145 mg BEDTIME SANTA Administration Ferrous Sulfate 325 mg 04/24/22 09:00 05/03/22 10:15 Ferrous Sulfate Ec 325 Mg Tablet PO 325 mg BID SANTA Administration Hydralazine HCl 100 mg 04/24/22 09:00 05/03/22 10:11 Hydralazine 50 M g Tablet PO 100 mg TID SANTA Administration Piperacillin Sod/T azobactam 50 mls @ 12.5 mls /hr 05/02/22 13:00 05/03/22 08:45 Sod 3.375 gm/ So dium Chloride IV Infused Q8H SANTA Infusion Insulin Human Lisp ro 0 unit 05/02/22 08:00 05/03/22 12:11 Insulin Lispro 1 00 Unit/1 Ml SUBCUT 16 unit TIDWM SANTA Administration Protocol Ipratropium Bromid e 0.5 mg 04/24/22 16:00 05/03/22 11:14 Ipratropium 0.5 Mg/2.5 Ml Neb INHALATION 0.5 mg Q4H.RESPIRATORY S [facility] Administration Levothyroxine Sodi um 175 mcg 04/24/22 09:00 05/03/22 10:13 Levothyroxine 17 5 Mcg Tablet PO 175 mcg DAILY SANTA Administration Methylprednisolone Sodium Succinate 40 mg 04/29/22 09:45 05/03/22 10:22 Methylprednisolo ne Sod Succ 40 Mg/ Ml Inj IVP 40 mg Q6H SANTA Administration Metolazone 2.5 mg 04/25/22 09:00 05/03/22 10:19 Metolazone 5 Mg Tablet PO 2.5 mg DAILY SANTA Administration Metoprolol Tartrat e 25 mg 04/27/22 21:00 05/03/22 10:15 Metoprolol Tartr ate 25 Mg Tablet PO 25 mg BID@0900,2100 [facility] Administration Montelukast Sodium 10 mg 04/24/22 09:00 05/03/22 10:15 Montelukast Sodi um 10 Mg Tablet PO 10 mg DAILY SANTA Administration Non-Formulary Medi cation 1,875 mg 04/24/22 09:00 05/03/22 10:20 Colesevelam [Wel chol] PO 1,875 mg BID SANTA Administration Pantoprazole Sodiu m 40 mg 04/24/22 00:16 05/03/22 12:11 Pantoprazole 40 Mg Sdv IVP 40 mg Q12H SANTA Administration Rivaroxaban 15 mg 04/26/22 09:00 05/03/22 10:11 Rivaroxaban 10 M g Tablet PO 15 mg DAILY SANTA Administration Senna/Docusate Sod ium 1 tab 04/30/22 18:00 05/03/22 10:19 Sennosides-Docus ate Tablet PO 1 tab BID SANTA Administration Trazodone HCl 100 mg 04/27/22 21:00 05/02/22 20:21 Trazodone 100 Mg Tablet PO 100 mg BEDTIME SANTA Administration Venlafaxine HCl 150 mg 04/24/22 06:00 05/03/22 04:34 Venlafaxine Er ( 24hr) 150 Mg Capsu le PO 150 mg QAM SANTA Administration Vitals/I&O/Wt Last Vital Signs Temp 97.7 F 05/04/22 08:00 Pulse 87 05/04/22 11:29 Resp 18 05/04/22 11:29 BP 146/85 05/04/22 08:00 Pulse Ox 98 05/04/22 11:29 O2 Del Method 05/04/22 11:29 O2 Flow Rate 10 05/04/22 11:29 FiO2 50 05/04/22 08:00 05/03/22 05/04/22 05/04/22 22:59 06:59 14:59 Intake Total 530 / 1060 50 / 1110 290 / 290 Output Total 2300 / 6150 2950 / 9100 2400 / 2400 Balance -1770 / -5090 -2900 / -7990 -2110 / -2110 Weight last 48 hrs Weight 185.111 kg Weight 186.789 kg Physical Exam Const: COMMON NORMALS: patient oriented x3 Resp: COMMON NORMALS: clear to auscultation bilaterally EFFORT & INSPECTION: Yes symmetric chest movement AUSCULTATION: clear to auscultation bilaterally Cardio: COMMON NORMALS: regular rate, regular rhythm, S1 normal heart sound present, S2 normal heart sound present, No gallops present (Cardio), No murmurs present (Cardio), No rub (Cardio) and Peripheral pulses 2+ throughout RATE: regular rate RHYTHM: regular rhythm HEART SOUNDS: S1 normal heart sound present and S2 normal heart sound present PERIPHERAL PULSES: Peripheral pulses 2+ throughout GI: COMMON NORMALS: Normal to inspection, nondistended, normoactive bowel sounds present, Soft to palpation, non-tender, No hepatosplenomegaly present and no masses AUSCULTATION: Yes normoactive bowel sounds PALPATION: Yes Soft to palpation and Yes No hepatosplenomegaly present RECTAL EXAM: Yes deferred Extremity: COMMON NORMALS: no clubbing, cyanosis or edema and no pedal edema Neuro: COMMON NORMALS: patient oriented x3 Data 05/04/22 03:12 05/04/22 03:12 A&P Assessment and plan (1) Acute on chronic respiratory failure: Patient presents with acute on chronic respiratory failure. He has a complicated presentation secondary to his morbid obesity, obesity hypoventilation, chronic COPD. His respiratory failure is multifactorial. Acute component may be secondary to pneumonia. Slow improvement, but may be stagnating. Down to about 50% FiO2 but when taken off yesterday evening to eat required 12 L . Doubt pneumonia is playing much into the picture currently. (2) Obesity hypoventilation syndrome: Has trilogy at home, continue BiPAP currently (3) Acute kidney injury: Likely has cardiorenal syndrome He continues to diurese. BUN is now starting to rise, and cardiology believes it is prudent to lower his Bumex dose slightly and continue to monitor. I concur. Creatinine is not yet at baseline, and this potentially could be his new baseline considering his need for diuretics Appreciate cardiology consultation, note that they have added Zaroxolyn low-dose. (4) Diabetes mellitus with hyperglycemia, with long-term current use of insulin: Sliding scale insulin Long-acting insulin discontinued secondary to risk of hypoglycemia (5) COPD exacerbation: He has completed his course of prednisone Continue DuoNeb every 4 hours Budesonide inhaled (6) CHF exacerbation: Continue diuresis, currently on Bumex 1 mg IV every 12 hours. Changed to 0.5 mg every 12 hours and continue to monitor electrolytes Echocardiogram was recently done. Appears to mainly have acute diastolic congestive heart failure Appreciate cardiology consultation. Zaroxolyn has been added. He has -10,600 so far this hospital course. (7) Afib: Continue patient's amiodarone. Rate controlled currently. On anticoagulation with rivaroxaban. Reduced to 15 mg daily secondary to renal function (8) Hyperkalemia: Resolved (9) Community acquired bilateral lower lobe pneumonia: CT chest without contrast: Small bilateral pleural effusions with compressive atelectasis in the bilateral lower lobes with air bronchograms. MRSA PCR negative Blood cultures negative COVID, influenza negative Has completed the course of Zosyn as well as Rocephin. Antibiotics have been discontinued. Plan Chronic anemia: FOBT has been positive in past, also has known iron deficiency anemia, has received IV iron currently on oral iron supplements. Monitor H&H as he is on therapeutic anticoagulation Plan for today: Continue with IV diuresis. Zosyn has been discontinued today. Currently continue to be on BiPAP as well as HFNC.Continue to closely monitor H&H. Serum B12: 290: On p.o. vitamin B12 500 mcg p.o. daily, will get repeat serum B12 level in 4-weeks. Worsening leukocytosis: Possibly secondary to steroid use. Most important thing is that pulm medicine service coverage is not available till th of this month, and unfortunately he is an ideal candidate for inpatient pulmonary medicine consult, at some point in time he was following Dr. Dawson as outpatient. CODE STATUS: Full code DVT prophylaxis: Not needed patient is on therapeutic anticoagulation with Xarelto. Attestations Medical Necessity Statement*: Needs to be in hospital for management of chronic respiratory failure. Coding Level of Care Code Acute Code for [facility] Fwd Diagnoses Acute on chronic respiratory failure J96.20 Obesity hypoventilation syndrome E66.2 Acute kidney injury N17.9 Diabetes mellitus with hyperglycemia, with long-term current use of insulin E11.65; Z79.4 COPD exacerbation J44.1 CHF exacerbation I50.9 Afib I48.91 Hyperkalemia E87.5 Community acquired bilateral lower lobe pneumonia J18.9
[2022-05-04 16:48] LABS: Glucose Point of Care 389 mg/dL (70-110)
[2022-05-04] MEDS: pantoprazole DR 40 mg Tablet PO (17:22)
[2022-05-04] MEDS: trazodone 100 mg Tablet PO (20:28)
[2022-05-04] MEDS: metoprolol tartrate 25 mg Tablet PO (20:28)
[2022-05-04 20:35] LABS: Glucose Point of Care 310 mg/dL (70-110)
[2022-05-04] MEDS: insulin glargine 100 units/1 mL 20 UNIT SUBCUT (20:35)
[2022-05-05] VITALS (20 sets, daily range): BP systolic 135–171; BP diastolic 80–94; PULSE 73–96; RESP 12–21; TEMP 36.3–37.1; O2SAT 87–96
[2022-05-05 04:27] LABS: Anion Gap 10.6 (5-19); Blood Urea Nitrogen 45 mg/dL (8-23); Carbon Dioxide 36 mmol/L (22-29); Chloride 95 mmol/L (98-107); Glomerular Filtration Rate 44.2 mL/min (90-130); Glucose 263 mg/dL (65-115); Osmolality Calculated 305 mOsm/kg (285-295); Potassium 4.6 mmol/L (3.5-5.1); Sodium 137 mmol/L (136-145)
[2022-05-05] MEDS: venlafaxine ER (24HR) 150 mg Capsule PO (06:19)
[2022-05-05 06:26] LABS: Glucose Point of Care 268 mg/dL (70-110)
[2022-05-05] MEDS: budesonide 0.5 mg/2 mL Neb INHALATION ×2 (07:38→20:22)
[2022-05-05] MEDS: atorvastatin 40 mg Tablet PO (08:20)
[2022-05-05] MEDS: amiodarone 200 mg Tablet PO (08:21)
[2022-05-05] MEDS: metOLazone 5 MG Tablet 2.5 MG PO (08:21)
[2022-05-05] MEDS: ferrous sulfate EC 325 mg Tablet PO ×2 (08:21→17:07)
[2022-05-05] MEDS: hyDRALAzine 50 mg Tablet 100 MG PO ×3 (08:21→20:35)
[2022-05-05] MEDS: levothyroxine 175 mcg Tablet PO (08:21)
[2022-05-05] MEDS: BuSPIRONE 10 mg Tablet 15 MG PO ×2 (08:21→17:07)
[2022-05-05] MEDS: montelukast sodium 10 mg Tablet PO (08:22)
[2022-05-05] MEDS: sennosides-docusate Tablet 1 TAB PO ×2 (08:22→17:07)
[2022-05-05] MEDS: cyanocobalamin 1,000 mcg Tablet 500 MCG PO (08:22)
[2022-05-05] MEDS: amlodipine 10 mg Tablet PO (08:22)
[2022-05-05] MEDS: rivaroxaban 10 mg Tablet 15 MG PO (08:22)
[2022-05-05] MEDS: NON-FORMULARY MEDICATION (Colesevelam [Welchol] 625 mg tablet) 1875 EACH PO ×2 (08:23→19:17)
[2022-05-05] MEDS: pantoprazole DR 40 mg Tablet PO ×2 (08:23→17:07)
[2022-05-05] MEDS: metoprolol tartrate 25 mg Tablet PO ×2 (08:25→20:43)
[2022-05-05] MEDS: insulin lispro 100 unit/1 mL SUBCUT ×3 (08:28→17:06)
[2022-05-05] MEDS: bumetanide 0.25 mg/mL SDV 4 mL 0.5 MG IVP ×2 (08:30→20:36)
[2022-05-05 11:39] LABS: Glucose Point of Care 211 mg/dL (70-110)
--- NOTE | 2022-05-05 14:39 | P.PN_ITS ---
Subjective Subjective: Patient was seen and examined this morning, diuresing well, feels better. Medications: Reviewed: Yes Medication Review Details: Generic Name Dose Route Start Last Admin Trade Name Freq PRN Reason Stop Dose Admin Amiodarone HCl 200 mg 04/24/22 09:00 05/03/22 10:19 Amiodarone 200 M g Tablet PO 200 mg DAILY SANTA Administration Amlodipine Besylat e 10 mg 04/24/22 09:00 05/03/22 10:13 Amlodipine 10 Mg Tablet PO 10 mg DAILY SANTA Administration Atorvastatin Calci um 40 mg 04/24/22 09:00 05/03/22 10:13 Atorvastatin 40 Mg Tablet PO 40 mg DAILY SANTA Administration Budesonide 0.5 mg 04/24/22 08:00 05/03/22 07:50 Budesonide 0.5 M g/2 Ml Neb INHALATION 0.5 mg BID.RESPIRATORY S [facility] Administration Bumetanide 0.5 mg 04/28/22 08:30 05/03/22 10:18 Bumetanide 0.25 Mg/Ml Sdv 4 Ml IVP 0.5 mg Q12H SANTA Administration Buspirone HCl 15 mg 04/24/22 09:00 05/03/22 10:15 Buspirone 10 Mg Tablet PO 15 mg BID SANTA Administration Cyanocobalamin 500 mcg 05/01/22 09:00 05/03/22 10:13 Cyanocobalamin 1 ,000 Mcg Tablet PO 500 mcg DAILY SANTA Administration Denture Adhesive 1 each 04/25/22 17:39 04/25/22 19:11 Efferdent Efferv escent DENTAL 1 each PRN PRN Administration cleaning dentures Fenofibrate 145 mg 04/24/22 21:00 05/02/22 20:21 Fenofibrate 145 Mg Tablet PO 145 mg BEDTIME SANTA Administration Ferrous Sulfate 325 mg 04/24/22 09:00 05/03/22 10:15 Ferrous Sulfate Ec 325 Mg Tablet PO 325 mg BID SANTA Administration Hydralazine HCl 100 mg 04/24/22 09:00 05/03/22 10:11 Hydralazine 50 M g Tablet PO 100 mg TID SANTA Administration Piperacillin Sod/T azobactam 50 mls @ 12.5 mls /hr 05/02/22 13:00 05/03/22 08:45 Sod 3.375 gm/ So dium Chloride IV Infused Q8H SANTA Infusion Insulin Human Lisp ro 0 unit 05/02/22 08:00 05/03/22 12:11 Insulin Lispro 1 00 Unit/1 Ml SUBCUT 16 unit TIDWM SANTA Administration Protocol Ipratropium Bromid e 0.5 mg 04/24/22 16:00 05/03/22 11:14 Ipratropium 0.5 Mg/2.5 Ml Neb INHALATION 0.5 mg Q4H.RESPIRATORY S [facility] Administration Levothyroxine Sodi um 175 mcg 04/24/22 09:00 05/03/22 10:13 Levothyroxine 17 5 Mcg Tablet PO 175 mcg DAILY SANTA Administration Methylprednisolone Sodium Succinate 40 mg 04/29/22 09:45 05/03/22 10:22 Methylprednisolo ne Sod Succ 40 Mg/ Ml Inj IVP 40 mg Q6H SANTA Administration Metolazone 2.5 mg 04/25/22 09:00 05/03/22 10:19 Metolazone 5 Mg Tablet PO 2.5 mg DAILY SANTA Administration Metoprolol Tartrat e 25 mg 04/27/22 21:00 05/03/22 10:15 Metoprolol Tartr ate 25 Mg Tablet PO 25 mg BID@0900,2100 [facility] Administration Montelukast Sodium 10 mg 04/24/22 09:00 05/03/22 10:15 Montelukast Sodi um 10 Mg Tablet PO 10 mg DAILY SANTA Administration Non-Formulary Medi cation 1,875 mg 04/24/22 09:00 05/03/22 10:20 Colesevelam [Wel chol] PO 1,875 mg BID SANTA Administration Pantoprazole Sodiu m 40 mg 04/24/22 00:16 05/03/22 12:11 Pantoprazole 40 Mg Sdv IVP 40 mg Q12H SANTA Administration Rivaroxaban 15 mg 04/26/22 09:00 05/03/22 10:11 Rivaroxaban 10 M g Tablet PO 15 mg DAILY [facility] Administration Senna/Docusate Sod ium 1 tab 04/30/22 18:00 05/03/22 10:19 Sennosides-Docus ate Tablet PO 1 tab BID [facility] Administration Trazodone HCl 100 mg 04/27/22 21:00 05/02/22 20:21 Trazodone 100 Mg Tablet PO 100 mg BEDTIME SANTA Administration Venlafaxine HCl 150 mg 04/24/22 06:00 05/03/22 04:34 Venlafaxine Er ( 24hr) 150 Mg Capsu le PO 150 mg QAM SANTA Administration Vitals/I&O/Wt Last Vital Signs Temp 98.8 F 05/05/22 07:08 Pulse 81 05/05/22 12:00 Resp 19 H 05/05/22 12:00 BP 135/80 05/05/22 12:00 Pulse Ox 95 05/05/22 11:11 O2 Del Method 05/05/22 12:00 O2 Flow Rate 6 05/05/22 12:00 FiO2 50 05/05/22 12:00 05/04/22 05/05/22 05/05/22 22:59 06:59 14:59 Intake Total 580 / 1110 360 / 360 Output Total 3480 / 8580 3360 / 45572 1300 / 1300 Balance -2900 / -7470 -3360 / -86120 -940 / -940 Weight last 48 hrs Weight 180.643 kg Weight 185.111 kg Physical Exam Const: COMMON NORMALS: patient oriented x3 Resp: COMMON NORMALS: clear to auscultation bilaterally EFFORT & INSPECTION: Yes symmetric chest movement AUSCULTATION: clear to auscultation bilaterally Cardio: COMMON NORMALS: regular rate, regular rhythm, S1 normal heart sound present, S2 normal heart sound present, No gallops present (Cardio), No murmurs present (Cardio), No rub (Cardio) and Peripheral pulses 2+ throughout RATE: regular rate RHYTHM: regular rhythm HEART SOUNDS: S1 normal heart sound present and S2 normal heart sound present PERIPHERAL PULSES: Peripheral pulses 2+ throughout GI: COMMON NORMALS: Normal to inspection, nondistended, normoactive bowel sounds present, Soft to palpation, non-tender, No hepatosplenomegaly present and no masses AUSCULTATION: Yes normoactive bowel sounds PALPATION: Yes Soft to palpation and Yes No hepatosplenomegaly present RECTAL EXAM: Yes deferred Extremity: COMMON NORMALS: no clubbing, cyanosis or edema and no pedal edema Neuro: COMMON NORMALS: patient oriented x3 Data 05/04/22 03:12 05/05/22 03:43 A&P Assessment and plan (1) Acute on chronic respiratory failure: Patient presents with acute on chronic respiratory failure. He has a complicated presentation secondary to his morbid obesity, obesity hypoventilation, chronic COPD. His respiratory failure is multifactorial. Acute component may be secondary to pneumonia. Slow improvement, but may be stagnating. Down to about 50% FiO2 but when taken off yesterday evening to eat required 12 L . Doubt pneumonia is playing much into the picture currently. (2) Obesity hypoventilation syndrome: Has trilogy at home, continue BiPAP currently (3) Acute kidney injury: Likely has cardiorenal syndrome He continues to diurese. BUN is now starting to rise, and cardiology believes it is prudent to lower his Bumex dose slightly and continue to monitor. I concur. Creatinine is not yet at baseline, and this potentially could be his new baseline considering his need for diuretics Appreciate cardiology consultation, note that they have added Zaroxolyn low- dose. (4) Diabetes mellitus with hyperglycemia, with long-term current use of insulin: Sliding scale insulin Long-acting insulin discontinued secondary to risk of hypoglycemia (5) COPD exacerbation: He has completed his course of prednisone Continue DuoNeb every 4 hours Budesonide inhaled (6) CHF exacerbation: Continue diuresis, currently on Bumex 1 mg IV every 12 hours. Changed to 0.5 mg every 12 hours and continue to monitor electrolytes Echocardiogram was recently done. Appears to mainly have acute diastolic congestive heart failure Appreciate cardiology consultation. Zaroxolyn has been added. He has -10,600 so far this hospital course. (7) Afib: Continue patient's amiodarone. Rate controlled currently. On anticoagulation with rivaroxaban. Reduced to 15 mg daily secondary to renal function (8) Hyperkalemia: Resolved (9) Community acquired bilateral lower lobe pneumonia: CT chest without contrast: Small bilateral pleural effusions with compressive atelectasis in the bilateral lower lobes with air bronchograms. MRSA PCR negative Blood cultures negative COVID, influenza negative Has completed the course of Zosyn as well as Rocephin. Antibiotics have been discontinued. Plan Chronic anemia: FOBT has been positive in past, also has known iron deficiency anemia, has received IV iron currently on oral iron supplements. Monitor H&H as he is on therapeutic anticoagulation Plan for today: Continue with IV diuresis. Zosyn has been discontinued today. Currently continue to be on BiPAP as well as HFNC.Continue to closely monitor H&H. Serum B12: 290: On p.o. vitamin B12 500 mcg p.o. daily, will get repeat serum B12 level in 4-weeks. Worsening leukocytosis: Possibly secondary to steroid use. Most important thing is that pulm medicine service coverage is not available till of this month, and unfortunately he is an ideal candidate for inpatient pulmonary medicine consult, at some point in time he was following Dr. Dawson as outpatient. CODE STATUS: Full code DVT prophylaxis: Not needed patient is on therapeutic anticoagulation with Xarelto. Attestations Medical Necessity Statement*: Needs to be in hospital for management of respiratory failure, awaiting placement. Coding Level of Care Code Acute Code for [facility] Fwd Exam Detailed Diagnoses Acute on chronic respiratory failure J96.20 Obesity hypoventilation syndrome E66.2 Acute kidney injury N17.9 Diabetes mellitus with hyperglycemia, with long-term current use of insulin E11.65; Z79.4 COPD exacerbation J44.1 CHF exacerbation I50.9 Afib I48.91 Hyperkalemia E87.5 Community acquired bilateral lower lobe pneumonia J18.9
[2022-05-05 16:57] LABS: Glucose Point of Care 325 mg/dL (70-110)
[2022-05-05 20:31] LABS: Glucose Point of Care 345 mg/dL (70-110)
[2022-05-05] MEDS: trazodone 100 mg Tablet PO (20:35)
[2022-05-05] MEDS: fenofibrate 145 mg Tablet PO (20:35)
[2022-05-05] MEDS: insulin glargine 100 units/1 mL 20 UNIT SUBCUT (20:43)
[2022-05-06] VITALS (19 sets, daily range): BP systolic 125–144; BP diastolic 57–84; PULSE 71–90; RESP 12–30; TEMP 36.3–36.7; O2SAT 88–97
[2022-05-06] MEDS: venlafaxine ER (24HR) 150 mg Capsule PO (05:11)
[2022-05-06 06:26] LABS: Glucose Point of Care 186 mg/dL (70-110)
[2022-05-06] MEDS: insulin lispro 100 unit/1 mL SUBCUT ×3 (07:55→17:40)
[2022-05-06] MEDS: bumetanide 0.25 mg/mL SDV 4 mL 0.5 MG IVP ×2 (07:55→21:33)
[2022-05-06] MEDS: BuSPIRONE 10 mg Tablet 15 MG PO ×2 (08:03→17:41)
[2022-05-06] MEDS: NON-FORMULARY MEDICATION (Colesevelam [Welchol] 625 mg tablet) 1875 EACH PO ×2 (08:04→17:47)
[2022-05-06] MEDS: pantoprazole DR 40 mg Tablet PO ×2 (08:04→17:41)
[2022-05-06] MEDS: hyDRALAzine 50 mg Tablet 100 MG PO ×3 (08:05→21:31)
[2022-05-06] MEDS: metOLazone 5 MG Tablet 2.5 MG PO (08:05)
[2022-05-06] MEDS: levothyroxine 175 mcg Tablet PO (08:06)
[2022-05-06] MEDS: ferrous sulfate EC 325 mg Tablet PO ×2 (08:06→17:42)
[2022-05-06] MEDS: cyanocobalamin 1,000 mcg Tablet 500 MCG PO (08:07)
[2022-05-06] MEDS: rivaroxaban 10 mg Tablet 15 MG PO (08:09)
[2022-05-06] MEDS: predniSONE 20 mg Tablet 40 MG PO (08:09)
[2022-05-06] MEDS: atorvastatin 40 mg Tablet PO (08:09)
[2022-05-06] MEDS: metoprolol tartrate 25 mg Tablet PO ×2 (08:10→21:31)
[2022-05-06] MEDS: amiodarone 200 mg Tablet PO (08:10)
[2022-05-06] MEDS: montelukast sodium 10 mg Tablet PO (08:10)
[2022-05-06] MEDS: amlodipine 10 mg Tablet PO (08:10)
[2022-05-06] MEDS: budesonide 0.5 mg/2 mL Neb INHALATION ×2 (08:17→19:20)
--- NOTE | 2022-05-06 09:56 | PC.SOCIAL ---
IMM Updated Updated pt on IMM. No questions voiced. Provided pt a copy. Initialed, dated, & timed copy in chart.
--- NOTE | 2022-05-06 10:55 | PM.PN ---
Subjective Subjective: Patient was seen and examined this morning, diuresing well, labs were not done done. Medications: Reviewed: Yes Medication Review Details: Generic Name Dose Route Start Last Admin Trade Name Juan Luisq PRN Reason Stop Dose Admin Albuterol Sulfate 2.5 mg 05/03/22 16:00 05/06/22 08:17 Albuterol 2.5 Mg /0.5 Ml Neb INHALATION 2.5 mg Q4H.RESPIRATORY S [facility] Administration Amiodarone HCl 200 mg 04/24/22 09:00 05/06/22 08:10 Amiodarone 200 M g Tablet PO 200 mg DAILY SANTA Administration Amlodipine Besylat e 10 mg 04/24/22 09:00 05/06/22 08:10 Amlodipine 10 Mg Tablet PO 10 mg DAILY SANTA Administration Atorvastatin Calci um 40 mg 04/24/22 09:00 05/06/22 08:09 Atorvastatin 40 Mg Tablet PO 40 mg DAILY SANTA Administration Budesonide 0.5 mg 04/24/22 08:00 05/06/22 08:17 Budesonide 0.5 M g/2 Ml Neb INHALATION 0.5 mg BID.RESPIRATORY S CH Administration Bumetanide 0.5 mg 04/28/22 08:30 05/06/22 07:55 Bumetanide 0.25 Mg/Ml Sdv 4 Ml IVP 0.5 mg Q12H SANTA Administration Buspirone HCl 15 mg 04/24/22 09:00 05/06/22 08:03 Buspirone 10 Mg Tablet PO 15 mg BID SANTA Administration Cyanocobalamin 500 mcg 05/01/22 09:00 05/06/22 08:07 Cyanocobalamin 1 ,000 Mcg Tablet PO 500 mcg DAILY SANTA Administration Denture Adhesive 1 each 04/25/22 17:39 04/25/22 19:11 Efferdent Efferv escent DENTAL 1 each PRN PRN Administration cleaning dentures Fenofibrate 145 mg 04/24/22 21:00 05/05/22 20:35 Fenofibrate 145 Mg Tablet PO 145 mg BEDTIME SANTA Administration Ferrous Sulfate 325 mg 04/24/22 09:00 05/06/22 08:06 Ferrous Sulfate Ec 325 Mg Tablet PO 325 mg BID SANTA Administration Hydralazine HCl 100 mg 04/24/22 09:00 05/06/22 08:05 Hydralazine 50 M g Tablet PO 100 mg TID SANTA Administration Insulin Glargine 20 unit 05/04/22 21:00 05/05/22 20:43 Insulin Glargine 100 Units/1 Ml SUBCUT 20 unit BEDTIME SANTA Administration Insulin Human Lisp ro 0 unit 05/04/22 08:00 05/06/22 07:55 Insulin Lispro 1 00 Unit/1 Ml SUBCUT 4 unit TIDWM SANTA Administration Protocol Levothyroxine Sodi um 175 mcg 04/24/22 09:00 05/06/22 08:06 Levothyroxine 17 5 Mcg Tablet PO 175 mcg DAILY SANTA Administration Metolazone 2.5 mg 04/25/22 09:00 05/06/22 08:05 Metolazone 5 Mg Tablet PO 2.5 mg DAILY SANTA Administration Metoprolol Tartrat e 25 mg 04/27/22 21:00 05/06/22 08:10 Metoprolol Tartr ate 25 Mg Tablet PO 25 mg BID@0900,2100 [facility] Administration Montelukast Sodium 10 mg 04/24/22 09:00 05/06/22 08:10 Montelukast Sodi um 10 Mg Tablet PO 10 mg DAILY [facility] Administration Non-Formulary Medi cation 1,875 mg 04/24/22 09:00 05/06/22 08:04 Colesevelam [Wel chol] PO 1,875 mg BID SANTA Administration Pantoprazole Sodiu m 40 mg 05/04/22 18:00 05/06/22 08:[address] 40 Mg Tablet PO 40 mg BID SANTA Administration Prednisone 40 mg 05/06/22 09:00 05/06/22 08:09 Prednisone 20 Mg Tablet PO 40 mg DAILY SANTA Administration Rivaroxaban 15 mg 04/26/22 09:00 05/06/22 08:09 Rivaroxaban 10 M g Tablet PO 15 mg DAILY [facility] Administration Senna/Docusate Sod ium 1 tab 04/30/22 18:00 05/06/22 08:08 Sennosides-Docus ate Tablet PO Not Given BID SANTA Trazodone HCl 100 mg 04/27/22 21:00 05/05/22 20:35 Trazodone 100 Mg Tablet PO 100 mg BEDTIME SANTA Administration Venlafaxine HCl 150 mg 04/24/22 06:00 05/06/22 05:11 Venlafaxine Er ( 24hr) 150 Mg Capsu le PO 150 mg QAM SANTA Administration Vitals/I&O/Wt Last Vital Signs Temp 98.1 F 05/06/22 09:25 Pulse 90 05/06/22 09:25 Resp 30 H 05/06/22 09:25 BP 144/83 05/06/22 09:25 Pulse Ox 96 05/06/22 09:25 O2 Del Method 05/06/22 08:18 O2 Flow Rate 6 05/06/22 08:18 FiO2 50 05/05/22 20:00 05/05/22 05/06/22 05/06/22 22:59 06:59 14:59 Intake Total 440 / 800 620 / 620 Output Total 2250 / 3550 1550 / 5100 Balance -1810 / -2750 -1550 / -4300 620 / 620 Weight last 48 hrs Weight 176.629 kg Weight 180.643 kg Physical Exam Const: COMMON NORMALS: patient oriented x3 Resp: COMMON NORMALS: clear to auscultation bilaterally EFFORT & INSPECTION: Yes symmetric chest movement AUSCULTATION: clear to auscultation bilaterally Cardio: COMMON NORMALS: regular rate, regular rhythm, S1 normal heart sound present, S2 normal heart sound present, No gallops present (Cardio), No murmurs present (Cardio), No rub (Cardio) and Peripheral pulses 2+ throughout RATE: regular rate RHYTHM: regular rhythm HEART SOUNDS: S1 normal heart sound present and S2 normal heart sound present PERIPHERAL PULSES: Peripheral pulses 2+ throughout GI: COMMON NORMALS: Normal to inspection, nondistended, normoactive bowel sounds present, Soft to palpation, non-tender, No hepatosplenomegaly present and no masses AUSCULTATION: Yes normoactive bowel sounds PALPATION: Yes Soft to palpation and Yes No hepatosplenomegaly present RECTAL EXAM: Yes deferred Extremity: COMMON NORMALS: no clubbing, cyanosis or edema and no pedal edema Neuro: COMMON NORMALS: patient oriented x3 Urinary Catheter Management: Jiménez: Cath Placed During This Visit: no Reason for Continuing Indwelling Catheter: Accurate Measurement of Urinary Output in Critically Ill Patients Data 05/04/22 03:12 05/05/22 03:43 A&P Assessment and plan (1) Acute on chronic respiratory failure: Patient presents with acute on chronic respiratory failure. He has a complicated presentation secondary to his morbid obesity, obesity hypoventilation, chronic COPD. His respiratory failure is multifactorial. Acute component may be secondary to pneumonia. Slow improvement, but may be stagnating. Down to about 50% FiO2 but when taken off yesterday evening to eat required 12 L . Doubt pneumonia is playing much into the picture currently. (2) Obesity hypoventilation syndrome: Has trilogy at home, continue BiPAP currently (3) Acute kidney injury: Likely has cardiorenal syndrome He continues to diurese. BUN is now starting to rise, and cardiology believes it is prudent to lower his Bumex dose slightly and continue to monitor. I concur. Creatinine is not yet at baseline, and this potentially could be his new baseline considering his need for diuretics Appreciate cardiology consultation, note that they have added Zaroxolyn low-dose. (4) Diabetes mellitus with hyperglycemia, with long-term current use of insulin: Sliding scale insulin Long-acting insulin discontinued secondary to risk of hypoglycemia (5) COPD exacerbation: He has completed his course of prednisone Continue DuoNeb every 4 hours Budesonide inhaled (6) CHF exacerbation: Continue diuresis, currently on Bumex 1 mg IV every 12 hours. Changed to 0.5 mg every 12 hours and continue to monitor electrolytes Echocardiogram was recently done. Appears to mainly have acute diastolic congestive heart failure Appreciate cardiology consultation. Zaroxolyn has been added. He has -10,600 so far this hospital course. (7) Afib: Continue patient's amiodarone. Rate controlled currently. On anticoagulation with rivaroxaban. Reduced to 15 mg daily secondary to renal function (8) Hyperkalemia: Resolved (9) Community acquired bilateral lower lobe pneumonia: CT chest without contrast: Small bilateral pleural effusions with compressive atelectasis in the bilateral lower lobes with air bronchograms. MRSA PCR negative Blood cultures negative COVID, influenza negative Has completed the course of Zosyn as well as Rocephin. Antibiotics have been discontinued. Plan Chronic anemia: FOBT has been positive in past, also has known iron deficiency anemia, has received IV iron currently on oral iron supplements. Monitor H&H as he is on therapeutic anticoagulation Plan for today: Continue with IV diuresis. Zosyn has been discontinued. Currently continue to be on BiPAP as well as HFNC.Continue to closely monitor H&H. Serum B12: 290: On p.o. vitamin B12 500 mcg p.o. daily, will get repeat serum B12 level in 4-weeks. Worsening leukocytosis: Possibly secondary to steroid use. Most important thing is that pulm medicine service coverage is not available till of this month, and unfortunately he is an ideal candidate for inpatient pulmonary medicine consult, at some point in time he was following Dr. Dawson as outpatient. CODE STATUS: Full code DVT prophylaxis: Not needed patient is on therapeutic anticoagulation with Xarelto. Attestations Medical Necessity Statement*: needs to be in hospital for management of chronic respiratory failure. Coding Level of Care Code Acute Code for g Fwd Diagnoses Acute on chronic respiratory failure J96.20 Obesity hypoventilation syndrome E66.2 Acute kidney injury N17.9 Diabetes mellitus with hyperglycemia, with long-term current use of insulin E11.65; Z79.4 COPD exacerbation J44.1 CHF exacerbation I50.9 Afib I48.91 Hyperkalemia E87.5 Community acquired bilateral lower lobe pneumonia J18.9
[2022-05-06 11:39] LABS: Glucose Point of Care 249 mg/dL (70-110)
[2022-05-06 20:44] LABS: Glucose Point of Care 412 mg/dL (70-110)
[2022-05-06] MEDS: fenofibrate 145 mg Tablet PO (21:31)
[2022-05-06] MEDS: trazodone 100 mg Tablet PO (21:31)
[2022-05-06] MEDS: insulin glargine 100 units/1 mL 20 UNIT SUBCUT (21:33)
[2022-05-06] MEDS: insulin lispro 100 unit/1 mL 10 UNIT SUBCUT (21:34)
[2022-05-07] VITALS (19 sets, daily range): BP systolic 102–125; BP diastolic 62–82; PULSE 65–87; RESP 12–22; TEMP 36.4–37.1; O2SAT 91–96
[2022-05-07] MEDS: venlafaxine ER (24HR) 150 mg Capsule PO (05:24)
[2022-05-07 05:56] LABS: Anion Gap 10.8 (5-19); Blood Urea Nitrogen 52 mg/dL (8-23); Calcium 9.3 mg/dL (8.5-10.5); Carbon Dioxide 37 mmol/L (22-29); Chloride 95 mmol/L (98-107); Glomerular Filtration Rate 38.6 mL/min (90-130); Glucose 157 mg/dL (65-115); Osmolality Calculated 305 mOsm/kg (285-295); Potassium 3.8 mmol/L (3.5-5.1); Sodium 139 mmol/L (136-145)
[2022-05-07 06:24] LABS: Glucose Point of Care 161 mg/dL (70-110)
[2022-05-07] MEDS: insulin lispro 100 unit/1 mL SUBCUT ×4 (07:29→17:34)
[2022-05-07] MEDS: budesonide 0.5 mg/2 mL Neb INHALATION ×2 (07:37→19:41)
[2022-05-07] MEDS: NON-FORMULARY MEDICATION (Colesevelam [Welchol] 625 mg tablet) 1875 EACH PO ×2 (08:09→17:32)
[2022-05-07] MEDS: amlodipine 10 mg Tablet PO (08:10)
[2022-05-07] MEDS: montelukast sodium 10 mg Tablet PO (08:10)
[2022-05-07] MEDS: amiodarone 200 mg Tablet PO (08:10)
[2022-05-07] MEDS: levothyroxine 175 mcg Tablet PO (08:10)
[2022-05-07] MEDS: BuSPIRONE 10 mg Tablet 15 MG PO ×2 (08:11→17:30)
[2022-05-07] MEDS: rivaroxaban 10 mg Tablet 15 MG PO (08:12)
[2022-05-07] MEDS: atorvastatin 40 mg Tablet PO (08:13)
[2022-05-07] MEDS: metOLazone 5 MG Tablet 2.5 MG PO (08:13)
[2022-05-07] MEDS: predniSONE 20 mg Tablet 40 MG PO (08:13)
[2022-05-07] MEDS: pantoprazole DR 40 mg Tablet PO ×2 (08:14→17:30)
[2022-05-07] MEDS: cyanocobalamin 1,000 mcg Tablet 500 MCG PO (08:14)
[2022-05-07] MEDS: metoprolol tartrate 25 mg Tablet PO ×2 (08:15→20:40)
[2022-05-07] MEDS: ferrous sulfate EC 325 mg Tablet PO ×2 (08:15→17:30)
[2022-05-07] MEDS: hyDRALAzine 50 mg Tablet 100 MG PO ×3 (08:16→20:39)
[2022-05-07] MEDS: sennosides-docusate Tablet 1 TAB PO ×2 (08:17→17:30)
[2022-05-07] MEDS: bumetanide 0.25 mg/mL SDV 4 mL 0.5 MG IVP (08:18)
[2022-05-07 11:09] LABS: Glucose Point of Care 320 mg/dL (70-110)
--- NOTE | 2022-05-07 11:26 | P.PN_ITS ---
Subjective Subjective: Patient was seen and examined this morning, diuresing well, blood sugar has been uncontrolled, has received 10 u extra short acting insulin, continue to diurese well, will switch him to p.o. Bumex. Medications: Reviewed: Yes Medication Review Details: Generic Name Dose Route Start Last Admin Trade Name Freq PRN Reason Stop Dose Admin Albuterol Sulfate 2.5 mg 05/03/22 16:00 05/07/22 11:07 Albuterol 2.5 Mg /0.5 Ml Neb INHALATION 2.5 mg Q4H.RESPIRATORY S CH Administration Amiodarone HCl 200 mg 04/24/22 09:00 05/07/22 08:10 Amiodarone 200 M g Tablet PO 200 mg DAILY SANTA Administration Amlodipine Besylat e 10 mg 04/24/22 09:00 05/07/22 08:10 Amlodipine 10 Mg Tablet PO 10 mg DAILY SANTA Administration Atorvastatin Calci um 40 mg 04/24/22 09:00 05/07/22 08:13 Atorvastatin 40 Mg Tablet PO 40 mg DAILY SANTA Administration Budesonide 0.5 mg 04/24/22 08:00 05/07/22 07:37 Budesonide 0.5 M g/2 Ml Neb INHALATION 0.5 mg BID.RESPIRATORY S CH Administration Buspirone HCl 15 mg 04/24/22 09:00 05/07/22 08:11 Buspirone 10 Mg Tablet PO 15 mg BID SANTA Administration Cyanocobalamin 500 mcg 05/01/22 09:00 05/07/22 08:14 Cyanocobalamin 1 ,000 Mcg Tablet PO 500 mcg DAILY SANTA Administration Denture Adhesive 1 each 04/25/22 17:39 04/25/22 19:11 Efferdent Efferv escent DENTAL 1 each PRN PRN Administration cleaning dentures Fenofibrate 145 mg 04/24/22 21:00 05/06/22 21:31 Fenofibrate 145 Mg Tablet PO 145 mg BEDTIME SANTA Administration Ferrous Sulfate 325 mg 04/24/22 09:00 05/07/22 08:15 Ferrous Sulfate Ec 325 Mg Tablet PO 325 mg BID SANTA Administration Hydralazine HCl 100 mg 04/24/22 09:00 05/07/22 08:16 Hydralazine 50 M g Tablet PO 100 mg TID SANTA Administration Insulin Glargine 20 unit 05/04/22 21:00 05/06/22 21:33 Insulin Glargine 100 Units/1 Ml SUBCUT 20 unit BEDTIME SANTA Administration Insulin Human Lisp ro 0 unit 05/04/22 08:00 05/07/22 07:29 Insulin Lispro 1 00 Unit/1 Ml SUBCUT 4 unit TIDWM SANTA Administration Protocol Levothyroxine Sodi um 175 mcg 04/24/22 09:00 05/07/22 08:10 Levothyroxine 17 5 Mcg Tablet PO 175 mcg DAILY SANTA Administration Metolazone 2.5 mg 04/25/22 09:00 05/07/22 08:13 Metolazone 5 Mg Tablet PO 2.5 mg DAILY SANTA Administration Metoprolol Tartrat e 25 mg 04/27/22 21:00 05/07/22 08:15 Metoprolol Tartr ate 25 Mg Tablet PO 25 mg BID@0900,2100 [facility] Administration Montelukast Sodium 10 mg 04/24/22 09:00 05/07/22 08:10 Montelukast Sodi um 10 Mg Tablet PO 10 mg DAILY SANTA Administration Non-Formulary Medi cation 1,875 mg 04/24/22 09:00 05/07/22 08:09 Colesevelam [Wel chol] PO 1,875 mg BID SANTA Administration Pantoprazole Sodiu m 40 mg 05/04/22 18:00 05/07/22 08:[address] 40 Mg Tablet PO 40 mg BID SANTA Administration Prednisone 40 mg 05/06/22 09:00 05/07/22 08:13 Prednisone 20 Mg Tablet PO 40 mg DAILY SANTA Administration Rivaroxaban 15 mg 04/26/22 09:00 05/07/22 08:12 Rivaroxaban 10 M g Tablet PO 15 mg DAILY SANTA Administration Senna/Docusate Sod ium 1 tab 04/30/22 18:00 05/07/22 08:17 Sennosides-Docus ate Tablet PO 1 tab BID SANTA Administration Trazodone HCl 100 mg 04/27/22 21:00 05/06/22 21:31 Trazodone 100 Mg Tablet PO 100 mg BEDTIME SANTA Administration Venlafaxine HCl 150 mg 04/24/22 06:00 05/07/22 05:24 Venlafaxine Er ( 24hr) 150 Mg Capsu le PO 150 mg QAM SANTA Administration Vitals/I&O/Wt Last Vital Signs Temp 97.9 F 05/07/22 08:00 Pulse 70 05/07/22 11:12 Resp 18 05/07/22 11:08 BP 115/62 05/07/22 08:00 Pulse Ox 96 05/07/22 11:08 O2 Del Method 05/07/22 11:08 O2 Flow Rate 6 05/07/22 11:08 FiO2 50 05/05/22 20:00 05/06/22 05/07/22 05/07/22 22:59 06:59 14:59 Intake Total 500 / 1220 360 / 360 Output Total 1150 / 3300 2450 / 5750 700 / 700 Balance -650 / -2080 -2450 / -4530 -340 / -340 Weight last 48 hrs Weight 173.182 kg Weight 176.629 kg Physical Exam Const: COMMON NORMALS: patient oriented x3 Resp: COMMON NORMALS: clear to auscultation bilaterally EFFORT & INSPECTIO N: Yes symmetric chest movement AUSCULTATION: clear to auscultation bilaterally Cardio: COMMON NORMALS: regular rate, regular rhythm, S1 normal heart sound present, S2 normal heart sound present, No gallops present (Cardio), No murmurs present (Cardio), No rub (Cardio) and Peripheral pulses 2+ throughout RATE: regular rate RHYTHM: regular rhythm HEART SOUNDS: S1 normal heart sound present and S2 normal heart sound present PERIPHERAL PULSES: Peripheral pulses 2+ throughout GI: COMMON NORMALS: Normal to inspection, nondistended, normoactive bowel sounds present, Soft to palpation, non-tender, No hepatosplenomegaly present and no masses AUSCULTATION: Yes normoactive bowel sounds PALPATION: Yes Soft to palpation and Yes No hepatosplenomegaly present RECTAL EXAM: Yes deferred Extremity: COMMON NORMALS: no clubbing, cyanosis or edema and no pedal edema Neuro: COMMON NORMALS: patient oriented x3 Urinary Catheter Management: Jiménez: Cath Placed During This Visit: no Reason for Continuing Indwelling Catheter: Accurate Measurement of Urinary Output in Critically Ill Patients Data 05/04/22 03:12 05/07/22 04:53 A&P Assessment and plan (1) Acute on chronic respiratory failure: Patient presents with acute on chronic respiratory failure. He has a complicated presentation secondary to his morbid obesity, obesity hypoventilation, chronic COPD. His respiratory failure is multifactorial. Acute component may be secondary to pneumonia. Currently requiring 6-10 Ls oxygen through HFNC, which is his usual baseline. Has completed antibiotic course for pneumonia. (2) Obesity hypoventilation syndrome: Has trilogy at home, was on BiPAP. (3) Acute kidney injury: Likely has cardiorenal syndrome Currently diuresing well serum creatinine and BUN is well within the acceptable limits. Continue to monitor BMP closely Continue intake output charting Avoid nephrotoxic's Continue with prudent diuresis (initially was on 0.5 mg Bumex IV twice daily, has been switched to Bumex 2 mg p.o. daily, continue with metolazone 2.5 mg p.o. daily) Continue to have robust urine output. (4) Diabetes mellitus with hyperglycemia, with long-term current use of insulin: Currently on Lantus 20 subcu at nighttime,MDSSI, Monitor fingerstick glucose. Fingerstick glucose at times have been high because she was on high-dose of steroids. (5) COPD exacerbation: Initially was on IV Solu-Medrol has been transitioned to p.o. prednisone Budesonide inhaled DuoNebs (6) CHF exacerbation: Decompensated heart failure with preserved ejection fraction Most recent 2D echo results appreciated: Continue with prudent diuresis (initially was on 1-> 0.5 mg Bumex IV twice daily, has been switched to Bumex 2 mg p.o. daily, continue with metolazone 2.5 mg p.o. daily) Appreciate cardiology consultation. (7) Afib: Continue patient's amiodarone. Rate controlled currently. On anticoagulation with rivaroxaban. Reduced to 15 mg daily secondary to renal function (8) Hyperkalemia: Resolved (9) Community acquired bilateral lower lobe pneumonia: CT chest without contrast: Small bilateral pleural effusions with compressive atelectasis in the bilateral lower lobes with air bronchograms. MRSA PCR negative Blood cultures negative COVID, influenza negative Has completed the course of Zosyn as well as Rocephin. Antibiotics have been discontinued. Plan Chronic anemia: FOBT has been positive in past, also has known iron deficiency anemia, has received IV iron currently on oral iron supplements. Monitor H&H as he is on therapeutic anticoagulation Plan for today: Continue with diuresis. Zosyn has been discontinued. Currently continue to be on BiPAP as well as HFNC.Continue to closely monitor H&H. Serum B12: 290: On p.o. vitamin B12 500 mcg p.o. daily, will get repeat serum B12 level in 4-weeks. Worsening leukocytosis: Possibly secondary to steroid use. Most important thing is that pulm medicine service coverage is not available till th of this month, and unfortunately he is an ideal candidate for inpatient pulmonary medicine consult, at some point in time he was following Dr. Dawson as outpatient. CODE STATUS: Full code DVT prophylaxis: Not needed patient is on therapeutic anticoagulation with Xarelto. Attestations Medical Necessity Statement*: Needs to be in hospital for chronic respiratory failure, awaiting placement. Coding Level of Care Code Acute Code for Chg Fwd Diagnoses Acute on chronic respiratory failure J96.20 Obesity hypoventilation syndrome E66.2 Acute kidney injury N17.9 Diabetes mellitus with hyperglycemia, with long-term current use of insulin E11.65; Z79.4 COPD exacerbation J44.1 CHF exacerbation I50.9 Afib I48.91 Hyperkalemia E87.5 Community acquired bilateral lower lobe pneumonia J18.9
[2022-05-07] MEDS: insulin glargine 100 units/1 mL 20 UNIT SUBCUT ×2 (12:07→20:40)
[2022-05-07 17:24] LABS: Glucose Point of Care 472 mg/dL (70-110)
[2022-05-07] MEDS: trazodone 100 mg Tablet PO (20:40)
[2022-05-07] MEDS: fenofibrate 145 mg Tablet PO (20:40)
[2022-05-07 20:43] LABS: Glucose Point of Care 377 mg/dL (70-110)
[2022-05-08] VITALS (19 sets, daily range): BP systolic 114–129; BP diastolic 55–73; PULSE 62–84; RESP 13–21; TEMP 36.1–36.7; O2SAT 90–96; BMI 53.4
[2022-05-08 04:05] LABS: Basophils % 0.1 %; Eosinophils # 0.1 10^3/uL (0.0-0.8); Eosinophils % 0.4 %; Hematocrit 31.3 % (42.0-52.0); Hemoglobin 9.6 g/dL (11.7-16.6); Lymphocytes # 2.5 10^3/uL (0.8-4.8); Lymphocytes % 13.4 %; Mean Corpuscular HGB Conc 30.7 g/dL (30.0-36.0); Mean Corpuscular Hemoglobin 28.2 pg (28.0-34.0); Mean Corpuscular Volume 91.8 fl (80-94); Mean Platelet Volume 10.4 fL (7.4-10.4); Monocytes # 1.3 10^3/uL (0.2-0.9); Monocytes % 6.7 %; Neutrophils % 78.3 %; Nucleated Red Blood Cells % 0 %; Platelet Count 281 10^3/cmm (130-400); Red Blood Count 3.41 10^6/uL (4.1-5.3); White Blood Count 18.9 10^3/uL (4.0-10.0)
[2022-05-08 04:35] LABS: Anion Gap 10.6 (5-19); Blood Urea Nitrogen 46 mg/dL (8-23); Calcium 8.5 mg/dL (8.5-10.5); Carbon Dioxide 33 mmol/L (22-29); Chloride 93 mmol/L (98-107); Glomerular Filtration Rate 36.2 mL/min (90-130); Glucose 236 mg/dL (65-115); Osmolality Calculated 296 mOsm/kg (285-295); Potassium 3.6 mmol/L (3.5-5.1); Sodium 133 mmol/L (136-145)
[2022-05-08] MEDS: venlafaxine ER (24HR) 150 mg Capsule PO (05:12)
[2022-05-08 06:43] LABS: Glucose Point of Care 201 mg/dL (70-110)
[2022-05-08] MEDS: budesonide 0.5 mg/2 mL Neb INHALATION ×2 (08:06→20:37)
[2022-05-08] MEDS: amiodarone 200 mg Tablet PO (08:37)
[2022-05-08] MEDS: bumetanide 1 mg Tablet 2 MG PO (08:37)
[2022-05-08] MEDS: atorvastatin 40 mg Tablet PO (08:37)
[2022-05-08] MEDS: metOLazone 5 MG Tablet 2.5 MG PO (08:37)
[2022-05-08] MEDS: BuSPIRONE 10 mg Tablet 15 MG PO ×2 (08:37→17:07)
[2022-05-08] MEDS: levothyroxine 175 mcg Tablet PO (08:37)
[2022-05-08] MEDS: montelukast sodium 10 mg Tablet PO (08:37)
[2022-05-08] MEDS: hyDRALAzine 50 mg Tablet 100 MG PO ×3 (08:38→21:07)
[2022-05-08] MEDS: pantoprazole DR 40 mg Tablet PO ×2 (08:38→17:08)
[2022-05-08] MEDS: sennosides-docusate Tablet 1 TAB PO ×2 (08:38→17:08)
[2022-05-08] MEDS: amlodipine 10 mg Tablet PO (08:38)
[2022-05-08] MEDS: ferrous sulfate EC 325 mg Tablet PO ×2 (08:38→17:08)
[2022-05-08] MEDS: predniSONE 20 mg Tablet 40 MG PO (08:38)
[2022-05-08] MEDS: cyanocobalamin 1,000 mcg Tablet 500 MCG PO (08:39)
[2022-05-08] MEDS: rivaroxaban 10 mg Tablet 15 MG PO (08:39)
[2022-05-08] MEDS: NON-FORMULARY MEDICATION (Colesevelam [Welchol] 625 mg tablet) 1875 EACH PO ×2 (08:44→17:08)
[2022-05-08] MEDS: insulin lispro 100 unit/1 mL SUBCUT ×4 (08:44→21:09)
[2022-05-08] MEDS: metoprolol tartrate 25 mg Tablet PO ×2 (09:23→21:07)
[2022-05-08 11:13] LABS: Glucose Point of Care 190 mg/dL (70-110)
--- NOTE | 2022-05-08 11:27 | P.PN_ITS ---
Subjective Subjective: Patient is stable. Has diuresed well. Vitals/I&O/Wt Last Vital Signs Temp 97.8 F 05/08/22 07:24 Pulse 71 05/08/22 08:10 Resp 18 05/08/22 08:07 BP 129/64 05/08/22 07:24 Pulse Ox 93 05/08/22 08:07 O2 Del Method 05/08/22 08:07 O2 Flow Rate 5 05/08/22 08:07 FiO2 50 05/08/22 08:00 05/07/22 05/08/22 05/08/22 22:59 06:59 14:59 Intake Total 480 / 1200 360 / 360 Output Total 800 / 1500 2300 / 3800 600 / 600 Balance -320 / -300 -2300 / -2600 -240 / -240 Weight last 48 hrs Weight 383 lb 9 oz Weight 381 lb 12.8 oz Physical Exam Narrative: GENERAL: Patient is alert, awake and oriented x3. NECK: No jugular vein distension. [] HEENT: No cyanosis. No icterus. No pallor. [] HEART: Regular S1 and S2. No murmur, rub or gallop. [] LUNGS:Diminished breath sounds CENTRAL NERVOUS SYSTEM: Grossly nonfocal. [] EXTREMITIES: Lower extremities with 1+ edema bilaterally. Urinary Catheter Management: Jiménez: Cath Placed During This Visit: no Reason for Continuing Indwelling Catheter: Other Data 05/08/22 03:07 05/08/22 03:07 A&P Assessment and plan (1) Afib: (2) Acute kidney injury: (3) Acute on chronic respiratory failure: (4) COPD exacerbation: (5) CHF exacerbation: (6) Diabetes mellitus with hyperglycemia, with long-term current use of insulin: (7) EDGAR (obstructive sleep apnea): (8) Hyperlipemia: Qualifiers: Hyperlipidemia type: mixed hyperlipidemia Qualified Code(s): E78.2 - Mixed hyperlipidemia (9) Chronic diastolic (congestive) heart failure: Plan Patient is stable. Continue diuresis. Close renal function monitoring. Thank you for involving us with care of this patient. We will sign off. Please call with questions. Attestations Medical Necessity Statement*: Care expected to cross 2 midnights. Coding Level of Care Code Acute Code for [facility] Fwd Diagnoses Afib I48.91 Acute kidney injury N17.9 Acute on chronic respiratory failure J96.20 COPD exacerbation J44.1 CHF exacerbation I50.9 Diabetes mellitus with hyperglycemia, with long-term current use of insulin E11.65; Z79.4 EDGAR (obstructive sleep apnea) G47.33 Hyperlipemia E78.2 Hyperlipidemia type: mixed hyperlipidemia Chronic diastolic (congestive) heart failure I50.32
--- NOTE | 2022-05-08 12:46 | PM.PN ---
Subjective Subjective: Hospital course, labs appreciated. Today morning seen while sitting up in the recliner with spouse at bedside. Patient is on 5 L on oxygen supplementation. States he has been able to walk with a walker up and down the hallway. Worked well with CPAP overnight. Denies any nausea, vomiting, headache. Documented urine output of around 3.7 L in last 24 hours. Vitals/I&O/Wt Last Vital Signs Temp 97.8 F 05/08/22 07:24 Pulse 71 05/08/22 11:30 Resp 16 05/08/22 11:28 BP 129/64 05/08/22 07:24 Pulse Ox 92 05/08/22 11:28 O2 Del Method 05/08/22 11:28 O2 Flow Rate 5 05/08/22 11:28 FiO2 50 05/08/22 08:00 05/07/22 05/08/22 05/08/22 22:59 06:59 14:59 Intake Total 480 / 1200 840 / 840 Output Total 800 / 1500 2300 / 3800 600 / 600 Balance -320 / -300 -2300 / -2600 240 / 240 Weight last 48 hrs Weight 173.981 kg Weight 173.182 kg Physical Exam Narrative: General exam is a white male, no distress on 5 L oxygen supplementation Neck is supple Cardiovascular regular rate and rhythm without murmur Lungs diminished breath sounds bilaterally. No audible wheezing Abdomen is soft, obese. Bowel sounds evident. Still has some edema below his umbilicus exam demonstrates Jiménez Extremities show evidence of venous stasis. No significant edema Skin no rash Urinary Catheter Management: Jiménez: Cath Placed During This Visit: no Reason for Continuing Indwelling Catheter: Other Data 05/08/22 03:07 05/08/22 03:07 A&P Assessment and plan (1) Acute on chronic respiratory failure: Patient presents with acute on chronic respiratory failure. He has a complicated presentation secondary to his morbid obesity, obesity hypoventilation, chronic COPD. His respiratory failure is multifactorial. Acute component may be secondary to pneumonia. Currently requiring 5 Ls oxygen through [facility], which is his usual baseline. Has completed antibiotic course for pneumonia. (2) Obesity hypoventilation syndrome: Has trilogy at home, was on BiPAP. (3) Acute kidney injury: Baseline creatinine at dry weight seems to be running from 1.7-1.9. Creatinine at baseline currently. Likely has cardiorenal syndrome Monitor BMP daily. Continue intake output charting Medical reconciliation done for nephrotoxic drugs. Continue with prudent diuresis. Continue with Bumex 2 mg oral daily, metolazone 2.5 mg oral daily. As per charting around 57 L negative. (4) Diabetes mellitus with hyperglycemia, with long-term current use of insulin: Blood sugars occasionally elevated most likely secondary to steroids. Change insulin sliding scale at moderate dose protocol before meals and at bedtime. Increase Lantus to 30 units (5) COPD exacerbation: DuoNebs every 6 hours, budesonide twice daily. Prednisone 40 mg oral daily for next 5 days. Weaning down from IV Solu-Medrol. (6) CHF exacerbation: Decompensated heart failure with preserved ejection fraction Most recent 2D echo results appreciated: Continue with diuresis as above. Appreciate cardiology consultation. (7) Afib: Continue with oral amiodarone and metoprolol. Switch Xarelto to 20 mg oral daily. Creatinine clearance of 100. (8) Hyperkalemia: Resolved (9) Community acquired bilateral lower lobe pneumonia: Resolved. Finished course of IV antibiotics. Plan Chronic anemia: FOBT has been positive in past, also has known iron deficiency anemia, has received IV iron currently on oral iron supplements. Monitor H&H as he is on therapeutic anticoagulation Serum B12: 290: On p.o. vitamin B12 500 mcg p.o. daily, will get repeat serum B12 level in 4-weeks. Leukocytosis: Patient has remained afebrile. Hemodynamically stable. Possibly secondary to steroid use. CODE STATUS: Full code DVT prophylaxis: Not needed patient is on therapeutic anticoagulation with Xarelto. Discharge planning: Patient would need to be discharged to possible SNF but unfortunately has been declined from multiple places. Patient would benefit from a long-term care facility given high chance of readmission, respiratory failure or even . Patient has been declined by insurance for [facility]. Appeal has been filed in. If unable to get to [facility] within the next 48 hours can plan to discharge home with home health. Patient and family agreeable. Attestations Medical Necessity Statement*: Requires further hospitalization for management of acute on chronic hypoxic and hypercapnic respiratory failure in setting of morbid obesity, hypoventilation syndrome, while safe discharge planning is sought given chances of recurrent admission and possibly . Coding Level of Care Code 68373 Moderate MDM includes risk/complexity, reviewing previous or external records, reviewing test results, ordering lab/other test(s), speaking with independent historian (other than patient) and independently interpretating test(s) (not separately recorded) and Moderate Time for a total of 35 minutes, includes reviewing past or interval history, examining/interviewing patient, placing orders, counseling patient/family/other support, updating patient/family/other support, discussing plan of care with staff, communicating with other healthcare providers, documenting encounter and coordinating care Diagnoses Acute on chronic respiratory failure J96.20 Obesity hypoventilation syndrome E66.2 Acute kidney injury N17.9 Diabetes mellitus with hyperglycemia, with long-term current use of insulin E11.65; Z79.4 COPD exacerbation J44.1 CHF exacerbation I50.9 Afib I48.91 Hyperkalemia E87.5 Community acquired bilateral lower lobe pneumonia J18.9
[2022-05-08 16:45] LABS: Glucose Point of Care 446 mg/dL (70-110)
[2022-05-08 20:31] LABS: Glucose Point of Care 396 mg/dL (70-110)
[2022-05-08] MEDS: trazodone 100 mg Tablet PO (21:06)
[2022-05-08] MEDS: fenofibrate 145 mg Tablet PO (21:07)
[2022-05-08] MEDS: insulin glargine 100 units/1 mL 30 UNIT SUBCUT (21:10)
[2022-05-09] VITALS (13 sets, daily range): BP systolic 103–154; BP diastolic 51–89; PULSE 63–81; RESP 16–25; TEMP 36.4–36.7; O2SAT 90–95
[2022-05-09] MEDS: venlafaxine ER (24HR) 150 mg Capsule PO (05:30)
[2022-05-09 06:09] LABS: Alanine Aminotransferase 53 U/L (0-41); Albumin Level 3.4 g/dL (3.5-5.2); Alkaline Phosphatase 73 U/L (40-130); Aspartate Amino Transferase 33 U/L (0-40); Blood Urea Nitrogen 53 mg/dL (8-23); Calcium 8.7 mg/dL (8.5-10.5); Carbon Dioxide 33 mmol/L (22-29); Chloride 99 mmol/L (98-107); Globulin 2.6 g/dL (1.3-4.6); Glomerular Filtration Rate 36.2 mL/min (90-130); Glucose 72 mg/dL (65-115); Osmolality Calculated 303 mOsm/kg (285-295); Sodium 140 mmol/L (136-145); Total Bilirubin 0.3 mg/dL (0.15-1.2)
[2022-05-09 06:21] LABS: Anion Gap 11.8 (5-19); Potassium 3.8 mmol/L (3.5-5.1)
[2022-05-09 06:33] LABS: Glucose Point of Care 93 mg/dL (70-110)
[2022-05-09] MEDS: budesonide 0.5 mg/2 mL Neb INHALATION (07:23)
[2022-05-09] MEDS: metoprolol tartrate 25 mg Tablet PO (08:23)
[2022-05-09] MEDS: rivaroxaban 10 mg Tablet 20 MG PO (08:23)
[2022-05-09] MEDS: cyanocobalamin 1,000 mcg Tablet 500 MCG PO (08:23)
[2022-05-09] MEDS: pantoprazole DR 40 mg Tablet PO (08:23)
[2022-05-09] MEDS: ferrous sulfate EC 325 mg Tablet PO (08:23)
[2022-05-09] MEDS: amiodarone 200 mg Tablet PO (08:23)
[2022-05-09] MEDS: metOLazone 5 MG Tablet 2.5 MG PO (08:24)
[2022-05-09] MEDS: predniSONE 20 mg Tablet 40 MG PO (08:24)
[2022-05-09] MEDS: amlodipine 10 mg Tablet PO (08:24)
[2022-05-09] MEDS: atorvastatin 40 mg Tablet PO (08:24)
[2022-05-09] MEDS: bumetanide 1 mg Tablet 2 MG PO (08:24)
[2022-05-09] MEDS: sennosides-docusate Tablet 1 TAB PO (08:24)
[2022-05-09] MEDS: NON-FORMULARY MEDICATION (Colesevelam [Welchol] 625 mg tablet) 1875 EACH PO (08:25)
[2022-05-09] MEDS: BuSPIRONE 10 mg Tablet 15 MG PO (08:25)
[2022-05-09] MEDS: levothyroxine 175 mcg Tablet PO (08:25)
[2022-05-09] MEDS: montelukast sodium 10 mg Tablet PO (08:25)
[2022-05-09] MEDS: hyDRALAzine 50 mg Tablet 100 MG PO (08:25)
[2022-05-09 11:34] LABS: Glucose Point of Care 222 mg/dL (70-110)
[2022-05-09] MEDS: insulin lispro 100 unit/1 mL SUBCUT (11:50)
--- NOTE | 2022-05-09 12:34 | PM.DCS ---
Discharge Providers Date of Admission: 04/23/22 21:00 Date of Discharge: May 09, 2022 Attending Provider at Admission: Dave Doty MD Attending Provider at Discharge: Justin Villegas MD Consults: Cardiology: Dr. Tee Primary Care Provider: YONATHAN Samuel Diagnoses at Discharge Discharge Diagnosis (1) Acute on chronic respiratory failure: Status: Acute (2) Obesity hypoventilation syndrome: Status: Acute (3) Acute kidney injury: Status: Acute (4) Diabetes mellitus with hyperglycemia, with long-term current use of insulin: Status: Chronic (5) COPD exacerbation: Status: Acute (6) CHF exacerbation: Status: Acute (7) Afib: Status: Acute (8) Hyperkalemia: Status: Acute (9) Community acquired bilateral lower lobe pneumonia: Status: Acute Reason for Visit Reason for Visit: SOB Brief History: History as per HPI: Admitted 04/23/2022: Julius Dunlap is a 61 year old male with a past medical history of smoking, small airway disease, severe obesity hypoventilation syndrome,chronic respiratory failure, on home trilogy machine, diastolic CHF, chronically on 5 to 6 L, insulin-dependent type 2 diabetes mellitus, morbid obesity, GERD, hyperlipidemia and hypothyroidism, EDGAR, CKD, who recently was hospitalization for diastolic CHF exacerbation received diuresis.? On discharge his diuresis was held Entresto was held, he was also advised to hold Xarelto for 4 days and, since then he is resumed it.? He also had iron deficiency anemia, Hemoccult positive stool during his hospitalization.? He presents [facility] as getting out of the hospital, he continued to have shortness of breath, at rest with exertion, lower extremity edema, fatigue, malaise.? He tells me that he had increase his oxygen from 5 L to 8 L.? At recently had increase it to 15 L.? He is become increasingly short of breath, no nausea, no vomiting, no chest pain, no palpitations.? No fevers, no chills, no cough.? In the emergency room he was found to have respiratory distress, was placed on BiPAP currently currently on 20/10 100% FiO2 resting comfortably, no nasal flaring no intercostal retractions, no tachypnea currently resting comfortably, at bedside.? He tells me he is taking the Xarelto.? He has not taken his Lasix or his Entresto.? Denies any bloody or black stools. Hospital Course Hospital Course Patient was sent to the hospital further evaluation and management of acute on chronic hypoxic hypercapnic respiratory failure secondary to combination of diastolic congestive heart failure exacerbation and obesity hypoventilation syndrome. Given recurrent admissions cardiology was consulted. There was a concern for pneumonia as well on admission through imaging and he was started on broad-spectrum antibiotics. On admission he was also found to be in acute kidney injury most likely secondary to cardiorenal syndrome. He was started on aggressive diuresis after which his kidney functions improved and has stabilized at around 1.9. Patient overall by time of discharge over the last 16 days is around 61 L negative. At start patient was BiPAP dependent and was on BiPAP for most part of the day but currently has been saturating well on 5 to 6 L of nasal cannula oxygen supplementation. He is able to ambulate in the halls with a walker. Patient has finished course of antibiotics for possible pneumonia. He has remained hemodynamically stable and afebrile on his baseline oxygen supplementation for last few days. Multiple attempts for safe discharge planning was done in detail given high chance of readmission because of severe obesity hypoventilation syndrome. Unfortunately patient has not been able to place to SNF or [facility]. As patient has improved significantly and is back to his baseline for last 4 to 5 days safe discharge plan was discussed in detail with the patient and patient's family again and they were agreeable to take him home with home health. Physical Exam Narrative: General exam is a white male, no distress on 5 L oxygen supplementation Neck is supple Cardiovascular regular rate and rhythm without murmur Lungs diminished breath sounds bilaterally. No audible wheezing Abdomen is soft, obese. Bowel sounds evident. Still has some edema below his umbilicus exam demonstrates Jiménez Extremities show evidence of venous stasis. No significant edema Skin no rash Urinary Catheter Management: Jiménez: Cath Placed During This Visit: no Reason for Continuing Indwelling Catheter: Other Discharge Data Studies Completed and Pending Completed Studies During Hospitalization Category Date Time Status CT chest wo con [id number] Routine Cat Scan 04/24/22 07:52 Completed XR chest 1V portable [id number] Stat Exams 04/23/22 18:54 Completed US renal BI* [id number] Routine Ultrasound 04/27/22 09:22 Completed Pending at discharge Category Date Time Status Comprehensive Metabolic Panel AM LABS Lab 05/10/22 04:00 Ordered Comprehensive Metabolic Panel AM LABS Lab 05/11/22 04:00 Ordered Sputum Culture and Gram Stain Stat Lab 04/23/22 21:59 Uncollected Radiology Impressions Chest X-Ray 04/23/22 18:54 IMPRESSION: Findings suspicious for congestive heart failure Chest CT 04/24/22 07:52 IMPRESSION: 1. Shallow inspiration. Volume loss in the lower lobes. 2. Small bilateral pleural effusions with compressive atelectasis in the bilateral lower lobes with air bronchograms may be due to CHF 3. Cardiomegaly with moderate pericardial effusion. 4. Hepatomegaly. 5. Small amount of ascites about the liver and spleen. Renal Ultrasound 04/27/22 09:22 IMPRESSION: Technically difficult study due to body habitus. 1. No hydronephrosis in either kidney. 2. Bladder not visualized due to patient's inability to lie supine Laboratory Results WBC 18.9 10^3/uL (4.0-10.0) H 05/08/22 03:07 RBC 3.41 10^6/uL (4.1-5.3) L 05/08/22 03:07 Hgb 9.6 g/dL (11.7-16.6) L 05/08/22 03:07 Hct 31.3 % (42.0-52.0) L 05/08/22 03:07 MCV 91.8 fl (80-94) 05/08/22 03:07 MCH 28.2 pg (28.0-34.0) 05/08/22 03:07 MCHC 30.7 g/dL (30.0-36.0) 05/08/22 03:07 RDW 15.0 % (12.1-15.1) 05/08/22 03:07 Plt Count 281 10^3/cmm (130-400) 05/08/22 03:07 MPV 10.4 fL (7.4-10.4) 05/08/22 03:07 Neut % (Auto) 78.3 % 05/08/22 03:07 Lymph % (Auto) 13.4 % 05/08/22 03:07 [place] % (Auto) 6.7 % 05/08/22 03:07 Eos % (Auto) 0.4 % 05/08/22 03:07 Baso % (Auto) 0.1 % 05/08/22 03:07 Neut # (Auto) 14.80 10^3/uL (1.8-7.7) H 05/08/22 03:07 Lymph # (Auto) 2.5 10^3/uL (0.8-4.8) 05/08/22 03:07 [place] # (Auto) 1.3 10^3/uL (0.2-0.9) H 05/08/22 03:07 Eos # (Auto) 0.1 10^3/uL (0.0-0.8) 05/08/22 03:07 Baso # (Auto) 0.0 10^3/uL (0.0-0.1) 05/08/22 03:07 Nucleated RBC % (auto) 0 % 05/08/22 03:07 Total Counted 100 (0-100) 04/25/22 03:00 Atypical Lymphs % 0.0 % (0-5) 04/25/22 03:00 Absolute Neutrophils 10.5 10^3/cmm (1.4-6.5) H 04/25/22 03:00 Segmented Neutrophils 68 % 04/25/22 03:00 Abs Segm Neuts (Man) 10.2 10/cmm (1.6-7.1) H 04/25/22 03:00 Band Neutrophils 2.0 % 04/25/22 03:00 Abs Band Neuts (Man) 0.3 10^3/cmm (0.0-1.2) 04/25/22 03:00 Absolute Lymphocytes 2.4 10^3/cmm (1.2-3.4) 04/25/22 03:00 Lymphocytes (Manual) 16 % 04/25/22 03:00 Monocytes (Manual) 12.0 % 04/25/22 03:00 Absolute Monocytes 1.8 10^3/cmm (0.1-0.6) H 04/25/22 03:00 Eosinophils (Manual) 2 % 04/25/22 03:00 Absolute Eosinophils 0.3 10^3/cmm (0.0-0.7) 04/25/22 03:00 Basophils (Manual) 0.0 % 04/25/22 03:00 Absolute Basophils 0.0 10^3/cmm (0.0-0.2) 04/25/22 03:00 Nucleated RBCs # 0.0 /100WBC 05/08/22 03:07 Platelet Estimate Increased (Normal) 04/25/22 03:00 Anisocytosis 1+ H 04/25/22 03:00 Tear Drop Cells 1+ 04/25/22 03:00 PT 19.30 SECONDS (12.1-14.9) H 04/24/22 05:00 INR 1.59 (0.8-1.2) H 04/24/22 05:00 Specimen Type Arterial 04/23/22 18:53 Sample Site Radial, right 04/23/22 18:53 ABG pH 7.33 (7.35-7.45) L 04/23/22 18:53 ABG pCO2 45.2 mmHg (35-45) H 04/23/22 18:53 ABG pO2 109.0 mmHg (80.0-100.0) H 04/23/22 18:53 ABG HCO3 23.8 mmol/L (22-26) 04/23/22 18:53 ABG Base Excess -2.2 mmol/L (-2.0-2.0) L 04/23/22 18:53 Avila Test Pos 04/23/22 18:53 Hematocrit 28.0 % (42-52) L 04/23/22 18:53 Hgb O2 Saturation 96.9 % (95-100) 04/23/22 18:53 Carboxyhemoglobin 1.2 %THgb (0.4-20.1) 04/23/22 18:53 Methemoglobin 0.5 % (0.4-1.5) 04/23/22 18:53 Total Hemoglobin 9.1 g/dL (14-18) L 04/23/22 18:53 O2 Delivery Device Bipap 04/23/22 18:53 FiO2 100.0 % 04/23/22 18:53 Metal Furniture Repairer ID [email or web address] 04/23/22 18:53 Sodium 140 mmol/L (136-145) 05/09/22 04:35 Potassium 3.8 mmol/L (3.5-5.1) 05/09/22 04:35 Chloride 99 mmol/L (98-107) 05/09/22 04:35 Carbon Dioxide 33 mmol/L (22-29) H 05/09/22 04:35 Anion Gap 11.8 (5-19) 05/09/22 04:35 BUN 53 mg/dL (8-23) H 05/09/22 04:35 Creatinine 1.9 mg/dL (0.7-1.2) H 05/09/22 04:35 GFR Calculation 36.2 mL/min (90-130) L 05/09/22 04:35 Glucose 72 mg/dL (65-115) 05/09/22 04:35 POC Glucose 222 mg/dL (70-110) H 05/09/22 11:20 Calculated Osmolality 303 mOsm/kg (285-295) H 05/09/22 04:35 Lactic Acid 1.5 mmol/L (0.5-2.2) 04/23/22 18:50 Calcium 8.7 mg/dL (8.5-10.5) 05/09/22 04:35 Phosphorus 5.2 mg/dL (2.5-4.5) H 04/24/22 05:00 Magnesium 2.5 mg/dL (1.7-2.3) H 04/29/22 04:57 Total Bilirubin 0.3 mg/dL (0.15-1.2) 05/09/22 04:35 AST 33 U/L (0-40) 05/09/22 04:35 ALT 53 U/L (0-41) H 05/09/22 04:35 Alkaline Phosphatase 73 U/L (40-130) 05/09/22 04:35 Troponin T Baseline 43 ng/L (0-15) H 04/23/22 18:50 Troponin T 120 Minute 47.14 ng/L (0-15) H 04/23/22 20:45 Delta Troponin T 4.14 ABS# (0-10) 04/23/22 20:45 Troponin T Hi Sens 6Hr 41.79 ng/L (0-15) H 04/24/22 05:00 Troponin T Hi Sens 6Hr Delta -1.21 ng/L (0-12) L 04/24/22 05:00 C-Reactive Protein 56.1 mg/L (0.0-4.9) H 04/23/22 20:45 NT-Pro-B Natriuret Pep 867 pg/mL (0-125) H 04/24/22 05:00 Total Protein 6.0 g/dL (6.6-8.7) L 05/09/22 04:35 Albumin 3.4 g/dL (3.5-5.2) L 05/09/22 04:35 Globulin 2.6 g/dL (1.3-4.6) 05/09/22 04:35 Vitamin B12 290 pg/mL (232-1245) 04/30/22 10:33 Folate 6.9 ng/mL (4.5-32.2) 04/30/22 10:33 Procalcitonin 0.35 ng/mL (0-0.5) 04/23/22 20:45 TSH 2.80 uIU/mL (0.27-4.20) 04/24/22 05:00 Influenza Type A Ag negative (Negative) 04/23/22 19:10 Influenza Type B Ag negative (Negative) 04/23/22 19:10 SARS-CoV-2 Ag (Rapid) negative (Negative) 04/23/22 19:10 Blood Type A Positive 04/30/22 10:33 Rho(D) Type Positive 04/30/22 10:33 Antibody Screen Negative 04/30/22 10:33 Crossmatch See Detail 04/30/22 10:33 Vitals Last Vital Signs Temp 98.0 F 05/09/22 07:18 Pulse 70 05/09/22 11:38 Resp 18 05/09/22 11:38 BP 115/54 05/09/22 07:18 Pulse Ox 95 05/09/22 11:38 O2 Del Method 05/09/22 11:38 O2 Flow Rate 5 05/09/22 11:38 FiO2 50 05/09/22 08:00 Discharge Plan Discharge Patient Disposition: Home Condition: Stable Prescriptions: New metoprolol tartrate 25 mg Tablet 25 mg PO BID@0900,2100 30 Days Qty: 60 0RF pantoprazole 40 mg Tablet,Delayed Release (Dr/Ec) 40 mg PO BID 30 Days Qty: 60 0RF prednisone 20 mg Tablet 40 mg PO DAILY 5 Days Qty: 10 0RF bumetanide 1 mg Tablet 2 mg PO DAILY Qty: 30 0RF metolazone 5 mg Tablet 2.5 mg PO DAILY 30 Days Qty: 15 0RF trazodone 100 mg Tablet 100 mg PO BEDTIME Qty: 30 0RF cyanocobalamin (vitamin B-12) [Vitamin B-12] 1,000 mcg Tablet 500 mcg PO DAILY Qty: 30 0RF Continued ipratropium-albuterol 0.5 mg-3 mg(2.5 mg base)/3 mL solution for nebulization 3 ml INHALATION QID PRN (Reason: Shortness Of Breath) (DME) Phizzleyle Jeremy 2 Sensor Kit See Rx Instructions .Route Qty: 1 0RF Rx Instructions: As directed (DME) FreeStyle Jeremy 2 [place] Misc See Rx Instructions .Route Qty: 1 0RF Rx Instructions: As directed venlafaxine [Effexor XR] 150 mg capsule,extended release 24hr 150 mg PO QAM Qty: 30 2RF Anoro Ellipta 62.5-25 mcg/actuation blister with device 1 inh inhalation Q24H Qty: 60 2RF rosuvastatin 20 mg tablet 20 mg PO DAILY Qty: 30 2RF montelukast [Singulair] 10 mg tablet 10 mg PO DAILY Qty: 30 2RF Victoza 3-Leonides 0.6 mg/0.1 mL (18 mg/3 mL) pen injector 1.8 mg SUBCUT Q24H Qty: 9 2RF Tresiba FlexTouch U-100 100 unit/mL (3 mL) insulin pen 60 unit SUBCUT BID Qty: 50 2RF cetirizine 10 mg tablet 10 mg PO DAILY Qty: 30 2RF buspirone 15 mg tablet 15 mg PO BID Qty: 60 2RF amiodarone 200 mg tablet 200 mg PO DAILY Qty: 90 1RF Rx Instructions: TAKE ONE TABLET BY MOUTH DAILY Xarelto 20 mg tablet 20 mg PO DAILY Qty: 90 1RF Rx Instructions: must administer with a meal/food amlodipine 10 mg tablet 10 mg PO DAILY Qty: 90 3RF Rx Instructions: Must be seen for further refills colesevelam [WelChol] 625 mg tablet 1,875 mg PO BID Qty: 540 3RF hydralazine 100 mg tablet 100 mg PO TID Qty: 270 3RF potassium chloride 20 mEq tablet extended release 20 meq PO BID Qty: 180 3RF Hold Instructions: Resume on 04/15/22. (DME) pen needle, diabetic [TechLITE Pen Needle] 31 gauge x 5/16 needle See Rx Instructions .ROUTE .MEDSUPPLY Qty: 100 5RF Rx Instructions: Three times a day levothyroxine 175 mcg tablet 175 mcg PO DAILY Qty: 30 2RF Rx Instructions: dose increase metformin 500 mg tablet extended release 24 hr 500 mg PO BID fenofibrate nanocrystallized 145 mg tablet 145 mg PO BEDTIME ascorbic acid (vitamin C) 500 mg tablet 500 mg PO DAILY Qty: 30 0RF Discontinued Entresto 49-51 mg tablet 1 tab PO BID Qty: 60 2RF Hold Instructions: Resume on 04/15/22. furosemide [Lasix] 40 mg tablet 40 mg PO BID Qty: 60 2RF Hold Instructions: Resume on 04/15/22. Discharge Orders: Discharge Order (Routine); Ordered 05/09/22 Ordered By: Justin Villegas Other Ambulatory Orders: DME: Jayme (Order) Location: None Selected Ordered By: Justin Villegas Referrals: Jeremiah Griffin FNP-C [Primary Care Provider] - 1 week Datar,Ok Gilliland MD [Physician] - 4-7 days Discharge Diet: Cardiac Discharge Activity: Resume usual activity and Increase activity as tolerated Patient Instructions: Opioid Safety Activity Restrictions/Additional Instructions: Multiple medication changes have been done. Do not take Entresto Lasix anymore. Instead take Bumex 2 mg oral daily along with metolazone 2.5 mg oral daily. Continue using your inhalers as before. Metoprolol 25 mg twice daily has been added to your medication list. Please restrict your oral fluid intake to around 1 L/day. Please check your body weight daily at home. If your body weight increases by 5 pounds CURRENT weight take an extra dose of Bumex still your weight comes back down to your dry weight. Please recheck BMP with your primary care provider within the next week. Please follow-up with pulmonology at earliest. Discharge Attestations Time Spent in Discharge Care*: greater than 30 min Specific Discharge Activities: educating patient, educating and/or supporting family/caregiver, discussing with pcp/other providers, discussing with casey saw operator/social workers/dc planners, documenting/other paperwork and evaluating patient/reviewing data Status at Discharge: Cognitive status at discharge: cognitively intact, Behavioral status at discharge: cooperative, Functional status at discharge: independent ambulation, Overall status at discharge: patient is back to baseline Quality Metrics Clinical Quality Measures [ No reported AMI, CVA or VTE this stay] Coding Level of Care Code 94231 Total time (in minutes) for Discharge: 50 Diagnoses Acute on chronic respiratory failure J96.20 Obesity hypoventilation syndrome E66.2 Acute kidney injury N17.9 Diabetes mellitus with hyperglycemia, with long-term current use of insulin E11.65; Z79.4 COPD exacerbation J44.1 CHF exacerbation I50.9 Afib I48.91 Hyperkalemia E87.5 Community acquired bilateral lower lobe pneumonia J18.9
--- NOTE | 2022-05-09 14:52 | PC.NURSE ---
Pt discharged home with . Belongings sent with pt. IV removed with cathlon intact. Voiced understanding of d/c instructions.
== END 2022-05-09 14:38 | disposition home health service (06) | DRG 291 ==
LOC: ER 21:52 → ER IP 23:19 → ICU 04-24 23:17 → CSU 04-26 22:45
PROVIDERS: Internal Medicine; Student in an Organized Health Care Education/Training Program; Admitting Provider Family Medicine; Emergency Provider Emergency Medicine; PCP Nurse Practitioner; Visit Provider Student in an Organized Health Care Education/Training Program
DX: I13.0 Hypertensive heart and chronic kidney disease with heart failure and stage 1 through stage 4 chronic kidney disease, or unspecified chronic kidney disease (principal); I50.33 Acute on chronic diastolic (congestive) heart failure; J96.22 Acute and chronic respiratory failure with hypercapnia; J96.21 Acute and chronic respiratory failure with hypoxia; J18.9 Pneumonia, unspecified organism; E66.2 Morbid (severe) obesity with alveolar hypoventilation; Z68.43 Body mass index [BMI] 50.0-59.9, adult; N17.9 Acute kidney failure, unspecified; J44.1 Chronic obstructive pulmonary disease with (acute) exacerbation; J44.0 Chronic obstructive pulmonary disease with (acute) lower respiratory infection; I48.20 Chronic atrial fibrillation, unspecified; N18.9 Chronic kidney disease, unspecified; E11.22 Type 2 diabetes mellitus with diabetic chronic kidney disease; E11.65 Type 2 diabetes mellitus with hyperglycemia; E87.5 Hyperkalemia; F17.210 Nicotine dependence, cigarettes, uncomplicated; Z99.89 Dependence on other enabling machines and devices; K21.9 Gastro-esophageal reflux disease without esophagitis; E78.5 Hyperlipidemia, unspecified; E03.9 Hypothyroidism, unspecified; D50.9 Iron deficiency anemia, unspecified; Z99.81 Dependence on supplemental oxygen; D63.1 Anemia in chronic kidney disease; Z86.14 Personal history of Methicillin resistant Staphylococcus aureus infection; F41.9 Anxiety disorder, unspecified; T50.1X6A Underdosing of loop [high-ceiling] diuretics, initial encounter; Z79.84 Long term (current) use of oral hypoglycemic drugs; Z79.01 Long term (current) use of anticoagulants; Z79.4 Long term (current) use of insulin
CPT/HCPCS: 36415; 36416; 36430; 36600; 71045; 71250; 76770; 80048; 80053; 82274; 82607; 82746; 82805; 82962; 83605; 83735; 83880; 84100; 84145; 84443; 84484; 85007; 85025; 85027; 85610; 86140; 86403; 86850; 86900; 86920; 87040; 87426; 87641; 87804; 93005; 94640; 94660; 94664; 96372; 96374; 96376; 97110; 97116; 97161; 97530; 99291; C9113; J0456; J0696; J1756; J1815; J1940; J2543; J2920; J2930; J3420; J3490; J7050; J7512; J7611; J7613; J7626; J7644; P9016

== ENCOUNTER → 2022-05-12 10:53 | Outpatient (BNVA) | payer MEDICARE, SELFPAY | PROVIDERS: PCP Nurse Practitioner; Visit Provider Nurse Practitioner | DX: E11.65 Type 2 diabetes mellitus with hyperglycemia (principal); Z79.4 Long term (current) use of insulin; F41.9 Anxiety disorder, unspecified; J30.1 Allergic rhinitis due to pollen; E03.9 Hypothyroidism, unspecified; E78.2 Mixed hyperlipidemia; J96.12 Chronic respiratory failure with hypercapnia; J96.11 Chronic respiratory failure with hypoxia | CPT/HCPCS: 80053; 81000; 83036 ==

== ENCOUNTER → 2022-05-17 11:56 | Outpatient (BNVA) | payer MEDICARE, SELFPAY | PROVIDERS: PCP Nurse Practitioner; Visit Provider Nurse Practitioner | DX: E11.65 Type 2 diabetes mellitus with hyperglycemia (principal); N17.9 Acute kidney failure, unspecified; N18.9 Chronic kidney disease, unspecified; Z79.4 Long term (current) use of insulin | CPT/HCPCS: 80048 ==

== ENCOUNTER → 2022-05-19 11:13 | Outpatient (BNVA) | payer MEDICARE, SELFPAY | PROVIDERS: PCP Nurse Practitioner; Visit Provider Nurse Practitioner Family | DX: I48.91 Unspecified atrial fibrillation (principal); I13.0 Hypertensive heart and chronic kidney disease with heart failure and stage 1 through stage 4 chronic kidney disease, or unspecified chronic kidney disease; E11.22 Type 2 diabetes mellitus with diabetic chronic kidney disease; E11.65 Type 2 diabetes mellitus with hyperglycemia; N18.9 Chronic kidney disease, unspecified; I50.32 Chronic diastolic (congestive) heart failure; Z87.891 Personal history of nicotine dependence; Z79.4 Long term (current) use of insulin | CPT/HCPCS: 99214 ==

== ENCOUNTER → 2022-05-26 09:39 | Outpatient (BNVA) | payer MEDICARE, SELFPAY | PROVIDERS: PCP Nurse Practitioner; Visit Provider Nurse Practitioner | DX: E11.65 Type 2 diabetes mellitus with hyperglycemia (principal); Z79.4 Long term (current) use of insulin; J44.1 Chronic obstructive pulmonary disease with (acute) exacerbation; I10 Essential (primary) hypertension | CPT/HCPCS: 80053; 81000; 85025; 87400; 87426 ==

== ENCOUNTER 2022-05-27 20:09 | Inpatient (IN) | payer MEDICARE, SELFPAY ==
[2022-05-27] VITALS (8 sets, daily range): BP systolic 117–142; BP diastolic 65–97; PULSE 89–109; RESP 19–30; TEMP 36.9–37.7; O2SAT 78–98; BMI 51.2
--- NOTE | 2022-05-27 20:27 | W.ED.SOB ---
HPI - SOB/Dyspnea General: Chief Complaint: Shortness of Breath/Dyspnea Stated Complaint: sob Time Seen by Provider: 05/27/22 20:15 History of Present Illness: HPI Narrative: Mr Dunlap is a 61-year-old gentleman with complex past medical history including tobaccoism, small airway disease, obesity hypoventilation syndrome, chronic respiratory failure on home trilogy, diastolic heart failure, insulin-dependent diabetes, thyroid disorder, CKD presenting to the emergency department for shortness of breath. He reports initial improvement from previous hospitalization and was discharged on 05/09 however has subsequently worsened. Respiratory status has significantly worsened over the past few days including rattling in his chest, cough, exertional dyspnea, orthopnea, fevers, generalized malaise. Intensity symptoms is severe and unrelieved by home oxygen. He reports otherwise compliance with his medication regimen. No other specific changes in health, exacerbating, or alleviating factors identified. Onset (ago): day(s) Timing: progressively worsening Exacerbating factors: lying flat and exertion Associated symptoms: Reports chest congestion, cough, palpitations and other Review of Systems General: Reports: 10 or more systems reviewed and unremarkable except in HPI and below Card: Reports: palpitations Resp: Reports: chest congestion [facility] PFSH: Medical History Acquired lymphedema Acute diastolic heart failure Acute exacerbation of chronic obstructive airways disease Acute respiratory failure with hypercapnia Afib Allergic rhinitis due to pollen Anemia Anxiety Chronic atrial fibrillation with rapid ventricular response Chronic diastolic (congestive) heart failure Chronic kidney disease Chronic respiratory failure Congestive heart failure Diabetes mellitus with hyperglycemia, with long-term current use of insulin Elevated INR Essential (primary) hypertension GERD (gastroesophageal reflux disease) Hyperlipemia Hypothyroidism Hypoxia, sleep related Leukocytosis Morbid obesity with BMI of 50.0-59.9, adult MRSA infection NSTEMI (non-ST elevated myocardial infarction) Obesity hypoventilation syndrome EDGAR (obstructive sleep apnea) Pneumonia, unspecified organism Surgical History H/O esophagogastroduodenoscopy (02/18/21) History of bilateral cataract extraction 2019 and 2020 History of colonoscopy (02/18/21) History of gangrene Left buttocks requiring surgery May 2014 Family History Father Cancer Mother Heart disease CAD (coronary artery disease) Diabetes Heart attack Stroke Brother Heart attack Clotting disorder Stroke Sister Stroke Denies family history of Dementia Chronic kidney disease (CKD) Suicide Anesthesia complication Bleeding disorder Lung disease Social History Smoking and tobacco status: former smoker Quit status (tobacco): has quit using tobacco Year quit tobacco: 6 weeks ago Second hand smoke exposure: Yes Smoking risk assessment/counseling performed?: Yes Alcohol intake: former Year of sobriety/quit date alcohol: 1991 Desire information about alcohol rehabilitation?: No Counseling given: No Desire information about substance/drug rehabilitation?: No Counseling given: No Adopted: No Caregiver/support person: No Lives independently: Yes Household members: spouse Housing: House Marital status: service: No Current occupational status: disabled Pets and animals: Yes Current gender identity: Male Physical Exam Const: COMMON NORMALS: alert GENERAL APPEARANCE: cooperative and well developed HENMT: COMMON NORMALS: normocephalic and atraumatic HEAD & SCALP: normocephalic and atraumatic Eye: COMMON NORMALS: conjunctivae normal CONJUNCTIVA: Yes conjunctivae normal SCLERA: sclerae normal Neck/C-Spine: COMMON NORMALS: supple GENERAL: Yes trachea midline Resp: EFFORT & INSPECTION: Yes tachypneic AUSCULTATION: diminished lung sounds Cardio: RATE: tachycardic RHYTHM: abnormal rhythm irregularly irregular GI: COMMON NORMALS: Soft to palpation PALPATION: Yes Soft to palpation and No Tenderness to palpation present (GI) Extremity: GENERAL: Yes normal exam except as noted and Yes edema Neuro: COMMON NORMALS: moves all extremities SENSORIUM/ORIENTATION: Yes alert and No Orientation impaired Psych: COMMON NORMALS: mental status grossly normal and Normal thought process present THOUGHT PROCESS: Normal thought process present Course Vital Signs: Vital signs: Vital Signs Temperature 98.0 F 05/30/22 12:00 Pulse Rate 84 05/30/22 14:34 Respiratory Rate 18 05/30/22 14:34 Blood Pressure 160/74 05/30/22 12:00 Pulse Oximetry 95 05/30/22 14:34 Oxygen Delivery Me thod 05/30/22 12:05 Oxygen Flow Rate 6 05/30/22 14:06 Fraction of Inspir ed Oxygen 40 05/29/22 20:00 MDM - SOB/Dyspnea Medical Decision Making 61-year-old gentleman with complex history presenting with shortness of breath and hypoxemia. Patient appears and respiratory distress and BiPAP ordered. EKG notable for atrial fibrillation with RVR, no STEMI. Labs with leukocytosis, normocytic anemia. Metabolic panel with hyponatremia and increased creatinine. Negative range 2-hour delta troponin. BNP is elevated. Viral panel pending. ABG with hypercapnia and hypoxemia, compensated pH. Chest x-ray with multifocal pneumonia. No pneumothorax. Patient treated with RT treatment, steroids, antibiotics. BiPAP appears to improve symptoms. Most likely cause of symptoms is pneumonia with acute on chronic respiratory failure, PETE. The results of ED evaluation were discussed with the patient including plan for admission due to requirement for level of care not available if discharged to prevent significant worsening/deterioration. Patient agreeable with plan. Discussed with hospitalist service who was agreeable to admit patient. Medical Records I reviewed the patient's medical records. Lab Data I reviewed the patient's lab results. 05/30/22 03:28 05/30/22 03:28 Labs/Radiology: Radiology Impressions Chest X-Ray 05/27/22 20:28 IMPRESSION: Imaging findings of multifocal pneumonia, involving mainly the right lung. Venous Duplex 05/28/22 07:59 IMPRESSION: No evidence of deep vein thrombosis. Laboratory Results WBC 18.3 10^3/uL (4.0-10.0) H 05/27/22 20:46 RBC 3.24 10^6/uL (4.1-5.3) L 05/27/22 20:46 Hgb 9.0 g/dL (11.7-16.6) L 05/27/22 20:46 Hct 30.3 % (42.0-52.0) L 05/27/22 20:46 MCV 93.5 fl (80-94) 05/27/22 20:46 MCH 27.8 pg (28.0-34.0) L 05/27/22 20:46 MCHC 29.7 g/dL (30.0-36.0) L 05/27/22 20:46 RDW 15.6 % (12.1-15.1) H 05/27/22 20:46 Plt Count 348 10^3/cmm (130-400) 05/27/22 20:46 MPV 10.0 fL (7.4-10.4) 05/27/22 20:46 Neut % (Auto) 78.5 % 05/27/22 20:46 Lymph % (Auto) 12.3 % 05/27/22 20:46 [place] % (Auto) 7.1 % 05/27/22 20:46 Eos % (Auto) 0.1 % 05/27/22 20:46 Baso % (Auto) 0.2 % 05/27/22 20:46 Neut # (Auto) 14.36 10^3/uL (1.8-7.7) H 05/27/22 20:46 Lymph # (Auto) 2.3 10^3/uL (0.8-4.8) 05/27/22 20:46 [place] # (Auto) 1.3 10^3/uL (0.2-0.9) H 05/27/22 20:46 Eos # (Auto) 0.0 10^3/uL (0.0-0.8) 05/27/22 20:46 Baso # (Auto) 0.0 10^3/uL (0.0-0.1) 05/27/22 20:46 Nucleated RBC % (auto) 0.1 % 05/27/22:46 Nucleated RBCs # 0.0 /100WBC 05/27/22 20:46 Specimen Type Arterial 05/27/22 20:55 Sample Site Radial, left 05/27/22 20:55 ABG pH 7.40 (7.35-7.45) 05/27/22 20:55 ABG pCO2 50.1 mmHg (35-45) H 05/27/22 20:55 ABG pO2 79.6 mmHg (80.0-100.0) L 05/27/22 20:55 ABG HCO3 30.7 mmol/L (22-26) H 05/27/22 20:55 ABG Base Excess 5.0 mmol/L (-2.0-2.0) H 05/27/22 20:55 Avila Test Pos 05/27/22 20:55 Hematocrit 28.1 % (42-52) L 05/27/22 20:55 Hgb O2 Saturation 94.1 % (95-100) L 05/27/22 20:55 Carboxyhemoglobin 1.4 %THgb (0.4-20.1) 05/27/22 20:55 Methemoglobin 0.6 % (0.4-1.5) 05/27/22 20:55 Total Hemoglobin 9.2 g/dL (14-18) L 05/27/22 20:55 O2 Delivery Device Bipap 05/27/22 20:55 FiO2 60.0 % 05/27/22 20:55 PEEP 10.0 cmH20 05/27/22 20:55 Die Forger ID Tunca2 05/27/22 20:55 Sodium 134 mmol/L (136-145) L 05/27/22 20:46 Potassium 4.2 mmol/L (3.5-5.1) 05/27/22 20:46 Chloride 95 mmol/L (98-107) L 05/27/22 20:46 Carbon Dioxide 29 mmol/L (22-29) 05/27/22 20:46 Anion Gap 14.2 (5-19) 05/27/22 20:46 BUN 38 mg/dL (8-23) H 05/27/22 20:46 Creatinine 2.6 mg/dL (0.7-1.2) H 05/27/22 20:46 GFR Calculation 25.2 mL/min (90-130) L 05/27/22 20:46 Glucose 173 mg/dL (65-115) H 05/27/22 20:46 Calculated Osmolality 291 mOsm/kg (285-295) 05/27/22 20:46 Lactic Acid 1.6 mmol/L (0.5-2.2) 05/27/22 20:46 Calcium 9.0 mg/dL (8.5-10.5) 05/27/22 20:46 Total Bilirubin 0.5 mg/dL (0.15-1.2) 05/27/22 20:46 AST 20 U/L (0-40) 05/27/22 20:46 ALT 11 U/L (0-41) 05/27/22 20:46 Alkaline Phosphatase 63 U/L (40-130) 05/27/22 20:46 Troponin T Baseline 68 ng/L (0-15) H 05/27/22 20:46 Troponin T 120 Minute 68.68 ng/L (0-15) H 05/27/22 22:23 Delta Troponin T 0.68 ABS# (0-10) 05/27/22 22:23 NT-Pro-B Natriuret Pep 4121 pg/mL (0-125) H 05/27/22 20:46 Total Protein 7.4 g/dL (6.6-8.7) 05/27/22 20:46 Albumin 3.3 g/dL (3.5-5.2) L 05/27/22 20:46 Globulin 4.1 g/dL (1.3-4.6) 05/27/22 20:46 Coronavirus 229E (PCR) Not detected (NOT DETECT) 05/27/22 20:46 Human Metapneumovir PCR Detected (NOT DETECT) A 05/27/22 23:07 Entero/Rhino (PCR) Not detected (NOT DETECT) 05/27/22 23:07 SARS-CoV-2 (PCR) Not detected (NOT DETECT) 05/27/22 20:46 Critical Care Time Critical Care Time: Critical Care Time: Yes Total Critical Care Time: 40 Attestation: Due to a high probability of clinically significant, possibly life threatening deterioration, the patient required my highest level of attention and preparedness to intervene emergently and I personally spent this critical care time directly and personally managing the patient. This critical care time included obtaining a history; examining the patient; pulse oximetry; ordering and review of laboratory and imaging studies; arranging urgent treatment with development of a management plan; evaluation of patient's response to treatment; frequent reassessment; and, discussions with other providers as applicable. It was exclusive of separately billable procedures. Primary system involved is respiratory Discharge Plan Discharge Patient Disposition: Admitted As Inpatient Admit Provider: Davis Rai Clinical Impression: Acute and chronic respiratory failure with hypoxia, Acute kidney injury superimposed on CKD, Pneumonia, Sepsis Condition: Stable Discharge Diet: Cardiac and Diabetic Discharge Activity: Increase activity as tolerated, Oxygen as instructed and Cpap/Bipap as instructed Coding Level of Care Code ED Foreman/Pile Driving And Erection for Alyse [place]
--- NOTE | 2022-05-27 20:28 | XRR_ITS ---
PROCEDURE INFORMATION: Exam: XR Chest Exam date and time: 05/27/2022 8:40 PM Age: 61 years old Clinical indication: Shortness of breath; Additional info: SOB TECHNIQUE: Imaging protocol: Radiologic exam of the chest. Views: 1 view. COMPARISON: CT chest con [id number] 04/24/2022 9:34 AM FINDINGS: Lungs: There is patchy airspace opacities throughout both lungs, most prominently in the right mid lung and lower lobes, consistent with multifocal pneumonia. Pleural spaces: No large pleural effusion. No pneumothorax. Heart/Mediastinum: Stable cardiomediastinal silhouette. Bones/joints: Unremarkable. XR/XR chest 1V portable [id number] IMPRESSION: Imaging findings of multifocal pneumonia, involving mainly the right lung.
[2022-05-27] MEDS: ipratropium-albuterol 3 mL Neb INHALATION (20:51)
[2022-05-27 20:53] LABS: Basophils % 0.2 %; Eosinophils % 0.1 %; Hematocrit 30.3 % (42.0-52.0); Lymphocytes # 2.3 10^3/uL (0.8-4.8); Lymphocytes % 12.3 %; Mean Corpuscular HGB Conc 29.7 g/dL (30.0-36.0); Mean Corpuscular Hemoglobin 27.8 pg (28.0-34.0); Mean Corpuscular Volume 93.5 fl (80-94); Monocytes # 1.3 10^3/uL (0.2-0.9); Monocytes % 7.1 %; Neutrophils # 14.36 10^3/uL (1.8-7.7); Neutrophils % 78.5 %; Nucleated Red Blood Cells % 0.1 %; Platelet Count 348 10^3/cmm (130-400); Red Blood Count 3.24 10^6/uL (4.1-5.3); Red Cell Distribution Width 15.6 % (12.1-15.1); White Blood Count 18.3 10^3/uL (4.0-10.0)
[2022-05-27] MEDS: cefepime 2,000 MG in sodium chloride 0.9% (plus) 50 ML 100 MG IV (21:02)
[2022-05-27 21:09] LABS: ABG PCO2 50.1 mmHg (35-45); Arterial Blood Gas Hematocrit 28.1 % (42-52); Blood Gas Allen Test Pos; Blood Gas Sample Site Radial, left; Blood Gas Sample Type Arterial; Carboxyhemoglobin 1.4 %THgb (0.4-20.1); HCO3 ABG 30.7 mmol/L (22-26); HGB O2 Sat 94.1 % (95-100); Methemoglobin 0.6 % (0.4-1.5); Oxygen Device BIPAP; PO2 ABG 79.6 mmHg (80.0-100.0); Total Hemoglobin 9.2 g/dL (14-18)
[2022-05-27 21:13] LABS: Lactic Sepsis W/Reflex 1.6 mmol/L (0.5-2.2); Troponin(5th) Baseline 68 ng/L (0-15)
--- NOTE | 2022-05-27 21:19 | ECG_ITS ---
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 Measurements Intervals [place] Rate: 105 P: 0 [place]: 0 QRS: 78 QRSD: 118 T: 267 QT: 359 QTc: 475 Interpretive Statements ATRIAL FIBRILLATION WITH RAPID VENTRICULAR RESPONSE MODERATE INTRAVENTRICULAR CONDUCTION DELAY [110+ ms QRS DURATION] ST DEVIATION AND MODERATE T-WAVE ABNORMALITY, CONSIDER INFERIOR ISCHEMIA [-0.1+ mV T-WAVE IN II/aVF] Compared to ECG 04/23/2022 21:03:08 Possible ischemia now present T-wave abnormality still present Electronically Signed On 05-28-2022 15:17:11 AUTOMATION CLERK by Douglas Tee M.D. [email or web address] [facility].[employer]/store/[id number]
[2022-05-27 21:22] LABS: Alanine Aminotransferase 11 U/L (0-41); Albumin Level 3.3 g/dL (3.5-5.2); Alkaline Phosphatase 63 U/L (40-130); Anion Gap 14.2 (5-19); Aspartate Amino Transferase 20 U/L (0-40); Blood Urea Nitrogen 38 mg/dL (8-23); Carbon Dioxide 29 mmol/L (22-29); Chloride 95 mmol/L (98-107); Globulin 4.1 g/dL (1.3-4.6); Glomerular Filtration Rate 25.2 mL/min (90-130); Glucose 173 mg/dL (65-115); NT Pro B Type Natriuretic Pept 4121 pg/mL (0-125); Osmolality Calculated 291 mOsm/kg (285-295); Potassium 4.2 mmol/L (3.5-5.1); Sodium 134 mmol/L (136-145); Total Bilirubin 0.5 mg/dL (0.15-1.2); Total Protein 7.4 g/dL (6.6-8.7)
--- NOTE | 2022-05-27 22:27 | ECG_ITS ---
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 Measurements Intervals [place] Rate: 110 P: 0 [place]: 0 QRS: 93 QRSD: 112 T: -75 QT: 341 QTc: 463 Interpretive Statements ATRIAL FIBRILLATION WITH RAPID VENTRICULAR RESPONSE BORDERLINE RIGHT AXIS DEVIATION [QRS AXIS > 90] LOW QRS VOLTAGE IN PRECORDIAL LEADS [QRS DEFLECTION < 1.0 mV IN CHEST LEADS] SEPTAL MYOCARDIAL INFARCTION , PROBABLY OLD [40+ ms Q WAVE IN V1/V2] MODERATE T-WAVE ABNORMALITY, CONSIDER INFERIOR ISCHEMIA [-0.1+ mV T-WAVE IN II/aVF] Compared to ECG 05/27/2022 21:19:13 Low QRS voltage now present Myocardial infarct finding now present Intraventricular conduction delay no longer present T-wave abnormality still present Possible ischemia still present Electronically Signed On 05-28-2022 15:18:35 PILE DRIVER ENGINEER by Douglas Tee M.D. [id number]
[2022-05-27 22:51] LABS: Troponin 5 2HR 68.68 ng/L (0-15)
[2022-05-27 22:51] LABS: Adenovirus Not Detected (NOT DETECT); Chlamydia Pneumoniae Not Detected (NOT DETECT); Coronavirus 229E,HKU1,NL63,OC4 Not Detected (NOT DETECT); Human Metapneumovirus Detected (NOT DETECT); Human Rhinovirus/Enterovirus Not Detected (NOT DETECT); Influenza A Not Detected (NOT DETECT); Influenza A H1 Not Detected (NOT DETECT); Influenza A H1-2009 Not Detected (NOT DETECT); Influenza A H3 Not Detected (NOT DETECT); Influenza B Not Detected (NOT DETECT); Mycoplasma Pneumoniae Not Detected (NOT DETECT); Parainfluenza Virus Type 1 Not Detected (NOT DETECT); Parainfluenza Virus Type 2 Not Detected (NOT DETECT); Parainfluenza Virus Type 3 Not Detected (NOT DETECT); Parainfluenza Virus Type 4 Not Detected (NOT DETECT); Respiratory Syncytial Virus A Not Detected (NOT DETECT); Respiratory Syncytial Virus B Not Detected (NOT DETECT); SARS-COV-2 Not Detected (NOT DETECT)
[2022-05-27 22:56] LABS: Troponin 5 2HR Delta 0.68 ABS# (0-10)
[2022-05-27 23:09] LABS: Human Metapneumovirus Detected (NOT DETECT); Human Rhinovirus/Enterovirus Not Detected (NOT DETECT); Results from Genmark
--- NOTE | 2022-05-27 23:19 | PM.HP ---
Providers/Chief Complaint Admitting Physician: Davis Rai MD Primary Care Provider: SKY Samuel-C Chief Complaint: sob History of Present Illness ?61 year old male with a past medical history of smoking, small airway disease, severe obesity hypoventilation syndrome,chronic respiratory failure, on home trilogy, chronically on 5 to 6 L, HFpEF,insulin-dependent type 2 diabetes mellitus, morbid obesity, GERD, hyperlipidemia and hypothyroidism, EDGAR, CKD, Multiple recent hospitalization for management of acute on chronic respiratory failure with hypoxia and hypercapnia ,Came in today with chief complaint of worsening shortness of breath, Significant desaturation with minimal ambulation, as well as, increased supplemental oxygen requirement at home, was using up to 8 L oxygen at home, and was still experiencing significant desaturation, he also had an episode of fever at home, along with sweating and chills, denies any coughing any sputum production X-ray chest: Showed multifocal pneumonia Pertinent labs, WBC 18.3, H&H 9/30, PLT : 348 , serum sodium 134 serum potassium 4.2, BUN 38 serum creatinine 2.6, lactic acid:1.6 Troponin trend 68-68, proBNP 4121, ABG: pH 7.40, PCO2 50, PO2 79, FiO2 60% COVID PCR negative Patient received: Cefepime and Solu-Medrol as well as nebs in the ER. Review of Systems General: Reports: 10 or more systems reviewed and unremarkable except in HPI and below Const: Reports: fever(s) and chills; Denies: body aches, change in appetite or diaphoresis Card: Reports: dyspnea on exertion and orthopnea; Denies: palpitations, edema, swelling of feet/ankles or leg pain with exertion Resp: Denies: dyspnea, productive cough, wheezing or pain on inspiration GI: Denies: abdominal pain, nausea, vomiting, diarrhea or constipation : Denies: flank pain or difficulty urinating Musc: Denies: back pain, extremity pain or extremity swelling Neuro: Denies: headache(s), difficulty walking or confusion Medications/Allergies Home Medications Medication Instructions Recorded Confirmed Last Taken Type amiodarone 200 mg tablet 200 mg PO DAILY #90 tabs 11/04/21 05/26/22 04/23/22 Rx rivaroxaban 20 mg tablet (Xarelto) 20 mg PO DAILY #90 tabs 11/04/21 05/26/22 04/23/22 Rx flash glucose scanning reader #1 ea 11/17/21 05/26/22 Unknown Rx (FreeStyle Jeremy 2 [place]) flash glucose sensor (FreeStyle #1 ea 11/17/21 05/26/22 Unknown Rx Jeremy 2 Sensor kit) amlodipine 10 mg tablet 10 mg PO DAILY #90 tabs 01/03/22 05/26/22 04/23/22 Rx colesevelam 625 mg tablet (WelChol) 1,875 mg PO BID #540 tabs 01/03/22 05/26/22 04/23/22 Rx hydralazine 100 mg tablet 100 mg PO TID #270 tabs 01/03/22 05/26/22 04/23/22 Rx potassium chloride 20 mEq 20 meq PO BID #180 tabs 01/03/22 05/26/22 04/23/22 Rx tablet,extended release pen needle, diabetic 31 gauge x #100 ea 01/27/22 05/26/22 Unknown Rx 5/16 (TechLITE Pen Needle) montelukast 10 mg tablet 10 mg PO DAILY #30 tabs 02/17/22 05/26/22 04/23/22 Rx (Singulair) fenofibrate nanocrystallized 145 145 mg PO BEDTIME 04/06/22 05/26/22 04/23/22 History mg tablet ascorbic acid (vitamin C) 500 mg 500 mg PO DAILY #30 tabs 04/08/22 05/26/22 04/23/22 Rx tablet metformin 500 mg tablet,extended 500 mg PO BID 04/24/22 05/26/22 04/23/22 History release 24 hr bumetanide 1 mg tablet 2 mg PO DAILY #30 tabs 05/09/22 05/26/22 Unknown Rx cyanocobalamin (vitamin B-12) 500 mcg PO DAILY #30 tabs 05/09/22 05/26/22 Unknown Rx 1,000 mcg tablet (Vitamin B-12) metolazone 5 mg tablet 2.5 mg PO DAILY 30 days #15 tabs 05/09/22 05/26/22 Unknown Rx metoprolol tartrate 25 mg tablet 25 mg PO BID@0900,2100 30 days #60 05/09/22 05/26/22 Unknown Rx tabs pantoprazole 40 mg tablet,delayed 40 mg PO BID 30 days #60 tabs 05/09/22 05/26/22 Unknown Rx release buspirone 15 mg tablet 15 mg PO BID #60 tabs 05/12/22 05/26/22 Unknown Rx cetirizine 10 mg tablet 10 mg PO DAILY #30 tabs 05/12/22 05/26/22 Unknown Rx levothyroxine 175 mcg tablet 175 mcg PO DAILY #30 tabs 05/12/22 05/26/22 Unknown Rx liraglutide 0.6 mg/0.1 mL (18 mg/3 1.8 mg (0.3 mL) SUBCUT Q24H #9 mL 05/12/22 05/26/22 Unknown Rx mL) subcutaneous pen injector (Victoza 3-Leonides) rosuvastatin 20 mg tablet 20 mg PO DAILY #30 tabs 05/12/22 05/26/22 Unknown Rx trazodone 100 mg tablet 100 mg PO BEDTIME #30 tabs 05/12/22 05/26/22 Unknown Rx umeclidinium 62.5 mcg-vilanterol 1 inh inhalation Q24H #60 ea 05/12/22 05/26/22 Unknown Rx 25 mcg/actuation powdr for inhalation (Anoro Ellipta) venlafaxine 150 mg 150 mg PO QAM #30 caps 05/12/22 05/26/22 Unknown Rx capsule,extended release 24 hr (Effexor XR) doxycycline hyclate 100 mg capsule 100 mg PO BID #20 caps 05/26/22 05/26/22 Unknown Rx (Vibramycin) insulin degludec 100 unit/mL (3 See Rx Instructions SUBCUT DAILY 05/26/22 05/26/22 Unknown Rx mL) subcutaneous pen (Tresiba #50 mL FlexTouch U-100 insulin) ipratropium 0.5 mg-albuterol 3 mg 3 ml inhalation BID Shortness Of 05/26/22 05/26/22 Unknown Rx (2.5 mg base)/3 mL nebulization Breath #180 mL soln prednisone 10 mg tablet 10 mg PO DAILY #10 tabs 05/26/22 05/26/22 Unknown Rx Allergies Allergy/AdvReac Type Severity Reaction Status Date / Time No Known Allergies Allergy Verified 05/26/22 09:36 PFSH Acute PFSH: Medical History Acquired lymphedema Acute diastolic heart failure Acute exacerbation of chronic obstructive airways disease Acute respiratory failure with hypercapnia Afib Allergic rhinitis due to pollen Anemia Anxiety Chronic atrial fibrillation with rapid ventricular response Chronic diastolic (congestive) heart failure Chronic kidney disease Chronic respiratory failure Congestive heart failure Diabetes mellitus with hyperglycemia, with long-term current use of insulin Elevated INR Essential (primary) hypertension GERD (gastroesophageal reflux disease) Hyperlipemia Hypothyroidism Hypoxia, sleep related Leukocytosis Morbid obesity with BMI of 50.0-59.9, adult MRSA infection NSTEMI (non-ST elevated myocardial infarction) Obesity hypoventilation syndrome EDGAR (obstructive sleep apnea) Pneumonia, unspecified organism Surgical History H/O esophagogastroduodenoscopy (02/18/21) History of bilateral cataract extraction 2019 and 2020 History of colonoscopy (02/18/21) History of gangrene Left buttocks requiring surgery May 2014 Family History Father Cancer Mother Heart disease CAD (coronary artery disease) Diabetes Heart attack Stroke Brother Heart attack Clotting disorder Stroke Sister Stroke Denies family history of Dementia Chronic kidney disease (CKD) Suicide Anesthesia complication Bleeding disorder Lung disease Social History Smoking and tobacco status: former smoker Quit status (tobacco): has quit using tobacco Year quit tobacco: 6 weeks ago Second hand smoke exposure: Yes Smoking risk assessment/counseling performed?: Yes Alcohol intake: former Year of sobriety/quit date alcohol: 1991 Desire information about alcohol rehabilitation?: No Counseling given: No Desire information about substance/drug rehabilitation?: No Counseling given: No Adopted: No Caregiver/support person: No Lives independently: Yes Household members: spouse Housing: House Marital status: service: No Current occupational status: disabled Pets and animals: Yes Current gender identity: Male Vitals/I&O/Wt Last Vital Signs Temp 99.8 F H 05/27/22 20:11 Pulse 108 H 05/27/22 22:46 Resp 24 H 05/27/22 22:46 BP 122/97 05/27/22 22:46 Pulse Ox 94 02/25/23 22:46 O2 Del Method 05/27/22 22:46 O2 Flow Rate 8 05/27/22 20:11 FiO2 60 05/27/22 20:51 05/27/22 05/27/22 05/28/22 14:59 22:59 06:59 Intake Total 50 / 50 Balance 50 / 50 Weight last 48 hrs Weight 171.458 kg Physical Exam Const: COMMON NORMALS: patient oriented x3 HENMT: COMMON NORMALS: normocephalic and atraumatic HEAD & SCALP: normocephalic and atraumatic Resp: COMMON NORMALS: clear to auscultation bilaterally AUSCULTATION: clear to auscultation bilaterally OTHER: Diminished air entry bilaterally Cardio: COMMON NORMALS: regular rate, regular rhythm, S1 normal heart sound present, S2 normal heart sound present, No gallops present (Cardio), No murmurs present (Cardio), No rub (Cardio) and Peripheral pulses 2+ throughout RATE: regular rate RHYTHM: regular rhythm HEART SOUNDS: S1 normal heart sound present and S2 normal heart sound present PERIPHERAL PULSES: Peripheral pulses 2+ throughout GI: COMMON NORMALS: Normal to inspection, nondistended, normoactive bowel sounds present, Soft to palpation, non-tender, No hepatosplenomegaly present and no masses AUSCULTATION: Yes normoactive bowel sounds PALPATION: Yes Soft to palpation and Yes No hepatosplenomegaly present RECTAL EXAM: Yes deferred Extremity: COMMON NORMALS: no clubbing, cyanosis or edema and no pedal edema Neuro: COMMON NORMALS: patient oriented x3 Data 05/27/22 20:46 05/27/22 20:46 Micro: Microbiology 05/27/22 20:55 Blood Culture - Preliminary Blood SPECIMEN COLLECTED 05/27/22 20:46 Blood Culture - Preliminary Blood SPECIMEN COLLECTED A&P Assessment and plan (1) Pneumonia: (2) Afib: (3) Acute on chronic respiratory failure: (4) Diabetes mellitus with hyperglycemia, with long-term current use of insulin: (5) Chronic diastolic (congestive) heart failure: Plan 61 year old male with a past medical history of smoking, small airway disease, severe obesity hypoventilation syndrome,chronic respiratory failure, on home trilogy, chronically on 5 to 6 L, HFpEF,insulin-dependent type 2 diabetes mellitus, morbid obesity, GERD, hyperlipidemia and hypothyroidism, EDGAR, CKD, Multiple recent hospitalization for management of acute on chronic respiratory failure with hypoxia and hypercapnia ,Came in today with chief complaint of worsening shortness of breath, Significant desaturation with minimal ambulation, as well as, increased supplemental oxygen requirement at home, was using up to 8 L oxygen at home, and was still experiencing significant desaturation, he also had an episode of fever at home, along with sweating and chills, denies any coughing any sputum production. Assesment : Acute on chronic respiratory failure with hypoxia and hypercapnia: Secondary to multifocal pneumonia, Follow sputum culture, blood culture, MRSA PCR, urine Legionella antigen, bacterial antigen panel. Given the overall immunocompromise status of the patient (chronically on steroid, diabetes) , frequent recent hospitalization, We will start him on broad-spectrum antibiotics vancomycin and meropenem, doxycycline has been added for atypical coverage.Low threshold for antifungal coverage. I will stay away from PJP pneumonia Bactrim IV Protocol. Antibiotic dosing is being done keeping his morbid obesity into account. Monitor x-ray chest ABG as needed Low threshold to get CT chest, for better delineation of underlying pneumonia. History of COPD: Chronically on 5 to 6 L oxygen, uses trilogy at home, currently not in exacerbation. Continue DuoNebs, on AVAPS, supplemental oxygen as needed. Heart failure with preserved ejection fraction, currently compensated: Continue Bumex 2 mg p.o. daily, monitor output charting, daily weight, monitor electrolytes History of atrial fibrillation: Continue amiodarone, metoprolol and Xarelto History of diabetes: SSI,FSG, diabetic diet History of hypothyroidism: Continue levothyroxine History of GI bleed in the past with positive FOBT: Continue Protonix twice daily Monitor H&H Obesity hypoventilation syndrome: Continue BiPAP CKD stage IV: Currently serum creatinine is more or less hovering around baseline Monitor BMP Avoid nephrotoxic's Monitor intake output charting CODE STATUS: Full code DVT prophylaxis: Not needed on Xarelto Attestations Medical Necessity Statement*: Patient is to be in hospital for management of multifocal pneumonia. Anticipated length of stay greater than than 2 midnights. Time Spent in Patient Care: Greater than 35 minutes Coding Level of Care Code 46603 Diagnoses Pneumonia J18.9 Afib I48.91 Acute on chronic respiratory failure J96.20 Diabetes mellitus with hyperglycemia, with long-term current use of insulin E11.65; Z79.4 Chronic diastolic (congestive) heart failure I50.32
[2022-05-28] VITALS (65 sets, daily range): BP systolic 108–135; BP diastolic 51–89; PULSE 69–90; RESP 12–28; TEMP 36.6–37; O2SAT 88–97
--- NOTE | 2022-05-28 00:44 | PC.PHAR ---
Pharmacokinetic dosing service Date: 05/28/22 Time: 43 Objective: Patient: Julius Dunlap Floor: 102-1 Age: 61 yo Serum creatinine: 2.6 mg/dL Height: 72.0 Inches Weight (kg): 171.458 Diagnosis: Relevant medical/social history: Cultures and sensitivities: Other labs: Assessment: IBW (kg): 77.60 Dosing wt(kg): 115.1 Estimated Creatinine clearance (ml/min): 32.7 CRCL method: Cockcroft and Gault using ibw(default). Drug selected: Vancomycin Loading dose (mg): 0 Vd (liters): 103.6 (factor used: 0.9 L/kg) Spencer (hr-1): 0.032 Half life (hrs): 21.66 Recommended dose: 2000 mg Interval: 24 hrs Infusion time (hrs): 1.5 Predicted peak (mcg/mL): 35.2 Predicted trough (mcg/mL): 17.13 Adjusted body weight was selected for vancomycin dosing. To switch back, select the total body weight option above. Renal function is stable [ ] /unstable [ ] Recommendations: Give Vancomycin 2000 mg q 24 hrs with an expected Cpeak of 35.2 mcg/ml and an expected Ctrough of 17.13 mcg/ml Renal dosing of other antibiotics (review renal dosing of other medications and list guidelines here): Thank you for the consult, will continue to follow. Signature: Loyda Davis [facility]ly [facility]
[2022-05-28] MEDS: meropenem 1,000 MG in sodium chloride 0.9% (plus) 50 ML 100 MG IV ×2 (00:56→11:37)
[2022-05-28 02:04] LABS: Glucose Point of Care 187 mg/dL (70-110)
[2022-05-28] MEDS: metoprolol tartrate 25 mg Tablet PO ×3 (02:11→21:02)
[2022-05-28] MEDS: doxycycline 100 mg Tablet PO ×3 (02:11→17:49)
[2022-05-28] MEDS: fenofibrate 145 mg Tablet PO ×2 (02:11→21:01)
[2022-05-28] MEDS: hyDRALAzine 50 mg Tablet 100 MG PO ×3 (02:12→21:02)
[2022-05-28] MEDS: pantoprazole DR 40 mg Tablet PO ×3 (02:12→17:50)
[2022-05-28] MEDS: BuSPIRONE 10 mg Tablet 15 MG PO ×3 (02:12→17:50)
[2022-05-28] MEDS: trazodone 100 mg Tablet PO ×2 (02:12→21:02)
--- NOTE | 2022-05-28 02:28 | ECG_ITS ---
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 Measurements Intervals Dwarf Rate: 80 P: 0 MD: 0 QRS: 32 QRSD: 120 T: 16 QT: 364 QTc: 422 Interpretive Statements ATRIAL FIBRILLATION POSSIBLE RIGHT VENTRICULAR CONDUCTION DELAY [RSR (QR) IN V1/V2] NONSPECIFIC T-WAVE ABNORMALITY Compared to ECG 05/27/2022 22:27:46 Myocardial infarct finding no longer present Possible ischemia no longer present T-wave abnormality still present Electronically Signed On 05-28-2022 15:18:29 REMOTE INPATIENT CODER by Douglas Tee M.D. [id number]
[2022-05-28 05:03] LABS: Basophils % 0.2 %; Hematocrit 28.3 % (42.0-52.0); Hemoglobin 8.3 g/dL (11.7-16.6); Lymphocytes # 1.2 10^3/uL (0.8-4.8); Mean Corpuscular HGB Conc 29.3 g/dL (30.0-36.0); Mean Corpuscular Hemoglobin 27.1 pg (28.0-34.0); Mean Corpuscular Volume 92.5 fl (80-94); Mean Platelet Volume 10.2 fL (7.4-10.4); Monocytes # 0.6 10^3/uL (0.2-0.9); Monocytes % 3.2 %; Neutrophils # 14.72 10^3/uL (1.8-7.7); Neutrophils % 86.9 %; Nucleated Red Blood Cells % 0 %; Platelet Count 317 10^3/cmm (130-400); Red Blood Count 3.06 10^6/uL (4.1-5.3); Red Cell Distribution Width 15.7 % (12.1-15.1)
[2022-05-28] MEDS: venlafaxine ER (24HR) 150 mg Capsule PO (05:08)
[2022-05-28 05:23] LABS: Troponin 5 6HR 57.27 ng/L (0-15)
[2022-05-28 05:29] LABS: Alanine Aminotransferase 10 U/L (0-41); Alkaline Phosphatase 62 U/L (40-130); Anion Gap 17.5 (5-19); Aspartate Amino Transferase 18 U/L (0-40); Blood Urea Nitrogen 40 mg/dL (8-23); Calcium 8.5 mg/dL (8.5-10.5); Carbon Dioxide 27 mmol/L (22-29); Chloride 95 mmol/L (98-107); Globulin 3.7 g/dL (1.3-4.6); Glomerular Filtration Rate 22.2 mL/min (90-130); Glucose 160 mg/dL (65-115); Magnesium 2.2 mg/dL (1.7-2.3); Osmolality Calculated 293 mOsm/kg (285-295); Potassium 4.5 mmol/L (3.5-5.1); Sodium 135 mmol/L (136-145); Total Bilirubin 0.4 mg/dL (0.15-1.2); Total Protein 6.7 g/dL (6.6-8.7)
[2022-05-28 05:31] LABS: Procalcitonin 6.04 ng/mL (0-0.5)
[2022-05-28 06:49] LABS: Glucose Point of Care 221 mg/dL (70-110)
[2022-05-28] MEDS: albuterol 2.5 mg/3 mL Neb INHALATION ×4 (07:40→20:29)
[2022-05-28 07:46] LABS: Glucose Point of Care 224 mg/dL (70-110)
[2022-05-28] MEDS: insulin lispro 100 unit/1 mL SUBCUT ×4 (07:51→21:02)
--- NOTE | 2022-05-28 07:59 | USR_ITS ---
PROCEDURE INFORMATION: Exam: US Duplex Lower Extremity Veins, Bilateral Exam date and time: 05/28/2022 6:40 PM Age: 61 years old Clinical indication: Swelling (edema) of limb; Lower extremity, bilateral TECHNIQUE: Imaging protocol: Real-time duplex ultrasound of the bilateral extremities with 2-D bell scale, color Doppler flow and spectral waveform analysis including responses to compression and other maneuvers (when performed) with image documentation. Complete exam focused on the lower extremity veins. COMPARISON: US renal BI* [id number] 04/27/2022 9:43 AM FINDINGS: Right deep veins: Unremarkable. The common femoral, femoral, proximal profunda femoral and popliteal veins are patent without thrombus. Normal Doppler waveforms. Normal compressibility and/or augmentation response. Right superficial veins: Saphenofemoral junction is patent without thrombus. Left deep veins: Unremarkable. The common femoral, femoral, proximal profunda femoral and popliteal veins are patent without thrombus. Normal Doppler waveforms. Normal compressibility and/or augmentation response. Left superficial veins: Saphenofemoral junction is patent without thrombus. Soft tissues: Unremarkable. US/[place] [id number] IMPRESSION: No evidence of deep vein thrombosis.
[2022-05-28] MEDS: amiodarone 200 mg Tablet PO (08:47)
[2022-05-28] MEDS: rivaroxaban 10 mg Tablet 20 MG PO (08:47)
[2022-05-28] MEDS: atorvastatin 40 mg Tablet 80 MG PO (08:48)
[2022-05-28] MEDS: montelukast sodium 10 mg Tablet PO (08:49)
[2022-05-28] MEDS: cyanocobalamin 1,000 mcg Tablet 500 MCG PO (08:49)
[2022-05-28] MEDS: levothyroxine 175 mcg Tablet PO (08:49)
[2022-05-28] MEDS: amlodipine 10 mg Tablet PO (08:49)
[2022-05-28 10:59] LABS: Glucose Point of Care 234 mg/dL (70-110)
--- NOTE | 2022-05-28 15:27 | PM.PN ---
Subjective Subjective: Patient was seen this morning, is at bedside he is much more alert and awake, he is resting on BiPAP, he feels a bit better, no fevers, no chills, no cough currently his tells me that he was actually doing quite well when he got home, worked with physical therapy, but the matter few days he slowly started to deteriorate, Vitals/I&O/Wt Last Vital Signs Temp 98.6 F 05/28/22 04:00 Pulse 77 05/28/22 12:35 Resp 15 05/28/22 12:35 BP 135/75 05/28/22 12:35 Pulse Ox 95 05/28/22 12:35 O2 Del Method 05/28/22 11:24 O2 Flow Rate 8 05/27/22 20:11 FiO2 40 05/28/22 11:24 05/28/22 05/28/22 05/28/22 06:59 14:59 22:59 Intake Total 1350 / 1400 890 / 890 Balance 1350 / 1400 890 / 890 Weight last 48 hrs Weight 171.458 kg Physical Exam Const: COMMON NORMALS: no acute distress and patient oriented x3 Resp: COMMON NORMALS: normal respiratory effort, No retractions, No use of accessory muscles and clear to auscultation bilaterally AUSCULTATION: clear to auscultation bilaterally Cardio: COMMON NORMALS: regular rate, regular rhythm, S1 normal heart sound present and S2 normal heart sound present RATE: regular rate RHYTHM: regular rhythm HEART SOUNDS: S1 normal heart sound present and S2 normal heart sound present GI: COMMON NORMALS: Normal to inspection, nondistended, normoactive bowel sounds present and non-tender Extremity: COMMON NORMALS: no pedal edema Neuro: COMMON NORMALS: patient oriented x3 Psych: COMMON NORMALS: mental status grossly normal Urinary Catheter Management: Jiménez: Cath Placed During This Visit: yes Urinary Catheter Date of Insertion: 05/28/22 Urinary Catheter Time of Insertion: 07:24 Data 05/28/22 02:34 05/28/22 02:34 Micro: Microbiology 05/28/22 05:20 MRSA Culture - Final Nose 05/28/22 01:45 Legionella Urinary Antigen - Final Urine,Voided Bacterial Antigens - Final 05/27/22 20:55 Blood Culture - Preliminary Blood SPECIMEN COLLECTED 05/27/22 20:46 Blood Culture - Preliminary Blood SPECIMEN COLLECTED A&P Assessment and plan (1) Pneumonia: (2) Afib: (3) Acute on chronic respiratory failure: (4) Diabetes mellitus with hyperglycemia, with long-term current use of insulin: (5) Chronic diastolic (congestive) heart failure: (6) Human metapneumovirus (hMPV) pneumonia: Plan 61 year old male with a past medical history of smoking, small airway disease, severe obesity hypoventilation syndrome,chronic respiratory failure, on home trilogy, chronically on 5 to 6 L, HFpEF,insulin-dependent type 2 diabetes mellitus, morbid obesity, GERD, hyperlipidemia and hypothyroidism, EDGAR, CKD, Multiple recent hospitalization for management of acute on chronic respiratory failure with hypoxia and hypercapnia ,Came in today with chief complaint of worsening shortness of breath, Significant desaturation with minimal ambulation, as well as, increased supplemental oxygen requirement at home, was using up to 8 L oxygen at home, and was still experiencing significant desaturation, he also had an episode of fever at home, along with sweating and chills, denies any coughing any sputum production. Assesment : Acute on chronic respiratory failure with hypoxia and hypercapnia: Secondary to multifocal pneumonia, metapneumovirus pneumonia COPD exacerbation Follow sputum culture, blood culture, MRSA PCR, urine Legionella antigen, bacterial antigen panel. Given the overall immunocompromise status of the patient (chronically on steroid, diabetes) , frequent recent hospitalization, We will start him on broad-spectrum antibiotics vancomycin and meropenem, doxycycline has been added for atypical coverage.Low threshold for antifungal coverage. I will stay away from PJP pneumonia Bactrim IV Protocol. Antibiotic dosing is being done keeping his morbid obesity into account. Monitor x-ray chest ABG as needed History of COPD: Chronically on 5 to 6 L oxygen, uses trilogy at home, currently not in exacerbation. Continue DuoNebs, on AVAPS, supplemental oxygen as needed. Solu-Medrol 40 every 8 hours Heart failure with preserved ejection fraction, currently compensated: He looks a bit bit dry Hold Bumex monitor output charting, daily weight, monitor electrolytes PETE on CKD, creatinine 2.9 hold off on further Bumex NSTEMI, likely supply demand ischemia from respiratory failure monitor History of atrial fibrillation: Continue amiodarone, metoprolol and Xarelto History of diabetes: SSI,FSG, diabetic diet History of hypothyroidism: Continue levothyroxine History of GI bleed in the past with positive FOBT: Continue Protonix twice daily Monitor H&H Obesity hypoventilation syndrome: Continue BiPAP Acute on chronic anemia 8.3 monitor, Hemoccult stool, iron i studies CKD stage IV: Currently serum creatinine is more or less hovering around baseline Monitor BMP Avoid nephrotoxic's Monitor intake output charting CODE STATUS: Full code DVT prophylaxis: Not needed on Xarelto Attestations Medical Necessity Statement*: Patient requires hospitalization for acute respiratory failure secondary COPD, metapneumovirus, multifocal pneumonia, COPD Coding Level of Care Code Acute Code for [facility] Fwd Diagnoses Pneumonia J18.9 Afib I48.91 Acute on chronic respiratory failure J96.20 Diabetes mellitus with hyperglycemia, with long-term current use of insulin E11.65; Z79.4 Chronic diastolic (congestive) heart failure I50.32 Human metapneumovirus (hMPV) pneumonia J12.3
[2022-05-28 16:08] LABS: Glucose Point of Care 222 mg/dL (70-110)
[2022-05-28 16:37] LABS: Ferritin 599 ng/mL (30-400); Iron 17 ug/dL (59-158); Percent Saturation 10.6 % (20-50); Total Iron Binding Capacity 160 mcg/dl; Unsaturated Iron Binding 143 ug/dL (112-347)
[2022-05-28 17:04] LABS: Add Urine Microscopic? YES; Bilirubin Urine Neg (Negative); Blood Urine 3+ (Negative); Glucose Urine UA Norm (Normal); Ketones Urine Negative (Negative); Leukocyte Esterase Urine Trace (Negative); Nitrate Urine Negative (Negative); Protein Urine 2+ (Negative); Specific Gravity, Urine 1.025 (1.005-1.030); Urine Appearance SL Hazy (CLEAR); Urine Color Yellow (Yellow); Urobilinogen Urine Norm (Negative); pH Urine 5 (5-7)
[2022-05-28 17:05] LABS: Add Urine Culture? Yes; Bacteria Urine 2+ /hpf; RBC Urine 15-25 /hpf (0-2); Squamous Epithelial Cell Urine RARE /hpf (0-5); WBC Urine 15-25 /hpf (0-5)
[2022-05-28 20:35] LABS: Glucose Point of Care 222 mg/dL (70-110)
[2022-05-29] VITALS (60 sets, daily range): BP systolic 117–166; BP diastolic 65–70; PULSE 75–94; RESP 15–36; TEMP 36.1–36.6; O2SAT 80–98
[2022-05-29] MEDS: meropenem 1,000 MG in sodium chloride 0.9% (plus) 50 ML 100 MG IV ×2 (00:01→12:10)
[2022-05-29 02:51] LABS: Basophils % 0.1 %; Eosinophils % 0.1 %; Hematocrit 28.8 % (42.0-52.0); Hemoglobin 8.7 g/dL (11.7-16.6); Lymphocytes # 1.6 10^3/uL (0.8-4.8); Lymphocytes % 10.6 %; Mean Corpuscular HGB Conc 30.2 g/dL (30.0-36.0); Mean Corpuscular Hemoglobin 28.1 pg (28.0-34.0); Mean Corpuscular Volume 92.9 fl (80-94); Mean Platelet Volume 10.4 fL (7.4-10.4); Monocytes # 0.7 10^3/uL (0.2-0.9); Monocytes % 4.4 %; Neutrophils # 12.32 10^3/uL (1.8-7.7); Neutrophils % 80.1 %; Nucleated Red Blood Cells % 0.1 %; Platelet Count 332 10^3/cmm (130-400); Red Cell Distribution Width 15.5 % (12.1-15.1); White Blood Count 15.4 10^3/uL (4.0-10.0)
[2022-05-29 03:33] LABS: Alanine Aminotransferase 10 U/L (0-41); Alkaline Phosphatase 68 U/L (40-130); Anion Gap 15.3 (5-19); Aspartate Amino Transferase 16 U/L (0-40); Blood Urea Nitrogen 50 mg/dL (8-23); Carbon Dioxide 28 mmol/L (22-29); Chloride 96 mmol/L (98-107); Glomerular Filtration Rate 26.4 mL/min (90-130); Glucose 156 mg/dL (65-115); Magnesium 2.5 mg/dL (1.7-2.3); Osmolality Calculated 297 mOsm/kg (285-295); Potassium 4.3 mmol/L (3.5-5.1); Sodium 135 mmol/L (136-145); Total Bilirubin 0.3 mg/dL (0.15-1.2)
[2022-05-29] MEDS: venlafaxine ER (24HR) 150 mg Capsule PO (06:14)
[2022-05-29 06:26] LABS: Glucose Point of Care 231 mg/dL (70-110)
[2022-05-29] MEDS: insulin lispro 100 unit/1 mL SUBCUT ×4 (08:28→21:40)
[2022-05-29] MEDS: BuSPIRONE 10 mg Tablet 15 MG PO ×2 (08:29→17:31)
[2022-05-29] MEDS: montelukast sodium 10 mg Tablet PO (08:29)
[2022-05-29] MEDS: doxycycline 100 mg Tablet PO ×2 (08:29→17:31)
[2022-05-29] MEDS: hyDRALAzine 50 mg Tablet 100 MG PO ×3 (08:29→21:36)
[2022-05-29] MEDS: rivaroxaban 10 mg Tablet 20 MG PO (08:29)
[2022-05-29] MEDS: levothyroxine 175 mcg Tablet PO (08:29)
[2022-05-29] MEDS: atorvastatin 40 mg Tablet 80 MG PO (08:29)
[2022-05-29] MEDS: metoprolol tartrate 25 mg Tablet PO ×2 (08:30→21:36)
[2022-05-29] MEDS: pantoprazole DR 40 mg Tablet PO ×2 (08:30→17:32)
[2022-05-29] MEDS: amiodarone 200 mg Tablet PO (08:30)
[2022-05-29] MEDS: amlodipine 10 mg Tablet PO (08:30)
[2022-05-29] MEDS: cyanocobalamin 1,000 mcg Tablet 500 MCG PO (08:30)
[2022-05-29] MEDS: albuterol 2.5 mg/3 mL Neb INHALATION ×3 (08:36→15:21)
[2022-05-29 11:14] LABS: Glucose Point of Care 338 mg/dL (70-110)
--- NOTE | 2022-05-29 12:20 | PC.CHAP ---
Pastoral Care Encounter/Spiritual Assessment Type of Contact [] Declined assisted living director visit [] Patient/Family/Request visit [] Outpatient visit [] Follow-up visit [] Physician referral [] Code/Alert [x] Routine visit [] Staff referral [] Actively dying [] Patient sleeping [x] Family support [] [] Out of room [] Palliative care [] [] Receiving care in room [] Pre-surgical visit [] Trauma [] Long length of stay [] ICU visit [] Other: Relational/Emotional Strength x[] Patient feels connected with others/family/visitors/staff [] Distress [] Loneliness/isolation [] Abandonment Spirituality of Patient [x] Person of Monalisa x[] Attends Anglican of their Monalisa [x] Believes in Prayer [x] Reads Bible or Mandaen materials [] There are Spiritual issues to be addressed Radiology Special Procedure Tech Interventions []x Prayer [x] Active listening [x] Non-anxious presence [x] Spiritual/emotional support [] Crisis/trauma care [] Spiritual counseling [] Bereavement support [] Provided bereavement packet [] Provided Bible/devotional materials [] Provided toy/stuffed animal, coloring book to patient or family member [] Provided Communion [] Anointing/[place] [] Salvation [x] Completed spiritual assessment [] Other: Impact on Illness or Injury [] Angry [] Fearful [] Anxious [] Often cries [] Exhaustion [] Unable to work [] Unable to attend adventism [] Unable to walk/stand [] Unable to read [] Unable to drive [] Unable to eat/drink [] Unable to sleep [] Unable to be with family [] Patient intubated [] Other: Summary Time spent with patient 10 min
[2022-05-29 18:11] LABS: Glucose Point of Care 347 mg/dL (70-110)
--- NOTE | 2022-05-29 19:35 | P.PN_ITS ---
Subjective Subjective: He feels he is showing improvement in terms of his breathing. He is not quite as dyspneic. Not having chest pain. Edema with improvement in lower extremities. No nausea vomiting or diarrhea. Vitals/I&O/Wt Last Vital Signs Temp 97.8 F 05/29/22 07:34 Pulse 83 05/29/22 17:05 Resp 18 05/29/22 17:05 BP 121/70 05/29/22 17:50 Pulse Ox 92 05/29/22 17:50 O2 Del Method 05/29/22 15:24 O2 Flow Rate 6 05/29/22 15:24 FiO2 40 05/28/22 16:00 05/29/22 05/29/22 05/29/22 06:59 14:59 22:59 Intake Total 550 / 1840 650 / 650 240 / 890 Output Total 750 / 1350 Balance -200 / 490 650 / 650 240 / 890 Weight last 48 hrs Weight 172.683 kg Weight 171.458 kg Physical Exam Narrative: Accompanied by family member. Sitting up at edge of bed. Const: COMMON NORMALS: patient oriented x3 and alert GENERAL APPEARANCE: cooperative ORIENTATION/CONSCIOUSNESS: Yes awake HENMT: COMMON NORMALS: oropharynx normal Neck/C-Spine: COMMON NORMALS: no JVD Resp: COMMON NORMALS: normal respiratory effort AUSCULTATION: diminished lung sounds Cardio: COMMON NORMALS: no JVD, regular rhythm, S1 normal heart sound present, S2 normal heart sound present and No murmurs present (Cardio) RHYTHM: regular rhythm HEART SOUNDS: S1 normal heart sound present and S2 normal heart sound present GI: COMMON NORMALS: Normal to inspection, nondistended, normoactive bowel sounds present, Soft to palpation and non-tender PALPATION: Yes Soft to palpation Extremity: COMMON NORMALS: no joint enlargement GENERAL: Yes edema (Trace) Neuro: COMMON NORMALS: patient oriented x3 and moves all extremities SENSORIUM/ORIENTATION: Yes alert Skin: COMMON NORMALS: no rashes or lesions noted GENERAL SKIN EXAM: no rashes or lesions noted Urinary Catheter Management: Jiménez: Cath Placed During This Visit: yes Reason for Continuing Indwelling Catheter: Other Urinary Catheter Date of Insertion: 05/28/22 Urinary Catheter Time of Insertion: 07:24 Data 05/29/22 02:30 05/29/22 02:30 Micro: Microbiology 05/27/22 20:55 Blood Culture - Preliminary Blood NEGATIVE TO DATE 05/27/22 20:46 Blood Culture - Preliminary Blood NEGATIVE TO DATE 05/28/22 05:20 MRSA Culture - Final Nose A&P Assessment and plan (1) Pneumonia: (2) Afib: (3) Acute on chronic respiratory failure: (4) Diabetes mellitus with hyperglycemia, with long-term current use of insulin: (5) Chronic diastolic (congestive) heart failure: (6) Human metapneumovirus (hMPV) pneumonia: Plan 61 year old male with a past medical history of smoking, small airway disease, severe obesity hypoventilation syndrome,chronic respiratory failure, on home trilogy, chronically on 5 to 6 L, HFpEF,insulin-dependent type 2 diabetes mellitus, morbid obesity, GERD, hyperlipidemia and hypothyroidism, EDGAR, CKD, Multiple recent hospitalization for management of acute on chronic respiratory failure with hypoxia and hypercapnia ,Came in today with chief complaint of worsening shortness of breath, Significant desaturation with minimal ambulation, as well as, increased supplemental oxygen requirement at home, was using up to 8 L oxygen at home, and was still experiencing significant desaturation, he also had an episode of fever at home, along with sweating and chills, denies any coughing any sputum producti on. Assesment : Acute on chronic respiratory failure with hypoxia and hypercapnia: With some improvement in oxygenation, requiring 6 L of oxygen. Subjectively is improving. WBC count decreasing at 15.4. Vitals reviewed, he is afebrile. Without tachycardia. Continue empiric antibiotic coverage with meropenem, vancomycin, doxycycline. Continue IV steroid for now, will decrease to 20 mg. MRSA PCR negative, if continues to improve, consider discontinuation of vancomyc in. Urine bacterial antigens negative. Secondary to multifocal pneumonia, metapneumovirus pneumonia COPD exacerbation Given the overall immunocompromise status of the patient (chronically on steroid, diabetes) at risk of severe infection, frequent recent hospitalization, Antibiotic dosing is being done keeping his morbid obesity into account. History of COPD: As above Chronically on 5 to 6 L oxygen, uses trilogy at home, currently not in exacerbation. Continue DuoNebs, on AVAPS, supplemental oxygen as needed. Heart failure with preserved ejection fraction, currently compensated: He looks a bit bit dry Continue to hold Bumex monitor output charting, daily weight. Reassess volume status. PETE on CKD, creatinine 2.9 hold off on further Bumex. Follow-up chemistry requested with antibiotic treatment, CKD. NSTEMI, likely supply demand ischemia from respiratory failure monitor History of atrial fibrillation: Continue amiodarone, metoprolol and Xarelto History of diabetes: SSI,FSG, diabetic diet History of hypothyroidism: Continue levothyroxine History of GI bleed in the past with positive FOBT: Continue Protonix twice daily Monitor H&H Obesity hypoventilation syndrome: Continue BiPAP Acute on chronic anemia 8.3 monitor, Hemoccult stool, iron i studies CKD stage IV: Currently serum creatinine is more or less hovering around baseline Monitor BMP Avoid nephrotoxic's Monitor intake output charting CODE STATUS: Full code DVT prophylaxis: Not needed on Xarelto Attestations Medical Necessity Statement*: Continue admission for assessment management of improving respiratory failure, pneumonia, CHF exacerbation and gentleman with chronic respiratory failure. Diagnoses Pneumonia J18.9 Afib I48.91 Acute on chronic respiratory failure J96.20 Diabetes mellitus with hyperglycemia, with long-term current use of insulin E11.65; Z79.4 Chronic diastolic (congestive) heart failure I50.32 Human metapneumovirus (hMPV) pneumonia J12.3
[2022-05-29] MEDS: fenofibrate 145 mg Tablet PO (21:36)
[2022-05-29] MEDS: trazodone 100 mg Tablet PO (21:37)
[2022-05-29 21:47] LABS: Glucose Point of Care 376 mg/dL (70-110)
[2022-05-30] VITALS (11 sets, daily range): BP systolic 124–160; BP diastolic 68–90; PULSE 72–92; RESP 16–22; TEMP 36.7; O2SAT 84–97
[2022-05-30] MEDS: meropenem 1,000 MG in sodium chloride 0.9% (plus) 50 ML 200 MG IV ×2 (01:12→11:50)
[2022-05-30 03:04] LABS: Glucose Point of Care 288 mg/dL (70-110)
[2022-05-30 04:13] LABS: Hemoglobin 8.2 g/dL (11.7-16.6); Mean Corpuscular HGB Conc 30.4 g/dL (30.0-36.0); Mean Corpuscular Hemoglobin 27.8 pg (28.0-34.0); Mean Corpuscular Volume 91.5 fl (80-94); Mean Platelet Volume 10.1 fL (7.4-10.4); Platelet Count 395 10^3/cmm (130-400); Red Blood Count 2.95 10^6/uL (4.1-5.3); Red Cell Distribution Width 15.6 % (12.1-15.1); White Blood Count 16.1 10^3/uL (4.0-10.0)
[2022-05-30 04:33] LABS: Alanine Aminotransferase 12 U/L (0-41); Albumin Level 2.9 g/dL (3.5-5.2); Alkaline Phosphatase 74 U/L (40-130); Anion Gap 13.5 (5-19); Aspartate Amino Transferase 18 U/L (0-40); Blood Urea Nitrogen 54 mg/dL (8-23); Calcium 8.7 mg/dL (8.5-10.5); Carbon Dioxide 29 mmol/L (22-29); Chloride 98 mmol/L (98-107); Globulin 3.8 g/dL (1.3-4.6); Glomerular Filtration Rate 34.1 mL/min (90-130); Glucose 267 mg/dL (65-115); Magnesium 2.6 mg/dL (1.7-2.3); Osmolality Calculated 306 mOsm/kg (285-295); Potassium 4.5 mmol/L (3.5-5.1); Sodium 136 mmol/L (136-145); Total Bilirubin 0.3 mg/dL (0.15-1.2); Total Protein 6.7 g/dL (6.6-8.7)
[2022-05-30 04:48] LABS: Slide Review Slide Review Perform
[2022-05-30 04:56] LABS: Total Cells Counted 100 (0-100)
[2022-05-30 04:57] LABS: Absolute Segmented Neutrophil 12.6 10/cmm (1.6-7.1); Band Neutrophils Absolute 0.3 10^3/cmm (0.0-1.2); Eosinophils 0 %; Lymphocytes 10 %; Lymphocytes Absolute 1.8 10^3/cmm (1.2-3.4); Monocytes Absolute 0.2 10^3/cmm (0.1-0.6); Segmented Neutrophils 78 %
[2022-05-30 04:58] LABS: Absolute Neutrophil 12.9 10^3/cmm (1.4-6.5); Platelet Estimate Normal (Normal)
[2022-05-30 04:59] LABS: Polychromasia 1+
[2022-05-30] MEDS: venlafaxine ER (24HR) 150 mg Capsule PO (05:18)
[2022-05-30 06:25] LABS: Glucose Point of Care 293 mg/dL (70-110)
[2022-05-30] MEDS: insulin lispro 100 unit/1 mL SUBCUT ×2 (08:02→11:51)
[2022-05-30] MEDS: albuterol 2.5 mg/3 mL Neb INHALATION ×2 (08:14→11:53)
[2022-05-30] MEDS: amiodarone 200 mg Tablet PO (09:18)
[2022-05-30] MEDS: doxycycline 100 mg Tablet PO (09:18)
[2022-05-30] MEDS: cyanocobalamin 1,000 mcg Tablet 500 MCG PO (09:18)
[2022-05-30] MEDS: montelukast sodium 10 mg Tablet PO (09:18)
[2022-05-30] MEDS: BuSPIRONE 10 mg Tablet 15 MG PO (09:19)
[2022-05-30] MEDS: rivaroxaban 10 mg Tablet 20 MG PO (09:20)
[2022-05-30] MEDS: atorvastatin 40 mg Tablet 80 MG PO (09:20)
[2022-05-30] MEDS: metoprolol tartrate 25 mg Tablet PO (09:20)
[2022-05-30] MEDS: amlodipine 10 mg Tablet PO (09:20)
[2022-05-30] MEDS: hyDRALAzine 50 mg Tablet 100 MG PO ×2 (09:21→15:16)
[2022-05-30] MEDS: pantoprazole DR 40 mg Tablet PO (09:21)
[2022-05-30] MEDS: levothyroxine 175 mcg Tablet PO (09:21)
[2022-05-30 11:05] LABS: Glucose Point of Care 341 mg/dL (70-110)
[2022-05-30] MEDS: saline nasal spray 44mL Btl 1 SPRAY NASAL (11:51)
--- NOTE | 2022-05-30 13:28 | PC.SOCIAL ---
Imm update Imm updated with patient. Copy of page 2 provided. Patient verbalized understanding. Copy in chart initialed, dated and timed.
--- NOTE | 2022-05-30 13:54 | P.DS_ITS ---
Discharge Providers Date of Admission: 05/27/22 23:12 Date of Discharge: May 30, 2022 Attending Provider at Admission: Davis Rai MD Attending Provider at Discharge: Mikael Alfonso Primary Care Provider: YONATHAN Samuel Diagnoses at Discharge Discharge Diagnosis (1) Pneumonia: Status: Acute (2) Afib: Status: Acute (3) Acute on chronic respiratory failure: Status: Acute (4) Diabetes mellitus with hyperglycemia, with long-term current use of insulin: Status: Chronic (5) Chronic diastolic (congestive) heart failure: Status: Chronic (6) Human metapneumovirus (hMPV) pneumonia: Status: Acute Reason for Visit Reason for Visit: sob Hospital Course Hospital Course 61-year-old gentleman was admitted for assessment management of pneumonia, COPD exacerbation, with acute on chronic respiratory failure requiring 8 L of oxygen on presentation, prior to that recently requiring 5 L at home, with human metapneumovirus infection found on presentation, multifocal pneumonia. Additionally CHF exacerbation. He also has DEGAR, OHS, uses NIPPV with sleep. Received treatment with IV steroid, breathing treatments, empirically treated with antibiotics. MRSA PCR was negative. Blood culture remains negative to date (preliminary). Legionella antigen and bacterial antigen panel were negative. His condition gradually improved, weaned down on oxygen support on 6 L. He is doing much better subjectively. On exam air entry is diminished but improved, no wheezing or adventitious sounds. With history of heart failure, but does not appear fluid overloaded during current admission. On presentation also with PETE, creatinine up to 2.9 which has been improving, today creatinine is down to 2. Diuretic was changed to as needed for now. Please reassess his recovery including volume status and renal function. He is asked to follow-up with pulmonology. Please follow-up also with regards to anemia with history of prior Hemoccult and with noted iron deficiency. Consider further endoscopic work-up once he recovers from current illnesses. Physical Exam Narrative: Accompanied by family member. Sitting up at edge of bed. Const: COMMON NORMALS: patient oriented x3 and alert GENERAL APPEARANCE: cooperative ORIENTATION/CONSCIOUSNESS: Yes awake HENMT: COMMON NORMALS: oropharynx normal Neck/C-Spine: COMMON NORMALS: no JVD Resp: COMMON NORMALS: normal respiratory effort AUSCULTATION: diminished lung sounds (With good improvement) Cardio: COMMON NORMALS: no JVD, regular rhythm, S1 normal heart sound present, S2 normal heart sound present and No murmurs present (Cardio) RHYTHM: regular rhythm HEART SOUNDS: S1 normal heart sound present and S2 normal heart sound present GI: COMMON NORMALS: Normal to inspection, nondistended, normoactive bowel sounds present, Soft to palpation and non-tender PALPATION: Yes Soft to palpation Extremity: COMMON NORMALS: no joint enlargement GENERAL: Yes edema (Trace) Neuro: COMMON NORMALS: patient oriented x3 and moves all extremities SENSORIUM/ORIENTATION: Yes alert Skin: COMMON NORMALS: no rashes or lesions noted GENERAL SKIN EXAM: no rashes or lesions noted Urinary Catheter Management: Jiménez: Cath Placed During This Visit: yes Reason for Continuing Indwelling Catheter: Accurate Measurement of Urinary Output in Critically Ill Patients Urinary Catheter Date of Insertion: 05/28/22 Urinary Catheter Time of Insertion: 07:24 Discharge Data Studies Completed and Pending Completed Studies During Hospitalization Category Date Time Status XR chest 1V portable [id number] Stat Exams 05/27/22 20:28 [place] [id number] Routine Ultrasound 05/28/22 07:59 Completed Pending at discharge Category Date Time Status Blood Culture Stat Lab 05/27/22 20:55 Results Occult Blood Stool [Immunochemical Fecal OCB] Routine Lab 05/28/22 15:31 Uncollected Sputum Culture and Gram Stain Routine Lab 05/27/22 23:18 Uncollected Vancomycin Trough Timed Lab 05/31/22 00:00 Ordered Radiology Impressions Chest X-Ray 05/27/22 20:28 IMPRESSION: Imaging findings of multifocal pneumonia, involving mainly the right lung. Venous Duplex 05/28/22 07:59 IMPRESSION: No evidence of deep vein thrombosis. Laboratory Results WBC 16.1 10^3/uL (4.0-10.0) H 05/30/22 03:28 RBC 2.95 10^6/uL (4.1-5.3) L 05/30/22 03:28 Hgb 8.2 g/dL (11.7-16.6) L 05/30/22 03:28 Hct 27.0 % (42.0-52.0) L 05/30/22 03:28 MCV 91.5 fl (80-94) 05/30/22 03:28 MCH 27.8 pg (28.0-34.0) L 05/30/22 03:28 MCHC 30.4 g/dL (30.0-36.0) 05/30/22 03:28 RDW 15.6 % (12.1-15.1) H 05/30/22 03:28 Plt Count 395 10^3/cmm (130-400) 05/30/22 03:28 MPV 10.1 fL (7.4-10.4) 05/30/22 03:28 Neut % (Auto) 80.1 % 05/29/22 02:30 Lymph % (Auto) Not Reportable 05/30/22 03:28 [place] % (Auto) Not Reportable 05/30/22 03:28 Eos % (Auto) 0.1 % 05/29/22 02:30 Baso % (Auto) 0.1 % 05/29/22 02:30 Neut # (Auto) 12.32 10^3/uL (1.8-7.7) H 05/29/22 02:30 Lymph # (Auto) Not Reportable 05/30/22 03:28 [place] # (Auto) Not Reportable 05/30/22 03:28 Eos # (Auto) 0.0 10^3/uL (0.0-0.8) 05/29/22 02:30 Baso # (Auto) 0.0 10^3/uL (0.0-0.1) 05/29/22 02:30 Nucleated RBC % (auto) 0.1 % 05/29/22 02:30 Total Counted 100 (0-100) 05/30/22 03:28 Atypical Lymphs % 1.0 % (0-5) 05/30/22 03: Absolute Neutrophils 12.9 10^3/cmm (1.4-6.5) H 05/30/22 03:28 Segmented Neutrophils 78 % 05/30/22 03: Abs Segm Neuts (Man) 12.6 10/cmm (1.6-7.1) H 05/30/22 03:28 Band Neutrophils 2.0 % 05/30/22 03:28 Abs Band Neuts (Man) 0.3 10^3/cmm (0.0-1.2) 05/30/22 03:28 Absolute Lymphocytes 1.8 10^3/cmm (1.2-3.4) 05/30/22 03:28 Lymphocytes (Manual) 10 % 05/30/22 03:28 Monocytes (Manual) 1.0 % 05/30/22 03:28 Absolute Monocytes 0.2 10^3/cmm (0.1-0.6) 05/30/22 03:28 Eosinophils (Manual) 0 % 05/30/22 03: Absolute Eosinophils 0.0 10^3/cmm (0.0-0.7) 05/30/22 03:28 Basophils (Manual) 0.0 % 05/30/22 03: Absolute Basophils 0.0 10^3/cmm (0.0-0.2) 05/30/22 03: Metamyelocytes 2.0 % 05/30/22 03: Myelocytes 6.0 % 05/30/22 03: Nucleated RBCs # 0.0 /100WBC 05/29/22 02: Platelet Estimate Normal (Normal) 05/30/22 03: Polychromasia 1+ H 05/30/22 03:28 Specimen Type Arterial 05/27/22 20:55 Sample Site Radial, left 05/27/22 20:55 ABG pH 7.40 (7.35-7.45) 05/27/22 20:55 ABG pCO2 50.1 mmHg (35-45) H 05/27/22 20:55 ABG pO2 79.6 mmHg (80.0-100.0) L 05/27/22 20:55 ABG HCO3 30.7 mmol/L (22-26) H 05/27/22 20:55 ABG Base Excess 5.0 mmol/L (-2.0-2.0) H 05/27/22 20:55 Avila Test Pos 05/27/22 20:55 Hematocrit 28.1 % (42-52) L 05/27/22 20:55 Hgb O2 Saturation 94.1 % (95-100) L 05/27/22 20:55 Carboxyhemoglobin 1.4 %THgb (0.4-20.1) 05/27/22 20:55 Methemoglobin 0.6 % (0.4-1.5) 05/27/22 20:55 Total Hemoglobin 9.2 g/dL (14-18) L 05/27/22 20:55 O2 Delivery Device Bipap 05/27/22 20:55 FiO2 60.0 % 05/27/22 20:55 PEEP 10.0 cmH20 05/27/22 20:55 It Security Specialist ID [email or web address] 05/27/22 20:55 Sodium 136 mmol/L (136-145) 05/30/22 03:28 Potassium 4.5 mmol/L (3.5-5.1) 05/30/22 03:28 Chloride 98 mmol/L (98-107) 05/30/22 03:28 Carbon Dioxide 29 mmol/L (22-29) 05/30/22 03:28 Anion Gap 13.5 (5-19) 05/30/22 03:28 BUN 54 mg/dL (8-23) H 05/30/22 03:28 Creatinine 2.0 mg/dL (0.7-1.2) H 05/30/22 03:28 GFR Calculation 34.1 mL/min (90-130) L 05/30/22 03:28 Glucose 267 mg/dL (65-115) H 05/30/22 03:28 POC Glucose 341 mg/dL (70-110) H 05/30/22 10:35 Calculated Osmolality 306 mOsm/kg (285-295) H 05/30/22 03:28 Lactic Acid 1.6 mmol/L (0.5-2.2) 05/27/22 20:46 Calcium 8.7 mg/dL (8.5-10.5) 05/30/22 03:28 Magnesium 2.6 mg/dL (1.7-2.3) H 05/30/22 03:28 Iron 17 ug/dL (59-158) L 05/28/22 02:34 TIBC 160 mcg/dl 05/28/22 02:34 % Saturation 10.6 % (20-50) L 05/28/22 02:34 Unsat Iron Binding 143 ug/dL (112-347) 05/28/22 02:34 Ferritin 599 ng/mL (30-400) H 05/28/22 02:34 Total Bilirubin 0.3 mg/dL (0.15-1.2) 05/30/22 03:28 AST 18 U/L (0-40) 05/30/22 03:28 ALT 12 U/L (0-41) 05/30/22 03:28 Alkaline Phosphatase 74 U/L (40-130) 05/30/22 03:28 Troponin T Baseline 68 ng/L (0-15) H 05/27/22 20:46 Troponin T 120 Minute 68.68 ng/L (0-15) H 05/27/22 22:23 Delta Troponin T 0.68 ABS# (0-10) 05/27/22 22:23 Troponin T Hi Sens 6Hr 57.27 ng/L (0-15) H 05/28/22 02:34 Troponin T Hi Sens 6Hr Delta -10.73 ng/L (0-12) L 05/28/22 02:34 NT-Pro-B Natriuret Pep 4121 pg/mL (0-125) H 05/27/22 20:46 Total Protein 6.7 g/dL (6.6-8.7) 05/30/22 03:28 Albumin 2.9 g/dL (3.5-5.2) L 05/30/22 03:28 Globulin 3.8 g/dL (1.3-4.6) 05/30/22 03:28 Procalcitonin 6.04 ng/mL (0-0.5) H 05/28/22 02:34 Urine Color Yellow (Yellow) 05/28/22 15:57 Urine Appearance Sl hazy (CLEAR) A 05/28/22 15:57 Urine pH 5 (5-7) 05/28/22 15:57 Ur Specific [place] 1.025 (1.005-1.030) 05/28/22 15:57 Urine Protein 2+ (Negative) H 05/28/22 15:57 Urine Glucose (UA) Norm (Normal) 05/28/22 15:57 Urine Ketones Negative (Negative) 05/28/22 15:57 Urine Blood 3+ (Negative) H 05/28/22 15:57 Urine Nitrate Negative (Negative) 05/28/22 15:57 Urine Bilirubin Neg (Negative) 05/28/22 15:57 Urine Urobilinogen Norm mg/dL (Negative) 05/28/22 15:57 Ur Leukocyte Esterase Trace (Negative) H 05/28/22 15:57 Urine RBC 15-25 /hpf (0-2) H 05/28/22 15:57 Urine WBC 15-25 /hpf (0-5) H 05/28/22 15:57 Ur Squamous Epith Cells Rare /hpf (0-5) 05/28/22 15:57 Amorphous Sediment Not Reportable 05/28/22 15:57 Urine Bacteria 2+ /hpf (NONE) H 05/28/22 15:57 Coronavirus 229E (PCR) Not detected (NOT DETECT) 05/27/22 20:46 Human Metapneumovir PCR Detected (NOT DETECT) A 05/27/22 23:07 Entero/Rhino (PCR) Not detected (NOT DETECT) 05/27/22 23:07 SARS-CoV-2 (PCR) Not detected (NOT DETECT) 05/27/22 20:46 Vitals Last Vital Signs Temp 98.0 F 05/30/22 12:00 Pulse 84 05/30/22 12:05 Resp 18 05/30/22 12:05 BP 160/74 05/30/22 12:00 Pulse Ox 95 05/30/22 12:05 O2 Del Method 05/30/22 12:05 O2 Flow Rate 6 05/30/22 12:05 FiO2 40 05/29/22 20:00 Discharge Plan Discharge Patient Disposition: Home Health Service Condition: Stable Prescriptions: New prednisone 5 mg tablet 5 mg PO DIRECTED Qty: 20 0RF Rx Instructions: 3 tab daily for 3 days, then 2 tab for 3 days, then 1 tab for 3 days, then 1/2 tab for 4 days. Continued (DME) FreeStyle Jeremy 2 Sensor Kit See Rx Instructions .Route Qty: 1 0RF Rx Instructions: As directed (DME) FreeStyle Jeremy 2 [place] Misc See Rx Instructions .Route Qty: 1 0RF Rx Instructions: As directed buspirone 15 mg tablet 15 mg PO BID Qty: 60 2RF cetirizine 10 mg tablet 10 mg PO DAILY Qty: 30 2RF levothyroxine 175 mcg tablet 175 mcg PO DAILY Qty: 30 2RF Rx Instructions: dose increase Victoza 3-Leonides 0.6 mg/0.1 mL (18 mg/3 mL) pen injector 1.8 mg SUBCUT Q24H Qty: 9 2RF rosuvastatin 20 mg tablet 20 mg PO DAILY Qty: 30 2RF trazodone 100 mg tablet 100 mg PO BEDTIME Qty: 30 2RF Anoro Ellipta 62.5-25 mcg/actuation blister with device 1 inh inhalation Q24H Qty: 60 2RF venlafaxine [Effexor XR] 150 mg capsule,extended release 24hr 150 mg PO QAM Qty: 30 2RF montelukast [Singulair] 10 mg tablet 10 mg PO DAILY Qty: 30 2RF Tresiba FlexTouch U-100 100 unit/mL (3 mL) insulin pen See Rx Instructions SUBCUT DAILY Qty: 50 2RF Rx Instructions: 40-60 subcutaneously daily; NO sent at home DOSE change ipratropium-albuterol 0.5 mg-3 mg(2.5 mg base)/3 mL solution for nebulization 3 ml INHALATION BID Qty: 180 0RF amiodarone 200 mg tablet 200 mg PO DAILY Qty: 90 1RF Rx Instructions: TAKE ONE TABLET BY MOUTH DAILY Xarelto 20 mg tablet 20 mg PO DAILY Qty: 90 1RF Rx Instructions: must administer with a meal/food amlodipine 10 mg tablet 10 mg PO DAILY Qty: 90 3RF Rx Instructions: Must be seen for further refills colesevelam [WelChol] 625 mg tablet 1,875 mg PO BID Qty: 540 3RF hydralazine 100 mg tablet 100 mg PO TID Qty: 270 3RF potassium chloride 20 mEq tablet extended release 20 meq PO BID Qty: 180 3RF Hold Instructions: Resume on 04/15/22. (DME) pen needle, diabetic [TechLITE Pen Needle] 31 gauge x 5/16 needle See Rx Instructions .ROUTE .MEDSUPPLY Qty: 100 5RF Rx Instructions: Three times a day metformin 500 mg tablet extended release 24 hr 500 mg PO BID cyanocobalamin (vitamin B-12) [Vitamin B-12] 1,000 mcg Tablet 500 mcg PO DAILY Qty: 30 0RF metolazone 5 mg Tablet 2.5 mg PO DAILY 30 Days Qty: 15 0RF Hold Instructions: Doctor's Order pantoprazole 40 mg Tablet,Delayed Release (Dr/Ec) 40 mg PO BID 30 Days Qty: 60 0RF metoprolol tartrate 25 mg Tablet 25 mg PO BID@0900,2100 30 Days Qty: 60 0RF fenofibrate nanocrystallized 145 mg tablet 145 mg PO BEDTIME ascorbic acid (vitamin C) 500 mg tablet 500 mg PO DAILY Qty: 30 0RF Changed bumetanide 1 mg Tablet 2 mg PO DAILY PRN (Reason: Edema) Qty: 30 0RF Discontinued prednisone 10 mg tablet 10 mg PO DAILY Qty: 10 0RF doxycycline hyclate [Vibramycin] 100 mg capsule 100 mg PO BID Qty: 20 0RF Discharge Orders: Discharge Order (Routine); Ordered 05/30/22 Ordered By: Mikael Alfonso Referrals: DatarOk MD [Physician] - 2 weeks Jeremiah Griffin FNP-C [Primary Care Provider] - 4-7 days Discharge Diet: Cardiac and Diabetic Discharge Activity: Increase activity as tolerated, Oxygen as instructed and Cpap/Bipap as instructed Patient Instructions: Heart Failure (GEN), Viral Pneumonia (GEN), COPD (Chronic Obstructive Pulmonary Disease) (GEN) Activity Restrictions/Additional Instructions: Follow-up regarding pneumonia, COPD exacerbation CHF, anemia, coronary disease, and other chronic conditions including diabetes, obesity hypoventilation syndrome among other with your primary provider. Follow-up with lung specialist. Maintain isolation at home over the next week to limit chance of spread of the virus as discussed. Follow-up with primary doctor regarding iron deficiency anemia, discussed risk of progression once you recover from acute illness. Discharge Attestations Time Spent in Discharge Care*: greater than 30 min Status at Discharge: Cognitive status at discharge: cognitively intact , Behavioral status at discharge: cooperative , Quality Metrics Clinical Quality Measures [ No reported AMI, CVA or VTE this stay] Coding Level of Care Code Acute Code for [facility] Diagnoses Pneumonia J18.9 Afib I48.91 Acute on chronic respiratory failure J96.20 Diabetes mellitus with hyperglycemia, with long-term current use of insulin E11.65; Z79.4 Chronic diastolic (congestive) heart failure I50.32 Human metapneumovirus (hMPV) pneumonia J12.3
--- NOTE | 2022-05-30 15:44 | PC.NURSE ---
discharge instructions given and explained.pt and spouse verb understanding.discharged via w/c to exit at 1530.spouse to drive pt home.
== END 2022-05-30 15:30 | disposition home health service (06) | DRG 193 ==
LOC: ER 22:45 → CSU 23:09
PROVIDERS: Family Medicine; Admitting Provider Internal Medicine; Emergency Provider Emergency Medicine; PCP Nurse Practitioner; Visit Provider Internal Medicine
DX: J12.3 Human metapneumovirus pneumonia (principal); I21.A1 Myocardial infarction type 2; J96.21 Acute and chronic respiratory failure with hypoxia; J96.22 Acute and chronic respiratory failure with hypercapnia; J44.0 Chronic obstructive pulmonary disease with (acute) lower respiratory infection; J44.1 Chronic obstructive pulmonary disease with (acute) exacerbation; E66.2 Morbid (severe) obesity with alveolar hypoventilation; Z68.43 Body mass index [BMI] 50.0-59.9, adult; N17.9 Acute kidney failure, unspecified; I13.0 Hypertensive heart and chronic kidney disease with heart failure and stage 1 through stage 4 chronic kidney disease, or unspecified chronic kidney disease; N18.4 Chronic kidney disease, stage 4 (severe); I50.32 Chronic diastolic (congestive) heart failure; I48.20 Chronic atrial fibrillation, unspecified; Z99.81 Dependence on supplemental oxygen; D50.9 Iron deficiency anemia, unspecified; E11.65 Type 2 diabetes mellitus with hyperglycemia; E11.22 Type 2 diabetes mellitus with diabetic chronic kidney disease; Z79.4 Long term (current) use of insulin; Z79.01 Long term (current) use of anticoagulants; Z79.84 Long term (current) use of oral hypoglycemic drugs; Z87.891 Personal history of nicotine dependence; E78.5 Hyperlipidemia, unspecified; E03.9 Hypothyroidism, unspecified; Z86.14 Personal history of Methicillin resistant Staphylococcus aureus infection
CPT/HCPCS: 36415; 36416; 36600; 51702; 71045; 80053; 81000; 81001; 82728; 82805; 82962; 83540; 83550; 83605; 83735; 83880; 84145; 84484; 85007; 85025; 86403; 87040; 87086; 87400; 87426; 87449; 87635; 87641; 87801; 93005; 93970; 94640; 94660; 94760; 96365; 96372; 99285; J0692; J1815; J2185; J2920; J2930; J3370; J7040; J7613

== ENCOUNTER → 2022-06-01 09:11 | Outpatient (BNVA) | payer MEDICARE, SELFPAY | PROVIDERS: PCP Nurse Practitioner; Visit Provider Nurse Practitioner | DX: E11.65 Type 2 diabetes mellitus with hyperglycemia (principal); Z79.4 Long term (current) use of insulin | CPT/HCPCS: 80053; 85007; 85025 ==

== ENCOUNTER → 2022-06-05 09:00 | Outpatient (BNVA) | payer MEDICARE, SELFPAY | PROVIDERS: PCP Nurse Practitioner; Visit Provider Nurse Practitioner | DX: I50.9 Heart failure, unspecified (principal) | CPT/HCPCS: 85007; 85025 ==

== ENCOUNTER 2022-06-07 10:37 | Outpatient (CLI) | payer MEDICARE, SELFPAY ==
--- NOTE | 2022-06-07 11:09 | XRR_ITS ---
PROCEDURE INFORMATION: Exam: XR Chest Exam date and time: 06/07/2022 11:20 AM Age: 61 years old Clinical indication: Condition or disease; Lung condition and disease; Copd; Cough and shortness of breath; Additional info: J44.1 - chronic obstructive pulmonary disease with (acute. . . TECHNIQUE: Imaging protocol: Radiologic exam of the chest. Views: 2 views. COMPARISON: CR (CHEST, ) 05/27/2022 8:40 PM FINDINGS: Lungs: Mild bibasilar airspace opacities, improved compared to 05/27/2022. Pleural spaces: Unremarkable. No pleural effusion. No pneumothorax. Heart/Mediastinum: Similar enlargement of the cardiopericardial silhouette. Bones/joints: Unremarkable. XR/XR chest 2V* [id number] IMPRESSION: Mild bibasilar airspace opacities, improved compared to 05/27/2022. There may be some mild residual atelectasis or infection.
== END 2022-06-07 10:38 | disposition home or self-care (01) ==
LOC: RAD CLINIC 10:44
PROVIDERS: PCP Nurse Practitioner; Visit Provider Nurse Practitioner
DX: J44.1 Chronic obstructive pulmonary disease with (acute) exacerbation (principal)
CPT/HCPCS: 71046

== ENCOUNTER → 2022-06-13 17:21 | Outpatient (BNVA) | payer MEDICARE, SELFPAY | PROVIDERS: PCP Nurse Practitioner; Visit Provider Internal Medicine Pulmonary Disease | DX: I50.9 Heart failure, unspecified (principal); J98.4 Other disorders of lung; E66.2 Morbid (severe) obesity with alveolar hypoventilation; Z68.43 Body mass index [BMI] 50.0-59.9, adult; J98.59 Other diseases of mediastinum, not elsewhere classified; F17.208 Nicotine dependence, unspecified, with other nicotine-induced disorders | CPT/HCPCS: 83735; 99214 ==

== ENCOUNTER 2022-07-21 11:27 | Emergency (ER) | payer MEDICARE, MEDICAID, SELFPAY ==
[2022-07-21 11:34] VITALS: BP 186/91; PULSE 89; TEMP 36.3; O2SAT 95
--- NOTE | 2022-07-21 11:44 | ED_ITS ---
HPI - Extremity Problem General: Chief complaint: Extremity Injury, Lower Stated complaint: Left side Leg injury Time Seen by Provider: 07/21/22 11:34 Source: patient Mode of arrival: ambulatory History of Present Illness: Her [id number] male presents emergency room complaining of left leg injury. He fell about 1 week ago Kolm he is not sure he has some skin tears and abrasions on the lateral aspect of the proximal lower leg on the left. He thinks it may have either been from a deer antler or a dog bite or possibly even some rocks. They did try to clean it out MD Complaint: extremity pain and extremity swelling Location: left Quality: burning Relieving factors: nothing Exacerbating factors: nothing Associated symptoms: Deny arthralgias, chest pain, fever(s), myalgias, rash or short of breath Review of Systems Const: Denies: fever(s), chills, fatigue or malaise ENMT: Denies: throat pain, ear or mastoid pain, nasal discharge or nasal co ngestion Card: Denies: chest pain Resp: Denies: dyspnea, productive cough or non-productive cough GI: Denies: abdominal pain, nausea, vomiting, hematemesis, coffee ground emesis, diarrhea, constipation, bloating, hematochezia or melena : Denies: flank pain, dysuria, urinary frequency or urinary urgency Musc: Reports: extremity pain and extremity swelling; Denies: neck pain or back pain Skin/Breast: Denies: rash PFSH ED PFSH: Medical History Acquired lymphedema Acute diastolic heart failure Acute exacerbation of chronic obstructive airways disease Acute respiratory failure with hypercapnia Afib Allergic rhinitis due to pollen Anemia Anxiety Chronic atrial fibrillation with rapid ventricular response Chronic diastolic (congestive) heart failure Chronic kidney disease Chronic respiratory failure Congestive heart failure Diabetes mellitus with hyperglycemia, with long-term current use of insulin Elevated INR Essential (primary) hypertension GERD (gastroesophageal reflux disease) Hyperlipemia Hypothyroidism Hypoxia, sleep related Leukocytosis Morbid obesity with BMI of 50.0-59.9, adult MRSA infection NSTEMI (non-ST elevated myocardial infarction) Obesity hypoventilation syndrome EDGAR (obstructive sleep apnea) Pneumonia, unspecified organism Surgical History H/O esophagogastroduodenoscopy (02/18/21) History of bilateral cataract extraction 2019 and 2020 History of colonoscopy (02/18/21) History of gangrene Left buttocks requiring surgery May 2014 Family History Father Cancer Mother Heart disease CAD (coronary artery disease) Diabetes Heart attack Stroke Brother Heart attack Clotting disorder Stroke Sister Stroke Denies family history of Dementia Chronic kidney disease (CKD) Suicide Anesthesia complication Bleeding disorder Lung disease Social History Smoking and tobacco status: former smoker Quit status (tobacco): has quit using tobacco Year quit tobacco: 6 weeks ago Second hand smoke exposure: Yes Smoking risk assessment/counseling performed?: Yes Alcohol intake: former Year of sobriety/quit date alcohol: 1992 Desire information about alcohol rehabilitation?: No Counseling given: No Substance/Drug Use: never Desire information about substance/drug rehabilitation?: No Counseling given: No Adopted: No Caregiver/support person: No Lives independently: Yes Household members: spouse Housing: House Marital status: service: No Current occupational status: disabled Pets and animals: Yes Do you think of yourself as: Straight/Heterosexual Current gender identity: Male Physical Exam Const: GENERAL APPEARANCE: cooperative and comfortable ORIENTATION/CONSCIOUSNESS: Yes awake, Yes oriented to person, Yes oriented to place and Yes oriented to time HENMT: COMMON NORMALS: normocephalic, atraumatic and hearing grossly normal bilaterally HEAD & SCALP: normocephalic and atraumatic Resp: COMMON NORMALS: normal respiratory effort, No retractions, No use of accessory muscles and clear to auscultation bilaterally AUSCULTATION: clear to auscultation bilaterally Cardio: COMMON NORMALS: regular rate, regular rhythm and No murmurs present (Cardio) RATE: regular rate RHYTHM: regular rhythm GI: COMMON NORMALS: Soft to palpation and No hepatosplenomegaly present AUSCULTATION: Yes normoactive bowel sounds PALPATION: Yes Soft to palpation, No Tenderness to palpation present (GI), No Guarding due to palpation present (GI) and Yes No hepatosplenomegaly present Extremity: COMMON NORMALS: capillary refill normal and no calf tenderness OTHER: Lower extremity edema bilaterally 2+ Neuro: SENSORIUM/ORIENTATION: Yes oriented to person, Yes oriented to place and Yes oriented to time Skin: OTHER: Skin abrasions and lacerations lateral left proximal lower leg there is no active bleeding bilaterally his lower extremities are significantly edematous according to the patient they are about at his baseline. Course Vital Signs: Vital signs: Vital Signs Temperature 97.4 F L 07/21/22 11:34 Pulse Rate 88 07/21/22 13:22 Blood Pressure 128/56 07/21/22 13:22 Pulse Oximetry 96 07/21/22 13:22 Oxygen Delivery Me thod Nasal Cannula 07/21/22 11:34 Oxygen Flow Rate 6 07/21/22 11:34 MDM - Extremity (Nontraumatic) Medical Decision Making Labs and imaging reviewed patient has chronic edema of the lower extremities there is abrasions on the lateral aspect with some redness and erythema approximately 3 inches in diameter no significant induration however. No purulent drainage. We will start him on topical mupirocin twice daily as well as doxycycline. Considered Bactrim however given his chronic renal disease poor choice. Follow-up with his primary care doctor within the next week return if he has further problems. Medical Records I reviewed the patient's medical records. Lab Data I reviewed the patient's lab results. 07/21/22 12:10 07/21/22 12:10 Radiology Impressions Tibia/Fibula X-Ray 07/21/22 11:53 IMPRESSION: 1. No acute osseous pathology. 2. Circumferential soft tissue swelling is evident. 3. No radio-dense foreign body. Laboratory Results WBC 13.7 10^3/uL (4.0-10.0) H 07/21/22 12:10 RBC 3.57 10^6/uL (4.1-5.3) L 07/21/22 12:10 Hgb 10.1 g/dL (11.7-16.6) L 07/21/22 12:10 Hct 34.1 % (42.0-52.0) L 07/21/22 12:10 MCV 95.5 fl (80-94) H 07/21/22 12:10 MCH 28.3 pg (28.0-34.0) 07/21/22 12:10 MCHC 29.6 g/dL (30.0-36.0) L 07/21/22 12:10 RDW 17.3 % (12.1-15.1) H 07/21/22 12:10 Plt Count 311 10^3/cmm (130-400) 07/21/22 12:10 MPV 9.6 fL (7.4-10.4) 07/21/22 12:10 Neut % (Auto) 59.9 % 07/21/22 12:10 Lymph % (Auto) 26.0 % 07/21/22 12:10 [place] % (Auto) 8.9 % 07/21/22 12:10 Eos % (Auto) 3.9 % 07/21/22 12:10 Baso % (Auto) 0.8 % 07/21/22 12:10 Neut # (Auto) 8.22 10^3/uL (1.8-7.7) H 07/21/22 12:10 Lymph # (Auto) 3.6 10^3/uL (0.8-4.8) 07/21/22 12:10 [place] # (Auto) 1.2 10^3/uL (0.2-0.9) H 07/21/22 12:10 Eos # (Auto) 0.5 10^3/uL (0.0-0.8) 07/21/22 12:10 Baso # (Auto) 0.1 10^3/uL (0.0-0.1) 07/21/22 12:10 Nucleated RBC % (auto) 0 % 07/21/22 12:10 Nucleated RBCs # 0.0 /100WBC 07/21/22 12:10 Sodium 138 mmol/L (136-145) 07/21/22 12:10 Potassium 4.0 mmol/L (3.5-5.1) 07/21/22 12:10 Chloride 101 mmol/L (98-107) 07/21/22 12:10 Carbon Dioxide 25 mmol/L (22-29) 07/21/22 12:10 Anion Gap 16.0 (5-19) 07/21/22 12:10 BUN 18 mg/dL (8-23) 07/21/22 12:10 Creatinine 1.2 mg/dL (0.7-1.2) 07/21/22 12:10 GFR Calculation 61.6 mL/min (90-130) L 07/21/22 12:10 Glucose 134 mg/dL (65-115) H 07/21/22 12:10 Calculated Osmolality 290 mOsm/kg (285-295) 07/21/22 12:10 Calcium 9.0 mg/dL (8.5-10.5) 07/21/22 12:10 Total Bilirubin 0.3 mg/dL (0.15-1.2) 07/21/22 12:10 AST 16 U/L (0-40) 07/21/22 12:10 ALT 9 U/L (0-41) 07/21/22 12:10 Alkaline Phosphatase 52 U/L (40-130) 07/21/22 12:10 Total Protein 7.2 g/dL (6.6-8.7) 07/21/22 12:10 Albumin 4.0 g/dL (3.5-5.2) 07/21/22 12:10 Globulin 3.2 g/dL (1.3-4.6) 07/21/22 12:10 Discharge Plan Discharge Patient Disposition: Home Clinical Impression: Laceration of skin Condition: Stable Prescriptions: New mupirocin 2 % ointment 1 applic topical BID Qty: 22 0RF doxycycline hyclate 100 mg capsule 100 mg PO BID 10 Days Qty: 20 0RF No Action (DME) FreeStyle Jeremy 2 Sensor Kit See Rx Instructions .Route Qty: 1 0RF Rx Instructions: As directed (DME) FreeStyle Jeremy 2 [place] Misc See Rx Instructions .Route Qty: 1 0RF Rx Instructions: As directed buspirone 15 mg tablet 15 mg PO BID Qty: 60 2RF cetirizine 10 mg tablet 10 mg PO DAILY Qty: 30 2RF levothyroxine 175 mcg tablet 175 mcg PO DAILY Qty: 30 2RF Rx Instructions: dose increase Victoza 3-Leonides 0.6 mg/0.1 mL (18 mg/3 mL) pen injector 1.8 mg SUBCUT Q24H Qty: 9 2RF rosuvastatin 20 mg tablet 20 mg PO DAILY Qty: 30 2RF trazodone 100 mg tablet 100 mg PO BEDTIME Qty: 30 2RF Anoro Ellipta 62.5-25 mcg/actuation blister with device 1 inh inhalation Q24H Qty: 60 2RF venlafaxine [Effexor XR] 150 mg capsule,extended release 24hr 150 mg PO QAM Qty: 30 2RF montelukast [Singulair] 10 mg tablet 10 mg PO DAILY Qty: 30 2RF Tresiba FlexTouch U-100 100 unit/mL (3 mL) insulin pen See Rx Instructions SUBCUT DAILY Qty: 50 2RF Rx Instructions: 40-60 subcutaneously daily; NO sent at home DOSE change ipratropium-albuterol 0.5 mg-3 mg(2.5 mg base)/3 mL solution for nebulization 3 ml INHALATION BID Qty: 180 0RF amlodipine 10 mg tablet 10 mg PO DAILY Qty: 90 3RF Rx Instructions: Must be seen for further refills colesevelam [WelChol] 625 mg tablet 1,875 mg PO BID Qty: 540 3RF hydralazine 100 mg tablet 100 mg PO TID Qty: 270 3RF potassium chloride 20 mEq tablet extended release 20 meq PO BID Qty: 180 3RF Hold Instructions: Resume on 04/15/22. (DME) pen needle, diabetic [TechLITE Pen Needle] 31 gauge x 5/16 needle See Rx Instructions .ROUTE .MEDSUPPLY Qty: 100 5RF Rx Instructions: Three times a day Xarelto 20 mg tablet 20 mg PO DAILY Qty: 90 3RF Rx Instructions: must administer with a meal/food amiodarone 200 mg tablet 200 mg PO DAILY Qty: 90 3RF Rx Instructions: TAKE ONE TABLET BY MOUTH DAILY metformin 500 mg tablet extended release 24 hr 500 mg PO BID cyanocobalamin (vitamin B-12) [Vitamin B-12] 1,000 mcg Tablet 500 mcg PO DAILY Qty: 30 0RF fenofibrate nanocrystallized 145 mg tablet 145 mg PO BEDTIME ascorbic acid (vitamin C) 500 mg tablet 500 mg PO DAILY Qty: 30 0RF prednisone 5 mg tablet 5 mg PO DIRECTED Qty: 20 0RF Rx Instructions: 3 tab daily for 3 days, then 2 tab for 3 days, then 1 tab for 3 days, then 1/2 tab for 4 days. bumetanide 1 mg Tablet 2 mg PO DAILY PRN (Reason: Edema) Qty: 30 0RF Discharge Orders: Discharge ED (Routine); Ordered 07/21/22 Ordered By: David Corley Referrals: Jeremiah Griffin, [facility] [Primary Care Provider] - Discharge Diet: Usual diet Discharge Activity: Increase activity as tolerated Patient Instructions: Opioid Safety, Pain Management Activity Restrictions/Additional Instructions: You are seen today to evaluate for the lacerations and abrasions on the left lower leg. No sign of foreign bodies slight elevation in your white count recommend you that we treated for infection use topical antibiotics twice a day and the oral antibiotics recheck with your doctor within the next week. Coding Level of Care Code ED Change Management Facilitator for Alyse [place]
--- NOTE | 2022-07-21 11:53 | XRR_ITS ---
PROCEDURE INFORMATION: Exam: XR Left Tibia and Fibula Exam date and time: 07/21/2022 12:04 PM Age: 61 years old Clinical indication: Injury or trauma; Fall; Blunt trauma; Lower leg; Left; Additional info: Fall, soft tissue fb TECHNIQUE: Imaging protocol: Radiologic exam of the left tibia and fibula. Views: 2 views. Total images: 2 COMPARISON: No relevant prior studies available. FINDINGS: Bones/joints: Enthesophyte of the quadriceps tendon insertion site on the patella. No acute fracture nor subluxation. No osseous erosion nor periosteal reaction. Soft tissues: Circumferential soft tissue swelling is evident. No radio-dense foreign body. Other findings: For XR/XR tibia fibula LT 2V [id number] IMPRESSION: 1. No acute osseous pathology. 2. Circumferential soft tissue swelling is evident. 3. No radio-dense foreign body.
[2022-07-21 12:01] VITALS: BP 116/84; O2SAT 94
[2022-07-21 12:16] LABS: Basophils # 0.1 10^3/uL (0.0-0.1); Basophils % 0.8 %; Eosinophils # 0.5 10^3/uL (0.0-0.8); Eosinophils % 3.9 %; Hematocrit 34.1 % (42.0-52.0); Hemoglobin 10.1 g/dL (11.7-16.6); Lymphocytes # 3.6 10^3/uL (0.8-4.8); Mean Corpuscular HGB Conc 29.6 g/dL (30.0-36.0); Mean Corpuscular Hemoglobin 28.3 pg (28.0-34.0); Mean Corpuscular Volume 95.5 fl (80-94); Mean Platelet Volume 9.6 fL (7.4-10.4); Monocytes # 1.2 10^3/uL (0.2-0.9); Monocytes % 8.9 %; Neutrophils # 8.22 10^3/uL (1.8-7.7); Neutrophils % 59.9 %; Nucleated Red Blood Cells % 0 %; Platelet Count 311 10^3/cmm (130-400); Red Blood Count 3.57 10^6/uL (4.1-5.3); Red Cell Distribution Width 17.3 % (12.1-15.1); White Blood Count 13.7 10^3/uL (4.0-10.0)
[2022-07-21 12:38] LABS: Alanine Aminotransferase 9 U/L (0-41); Alkaline Phosphatase 52 U/L (40-130); Aspartate Amino Transferase 16 U/L (0-40); Blood Urea Nitrogen 18 mg/dL (8-23); Carbon Dioxide 25 mmol/L (22-29); Chloride 101 mmol/L (98-107); Globulin 3.2 g/dL (1.3-4.6); Glomerular Filtration Rate 61.6 mL/min (90-130); Glucose 134 mg/dL (65-115); Osmolality Calculated 290 mOsm/kg (285-295); Sodium 138 mmol/L (136-145); Total Bilirubin 0.3 mg/dL (0.15-1.2); Total Protein 7.2 g/dL (6.6-8.7)
[2022-07-21 12:54] VITALS: BP 145/67; O2SAT 96
[2022-07-21] MEDS: bacitracin ointment Pkt 1 EACH TOPICAL (13:17)
[2022-07-21 13:22] VITALS: BP 128/56; PULSE 88; O2SAT 96
== END 2022-07-21 13:24 | disposition home or self-care (01) ==
PROVIDERS: Emergency Provider Family Medicine; PCP Nurse Practitioner
DX: S81.812A Laceration without foreign body, left lower leg, initial encounter (principal); S80.812A Abrasion, left lower leg, initial encounter; Z79.4 Long term (current) use of insulin; Z87.891 Personal history of nicotine dependence; I13.0 Hypertensive heart and chronic kidney disease with heart failure and stage 1 through stage 4 chronic kidney disease, or unspecified chronic kidney disease; E11.22 Type 2 diabetes mellitus with diabetic chronic kidney disease; N18.9 Chronic kidney disease, unspecified; I50.9 Heart failure, unspecified; E78.5 Hyperlipidemia, unspecified; I25.2 Old myocardial infarction; W19.XXXA Unspecified fall, initial encounter
CPT/HCPCS: 36415; 73590; 80053; 85025; 99284

== ENCOUNTER → 2022-07-24 14:14 | Outpatient (BNVA) | payer MEDICARE, MEDICAID, SELFPAY | PROVIDERS: PCP Nurse Practitioner; Visit Provider Specialist | DX: I13.0 Hypertensive heart and chronic kidney disease with heart failure and stage 1 through stage 4 chronic kidney disease, or unspecified chronic kidney disease (principal); E11.22 Type 2 diabetes mellitus with diabetic chronic kidney disease; E11.65 Type 2 diabetes mellitus with hyperglycemia; N18.9 Chronic kidney disease, unspecified; I50.32 Chronic diastolic (congestive) heart failure; Z87.891 Personal history of nicotine dependence; Z79.4 Long term (current) use of insulin; I48.20 Chronic atrial fibrillation, unspecified; Z79.01 Long term (current) use of anticoagulants | CPT/HCPCS: 99214 ==

== ENCOUNTER → 2022-08-08 09:48 | Outpatient (BNVA) | payer MEDICARE, MEDICAID, SELFPAY | PROVIDERS: PCP Nurse Practitioner; Visit Provider Nurse Practitioner | DX: E11.65 Type 2 diabetes mellitus with hyperglycemia (principal); Z79.4 Long term (current) use of insulin; F41.9 Anxiety disorder, unspecified; J96.11 Chronic respiratory failure with hypoxia; J96.12 Chronic respiratory failure with hypercapnia; I10 Essential (primary) hypertension | CPT/HCPCS: 80053; 80061; 81000; 83036; 84443; 85025 ==

== ENCOUNTER 2022-09-28 11:32 | Inpatient (IN) | payer MEDICARE, MEDICAID, SELFPAY ==
[2022-09-28] VITALS (14 sets, daily range): BP systolic 137–196; BP diastolic 62–97; PULSE 61–91; RESP 17–26; TEMP 36.3–36.8; O2SAT 83–98; BMI 51.1
--- NOTE | 2022-09-28 11:46 | ECG_ITS ---
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 Measurements Intervals [place] Rate: 83 P: 0 OK: 0 QRS: 93 QRSD: 114 T: 165 QT: 423 QTc: 498 Interpretive Statements ATRIAL FIBRILLATION BORDERLINE RIGHT AXIS DEVIATION [QRS AXIS > 90] MODERATE INTRAVENTRICULAR CONDUCTION DELAY [110+ ms QRS DURATION] NONSPECIFIC T-WAVE ABNORMALITY PROLONGED QT INTERVAL Compared to ECG 05/28/2022 03:48:44 Intraventricular conduction delay now present Prolonged QT interval now present T-wave abnormality still present Electronically Signed On 09-28-2022 12:14:40 CDT by Shelby Jones M.D. [id number]
--- NOTE | 2022-09-28 11:46 | XR_ITS ---
WS: [id number] Exam: XR chest 1V portable [id number] Date/Time of Exam: 09/28/2022 11:46 AM Reason For Exam: dyspnea/cough Comparison 06/07/2022. There is cardiac enlargement with pulmonary vascular congestion and probable pulmonary edema suggesti ng CHF. Right basal pleural effusion noted. Marked cardiac enlargement. No pneumothorax. Bony structu res are intact. The mediastinum is normal in contour for technique. XR/XR chest 1V portable [id number] IMPRESSION: 1. Cardiac enlargement with pulmonary vascular congestion and probable pulmonar y edema suggesting acute CHF. Right basal pleural effusion.
--- NOTE | 2022-09-28 11:52 | W.ED.SOB ---
HPI - SOB/Dyspnea General: Chief Complaint: Shortness of Breath/Dyspnea Stated Complaint: SOB Time Seen by Provider: 09/28/22 11:46 Source: patient Mode of arrival: ambulatory History of Present Illness: HPI Narrative: 60-year-old male with a history of COPD is oxygen dependent on 6 L/min has been increasingly short of breath last several days with a nonproductive cough denies chest pain. He did increase his oxygen to 8 L/min by nasal cannula. He continues to be short of breath. Interestingly he states he does not have a nebulizer at home and did not use any inhaled medications to try to improve this although he does have DuoNeb listed on his medication list. Denies any chest pain he is diabetic no known history of coronary artery disease he does have a history of atrial fibrillation states he is on an diet coagulation. MD elicited complaint: shortness of breath and cough Pertinent past history: COPD Onset (ago): day(s) (3) Timing: constant Severity: mild Exacerbating factors: nothing Relieving factors: oxygen Known history of: COPD Associated symptoms: Reports chest congestion, cough and orthopnea; Deny abdominal pain, chest pain, diaphoresis, dizziness, extremity pain, fever(s), hemoptysis, lightheadedness, myalgias, nausea, palpitations, paresthesias, polydipsia, polyuria, rash, sense of impending doom, syncope or vomiting Treatment prior to arrival: oxygen Review of Systems Const: Reports: fatigue and malaise; Denies: fever(s), chills or diaphoresis ENMT: Denies: throat pain, ear or mastoid pain, nasal discharge or nasal congestion Card: Reports: orthopnea; Denies: chest pain, palpitations, lightheadedness or syncope Resp: Reports: dyspnea, non-productive cough, wheezing and chest congestion; Denies: hemoptysis GI: Denies: abdominal pain, nausea or vomiting : Denies: flank pain, dysuria, urinary frequency or urinary urgency Musc: Denies: neck pain, back pain or extremity pain Skin/Breast: Denies: rash or pruritus Neuro: Denies: dizziness Endo: Denies: polyuria or polydipsia PFSH ED PFSH: Medical History Acquired lymphedema Acute diastolic heart failure Acute exacerbation of chronic obstructive airways disease Acute respiratory failure with hypercapnia Afib Allergic rhinitis due to pollen Anemia Anxiety Chronic atrial fibrillation with rapid ventricular response Chronic diastolic (congestive) heart failure Chronic kidney disease Chronic respiratory failure Congestive heart failure Diabetes mellitus with hyperglycemia, with long-term current use of insulin Elevated INR Essential (primary) hypertension GERD (gastroesophageal reflux disease) Hyperlipemia Hypothyroidism Hypoxia, sleep related Leukocytosis Morbid obesity with BMI of 50.0-59.9, adult MRSA infection NSTEMI (non-ST elevated myocardial infarction) Obesity hypoventilation syndrome EDGAR (obstructive sleep apnea) Pneumonia, unspecified organism Surgical History H/O esophagogastroduodenoscopy (02/18/21) History of bilateral cataract extraction 2019 and 2020 History of colonoscopy (02/18/21) History of gangrene Left buttocks requiring surgery May 2014 Family History Father Cancer Mother Heart disease CAD (coronary artery disease) Diabetes Heart attack Stroke Brother Heart attack Clotting disorder Stroke Sister Stroke Denies family history of Dementia Chronic kidney disease (CKD) Suicide Anesthesia complication Bleeding disorder Lung disease Social History Smoking and tobacco status: former smoker Quit status (tobacco): has quit using tobacco Year quit tobacco: 6 weeks ago Second hand smoke exposure: Yes Smoking risk assessment/counseling performed?: Yes Alcohol intake: former Year of sobriety/quit date alcohol: 1991 Desire information about alcohol rehabilitation?: No Counseling given: No Substance/Drug Use: never Desire information about substance/drug rehabilitation?: No Counseling given: No Adopted: No Caregiver/support person: No Lives independently: Yes Household members: spouse Housing: House Marital status: service: No Current occupational status: disabled Pets and animals: Yes Do you think of yourself as: Straight/Heterosexual Current gender identity: Male Physical Exam Const: GENERAL APPEARANCE: cooperative and comfortable ORIENTATION/CONSCIOUSNESS: Yes awake, Yes oriented to person, Yes oriented to place and Yes oriented to time HENMT: COMMON NORMALS: normocephalic, atraumatic and hearing grossly normal bilaterally HEAD & SCALP: normocephalic and atraumatic Resp: COMMON NORMALS: normal respiratory effort, No retractions and No use of accessory muscles AUSCULTATION: rales and wheezes Cardio: COMMON NORMALS: No murmurs present (Cardio) RHYTHM: abnormal rhythm irregularly irregular GI: COMMON NORMALS: Soft to palpation and No hepatosplenomegaly present AUSCULTATION: Yes normoactive bowel sounds PALPATION: Yes Soft to palpation, No Tenderness to palpation present (GI), No Guarding due to palpation present (GI) and Yes No hepatosplenomegaly present Extremity: COMMON NORMALS: normal to inspection, capillary refill normal and no calf tenderness GENERAL: Yes edema Neuro: SENSORIUM/ORIENTATION: Yes oriented to person, Yes oriented to place and Yes oriented to time Skin: COMMON NORMALS: no rashes or lesions noted GENERAL SKIN EXAM: no rashes or lesions noted Course Vital Signs: Vital signs: Vital Signs Temperature 98.2 F 09/28/22 11:35 Pulse Rate 61 09/28/22 12:48 Respiratory Rate 24 H 09/28/22 12:08 Blood Pressure 184/78 09/28/22 12:48 Pulse Oximetry 94 09/28/22 12:08 Oxygen Delivery Me thod BiPAP 09/28/22 12:08 Oxygen Flow Rate 6 09/28/22 11:57 Fraction of Inspir ed Oxygen 45 09/28/22 12:08 MDM - SOB/Dyspnea Medical Decision Making Patient has elevated blood pressure with decompensated congestive heart failure and some exacerbation of COPD. He is improved with the BiPAP nebulizers steroids and diuretics. Will admit for continued treatment medication adjustment respiratory support with BiPAP. He likely will need further evaluation as well discussed with hospitalist orders written. Patient has a history of A-fib but his rate is well controlled at this time. He is chronically anemic slightly worse and he has been recently but still above the level that would require Medical Records I reviewed the patient's medical records. Lab Data I reviewed the patient's lab results. 09/28/22 11:50 09/28/22 11:50 Labs/Radiology: Radiology Impressions Chest X-Ray 09/28/22 11:46 IMPRESSION: 1. Cardiac enlargement with pulmonary vascular congestion and probable pulmonary edema suggesting acute CHF. Right basal pleural effusion. Laboratory Results WBC 14.8 10^3/uL (4.0-10.0) H 09/28/22 11:50 RBC 3.40 10^6/uL (4.1-5.3) L 09/28/22 11:50 Hgb 9.5 g/dL (11.7-16.6) L 09/28/22 11:50 Hct 32.2 % (42.0-52.0) L 09/28/22 11:50 MCV 94.7 fl (80-94) H 09/28/22 11:50 MCH 27.9 pg (28.0-34.0) L 09/28/22 11:50 MCHC 29.5 g/dL (30.0-36.0) L 09/28/22 11:50 RDW 15.4 % (12.1-15.1) H 09/28/22 11:50 Plt Count 301 10^3/cmm (130-400) 09/28/22 11:50 MPV 9.8 fL (7.4-10.4) 09/28/22 11:50 Neut % (Auto) 72.0 % 09/28/22 11:50 Lymph % (Auto) 16.2 % 09/28/22 11:50 [place] % (Auto) 7.0 % 09/28/22 11:50 Eos % (Auto) 3.4 % 09/28/22 11:50 Baso % (Auto) 0.9 % 09/28/22 11:50 Neut # (Auto) 10.63 10^3/uL (1.8-7.7) H 09/28/22 11:50 Lymph # (Auto) 2.4 10^3/uL (0.8-4.8) 09/28/22 11:50 [place] # (Auto) 1.0 10^3/uL (0.2-0.9) H 09/28/22 11:50 Eos # (Auto) 0.5 10^3/uL (0.0-0.8) 09/28/22 11:50 Baso # (Auto) 0.1 10^3/uL (0.0-0.1) 09/28/22 11:50 Nucleated RBC % (auto) 0 % 09/28/22 11:50 Nucleated RBCs # 0.0 /100WBC 09/28/22 11:50 Sodium 141 mmol/L (136-145) 09/28/22 11:50 Potassium 4.9 mmol/L (3.5-5.1) 09/28/22 11:50 Chloride 106 mmol/L (98-107) 09/28/22 11:50 Carbon Dioxide 25 mmol/L (22-29) 09/28/22 11:50 Anion Gap 14.9 (5-19) 09/28/22 11:50 BUN 17 mg/dL (8-23) 09/28/22 11:50 Creatinine 1.1 mg/dL (0.7-1.2) 09/28/22 11:50 GFR Calculation 67.8 mL/min (90-130) L 09/28/22 11:50 Glucose 72 mg/dL (65-115) 09/28/22 11:50 Calculated Osmolality 292 mOsm/kg (285-295) 09/28/22 11:50 Calcium 9.0 mg/dL (8.5-10.5) 09/28/22 11:50 Total Bilirubin 0.5 mg/dL (0.15-1.2) 09/28/22 11:50 AST 15 U/L (0-40) 09/28/22 11:50 ALT 8 U/L (0-41) 09/28/22 11:50 Alkaline Phosphatase 91 U/L (40-130) 09/28/22 11:50 Total Protein 7.2 g/dL (6.6-8.7) 09/28/22 11:50 Albumin 3.6 g/dL (3.5-5.2) 09/28/22 11:50 Globulin 3.6 g/dL (1.3-4.6) 09/28/22 11:50 Discharge Plan Discharge Patient Disposition: Admitted As Inpatient Clinical Impression: CHF exacerbation, Afib, COPD exacerbation, Anemia Condition: Stable Prescriptions: No Action (DME) FreeStyle Jeremy 2 Sensor Kit See Rx Instructions .Route Qty: 1 0RF Rx Instructions: As directed (DME) FreeStyle Jeremy 2 [place] Misc See Rx Instructions .Route Qty: 1 0RF Rx Instructions: As directed ipratropium-albuterol 0.5 mg-3 mg(2.5 mg base)/3 mL solution for nebulization 3 ml INHALATION BID PRN (Reason: Shortness Of Breath) Tresiba FlexTouch U-100 100 unit/mL (3 mL) insulin pen See Rx Instructions SUBCUT DAILY Qty: 50 2RF Rx Instructions: 35 units subcutaneously daily buspirone 15 mg tablet 15 mg PO BID Qty: 60 2RF cetirizine 10 mg tablet 10 mg PO DAILY Qty: 30 2RF montelukast [Singulair] 10 mg tablet 10 mg PO DAILY Qty: 30 2RF rosuvastatin 20 mg tablet 20 mg PO DAILY Qty: 30 2RF trazodone 100 mg tablet 100 mg PO BEDTIME Qty: 30 2RF Anoro Ellipta 62.5-25 mcg/actuation blister with device 1 inh inhalation Q24H Qty: 60 2RF venlafaxine [Effexor XR] 150 mg capsule,extended release 24hr 150 mg PO QAM Qty: 30 2RF amlodipine 10 mg tablet 10 mg PO DAILY Qty: 90 3RF Rx Instructions: Must be seen for further refills colesevelam [WelChol] 625 mg tablet 1,875 mg PO BID Qty: 540 3RF hydralazine 100 mg tablet 100 mg PO TID Qty: 270 3RF potassium chloride 20 mEq tablet extended release 20 meq PO BID Qty: 180 3RF Hold Instructions: Resume on 04/15/22. (DME) pen needle, diabetic [TechLITE Pen Needle] 31 gauge x 5/16 needle See Rx Instructions .ROUTE .MEDSUPPLY Qty: 100 5RF Rx Instructions: Three times a day Xarelto 20 mg tablet 20 mg PO DAILY Qty: 90 3RF Rx Instructions: must administer with a meal/food amiodarone 200 mg tablet 200 mg PO DAILY Qty: 90 3RF levothyroxine 175 mcg tablet 175 mcg PO DAILY Qty: 30 2RF Victoza 3-Leonides 0.6 mg/0.1 mL (18 mg/3 mL) pen injector 1.8 mg SUBCUT Q24H Qty: 9 2RF metformin 500 mg tablet extended release 24 hr 1,000 mg PO BID cyanocobalamin (vitamin B-12) [Vitamin B-12] 1,000 mcg Tablet 500 mcg PO DAILY Qty: 30 0RF fenofibrate nanocrystallized 145 mg tablet 145 mg PO BEDTIME ascorbic acid (vitamin C) 500 mg tablet 500 mg PO DAILY Qty: 30 0RF bumetanide 1 mg Tablet 2 mg PO DAILY PRN (Reason: Edema) Qty: 30 0RF mupirocin 2 % ointment 1 applic topical BID Qty: 22 0RF Referrals: Jeremiah Griffin, HAND PRESSER-C [Primary Care Provider] - Coding Level of Care Code ED [employer] Consultant for [facility] [place]
[2022-09-28] MEDS: ipratropium-albuterol 3 mL Neb 6 ML INHALATION (12:03)
[2022-09-28 12:11] LABS: Basophils # 0.1 10^3/uL (0.0-0.1); Basophils % 0.9 %; Eosinophils # 0.5 10^3/uL (0.0-0.8); Eosinophils % 3.4 %; Hematocrit 32.2 % (42.0-52.0); Hemoglobin 9.5 g/dL (11.7-16.6); Lymphocytes # 2.4 10^3/uL (0.8-4.8); Lymphocytes % 16.2 %; Mean Corpuscular HGB Conc 29.5 g/dL (30.0-36.0); Mean Corpuscular Hemoglobin 27.9 pg (28.0-34.0); Mean Corpuscular Volume 94.7 fl (80-94); Mean Platelet Volume 9.8 fL (7.4-10.4); Neutrophils # 10.63 10^3/uL (1.8-7.7); Nucleated Red Blood Cells % 0 %; Platelet Count 301 10^3/cmm (130-400); Red Cell Distribution Width 15.4 % (12.1-15.1); White Blood Count 14.8 10^3/uL (4.0-10.0)
[2022-09-28 12:15] LABS: ABG PCO2 42.9 mmHg (35-45); ABG PH Result 7.39 (7.35-7.45); Alveolar-Arterial Oxygen Gradi 24.8 mmHg (5-10); Arterial Blood Gas Hematocrit 30.3 % (42-52); Base Excess ABG 0.4 mmol/L (-2.0-2.0); Blood Gas Allen Test Pos; Blood Gas Operator Identificat glc; Blood Gas Sample Site Radial, right; Blood Gas Sample Type Arterial; Carboxyhemoglobin 1.8 %THgb (0.4-20.1); HCO3 ABG 25.6 mmol/L (22-26); Ionized Calcium Level - ABG 1.2 mmol/L (1.1-1.4); Methemoglobin 0.4 % (0.4-1.5); Oxygen Device BIPAP; Oxygen Saturation ABG 96.1; PO2 ABG 76.6 mmHg (80.0-100.0); Potassium Level - ABG 4.7 mmol/L (3.5-5.0); Total Hemoglobin 9.9 g/dL (14-18)
[2022-09-28 12:22] LABS: Alanine Aminotransferase 8 U/L (0-41); Albumin Level 3.6 g/dL (3.5-5.2); Alkaline Phosphatase 91 U/L (40-130); Anion Gap 14.9 (5-19); Aspartate Amino Transferase 15 U/L (0-40); Blood Urea Nitrogen 17 mg/dL (8-23); Carbon Dioxide 25 mmol/L (22-29); Chloride 106 mmol/L (98-107); Globulin 3.6 g/dL (1.3-4.6); Glomerular Filtration Rate 67.8 mL/min (90-130); Glucose 72 mg/dL (65-115); Osmolality Calculated 292 mOsm/kg (285-295); Potassium 4.9 mmol/L (3.5-5.1); Sodium 141 mmol/L (136-145); Total Bilirubin 0.5 mg/dL (0.15-1.2); Total Protein 7.2 g/dL (6.6-8.7)
[2022-09-28] MEDS: dexamethasone 10 mg/mL INJ IVP (12:34)
[2022-09-28] MEDS: hyDRALAzine 20 mg/mL INJ 1 mL IVP (13:13)
[2022-09-28] MEDS: bumetanide 0.25 mg/mL SDV 4 mL 2 MG IVP (13:13)
--- NOTE | 2022-09-28 17:02 | P.HP_ITS ---
Providers/Chief Complaint Admitting Physician: Jenniffer Acevedo MD Primary Care Provider: Jeremiah Griffin, ONLINE CONTENT DEVELOPER-C Chief Complaint: SOB History of Present Illness Julius Dunlap is a 62 year old male with a past medical history of smoking, small airway disease, severe obesity hypoventilation syndrome,chronic respiratory failure, on home trilogy machine, diastolic CHF, chronically on 5 to 6 L, insulin-dependent type 2 diabetes mellitus, morbid obesity, GERD, hyperlipidemia and hypothyroidism, EDGAR, CKD, who has been hospitalized multiple times this year for diastolic CHF exacerbation. He presents today with 2 weeks of worsening dyspnea. worse with exertion. He has been needing 10lpm at home. No cough, chest pain, palpitations, recent URI symptoms. CXR with B/L infiltrates and cardiomegaly . he was placed on a Bipap upon arrival due to resp distress. ABG 7.39/42.9/76.6/25.6/94% Review of Systems General: Reports: 10 or more systems reviewed and unremarkable except in HPI and below Const: Denies: fever(s), chills or body aches Eyes: Denies: change in vision, blurry vision or photophobia ENMT: Reports: hoarseness; Denies: throat pain, enlarged tonsils, odynophagia or nasal congestion Card: Denies: chest pain, palpitations, irregular heart rhythm, edema, swelling of feet/ankles, lightheadedness, pre-syncope, dyspnea on exertion or orthopnea Resp: Denies: dyspnea, productive cough, non-productive cough, wheezing, stridor, pain on inspiration, change in phlegm color, hemoptysis or chest congestion GI: Denies: abdominal pain, nausea, vomiting, hematemesis, coffee ground emesis, dysphagia, heartburn, diarrhea, constipation, GI cramping, change in stool character, hematochezia or melena : Denies: flank pain, dysuria, urinary frequency, urinary urgency, urinary hesitancy or hematuria Musc: Denies: neck pain, back pain, extremity pain, joint swelling, joint warmth or deformity Neuro: Denies: headache(s), numbness in extremities, weakness in extremities, sensory changes, difficulty walking, frequent falls, dizziness, vertigo, behavioral changes, Slurred speech present or seizure-like activity Psych: Denies: anxiety, depression, suicidal ideation or homicidal ideation Endo: Denies: polyuria, polydipsia, tired all the time, cold intolerance or hot flashes [place]al/Lymph: Denies: easy bruising or easy bleeding Medications/Allergies Home Medications Medication Instructions Recorded Confirmed Last Taken Type flash glucose scanning reader #1 ea 11/17/21 09/28/22 Unknown Rx (FreeStyle Jeremy 2 [place]) flash glucose sensor (FreeStyle #1 ea 11/17/21 09/28/22 Unknown Rx Jeremy 2 Sensor kit) amlodipine 10 mg tablet 10 mg PO DAILY #90 tabs 01/03/22 09/28/22 09/28/22 Rx colesevelam 625 mg tablet (WelChol) 1,875 mg PO BID #540 tabs 01/03/22 09/28/22 09/28/22 Rx hydralazine 100 mg tablet 100 mg PO TID #270 tabs 01/03/22 09/28/22 09/28/22 Rx potassium chloride 20 mEq 20 meq PO BID #180 tabs 01/03/22 09/28/22 09/28/22 Rx tablet,extended release pen needle, diabetic 31 gauge x #100 ea 01/27/22 09/28/22 Unknown Rx 5/16 (TechLITE Pen Needle) fenofibrate nanocrystallized 145 145 mg PO BEDTIME 04/06/22 09/28/22 09/28/22 History mg tablet ascorbic acid (vitamin C) 500 mg 500 mg PO DAILY #30 tabs 04/08/22 09/28/22 09/28/22 Rx tablet metformin 500 mg tablet,extended 1,000 mg PO BID 04/24/22 09/28/22 09/28/22 History release 24 hr cyanocobalamin (vitamin B-12) 500 mcg PO DAILY #30 tabs 05/09/22 09/28/22 09/28/22 Rx 1,000 mcg tablet (Vitamin B-12) insulin degludec 100 unit/mL (3 See Rx Instructions SUBCUT DAILY 05/26/22 09/28/22 09/28/22 Rx mL) subcutaneous pen (Tresiba #50 mL FlexTouch U-100 insulin) bumetanide 1 mg tablet 2 mg PO DAILY PRN Edema #30 tabs 05/30/22 09/28/22 Unknown Rx amiodarone 200 mg tablet 200 mg PO DAILY #90 tabs 07/06/22 09/28/22 09/28/22 Rx rivaroxaban 20 mg tablet (Xarelto) 20 mg PO DAILY #90 tabs 07/06/22 09/28/22 09/28/22 Rx mupirocin 2 % topical ointment 1 applic topical BID #22 grams 07/21/22 09/28/22 Unknown Rx ipratropium 0.5 mg-albuterol 3 mg 3 ml inhalation BID PRN Shortness 07/24/22 09/28/22 09/28/22 History (2.5 mg base)/3 mL nebulization Of Breath soln buspirone 15 mg tablet 15 mg PO BID #60 tabs 08/08/22 09/28/22 09/28/22 Rx cetirizine 10 mg tablet 10 mg PO DAILY #30 tabs 08/08/22 09/28/22 09/28/22 Rx montelukast 10 mg tablet 10 mg PO DAILY #30 tabs 08/08/22 09/28/22 09/28/22 Rx (Singulair) rosuvastatin 20 mg tablet 20 mg PO DAILY #30 tabs 08/08/22 09/28/22 09/28/22 Rx trazodone 100 mg tablet 100 mg PO BEDTIME #30 tabs 08/08/22 09/28/22 09/27/22 Rx umeclidinium 62.5 mcg-vilanterol 1 inh inhalation Q24H #60 ea 08/08/22 09/28/22 09/28/22 Rx 25 mcg/actuation powdr for inhalation (Anoro Ellipta) venlafaxine 150 mg 150 mg PO QAM #30 caps 08/08/22 09/28/22 09/28/22 Rx capsule,extended release 24 hr (Effexor XR) levothyroxine 175 mcg tablet 175 mcg PO DAILY #30 tabs 08/30/22 09/28/22 09/28/22 Rx liraglutide 0.6 mg/0.1 mL (18 mg/3 1.8 mg (0.3 mL) SUBCUT Q24H #9 mL 08/30/22 09/28/22 09/28/22 Rx mL) subcutaneous pen injector (BuzzSumotoza 3-Leonides) Allergies Allergy/AdvReac Type Severity Reaction Status Date / Time No Known Allergies Allergy Verified 09/28/22 12:44 PFSH Acute PFSH: Medical History Acquired lymphedema Acute diastolic heart failure Acute exacerbation of chronic obstructive airways disease Acute respiratory failure with hypercapnia Afib Allergic rhinitis due to pollen Anemia Anxiety Chronic atrial fibrillation with rapid ventricular response Chronic diastolic (congestive) heart failure Chronic kidney disease Chronic respiratory failure Congestive heart failure Diabetes mellitus with hyperglycemia, with long-term current use of insulin Elevated INR Essential (primary) hypertension GERD (gastroesophageal reflux disease) Hyperlipemia Hypothyroidism Hypoxia, sleep related Leukocytosis Morbid obesity with BMI of 50.0-59.9, adult MRSA infection NSTEMI (non-ST elevated myocardial infarction) Obesity hypoventilation syndrome EDGAR (obstructive sleep apnea) Pneumonia, unspecified organism Surgical History H/O esophagogastroduodenoscopy (02/18/21) History of bilateral cataract extraction 2019 and 2020 History of colonoscopy (02/18/21) History of gangrene Left buttocks requiring surgery May 2014 Family History Father Cancer Mother Heart disease CAD (coronary artery disease) Diabetes Heart attack Stroke Brother Heart attack Clotting disorder Stroke Sister Stroke Denies family history of Dementia Chronic kidney disease (CKD) Suicide Anesthesia complication Bleeding disorder Lung disease Social History Smoking and tobacco status: former smoker Quit status (tobacco): has quit using tobacco Year quit tobacco: 6 weeks ago Second hand smoke exposure: Yes Smoking risk assessment/counseling performed?: Yes Alcohol intake: former Year of sobriety/quit date alcohol: 1991 Desire information about alcohol rehabilitation?: No Counseling given: No Substance/Drug Use: never Desire information about substance/drug rehabilitation?: No Counseling given: No Adopted: No Caregiver/support person: No Lives independently: Yes Household members: spouse Housing: House Marital status: service: No Current occupational status: disabled Pets and animals: Yes Do you think of yourself as: Straight/Heterosexual Current gender identity: Male Vitals/I&O/Wt Last Vital Signs Temp 97.5 F L 09/28/22 16:48 Pulse 85 09/28/22 16:48 Resp 17 09/28/22 16:48 BP 137/62 09/28/22 16:48 Pulse Ox 92 09/28/22 16:48 O2 Del Method BiPAP 09/28/22 16:48 O2 Flow Rate 8 09/28/22 15:19 FiO2 40 09/28/22 15:05 Weight last 48 hrs Weight 171.004 kg Physical Exam Narrative: General: No acute distress, laying in bed on his right side with Bipap on HEENT: PERRLA, pupils bilaterally equal and reactive, pallors not present Chest: reduced breath sounds right inflaaxillary area, B/L LL rales CVS: S1-S2 regular, no murmurs, no tachycardia, no gallops, no rubs Abdomen: Soft, nontender, no organomegaly, bowel sounds present Neuro: No focal deficits, no facial deformity, AO x3, power 5/5 in all limbs Extremities: B/L LE pitting edema Data 09/28/22 11:50 09/28/22 11:50 Other Labs: 09/28/22 12:00 ABG pH 7.39 ABG pCO2 42.9 ABG pO2 76.6 L ABG HCO3 25.6 ABG O2 Saturation 96.1 ABG Base Excess 0.4 Other data: Radiology Impressions Chest X-Ray 09/28/22 11:46 IMPRESSION: 1. Cardiac enlargement with pulmonary vascular congestion and probable pulmonary edema suggesting acute CHF. Right basal pleural effusion. Laboratory Results WBC 14.8 10^3/uL (4.0-10.0) H 09/28/22 11:50 RBC 3.40 10^6/uL (4.1-5.3) L 09/28/22 11:50 Hgb 9.5 g/dL (11.7-16.6) L 09/28/22 11:50 Hct 32.2 % (42.0-52.0) L 09/28/22 11:50 MCV 94.7 fl (80-94) H 09/28/22 11:50 MCH 27.9 pg (28.0-34.0) L 09/28/22 11:50 MCHC 29.5 g/dL (30.0-36.0) L 09/28/22 11:50 RDW 15.4 % (12.1-15.1) H 09/28/22 11:50 Plt Count 301 10^3/cmm (130-400) 09/28/22 11:50 MPV 9.8 fL (7.4-10.4) 09/28/22 11:50 Neut % (Auto) 72.0 % 09/28/22 11:50 Lymph % (Auto) 16.2 % 09/28/22 11:50 [place] % (Auto) 7.0 % 09/28/22 11:50 Eos % (Auto) 3.4 % 09/28/22 11:50 Baso % (Auto) 0.9 % 09/28/22 11:50 Neut # (Auto) 10.63 10^3/uL (1.8-7.7) H 09/28/22 11:50 Lymph # (Auto) 2.4 10^3/uL (0.8-4.8) 09/28/22 11:50 [place] # (Auto) 1.0 10^3/uL (0.2-0.9) H 09/28/22 11:50 Eos # (Auto) 0.5 10^3/uL (0.0-0.8) 09/28/22 11:50 Baso # (Auto) 0.1 10^3/uL (0.0-0.1) 09/28/22 11:50 Nucleated RBC % (auto) 0 % 09/28/22 11:50 Nucleated RBCs # 0.0 /100WBC 09/28/22 11:50 Specimen Type Arterial 09/28/22 12:00 Sample Site Radial, right 09/28/22 12:00 ABG pH 7.39 (7.35-7.45) 09/28/22 12:00 ABG pCO2 42.9 mmHg (35-45) 09/28/22 12:00 ABG pO2 76.6 mmHg (80.0-100.0) L 09/28/22 12:00 ABG HCO3 25.6 mmol/L (22-26) 09/28/22 12:00 ABG O2 Saturation 96.1 09/28/22 12:00 ABG Base Excess 0.4 mmol/L (-2.0-2.0) 09/28/22 12:00 [place] Test Pos 09/28/22 12:00 A-a O2 Gradient 24.8 mmHg (5-10) H 09/28/22 12:00 Hematocrit 30.3 % (42-52) L 09/28/22 12:00 Hgb O2 Saturation 94.0 % (95-100) L 09/28/22 12:00 Carboxyhemoglobin 1.8 %THgb (0.4-20.1) 09/28/22 12:00 Methemoglobin 0.4 % (0.4-1.5) 09/28/22 12:00 Total Hemoglobin 9.9 g/dL (14-18) L 09/28/22 12:00 Sodium 144.0 mmol/L (131-143) H 09/28/22 12:00 Potassium 4.7 mmol/L (3.5-5.0) 09/28/22 12:00 Glucose 75.0 mg/dL (70-115) 09/28/22 12:00 Ionized Calcium 1.2 mmol/L (1.1-1.4) 09/28/22 12:00 O2 Delivery Device Bipap 09/28/22 12:00 FiO2 45.0 % 09/28/22 12:00 Food Safety Coordinator ID [id number] 09/28/22 12:00 Sodium 141 mmol/L (136-145) 09/28/22 11:50 Potassium 4.9 mmol/L (3.5-5.1) 09/28/22 11:50 Chloride 106 mmol/L (98-107) 09/28/22 11:50 Carbon Dioxide 25 mmol/L (22-29) 09/28/22 11:50 Anion Gap 14.9 (5-19) 09/28/22 11:50 BUN 17 mg/dL (8-23) 09/28/22 11:50 Creatinine 1.1 mg/dL (0.7-1.2) 09/28/22 11:50 GFR Calculation 67.8 mL/min (90-130) L 09/28/22 11:50 Glucose 72 mg/dL (65-115) 09/28/22 11:50 POC Glucose 110 mg/dL (70-110) 09/28/22 17:08 Calculated Osmolality 292 mOsm/kg (285-295) 09/28/22 11:50 Calcium 9.0 mg/dL (8.5-10.5) 09/28/22 11:50 Total Bilirubin 0.5 mg/dL (0.15-1.2) 09/28/22 11:50 AST 15 U/L (0-40) 09/28/22 11:50 ALT 8 U/L (0-41) 09/28/22 11:50 Alkaline Phosphatase 91 U/L (40-130) 09/28/22 11:50 Total Protein 7.2 g/dL (6.6-8.7) 09/28/22 11:50 Albumin 3.6 g/dL (3.5-5.2) 09/28/22 11:50 Globulin 3.6 g/dL (1.3-4.6) 09/28/22 11:50 A&P Assessment and plan (1) Acute on chronic respiratory failure: (2) Obesity hypoventilation syndrome: (3) CHF exacerbation: (4) Pulmonary edema: Plan 62M with chronic hypoxic respiratory failure typically on 5-6 lpm supplemental 02 coming in with 2 weeks of worsening shortness of breath, increased 02 requirements currently on Bipap Rales on auscultation B/L with LE edema Appears to be in CHF, diastolic HF , last echo Apr 2022 with preserved EF check BNP Bumex 2 mg IVP q12h monitor I/O , urine output continue Bipap, typically uses trelegy at home less likely COPD, no wheezing on auscultation check troponin series and EKG check resp viral panel Attestations Medical Necessity Statement*: > 2 midnight admission is anticipated for CHF exacerbation, needs iv diuresis Coding Level of Care Code Acute Code for Chg Fwd Moderate MDM includes number and complexity of problems actively addressed during encounter, amount and/or complexity of data reviewed/ordered and described risk of complication, morbidity or mortality of management as documented Diagnoses Acute on chronic respiratory failure J96.20 Obesity hypoventilation syndrome E66.2 CHF exacerbation I50.9 Pulmonary edema J81.1
[2022-09-28 17:11] LABS: Glucose Point of Care 110 mg/dL (70-110)
[2022-09-28 17:45] LABS: Troponin(5th) Baseline 60 ng/L (0-15)
[2022-09-28 17:59] LABS: NT Pro B Type Natriuretic Pept 1942 pg/mL (0-125)
--- NOTE | 2022-09-28 18:01 | ECG_ITS ---
[facility] Test Date: 2022-09-28 Pat Name: Julius Dunlap Department: Room: 256 Gender: Male Face Cleaner: : 1960 Requested By: Jenniffer Acevedo Order Number: [id number] Reading MD: Shelby Jones M.D. Measurements Intervals [place] Rate: 94 P: 0 CA: 0 QRS: 50 QRSD: 113 T: 120 QT: 320 QTc: 400 Interpretive Statements ATRIAL FIBRILLATION MODERATE INTRAVENTRICULAR CONDUCTION DELAY [110+ ms QRS DURATION] NONSPECIFIC T-WAVE ABNORMALITY Compared to ECG 09/28/2022 11:53:37 Prolonged QT interval no longer present T-wave abnormality still present Electronically Signed On 09-28-2022 19:23:20 CDT by Shelby Jones M.D. [email or web address] specialty hospital of greenvilleNuPathecincinnati [email or web address].[email or web address]/store/[id number]
[2022-09-28] MEDS: BuSPIRONE 10 mg Tablet 15 MG PO (18:24)
[2022-09-28 19:35] LABS: Troponin 5 2HR 61.95 ng/L (0-15)
[2022-09-28 19:36] LABS: Troponin 5 2HR Delta 1.95 ABS# (0-10)
[2022-09-28 21:02] LABS: Adenovirus Not Detected (NOT DETECT); Chlamydia Pneumoniae Not Detected (NOT DETECT); Coronavirus 229E,HKU1,NL63,OC4 Not Detected (NOT DETECT); Human Metapneumovirus Not Detected (NOT DETECT); Human Rhinovirus/Enterovirus Not Detected (NOT DETECT); Influenza A Not Detected (NOT DETECT); Influenza A H1 Not Detected (NOT DETECT); Influenza A H1-2009 Not Detected (NOT DETECT); Influenza A H3 Not Detected (NOT DETECT); Influenza B Not Detected (NOT DETECT); Mycoplasma Pneumoniae Not Detected (NOT DETECT); Parainfluenza Virus Type 1 Not Detected (NOT DETECT); Parainfluenza Virus Type 2 Not Detected (NOT DETECT); Parainfluenza Virus Type 3 Not Detected (NOT DETECT); Parainfluenza Virus Type 4 Not Detected (NOT DETECT); Respiratory Syncytial Virus A Not Detected (NOT DETECT); Respiratory Syncytial Virus B Not Detected (NOT DETECT); SARS-COV-2 Not Detected (NOT DETECT)
--- NOTE | 2022-09-28 21:13 | ECG_ITS ---
[facility] Test Date: 2022-09-28 Pat Name: Julius Dunlap Department: Room: 256 Gender: Male Rn Cvor: : 1960 Requested By: Jenniffer Acevedo Order Number: [id number] Ana Lilia MD: Shelby Joens M.D. Measurements Intervals [place] Rate: 83 P: 0 GA: 0 QRS: 89 QRSD: 114 T: 88 QT: 300 QTc: 354 Interpretive Statements ATRIAL FIBRILLATION MODERATE INTRAVENTRICULAR CONDUCTION DELAY [105+ ms QRS DURATION, 80+ ms Q/S IN V1/V2, NO Q AND 60+ ms R IN I/aVL/V5/V6] NONSPECIFIC T-WAVE ABNORMALITY Compared to ECG 09/28/2022 18:01:29 No significant changes Electronically Signed On 09-29-2022 11:32:38 CDT by Shelby Jones M.D. [id number]
[2022-09-28] MEDS: fenofibrate 145 mg Tablet PO (21:18)
[2022-09-28] MEDS: hyDRALAzine 50 mg Tablet 100 MG PO (21:19)
[2022-09-28] MEDS: insulin lispro 100 unit/1 mL SUBCUT (21:19)
[2022-09-28] MEDS: trazodone 100 mg Tablet PO (21:19)
[2022-09-28 21:20] LABS: Glucose Point of Care 152 mg/dL (70-110)
[2022-09-28] MEDS: ipratropium-albuterol 3 mL Neb INHALATION (21:22)
[2022-09-28] MEDS: bumetanide 0.25 mg/mL SDV 10 mL 2 MG IVP (23:05)
[2022-09-28 23:31] LABS: Troponin 5 6HR 50.96 ng/L (0-15)
[2022-09-28 23:33] LABS: Troponin 5 6HR Delta -9.04 ng/L (0-12)
[2022-09-29] VITALS (16 sets, daily range): BP systolic 100–143; BP diastolic 53–68; PULSE 73–85; RESP 18–26; TEMP 36.3–36.6; O2SAT 86–100
[2022-09-29] MEDS: ipratropium-albuterol 3 mL Neb INHALATION ×4 (03:24→20:00)
[2022-09-29 04:54] LABS: Basophils % 0.2 %; Eosinophils % 0.1 %; Hematocrit 28.7 % (42.0-52.0); Hemoglobin 8.7 g/dL (11.7-16.6); Lymphocytes # 1.2 10^3/uL (0.8-4.8); Lymphocytes % 9.6 %; Mean Corpuscular HGB Conc 30.3 g/dL (30.0-36.0); Mean Corpuscular Hemoglobin 28.8 pg (28.0-34.0); Mean Platelet Volume 10.1 fL (7.4-10.4); Monocytes # 0.4 10^3/uL (0.2-0.9); Monocytes % 3.7 %; Neutrophils # 10.33 10^3/uL (1.8-7.7); Neutrophils % 85.7 %; Nucleated Red Blood Cells % 0 %; Platelet Count 267 10^3/cmm (130-400); Red Blood Count 3.02 10^6/uL (4.1-5.3); Red Cell Distribution Width 15.4 % (12.1-15.1)
[2022-09-29 05:12] LABS: Alanine Aminotransferase 6 U/L (0-41); Albumin Level 3.3 g/dL (3.5-5.2); Alkaline Phosphatase 100 U/L (40-130); Anion Gap 15.8 (5-19); Aspartate Amino Transferase 15 U/L (0-40); Blood Urea Nitrogen 24 mg/dL (8-23); Calcium 8.9 mg/dL (8.5-10.5); Carbon Dioxide 24 mmol/L (22-29); Chloride 107 mmol/L (98-107); Globulin 3.4 g/dL (1.3-4.6); Glomerular Filtration Rate 55.9 mL/min (90-130); Glucose 138 mg/dL (65-115); Osmolality Calculated 300 mOsm/kg (285-295); Potassium 4.8 mmol/L (3.5-5.1); Sodium 142 mmol/L (136-145); Total Bilirubin 0.3 mg/dL (0.15-1.2); Total Protein 6.7 g/dL (6.6-8.7)
[2022-09-29] MEDS: venlafaxine ER (24HR) 150 mg Capsule PO (06:09)
[2022-09-29 06:43] LABS: Glucose Point of Care 139 mg/dL (70-110)
[2022-09-29] MEDS: atorvastatin 40 mg Tablet 80 MG PO (08:40)
[2022-09-29] MEDS: hyDRALAzine 50 mg Tablet 100 MG PO ×3 (08:41→21:24)
[2022-09-29] MEDS: levothyroxine 175 mcg Tablet PO (08:41)
[2022-09-29] MEDS: BuSPIRONE 10 mg Tablet 15 MG PO ×2 (08:42→17:39)
[2022-09-29] MEDS: rivaroxaban 10 mg Tablet 20 MG PO (08:42)
[2022-09-29] MEDS: pantoprazole DR 40 mg Tablet PO (08:42)
[2022-09-29] MEDS: amiodarone 200 mg Tablet PO (08:43)
[2022-09-29] MEDS: nystatin powder 15 gm Btl 1 APPLIC TOPICAL ×2 (08:43→17:41)
[2022-09-29] MEDS: amlodipine 10 mg Tablet PO (08:43)
[2022-09-29 11:12] LABS: Glucose Point of Care 208 mg/dL (70-110)
[2022-09-29] MEDS: bumetanide 0.25 mg/mL SDV 10 mL 2 MG IVP (11:16)
[2022-09-29] MEDS: insulin lispro 100 unit/1 mL SUBCUT ×3 (11:37→21:24)
[2022-09-29 16:19] LABS: Glucose Point of Care 157 mg/dL (70-110)
--- NOTE | 2022-09-29 16:37 | PM.PN ---
Subjective Subjective: no new complaints today, continues to be on BiPAP, takes it off during ED taking. Creatinine stable at 1.3, net -700 cc. Medications: Reviewed: Yes Vitals/I&O/Wt Last Vital Signs Temp 97.8 F 09/29/22 15:14 Pulse 82 09/29/22 15:14 Resp 20 H 09/29/22 15:14 BP 136/65 09/29/22 15:14 Pulse Ox 94 09/29/22 15:14 O2 Del Method Nasal Cannula 09/29/22 15:14 O2 Flow Rate 6 09/29/22 08:47 FiO2 40 09/29/22 13:20 09/29/22 09/29/22 09/29/22 06:59 14:59 22:59 Intake Total 960 / 960 Output Total 750 / 1250 Balance -750 / -770 960 / 960 Weight last 48 hrs Weight 171.004 kg Physical Exam Narrative: General: No acute distress, laying in bed on his right side with Bipap on HEENT: PERRLA, pupils bilaterally equal and reactive, pallors not present Chest: reduced breath sounds right inflaaxillary area, B/L LL rales CVS: S1-S2 regular, no murmurs, no tachycardia, no gallops, no rubs Abdomen: Soft, nontender, no organomegaly, bowel sounds present Neuro: No focal deficits, no facial deformity, AO x3, power 5/5 in all limbs Extremities: B/L LE pitting edema Urinary Catheter Management: Jiménez: Cath Placed During This Visit: yes Reason for Continuing Indwelling Catheter: Acute Urinary Retention or Obstruction Urinary Catheter Date of Insertion: 09/28/22 Urinary Catheter Time of Insertion: 18:51 Data 09/29/22 04:12 09/29/22 04:12 A&P Assessment and plan (1) Acute on chronic respiratory failure: (2) Obesity hypoventilation syndrome: (3) CHF exacerbation: (4) Pulmonary edema: Plan 62M with chronic hypoxic respiratory failure typically on 5-6 lpm supplemental 02 coming in with 2 weeks of worsening shortness of breath, increased 02 requirements currently on Bipap. Rales on auscultation B/L with LE edema Appears to be in CHF, diastolic HF , last echo Apr 2022 with preserved EF Continue Bumex 2 mg IVP q12h net negative 700 cc thus far elevated BNP 1941 monitor I/O , urine output continue Bipap at night team, typically uses trelegy at home attempt to wean off bipap less likely COPD, no wheezing on auscultation troponin 60--> 61---> 50 negative respiratory viral panel Attestations Medical Necessity Statement*: continued iv diuresis , wean off bipap Coding Level of Care Code Acute Code for Chg Fwd Diagnoses Acute on chronic respiratory failure J96.20 Obesity hypoventilation syndrome E66.2 CHF exacerbation I50.9 Pulmonary edema J81.1
[2022-09-29 21:15] LABS: Glucose Point of Care 166 mg/dL (70-110)
[2022-09-29] MEDS: fenofibrate 145 mg Tablet PO (21:24)
[2022-09-29] MEDS: trazodone 100 mg Tablet PO (21:24)
[2022-09-30] VITALS (14 sets, daily range): BP systolic 118–165; BP diastolic 58–90; PULSE 73–85; RESP 18–25; TEMP 36.4–36.7; O2SAT 90–95
[2022-09-30] MEDS: bumetanide 0.25 mg/mL SDV 10 mL 2 MG IVP ×2 (00:17→11:27)
[2022-09-30] MEDS: ipratropium-albuterol 3 mL Neb INHALATION ×4 (01:03→19:19)
[2022-09-30] MEDS: venlafaxine ER (24HR) 150 mg Capsule PO (05:59)
[2022-09-30 07:10] LABS: Glucose Point of Care 102 mg/dL (70-110)
[2022-09-30] MEDS: amiodarone 200 mg Tablet PO (08:54)
[2022-09-30] MEDS: hyDRALAzine 50 mg Tablet 100 MG PO ×3 (08:54→21:38)
[2022-09-30] MEDS: atorvastatin 40 mg Tablet 80 MG PO (08:54)
[2022-09-30] MEDS: rivaroxaban 10 mg Tablet 20 MG PO (08:55)
[2022-09-30] MEDS: pantoprazole DR 40 mg Tablet PO (08:55)
[2022-09-30] MEDS: amlodipine 10 mg Tablet PO (08:55)
[2022-09-30] MEDS: BuSPIRONE 10 mg Tablet 15 MG PO ×2 (08:55→17:28)
[2022-09-30] MEDS: levothyroxine 175 mcg Tablet PO (08:55)
[2022-09-30] MEDS: nystatin powder 15 gm Btl 1 APPLIC TOPICAL ×2 (09:08→17:29)
[2022-09-30 11:22] LABS: Glucose Point of Care 130 mg/dL (70-110)
--- NOTE | 2022-09-30 14:58 | PM.PN ---
Subjective Subjective: feels better today. At rest he is on 6lpm which is his home requiement. Sitting at side of bed, feels much better. With minimal exertion (sit, stand at edge of bed) he desaturates down to 70%. LE edema stable to improving Medications: Reviewed: Yes Vitals/I&O/Wt Last Vital Signs Temp 98.1 F 09/30/22 11:38 Pulse 84 09/30/22 14:19 Resp 18 09/30/22 14:19 BP 134/69 09/30/22 11:38 Pulse Ox 92 09/30/22 14:19 O2 Del Method Nasal Cannula 09/30/22 14:19 O2 Flow Rate 6 09/30/22 14:19 FiO2 40 09/30/22 07:53 09/29/22 09/30/22 09/30/22 22:59 06:59 14:59 Intake Total 480 / 1440 720 / 720 Output Total 2700 / 2700 Balance 480 / 1440 -2700 / -1260 720 / 720 Physical Exam Narrative: General: No acute distress, laying in bed on his right side with Bipap on HEENT: PERRLA, pupils bilaterally equal and reactive, pallors not present Chest: clear to auscultation CVS: S1-S2 regular, no murmurs, no tachycardia, no gallops, no rubs Abdomen: Soft, nontender, no organomegaly, bowel sounds present Neuro: No focal deficits, no facial deformity, AO x3, power 5/5 in all limbs Extremities: B/L LE pitting edema , stable to improving, stasis dermatitis + Urinary Catheter Management: Vinson: Cath Placed During This Visit: yes Reason for Continuing Indwelling Catheter: Other Urinary Catheter Date of Insertion: 09/28/22 Urinary Catheter Time of Insertion: 18:51 Data 09/29/22 04:12 09/29/22 04:12 A&P Assessment and plan (1) Acute on chronic respiratory failure: (2) Obesity hypoventilation syndrome: (3) CHF exacerbation: (4) Pulmonary edema: Plan 62M with chronic hypoxic respiratory failure typically on 5-6 lpm supplemental 02 coming in with 2 weeks of worsening shortness of breath, increased 02 requirements. weaned off Bipap during day time Rales improved, reduced air entry RLL Start spirometry Appears to be in acute on chronic CHF, diastolic HF , last echo Apr 2022 with preserved EF Change Bumex 2 mg IVP q12h to BUmex 2 mg po BID D/c Vinson net negative 1700 cc over last 24 hrs elevated BNP 1941 monitor I/O , urine output less likely COPD, no wheezing on auscultation troponin 60--> 61---> 50 , not concerning for ACS. no changes on EKG, elevated likely 2/2 CHF exacerbation negative respiratory viral panel Attestations Medical Necessity Statement*: change iv to po diuretics, d/c vinson, anticipate discharge in the upcoming 24 hours if does well with transition from IV to p.o. Coding Level of Care Code Acute Code for Chg Fwd Diagnoses Acute on chronic respiratory failure J96.20 Obesity hypoventilation syndrome E66.2 CHF exacerbation I50.9 Pulmonary edema J81.1
[2022-09-30 16:39] LABS: Glucose Point of Care 188 mg/dL (70-110)
[2022-09-30] MEDS: bumetanide 1 mg Tablet 2 MG PO (17:28)
[2022-09-30] MEDS: insulin lispro 100 unit/1 mL SUBCUT (17:28)
[2022-09-30] MEDS: NON-FORMULARY MEDICATION (Colesevelam [Welchol] 625 mg tablet) 1875 EACH PO (17:42)
[2022-09-30 21:10] LABS: Glucose Point of Care 121 mg/dL (70-110)
[2022-09-30] MEDS: fenofibrate 145 mg Tablet PO (21:37)
[2022-09-30] MEDS: trazodone 100 mg Tablet PO (21:38)
[2022-10-01] VITALS (7 sets, daily range): BP systolic 121–138; BP diastolic 57–68; PULSE 71–87; RESP 18–22; TEMP 36.4–36.5; O2SAT 83–96
[2022-10-01] MEDS: ipratropium-albuterol 3 mL Neb INHALATION ×2 (02:08→08:10)
[2022-10-01 04:00] LABS: Basophils # 0.1 10^3/uL (0.0-0.1); Basophils % 0.7 %; Eosinophils # 0.4 10^3/uL (0.0-0.8); Eosinophils % 3.2 %; Hematocrit 28.1 % (42.0-52.0); Hemoglobin 8.3 g/dL (11.7-16.6); Lymphocytes # 2.5 10^3/uL (0.8-4.8); Lymphocytes % 22.4 %; Mean Corpuscular HGB Conc 29.5 g/dL (30.0-36.0); Mean Corpuscular Hemoglobin 27.5 pg (28.0-34.0); Mean Platelet Volume 9.5 fL (7.4-10.4); Monocytes # 0.9 10^3/uL (0.2-0.9); Monocytes % 8.2 %; Neutrophils # 7.23 10^3/uL (1.8-7.7); Neutrophils % 65.1 %; Nucleated Red Blood Cells % 0 %; Platelet Count 278 10^3/cmm (130-400); Red Blood Count 3.02 10^6/uL (4.1-5.3); Red Cell Distribution Width 15.2 % (12.1-15.1); White Blood Count 11.1 10^3/uL (4.0-10.0)
[2022-10-01 04:16] LABS: Alanine Aminotransferase 13 U/L (0-41); Albumin Level 3.3 g/dL (3.5-5.2); Alkaline Phosphatase 87 U/L (40-130); Anion Gap 11.9 (5-19); Aspartate Amino Transferase 36 U/L (0-40); Blood Urea Nitrogen 30 mg/dL (8-23); Calcium 8.7 mg/dL (8.5-10.5); Carbon Dioxide 30 mmol/L (22-29); Chloride 104 mmol/L (98-107); Globulin 3.1 g/dL (1.3-4.6); Glomerular Filtration Rate 47.4 mL/min (90-130); Glucose 107 mg/dL (65-115); Osmolality Calculated 301 mOsm/kg (285-295); Potassium 3.9 mmol/L (3.5-5.1); Sodium 142 mmol/L (136-145); Total Bilirubin 0.3 mg/dL (0.15-1.2); Total Protein 6.4 g/dL (6.6-8.7)
[2022-10-01] MEDS: venlafaxine ER (24HR) 150 mg Capsule PO (05:56)
[2022-10-01 06:48] LABS: Glucose Point of Care 111 mg/dL (70-110)
--- NOTE | 2022-10-01 09:03 | PC.RESP ---
O2 sat Pt walked with physical therapy and respiratory therapy. Pt had desat to 77% on 6 lpm. Pt sat down to rest. RT increased o2 to 8 lpm. O2 sat only improved to 84%. O2 increased to 10 lpm. Pt sat improved to 92%. Pt walked back to bed. Pt sat dropped to 84% but recovered quickly to 92% with rest.
--- NOTE | 2022-10-01 09:35 | PC.SOCIAL ---
IMM Update pg 2 of IMM updated and reviewed w/ patient. Copy provided and Copy dated, initialed and placed in chart.
[2022-10-01] MEDS: amlodipine 10 mg Tablet PO (09:37)
[2022-10-01] MEDS: levothyroxine 175 mcg Tablet PO (09:37)
[2022-10-01] MEDS: atorvastatin 40 mg Tablet 80 MG PO (09:37)
[2022-10-01] MEDS: bumetanide 1 mg Tablet 2 MG PO (09:38)
[2022-10-01] MEDS: hyDRALAzine 50 mg Tablet 100 MG PO ×2 (09:38→14:24)
[2022-10-01] MEDS: pantoprazole DR 40 mg Tablet PO (09:39)
[2022-10-01] MEDS: rivaroxaban 10 mg Tablet 20 MG PO (09:39)
[2022-10-01] MEDS: BuSPIRONE 10 mg Tablet 15 MG PO (09:40)
[2022-10-01] MEDS: amiodarone 200 mg Tablet PO (09:41)
[2022-10-01] MEDS: nystatin powder 15 gm Btl 1 APPLIC TOPICAL (09:42)
[2022-10-01 11:15] LABS: Glucose Point of Care 183 mg/dL (70-110)
[2022-10-01] MEDS: insulin lispro 100 unit/1 mL SUBCUT (11:16)
--- NOTE | 2022-10-01 15:06 | P.DS_ITS ---
Discharge Providers Date of Admission: 09/28/22 14:23 Date of Discharge: October 01, 2022 Attending Provider at Admission: Jenniffer Acevedo MD Attending Provider at Discharge: Jenniffer Acevedo MD Primary Care Provider: YONATHAN Samuel Diagnoses at Discharge Discharge Diagnosis (1) Acute on chronic respiratory failure: Status: Acute (2) Obesity hypoventilation syndrome: Status: Acute (3) CHF exacerbation: Status: Acute (4) Pulmonary edema: Status: Acute Reason for Visit Reason for Visit: SOB Hospital Course Hospital Course Julius Dunlap is a 62 year old male with a past medical history of smoking, small airway disease, severe obesity hypoventilation syndrome,chronic respiratory failure, on home trilogy machine, diastolic CHF, chronically on 5 to 6 L, insulin-dependent type 2 diabetes mellitus, morbid obesity, GERD, hyperlipidemia and hypothyroidism, EDGAR, CKD, who has been hospitalized multiple times this year for diastolic CHF exacerbation. He presented with 2 weeks of worsening dyspnea. worse with exertion. He has been needing 10lpm at home. No cough, chest pain, palpitations, recent URI symptoms. CXR with B/L infiltrates and cardiomegaly . he was placed on a Bipap upon arrival due to resp distress. His clinical picture was compatible with that of acute on chronic diastolic heart failure. Last echocardiogram in April 2022 had shown a preserved ejection fraction. He received diuresis with Bumex 2 mg IV every 12 hours. He diuresed, overall net -2 L. He was able to be weaned off BiPAP. At rest he is back to 6 L/min, with exertion he is needing up to 10 L/min supplemental O2. He feels much improved. Air entry is better, Rales have resolved. He is being discharged in an improved condition back to home with home health. He has a follow-up appointment with pulmonology on October 04. recommend also to follow up with cardiology in one week. Incidentally FOBT returned positive, Hb remained s table for chronic anemia, no active bleeding. NO davis. Xarelto continued currently- please follow up with cardiology. Physical Exam Narrative: General: No acute distress, AO x3 HEENT: PERRLA, pupils bilaterally equal and reactive, pallors not present Chest: Normal vesicular breath sounds, no added sounds, equal good air entry bilaterally CVS: S1-S2 regular, no murmurs, no tachycardia, no gallops, no rubs Abdomen: Soft, nontender, no organomegaly, bowel sounds present Neuro: No focal deficits, no facial deformity, AO x3, power 5/5 in all limbs Extremities: chronic stasis dermatitis and LE edema Urinary Catheter Management: Jiménez: Cath Placed During This Visit: yes, but has since been removed by the nurse Reason for Continuing Indwelling Catheter: Other Urinary Catheter Date of Insertion: 09/28/22 Urinary Catheter Time of Insertion: 18:51 Date Urinary Catheter Removed: 09/30/22 Time Urinary Catheter Discontinued: 14:20 Discharge Data Studies Completed and Pending Completed Studies During Hospitalization Category Date Time Status XR chest 1V portable [id number] Stat Exams 09/28/22 11:46 Completed Radiology Impressions Chest X-Ray 09/28/22 11:46 IMPRESSION: 1. Cardiac enlargement with pulmonary vascular congestion and probable pulmonary edema suggesting acute CHF. Right basal pleural effusion. Laboratory Results WBC 11.1 10^3/uL (4.0-10.0) H 10/01/22 03:20 RBC 3.02 10^6/uL (4.1-5.3) L 10/01/22 03:20 Hgb 8.3 g/dL (11.7-16.6) L 10/01/22 03:20 Hct 28.1 % (42.0-52.0) L 10/01/22 03:20 MCV 93.0 fl (80-94) 10/01/22 03:20 MCH 27.5 pg (28.0-34.0) L 10/01/22 03:20 MCHC 29.5 g/dL (30.0-36.0) L 10/01/22 03:20 RDW 15.2 % (12.1-15.1) H 10/01/22 03:20 Plt Count 278 10^3/cmm (130-400) 10/01/22 03:20 MPV 9.5 fL (7.4-10.4) 10/01/22 03:20 Neut % (Auto) 65.1 % 10/01/22 03:20 Lymph % (Auto) 22.4 % 10/01/22 03:20 [place] % (Auto) 8.2 % 10/01/22 03:20 Eos % (Auto) 3.2 % 10/01/22 03:20 Baso % (Auto) 0.7 % 10/01/22 03:20 Neut # (Auto) 7.23 10^3/uL (1.8-7.7) 10/01/22 03:20 Lymph # (Auto) 2.5 10^3/uL (0.8-4.8) 10/01/22 03:20 [place] # (Auto) 0.9 10^3/uL (0.2-0.9) 10/01/22 03:20 Eos # (Auto) 0.4 10^3/uL (0.0-0.8) 10/01/22 03:20 Baso # (Auto) 0.1 10^3/uL (0.0-0.1) 10/01/22 03:20 Nucleated RBC % (auto) 0 % 10/01/22 03:20 Nucleated RBCs # 0.0 /100WBC 10/01/22 03:20 Specimen Type Arterial 09/28/22 12:00 Sample Site Radial, right 09/28/22 12:00 ABG pH 7.39 (7.35-7.45) 09/28/22 12:00 ABG pCO2 42.9 mmHg (35-45) 09/28/22 12:00 ABG pO2 76.6 mmHg (80.0-100.0) L 09/28/22 12:00 ABG HCO3 25.6 mmol/L (22-26) 09/28/22 12:00 ABG O2 Saturation 96.1 09/28/22 12:00 ABG Base Excess 0.4 mmol/L (-2.0-2.0) 09/28/22 12:00 Avila Test Pos 09/28/22 12:00 A-a O2 Gradient 24.8 mmHg (5-10) H 09/28/22 12:00 Hematocrit 30.3 % (42-52) L 09/28/22 12:00 Hgb O2 Saturation 94.0 % (95-100) L 09/28/22 12:00 Carboxyhemoglobin 1.8 %THgb (0.4-20.1) 09/28/22 12:00 Methemoglobin 0.4 % (0.4-1.5) 09/28/22 12:00 Total Hemoglobin 9.9 g/dL (14-18) L 09/28/22 12:00 Sodium 144.0 mmol/L (131-143) H 09/28/22 12:00 Potassium 4.7 mmol/L (3.5-5.0) 09/28/22 12:00 Glucose 75.0 mg/dL (70-115) 09/28/22 12:00 Ionized Calcium 1.2 mmol/L (1.1-1.4) 09/28/22 12:00 O2 Delivery Device Bipap 09/28/22 12:00 FiO2 45.0 % 09/28/22 12:00 Contact Lens Lathe Operator ID glc 09/28/22 12:00 Sodium 142 mmol/L (136-145) 10/01/22 03:20 Potassium 3.9 mmol/L (3.5-5.1) 10/01/22 03:20 Chloride 104 mmol/L (98-107) 10/01/22 03:20 Carbon Dioxide 30 mmol/L (22-29) H 10/01/22 03:20 Anion Gap 11.9 (5-19) 10/01/22 03:20 BUN 30 mg/dL (8-23) H 10/01/22 03:20 Creatinine 1.5 mg/dL (0.7-1.2) H 10/01/22 03:20 GFR Calculation 47.4 mL/min (90-130) L 10/01/22 03:20 Glucose 107 mg/dL (65-115) 10/01/22 03:20 POC Glucose 183 mg/dL (70-110) H 10/01/22 11:11 Calculated Osmolality 301 mOsm/kg (285-295) H 10/01/22 03:20 Calcium 8.7 mg/dL (8.5-10.5) 10/01/22 03:20 Total Bilirubin 0.3 mg/dL (0.15-1.2) 10/01/22 03:20 AST 36 U/L (0-40) 10/01/22 03:20 ALT 13 U/L (0-41) 10/01/22 03:20 Alkaline Phosphatase 87 U/L (40-130) 10/01/22 03:20 Troponin T Baseline 60 ng/L (0-15) H 09/28/22 17:15 Troponin T 120 Minute 61.95 ng/L (0-15) H 09/28/22 19:05 Delta Troponin T 1.95 ABS# (0-10) 09/28/22 19:05 Troponin T Hi Sens 6Hr 50.96 ng/L (0-15) H 09/28/22 23:05 Troponin T Hi Sens 6Hr Delta -9.04 ng/L (0-12) L 09/28/22 23:05 NT-Pro-B Natriuret Pep 1942 pg/mL (0-125) H 09/28/22 17:15 Total Protein 6.4 g/dL (6.6-8.7) L 10/01/22 03:20 Albumin 3.3 g/dL (3.5-5.2) L 10/01/22 03:20 Globulin 3.1 g/dL (1.3-4.6) 10/01/22 03:20 Nasal Influ A H1 2008 PCR Not detected (NOT DETECT) 09/28/22 18:50 Adenovirus (PCR) Not detected (NOT DETECT) 09/28/22 18:50 C. pneumoniae DNA (PCR) Not detected (NOT DETECT) 09/28/22 18:50 Coronavirus 229E (PCR) Not detected (NOT DETECT) 09/28/22 18:50 Human Metapneumovir PCR Not detected (NOT DETECT) 09/28/22 18:50 Influenza A (H1) PCR Not detected (NOT DETECT) 09/28/22 18:50 Influenza A (H3) PCR Not detected (NOT DETECT) 09/28/22 18:50 Influenza Type A (PCR) Not detected (NOT DETECT) 09/28/22 18:50 Influenza Type B (PCR) Not detected (NOT DETECT) 09/28/22 18:50 M. pneumoniae (PCR) Not detected (NOT DETECT) 09/28/22 18:50 Parainfluenza 1 (PCR) Not detected (NOT DETECT) 09/28/22 18:50 Parainfluenza 2 (PCR) Not detected (NOT DETECT) 09/28/22 18:50 Parainfluenza 3 (PCR) Not detected (NOT DETECT) 09/28/22 18:50 Parainfluenza 4 (PCR) Not detected (NOT DETECT) 09/28/22 18:50 RSV Type A (PCR) Not detected (NOT DETECT) 09/28/22 18:50 RSV Type B (PCR) Not detected (NOT DETECT) 09/28/22 18:50 Entero/Rhino (PCR) Not detected (NOT DETECT) 09/28/22 18:50 SARS-CoV-2 (PCR) Not detected (NOT DETECT) 09/28/22 18:50 Vitals Last Vital Signs Temp 97.5 F L 10/01/22 13:44 Pulse 84 10/01/22 13:44 Resp 20 H 10/01/22 13:44 BP 138/68 10/01/22 13:44 Pulse Ox 96 10/01/22 13:44 O2 Del Method Nasal Cannula 10/01/22 12:00 O2 Flow Rate 10 10/01/22 09:43 FiO2 40 10/01/22 02:08 Discharge Plan Discharge Patient Disposition: Home Health Service Condition: Stable Prescriptions: New pantoprazole 40 mg Tablet,Delayed Release (Dr/Ec) 40 mg PO DAILY 30 Days Qty: 60 0RF Continued (DME) UnboundStyle Jeremy 2 Sensor Kit See Rx Instructions .Route Qty: 1 0RF Rx Instructions: As directed (DME) FreeStyle Jeremy 2 [place] Misc See Rx Instructions .Route Qty: 1 0RF Rx Instructions: As directed ipratropium-albuterol 0.5 mg-3 mg(2.5 mg base)/3 mL solution for nebulization 3 ml INHALATION BID PRN (Reason: Shortness Of Breath) Tresiba FlexTouch U-100 100 unit/mL (3 mL) insulin pen See Rx Instructions SUBCUT DAILY Qty: 50 2RF Rx Instructions: 35 units subcutaneously daily buspirone 15 mg tablet 15 mg PO BID Qty: 60 2RF cetirizine 10 mg tablet 10 mg PO DAILY Qty: 30 2RF montelukast [Singulair] 10 mg tablet 10 mg PO DAILY Qty: 30 2RF rosuvastatin 20 mg tablet 20 mg PO DAILY Qty: 30 2RF trazodone 100 mg tablet 100 mg PO BEDTIME Qty: 30 2RF Anoro Ellipta 62.5-25 mcg/actuation blister with device 1 inh inhalation Q24H Qty: 60 2RF venlafaxine [Effexor XR] 150 mg capsule,extended release 24hr 150 mg PO QAM Qty: 30 2RF amlodipine 10 mg tablet 10 mg PO DAILY Qty: 90 3RF Rx Instructions: Must be seen for further refills colesevelam [WelChol] 625 mg tablet 1,875 mg PO BID Qty: 540 3RF hydralazine 100 mg tablet 100 mg PO TID Qty: 270 3RF potassium chloride 20 mEq tablet extended release 20 meq PO BID Qty: 180 3RF Hold Instructions: Resume on 04/15/22. (DME) pen needle, diabetic [TechLITE Pen Needle] 31 gauge x 5/16 needle See Rx Instructions .ROUTE .MEDSUPPLY Qty: 100 5RF Rx Instructions: Three times a day Xarelto 20 mg tablet 20 mg PO DAILY Qty: 90 3RF Rx Instructions: must administer with a meal/food amiodarone 200 mg tablet 200 mg PO DAILY Qty: 90 3RF levothyroxine 175 mcg tablet 175 mcg PO DAILY Qty: 30 2RF Victoza 3-Leonides 0.6 mg/0.1 mL (18 mg/3 mL) pen injector 1.8 mg SUBCUT Q24H Qty: 9 2RF metformin 500 mg tablet extended release 24 hr 1,000 mg PO BID cyanocobalamin (vitamin B-12) [Vitamin B-12] 1,000 mcg Tablet 500 mcg PO DAILY Qty: 30 0RF fenofibrate nanocrystallized 145 mg tablet 145 mg PO BEDTIME ascorbic acid (vitamin C) 500 mg tablet 500 mg PO DAILY Qty: 30 0RF mupirocin 2 % ointment 1 applic topical BID Qty: 22 0RF Changed bumetanide 1 mg Tablet 2 mg PO BID 30 Days Qty: 60 0RF Discharge Orders: Discharge Order (Routine); Ordered 10/01/22 Ordered By: Jenniffer Acevedo Other Ambulatory Orders: DME: Oxygen (Order) Location: None Selected Ordered By: Jenniffer Acevedo Referrals: State In Home Service Set Up [Other] (IF interested in In Home Services this is the number you will need to call to have it set up.) [facility] ([facility]) [Outside] Jeremiah Griffin FNP-C [Primary Care Provider] - 7-10 days (Please call [phone] to set up a follow-up appointment to see your PCP. ) Adelaida Argueta FNP [Nurse Practitioner] - 1 week (Please call [phone] to set up an appointment to see Adelaida Argueta at [facility]. ) Discharge Diet: Usual diet Discharge Activity: Resume usual activity Patient Instructions: Pantoprazole (By mouth), Heart Failure (DC), Pulmonary Edema (DC), Opioid Safety Discharge Attestations Time Spent in Discharge Care*: greater than 30 min Status at Discharge: Cognitive status at discharge: cognitively intact , Behavioral status at discharge: cooperative , Quality Metrics Clinical Quality Measures [ No reported AMI, CVA or VTE this stay] Coding Level of Care Code Acute Code for Chg Fwd Diagnoses Acute on chronic respiratory failure J96.20 Obesity hypoventilation syndrome E66.2 CHF exacerbation I50.9 Pulmonary edema J81.1
== END 2022-10-01 14:40 | disposition home health service (06) | DRG 291 ==
LOC: ER 13:56 → MEDSURG 14:06
PROVIDERS: Admitting Provider Student in an Organized Health Care Education/Training Program; Emergency Provider Family Medicine; PCP Nurse Practitioner; Visit Provider Student in an Organized Health Care Education/Training Program
DX: I13.0 Hypertensive heart and chronic kidney disease with heart failure and stage 1 through stage 4 chronic kidney disease, or unspecified chronic kidney disease (principal); I50.33 Acute on chronic diastolic (congestive) heart failure; J96.21 Acute and chronic respiratory failure with hypoxia; E66.2 Morbid (severe) obesity with alveolar hypoventilation; Z68.43 Body mass index [BMI] 50.0-59.9, adult; I48.20 Chronic atrial fibrillation, unspecified; N18.9 Chronic kidney disease, unspecified; E11.22 Type 2 diabetes mellitus with diabetic chronic kidney disease; Z87.891 Personal history of nicotine dependence; Z99.89 Dependence on other enabling machines and devices; K21.9 Gastro-esophageal reflux disease without esophagitis; E78.5 Hyperlipidemia, unspecified; E03.9 Hypothyroidism, unspecified; R19.5 Other fecal abnormalities; D63.1 Anemia in chronic kidney disease; Z79.4 Long term (current) use of insulin; Z79.891 Long term (current) use of opiate analgesic; Z79.01 Long term (current) use of anticoagulants; Z87.01 Personal history of pneumonia (recurrent); I25.2 Old myocardial infarction; Z86.14 Personal history of Methicillin resistant Staphylococcus aureus infection; F41.9 Anxiety disorder, unspecified
CPT/HCPCS: 36415; 36416; 36600; 51702; 71045; 80051; 80053; 82274; 82330; 82805; 82962; 83880; 84484; 85025; 87486; 87581; 87633; 93005; 94640; 94660; 94664; 94760; 96372; 96374; 96375; 97110; 97116; 97161; 97530; 99291; J0360; J1100; J1815; J3490

== ENCOUNTER → 2022-10-11 09:23 | Outpatient (BNVA) | payer MEDICARE, MEDICAID, SELFPAY | PROVIDERS: PCP Nurse Practitioner; Visit Provider Nurse Practitioner | DX: N17.9 Acute kidney failure, unspecified (principal); N18.9 Chronic kidney disease, unspecified; D63.1 Anemia in chronic kidney disease | CPT/HCPCS: 80053; 81000; 83550; 85025 ==

== ENCOUNTER → 2022-10-16 14:58 | Outpatient (BNVA) | payer MEDICARE, SELFPAY | PROVIDERS: PCP Nurse Practitioner; Visit Provider Internal Medicine Pulmonary Disease | DX: J98.4 Other disorders of lung (principal); I50.9 Heart failure, unspecified; E66.2 Morbid (severe) obesity with alveolar hypoventilation; J98.59 Other diseases of mediastinum, not elsewhere classified; F17.200 Nicotine dependence, unspecified, uncomplicated; Z68.43 Body mass index [BMI] 50.0-59.9, adult; Z99.81 Dependence on supplemental oxygen | CPT/HCPCS: 99214 ==

== ENCOUNTER → 2022-10-31 10:45 | Outpatient (BNVA) | payer MEDICARE, SELFPAY | PROVIDERS: PCP Nurse Practitioner; Visit Provider Nurse Practitioner | DX: E11.65 Type 2 diabetes mellitus with hyperglycemia (principal); Z79.4 Long term (current) use of insulin | CPT/HCPCS: 81000; 83036 ==

== ENCOUNTER 2022-11-23 23:05 | Inpatient (IN) | payer MEDICARE, MEDICAID, SELFPAY ==
--- NOTE | 2022-11-23 23:06 | XRR_ITS ---
PROCEDURE INFORMATION: Exam: XR Chest Exam date and time: 11/23/2022 11:21 PM Age: 62 years old Clinical indication: Shortness of breath; Patient HX: Severe SOB with hypoxia. History of chf. TECHNIQUE: Imaging protocol: Radiologic exam of the chest. Views: 1 view. COMPARISON: CR XR chest 1V portable [id number] 09/28/2022 11:52 AM FINDINGS: Lungs: Moderate lung expansion. Subtle perihilar opacities. Bibasilar atelectasis. Pleural spaces: Small bilateral pleural effusions, right greater than left. No pneumothorax. Heart/Mediastinum: Stable enlargement of the cardiac silhouette. Bones/joints: No acute osseous abnormality. XR/XR chest 1V portable [id number] IMPRESSION: Stable enlarged cardiac silhouette with mild interstitial pulmonary edema and small bilateral pleural effusions which are not significantly changed compared to prior exam.
[2022-11-23 23:11] VITALS: BP 103/64; PULSE 96; RESP 30; TEMP 37.2; O2SAT 83; BMI 51.9
--- NOTE | 2022-11-23 23:15 | ECG_ITS ---
[facility] Test Date: 2022-11-23 Pat Name: Julius Dunlap Department: Room: Gender: Male Weld Engineer: : 1960 Requested By: Ravi Shaver Order Number: [id number] Ana Lilia MD: Fiona Mitchell M.D. Measurements Intervals [place] Rate: 93 P: 0 ND: 0 QRS: 91 QRSD: 113 T: 67 QT: 359 QTc: 447 Interpretive Statements ATRIAL FIBRILLATION BORDERLINE RIGHT AXIS DEVIATION [QRS AXIS > 90] MODERATE INTRAVENTRICULAR CONDUCTION DELAY [110+ ms QRS DURATION] NONSPECIFIC T-WAVE ABNORMALITY ABNORMAL RHYTHM ECG Compared to ECG 09/28/2022 21:13:15 No significant changes Electronically Signed On 11-24-2022 18:12:28 CDT by Fiona Mitchell M.D. [email or web address] [email or web address] love [email or web address] [id number]
[2022-11-23] MEDS: FUROsemide 10 mg/mL SDV 10mL 60 MG IVP (23:25)
--- NOTE | 2022-11-23 23:28 | W.ED.SOB ---
HPI - SOB/Dyspnea General: Chief Complaint: Shortness of Breath/Dyspnea Stated Complaint: SOB Congestive Heart Failure Time Seen by Provider: 11/23/22 23:07 Source: patient Mode of arrival: ambulatory Limitations: no limitations History of Present Illness: HPI Narrative: 62-year-old male has a history of morbid obesity along with congestive heart failure with diastolic in nature. Patient wears trilogy is on 6 L at all times at home he states that over the last 2 days has been having increasing shortness of breath along with edema in his legs. Patient here is 82% on his 6 L states his dyspnea is much worse with exertion he denies any cough denies any fever denies any chest pain Associated symptoms: Deny abdominal pain, chest pain, fever(s), nausea or vomiting Review of Systems Const: Denies: fever(s), chills, body aches or change in appetite ENMT: Denies: throat pain or dental pain Card: Denies: chest pain Resp: Reports: dyspnea GI: Denies: abdominal pain, nausea, vomiting or diarrhea Musc: Denies: neck pain or back pain Skin/Breast: Denies: rash Neuro: Denies: headache(s) PFSH ED PFSH: Medical History Acquired lymphedema Acute diastolic heart failure Acute exacerbation of chronic obstructive airways disease Acute respiratory failure with hypercapnia Afib Allergic rhinitis due to pollen Anemia Anxiety Chronic atrial fibrillation with rapid ventricular response Chronic diastolic (congestive) heart failure Chronic kidney disease Chronic respiratory failure CKD (chronic kidney disease) stage 3, GFR 30-59 ml/min Congestive heart failure Diabetes mellitus with hyperglycemia, with long-term current use of insulin Elevated INR Essential (primary) hypertension GERD (gastroesophageal reflux disease) Hyperlipemia Hypothyroidism Hypoxia, sleep related Leukocytosis Morbid obesity with BMI of 50.0-59.9, adult MRSA infection NSTEMI (non-ST elevated myocardial infarction) Obesity hypoventilation syndrome EDGAR (obstructive sleep apnea) Pneumonia, unspecified organism Surgical History H/O esophagogastroduodenoscopy (02/18/21) History of bilateral cataract extraction 2019 and 2020 History of colonoscopy (02/18/21) History of gangrene Left buttocks requiring surgery May 2014 Family History Father Cancer Mother Heart disease CAD (coronary artery disease) Diabetes Heart attack Stroke Brother Heart attack Clotting disorder Stroke Sister Stroke Denies family history of Dementia Chronic kidney disease (CKD) Suicide Anesthesia complication Bleeding disorder Lung disease Social History Smoking and tobacco status: former smoker Quit status (tobacco): has quit using tobacco Year quit tobacco: 6 weeks ago Second hand smoke exposure: Yes Smoking risk assessment/counseling performed?: Yes Alcohol intake: former Year of sobriety/quit date alcohol: 1991 Desire information about alcohol rehabilitation?: No Counseling given: No Substance/Drug Use: never Desire information about substance/drug rehabilitation?: No Counseling given: No Adopted: No Caregiver/support person: No Lives independently: Yes Household members: spouse Housing: House Marital status: service: No Current occupational status: disabled Pets and animals: Yes Do you think of yourself as: Straight/Heterosexual Current gender identity: Male Physical Exam Const: COMMON NORMALS: patient oriented x3 GENERAL APPEARANCE: in distress HENMT: COMMON NORMALS: normocephalic and atraumatic HEAD & SCALP: normocephalic and atraumatic Eye: COMMON NORMALS: Equal, round and reactive pupils present and EOMs intact bilaterally PUPIL: Yes Equal, round and reactive pupils present Neck/C-Spine: COMMON NORMALS: full ROM and supple Chest: COMMONS NORMALS: normal inspection of the chest and normal palpation of entire chest wall Resp: EFFORT & INSPECTION: Yes tachypneic, Yes respiratory distress and Yes labored AUSCULTATION: rales Cardio: COMMON NORMALS: regular rate, regular rhythm and No murmurs present (Cardio) RATE: regular rate RHYTHM: regular rhythm GI: COMMON NORMALS: Normal to inspection, nondistended, normoactive bowel sounds present, Soft to palpation, non-tender and no masses PALPATION: Yes Soft to palpation Extremity: COMMON NORMALS: normal to inspection and full ROM Neuro: COMMON NORMALS: patient oriented x3, moves all extremities and no focal motor deficits Psych: COMMON NORMALS: mental status grossly normal, Normal thought process present and cooperative THOUGHT PROCESS: Normal thought process present Skin: COMMON NORMALS: no rashes or lesions noted and no wounds GENERAL SKIN EXAM: no rashes or lesions noted Course Vital Signs: Vital signs: Vital Signs Temperature 98.9 F 11/23/22 23:11 Pulse Rate 86 11/24/22 00:00 Respiratory Rate 24 H 11/24/22 00:00 Blood Pressure 129/70 11/24/22 00:00 Pulse Oximetry 92 11/24/22 00:00 Oxygen Delivery Me thod BiPAP 11/24/22 00:00 Oxygen Flow Rate 6 11/23/22 23:11 Fraction of Inspir ed Oxygen 50 11/23/22 23:39 MDM - SOB/Dyspnea Medical Decision Making Patient presents here with shortness of breath likely CHF exacerbation patient was placed on BiPAP here due to hypoxia spoke to the hospitalist will admit at this time. He has no signs of pneumonia. Medical Records I reviewed the patient's medical records. Lab Data I reviewed the patient's lab results. 11/23/22 23:20 11/23/22 23:20 Labs/Radiology: Radiology Impressions Chest X-Ray 11/23/22 23:06 IMPRESSION: Stable enlarged cardiac silhouette with mild interstitial pulmonary edema and small bilateral pleural effusions which are not significantly changed compared to prior exam. Laboratory Results WBC 14.97 10^3/uL (3.29-11.43) H 11/23/22 23:20 RBC 3.62 10^6/uL (3.85-5.65) L 11/23/22 23:20 Hgb 10.20 g/dL (11.27-16.99) L 11/23/22 23:20 Hct 34.5 % (37-53) L 11/23/22 23:20 MCV 95.3 fl (82-101) 11/23/22 23:20 MCH 28.2 pg (27-33) 11/23/22 23:20 MCHC 29.6 g/dL (30-55) L 11/23/22 23:20 RDW 17.2 % (12.1-15.1) H 11/23/22 23:20 Plt Count 258 10^3/cmm (157-399) 11/23/22 23:20 MPV 9.7 fL (7.4-10.4) 11/23/22 23:20 Neut % (Auto) 67.6 % 11/23/22 23:20 Lymph % (Auto) 18.8 % 11/23/22 23:20 Garrett % (Auto) 9.0 % 11/23/22 23:20 Eos % (Auto) 3.5 % 11/23/22 23:20 Baso % (Auto) 0.6 % 11/23/22 23:20 Neut # (Auto) 10.12 10^3/uL (1.8-7.7) H 11/23/22 23:20 Lymph # (Auto) 2.8 10^3/uL (0.8-4.8) 11/23/22 23:20 Garrett # (Auto) 1.3 10^3/uL (0.2-0.9) H 11/23/22 23:20 Eos # (Auto) 0.5 10^3/uL (0.0-0.8) 11/23/22 23:20 Baso # (Auto) 0.1 10^3/uL (0.0-0.1) 11/23/22 23:20 Nucleated RBC % (auto) 0 % 11/23/22 23:20 Nucleated RBCs # 0.0 /100WBC 11/23/22 23:20 Specimen Type Arterial 11/23/22 23:21 Sample Site Radial, left 11/23/22 23:21 ABG pH 7.36 (7.35-7.45) 11/23/22 23:21 ABG pCO2 48.6 mmHg (35-45) H 11/23/22 23:21 ABG pO2 67.6 mmHg (80.0-100.0) L 11/23/22 23:21 ABG HCO3 27.2 mmol/L (22-26) H 11/23/22 23:21 ABG Base Excess 1.2 mmol/L (-2.0-2.0) 11/23/22 23:21 Avila Test Pos 11/23/22 23:21 Hematocrit 31.6 % (42-52) L 11/23/22 23:21 O2 Delivery Device Nc 11/23/22 23:21 O2 Liters/Min 10.0 % 11/23/22 23:21 Linseed Oil Press Tender ID Walci 11/23/22 23:21 Sodium 142 mmol/L (136-145) 11/23/22 23:20 Potassium 4.9 mmol/L (3.5-5.1) 11/23/22 23:20 Chloride 106 mmol/L (98-107) 11/23/22 23:20 Carbon Dioxide 27 mmol/L (22-29) 11/23/22 23:20 Anion Gap 13.9 (5-19) 11/23/22 23:20 BUN 18 mg/dL (8-23) 11/23/22 23:20 Creatinine 1.3 mg/dL (0.7-1.2) H 11/23/22 23:20 GFR Calculation 55.9 mL/min (90-130) L 11/23/22 23:20 Glucose 147 mg/dL (65-115) H 11/23/22 23:20 Calculated Osmolality 299 mOsm/kg (285-295) H 11/23/22 23:20 Calcium 9.1 mg/dL (8.5-10.5) 11/23/22 23:20 Total Bilirubin 0.4 mg/dL (0.15-1.2) 11/23/22 23:20 AST 14 U/L (0-40) 11/23/22 23:20 ALT 9 U/L (0-41) 11/23/22 23:20 Alkaline Phosphatase 119 U/L (40-130) 11/23/22 23:20 Troponin T Baseline 62 ng/L (0-15) H 11/23/22 23:20 NT-Pro-B Natriuret Pep 1594 pg/mL (0-125) H 11/23/22 23:20 Total Protein 7.4 g/dL (6.6-8.7) 11/23/22 23:20 Albumin 3.9 g/dL (3.5-5.2) 11/23/22 23:20 Globulin 3.5 g/dL (1.3-4.6) 11/23/22 23:20 SARS-CoV-2 Ag (Rapid) negative (Negative) 11/24/22 00:12 Critical Care Time Critical Care Time: Critical Care Time: Yes Total Critical Care Time: 40 Attestation: The high probability of a clinically significant, sudden or life threatening deterioration of the patient's cv/resp system(s) required my full and direct attention, intervention and personal management. The critical care time is as shown. This time is in addition to time spent performing any reported procedures but includes the following: [x] Data and vital sign review and interpretation [x] Patient assessment, examination and intervention [x] Documentation [x] Medication orders and management Discharge Plan Discharge Patient Disposition: Admitted As Inpatient Clinical Impression: Chronic respiratory failure, Congestive heart failure, Chronic diastolic (congestive) heart failure Condition: Stable Coding Level of Care Code ED Student Career Development Specialist for Alyse [place]
[2022-11-23 23:32] LABS: ABG PCO2 48.6 mmHg (35-45); ABG PH Result 7.36 (7.35-7.45); Arterial Blood Gas Hematocrit 31.6 % (42-52); Base Excess ABG 1.2 mmol/L (-2.0-2.0); Blood Gas Allen Test Pos; Blood Gas Operator Identificat WALCI; Blood Gas Sample Site Radial, left; Blood Gas Sample Type Arterial; HCO3 ABG 27.2 mmol/L (22-26); Oxygen Device NC; PO2 ABG 67.6 mmHg (80.0-100.0)
[2022-11-23 23:33] VITALS: BP 139/73; PULSE 82; RESP 20; O2SAT 93
[2022-11-23 23:35] LABS: Basophils # 0.1 10^3/uL (0.0-0.1); Basophils % 0.6 %; Eosinophils # 0.5 10^3/uL (0.0-0.8); Eosinophils % 3.5 %; Hematocrit 34.5 % (37-53); Lymphocytes # 2.8 10^3/uL (0.8-4.8); Lymphocytes % 18.8 %; Mean Corpuscular HGB Conc 29.6 g/dL (30-55); Mean Corpuscular Hemoglobin 28.2 pg (27-33); Mean Corpuscular Volume 95.3 fl (82-101); Mean Platelet Volume 9.7 fL (7.4-10.4); Monocytes # 1.3 10^3/uL (0.2-0.9); Neutrophils # 10.12 10^3/uL (1.8-7.7); Neutrophils % 67.6 %; Nucleated Red Blood Cells % 0 %; Platelet Count 258 10^3/cmm (157-399); Red Blood Count 3.62 10^6/uL (3.85-5.65); Red Cell Distribution Width 17.2 % (12.1-15.1); White Blood Count 14.97 10^3/uL (3.29-11.43)
[2022-11-23 23:37] VITALS: PULSE 91; RESP 27; O2SAT 93
[2022-11-23 23:39] VITALS: PULSE 84; RESP 30; O2SAT 93
[2022-11-23 23:48] LABS: Troponin(5th) Baseline 62 ng/L (0-15)
[2022-11-24] VITALS (15 sets, daily range): BP systolic 112–160; BP diastolic 46–86; PULSE 70–86; RESP 16–32; TEMP 36.6–37.3; O2SAT 85–98
[2022-11-24 00:01] LABS: Alanine Aminotransferase 9 U/L (0-41); Albumin Level 3.9 g/dL (3.5-5.2); Alkaline Phosphatase 119 U/L (40-130); Anion Gap 13.9 (5-19); Aspartate Amino Transferase 14 U/L (0-40); Blood Urea Nitrogen 18 mg/dL (8-23); Calcium 9.1 mg/dL (8.5-10.5); Carbon Dioxide 27 mmol/L (22-29); Chloride 106 mmol/L (98-107); Globulin 3.5 g/dL (1.3-4.6); Glomerular Filtration Rate 55.9 mL/min (90-130); Glucose 147 mg/dL (65-115); NT Pro B Type Natriuretic Pept 1594 pg/mL (0-125); Osmolality Calculated 299 mOsm/kg (285-295); Potassium 4.9 mmol/L (3.5-5.1); Sodium 142 mmol/L (136-145); Total Bilirubin 0.4 mg/dL (0.15-1.2); Total Protein 7.4 g/dL (6.6-8.7)
[2022-11-24 00:37] LABS: SARS Covid-2 Antigen negative (Negative)
--- NOTE | 2022-11-24 01:04 | P.HP_ITS ---
Providers/Chief Complaint Primary Care Provider: SOBIA SamuelC Chief Complaint: SOB Conjestive Heart Failure History of Present Illness Julius Dunlap is a 62 year old male with a past medical history of insulin- dependent type 2 diabetes mellitus, history of morbid obesity, history of small airway disease, history of obesity hypoventilation syndrome, history of COPD, history of diastolic CHF, history of atrial fibrillation on Xarelto who presents to [facility] due to a 72-hour history of increasingly short of breath, with bilateral extremity edema. No fevers, does report a cough, does report intermittent smoking, for his chronic respiratory failure he uses AVAPS, and he is compliant with this. No travel, no recent sick contacts, no recent surgeries, no chest pain Review of Systems Const: Denies: fever(s) or chills Eyes: Denies: change in vision Card: Denies: chest pain Resp: Reports: dyspnea GI: Denies: abdominal pain : Denies: flank pain Musc: Denies: neck pain or back pain Medications/Allergies Home Medications Medication Instructions Recorded Confirmed Last Taken Type amlodipine 10 mg tablet 10 mg PO DAILY #90 tabs 01/03/22 10/31/22 09/28/22 Rx colesevelam 625 mg tablet (WelChol) 1,875 mg PO BID #540 tabs 01/03/22 10/31/22 09/28/22 Rx hydralazine 100 mg tablet 100 mg PO TID #270 tabs 01/03/22 10/31/22 09/28/22 Rx potassium chloride 20 mEq 20 meq PO BID #180 tabs 01/03/22 10/31/22 09/28/22 Rx tablet,extended release pen needle, diabetic 31 gauge x #100 ea 01/27/22 10/31/22 Unknown Rx 16 (TechLITE Pen Needle) fenofibrate nanocrystallized 145 145 mg PO BEDTIME 04/06/22 10/31/22 09/28/22 History mg tablet ascorbic acid (vitamin C) 500 mg 500 mg PO DAILY #30 tabs 04/08/22 10/31/22 09/28/22 Rx tablet cyanocobalamin (vitamin B-12) 500 mcg PO DAILY #30 tabs 05/09/22 10/31/22 09/28/22 Rx 1,000 mcg tablet (Vitamin B-12) amiodarone 200 mg tablet 200 mg PO DAILY #90 tabs 07/06/22 10/31/22 09/28/22 Rx rivaroxaban 20 mg tablet (Xarelto) 20 mg PO DAILY #90 tabs 07/06/22 10/31/22 09/28/22 Rx ipratropium 0.5 mg-albuterol 3 mg 3 ml inhalation BID PRN Shortness 07/24/22 10/31/22 09/28/22 History (2.5 mg base)/3 mL nebulization Of Breath soln rosuvastatin 20 mg tablet 20 mg PO DAILY #30 tabs 08/08/22 10/31/22 09/28/22 Rx trazodone 100 mg tablet 100 mg PO BEDTIME #30 tabs 08/08/22 10/31/22 09/27/22 Rx umeclidinium 62.5 mcg-vilanterol 1 inh inhalation Q24H #60 ea 08/08/22 10/31/22 09/28/22 Rx 25 mcg/actuation powdr for inhalation (Anoro Ellipta) venlafaxine 150 mg 150 mg PO QAM #30 caps 08/08/22 10/31/22 09/28/22 Rx capsule,extended release 24 hr (Effexor XR) ipratropium 0.5 mg-albuterol 3 mg 3 ml inhalation Q4H PRN wheezing 10/16/22 10/31/22 Unknown Rx (2.5 mg base)/3 mL nebulization #180 mL soln ferrous gluconate 324 mg (38 mg 324 mg PO BID #60 tabs 10/17/22 10/31/22 Unknown Rx iron) tablet Oxygen Pendant #1 ea 10/20/22 10/31/22 Unknown Rx buspirone 15 mg tablet 15 mg PO BID #60 tabs 10/31/22 10/31/22 Unknown Rx cetirizine 10 mg tablet 10 mg PO DAILY #30 tabs 10/31/22 10/31/22 Unknown Rx dapagliflozin 5 mg tablet (Farxiga) 5 mg PO QAM #30 tabs 10/31/22 10/31/22 Unknown Rx insulin degludec 100 unit/mL (3 See Rx Instructions SUBCUT DAILY 10/31/22 10/31/22 Unknown Rx mL) subcutaneous pen (Tresiba #50 mL FlexTouch U-100 insulin) levothyroxine 175 mcg tablet 175 mcg PO DAILY #30 tabs 10/31/22 10/31/22 Unknown Rx liraglutide 0.6 mg/0.1 mL (18 mg/3 1.8 mg (0.3 mL) SUBCUT Q24H #9 mL 10/31/22 10/31/22 Unknown Rx mL) subcutaneous pen injector (Victoza 3-Leonides) montelukast 10 mg tablet 10 mg PO DAILY #30 tabs 10/31/22 10/31/22 Unknown Rx (Singulair) bumetanide 1 mg tablet 2 mg PO BID 30 days #60 tabs 11/20/22 Unknown Rx Allergies Allergy/AdvReac Type Severity Reaction Status Date / Time No Known Allergies Allergy Verified 10/31/22 10:02 PFSH Acute PFSH: Medical History Acquired lymphedema Acute diastolic heart failure Acute exacerbation of chronic obstructive airways disease Acute respiratory failure with hypercapnia Afib Allergic rhinitis due to pollen Anemia Anxiety Chronic atrial fibrillation with rapid ventricular response Chronic diastolic (congestive) heart failure Chronic kidney disease Chronic respiratory failure CKD (chronic kidney disease) stage 3, GFR 30-59 ml/min Congestive heart failure Diabetes mellitus with hyperglycemia, with long-term current use of insulin Elevated INR Essential (primary) hypertension GERD (gastroesophageal reflux disease) Hyperlipemia Hypothyroidism Hypoxia, sleep related Leukocytosis Morbid obesity with BMI of 50.0-59.9, adult MRSA infection NSTEMI (non-ST elevated myocardial infarction) Obesity hypoventilation syndrome EDGAR (obstructive sleep apnea) Pneumonia, unspecified organism Surgical History H/O esophagogastroduodenoscopy (02/18/21) History of bilateral cataract extraction 2019 and 2020 History of colonoscopy (02/18/21) History of gangrene Left buttocks requiring surgery May 2014 Family History Father Cancer Mother Heart disease CAD (coronary artery disease) Diabetes Heart attack Stroke Brother Heart attack Clotting disorder Stroke Sister Stroke Denies family history of Dementia Chronic kidney disease (CKD) Suicide Anesthesia complication Bleeding disorder Lung disease Social History Smoking and tobacco status: former smoker Quit status (tobacco): has quit using tobacco Year quit tobacco: 6 weeks ago Second hand smoke exposure: Yes Smoking risk assessment/counseling performed?: Yes Alcohol intake: former Year of sobriety/quit date alcohol: 1992 Desire information about alcohol rehabilitation?: No Counseling given: No Substance/Drug Use: never Desire information about substance/drug rehabilitation?: No Counseling given: No Adopted: No Caregiver/support person: No Lives independently: Yes Household members: spouse Housing: House Marital status: service: No Current occupational status: disabled Pets and animals: Yes Do you think of yourself as: Straight/Heterosexual Current gender identity: Male Vitals/I&O/Wt Last Vital Signs Temp 98.9 F 11/23/22 23:11 Pulse 86 11/24/22 00:00 Resp 24 H 11/24/22 00:00 BP 129/70 11/24/22 00:00 Pulse Ox 92 11/24/22 00:00 O2 Del Method BiPAP 11/24/22 00:00 O2 Flow Rate 6 11/23/22 23:11 FiO2 50 11/23/22 23:39 Weight last 48 hrs Weight 173.726 kg Physical Exam 2 Const: COMMON NORMALS: no acute distress and patient oriented x3 GENERAL APPEARANCE: cooperative and well developed HENMT: COMMON NORMALS: normocephalic and Normal external nose present HEAD & SCALP: normocephalic FACE & SINUS: normal facial exam NOSE: Normal external nose present Eye: COMMON NORMALS: Equal, round and reactive pupils present, EOMs intact bilaterally and conjunctivae normal CONJUNCTIVA: Yes conjunctivae normal PUPIL: Yes Equal, round and reactive pupils present Neck/C-Spine: COMMON NORMALS: full ROM, no lymphadenopathy, no JVD and Thyroid normal Lymph: LYMPHATIC: no lymphadenopathy noted Chest: COMMONS NORMALS: normal inspection of the chest Resp: COMMON NORMALS: normal respiratory effort, No retractions and No use of accessory muscles AUSCULTATION: crackles Cardio: COMMON NORMALS: regular rate, regular rhythm, S1 normal heart sound present, S2 normal heart sound present, No murmurs present (Cardio) and Peripheral pulses 2+ throughout RATE: regular rate RHYTHM: regular rhythm HEART SOUNDS: S1 normal heart sound present and S2 normal heart sound present PERIPHERAL PULSES: Peripheral pulses 2+ throughout GI: COMMON NORMALS: Soft to palpation and non-tender INSPECTION: Yes normal to inspection and Yes abdominal distension AUSCULTATION: Yes normoactive bowel sounds PALPATION: Yes Soft to palpation, No Tenderness to palpation present (GI), No Guarding due to palpation present (GI) and No Rigid due to pa lpation OTHER: abdomen distended : BLADDER/KIDNEY EXAM: Yes no CVA tenderness Extremity: NARRATIVE EXTREMITY EXAM: 3+ pitting edema Neuro: COMMON NORMALS: patient oriented x3, CN's II-XII intact bilaterally and moves all extremities Psych: COMMON NORMALS: mental status grossly normal, Normal thought process present, cooperative and speech normal SPEECH: Yes normal speech THOUGHT PROCESS: Normal thought process present Data 11/23/22 23:20 11/23/22 23:20 A&P Assessment and plan (1) Morbid obesity with BMI of 50.0-59.9, adult: (2) Hypothyroidism: (3) CKD (chronic kidney disease) stage 3, GFR 30-59 ml/min: (4) EDGAR (obstructive sleep apnea): (5) Chronic respiratory failure: (6) Chronic diastolic (congestive) heart failure: (7) Diastolic CHF, acute on chronic: (8) Fluid overload: (9) Afib: (10) Obesity hypoventilation syndrome: (11) Small airways disease: (12) Nicotine dependence, cigarettes, uncomplicated: (13) Chronic anticoagulation: Plan Acute diastolic CHF exacerbation with fluid overload -Fluid restrictions at 1000 cc -Bumex 1 mg IV push every 8 hours as needed -More creatinine, monitor potassium -Serial EKGs, short appointment telemetry monitoring - will bring in AVAPS this afternoon, continue BiPAP for now -Will monitor in the cardiac stepdown unit Obesity hypoventilation syndrome, small airway disease, COPD -On home AVAPS History of atrial fibrillation -Continue amiodarone -Continue Xarelto Insulin-dependent type 2 diabetes mellitus -Is on Tresiba 35 units every morning, switch to Lantus 20 units every morning -Low-dose sliding scale Does have leukocytosis -Pro-Dayron, CRP -Chest x-ray no focal pneumonia -Obtain a UA Rest per-viral panel Xarelto for DVT prophylaxis Full code Attestations Medical Necessity Statement*: patient requires hospitalization for acute diastolic chf exacerbation, fluid overload, inpatient, greater than 2 midnights Diagnoses Morbid obesity with BMI of 50.0-59.9, adult E66.01; Z68.43 Hypothyroidism E03.9 CKD (chronic kidney disease) stage 3, GFR 30-59 ml/min N18.30 EDGAR (obstructive sleep apnea) G47.33 Chronic respiratory failure J96.10 Chronic diastolic (congestive) heart failure I50.32 Diastolic CHF, acute on chronic I50.33 Fluid overload E87.70 Afib I48.91 Obesity hypoventilation syndrome E66.2 Small airways disease J98.4 Nicotine dependence, cigarettes, uncomplicated F17.210 Chronic anticoagulation Z79.01
--- NOTE | 2022-11-24 01:07 | ECG_ITS ---
[facility] Test Date: 2022-11-24 Pat Name: Julius Dunlap Department: Room: Gender: Male Weblogic Administrator: : 1960 Requested By: Ravi Shaver Order Number: [id number] Ana Lilia MD: Fiona Mitchell M.D. Measurements Intervals [place] Rate: 80 P: 0 CT: 0 QRS: 87 QRSD: 110 T: 93 QT: 342 QTc: 396 Interpretive Statements ATRIAL FIBRILLATION MODERATE INTRAVENTRICULAR CONDUCTION DELAY [105+ ms QRS DURATION, 80+ ms Q/S IN V1/V2, NO Q AND 60+ ms R IN I/aVL/V5/V6] NONSPECIFIC ST & T-WAVE ABNORMALITY Compared to ECG 11/23/2022 23:15:34 No significant changes Electronically Signed On 11-24-2022 18:19:37 CDT by Fiona Mitchell M.D. [id number]
[2022-11-24 01:26] LABS: Troponin 5 2HR 67.59 ng/L (0-15)
[2022-11-24 01:27] LABS: C Reactive Protein 37.1 mg/L (0.0-4.9)
[2022-11-24 01:32] LABS: Troponin 5 2HR Delta 5.59 ABS# (0-10)
[2022-11-24 01:34] LABS: Procalcitonin 0.29 ng/mL (0-0.5)
[2022-11-24 01:55] LABS: NT Pro B Type Natriuretic Pept 1689 pg/mL (0-125); Thyroid Stimulating Hormone 4.07 uIU/mL (0.27-4.20)
[2022-11-24 01:58] LABS: Add Urine Microscopic? YES; Bilirubin Urine Neg (Negative); Blood Urine Neg (Negative); Glucose Urine UA 2+ (Normal); Ketones Urine Negative (Negative); Leukocyte Esterase Urine Negative (Negative); Nitrate Urine Negative (Negative); Protein Urine Trace (Negative); Specific Gravity, Urine 1.005 (1.005-1.030); Urine Appearance Clear (CLEAR); Urine Color Light yellow (Yellow); Urobilinogen Urine Neg (Negative); pH Urine 5 (5-7)
[2022-11-24 01:59] LABS: Bacteria Urine TRACE /hpf
[2022-11-24 02:00] LABS: Add Urine Culture? No
[2022-11-24 02:17] LABS: Estmated Average Glucose 154
[2022-11-24 03:36] LABS: Adenovirus Not Detected (NOT DETECT); Chlamydia Pneumoniae Not Detected (NOT DETECT); Coronavirus 229E,HKU1,NL63,OC4 Not Detected (NOT DETECT); Human Metapneumovirus Not Detected (NOT DETECT); Human Rhinovirus/Enterovirus Not Detected (NOT DETECT); Influenza A Not Detected (NOT DETECT); Influenza A H1 Not Detected (NOT DETECT); Influenza A H1-2009 Not Detected (NOT DETECT); Influenza A H3 Not Detected (NOT DETECT); Influenza B Not Detected (NOT DETECT); Mycoplasma Pneumoniae Not Detected (NOT DETECT); Parainfluenza Virus Type 1 Not Detected (NOT DETECT); Parainfluenza Virus Type 2 Not Detected (NOT DETECT); Parainfluenza Virus Type 3 Not Detected (NOT DETECT); Parainfluenza Virus Type 4 Not Detected (NOT DETECT); Respiratory Syncytial Virus A Not Detected (NOT DETECT); Respiratory Syncytial Virus B Not Detected (NOT DETECT); SARS-COV-2 Not Detected (NOT DETECT)
[2022-11-24] MEDS: pantoprazole 40 mg SDV IVP (04:32)
[2022-11-24] MEDS: venlafaxine ER (24HR) 150 mg Capsule PO (04:33)
--- NOTE | 2022-11-24 05:06 | ECG_ITS ---
[facility] Test Date: 2022-11-24 Pat Name: Julius Dunlap Department: Room: 108 Gender: Male Medical Attendant: : 1960 Requested By: Ravi Shaver Order Number: [id number] Ana Lilia MD: Fiona Mitchell M.D. Measurements Intervals [place] Rate: 79 P: 0 MA: 0 QRS: 95 QRSD: 110 T: 84 QT: 415 QTc: 477 Interpretive Statements ATRIAL FIBRILLATION BORDERLINE RIGHT AXIS DEVIATION [QRS AXIS > 90] NONSPECIFIC T-WAVE ABNORMALITY ABNORMAL RHYTHM ECG Compared to ECG 11/24/2022 01:07:15 Intraventricular conduction delay no longer present T-wave abnormality still present Electronically Signed On 11-24-2022 18:19:54 CDT by Fiona Mitchell M.D. [id number]
[2022-11-24 05:25] LABS: Troponin 5 6HR 69.39 ng/L (0-15)
[2022-11-24 05:28] LABS: Troponin 5 6HR Delta 7.39 ng/L (0-12)
[2022-11-24 06:38] LABS: Glucose Point of Care 104 mg/dL (70-110)
[2022-11-24] MEDS: ipratropium-albuterol 3 mL Neb INHALATION (07:45)
[2022-11-24] MEDS: hyDRALAzine 50 mg Tablet 100 MG PO ×3 (08:53→20:25)
[2022-11-24] MEDS: potassium chloride ER 20 mEq Tablet PO ×2 (08:53→17:34)
[2022-11-24] MEDS: amiodarone 200 mg Tablet PO (08:53)
[2022-11-24] MEDS: levothyroxine 175 mcg Tablet PO (08:53)
[2022-11-24] MEDS: rivaroxaban 10 mg Tablet 20 MG PO (08:53)
[2022-11-24] MEDS: bumetanide 0.25 mg/mL SDV 10 mL 1 MG IVP ×3 (08:53→23:21)
[2022-11-24] MEDS: insulin glargine 100 units/1 mL 20 UNIT SUBCUT (08:53)
[2022-11-24] MEDS: BuSPIRONE 10 mg Tablet 15 MG PO ×2 (08:54→17:34)
[2022-11-24] MEDS: atorvastatin 40 mg Tablet 80 MG PO (08:54)
[2022-11-24] MEDS: cyanocobalamin 1,000 mcg Tablet 500 MCG PO (09:01)
[2022-11-24 11:15] LABS: Glucose Point of Care 110 mg/dL (70-110)
--- NOTE | 2022-11-24 15:59 | PM.PN ---
Subjective Subjective: Reports feeling better today, breathing better. Denies chest pain currently. Vitals/I&O/Wt Last Vital Signs Temp 98.4 F 11/24/22 11:50 Pulse 78 11/24/22 11:50 Resp 24 H 11/24/22 11:50 BP 150/76 11/24/22 11:50 Pulse Ox 97 11/24/22 11:50 O2 Del Method CPAP 11/24/22 11:50 O2 Flow Rate 6 11/23/22 23:11 FiO2 50 11/24/22 11:23 11/24/22 11/24/22 11/24/22 06:59 14:59 22:59 Intake Total 500 / 500 480 / 480 Output Total 1400 / 1400 2870 / 2870 Balance -900 / -900 -2390 / -2390 Weight last 48 hrs Weight 382 lb 8 oz Weight 383 lb Physical Exam Narrative: General: Cooperative patient in no apparent distress. Obese. HEENT: Normocephalic, Atraumatic. External ears normal. Nasal passages patent without drainage. MMM. Heart: RRR. Resp: LCTA. No respiratory distress, no use of accessory muscles. Abd: Soft, non-tender. Non-distended. Extremities: 1+LE edema. Skin: No rash or lesions on exposed areas. Neuro: No focal motor or sensory loss. Urinary Catheter Management: Jiménez: Cath Placed During This Visit: yes Reason for Continuing Indwelling Catheter: Acute Urinary Retention or Obstruction Urinary Catheter Date of Insertion: 11/24/22 Urinary Catheter Time of Insertion: 02:05 Data 11/23/22 23:20 11/23/22 23:20 Micro: Microbiology 11/24/22 03:00 Blood Culture - Preliminary Blood SPECIMEN COLLECTED 11/24/22 03:00 Blood Culture - Preliminary Blood SPECIMEN COLLECTED A&P Assessment and plan (1) Morbid obesity with BMI of 50.0-59.9, adult: (2) Hypothyroidism: (3) CKD (chronic kidney disease) stage 3, GFR 30-59 ml/min: (4) EDGAR (obstructive sleep apnea): (5) Chronic respiratory failure: (6) Chronic diastolic (congestive) heart failure: (7) Diastolic CHF, acute on chronic: (8) Fluid overload: (9) Afib: (10) Obesity hypoventilation syndrome: (11) Small airways disease: (12) Nicotine dependence, cigarettes, uncomplicated: (13) Chronic anticoagulation: Plan 62-year-old male admitted for Dyspnea, acute diastolic CHF exacerbation with fluid overload.. Continue close inpatient monitoring. Fluid restrictions at 1000 cc. Strict I/O's. Has had about 3 L off overnight. Bumex 1 mg IV push every 8 hours as needed. Recheck a.m. labs. Continue telemetry. Currently using BiPAP. Spouse planning to bring in AVAPS. Continue amiodarone and Xarelto for his atrial fibrillation. Continue Lantus, Sliding scale insulin, Accu-Checks. Code Status: Full IVF: None DVT PPx: Xarelto GI PPx: Protonix ABx: None Diet: Cardiac Discharge plan: Home when stable. Anticipate discharge in the next 1 to 2 days. Attestations Medical Necessity Statement*: patient requires hospitalization for acute diastolic chf exacerbation, fluid overload, inpatient, greater than 2 midnights Coding Level of Care Code Acute Code for Chg Fwd Moderate MDM includes number and complexity of problems actively addressed during encounter, amount and/or complexity of data reviewed/ordered and described risk of complication, morbidity or mortality of management as documented Diagnoses Morbid obesity with BMI of 50.0-59.9, adult E66.01; Z68.43 Hypothyroidism E03.9 CKD (chronic kidney disease) stage 3, GFR 30-59 ml/min N18.30 EDGAR (obstructive sleep apnea) G47.33 Chronic respiratory failure J96.10 Chronic diastolic (congestive) heart failure I50.32 Diastolic CHF, acute on chronic I50.33 Fluid overload E87.70 Afib I48.91 Obesity hypoventilation syndrome E66.2 Small airways disease J98.4 Nicotine dependence, cigarettes, uncomplicated F17.210 Chronic anticoagulation Z79.01
[2022-11-24 16:41] LABS: Glucose Point of Care 102 mg/dL (70-110)
[2022-11-24] MEDS: trazodone 100 mg Tablet PO (20:25)
[2022-11-24] MEDS: fenofibrate 145 mg Tablet PO (20:25)
[2022-11-24 21:09] LABS: Glucose Point of Care 221 mg/dL (70-110)
[2022-11-25] VITALS (7 sets, daily range): BP systolic 136–145; BP diastolic 68–78; PULSE 75–87; RESP 17–29; TEMP 36.6–36.8; O2SAT 92–95
[2022-11-25 04:02] LABS: Basophils # 0.1 10^3/uL (0.0-0.1); Basophils % 0.5 %; Eosinophils # 0.4 10^3/uL (0.0-0.8); Eosinophils % 3.3 %; Hematocrit 31.8 % (37-53); Lymphocytes # 1.8 10^3/uL (0.8-4.8); Lymphocytes % 14.2 %; Mean Corpuscular HGB Conc 29.6 g/dL (30-55); Mean Corpuscular Hemoglobin 28.1 pg (27-33); Mean Corpuscular Volume 94.9 fl (82-101); Mean Platelet Volume 9.8 fL (7.4-10.4); Monocytes # 1.2 10^3/uL (0.2-0.9); Monocytes % 9.6 %; Neutrophils # 9.08 10^3/uL (1.8-7.7); Nucleated Red Blood Cells % 0 %; Platelet Count 232 10^3/cmm (157-399); Red Blood Count 3.35 10^6/uL (3.85-5.65); Red Cell Distribution Width 17.1 % (12.1-15.1); White Blood Count 12.61 10^3/uL (3.29-11.43)
[2022-11-25 04:31] LABS: Anion Gap 12.4 (5-19); Blood Urea Nitrogen 19 mg/dL (8-23); Calcium 8.9 mg/dL (8.5-10.5); Carbon Dioxide 31 mmol/L (22-29); Chloride 102 mmol/L (98-107); Glomerular Filtration Rate 51.4 mL/min (90-130); Glucose 113 mg/dL (65-115); Osmolality Calculated 295 mOsm/kg (285-295); Phosphorus 4.6 mg/dL (2.5-4.5); Potassium 4.4 mmol/L (3.5-5.1); Sodium 141 mmol/L (136-145)
[2022-11-25] MEDS: pantoprazole 40 mg SDV IVP (05:41)
[2022-11-25] MEDS: venlafaxine ER (24HR) 150 mg Capsule PO (05:41)
[2022-11-25 06:15] LABS: Glucose Point of Care 112 mg/dL (70-110)
[2022-11-25] MEDS: rivaroxaban 10 mg Tablet 20 MG PO (08:12)
[2022-11-25] MEDS: insulin glargine 100 units/1 mL 20 UNIT SUBCUT (08:12)
[2022-11-25] MEDS: hyDRALAzine 50 mg Tablet 100 MG PO (08:13)
[2022-11-25] MEDS: atorvastatin 40 mg Tablet 80 MG PO (08:14)
[2022-11-25] MEDS: levothyroxine 175 mcg Tablet PO (08:14)
[2022-11-25] MEDS: potassium chloride ER 20 mEq Tablet PO (08:14)
[2022-11-25] MEDS: cyanocobalamin 1,000 mcg Tablet 500 MCG PO (08:14)
[2022-11-25] MEDS: amiodarone 200 mg Tablet PO (08:14)
[2022-11-25] MEDS: BuSPIRONE 10 mg Tablet 15 MG PO (08:14)
[2022-11-25] MEDS: bumetanide 0.25 mg/mL SDV 10 mL 1 MG IVP (08:15)
[2022-11-25 11:37] LABS: Glucose Point of Care 136 mg/dL (70-110)
--- NOTE | 2022-11-25 16:23 | P.DS_ITS ---
Discharge Providers Date of Admission: 11/24/22 00:53 Date of Discharge: November 25, 2022 Attending Provider at Admission: Dave Doty MD Attending Provider at Discharge: Dave Doty MD Primary Care Provider: YONATHAN Samuel Diagnoses at Discharge Discharge Diagnosis (1) Morbid obesity with BMI of 50.0-59.9, adult: Status: Chronic (2) Hypothyroidism: Status: Chronic (3) CKD (chronic kidney disease) stage 3, GFR 30-59 ml/min: Status: Chronic (4) EDGAR (obstructive sleep apnea): Status: Chronic (5) Chronic respiratory failure: Status: Chronic (6) Chronic diastolic (congestive) heart failure: Status: Chronic (7) Diastolic CHF, acute on chronic: Status: Acute (8) Fluid overload: Status: Acute (9) Afib: Status: Acute (10) Obesity hypoventilation syndrome: Status: Acute (11) Small airways disease: Status: Acute (12) Nicotine dependence, cigarettes, uncomplicated: Status: Chronic (13) Chronic anticoagulation: Status: Acute Reason for Visit Reason for Visit: [facility] Heart Failure Hospital Course Hospital Course Julius Dunlap is a 62 year old male with a past medical history of insulin- dependent type 2 diabetes mellitus, history of morbid obesity, history of small airway disease, history of obesity hypoventilation syndrome, history of COPD, history of diastolic CHF, history of atrial fibrillation on Xarelto who presents to [facility] due to a 72-hour history of increasingly short of breath, with bilateral extremity edema. He was admitted to the cardiac stepdown floor, started on fluid restriction as well as IV Bumex every 8 hours. Cardiac work-up was negative for acute TN. In addition, he was started on BiPAP. He is on home oxygen generally at 6 L. Cardiac work-up was otherwise unremarkable. Over the course of his stay he was able to diurese appropriately. His oxygen requirement was reduced throughout his stay, and patient was asymptomatic at time of discharge. 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 He was discharged in stable and improved condition. Physical Exam Narrative: General: Cooperative patient in no apparent distress. Well developed. HEENT: Normocephalic, Atraumatic. External ears normal. Nasal passages patent without drainage. MMM. Heart: RRR. Resp: LCTA. No respiratory distress, no use of accessory muscles. Abd: Soft, non-tender. Non-distended. Extremities: No edema. Skin: No rash or lesions on exposed areas. Urinary Catheter Management: Jiménez: Cath Placed During This Visit: yes, but has since been removed by the nurse Reason for Continuing Indwelling Catheter: Accurate Measurement of Urinary Output in Critically Ill Patients Urinary Catheter Date of Insertion: 11/24/22 Urinary Catheter Time of Insertion: 02:05 Date Urinary Catheter Removed: 11/25/22 Time Urinary Catheter Discontinued: 12:39 Discharge Data Studies Completed and Pending Completed Studies During Hospitalization Category Date Time Status XR chest 1V portable [id number] Stat Exams 11/23/22 23:06 Completed Pending at discharge Category Date Time Status Blood Culture Stat Lab 11/24/22 03:00 Results Radiology Impressions Chest X-Ray 11/23/22 23:06 IMPRESSION: Stable enlarged cardiac silhouette with mild interstitial pulmonary edema and small bilateral pleural effusions which are not significantly changed compared to prior exam. Laboratory Results WBC 12.61 10^3/uL (3.29-11.43) H 11/25/22 03:48 RBC 3.35 10^6/uL (3.85-5.65) L 11/25/22 03:48 Hgb 9.40 g/dL (11.27-16.99) L 11/25/22 03:48 Hct 31.8 % (37-53) L 11/25/22 03:48 MCV 94.9 fl (82-101) 11/25/22 03:48 MCH 28.1 pg (27-33) 11/25/22 03:48 MCHC 29.6 g/dL (30-55) L 11/25/22 03:48 RDW 17.1 % (12.1-15.1) H 11/25/22 03:48 Plt Count 232 10^3/cmm (157-399) 11/25/22 03:48 MPV 9.8 fL (7.4-10.4) 11/25/22 03:48 Neut % (Auto) 72.0 % 11/25/22 03:48 Lymph % (Auto) 14.2 % 11/25/22 03:48 Edwards % (Auto) 9.6 % 11/25/22 03:48 Eos % (Auto) 3.3 % 11/25/22 03:48 Baso % (Auto) 0.5 % 11/25/22 03:48 Neut # (Auto) 9.08 10^3/uL (1.8-7.7) H 11/25/22 03:48 Lymph # (Auto) 1.8 10^3/uL (0.8-4.8) 11/25/22 03:48 Edwards # (Auto) 1.2 10^3/uL (0.2-0.9) H 11/25/22 03:48 Eos # (Auto) 0.4 10^3/uL (0.0-0.8) 11/25/22 03:48 Baso # (Auto) 0.1 10^3/uL (0.0-0.1) 11/25/22 03:48 Nucleated RBC % (auto) 0 % 11/25/22 03:48 Nucleated RBCs # 0.0 /100WBC 11/25/22 03:48 Specimen Type Arterial 11/23/22 23:21 Sample Site Radial, left 11/23/22 23:21 ABG pH 7.36 (7.35-7.45) 11/23/22 23:21 ABG pCO2 48.6 mmHg (35-45) H 11/23/22 23:21 ABG pO2 67.6 mmHg (80.0-100.0) L 11/23/22 23:21 ABG HCO3 27.2 mmol/L (22-26) H 11/23/22 23:21 ABG Base Excess 1.2 mmol/L (-2.0-2.0) 11/23/22 23:21 Avila Test Pos 11/23/22 23:21 Hematocrit 31.6 % (42-52) L 11/23/22 23:21 O2 Delivery Device Nc 11/23/22 23:21 O2 Liters/Min 10.0 % 11/23/22 23:21 Kiln Operator ID Maria Elena 11/23/22 23:21 Sodium 141 mmol/L (136-145) 11/25/22 03:48 Potassium 4.4 mmol/L (3.5-5.1) 11/25/22 03:48 Chloride 102 mmol/L (98-107) 11/25/22 03:48 Carbon Dioxide 31 mmol/L (22-29) H 11/25/22 03:48 Anion Gap 12.4 (5-19) 11/25/22 03:48 BUN 19 mg/dL (8-23) 11/25/22 03:48 Creatinine 1.4 mg/dL (0.7-1.2) H 11/25/22 03:48 GFR Calculation 51.4 mL/min (90-130) L 11/25/22 03:48 Glucose 113 mg/dL (65-115) 11/25/22 03:48 POC Glucose 136 mg/dL (70-110) H 11/25/22 11:33 Estimat Average Glucose 154 11/23/22 23:20 Hemoglobin A1c 7.0 % (4.0-6.0) H 11/23/22 23:20 Calculated Osmolality 295 mOsm/kg (285-295) 11/25/22 03:48 Calcium 8.9 mg/dL (8.5-10.5) 11/25/22 03:48 Phosphorus 4.6 mg/dL (2.5-4.5) H 11/25/22 03:48 Magnesium 2.0 mg/dL (1.7-2.3) 11/25/22 03:48 Total Bilirubin 0.4 mg/dL (0.15-1.2) 11/23/22 23:20 AST 14 U/L (0-40) 11/23/22 23:20 ALT 9 U/L (0-41) 11/23/22 23:20 Alkaline Phosphatase 119 U/L (40-130) 11/23/22 23:20 Troponin T Baseline 62 ng/L (0-15) H 11/23/22 23:20 Troponin T 120 Minute 67.59 ng/L (0-15) H 11/24/22 01:03 Delta Troponin T 5.59 ABS# (0-10) 11/24/22 01:03 Troponin T Hi Sens 6Hr 69.39 ng/L (0-15) H 11/24/22 04:56 Troponin T Hi Sens 6Hr Delta 7.39 ng/L (0-12) 11/24/22 04:56 C-Reactive Protein 37.1 mg/L (0.0-4.9) H 11/24/22 01:03 NT-Pro-B Natriuret Pep 1689 pg/mL (0-125) H 11/24/22 01:03 Total Protein 7.4 g/dL (6.6-8.7) 11/23/22 23:20 Albumin 3.9 g/dL (3.5-5.2) 11/23/22 23:20 Globulin 3.5 g/dL (1.3-4.6) 11/23/22 23:20 Procalcitonin 0.29 ng/mL (0-0.5) 11/24/22 01:03 TSH 4.07 uIU/mL (0.27-4.20) 11/24/22 01:03 Urine Color Light yellow (Yellow) 11/24/22 01:35 Urine Appearance Clear (CLEAR) 11/24/22 01:35 Urine pH 5 (5-7) 11/24/22 01:35 Ur Specific [place] 1.005 (1.005-1.030) 11/24/22 01:35 Urine Protein Trace (Negative) 11/24/22 01:35 Urine Glucose (UA) 2+ (Normal) H 11/24/22 01:35 Urine Ketones Negative (Negative) 11/24/22 01:35 Urine Blood Neg (Negative) 11/24/22 01:35 Urine Nitrate Negative (Negative) 11/24/22 01:35 Urine Bilirubin Neg (Negative) 11/24/22 01:35 Urine Urobilinogen Neg mg/dL (Negative) 11/24/22 01:35 Ur Leukocyte Esterase Negative (Negative) 11/24/22 01:35 Urine RBC None /hpf (0-2) 11/24/22 01:35 Urine WBC None /hpf (0-5) 11/24/22 01:35 Ur Squamous Epith Cells None /hpf (0-5) 11/24/22 01:35 Amorphous Sediment Not Reportable 11/24/22 01:35 Urine Bacteria Trace /hpf (NONE) 11/24/22 01:35 Nasal Influ A H1 2008 PCR Not detected (NOT DETECT) 11/24/22 01:40 Adenovirus (PCR) Not detected (NOT DETECT) 11/24/22 01:40 C. pneumoniae DNA (PCR) Not detected (NOT DETECT) 11/24/22 01:40 Coronavirus 229E (PCR) Not detected (NOT DETECT) 11/24/22 01:40 Human Metapneumovir PCR Not detected (NOT DETECT) 11/24/22 01:40 Influenza A (H1) PCR Not detected (NOT DETECT) 11/24/22 01:40 Influenza A (H3) PCR Not detected (NOT DETECT) 11/24/22 01:40 Influenza Type A (PCR) Not detected (NOT DETECT) 11/24/22 01:40 Influenza Type B (PCR) Not detected (NOT DETECT) 11/24/22 01:40 M. pneumoniae (PCR) Not detected (NOT DETECT) 11/24/22 01:40 Parainfluenza 1 (PCR) Not detected (NOT DETECT) 11/24/22 01:40 Parainfluenza 2 (PCR) Not detected (NOT DETECT) 11/24/22 01:40 Parainfluenza 3 (PCR) Not detected (NOT DETECT) 11/24/22 01:40 Parainfluenza 4 (PCR) Not detected (NOT DETECT) 11/24/22 01:40 RSV Type A (PCR) Not detected (NOT DETECT) 11/24/22 01:40 RSV Type B (PCR) Not detected (NOT DETECT) 11/24/22 01:40 Entero/Rhino (PCR) Not detected (NOT DETECT) 11/24/22 01:40 SARS-CoV-2 (PCR) Not detected (NOT DETECT) 11/24/22 01:40 SARS-CoV-2 Ag (Rapid) negative (Negative) 11/24/22 00:12 Vitals Last Vital Signs Temp 97.9 F 11/25/22 13:14 Pulse 86 11/25/22 13:14 Resp 23 H 11/25/22 13:14 BP 145/78 11/25/22 13:14 Pulse Ox 92 11/25/22 13:14 O2 Del Method Nasal Cannula 11/25/22 12:00 O2 Flow Rate 6 11/25/22 12:00 FiO2 50 11/24/22 16:00 Discharge Plan Discharge Patient Disposition: Home Condition: Stable Prescriptions: Continued ipratropium-albuterol 0.5 mg-3 mg(2.5 mg base)/3 mL solution for nebulization 3 ml inhalation Q4H PRN (Reason: wheezing) Qty: 180 6RF ipratropium-albuterol 0.5 mg-3 mg(2.5 mg base)/3 mL solution for nebulization 3 ml INHALATION BID PRN (Reason: Shortness Of Breath) rosuvastatin 20 mg tablet 20 mg PO DAILY Qty: 30 2RF trazodone 100 mg tablet 100 mg PO BEDTIME Qty: 30 2RF Anoro Ellipta 62.5-25 mcg/actuation blister with device 1 inh inhalation Q24H Qty: 60 2RF venlafaxine [Effexor XR] 150 mg capsule,extended release 24hr 150 mg PO QAM Qty: 30 2RF buspirone 15 mg tablet 15 mg PO BID Qty: 60 2RF cetirizine 10 mg tablet 10 mg PO DAILY Qty: 30 2RF Tresiba FlexTouch U-100 100 unit/mL (3 mL) insulin pen See Rx Instructions SUBCUT DAILY Qty: 50 2RF Rx Instructions: 35 units subcutaneously daily levothyroxine 175 mcg tablet 175 mcg PO DAILY Qty: 30 2RF Victoza 3-Leonides 0.6 mg/0.1 mL (18 mg/3 mL) pen injector 1.8 mg SUBCUT Q24H Qty: 9 2RF montelukast [Singulair] 10 mg tablet 10 mg PO DAILY Qty: 30 2RF Farxiga 5 mg tablet 5 mg PO QAM Qty: 30 2RF amlodipine 10 mg tablet 10 mg PO DAILY Qty: 90 3RF Rx Instructions: Must be seen for further refills colesevelam [WelChol] 625 mg tablet 1,875 mg PO BID Qty: 540 3RF hydralazine 100 mg tablet 100 mg PO TID Qty: 270 3RF potassium chloride 20 mEq tablet extended release 20 meq PO BID Qty: 180 3RF Hold Instructions: Resume on 04/15/22. (DME) pen needle, diabetic [TechLITE Pen Needle] 31 gauge x 5/16 needle See Rx Instructions .ROUTE .MEDSUPPLY Qty: 100 5RF Rx Instructions: Three times a day Xarelto 20 mg tablet 20 mg PO DAILY Qty: 90 3RF Rx Instructions: must administer with a meal/food amiodarone 200 mg tablet 200 mg PO DAILY Qty: 90 3RF ferrous gluconate 324 mg (38 mg iron) tablet 324 mg PO BID Qty: 60 2RF (DME) Oxygen Pendant See Rx Instructions .Route .MEDSUPPLY Qty: 1 0RF Rx Instructions: As directed bumetanide 2 mg tablet 2 mg PO BID Qty: 60 6RF fenofibrate nanocrystallized 145 mg tablet 145 mg PO BEDTIME ascorbic acid (vitamin C) 500 mg tablet 500 mg PO DAILY Qty: 30 0RF Discharge Orders: Discharge Order (Routine); Ordered 11/25/22 Ordered By: Alexsander Last Referrals: Jeremiah Griffin, DESIGN MAINTENANCE ENGINEER-C [Primary Care Provider] - (Please call Jeremiah Griffin's Office on Sunday at [phone] to schedule a follow up appointment. Thank you.) Patient Instructions: Heart Failure (DC), CHF Stoplight, Opioid Safety Discharge Attestations Time Spent in Discharge Care*: greater than 30 min Status at Discharge: Cognitive status at discharge: cognitively intact , Behavioral status at discharge: cooperative , Quality Metrics Clinical Quality Measures [ No reported AMI, CVA or VTE this stay] Coding Level of Care Code Acute Code for Chg Fwd Total time (in minutes) for Discharge: 33 Diagnoses Morbid obesity with BMI of 50.0-59.9, adult E66.01; Z68.43 Hypothyroidism E03.9 CKD (chronic kidney disease) stage 3, GFR 30-59 ml/min N18.30 EDGAR (obstructive sleep apnea) G47.33 Chronic respiratory failure J96.10 Chronic diastolic (congestive) heart failure I50.32 Diastolic CHF, acute on chronic I50.33 Fluid overload E87.70 Afib I48.91 Obesity hypoventilation syndrome E66.2 Small airways disease J98.4 Nicotine dependence, cigarettes, uncomplicated F17.210 Chronic anticoagulation Z79.01
== END 2022-11-25 13:36 | disposition home or self-care (01) | DRG 291 ==
LOC: ER 11-24 00:37 → CSU 11-24 01:16
PROVIDERS: Admitting Provider Family Medicine; Emergency Provider Emergency Medicine; PCP Nurse Practitioner; Visit Provider Family Medicine
DX: I13.0 Hypertensive heart and chronic kidney disease with heart failure and stage 1 through stage 4 chronic kidney disease, or unspecified chronic kidney disease (principal); I50.33 Acute on chronic diastolic (congestive) heart failure; E66.2 Morbid (severe) obesity with alveolar hypoventilation; Z68.43 Body mass index [BMI] 50.0-59.9, adult; I48.20 Chronic atrial fibrillation, unspecified; E11.22 Type 2 diabetes mellitus with diabetic chronic kidney disease; J44.9 Chronic obstructive pulmonary disease, unspecified; Z79.01 Long term (current) use of anticoagulants; Z99.81 Dependence on supplemental oxygen; Z79.85 Long-term (current) use of injectable non-insulin antidiabetic drugs; F41.9 Anxiety disorder, unspecified; E78.5 Hyperlipidemia, unspecified; E03.9 Hypothyroidism, unspecified; Z86.14 Personal history of Methicillin resistant Staphylococcus aureus infection; I25.2 Old myocardial infarction; Z87.01 Personal history of pneumonia (recurrent); Z87.891 Personal history of nicotine dependence; N18.30 Chronic kidney disease, stage 3 unspecified
CPT/HCPCS: 36415; 36416; 36600; 51702; 71045; 80048; 80053; 81001; 81015; 82803; 82962; 83036; 83735; 83880; 84100; 84145; 84443; 84484; 85025; 86140; 87040; 87426; 87486; 87581; 87633; 93005; 94640; 94660; 94664; 96372; 96374; 96376; 99291; C9113; J1815; J1940; J3490

== ENCOUNTER → 2022-11-28 10:20 | Outpatient (BNVA) | payer MEDICARE, MEDICAID, SELFPAY | PROVIDERS: PCP Nurse Practitioner; Visit Provider Internal Medicine Cardiovascular Disease | DX: I13.0 Hypertensive heart and chronic kidney disease with heart failure and stage 1 through stage 4 chronic kidney disease, or unspecified chronic kidney disease (principal); E11.22 Type 2 diabetes mellitus with diabetic chronic kidney disease; E11.65 Type 2 diabetes mellitus with hyperglycemia; Z79.4 Long term (current) use of insulin; I50.32 Chronic diastolic (congestive) heart failure; N18.30 Chronic kidney disease, stage 3 unspecified; Z87.891 Personal history of nicotine dependence; E66.2 Morbid (severe) obesity with alveolar hypoventilation; Z68.43 Body mass index [BMI] 50.0-59.9, adult; E03.9 Hypothyroidism, unspecified; J96.20 Acute and chronic respiratory failure, unspecified whether with hypoxia or hypercapnia | CPT/HCPCS: 99215 ==

== ENCOUNTER 2022-12-15 09:12 | Observation (INO) | payer MEDICARE, MEDICAID, SELFPAY ==
[2022-12-15] VITALS (17 sets, daily range): BP systolic 129–155; BP diastolic 73–93; PULSE 66–89; RESP 15–25; TEMP 36.8; O2SAT 85–96; BMI 50.9
--- NOTE | 2022-12-15 06:17 | XACV_ITS ---
Exam Room: 2 Ht: 180 cm Wt: 166 kg BSA: 2.97 m2 Gender: Male : 1960 Any Known Allergies: No known allergies Exam Priority: Routine Procedure(s): Procedure Description: Diagnostic procedure Procedure Description: Left Heart Catheterization Procedure Description: Right Heart Catheterization Procedure Description: O2 saturation Procedure Description: Coronary Angiography Procedure Description: Pressure Wire Stephen AYALA; Diagnostic Cath Status: Elective Diagnostic Findings * The left main is a medium caliber elongated vessel with minimal tubular narrowing distally of around 10 to 20%. * The left anterior descending artery is a medium caliber vessel which was found to be tapering out to its the LV apex. The artery gives off a high diagonal branch which has proximal 50 to 60% tubular narrowing. Mid and distal LAD was found to have mild diffuse intimal irregularities. * The left circumflex artery is a medium caliber vessel which appears to have a tapering narrowing of around 40% with the origin of the first obtuse marginal branch. The first obtuse marginal artery was found to have a 90 degree takeoff. The ostium of the artery was found to have around 60 to 70% stenosis. The mid and distal circumflex artery was found to have mild diffuse narrowing. No significant stenotic lesions were seen. * The right coronary artery is a large dominant vessel which was found to have 20 to 30% diffuse irregular narrowing in the proximal segments of the PDA and the PLV branches. No significant stenotic lesions were noted. Mild diffuse calcification was noted in the proximal segments of all the 3 coronary arteries.. PCI Status: Elective Interventional Findings * I was asked to perform IFR on the LAD and circumflex. The IFR of the mid LAD is 0.94. The circumflex is a nearly impossible placement of the wire. There is a greater than 90 degree turn to the circumflex proper and then another 90 degree turn in the other direction to the obtuse marginal. The first wire was placed into the marginal branch with a great deal of luck. The wire then malfunctioned. I was never able to get another wire into the vessel so the procedure was stopped. Conclusions 1. 63-year-old white male with a history of hypertension, diabetes, dyslipidemia, COPD, obstructive sleep apnea, morbid obesity, presenting with recurrent episodes of decompensated heart failure. He had a preserved LV ejection fraction. He was found to extensive coronary calcification by CTA. He also has intermittent atrial fibrillation. In view of his recurrent decompensated heart failure and the abnormal CT findings, in order to further evaluate his coronary status, a cardiac catheterization was recommended. Patient underwent left and right heart catheterization with left and right coronary angiogram today. The findings are as follows. 2. 1. Left main is an elongated vessel with a tapering distal narrowing of 20%. 2. 50 to 60% tubular narrowing in the proximal segment of the first diagonal branch of the left anterior descending artery. Mild diffuse disease in the LAD. 3. Around 70% stenosis of the ostium of the first obtuse marginal branch of the circumflex artery. 4. Large dominant right coronary artery with mild diffuse disease. #5 severe pulmonary hypertension with a pulmonary artery mean pressure of 51 mmHg. Equalization of the diastolic pressures in the cardiac chambers, could suggest severe diastolic dysfunction versus a constrictive physiology. In the absence of any significant pericardial disease, most likely this is related to severe diastolic dysfunction. 3. I reviewed and discussed the cardiac catheterization data with the Dr. Philip. It was thought to be appropriate to consider FFR of the diagonal and the obtuse marginal lesions. Dr. Philip concurred with this plan and took over further management this patient at this point. Recommendations * The FFR was within normal limits in the diagonal lesion. Apparently there was difficulty in passing the wire into the obtuse marginal lesion .. So it was decided to leave it alone for the time being and try to optimize the medical treatment.. Diagnostic RX Recommendation: other cardiac therapy w/o CABG/PCI LV EDP: 35 mmHg Left Ventriculography Findings: * The LV gram was not performed because of the patient's chronic kidney disease. The PA pressure was 76/39 with a mean of 51 mmHg. The RV pressure was 77/21, right atrial pressure 34 mmHg. Pulmonary capillary wedge pressure was 37 mmHg and LVEDP was 35 mmHg. The patient was on 100% rebreather mask during the right heart catheterization. The cardiac output measurement based on the Hilario's could be misleading.. Pressures Phase:Rest AO : 109 / 82 ( 96 ) @ 9:02:00 AM 109 / 82 ( 95 ) @ 9:04:00 AM 114 / 88 ( 101 ) @ 9:07:00 AM 138 / 80 ( 107 ) @ 9:12:00 AM 138 / 79 ( 105 ) @ 9:12:00 AM 125 / 91 ( 108 ) @ 9:14:00 AM 131 / 97 ( 114 ) @ 9:16:00 AM 132 / 86 ( 108 ) @ 9:28:00 AM 129 / 83 ( 105 ) @ 9:29:00 AM 140 / 77 ( 104 ) @ 9:33:00 AM 126 / 83 ( 104 ) @ 9:52:00 AM LV : 149 / 11 / 35 @ 9:12:00 AM 150 / 8 / 35 @ 9:12:00 AM RV : 69 / 15 / 30 @ 8:52:00 AM 77 / 21 / 34 @ 8:53:00 AM PA : 76 / 39 ( 51 ) @ 8:49:00 AM RA : a wave = 36 v wave = 39 mean = 34 @ 8:54:00 AM PCW : a wave = 39 v wave = 49 mean = 37 @ 8:50:00 AM Saturations Phase:Rest AO : 90 @ 9:52:00 AM RA : 66 @ 9:28:00 AM RV : 65 @ 9:29:00 AM Cardiac Output Phase:Rest Hilario : 10 @ 9:00:41 AM Hilario Cardiac Index: 4 @ 9:00:41 AM Flow Phase:Rest Qs : 10 @ 9:00:41 AM Valves Phase:DefaultPhase AV : 8.0 @ 9:00:41 AM 8.0 @ 9:00:41 AM AV Mean Gradient: 10.0 @ 9:00:41 AM 10.0 @ 9:00:41 AM AV Flow: 475 @ 9:00:41 AM AV Area: 3.4 @ 9:00:41 AM AV Area Index: 1.25 @ 9:00:41 AM Clinical Evaluation EBL: 5mL-10mL Procedural Details Procedure Consent Obtained. Pre-Procedure Time Out. Identified patient by full name and date of as verbalized by the patient/guarantor. Does the consent match the physician's order: Yes. Accurate & Complete Informed Consent: Yes. Inpatient/Outpatient History & Physical on Chart: Yes. If H&P is completed, is and addenduem needed: No; If yes, is the addendum complete: N/A. Visualize and Verify Site with Patient/Guarantor: N/A. Relevant Radiology Images available: Yes. Pre-op teaching completed and patient verbalized understanding. The risks, benefits, and alternatives of sedation and/or procedure were discussed by physician. The patient agrees to continue. Procedure started. [facility] Clinical Fraility Score: 4: Vulnerable. Saddle And Side Wire Stitcher Indications: Other. Chest Pain Symptom Assessment: Atypical Angina. Correct patient, site and procedure confirmed by cath team. PERRLA. 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 Lungs clear x 5 lobes. IV Site on Arrival: 20 gauge in the right anticubital. IV Site on Arrival: 20 gauge in the left anticubital. IV Fluids: 0.9% NaCl at KVO. 0 mL infused prior to vat house laborer. Pre Procedural Pulses: bilateral dorsalis pedis was Doppled. Pre Procedural Pulses: bilateral posterior tibial was Doppled. Pre Procedural Pulses: right radial was 3+. Oxygen started at 5liters/min via nasal canula. right groin was prepped with chloroprep then draped in the usual sterile fashion. right radial was prepped with chloroprep then draped in the usual sterile fashion. right brachial was prepped with chloroprep then draped in the usual sterile fashion. Physician notified. Baseline sample Acquired. HR: 86 BPM. Physician arrived. Respiratory called to perform a breathing treatment. Anesthesia arrived. Respiratory arrived. Physician scrubbed in. Immediate Pre-Procedure Time Out. Correct Patient: Yes; Correct Procedure: Yes; Correct Site: Yes; Correct Patient Position: Yes; Correct Supplies: Yes; Dried Flammable Prep: Yes; Blood Products Available: N/A;. Lidocaine 1% infiltrated to the right brachial. Sheath wire inserted through the right brachial IV catheter. IV catheter out OTW. Landenberg-Walker MON catheter inserted. Oximetry samples were obtained. Normal venous range: 60-85%. Normal arterial range: 95-100%. Pressure measurements obtained. Landenberg-Walker out. Lidocaine 1% infiltrated to the right radial. Arterial access obtained. A 5 martiniquais Mike catheter in over wire. Multiple views taken of left coronary artery. Dr. Philip reviewing films. Dr. Mitchell consulting with Dr. Philip. EDP Sample taken: LV 149/11,35; HR: 80 BPM; SpO2: 89%. Pullback taken: LV 150/8,35; AO 138/80(107); Mean: 10mmHg, Peak to Peak: 8mmHg, SEP: 21sec/min; HR: 82 BPM; SpO2: 89%. Catheter removed over the exchange wire. A 5 martiniquais JR4 catheter in over wire. Multiple views taken of right coronary artery. Catheter removed over the exchange wire. Physician scrubbed out. Dr. Philip scrubbed in. IFR guidewire was advanced through the guide catheter to lesion in the LAD. Multiple views taken of left coronary artery. IFR Results: 0.94. Wire be redirected to the CX. Wire removed to reshape the tip. IFR reinserted and advanced to the CX. Wire out due to an error msg on IFR machine. A new IFR wire inserted through the catheter and advanced to the CX. Wire removed to reshape the tip. IFR reinserted and advanced to the CX. Wire out. Guide catheter out. A TR Band was successful obtaining hemostatsis at the Right Radial artery insertion site. A Manual Compression was successful obtaining hemostatsis at the Right Brachial Vein insertion site. Post Procedure: Pulses reassessed and unchanged. PERRLA. 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 No VTE prophylaxis required. Medication's Wasted: Nitro = 49.8 mcg. Medication's Wasted: Lidocaine 1% = 2 mL. Total IV fluids: 34 mL. Complications: None. Estimated blood loss: 5mL-10mL. Responsiveness - Normal response to verbal stimuli; alert and oriented, PERRLA. Airway - Unaffected, no intervention required; spontaneous ventilation. Circulation: W/N/L, pulses unchanged. Nausea/Vomiting: No. Procedure completed. Patient transferred by bed to ICU. Vital chart was stopped. Access Site Site: Right Brachial Vein Sheath Size: 6 Fr Hemostasis Method: Manual Compression Hemostasis Success: Successful Site: Right Radial artery Sheath Size: 6 Fr Hemostasis Method: TR Band Hemostasis Success: Successful Procedure Medications Start: 7:21 AM Stop: 7:21 AM Medication: 0.9% Saline Amount: 250 ml Route: I.V. bolus Start: 7:59 AM Stop: 7:59 AM Medication: Nitrogylcerin Amount: 200 mcg Route: I.A. Start: 7:59 AM Stop: 7:59 AM Medication: Verapamil Amount: 5 mg Route: I.A. Start: 8:01 AM Stop: 8:01 AM Medication: Heparin Amount: 5000 units Route: I.V. I, the attending physician, have reviewed and verified all procedure medications. Yes, all medications given per verbal order History/Risk Factors Hypertension: Yes Dyslipidemia: Yes Peripheral Arterial Disease (PAD): No Myocardial Infarction (TX): Yes Obesity: Yes Renal Disease: No Tobacco Use: Former Prior Interventions PCI: No CABG: No Valve Surgery: No Report Signatures Diagnostic Workflow Finalized by Dr Fiona Mitchell MD [facility] on 12/15/2022 11:31 AM Interventional Workflow Finalized by Dr. Miguel Philip MD on 12/15/2022 09:04 AM
[2022-12-15 06:38] LABS: Basophils # 0.1 10^3/uL (0.0-0.1); Basophils % 0.6 %; Eosinophils # 0.9 10^3/uL (0.0-0.8); Hematocrit 35.1 % (37-53); Lymphocytes % 24.4 %; Mean Corpuscular HGB Conc 29.6 g/dL (30-55); Mean Corpuscular Volume 94.6 fl (82-101); Mean Platelet Volume 9.8 fL (7.4-10.4); Monocytes # 0.9 10^3/uL (0.2-0.9); Monocytes % 7.1 %; Neutrophils # 7.46 10^3/uL (1.8-7.7); Neutrophils % 60.4 %; Nucleated Red Blood Cells % 0 %; Platelet Count 283 10^3/cmm (157-399); Red Blood Count 3.71 10^6/uL (3.85-5.65); Red Cell Distribution Width 16.2 % (12.1-15.1); White Blood Count 12.36 10^3/uL (3.29-11.43)
[2022-12-15 06:41] LABS: INR 1.07 (0.8-1.2)
[2022-12-15] MEDS: aspirin 325 mg Tablet PO (06:41)
[2022-12-15] MEDS: diphenhydrAMINE 50 mg Capsule PO (06:41)
[2022-12-15 06:46] LABS: Anion Gap 11.8 (5-19); Blood Urea Nitrogen 27 mg/dL (8-23); Calcium 9.2 mg/dL (8.5-10.5); Carbon Dioxide 29 mmol/L (22-29); Chloride 105 mmol/L (98-107); Glomerular Filtration Rate 51.4 mL/min (90-130); Glucose 137 mg/dL (65-115); Osmolality Calculated 299 mOsm/kg (285-295); Potassium 4.8 mmol/L (3.5-5.1); Sodium 141 mmol/L (136-145)
--- NOTE | 2022-12-15 07:17 | P.HPUD_ITS ---
Surgery/Procedure H&P Update DATE OF PROCEDURE: December 15, 2022 DATE H&P PERFORMED: 11/28/22 H&P UPDATE INFORMATION: I have reviewed H&P completed within last 30 days, I have examined patient prior to procedure and No changes to prior documentation CHANGES TO PREVIOUS DOCUMENTATION: The breath sounds are diminished in the bases PREOP DIAGNOSIS: ASHD PRIMARY INDICATION FOR PROCEDURE: Recurrent CHF, coronary ateroserosis PLANNED PROCEDURE: Operation Date: 12/15/22 07:00 Proposed Procedures p [facility] [id number],R55,I50.9(Left) - Fiona Mitchell MD PATIENT REASSESSED PRIOR TO SEDATION, WITH NO CHANGE NOTED: Yes PHYSICAL EXAM: alert, oriented x 3, clear to auscultation bilaterally and regular rate & rhythm AIRWAY EVAL/ANESTHESIA PLAN: normal airway, see other exam findings, ASA IV, Monitored Anesthesia, Local Anesthesia, Risks, benefits & alternatives of sedation and/or procedure discussed and Patient agrees to continue as planned
[2022-12-15] MEDS: ipratropium-albuterol 3 mL Neb INHALATION ×3 (07:47→15:26)
[2022-12-15 08:05] LABS: Alveolar-Arterial Oxygen Gradi 5.2 mmHg (5-10); Arterial Blood Gas Hematocrit 27.1 % (42-52); Blood Gas Allen Test Pos; Blood Gas Operator Identificat MONRO; Blood Gas Sample Site RA; Blood Gas Sample Type Arterial; Carboxyhemoglobin 2.3 %THgb (0.4-20.1); HGB O2 Sat 64.3 % (95-100); Methemoglobin 0.6 % (0.4-1.5); Oxygen Device ROOM AIR; Total Hemoglobin 8.8 g/dL (14-18)
[2022-12-15 08:06] LABS: Arterial Blood Gas Hematocrit 29.3 % (42-52); Blood Gas Allen Test Pos; Blood Gas Sample Site RV; Blood Gas Sample Type Arterial; Carboxyhemoglobin 2.2 %THgb (0.4-20.1); HGB O2 Sat 63.2 % (95-100); Methemoglobin 0.6 % (0.4-1.5); Total Hemoglobin 9.6 g/dL (14-18)
[2022-12-15 08:08] LABS: Arterial Blood Gas Hematocrit 12.6 % (42-52); Blood Gas Allen Test Pos; Blood Gas Operator Identificat MONRO; Blood Gas Sample Site PA; Blood Gas Sample Type Arterial; Carboxyhemoglobin 2.4 %THgb (0.4-20.1); HGB O2 Sat 97.1 % (95-100); Methemoglobin 0.8 % (0.4-1.5); Total Hemoglobin 4.1 g/dL (14-18)
[2022-12-15 08:10] LABS: Alveolar-Arterial Oxygen Gradi 2.6 mmHg (5-10); Arterial Blood Gas Hematocrit 28.3 % (42-52); Blood Gas Allen Test Pos; Blood Gas Operator Identificat MONRO; Blood Gas Sample Site AO; Blood Gas Sample Type Arterial; Carboxyhemoglobin 2.3 %THgb (0.4-20.1); HGB O2 Sat 87.8 % (95-100); Methemoglobin 0.5 % (0.4-1.5); Total Hemoglobin 9.2 g/dL (14-18)
--- NOTE | 2022-12-15 09:55 | XR_ITS ---
WS: [id number] Exam: XR chest 1V portable [id number] Date/Time of Exam: 12/15/2022 10:08 AM Reason For Exam: sob Comparison 11/23/2022. There is cardiac enlargement with pulmonary vascular congestion suggesting CHF. No consolidated infi ltrates are seen. The mediastinum is normal in contour. Bony structures are intact. IMPRESSION: 1. Cardiac enlargement with signs of low-grade CHF.
--- NOTE | 2022-12-15 09:55 | ANES.PREANE2 ---
Pre-Anesthetic Assessment Height/Weight: Height 1.8 m Weight 165.561 kg Temp Pulse Resp BP Pulse Ox O2 Del Method O2 Flow Rate 98.3 F 89 22 H 148/73 85 L Oxymask 15 12/15/22 06:20 12/15/22 07:49 12/15/22 07:40 12/15/22 06:20 12/15/22 07:40 12/15/22 07:40 12/15/22 07:40 Preop Diagnosis: ASHD Operation Date: 12/15/22 07:00 Proposed Procedures p [facility] [id number],R55,I50.9(Left) - Fiona Mitchell MD Familial anesthetic complications: none Was Beta Jorge taken within 24 hours: N/A Was Clonidine taken within 24 hours: N/A Social Tobacco and No alcohol Exam alert, oriented x 3 and clear to auscultation bilaterally Airway Submandibular: within normal limits Cervical ROM: within normal limits Mallampati: Class III Dentition: false Pulmonary Chronic Obstructive Pulmonary Disease and Sleep Apnea CV/HEM Atrial Fibrillation, Anemia, Congestive Heart Failure and Hypertension Chronic Renal Insufficiency GI Gastroesophageal Reflux Disease Metabolic Diabetes Mellitus, Hyperlipidemia, Morbid Obesity and Thyroid Disease [facility] Lower Back Pain and Osteoarthritis/DJD Anesthetic Plan ASA status: 4 Anesthesia: Choice Medications/Allergies Home Medications Medication Instructions Recorded Confirmed Last Taken Type amlodipine 10 mg tablet 10 mg PO DAILY #90 tabs 01/03/22 12/11/22 12/14/22 09:00 Rx colesevelam 625 mg tablet (WelChol) 1,875 mg PO BID #540 tabs 01/03/22 12/11/22 11/23/22 08:00 Rx hydralazine 100 mg tablet 100 mg PO TID #270 tabs 01/03/22 12/15/22 12/14/22 19:00 Rx potassium chloride 20 mEq 20 meq PO BID #180 tabs 01/03/22 12/15/22 12/14/22 19:00 Rx tablet,extended release pen needle, diabetic 31 gauge x #100 ea 01/27/22 12/11/22 Unknown Rx 5/16 (TechLITE Pen Needle) fenofibrate nanocrystallized 145 145 mg PO BEDTIME 04/06/22 12/15/22 12/14/22 19:00 History mg tablet ascorbic acid (vitamin C) 500 mg 500 mg PO DAILY #30 tabs 04/08/22 12/15/22 12/14/22 09:00 Rx tablet amiodarone 200 mg tablet 200 mg PO DAILY #90 tabs 07/06/22 12/11/22 12/14/22 09:00 Rx rivaroxaban 20 mg tablet (Xarelto) 20 mg PO DAILY #90 tabs 07/06/22 12/11/22 12/14/22 09:00 Rx venlafaxine 150 mg 150 mg PO QAM #30 caps 08/08/22 12/15/22 12/14/22 09:00 Rx capsule,extended release 24 hr (Effexor XR) ipratropium 0.5 mg-albuterol 3 mg 3 ml inhalation Q4H PRN wheezing 10/16/22 12/11/22 11/23/22 21:00 Rx (2.5 mg base)/3 mL nebulization #180 mL soln Oxygen Pendant #1 ea 10/20/22 12/11/22 Unknown Rx buspirone 15 mg tablet 15 mg PO BID #60 tabs 10/31/22 12/11/22 11/23/22 20:00 Rx cetirizine 10 mg tablet 10 mg PO DAILY #30 tabs 10/31/22 12/11/22 12/14/22 09:00 Rx dapagliflozin propanediol 5 mg 5 mg PO QAM #30 tabs 10/31/22 12/11/22 12/14/22 09:00 Rx tablet (Farxiga) insulin degludec 100 unit/mL (3 See Rx Instructions SUBCUT DAILY 10/31/22 12/15/22 12/14/22 09:00 Rx mL) subcutaneous pen (Tresiba #50 mL FlexTouch U-100 insulin) levothyroxine 175 mcg tablet 175 mcg PO DAILY #30 tabs 10/31/22 12/11/22 12/14/22 09:00 Rx liraglutide 0.6 mg/0.1 mL (18 mg/3 1.8 mg (0.3 mL) SUBCUT Q24H #9 mL 10/31/22 12/15/22 12/14/22 09:00 Rx mL) subcutaneous pen injector (Victoza 3-Leonides) montelukast 10 mg tablet 10 mg PO DAILY #30 tabs 10/31/22 12/15/22 12/14/22 19:00 Rx (Singulair) bumetanide 2 mg tablet 2 mg PO BID #60 tabs 11/24/22 12/11/22 12/14/22 09:00 Rx ferrous gluconate 324 mg (38 mg 324 mg PO BID #60 tabs 11/30/22 12/11/22 12/14/22 09:00 Rx iron) tablet rosuvastatin 20 mg tablet 20 mg PO DAILY #30 tabs 11/30/22 12/11/22 12/14/22 09:00 Rx trazodone 100 mg tablet 100 mg PO BEDTIME #30 tabs 11/30/22 12/15/22 12/14/22 19:00 Rx umeclidinium 62.5 mcg-vilanterol 1 inh inhalation Q24H #60 ea 11/30/22 12/11/22 Unknown Rx 25 mcg/actuation powdr for inhalation (Anoro Ellipta) Allergies Allergy/AdvReac Type Severity Reaction Status Date / Time No Known Allergies Allergy Verified 11/30/22 10:06 Current Medications Generic Name Dose Route Start Last Admin Trade Name Freq PRN Reason Stop Dose Admin Sodium Chloride 1,000 mls @ 50 mls/hr 12/15/22 06:17 12/15/22 06:41 Sodium Chloride 0.9% IV 12/16/22 02:16 Not Given .Q20H ONE PFSH Anesthesia Medical History Acquired lymphedema Acute diastolic heart failure Acute exacerbation of chronic obstructive airways disease Acute respiratory failure with hypercapnia Afib Allergic rhinitis due to pollen Anemia Anxiety Chronic atrial fibrillation with rapid ventricular response Chronic diastolic (congestive) heart failure Chronic kidney disease Chronic respiratory failure CKD (chronic kidney disease) stage 3, GFR 30-59 ml/min Congestive heart failure Diabetes mellitus with hyperglycemia, with long-term current use of insulin Elevated INR Essential (primary) hypertension GERD (gastroesophageal reflux disease) Hyperlipemia Hypothyroidism Hypoxia, sleep related Leukocytosis Morbid obesity with BMI of 50.0-59.9, adult MRSA infection NSTEMI (non-ST elevated myocardial infarction) Obesity hypoventilation syndrome EDGAR (obstructive sleep apnea) Pneumonia, unspecified organism Surgical History H/O esophagogastroduodenoscopy (02/18/21) History of bilateral cataract extraction 2019 and 2020 History of colonoscopy (02/18/21) History of gangrene Left buttocks requiring surgery May 2014 Family History Father Cancer Mother Heart disease CAD (coronary artery disease) Diabetes Heart attack Stroke Brother Heart attack Clotting disorder Stroke Sister Stroke Denies family history of Dementia Chronic kidney disease (CKD) Suicide Anesthesia complication Bleeding disorder Lung disease Social History Smoking and tobacco status: former smoker Quit status (tobacco): has quit using tobacco Year quit tobacco: 6 weeks ago Second hand smoke exposure: Yes Smoking risk assessment/counseling performed?: Yes Alcohol intake: former Year of sobriety/quit date alcohol: 1992 Desire information about alcohol rehabilitation?: No Counseling given: No Substance/Drug Use: never Desire information about substance/drug rehabilitation?: No Counseling given: No Adopted: No Caregiver/support person: No Lives independently: Yes Household members: spouse Housing: House Marital status: service: No Current occupational status: disabled Pets and animals: Yes Do you think of yourself as: Straight/Heterosexual Current gender identity: Male Data Anesthesia 12/15/22 06:18 12/15/22 06:18 Short CBC 12/15/22 Range/Units 06:18 WBC 12.36 H (3.29-11.43) 10^3/uL Hgb 10.40 L (11.27-16.99) g/dL Hct 35.1 L (37-53) % MCV 94.6 (82-101) fl Plt Count 283 (157-399) 10^3/cmm Neut % (Auto) 60.4 % Neut # (Auto) 7.46 (1.8-7.7) 10^3/uL BMP 12/15/22 06:18 Sodium 141 Potassium 4.8 Chloride 105 Carbon Dioxide 29 BUN 27 H Creatinine 1.4 H Glucose 137 H Calcium 9.2 Coags 12/15/22 06:18 PT 14.20 INR 1.07 ABG 12/15/22 12/15/22 12/15/22 07:51 07:53 07:55 Specimen Type Arterial Arterial Arterial Sample Site Ra Rv Pa A-a O2 Gradient 5.2 5.0 O2 Delivery Device Room air 12/15/22 07:58 Specimen Type Arterial Sample Site Ao A-a O2 Gradient 2.6 L O2 Delivery Device Cardiac Studies: Echocardiogram 04/06/22
--- NOTE | 2022-12-15 09:57 | ANE.PACU2 ---
Inpatient post-anesthesia follow up: Airway intact: Yes Vital signs: Temperature 98.3 F Pulse Rate 89 Respiratory Rate 22 Blood Pressure 148/73 Pulse Oximetry 85 Oxygen Delivery Me thod Oxymask Oxygen Flow Rate 15 Fraction of Inspir ed Oxygen Hydration adequate: Yes Nausea and vomiting: No Pain level: 2 Mental status: Baseline
[2022-12-15 10:32] LABS: NT Pro B Type Natriuretic Pept 852 pg/mL (0-125); Procalcitonin 0.31 ng/mL (0-0.5)
[2022-12-15] MEDS: levothyroxine 175 mcg Tablet PO (10:34)
[2022-12-15] MEDS: potassium chloride ER 20 mEq Tablet PO (10:34)
[2022-12-15] MEDS: hyDRALAzine 50 mg Tablet 100 MG PO ×2 (10:35→15:05)
[2022-12-15] MEDS: ferrous gluconate 324 mg Tablet PO ×2 (10:35→17:37)
[2022-12-15] MEDS: bumetanide 1 mg Tablet 2 MG PO (10:35)
[2022-12-15] MEDS: atorvastatin 40 mg Tablet 80 MG PO (10:35)
[2022-12-15] MEDS: amlodipine 10 mg Tablet PO (10:35)
[2022-12-15] MEDS: BuSPIRONE 10 mg Tablet 15 MG PO ×2 (10:35→17:37)
[2022-12-15] MEDS: ascorbic acid 500 mg Tablet PO (10:35)
[2022-12-15] MEDS: montelukast sodium 10 mg Tablet PO (10:35)
[2022-12-15] MEDS: amiodarone 200 mg Tablet PO (10:35)
[2022-12-15] MEDS: cetirizine 10 mg Tablet PO (10:35)
--- NOTE | 2022-12-15 11:16 | P.PNCC_ITS ---
Critical Care Event Note The high probability of a clinically significant, sudden or life threatening deterioration of the patient's [] system(s) required my full and direct attention, intervention and personal management. The critical care time is as shown. This time is in addition to time spent performing any reported procedures but includes the following: [x] Data and vital sign review and interpretation [x] Patient assessment, examination and intervention [x] Documentation [x] Medication orders and management Critical Care Time Code activated: No Critical Care Time (min): 30 Additional information about critical care time: Patient had returned from [facility] -Was in acute respiratory failure, tachypnea, tachycardia, nasal flaring, intercostal retractions, on 60 L, nonrebreather - at bedside -Patient has a history of COPD, small airway disease, chronically on trilogy -Is receiving fluids -Place patient on BiPAP therapy, spoke to respiratory therapy, -Order chest x-ray, reviewed blood work -Has a history of CHF, EDGAR -Reexamined on BiPAP, resting more comfortably, no evidence of respiratory distress at this point, still tachypneic, no intercostal retractions, no nasal flaring -We will continue p.o. Bumex, is on fluids after [facility] -Spoke to Dr. Mitchell, will be consulted for respiratory failure -Spoke to patient's at bedside Coding Level of Care Code Acute Code for Chg Ludy
--- NOTE | 2022-12-15 12:58 | P.CONIM_ITS ---
Providers/Reason For Consult Consulting Physician/Specialty*: Cardiology Reason for Consult*: Acute respiratory failure Attending Physician: Fiona Mitchell MD Primary Care Provider: YONATHAN Samuel History of Present Illness History of Present Illness Jluius Dunalp is a 62 year old male with a past medical history of insulin- dependent type 2 diabetes mellitus, morbid obesity, history of small airway disease, history of obesity hypoventilation syndrome, COPD, diastolic CHF, atrial fibrillation on Xarelto, who presents to [facility] for a coronary angiography, currently in ICU, status post cath, patient was seen in the ICU as he was in respiratory distress, on 16 L nonrebreather, tachypneic, tachycardic, nasal flaring, intercostal retractions, at bedside, patient has a home trilogy machine but does not have it currently, he denies any chest pain, no fevers, no cough, he takes Bumex at home is not sure of the dose, he does tell me that he took it last night, patient was seen with respiratory therapy at bedside, placed on BiPAP, reexamined periodically throughout the morning, his respiratory distress significantly resolved on BiPAP, still tachypneic, no significant tachycardia, no intercostal retractions, no nasal flaring, will continue to monitor in ICU on BiPAP, has received his p.o. Bumex, he is receiving fluids after his coronary angiography will have nursing staff discussed with cardiology about potentially cutting down the rate due to risk of fluid overload, does have 1+ pitting edema, on examination of lungs he does have crackles, spoke to cardiology, status post coronary angiography, no acute interventions, no stent placement Review of Systems Const: Denies: fever(s) or chills Card: Denies: chest pain Resp: Reports: dyspnea GI: Denies: abdominal pain or nausea : Denies: flank pain Skin/Breast: Denies: rash Medications/Allergies Home Medications Medication Instructions Recorded Confirmed Last Taken Type amlodipine 10 mg tablet 10 mg PO DAILY #90 tabs 01/03/22 12/11/22 12/14/22 09:00 Rx colesevelam 625 mg tablet (WelChol) 1,875 mg PO BID #540 tabs 01/03/22 12/11/22 11/23/22 08:00 Rx hydralazine 100 mg tablet 100 mg PO TID #270 tabs 01/03/22 12/15/22 12/14/22 19:00 Rx potassium chloride 20 mEq 20 meq PO BID #180 tabs 01/03/22 12/15/22 12/14/22 19:00 Rx tablet,extended release pen needle, diabetic 31 gauge x #100 ea 01/27/22 12/11/22 Unknown Rx 5/16 (TechLITE Pen Needle) fenofibrate nanocrystallized 145 145 mg PO BEDTIME 04/06/22 12/15/22 12/14/22 19:00 History mg tablet ascorbic acid (vitamin C) 500 mg 500 mg PO DAILY #30 tabs 04/08/22 12/15/22 12/14/22 09:00 Rx tablet amiodarone 200 mg tablet 200 mg PO DAILY #90 tabs 07/06/22 12/11/22 12/14/22 09:00 Rx rivaroxaban 20 mg tablet (Xarelto) 20 mg PO DAILY #90 tabs 07/06/22 12/11/22 12/14/22 09:00 Rx venlafaxine 150 mg 150 mg PO QAM #30 caps 08/08/22 12/15/22 12/14/22 09:00 Rx capsule,extended release 24 hr (Effexor XR) ipratropium 0.5 mg-albuterol 3 mg 3 ml inhalation Q4H PRN wheezing 10/16/22 12/11/22 11/23/22 21:00 Rx (2.5 mg base)/3 mL nebulization #180 mL soln Oxygen Pendant #1 ea 10/20/22 12/11/22 Unknown Rx buspirone 15 mg tablet 15 mg PO BID #60 tabs 10/31/22 12/11/22 11/23/22 20:00 Rx cetirizine 10 mg tablet 10 mg PO DAILY #30 tabs 10/31/22 12/11/22 12/14/22 09:00 Rx dapagliflozin propanediol 5 mg 5 mg PO QAM #30 tabs 10/31/22 12/11/22 12/14/22 09:00 Rx tablet (Farxiga) insulin degludec 100 unit/mL (3 See Rx Instructions SUBCUT DAILY 10/31/22 12/15/22 12/14/22 09:00 Rx mL) subcutaneous pen (Tresiba #50 mL FlexTouch U-100 insulin) levothyroxine 175 mcg tablet 175 mcg PO DAILY #30 tabs 10/31/22 12/11/22 12/14/22 09:00 Rx liraglutide 0.6 mg/0.1 mL (18 mg/3 1.8 mg (0.3 mL) SUBCUT Q24H #9 mL 10/31/22 12/15/22 12/14/22 09:00 Rx mL) subcutaneous pen injector (Victoza 3-Leonides) montelukast 10 mg tablet 10 mg PO DAILY #30 tabs 10/31/22 12/15/22 12/14/22 19:00 Rx (Singulair) bumetanide 2 mg tablet 2 mg PO BID #60 tabs 11/24/22 12/11/22 12/14/22 09:00 Rx ferrous gluconate 324 mg (38 mg 324 mg PO BID #60 tabs 11/30/22 12/11/22 12/14/22 09:00 Rx iron) tablet rosuvastatin 20 mg tablet 20 mg PO DAILY #30 tabs 11/30/22 12/11/22 12/14/22 09:00 Rx trazodone 100 mg tablet 100 mg PO BEDTIME #30 tabs 11/30/22 12/15/22 12/14/22 19:00 Rx umeclidinium 62.5 mcg-vilanterol 1 inh inhalation Q24H #60 ea 11/30/22 12/11/22 Unknown Rx 25 mcg/actuation powdr for inhalation (Anoro Ellipta) Allergies Allergy/AdvReac Type Severity Reaction Status Date / Time No Known Allergies Allergy Verified 11/30/22 10:06 Current Medications Generic Name Dose Route Start Last Admin Trade Name Freq PRN Reason Stop Dose Admin Albuterol/Ipratropium 3 ml 12/15/22 12:00 12/15/22 11:30 Ipratropium-Albuterol 3 Ml Neb INHALATION 3 ml QID.RESPIRATORY SANTA Administration Amiodarone HCl 200 mg 12/15/22 10:00 12/15/22 10:35 Amiodarone 200 Mg Tablet PO 200 mg DAILY SANTA Administration Amlodipine Besylate 10 mg 12/15/22 10:00 12/15/22 10:35 Amlodipine 10 Mg Tablet PO 10 mg DAILY SANTA Administration Ascorbic Acid 500 mg 12/15/22 10:00 12/15/22 10:35 Ascorbic Acid 500 Mg Tablet PO 500 mg DAILY SANTA Administration Atorvastatin Calcium 80 mg 12/15/22 10:00 12/15/22 10:35 Atorvastatin 40 Mg Tablet PO 80 mg DAILY SANTA Administration Bumetanide 2 mg 12/15/22 10:00 12/15/22 10:35 Bumetanide 1 Mg Tablet PO 2 mg BID SANTA Administration Buspirone HCl 15 mg 12/15/22 10:00 12/15/22 10:35 Buspirone 10 Mg Tablet PO 15 mg BID SANTA Administration Cetirizine HCl 10 mg 12/15/22 10:00 12/15/22 10:35 Cetirizine 10 Mg Tablet PO 10 mg DAILY SANTA Administration Ferrous Gluconate 324 mg 12/15/22 10:30 12/15/22 10:35 Ferrous Gluconate 324 Mg Tablet PO 324 mg BID SANTA Administration Hydralazine HCl 100 mg 12/15/22 10:00 12/15/22 10:35 Hydralazine 50 Mg Tablet PO 100 mg TID SANTA Administration Sodium Chloride 1,000 mls @ 50 mls/hr 12/15/22 06:17 12/15/22 06:41 Sodium Chloride 0.9% IV 12/16/22 02:16 Not Given .Q20H ONE Levothyroxine Sodium 175 mcg 12/15/22 10:00 12/15/22 10:34 Levothyroxine 175 Mcg Tablet PO 175 mcg DAILY SANTA Administration Montelukast Sodium 10 mg 12/15/22 10:00 12/15/22 10:35 Montelukast Sodium 10 Mg Tablet PO 10 mg DAILY SANTA Administration Non-Formulary Medication 1,875 mg 12/15/22 10:30 12/15/22 10:36 Colesevelam [Welchol] PO Not Given BID SANTA Non-Formulary Medication 0 unit 12/15/22 10:30 12/15/22 10:36 Insulin Degludec [Tresiba Flextouch U-100] SUBCUT Not Given DAILY SANTA Potassium Chloride 20 meq 12/15/22 09:00 12/15/22 10:34 Potassium Chloride Er 20 Meq Tablet PO 20 meq BID SANTA Administration PFSH Acute PFSH: Medical History Acquired lymphedema Acute diastolic heart failure Acute exacerbation of chronic obstructive airways disease Acute respiratory failure with hypercapnia Afib Allergic rhinitis due to pollen Anemia Anxiety Chronic atrial fibrillation with rapid ventricular response Chronic diastolic (congestive) heart failure Chronic kidney disease Chronic respiratory failure CKD (chronic kidney disease) stage 3, GFR 30-59 ml/min Congestive heart failure Diabetes mellitus with hyperglycemia, with long-term current use of insulin Elevated INR Essential (primary) hypertension GERD (gastroesophageal reflux disease) Hyperlipemia Hypothyroidism Hypoxia, sleep related Leukocytosis Morbid obesity with BMI of 50.0-59.9, adult MRSA infection NSTEMI (non-ST elevated myocardial infarction) Obesity hypoventilation syndrome EDGAR (obstructive sleep apnea) Pneumonia, unspecified organism Surgical History H/O esophagogastroduodenoscopy (02/18/21) History of bilateral cataract extraction 2019 and 2020 History of colonoscopy (02/18/21) History of gangrene Left buttocks requiring surgery May 2014 Family History Father Cancer Mother Heart disease CAD (coronary artery disease) Diabetes Heart attack Stroke Brother Heart attack Clotting disorder Stroke Sister Stroke Denies family history of Dementia Chronic kidney disease (CKD) Suicide Anesthesia complication Bleeding disorder Lung disease Social History Smoking and tobacco status: former smoker Quit status (tobacco): has quit using tobacco Year quit tobacco: 6 weeks ago Second hand smoke exposure: Yes Smoking risk assessment/counseling performed?: Yes Alcohol intake: former Year of sobriety/quit date alcohol: 1991 Desire information about alcohol rehabilitation?: No Counseling given: No Substance/Drug Use: never Desire information about substance/drug rehabilitation?: No Counseling given: No Adopted: No Caregiver/support person: No Lives independently: Yes Household members: spouse Housing: House Marital status: service: No Current occupational status: disabled Pets and animals: Yes Do you think of yourself as: Straight/Heterosexual Current gender identity: Male Vitals/I&O/Wt Last Vital Signs Temp 98.3 F 12/15/22 06:20 Pulse 70 12/15/22 11:34 Resp 20 H 12/15/22 11:30 BP 142/93 12/15/22 10:30 Pulse Ox 91 12/15/22 11:38 O2 Del Method BiPAP 12/15/22 11:38 O2 Flow Rate 15 12/15/22 07:40 FiO2 60 12/15/22 11:38 Weight last 48 hrs Weight 165.561 kg Physical Exam Const: COMMON NORMALS: no acute distress and patient oriented x3 Eye: COMMON NORMALS: Equal, round and reactive pupils present and EOMs intact bilaterally PUPIL: Yes Equal, round and reactive pupils present Neck/C-Spine: COMMON NORMALS: full ROM and no lymphadenopathy Lymph: LYMPHATIC: no lymphadenopathy noted Resp: COMMON NORMALS: normal respiratory effort, No retractions and No use of accessory muscles AUSCULTATION: crackles OTHER: Tachypneic Cardio: COMMON NORMALS: regular rate, regular rhythm, S1 normal heart sound p resent and S2 normal heart sound present RATE: regular rate RHYTHM: regular rhythm HEART SOUNDS: S1 normal heart sound present and S2 normal heart sound present GI: COMMON NORMALS: Normal to inspection, nondistended, normoactive bowel sounds present, non-tender and no bruits Extremity: NARRATIVE EXTREMITY EXAM: 1+ pitting edema bilateral extremities Neuro: COMMON NORMALS: patient oriented x3, CN's II-XII intact bilaterally and moves all extremities Psych: COMMON NORMALS: mental status grossly normal Data 12/15/22 06:18 12/15/22 06:18 A&P Assessment and plan (1) Morbid obesity with BMI of 50.0-59.9, adult: (2) Hypothyroidism: (3) CKD (chronic kidney disease) stage 3, GFR 30-59 ml/min: (4) Essential (primary) hypertension: (5) Congestive heart failure: (6) Acute on chronic respiratory failure: (7) Obesity hypoventilation syndrome: (8) CHF exacerbation: (9) Acute and chronic respiratory failure with hypoxia: Plan Acute hypoxic respiratory failure -After coronary angiography -Likely from underlying obesity hypoventilation syndrome, EDGAR, fluid overload, COPD, diastolic CHF Plan -Monitor in ICU -Continue BiPAP -Respiratory therapy eval -DuoNeb -Continue p.o. Bumex -Monitor respiratory status closely -Full code -Anticoagulation currently on hold as patient has a cath, he is on Xarelto at home, will resume when safe -SCDs for DVT prophylaxis Consult Attestations Medical Necessity Statement: Patient requires hospitalization for acute hypoxic respiratory failure, secondary to obesity hypoventilation syndrome, diastolic CHF, COPD Coding Level of Care Code Critical Care >/= 30 minutes Critical care time (in minutes): 45 The high probability of a clinically significant, sudden or life threatening deterioration, as referenced in this documentation, required my full and direct attention, intervention and personal management. The critical care time shown is in addition to time spent performing any reported separately billable procedures and includes the following: [x] Data and vital sign review and interpretation [x ] Patient assessment, examination and intervention [x] Medication orders and management [x] Patient/Family updates as able [x] Care Coordination and Documentation. Diagnoses Morbid obesity with BMI of 50.0-59.9, adult E66.01; Z68.43 Hypothyroidism E03.9 CKD (chronic kidney disease) stage 3, GFR 30-59 ml/min N18.30 Essential (primary) hypertension I10 Congestive heart failure I50.9 Acute on chronic respiratory failure J96.20 Obesity hypoventilation syndrome E66.2 CHF exacerbation I50.9 Acute and chronic respiratory failure with hypoxia J96.21
--- NOTE | 2022-12-15 16:35 | PM.SDS ---
Short Stay Summary Providers Date of Admit/Discharge: 12/15/22 Attending Provider: Fiona Mitchell MD Consults: Dr Doty Primary Care Provider: YONATHAN Samuel Chief Complaint: R55, I50.9 HPI History of Present Illness Julius Dunlap is a 62 year old male with a history of severe COPD, sleep apnea, obesity hypoventilation syndrome, recurrent decompensated heart failure, underwent a left heart underwent cardiac catheterization today. He was found to have severe pulmonary hypertension, features of severe restrictive heart disease. Because of the hypoxia, he was placed on nonrebreather mask during the procedure. Following the procedure, he became more hypoxic and had to be placed on a BiPAP. He was admitted to the ICU for close monitoring. 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 Possible high-grade lesion in the first obtuse marginal branch near the ostium. Because of the technical problems, could not intervene this lesion. So it was opted to treat him medically. Patient is known to have essential benign hypertension, dyslipidemia and type 2 diabetes. Patient did not have any chest pain. He has a chronically elevated white cell count. He also was found to be mildly anemic. He is known to have chronic kidney disease as well. Review of Systems Narrative: CONSTITUTIONAL: No fever or chills. EYES: No blurring of vision or other visual disturbances lately. ENT: No hoarseness of voice, auditory disturbances or sore throat. CARDIOVASCULAR: As mentioned above. RESPIRATORY: Severe COPD/chronic hypoxemia/hypoventilation syndrome. GASTROINTESTINAL: No hematemesis or melena. GENITOURINARY: Chronic kidney disease INTEGUMENTARY: No skin rashes or history of skin cancer. NEURO: No transient ischemic attacks or amaurosis. PSYCHIATRIC: No history of psychosis or major depression. HEMATOLOGIC: Chronic anemia ENDOCRINE: No history of polyuria or polydipsia. MUSCULOSKELETAL: No recent joint pain or swelling. ALLERGY/IMMUNOLOGY: As mentioned above. Home Meds/Allergies Home Medications and Allergies Home Medications Medication Instructions Recorded Confirmed Type fenofibrate nanocrystallized 145 145 mg PO BEDTIME 04/06/22 12/15/22 History mg tablet Allergies Allergy/AdvReac Type Severity Reaction Status Date / Time No Known Allergies Allergy Verified 11/30/22 10:06 PFSH Acute PFSH: Medical History Acquired lymphedema Acute diastolic heart failure Acute exacerbation of chronic obstructive airways disease Acute respiratory failure with hypercapnia Afib Allergic rhinitis due to pollen Anemia Anxiety Chronic atrial fibrillation with rapid ventricular response Chronic diastolic (congestive) heart failure Chronic kidney disease Chronic respiratory failure CKD (chronic kidney disease) stage 3, GFR 30-59 ml/min Congestive heart failure Diabetes mellitus with hyperglycemia, with long-term current use of insulin Elevated INR Essential (primary) hypertension GERD (gastroesophageal reflux disease) Hyperlipemia Hypothyroidism Hypoxia, sleep related Leukocytosis Morbid obesity with BMI of 50.0-59.9, adult MRSA infection NSTEMI (non-ST elevated myocardial infarction) Obesity hypoventilation syndrome EDGAR (obstructive sleep apnea) Pneumonia, unspecified organism Surgical History H/O esophagogastroduodenoscopy (02/18/21) History of bilateral cataract extraction 2019 and 2020 History of colonoscopy (02/18/21) History of gangrene Left buttocks requiring surgery May 2014 Family History Father Cancer Mother Heart disease CAD (coronary artery disease) Diabetes Heart attack Stroke Brother Heart attack Clotting disorder Stroke Sister Stroke Denies family history of Dementia Chronic kidney disease (CKD) Suicide Anesthesia complication Bleeding disorder Lung disease Social History Smoking and tobacco status: former smoker Quit status (tobacco): has quit using tobacco Year quit tobacco: 6 weeks ago Second hand smoke exposure: Yes Smoking risk assessment/counseling performed?: Yes Alcohol intake: former Year of sobriety/quit date alcohol: 1991 Desire information about alcohol rehabilitation?: No Counseling given: No Substance/Drug Use: never Desire information about substance/drug rehabilitation?: No Counseling given: No Adopted: No Caregiver/support person: No Lives independently: Yes Household members: spouse Housing: House Marital status: service: No Current occupational status: disabled Pets and animals: Yes Do you think of yourself as: Straight/Heterosexual Current gender identity: Male Vitals/I&O/Wt Last Vital Signs Temp 98.3 F 12/15/22 06:20 Pulse 75 12/15/22 15:37 Resp 19 H 12/15/22 15:25 BP 142/93 12/15/22 10:30 Pulse Ox 94 12/15/22 15:25 O2 Del Method High Flow Nasal Cannula 12/15/22 15:25 O2 Flow Rate 15 12/15/22 15:25 FiO2 60 12/15/22 11:38 Weight last 48 hrs Weight 365 lb Physical Exam Narrative: GENERAL: The patient is alert and oriented times three. Not in any acute distress. morbidly obese HEENT: No significant pallor, icterus or lymphadenopathy.Oral cavity: There are no mucous membrane lesions. NECK: Trachea appears to be central. No masses noted. No JVD or thyromegaly appreciated. RESPIRATORY: Chest is symmetrical. No intercostals muscle retraction or any accessory muscle activation. There is no chest wall tenderness. Breath sounds are heard bilaterally. No rales or rhonchi heard. No evidence of any consolidation. BREASTS: Deferred. HEART: The heart sounds are normal. No S3 or S4. No significant murmurs. No pericardial rub ABDOMEN: No vessel pulsations or distention. No tenderness. No organomegaly appreciated. Bowel sounds are normally heard. : Deferred. RECTAL: Deferred. LYMPHATIC: No lymphadenopathy noted in the neck or groin. EXTREMITIES: No hematoma bleeding at the arterial puncture site MUSCULOSKELETAL: No acute joint deformities or swelling SKIN: There are no significant scars or skin rash noted. NEUROPSYCHIATRIC: The patient is alert and oriented x3. Appears to be in a good mood. No tremors or rigidity noted. Hospital Course Hospital Course Patient was treated with BiPAP. He was given the Bumex morning dose. He diuresed fairly well. His oxygenation status returned to the baseline. Currently he is on 6 L of oxygen by nasal cannula and the oxygen saturations 92%. Discharge Summary Patient was admitted to the hospital following the cardiac catheterization because of the respiratory distress. He responded appropriately to BiPAP. He was given the morning dose of Bumex. He responded appropriately. He was found to have moderate disease in the diagonal branch of the left and descending artery. Possibly severe stenosis of the ostium of the first obtuse marginal branch. Because of technical difficulties, the OM lesion was not intervened. It was opted to treat him medically. He is wanting to go home. Patient's respiratory status improved. Since his status seems to be stable and at the baseline, he is being discharged home today. We will have a BMP at the [facility] on Sunday. We will see him in the office in 2-week SSS Data Data Completed and Pending: Completed Studies During Hospitalization Category Date Time Status [employer] request for service Routin e Exams 12/15/22 06:17 Completed XR chest 1V christian ble [id number] Stat Exams 12/15/22 09:55 Completed Pending at discharge Category Date Time Status XR chest 1V christian ble [id number] Routine Exams 12/16/22 07:00 Ordered Arterial Blood Ga s W/O Coox AM LABS Lab 12/16/22 04:00 Ordered Arterial Blood Ga s W/O Coox AM LABS Lab 12/17/22 04:00 Ordered Arterial Blood Ga s W/O Coox AM LABS Lab 12/18/22 04:00 Ordered Basic Metabolic P kentrell AM LABS Lab 12/16/22 04:00 Ordered Basic Metabolic P kentrell AM LABS Lab 12/17/22 04:00 Ordered Basic Metabolic P kentrell AM LABS Lab 12/18/22 04:00 Ordered Complete Blood Co unt w/Auto AM LABS Lab 12/16/22 04:00 Ordered Complete Blood Co unt w/Auto AM LABS Lab 12/17/22 04:00 Ordered Complete Blood Co unt w/Auto AM LABS Lab 12/18/22 04:00 Ordered Magnesium AM LABS Lab 12/16/22 04:00 Ordered Magnesium AM LABS Lab 12/17/22 04:00 Ordered Magnesium AM LABS Lab 12/18/22 04:00 Ordered NT Pro B Type Oly riuretic Pept QAM Lab 12/16/22 06:00 Ordered NT Pro B Type Oly riuretic Pept QAM Lab 12/17/22 06:00 Ordered NT Pro B Type Oly riuretic Pept QAM Lab 12/18/22 06:00 Ordered Sputum Culture an d Gram Stain Stat Lab 12/15/22 15:40 Received Procedures Performed: Right and left heart catheterization with right and left coronary angiogram and FFR Diagnoses at Discharge Discharge Diagnosis (1) Acute and chronic respiratory failure with hypoxia: Details from hospital stay: Most likely from the IV fluid and dye. Patient responded appropriately to diuretic and BiPAP. Status: Acute (2) CHF exacerbation: Details from hospital stay: As mentioned above. Patient has severe LV diastolic dysfunction with an LVEDP of 35 mmHg. The mean gradient of the pressure also was around 34 mmHg. Status: Acute (3) Atherosclerotic heart disease: Details from hospital stay: Patient has moderate disease in the first diagonal branch of the left anterior descending artery. Possible severe disease in the ostium of the first obtuse marginal branch. It was opted to treat him medically. For the details, please refer to the cardiac catheterization report Status: Acute (4) CKD (chronic kidney disease) stage 3, GFR 30-59 ml/min: Details from hospital stay: Patient was carefully treated with IV fluids. We will have a repeat a BMP on Sunday at the [facility] Status: Chronic (5) Essential (primary) hypertension: Details from hospital stay: Fairly under control. May continue on the current medications. Status: Chronic (6) Congestive heart failure: Details from hospital stay: Continued on Bumex in the hospital. Status: Acute (7) Hypothyroidism: Details from hospital stay: May continue on the current medications. Status: Chronic (8) Obesity hypoventilation syndrome: Details from hospital stay: Continue on the current management Status: Acute (9) Morbid obesity with BMI of 50.0-59.9, adult: Details from hospital stay: Patient understand importance of lifestyle modification. Status: Chronic Discharge Plan Discharge Patient Disposition: Home Condition: Stable Prescriptions: No Action ipratropium-albuterol 0.5 mg-3 mg(2.5 mg base)/3 mL solution for nebulization 3 ml inhalation Q4H PRN (Reason: wheezing) Qty: 180 6RF venlafaxine [Effexor XR] 150 mg capsule,extended release 24hr 150 mg PO QAM Qty: 30 2RF buspirone 15 mg tablet 15 mg PO BID Qty: 60 2RF cetirizine 10 mg tablet 10 mg PO DAILY Qty: 30 2RF Tresiba FlexTouch U-100 100 unit/mL (3 mL) insulin pen See Rx Instructions SUBCUT DAILY Qty: 50 2RF Rx Instructions: 35 units subcutaneously daily levothyroxine 175 mcg tablet 175 mcg PO DAILY Qty: 30 2RF Victoza 3-Leonides 0.6 mg/0.1 mL (18 mg/3 mL) pen injector 1.8 mg SUBCUT Q24H Qty: 9 2RF montelukast [Singulair] 10 mg tablet 10 mg PO DAILY Qty: 30 2RF Farxiga 5 mg tablet 5 mg PO QAM Qty: 30 2RF Anoro Ellipta 62.5-25 mcg/actuation blister with device 1 inh inhalation Q24H Qty: 60 2RF trazodone 100 mg tablet 100 mg PO BEDTIME Qty: 30 2RF rosuvastatin 20 mg tablet 20 mg PO DAILY Qty: 30 2RF ferrous gluconate 324 mg (38 mg iron) tablet 324 mg PO BID Qty: 60 2RF amlodipine 10 mg tablet 10 mg PO DAILY Qty: 90 3RF Rx Instructions: Must be seen for further refills colesevelam [WelChol] 625 mg tablet 1,875 mg PO BID Qty: 540 3RF hydralazine 100 mg tablet 100 mg PO TID Qty: 270 3RF potassium chloride 20 mEq tablet extended release 20 meq PO BID Qty: 180 3RF Hold Instructions: Resume on 04/15/22. (DME) pen needle, diabetic [TechLITE Pen Needle] 31 gauge x 5/16 needle See Rx Instructions .ROUTE .MEDSUPPLY Qty: 100 5RF Rx Instructions: Three times a day Xarelto 20 mg tablet 20 mg PO DAILY Qty: 90 3RF Rx Instructions: must administer with a meal/food amiodarone 200 mg tablet 200 mg PO DAILY Qty: 90 3RF (DME) Oxygen Pendant See Rx Instructions .Route .MEDSUPPLY Qty: 1 0RF Rx Instructions: As directed bumetanide 2 mg tablet 2 mg PO BID Qty: 60 6RF fenofibrate nanocrystallized 145 mg tablet 145 mg PO BEDTIME ascorbic acid (vitamin C) 500 mg tablet 500 mg PO DAILY Qty: 30 0RF Discharge Orders: Discharge Order (Routine); Ordered 12/15/22 Ordered By: Fiona Mitchell Referrals: Adelaida Argueta FNP [Nurse Practitioner] - 12/29/22 9:45 am (follow up from hospital visit /coronary angiogram /will need wound check and lab test (BMP) appointment scheduled :Adelaida Argueta APN date of ,December at time of 09:45 am. after this appointment will follow with cardiology appointment.) Patient Instructions: Opioid Safety, Post Angiogram Home Care Instructions Activity Restrictions/Additional Instructions: BMP at the [facility] on Sunday Appointment the [facility] to be seen by the nurse practitioner in 2 weeks Appointment with me in the office as scheduled Attestations Medical Necessity Statement*: Discharge home today Time Spent in Patient Care*: less than 30 min Status at Discharge: Cognitive status at discharge: cognitively intact, Behavioral status at discharge: cooperative, Quality Metrics Clinical Quality Measures: [ No reported AMI, CVA or VTE this stay] Coding Level of Care Code 72829 Diagnoses Acute and chronic respiratory failure with hypoxia J96.21 CHF exacerbation I50.9 Atherosclerotic heart disease I25.10 CKD (chronic kidney disease) stage 3, GFR 30-59 ml/min N18.30 Essential (primary) hypertension I10 Congestive heart failure I50.9 Hypothyroidism E03.9 Obesity hypoventilation syndrome E66.2 Morbid obesity with BMI of 50.0-59.9, adult E66.01; Z68.43
[2022-12-15 17:13] LABS: Glucose Point of Care 198 mg/dL (70-110)
[2022-12-15] MEDS: insulin lispro 100 unit/1 mL SUBCUT (17:37)
== END 2022-12-15 18:00 | disposition home or self-care (01) ==
LOC: ICU 09:13
PROVIDERS: Family Medicine; Admitting Provider Internal Medicine Cardiovascular Disease; PCP Nurse Practitioner; Visit Provider Internal Medicine Cardiovascular Disease
DX: J96.21 Acute and chronic respiratory failure with hypoxia (principal); I48.91 Unspecified atrial fibrillation; I25.10 Atherosclerotic heart disease of native coronary artery without angina pectoris; N18.30 Chronic kidney disease, stage 3 unspecified; I13.0 Hypertensive heart and chronic kidney disease with heart failure and stage 1 through stage 4 chronic kidney disease, or unspecified chronic kidney disease; I50.30 Unspecified diastolic (congestive) heart failure; E03.9 Hypothyroidism, unspecified; E66.2 Morbid (severe) obesity with alveolar hypoventilation; Z68.43 Body mass index [BMI] 50.0-59.9, adult; J44.9 Chronic obstructive pulmonary disease, unspecified; E11.22 Type 2 diabetes mellitus with diabetic chronic kidney disease; E78.5 Hyperlipidemia, unspecified; I25.2 Old myocardial infarction; G47.33 Obstructive sleep apnea (adult) (pediatric); Z87.891 Personal history of nicotine dependence; Z79.01 Long term (current) use of anticoagulants; Z86.14 Personal history of Methicillin resistant Staphylococcus aureus infection
CPT/HCPCS: 36415; 36416; 36600; 71045; 80048; 82810; 82962; 83880; 84145; 85025; 85610; 87070; 87205; 93460; 93571; 94640; 94660; 94664; 96361; 96365; 96367; 96372; C1751; C1769; C1887; C1894; G0378; J1644; J1815; J2250; J2704; J3010; J3490; J7030; Q0163; Q9967

== ENCOUNTER 2022-12-27 15:32 | Inpatient (IN) | payer MEDICARE, MEDICAID, SELFPAY ==
[2022-12-27] VITALS (12 sets, daily range): BP systolic 96–155; BP diastolic 52–77; PULSE 64–91; RESP 18–24; TEMP 37.2–39.4; O2SAT 92–99; BMI 48.8
--- NOTE | 2022-12-27 16:08 | ECG_ITS ---
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 Measurements Intervals [place] Rate: 101 P: 0 HI: 0 QRS: 82 QRSD: 144 T: 90 QT: 356 QTc: 461 Interpretive Statements ATRIAL FIBRILLATION WITH RAPID VENTRICULAR RESPONSE Nonspecific ST changes in the anterolateral leads nonspecific ST-T changes in the inferior leads, possibly artifactual INTRAVENTRICULAR CONDUCTION DELAY [130+ ms QRS DURATION] Compared to ECG 11/24/2022 05:02:58 Intraventricular conduction delay now present Defective EKG, need to repeat Electronically Signed On 12-27-2022 20:53:34 CDT by Fiona Mitchell M.D. [id number]
--- NOTE | 2022-12-27 16:09 | XRR_ITS ---
PROCEDURE INFORMATION: Exam: XR Chest Exam date and time: 12/27/2022 4:16 PM Age: 62 years old Clinical indication: Shortness of breath; Additional info: Fever, cough, SOB TECHNIQUE: Imaging protocol: Radiologic exam of the chest. Views: 1 view. COMPARISON: CR XR chest 1V portable [id number] 12/15/2022 10:15 AM FINDINGS: Lungs: Patchy infiltrate is seen in the right base. Questionable retrocardiac infiltrate in the left base. Pleural spaces: Unremarkable. No pleural effusion. No pneumothorax. Heart/Mediastinum: Unremarkable. No cardiomegaly. Bones/joints: Unremarkable. XR/XR chest 1V portable [id number] IMPRESSION: 1. Patchy infiltrate is seen in the right base. 2. Questionable retrocardiac infiltrate in the left base.
[2022-12-27] MEDS: ipratropium-albuterol 3 mL Neb INHALATION (16:20)
[2022-12-27 16:29] LABS: ABG PCO2 43.2 mmHg (35-45); ABG PH Result 7.36 (7.35-7.45); Arterial Blood Gas Hematocrit 35.1 % (42-52); Base Excess ABG -1.1 mmol/L (-2.0-2.0); Blood Gas Allen Test Pos; Blood Gas Operator Identificat MONRO; Blood Gas Sample Site Radial, left; Blood Gas Sample Type Arterial; Carboxyhemoglobin 3.9 %THgb (0.4-20.1); HCO3 ABG 24.4 mmol/L (22-26); HGB O2 Sat 91.2 % (95-100); Methemoglobin 0.6 % (0.4-1.5); Oxygen Device NC; PO2 ABG 74.1 mmHg (80.0-100.0); Total Hemoglobin 11.5 g/dL (14-18)
[2022-12-27] MEDS: acetaminophen 500 mg Tablet 1000 MG PO (16:49)
[2022-12-27] MEDS: piperacillin-tazobactam 4.5 GM in sodium chloride 0.9% (plus) 50 ML IV (16:51)
[2022-12-27 16:57] LABS: Basophils # 0.1 10^3/uL (0.0-0.1); Basophils % 0.2 %; Eosinophils # 0.1 10^3/uL (0.0-0.8); Eosinophils % 0.5 %; Hematocrit 35.9 % (37-53); Lymphocytes # 1.5 10^3/uL (0.8-4.8); Lymphocytes % 6.8 %; Mean Corpuscular HGB Conc 31.2 g/dL (30-55); Mean Corpuscular Hemoglobin 28.1 pg (27-33); Mean Corpuscular Volume 90.2 fl (82-101); Mean Platelet Volume 10.3 fL (7.4-10.4); Monocytes # 1.4 10^3/uL (0.2-0.9); Monocytes % 6.4 %; Neutrophils # 18.12 10^3/uL (1.8-7.7); Neutrophils % 85.6 %; Nucleated Red Blood Cells % 0 %; Platelet Count 215 10^3/cmm (157-399); Red Blood Count 3.98 10^6/uL (3.85-5.65); Red Cell Distribution Width 15.6 % (12.1-15.1); White Blood Count 21.19 10^3/uL (3.29-11.43)
[2022-12-27] MEDS: vancomycin 2,000 MG/400 ML PIGGYBACK 200 MG IV (16:58)
[2022-12-27 17:14] LABS: Lactic Sepsis W/Reflex 2.5 mmol/L (0.5-2.2)
[2022-12-27 17:22] LABS: Influenza A by IFA negative (Negative); Influenza B by IFA negative (Negative)
[2022-12-27 17:24] LABS: Anion Gap 15.7 (5-19); Blood Urea Nitrogen 29 mg/dL (8-23); Calcium 8.6 mg/dL (8.5-10.5); Carbon Dioxide 25 mmol/L (22-29); Chloride 101 mmol/L (98-107); Glucose 209 mg/dL (65-115); NT Pro B Type Natriuretic Pept 1312 pg/mL (0-125); Osmolality Calculated 296 mOsm/kg (285-295); Potassium 4.7 mmol/L (3.5-5.1); Sodium 137 mmol/L (136-145)
--- NOTE | 2022-12-27 18:25 | ED_ITS ---
HPI - SOB/Dyspnea General: Chief Complaint: Shortness of Breath/Dyspnea Stated Complaint: low bp/low oxygen Time Seen by Provider: 12/27/22 15:56 History of Present Illness: HPI Narrative: This patient is a 62-year-old white male who presents to the emergency department with fever, chills, cough and shortness of breath. Patient's provided most of the history. The symptoms came on suddenly today. Patient does have history of COPD, congestive heart failure and coronary artery disease. Patient is normally on 4 L of oxygen at home. had to bump him up to 8 L today. Patient does continue to smoke occasionally. He is not currently having any chest pain. Patient was admitted recently and was on BiPAP during that admission. Associated symptoms: Reports fever(s) Review of Systems General: Reports: 10 or more systems reviewed and unremarkable except in HPI and below Const: Reports: fever(s) and chills Resp: Reports: dyspnea and productive cough PFSH ED PFSH: Medical History Acquired lymphedema Acute diastolic heart failure Acute exacerbation of chronic obstructive airways disease Acute respiratory failure with hypercapnia Afib Allergic rhinitis due to pollen Anemia Anxiety Chronic atrial fibrillation with rapid ventricular response Chronic diastolic (congestive) heart failure Chronic kidney disease Chronic respiratory failure CKD (chronic kidney disease) stage 3, GFR 30-59 ml/min Congestive heart failure Diabetes mellitus with hyperglycemia, with long-term current use of insulin Elevated INR Essential (primary) hypertension GERD (gastroesophageal reflux disease) Hyperlipemia Hypothyroidism Hypoxia, sleep related Leukocytosis Morbid obesity with BMI of 50.0-59.9, adult MRSA infection NSTEMI (non-ST elevated myocardial infarction) Obesity hypoventilation syndrome EDGAR (obstructive sleep apnea) Pneumonia, unspecified organism Surgical History H/O esophagogastroduodenoscopy (02/18/21) History of bilateral cataract extraction 2019 and 2020 History of colonoscopy (02/18/21) History of gangrene Left buttocks requiring surgery May 2014 Family History Father Cancer Mother Heart disease CAD (coronary artery disease) Diabetes Heart attack Stroke Brother Heart attack Clotting disorder Stroke Sister Stroke Denies family history of Dementia Chronic kidney disease (CKD) Suicide Anesthesia complication Bleeding disorder Lung disease Social History Smoking and tobacco status: former smoker Quit status (tobacco): has quit using tobacco Year quit tobacco: 6 weeks ago Second hand smoke exposure: Yes Smoking risk assessment/counseling performed?: Yes Alcohol intake: former Year of sobriety/quit date alcohol: 1991 Desire information about alcohol rehabilitation?: No Counseling given: No Substance/Drug Use: never Desire information about substance/drug rehabilitation?: No Counseling given: No Adopted: No Caregiver/support person: No Lives independently: Yes Household members: spouse Housing: House Marital status: service: No Current occupational status: disabled Pets and animals: Yes Do you think of yourself as: Straight/Heterosexual Current gender identity: Male Physical Exam Const: COMMON NORMALS: patient oriented x3 GENERAL APPEARANCE: cooperative, in distress and disheveled NUTRITIONAL APPEARANCE: obese HENMT: COMMON NORMALS: normocephalic and moist oral mucous membranes HEAD & SCALP: normocephalic Eye: COMMON NORMALS: Equal, round and reactive pupils present, EOMs intact bilaterally and conjunctivae normal CONJUNCTIVA: Yes conjunctivae normal PUPIL: Yes Equal, round and reactive pupils present Resp: EFFORT & INSPECTION: Yes able to speak in complete sentences and Yes tachypneic AUSCULTATION: crackles Laterality: right Cardio: RATE: tachycardic RHYTHM: abnormal rhythm irregularly irregular GI: COMMON NORMALS: Soft to palpation INSPECTION: Yes central obesity and Yes Abdominal panniculus present AUSCULTATION: Yes normoactive bowel sounds PALPATION: Yes Soft to palpation Neuro: COMMON NORMALS: patient oriented x3 Skin: COMMON NORMALS: no rashes or lesions noted GENERAL SKIN EXAM: no rashes or lesions noted Course Vital Signs: Vital signs: Vital Signs Temperature 98.9 F 12/27/22 17:30 Pulse Rate 91 12/27/22 16:54 Respiratory Rate 18 12/27/22 17:30 Blood Pressure 123/56 12/27/22 17:30 Pulse Oximetry 94 12/27/22 17:30 Oxygen Delivery Me thod Nasal Cannula 12/27/22 16:54 Oxygen Flow Rate 8 12/27/22 16:54 Fraction of Inspir ed Oxygen 8 12/27/22 15:39 MDM - SOB/Dyspnea Medical Decision Making Chest x-ray reveals right lower lobe infiltrate. CBC reveals white blood cell count of 21.1. BMP revealed a BUN of 29 creatinine of 1.7. Blood sugar 209. Lactic acid 2.5. BNP was 1312. Influenza negative. COVID pending. Arterial blood gases on 8 L revealed a pH of 7.36 with a PCO2 of 43 and PO2 of 74. EKG revealed atrial fibrillation with a ventricular rate of 101. Patient does have chronic atrial fibrillation. Patient obviously has pneumonia. He will need admission. I did start Zosyn and vancomycin initially due to the high fever and tachycardia as well as with his history. I discussed the case with Dr. Kwong, hospitalist. He would like the patient on BiPAP. He would like the patient to receive some Lasix. Patient will be admitted to the cardiac stepdown unit. Patient will be transferred to the floor shortly. He is stable. Lab Data 12/27/22 16:38 12/27/22 16:38 Labs/Radiology: Radiology Impressions Chest X-Ray 12/27/22 16:09 IMPRESSION: 1. Patchy infiltrate is seen in the right base. 2. Questionable retrocardiac infiltrate in the left base. Laboratory Results WBC 21.19 10^3/uL (3.29-11.43) H 12/27/22 16:38 RBC 3.98 10^6/uL (3.85-5.65) 12/27/22 16:38 Hgb 11.20 g/dL (11.27-16.99) L 12/27/22 16:38 Hct 35.9 % (37-53) L 12/27/22 16:38 MCV 90.2 fl (82-101) 12/27/22 16:38 MCH 28.1 pg (27-33) 12/27/22 16:38 MCHC 31.2 g/dL (30-55) 12/27/22 16:38 RDW 15.6 % (12.1-15.1) H 12/27/22 16:38 Plt Count 215 10^3/cmm (157-399) 12/27/22 16:38 MPV 10.3 fL (7.4-10.4) 12/27/22 16:38 Neut % (Auto) 85.6 % 12/27/22 16:38 Lymph % (Auto) 6.8 % 12/27/22 16:38 [place] % (Auto) 6.4 % 12/27/22 16:38 Eos % (Auto) 0.5 % 12/27/22 16:38 Baso % (Auto) 0.2 % 12/27/22 16:38 Neut # (Auto) 18.12 10^3/uL (1.8-7.7) H 12/27/22 16:38 Lymph # (Auto) 1.5 10^3/uL (0.8-4.8) 12/27/22 16:38 [place] # (Auto) 1.4 10^3/uL (0.2-0.9) H 12/27/22 16:38 Eos # (Auto) 0.1 10^3/uL (0.0-0.8) 12/27/22 16:38 Baso # (Auto) 0.1 10^3/uL (0.0-0.1) 12/27/22 16:38 Nucleated RBC % (auto) 0 % 12/27/22 16:38 Nucleated RBCs # 0.0 /100WBC 12/27/22 16:38 Specimen Type Arterial 12/27/22 16:08 Sample Site Radial, left 12/27/22 16:08 ABG pH 7.36 (7.35-7.45) 12/27/22 16:08 ABG pCO2 43.2 mmHg (35-45) 12/27/22 16:08 ABG pO2 74.1 mmHg (80.0-100.0) L 12/27/22 16:08 ABG HCO3 24.4 mmol/L (22-26) 12/27/22 16:08 ABG Base Excess -1.1 mmol/L (-2.0-2.0) 12/27/22 16:08 Avila Test Pos 12/27/22 16:08 Hematocrit 35.1 % (42-52) L 12/27/22 16:08 Hgb O2 Saturation 91.2 % (95-100) L 12/27/22 16:08 Carboxyhemoglobin 3.9 %THgb (0.4-20.1) 12/27/22 16:08 Methemoglobin 0.6 % (0.4-1.5) 12/27/22 16:08 Total Hemoglobin 11.5 g/dL (14-18) L 12/27/22 16:08 O2 Delivery Device Nc 12/27/22 16:08 O2 Liters/Min 8.0 % 12/27/22 16:08 Photo Optics Technician ID Dmitry 12/27/22 16:08 Sodium 137 mmol/L (136-145) 12/27/22 16:38 Potassium 4.7 mmol/L (3.5-5.1) 12/27/22 16:38 Chloride 101 mmol/L (98-107) 12/27/22 16:38 Carbon Dioxide 25 mmol/L (22-29) 12/27/22 16:38 Anion Gap 15.7 (5-19) 12/27/22 16:38 BUN 29 mg/dL (8-23) H 12/27/22 16:38 Creatinine 1.7 mg/dL (0.7-1.2) H 12/27/22 16:38 GFR Calculation 41.0 mL/min (90-130) L 12/27/22 16:38 Glucose 209 mg/dL (65-115) H 12/27/22 16:38 Calculated Osmolality 296 mOsm/kg (285-295) H 12/27/22 16:38 Lactic Acid 2.5 mmol/L (0.5-2.2) H 12/27/22 16:38 Calcium 8.6 mg/dL (8.5-10.5) 12/27/22 16:38 NT-Pro-B Natriuret Pep 1312 pg/mL (0-125) H 12/27/22 16:38 Influenza Type A Ag negative (Negative) 12/27/22 16:55 Influenza Type B Ag negative (Negative) 12/27/22 16:55 All radiology interpretation(s) finalized by discharge Discharge Plan Discharge Condition: Stable Prescriptions: No Action ipratropium-albuterol 0.5 mg-3 mg(2.5 mg base)/3 mL solution for nebulization 3 ml inhalation Q4H PRN (Reason: wheezing) Qty: 180 6RF Entresto 24-26 mg tablet 1 tab PO BID Qty: 60 0RF venlafaxine [Effexor XR] 150 mg capsule,extended release 24hr 150 mg PO QAM Qty: 30 2RF buspirone 15 mg tablet 15 mg PO BID Qty: 60 2RF cetirizine 10 mg tablet 10 mg PO DAILY Qty: 30 2RF Tresiba FlexTouch U-100 100 unit/mL (3 mL) insulin pen See Rx Instructions SUBCUT DAILY Qty: 50 2RF Rx Instructions: 35 units subcutaneously daily levothyroxine 175 mcg tablet 175 mcg PO DAILY Qty: 30 2RF Victoza 3-Leonides 0.6 mg/0.1 mL (18 mg/3 mL) pen injector 1.8 mg SUBCUT Q24H Qty: 9 2RF montelukast [Singulair] 10 mg tablet 10 mg PO DAILY Qty: 30 2RF Farxiga 5 mg tablet 5 mg PO QAM Qty: 30 2RF Anoro Ellipta 62.5-25 mcg/actuation blister with device 1 inh inhalation Q24H Qty: 60 2RF trazodone 100 mg tablet 100 mg PO BEDTIME Qty: 30 2RF rosuvastatin 20 mg tablet 20 mg PO DAILY Qty: 30 2RF ferrous gluconate 324 mg (38 mg iron) tablet 324 mg PO BID Qty: 60 2RF amlodipine 10 mg tablet 10 mg PO DAILY Qty: 90 3RF Rx Instructions: Must be seen for further refills colesevelam [WelChol] 625 mg tablet 1,875 mg PO BID Qty: 540 3RF hydralazine 100 mg tablet 100 mg PO TID Qty: 270 3RF Hold Instructions: Order Change potassium chloride 20 mEq tablet extended release 20 meq PO BID Qty: 180 3RF Hold Instructions: Resume on 04/15/22. (DME) pen needle, diabetic [TechLITE Pen Needle] 31 gauge x 5/16 needle See Rx Instructions .ROUTE .MEDSUPPLY Qty: 100 5RF Rx Instructions: Three times a day Xarelto 20 mg tablet 20 mg PO DAILY Qty: 90 3RF Rx Instructions: must administer with a meal/food amiodarone 200 mg tablet 200 mg PO DAILY Qty: 90 3RF (DME) Oxygen Pendant See Rx Instructions .Route .MEDSUPPLY Qty: 1 0RF Rx Instructions: As directed bumetanide 2 mg tablet 2 mg PO BID Qty: 60 6RF fenofibrate nanocrystallized 145 mg tablet 145 mg PO BEDTIME ascorbic acid (vitamin C) 500 mg tablet 500 mg PO DAILY Qty: 30 0RF Referrals: Jeremiah Griffin, [facility] [Primary Care Provider] - Coding Level of Care Code ED Director Credit Risk for Alyse [place]
[2022-12-27] MEDS: FUROsemide 10 mg/mL SDV 10mL 80 MG IVP (18:34)
[2022-12-27 18:39] LABS: Reflex Lactate Order REFLEX LACTIC ORDERD
[2022-12-27 18:42] LABS: SARS Covid-2 Antigen positive (Negative)
--- NOTE | 2022-12-27 18:56 | PC.NURSE ---
Report taken from DEBI Copeland at this time.
--- NOTE | 2022-12-27 19:25 | P.HP_ITS ---
Providers/Chief Complaint Admitting Physician: Maria R Kwong MD Primary Care Provider: HARJEET SamuelP-C Chief Complaint: low bp/low oxygen/confusion History of Present Illness Julius Dunlap is a 62 year old male with a history of severe COPD, sleep apnea, obesity hypoventilation syndrome, recurrent decompensated heart failure, underwent a left heart underwent cardiac catheterization today.? He was found to have severe pulmonary hypertension, features of severe restrictive heart disease Scented today with chief complaint of worsening of shortness of breath. He was diagnosed with COVID-19 and sepsis related to right lower lobe pneumonia. 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 Possible high-grade lesion in the first obtuse marginal branch near the ostium.? Because of the technical problems, could not intervene this lesion.? So it was opted to treat him medically. Review of Systems Const: Reports: fever(s) and chills Eyes: Denies: change in vision ENMT: Denies: throat pain Card: Denies: chest pain Resp: Reports: dyspnea GI: Denies: abdominal pain : Denies: flank pain Musc: Denies: neck pain Skin/Breast: Denies: rash Neuro: Denies: headache(s) Psych: Reports: anxiety Endo: Denies: polyuria Medications/Allergies Home Medications Medication Instructions Recorded Confirmed Last Taken Type colesevelam 625 mg tablet (WelChol) 1,875 mg PO BID #540 tabs 01/03/22 12/28/22 11/23/22 08:00 Rx potassium chloride 20 mEq 20 meq PO BID #180 tabs 01/03/22 12/28/22 12/14/22 19:00 Rx tablet,extended release pen needle, diabetic 31 gauge x #100 ea 01/27/22 12/28/22 Unknown Rx 16 (TechLITE Pen Needle) ipratropium 0.5 mg-albuterol 3 mg 3 ml inhalation Q4H PRN wheezing 10/16/22 12/28/22 11/23/22 21:00 Rx (2.5 mg base)/3 mL nebulization #180 mL soln Oxygen Pendant #1 ea 10/20/22 12/28/22 Unknown Rx buspirone 15 mg tablet 15 mg PO BID #60 tabs 10/31/22 12/28/22 11/23/22 20:00 Rx dapagliflozin propanediol 5 mg 5 mg PO QAM #30 tabs 10/31/22 12/28/22 12/14/22 09:00 Rx tablet (Farxiga) bumetanide 2 mg tablet 2 mg PO BID #60 tabs 11/24/22 12/28/22 12/14/22 09:00 Rx trazodone 100 mg tablet 100 mg PO BEDTIME #30 tabs 11/30/22 12/28/22 12/14/22 19:00 Rx umeclidinium 62.5 mcg-vilanterol 1 inh inhalation Q24H #60 ea 11/30/22 12/28/22 Unknown Rx 25 mcg/actuation powdr for inhalation (Anoro Ellipta) sacubitril 24 mg-valsartan 26 mg 1 tab PO BID #60 tabs 12/18/22 12/28/22 Unknown Rx tablet (Entresto) amiodarone 200 mg tablet 200 mg PO QAM 12/28/22 12/28/22 Unknown History amlodipine 10 mg tablet 10 mg PO QAM 12/28/22 12/28/22 Unknown History ascorbic acid (vitamin C) 500 mg 500 mg PO QAM 12/28/22 12/28/22 Unknown History tablet (Vitamin C) cetirizine 10 mg tablet (Zyrtec) 10 mg PO QAM 12/28/22 12/28/22 Unknown History fscgbhknzw-SN-CF-acetaminophen 15 - 30 ml PO Q6H PRN Cough 12/28/22 12/28/22 Unknown History 6.25 mg-5 mg-10 mg-325mg/15mL oral liqd (Vicks NyQuil Severe Cold-Flu) ferrous sulfate 325 mg (65 mg 325 mg PO BID 12/28/22 12/28/22 Unknown History iron) tablet (FeroSul) honey 100 % topical paste See Rx Instructions .Route .COMPLEX 12/28/22 12/28/22 2 Weeks Ago History (MediHoney (honey)) ~12/14/22 insulin degludec 100 unit/mL (3 35 unit SUBCUT QAM 12/28/22 12/28/22 Unknown History mL) subcutaneous pen (Tresiba FlexTouch U-100 insulin) levothyroxine 175 mcg tablet 175 mcg PO QAM 12/28/22 12/28/22 Unknown History liraglutide 0.6 mg/0.1 mL (18 mg/3 1.8 mg SUBCUT QAM 12/28/22 12/28/22 Unknown History mL) subcutaneous pen injector (Victoza 3-Leonides) montelukast 10 mg tablet 10 mg PO QAM 12/28/22 12/28/22 Unknown History rivaroxaban 20 mg tablet (Xarelto) 20 mg PO QAM 12/28/22 12/28/22 Unknown History rosuvastatin 20 mg tablet 20 mg PO QAM 12/28/22 12/28/22 Unknown History Allergies Allergy/AdvReac Type Severity Reaction Status Date / Time No Known Allergies Allergy Verified 12/28/22 07:24 PFSH Acute PFSH: Medical History (Updated 12/28/22 @ 09:22 by Maria R Kwong MD) Acquired lymphedema Acute diastolic heart failure Acute exacerbation of chronic obstructive airways disease Acute respiratory failure with hypercapnia Afib Allergic rhinitis due to pollen Anemia Anxiety Chronic atrial fibrillation with rapid ventricular response Chronic diastolic (congestive) heart failure Chronic kidney disease Chronic respiratory failure CKD (chronic kidney disease) stage 3, GFR 30-59 ml/min Congestive heart failure Diabetes mellitus with hyperglycemia, with long-term current use of insulin Elevated INR Essential (primary) hypertension GERD (gastroesophageal reflux disease) Hyperlipemia Hypothyroidism Hypoxia, sleep related Leukocytosis Morbid obesity with BMI of 50.0-59.9, adult MRSA infection NSTEMI (non-ST elevated myocardial infarction) Obesity hypoventilation syndrome EDGAR (obstructive sleep apnea) Pneumonia, unspecified organism Sepsis Surgical History H/O esophagogastroduodenoscopy (02/18/21) History of bilateral cataract extraction 2019 and 2020 History of colonoscopy (02/18/21) History of gangrene Left buttocks requiring surgery May 2014 Family History Father Cancer Mother Heart disease CAD (coronary artery disease) Diabetes Heart attack Stroke Brother Heart attack Clotting disorder Stroke Sister Stroke Denies family history of Dementia Chronic kidney disease (CKD) Suicide Anesthesia complication Bleeding disorder Lung disease Social History Smoking and tobacco status: former smoker Quit status (tobacco): has quit using tobacco Year quit tobacco: 6 weeks ago Second hand smoke exposure: Yes Smoking risk assessment/counseling performed?: Yes Alcohol intake: former Year of sobriety/quit date alcohol: 1991 Desire information about alcohol rehabilitation?: No Counseling given: No Substance/Drug Use: never Desire information about substance/drug rehabilitation?: No Counseling given: No Adopted: No Caregiver/support person: No Lives independently: Yes Household members: spouse Housing: House Marital status: service: No Current occupational status: disabled Pets and animals: Yes Do you think of yourself as: Straight/Heterosexual Current gender identity: Male Vitals/I&O/Wt Last Vital Signs Temp 98.9 F 12/27/22 17:30 Pulse 74 12/27/22 19:20 Resp 20 H 12/27/22 19:00 BP 105/52 12/27/22 19:20 Pulse Ox 98 12/27/22 19:20 O2 Del Method BiPAP 12/27/22 19:20 O2 Flow Rate 8 12/27/22 16:54 FiO2 40 12/27/22 18:36 12/27/22 12/27/22 12/27/22 06:59 14:59 22:59 Intake Total 400 / 400 Balance 400 / 400 Weight last 48 hrs Weight 158.757 kg Physical Exam Narrative: Sepsis related exam No skin mottling No active confusion Currently on BiPAP GCS 15 Regular S1-S2 Abdomen soft Pleasant and cooperative With obese male Awake and alert Signs of fluid overload present at the bedside Nonfocal neuro exam GCS 15 Pleasant and cooperative Data 12/28/22 03:33 12/28/22 03:33 Micro: Microbiology 12/27/22 16:48 Blood Culture - Preliminary Blood SPECIMEN COLLECTED 12/27/22 16:38 Blood Culture - Preliminary Blood SPECIMEN COLLECTED A&P Assessment and plan (1) Chronic diastolic (congestive) heart failure: (2) Sepsis: (3) COVID-19 determined by clinical diagnostic criteria: (4) Goals of care, counseling/discussion: (5) Afib: (6) Essential (primary) hypertension: (7) Pneumonia: (8) CKD (chronic kidney disease) stage 3, GFR 30-59 ml/min: (9) Morbid obesity with BMI of 50.0-59.9, adult: (10) Chronic respiratory failure: Plan Sepsis related to pneumonia/covid Start septic bolus Lactic acid is high Septic criteria met with tachypnea tachycardia leukocytosis high lactic acid Start ceftriaxone and Zithromycin Judicious use of septic bolus considering underlying diagnosis of CHF, will give him 2 L, will give him 15 Ml/kg, hold diuretics Acute COPD exacerbation switch to BiPAP to decrease work of breathing At home uses 6 L and trilogy at night Secondary to COVID-19 Start remdesivir and Decadron Chronic kidney disease: Creatinine at baseline we will hold Entresto A-fib without RVR Continue amiodarone Continue Xarelto Airborne isolation DVT prophylaxis on board full Code Attestations Medical Necessity Statement*: More than 2 midnights anticipate Diagnoses Chronic diastolic (congestive) heart failure I50.32 Sepsis A41.9 COVID-19 determined by clinical diagnostic criteria U07.1 Goals of care, counseling/discussion Z71.89 Afib I48.91 Essential (primary) hypertension I10 Pneumonia J18.9 CKD (chronic kidney disease) stage 3, GFR 30-59 ml/min N18.30 Morbid obesity with BMI of 50.0-59.9, adult E66.01; Z68.43 Chronic respiratory failure J96.10
--- NOTE | 2022-12-27 19:28 | PC.NURSE ---
Report called to DEBI Rader in [facility]. All questions and concerns addressed at time of report.
[2022-12-27 19:41] LABS: Lactic Acid level (Lactate) 1.4 mmol/L (0.5-2.2)
[2022-12-27] MEDS: lactated ringers 1,000 ML 999 ML IV ×2 (20:29→22:53)
[2022-12-27 20:56] LABS: Estmated Average Glucose 154
[2022-12-27] MEDS: remdesivir 200 MG in sodium chloride 0.9% (100 ml) 60 ML 100 MG IV (21:01)
[2022-12-27 21:07] LABS: Glucose Point of Care 201 mg/dL (70-110)
[2022-12-27] MEDS: trazodone 100 mg Tablet PO (21:34)
[2022-12-28] VITALS (10 sets, daily range): BP systolic 103–138; BP diastolic 55–71; PULSE 58–69; RESP 18–23; TEMP 36.2–37.1; O2SAT 91–99
[2022-12-28 04:12] LABS: Basophils # 0.1 10^3/uL (0.0-0.1); Basophils % 0.3 %; Eosinophils # 0.1 10^3/uL (0.0-0.8); Eosinophils % 0.3 %; Hematocrit 33.3 % (37-53); Lymphocytes # 3.2 10^3/uL (0.8-4.8); Lymphocytes % 14.8 %; Mean Corpuscular HGB Conc 29.7 g/dL (30-55); Mean Corpuscular Hemoglobin 28.7 pg (27-33); Mean Corpuscular Volume 96.5 fl (82-101); Mean Platelet Volume 10.1 fL (7.4-10.4); Monocytes # 1.3 10^3/uL (0.2-0.9); Monocytes % 5.9 %; Neutrophils # 16.95 10^3/uL (1.8-7.7); Neutrophils % 78.2 %; Nucleated Red Blood Cells % 0 %; Platelet Count 153 10^3/cmm (157-399); Red Blood Count 3.45 10^6/uL (3.85-5.65); Red Cell Distribution Width 15.9 % (12.1-15.1); White Blood Count 21.69 10^3/uL (3.29-11.43)
[2022-12-28 04:42] LABS: Blood Urea Nitrogen 31 mg/dL (8-23); C Reactive Protein 88.4 mg/L (0.0-4.9); Calcium 8.4 mg/dL (8.5-10.5); Carbon Dioxide 23 mmol/L (22-29); Chloride 105 mmol/L (98-107); Glomerular Filtration Rate 38.4 mL/min (90-130); Glucose 135 mg/dL (65-115); Magnesium 2.1 mg/dL (1.7-2.3); Osmolality Calculated 299 mOsm/kg (285-295); Phosphorus 3.8 mg/dL (2.5-4.5); Sodium 140 mmol/L (136-145)
[2022-12-28 04:44] LABS: Anion Gap 16.4 (5-19); Potassium 4.4 mmol/L (3.5-5.1)
--- NOTE | 2022-12-28 07:43 | PC.PHAR ---
PTS [facility] [phone] VERIFIED PTS MEDICATIONS-[facility] STATES THE PT IS NO LONGER TAKING FENOFIBRATE 145MG EXT SHOWS LAST FILLED 03/25/22 30D/S-[facility] STATES THE HYDRALAZINE 100MG TID WAS DCED THIS PAST MONTH EXT SHOWS LAST FILLED 11/27/22 30D/S-[facility] STATES THE PT IS NO LONGER TAKING EFFEXOR XR 150MG DAILY EXT SHOWS LAST FILLED 10/23/22 30D/S-
[2022-12-28] MEDS: azithromycin 250 mg Tablet 500 MG PO (09:00)
[2022-12-28] MEDS: amiodarone 200 mg Tablet PO (09:00)
[2022-12-28] MEDS: levothyroxine 175 mcg Tablet PO (09:00)
[2022-12-28] MEDS: dexamethasone 4 mg Tablet 6 MG PO (09:00)
[2022-12-28] MEDS: rivaroxaban 10 mg Tablet 20 MG PO (09:00)
[2022-12-28] MEDS: cefTRIAXone 1,000 MG in sodium chloride 0.9% (plus) 50 ML 100 MG IV (09:01)
--- NOTE | 2022-12-28 09:22 | PM.PN ---
Subjective Subjective: No fever overnight Leukocytosis around 20,000 Patient is feeling better Used BiPAP overnight Currently eating breakfast Patient was asking if he could go home today Vitals/I&O/Wt Last Vital Signs Temp 98.8 F 12/28/22 04:36 Pulse 69 12/28/22 08:27 Resp 21 H 12/28/22 08:27 BP 106/55 12/28/22 08:27 Pulse Ox 99 12/28/22 08:27 O2 Del Method Nasal Cannula 12/28/22 08:03 O2 Flow Rate 6 12/28/22 08:03 FiO2 45 12/28/22 03:45 12/27/22 12/28/22 12/28/22 22:59 06:59 14:59 Intake Total 1500.00 / 1500.00 2049 3550.00 Balance 1500.00 / 1500.00 2049 3550.00 Weight last 48 hrs Weight 158.757 kg Physical Exam Narrative: Awake and alert Morbidly obese Signs of fluid overload present Currently on 6 L of oxygen Eating breakfast Sitting at the bedside Pleasant and cooperative Data 12/28/22 03:33 12/28/22 03:33 Micro: Microbiology 12/28/22 02:03 Legionella Urinary Antigen - Final Urine,Voided 12/27/22 16:48 Blood Culture - Preliminary Blood SPECIMEN COLLECTED 12/27/22 16:38 Blood Culture - Preliminary Blood SPECIMEN COLLECTED A&P Assessment and plan (1) COVID-19 determined by clinical diagnostic criteria: (2) Sepsis: (3) Chronic diastolic (congestive) heart failure: (4) Morbid obesity with BMI of 50.0-59.9, adult: (5) CKD (chronic kidney disease) stage 3, GFR 30-59 ml/min: (6) Anemia: (7) Pneumonia: (8) Essential (primary) hypertension: (9) Afib: (10) Hyperkalemia: (11) Obesity hypoventilation syndrome: (12) EDGAR (obstructive sleep apnea): (13) Chronic respiratory failure: Plan Sepsis related to pneumonia/COVID-19 Continue antibiotics and remdesivir Decadron Currently on 6 L which is his home requirement Use BiPAP overnight Feeling better this morning No fever overnight Acute COPD exacerbation Monitor closely for now Patient uses 6 L of oxygen at baseline and then trilogy, can bring his trilogy No visitors allowed Diastolic CHF exacerbation patient received septic bolus yesterday I will give him Lasix starting today Obesity hypoventilation Chronic kidney disease creatinine at baseline, continue holding Entresto Type 2 diabetes hemoglobin A1c around 7 Metabolic acidosis: Improved Full code Consistent carb cardiac diet DVT prophylaxis continued patient has history of A-fib Attestations Medical Necessity Statement*: Discharge likely tomorrow Diagnoses COVID-19 determined by clinical diagnostic criteria U07.1 Sepsis A41.9 Chronic diastolic (congestive) heart failure I50.32 Morbid obesity with BMI of 50.0-59.9, adult E66.01; Z68.43 CKD (chronic kidney disease) stage 3, GFR 30-59 ml/min N18.30 Anemia D64.9 Pneumonia J18.9 Essential (primary) hypertension I10 Afib I48.91 Hyperkalemia E87.5 Obesity hypoventilation syndrome E66.2 EDGAR (obstructive sleep apnea) G47.33 Chronic respiratory failure J96.10
[2022-12-28] MEDS: FUROsemide 10 mg/mL SDV 10mL 60 MG IVP (09:54)
--- NOTE | 2022-12-28 10:01 | PC.CHAP ---
Pastoral Care Encounter/Spiritual Assessment Type of Contact [] Declined lab associate visit [] Patient/Family/Request visit [] Outpatient visit [] Follow-up visit [] Physician referral [] Code/Alert [] Routine visit [] Staff referral [] Actively dying [] Patient sleeping [] Family support [] [] Out of room [] Palliative care [] [] Receiving care in room [] Pre-surgical visit [] Trauma [] Long length of stay [] ICU visit [x] Other: covid Relational/Emotional Strength [] Patient feels connected with others/family/visitors/staff [] Distress [] Loneliness/isolation [] Abandonment Spirituality of Patient [] Person of Monalisa [] Attends Congregation of their Monalisa [] Believes in Prayer [] Reads Bible or Gnosticist materials [] There are Spiritual issues to be addressed Rn Hematology Interventions [] Prayer [] Active listening [] Non-anxious presence [] Spiritual/emotional support [] Crisis/trauma care [] Spiritual counseling [] Bereavement support [] Provided bereavement packet [] Provided Bible/devotional materials [] Provided toy/stuffed animal, coloring book to patient or family member [] Provided Communion [] Anointing/[place] [] Salvation [] Completed spiritual assessment [] Other: Impact on Illness or Injury [] Angry [] Fearful [] Anxious [] Often cries [] Exhaustion [] Unable to work [] Unable to attend oriental orthodox [] Unable to walk/stand [] Unable to read [] Unable to drive [] Unable to eat/drink [] Unable to sleep [] Unable to be with family [] Patient intubated [] Other: Summary covid Time spent with patient 5 mins
[2022-12-28 11:30] LABS: Glucose Point of Care 172 mg/dL (70-110)
[2022-12-28] MEDS: insulin lispro 100 unit/1 mL SUBCUT ×2 (11:32→17:25)
[2022-12-28 17:00] LABS: Glucose Point of Care 260 mg/dL (70-110)
[2022-12-28] MEDS: remdesivir 100 MG in sodium chloride 0.9% (100 ml) 100 ML IV (21:13)
[2022-12-28] MEDS: trazodone 100 mg Tablet PO (21:15)
[2022-12-28 21:39] LABS: Glucose Point of Care 296 mg/dL (70-110)
[2022-12-29 00:32] VITALS: BP 131/62; PULSE 56; RESP 19; TEMP 36.7; O2SAT 97
[2022-12-29 04:01] LABS: Basophils % 0.1 %; Hematocrit 34.6 % (37-53); Lymphocytes # 1.6 10^3/uL (0.8-4.8); Lymphocytes % 10.5 %; Mean Corpuscular HGB Conc 30.9 g/dL (30-55); Mean Corpuscular Hemoglobin 28.2 pg (27-33); Mean Corpuscular Volume 91.1 fl (82-101); Monocytes # 0.4 10^3/uL (0.2-0.9); Monocytes % 2.9 %; Neutrophils # 13.09 10^3/uL (1.8-7.7); Nucleated Red Blood Cells % 0 %; Platelet Count 180 10^3/cmm (157-399); Red Cell Distribution Width 15.4 % (12.1-15.1); White Blood Count 15.23 10^3/uL (3.29-11.43)
[2022-12-29 04:23] LABS: Anion Gap 16.3 (5-19); Blood Urea Nitrogen 35 mg/dL (8-23); Carbon Dioxide 25 mmol/L (22-29); Chloride 103 mmol/L (98-107); Glucose 239 mg/dL (65-115); Osmolality Calculated 306 mOsm/kg (285-295); Potassium 4.3 mmol/L (3.5-5.1); Sodium 140 mmol/L (136-145)
[2022-12-29 04:50] VITALS: BP 120/57; PULSE 60; RESP 18; TEMP 36.4; O2SAT 96
[2022-12-29 05:45] VITALS: PULSE 61
[2022-12-29 06:22] LABS: Glucose Point of Care 253 mg/dL (70-110)
[2022-12-29 08:00] VITALS: BP 141/70; PULSE 71; TEMP 36.5; O2SAT 95
[2022-12-29 08:13] VITALS: PULSE 66; RESP 17; O2SAT 98
[2022-12-29] MEDS: rivaroxaban 10 mg Tablet 20 MG PO (08:39)
[2022-12-29] MEDS: azithromycin 250 mg Tablet 500 MG PO (08:39)
[2022-12-29] MEDS: levothyroxine 175 mcg Tablet PO (08:39)
[2022-12-29] MEDS: insulin lispro 100 unit/1 mL SUBCUT (08:39)
[2022-12-29] MEDS: amiodarone 200 mg Tablet PO (08:39)
[2022-12-29] MEDS: cefTRIAXone 1,000 MG in sodium chloride 0.9% (plus) 50 ML 100 MG IV (08:39)
[2022-12-29] MEDS: FUROsemide 10 mg/mL SDV 10mL 60 MG IVP (08:40)
--- NOTE | 2022-12-29 08:53 | P.DS_ITS ---
Discharge Providers Date of Admission: 12/27/22 18:58 Date of Discharge: December 29, 2022 Attending Provider at Admission: Maria R Kwong MD Attending Provider at Discharge: Maria R Kwong MD Primary Care Provider: YONATHAN Samuel Diagnoses at Discharge Discharge Diagnosis (1) COVID-19 determined by clinical diagnostic criteria: Status: Acute (2) Sepsis: Status: Acute (3) Chronic diastolic (congestive) heart failure: Status: Chronic (4) Morbid obesity with BMI of 50.0-59.9, adult: Status: Chronic (5) CKD (chronic kidney disease) stage 3, GFR 30-59 ml/min: Status: Chronic (6) Anemia: Status: Acute (7) Pneumonia: Status: Acute (8) Essential (primary) hypertension: Status: Chronic (9) Afib: Status: Acute (10) Hyperkalemia: Status: Acute (11) Obesity hypoventilation syndrome: Status: Acute (12) EDGAR (obstructive sleep apnea): Status: Chronic (13) Chronic respiratory failure: Status: Chronic Reason for Visit Reason for Visit: low bp/low oxygen/confusion Hospital Course Hospital Course 62-year-old male who was admitted for management evaluation of COVID-19 related COPD exacerbation, he does have obesity hypoventilation syndrome has trilogy at home and uses 6 L of oxygen at baseline, patient was put on BiPAP he was given septic judicious bolus, his symptoms improved next day and he was started on Lasix which she normally takes on daily basis. Patient remained afebrile, leukocytosis improved significantly, patient is feeling much better he is hemodynamically stable, cultures negative, he is wanting to go home and uses trilogy at night and use 6 L of oxygen in the morning he does have all inhalers with refills. I would only add antibiotics at the time of discharge. Patient has been asked to quarantine for at least 5 days in total. He has been suffering with the symptoms for last 4 days. Physical Exam Narrative: GCS 15 Doing well on 6 L Morbid obesity Sitting at the bedside eating breakfast at the bedside Pleasant and cooperative No audible stridor or wheezing Discharge Data Studies Completed and Pending Completed Studies During Hospitalization Category Date Time Status XR chest 1V portable [id number] Stat Exams 12/27/22 16:09 Completed Pending at discharge Category Date Time Status Blood Culture Stat Lab 12/27/22 16:48 Results Sputum Culture and Gram Stain Stat Lab 12/27/22 17:57 Results Sputum Culture and Gram Stain Stat Lab 12/27/22 19:30 Results Radiology Impressions Chest X-Ray 12/27/22 16:09 IMPRESSION: 1. Patchy infiltrate is seen in the right base. 2. Questionable retrocardiac infiltrate in the left base. Laboratory Results WBC 15.23 10^3/uL (3.29-11.43) H 12/29/22 03:55 RBC 3.80 10^6/uL (3.85-5.65) L 12/29/22 03:55 Hgb 10.70 g/dL (11.27-16.99) L 12/29/22 03:55 Hct 34.6 % (37-53) L 12/29/22 03:55 MCV 91.1 fl (82-101) 12/29/22 03:55 MCH 28.2 pg (27-33) 12/29/22 03:55 MCHC 30.9 g/dL (30-55) 12/29/22 03:55 RDW 15.4 % (12.1-15.1) H 12/29/22 03:55 Plt Count 180 10^3/cmm (157-399) 12/29/22 03:55 MPV 10.0 fL (7.4-10.4) 12/29/22 03:55 Neut % (Auto) 86.0 % 12/29/22 03:55 Lymph % (Auto) 10.5 % 12/29/22 03:55 Brooke % (Auto) 2.9 % 12/29/22 03:55 Eos % (Auto) 0.0 % 12/29/22 03:55 Baso % (Auto) 0.1 % 12/29/22 03:55 Neut # (Auto) 13.09 10^3/uL (1.8-7.7) H 12/29/22 03:55 Lymph # (Auto) 1.6 10^3/uL (0.8-4.8) 12/29/22 03:55 Brooke # (Auto) 0.4 10^3/uL (0.2-0.9) 12/29/22 03:55 Eos # (Auto) 0.0 10^3/uL (0.0-0.8) 12/29/22 03:55 Baso # (Auto) 0.0 10^3/uL (0.0-0.1) 12/29/22 03:55 Nucleated RBC % (auto) 0 % 12/29/22 03:55 Nucleated RBCs # 0.0 /100WBC 12/29/22 03:55 Specimen Type Arterial 12/27/22 16:08 Sample Site Radial, left 12/27/22 16:08 ABG pH 7.36 (7.35-7.45) 12/27/22 16:08 ABG pCO2 43.2 mmHg (35-45) 12/27/22 16:08 ABG pO2 74.1 mmHg (80.0-100.0) L 12/27/22 16:08 ABG HCO3 24.4 mmol/L (22-26) 12/27/22 16:08 ABG Base Excess -1.1 mmol/L (-2.0-2.0) 12/27/22 16:08 Avila Test Pos 12/27/22 16:08 Hematocrit 35.1 % (42-52) L 12/27/22 16:08 Hgb O2 Saturation 91.2 % (95-100) L 12/27/22 16:08 Carboxyhemoglobin 3.9 %THgb (0.4-20.1) 12/27/22 16:08 Methemoglobin 0.6 % (0.4-1.5) 12/27/22 16:08 Total Hemoglobin 11.5 g/dL (14-18) L 12/27/22 16:08 O2 Delivery Device Nc 12/27/22 16:08 O2 Liters/Min 8.0 % 12/27/22 16:08 Training Instructor ID Monro 12/27/22 16:08 Sodium 140 mmol/L (136-145) 12/29/22 03:55 Potassium 4.3 mmol/L (3.5-5.1) 12/29/22 03:55 Chloride 103 mmol/L (98-107) 12/29/22 03:55 Carbon Dioxide 25 mmol/L (22-29) 12/29/22 03:55 Anion Gap 16.3 (5-19) 12/29/22 03:55 BUN 35 mg/dL (8-23) H 12/29/22 03:55 Creatinine 1.7 mg/dL (0.7-1.2) H 12/29/22 03:55 GFR Calculation 41.0 mL/min (90-130) L 12/29/22 03:55 Glucose 239 mg/dL (65-115) H 12/29/22 03:55 POC Glucose 253 mg/dL (70-110) H 12/29/22 06:14 Estimat Average Glucose 154 12/27/22 16:38 Hemoglobin A1c 7.0 % (4.0-6.0) H 12/27/22 16:38 Calculated Osmolality 306 mOsm/kg (285-295) H 12/29/22 03:55 Lactic Acid 2.5 mmol/L (0.5-2.2) H 12/27/22 16:38 Lactic Acid (Sepsis) 1.4 mmol/L (0.5-2.2) 12/27/22 19:19 Calcium 9.0 mg/dL (8.5-10.5) 12/29/22 03:55 Phosphorus 3.8 mg/dL (2.5-4.5) 12/28/22 03:33 Magnesium 2.1 mg/dL (1.7-2.3) 12/28/22 03:33 C-Reactive Protein 88.4 mg/L (0.0-4.9) H 12/28/22 03:33 NT-Pro-B Natriuret Pep 1312 pg/mL (0-125) H 12/27/22 16:38 Influenza Type A Ag negative (Negative) 12/27/22 16:55 Influenza Type B Ag negative (Negative) 12/27/22 16:55 SARS-CoV-2 Ag (Rapid) positive (Negative) H 12/27/22 17:57 Vitals Last Vital Signs Temp 97.7 F 12/29/22 08:00 Pulse 66 12/29/22 08:13 Resp 17 12/29/22 08:13 BP 141/70 12/29/22 08:00 Pulse Ox 98 12/29/22 08:13 O2 Del Method Nasal Cannula 12/29/22 08:13 O2 Flow Rate 6 12/29/22 08:13 FiO2 45 12/28/22 20:34 Discharge Plan Discharge Patient Disposition: Home Condition: Stable Prescriptions: New levofloxacin 750 mg tablet 750 mg PO DAILY 5 Days Qty: 5 0RF doxycycline hyclate 100 mg tablet 100 mg PO BID 7 Days Qty: 14 0RF Continued ipratropium-albuterol 0.5 mg-3 mg(2.5 mg base)/3 mL solution for nebulization 3 ml inhalation Q4H PRN (Reason: wheezing) Qty: 180 6RF Entresto 24-26 mg tablet 1 tab PO BID Qty: 60 0RF buspirone 15 mg tablet 15 mg PO BID Qty: 60 2RF Farxiga 5 mg tablet 5 mg PO QAM Qty: 30 2RF Anoro Ellipta 62.5-25 mcg/actuation blister with device 1 inh inhalation Q24H Qty: 60 2RF trazodone 100 mg tablet 100 mg PO BEDTIME Qty: 30 2RF colesevelam [WelChol] 625 mg tablet 1,875 mg PO BID Qty: 540 3RF potassium chloride 20 mEq tablet extended release 20 meq PO BID Qty: 180 3RF Hold Instructions: Resume on 04/15/22. (DME) pen needle, diabetic [TechLITE Pen Needle] 31 gauge x 5/16 needle See Rx Instructions .ROUTE .MEDSUPPLY Qty: 100 5RF Rx Instructions: Three times a day (DME) Oxygen Pendant See Rx Instructions .Route .MEDSUPPLY Qty: 1 0RF Rx Instructions: As directed bumetanide 2 mg tablet 2 mg PO BID Qty: 60 6RF levothyroxine 175 mcg tablet 175 mcg PO QAM Zyrtec 10 mg Tablet 10 mg PO QAM amiodarone 200 mg tablet 200 mg PO QAM Vitamin C 500 mg Tablet 500 mg PO QAM amlodipine 10 mg tablet 10 mg PO QAM FeroSul 325 mg (65 mg iron) tablet 325 mg PO BID montelukast 10 mg tablet 10 mg PO QAM rosuvastatin 20 mg tablet 20 mg PO QAM Vicks NyQuil Severe Cold-Flu 6.25-5-10-325 mg/15 mL Liquid 15 - 30 ml PO Q6H PRN (Reason: Cough) Victoza 3-Leonides 0.6 mg/0.1 mL (18 mg/3 mL) pen injector 1.8 mg SUBCUT QAM Xarelto 20 mg tablet 20 mg PO QAM [facility] (honey) 100 % paste See Rx Instructions .ROUTE .COMPLEX Rx Instructions: APPLY TOPICALLY TO THE AFFECTED AREA TWICE DAILY TO LEFT LATERAL THIGH NEEDED Tresiba FlexTouch U-100 100 unit/mL (3 mL) insulin pen 35 unit SUBCUT QAM Discharge Orders: Discharge Order (Routine); Ordered 12/29/22 Ordered By: Maria R Kwong Referrals: Jeremiah Griffin FNP-C [Primary Care Provider] - 1 week (Your follow up appointment is scheduled on 01/04/23 at 11:40pm.) Discharge Diet: Cardiac and Diabetic Patient Instructions: Heart Failure (DC), A-fib (Atrial Fibrillation) (DC), COPD (Chronic Obstructive Pulmonary Disease) (DC), How to Recover from COVID-19 at Home (ED), Social Distancing Guidelines for COVID-19 (DC), CHF Stoplight, COPD Stoplight, Opioid Safety Discharge Attestations Time Spent in Discharge Care*: greater than 30 min Status at Discharge: Cognitive status at discharge: cognitively intact , Behavioral status at discharge: cooperative , Quality Metrics Clinical Quality Measures [ No reported AMI, CVA or VTE this stay] Coding Level of Care Code Acute Code for Chg Fwd Diagnoses COVID-19 determined by clinical diagnostic criteria U07.1 Sepsis A41.9 Chronic diastolic (congestive) heart failure I50.32 Morbid obesity with BMI of 50.0-59.9, adult E66.01; Z68.43 CKD (chronic kidney disease) stage 3, GFR 30-59 ml/min N18.30 Anemia D64.9 Pneumonia J18.9 Essential (primary) hypertension I10 Afib I48.91 Hyperkalemia E87.5 Obesity hypoventilation syndrome E66.2 EDGAR (obstructive sleep apnea) G47.33 Chronic respiratory failure J96.10
== END 2022-12-29 10:28 | disposition home or self-care (01) | DRG 871 ==
LOC: ER 18:32 → CSU 19:07
PROVIDERS: Admitting Provider Internal Medicine; Emergency Provider Emergency Medicine; PCP Nurse Practitioner; Visit Provider Internal Medicine
DX: A41.9 Sepsis, unspecified organism (principal); I50.33 Acute on chronic diastolic (congestive) heart failure; U07.1 COVID-19; J18.9 Pneumonia, unspecified organism; J96.22 Acute and chronic respiratory failure with hypercapnia; J44.0 Chronic obstructive pulmonary disease with (acute) lower respiratory infection; J44.1 Chronic obstructive pulmonary disease with (acute) exacerbation; E66.2 Morbid (severe) obesity with alveolar hypoventilation; Z68.42 Body mass index [BMI] 45.0-49.9, adult; I13.0 Hypertensive heart and chronic kidney disease with heart failure and stage 1 through stage 4 chronic kidney disease, or unspecified chronic kidney disease; I48.20 Chronic atrial fibrillation, unspecified; E87.20 Acidosis, unspecified; Z99.81 Dependence on supplemental oxygen; Z79.01 Long term (current) use of anticoagulants; Z79.891 Long term (current) use of opiate analgesic; Z79.85 Long-term (current) use of injectable non-insulin antidiabetic drugs; N18.30 Chronic kidney disease, stage 3 unspecified; E11.22 Type 2 diabetes mellitus with diabetic chronic kidney disease; D63.1 Anemia in chronic kidney disease; I27.20 Pulmonary hypertension, unspecified; I25.10 Atherosclerotic heart disease of native coronary artery without angina pectoris; Z79.4 Long term (current) use of insulin; F17.200 Nicotine dependence, unspecified, uncomplicated; I25.2 Old myocardial infarction; Z86.14 Personal history of Methicillin resistant Staphylococcus aureus infection; E03.9 Hypothyroidism, unspecified; K21.9 Gastro-esophageal reflux disease without esophagitis
CPT/HCPCS: 36415; 36416; 71045; 80048; 82805; 82962; 83036; 83605; 83735; 83880; 84100; 85025; 86140; 86403; 87040; 87070; 87205; 87426; 87449; 87804; 93005; 94640; 94660; 96365; 96367; 96372; 96375; 96376; 99291; J0248; J0696; J1815; J1940; J2543; J3372; J7120; J8540; Q0144

== ENCOUNTER → 2023-01-16 08:08 | Outpatient (BNVA) | payer MEDICARE, MEDICAID, SELFPAY | PROVIDERS: PCP Nurse Practitioner; Visit Provider Nurse Practitioner | DX: E11.65 Type 2 diabetes mellitus with hyperglycemia (principal); N17.9 Acute kidney failure, unspecified; N18.9 Chronic kidney disease, unspecified; Z79.4 Long term (current) use of insulin | CPT/HCPCS: 80048; 85025 ==

== ENCOUNTER → 2023-01-23 10:13 | Outpatient (BNVA) | payer MEDICARE, MEDICAID, SELFPAY | PROVIDERS: PCP Nurse Practitioner; Visit Provider Nurse Practitioner | DX: N18.30 Chronic kidney disease, stage 3 unspecified (principal) | CPT/HCPCS: 80048 ==

== ENCOUNTER → 2023-02-26 13:47 | Outpatient (BNVA) | payer MEDICARE, MEDICAID, SELFPAY | PROVIDERS: PCP Nurse Practitioner; Visit Provider Nurse Practitioner Family | DX: I25.10 Atherosclerotic heart disease of native coronary artery without angina pectoris (principal); I48.20 Chronic atrial fibrillation, unspecified; Z79.01 Long term (current) use of anticoagulants; I13.0 Hypertensive heart and chronic kidney disease with heart failure and stage 1 through stage 4 chronic kidney disease, or unspecified chronic kidney disease; E11.22 Type 2 diabetes mellitus with diabetic chronic kidney disease; E11.65 Type 2 diabetes mellitus with hyperglycemia; N18.30 Chronic kidney disease, stage 3 unspecified; I50.32 Chronic diastolic (congestive) heart failure; Z87.891 Personal history of nicotine dependence; Z79.4 Long term (current) use of insulin | CPT/HCPCS: 99214 ==

== ENCOUNTER 2023-03-15 09:01 | Outpatient (CLI) | payer MEDICARE, MEDICAID, SELFPAY ==
--- NOTE | 2023-03-15 09:09 | US_ITS ---
WS: [id number] Exam: US renal BI* [id number] Date/Time of Exam: 03/15/2023 9:12 AM Reason For Exam: ACUTE INJURY OF KIDNEY/CHRONIC KIDNEY DZ STAGE 2 The kidneys are of normal size, shape and location. No sign of solid or cystic renal mass. No renal o bstruction. The RIGHT kidney measures 10.93 x 4.85 x 5.6 cm. Cortical thickness of the RIGHT kidney i s 1.6 cm. The LEFT kidney measures 10.7 x 6.5 x 6.62 cm. Cortical thickness of the LEFT kidney is 1.9 6 cm. The urinary bladder is smooth in contour and appears normal. IMPRESSION: 1. Unremarkable kidneys and urinary bladder.
[2023-03-15 09:58] LABS: Basophils # 0.1 10^3/uL (0.0-0.1); Basophils % 0.9 %; Eosinophils # 0.6 10^3/uL (0.0-0.8); Eosinophils % 5.8 %; Hematocrit 41.9 % (37-53); Lymphocytes # 2.7 10^3/uL (0.8-4.8); Lymphocytes % 26.3 %; Mean Corpuscular HGB Conc 31.5 g/dL (30-55); Mean Corpuscular Hemoglobin 28.6 pg (27-33); Mean Corpuscular Volume 90.7 fl (82-101); Mean Platelet Volume 9.8 fL (7.4-10.4); Monocytes # 0.7 10^3/uL (0.2-0.9); Monocytes % 6.8 %; Neutrophils # 6.16 10^3/uL (1.8-7.7); Neutrophils % 59.5 %; Nucleated Red Blood Cells % 0 %; Platelet Count 226 10^3/cmm (157-399); Red Blood Count 4.62 10^6/uL (3.85-5.65); White Blood Count 10.34 10^3/uL (3.29-11.43)
[2023-03-15 10:07] LABS: Bilirubin Urine Neg (Negative); Blood Urine Neg (Negative); Glucose Urine UA 4+ (Normal); Ketones Urine Negative (Negative); Leukocyte Esterase Urine Negative (Negative); Nitrate Urine Negative (Negative); Protein Urine Neg (Negative); Urine Appearance Clear (CLEAR); Urine Color Colorless (Yellow); Urobilinogen Urine Norm (Negative); pH Urine 6 (5-7)
[2023-03-15 10:18] LABS: Albumin Level 3.7 g/dL (3.5-5.2); Blood Urea Nitrogen 34 mg/dL (8-23); Calcium 9.3 mg/dL (8.5-10.5); Carbon Dioxide 31 mmol/L (22-29); Chloride 101 mmol/L (98-107); Glucose 232 mg/dL (65-115); Phosphorus 3.8 mg/dL (2.5-4.5); Sodium 138 mmol/L (136-145)
[2023-03-15 10:21] LABS: Add Urine Culture? No
[2023-03-15 10:22] LABS: Calcium 9.2 mg/dL (8.5-10.5)
[2023-03-15 10:27] LABS: Parathyroid Hormone 63.7 pg/mL (15-65)
[2023-03-15 10:28] LABS: Creatinine Urine, Random 18 mg/dL (39-259); Microalbumin Random Urine 19 ug/dL (0-20)
[2023-03-15 10:31] LABS: Microalbum Creatinine Ratio Ur 1056 mg/dL (0-20)
[2023-03-15 13:30] LABS: Estmated Average Glucose 243; Hemoglobin A1C 10.1 % (4.0-6.0)
== END 2023-03-15 09:02 | disposition home or self-care (01) ==
LOC: RAD 09:03
PROVIDERS: PCP Nurse Practitioner; Visit Provider Internal Medicine Nephrology
DX: E11.22 Type 2 diabetes mellitus with diabetic chronic kidney disease (principal); N18.2 Chronic kidney disease, stage 2 (mild); E11.65 Type 2 diabetes mellitus with hyperglycemia; N17.9 Acute kidney failure, unspecified
CPT/HCPCS: 36415; 76770; 80069; 81001; 82044; 82310; 83036; 83970; 85025

== ENCOUNTER → 2023-04-10 09:30 | Outpatient (BNVA) | payer MEDICARE, MEDICAID, SELFPAY | PROVIDERS: PCP Nurse Practitioner; Visit Provider Nurse Practitioner | DX: E11.65 Type 2 diabetes mellitus with hyperglycemia (principal); Z79.4 Long term (current) use of insulin | CPT/HCPCS: 80053; 80061; 81003; 82607; 83036; 84443 ==

== ENCOUNTER → 2023-04-19 14:11 | Outpatient (BNVA) | payer MEDICARE, MEDICAID, SELFPAY | PROVIDERS: PCP Nurse Practitioner; Visit Provider Internal Medicine Pulmonary Disease | DX: I50.32 Chronic diastolic (congestive) heart failure (principal); J98.4 Other disorders of lung; E66.2 Morbid (severe) obesity with alveolar hypoventilation; J98.59 Other diseases of mediastinum, not elsewhere classified; Z99.81 Dependence on supplemental oxygen; Z68.43 Body mass index [BMI] 50.0-59.9, adult; F17.210 Nicotine dependence, cigarettes, uncomplicated | CPT/HCPCS: 99214 ==

== ENCOUNTER 2023-05-28 12:29 | Outpatient (CLI) | payer MEDICARE, MEDICAID, SELFPAY ==
--- NOTE | 2023-05-28 12:30 | CT_ITS ---
WS: [id number] LDCT LUNG CANCER SCREENING TECHNIQUE: Noncontrast CT of the chest with coronal and sagittal reformatted images. CLINICAL INFORMATION: Z87.891 - Personal history of nicotine dependence COMPARISON: CT chest 04/24/2022 and 03/02/2022 DLP: 362.59 mGy.cm DIvol: Mean CTDIvol: 9.10 (mGy) All CT scans at [facility] use at least one of these dose optimization techniques: automat ed exposure control; mA and/or kV adjustment per patient size (includes targeted exams where dose is matched to clinical indication); or iterative reconstruction. FINDINGS: Cardiomegaly. Multinodular thyroid. Aortic calcification. Coronary calcification. Calcified mediastin al hilar and subcarinal lymph nodes. Splenic granulomas. Small esophageal hernia. Small RIGHT adrenal adenoma. Partially visualized low-at tenuation lesion adjacent to the LEFT adrenal gland may represent small bowel but indeterminant and o nly partially visualized measuring 3.5 cm. Recommend further evaluation with CT abdomen pelvis. No re cent CT abdomen pelvis studies. A few calcified granulomas. Atelectasis in the lung bases. Subsegmental atelectasis in the lingula an d RIGHT middle lobe. Shallow inspiration. Hypertrophic changes thoracic spine with a few endplate Vance morl's nodes. IMPRESSION: Indeterminate partially visualized ovoid lesion in the upper abdomen adjacent to the adre nal gland measuring 3.5 cm. Recommend further evaluation with contrast-enhanced CT abdomen pelvis. No recent studies for comparison. CT/CT lung screening [id number] LUNG-RADS: 2S-Benign Appearance or Behavior with Significant Findings FOLLOW UP: 12 Month: Continue annual screening with LDCT
== END 2023-05-28 12:30 | disposition home or self-care (01) ==
LOC: RAD 12:30
PROVIDERS: PCP Nurse Practitioner; Visit Provider Internal Medicine Pulmonary Disease
DX: Z12.2 Encounter for screening for malignant neoplasm of respiratory organs (principal); Z87.891 Personal history of nicotine dependence; J84.10 Pulmonary fibrosis, unspecified; J98.11 Atelectasis; R93.5 Abnormal findings on diagnostic imaging of other abdominal regions, including retroperitoneum
CPT/HCPCS: 71271

== ENCOUNTER → 2023-06-12 11:26 | Outpatient (BNVA) | payer MEDICARE, MEDICAID, SELFPAY | PROVIDERS: PCP Nurse Practitioner; Visit Provider Internal Medicine Cardiovascular Disease | DX: R07.9 Chest pain, unspecified (principal); I48.91 Unspecified atrial fibrillation; I25.10 Atherosclerotic heart disease of native coronary artery without angina pectoris; I48.20 Chronic atrial fibrillation, unspecified; E78.2 Mixed hyperlipidemia; I50.32 Chronic diastolic (congestive) heart failure; Z79.01 Long term (current) use of anticoagulants; Z79.899 Other long term (current) drug therapy; F17.210 Nicotine dependence, cigarettes, uncomplicated; R94.31 Abnormal electrocardiogram [ECG] [EKG] | CPT/HCPCS: 93005; 99214 ==

== ENCOUNTER → 2023-07-06 09:19 | Outpatient (BNVA) | payer MEDICARE, MEDICAID, SELFPAY | PROVIDERS: PCP Nurse Practitioner; Visit Provider Nurse Practitioner | DX: Z79.899 Other long term (current) drug therapy (principal); N18.32 Chronic kidney disease, stage 3b; E11.65 Type 2 diabetes mellitus with hyperglycemia; Z79.4 Long term (current) use of insulin; E11.22 Type 2 diabetes mellitus with diabetic chronic kidney disease | CPT/HCPCS: 80053; 80061; 80069; 82043; 82306; 82310; 83036; 83970; 84443; 85025 ==

== ENCOUNTER → 2023-07-20 08:45 | Outpatient (BNVA) | payer MEDICARE, MEDICAID, SELFPAY | PROVIDERS: PCP Nurse Practitioner; Visit Provider Registered Nurse | DX: N18.32 Chronic kidney disease, stage 3b (principal) | CPT/HCPCS: 80069 ==

== ENCOUNTER → 2023-10-10 08:54 | Outpatient (BNVA) | payer MEDICARE, MEDICAID, SELFPAY | PROVIDERS: PCP Nurse Practitioner; Visit Provider Nurse Practitioner | DX: E11.22 Type 2 diabetes mellitus with diabetic chronic kidney disease (principal); I11.0 Hypertensive heart disease with heart failure; I50.32 Chronic diastolic (congestive) heart failure; N18.32 Chronic kidney disease, stage 3b; E03.9 Hypothyroidism, unspecified; E11.65 Type 2 diabetes mellitus with hyperglycemia; Z79.4 Long term (current) use of insulin; Z79.899 Other long term (current) drug therapy | CPT/HCPCS: 80053; 80061; 82306; 83036; 85025 ==

== ENCOUNTER 2023-10-26 15:47 | Outpatient (CLI) | payer MEDICARE, SELFPAY ==
--- NOTE | 2023-10-26 15:54 | XR_ITS ---
WS: [id number] XR hip RT 2-3V wo/w pel* [id number] REASON FOR EXAM: M54.50 - Low back pain, unspecified FINDINGS: AP view is significantly underexposed over the hip joint. No acute fracture or focal bone lesion. There appears to be mild to moderate narrowing of the joint space with moderate subchondral sclerosis and osteophytosis. No definite subchondral bone change in the femoral head. XR/XR hip RT 2-3V wo/w pel* [id number] IMPRESSION: Diagnostic quality of the images are somewhat limited. Moderate osteoarthritis of the right hip.
--- NOTE | 2023-10-26 15:54 | XR_ITS ---
WS: [id number] XR lumbar spine 2-3V* [id number] REASON FOR EXAM: M54.50 - Low back pain, unspecified FINDINGS: Relatively normal lumbar spine curvatures. No focal vertebral body abnormality. Mild narrowing of the L4-L5 disc space. Moderate narrowing of the L5-S1 disc space. No significant listhesis. Moderate degenerative change in the facet joints L4-S1. XR/XR lumbar spine 2-3V* [id number] IMPRESSION: Degenerative spondylosis of the lumbar spine as above.
== END 2023-10-26 15:48 | disposition home or self-care (01) ==
LOC: RAD 15:49
PROVIDERS: PCP Nurse Practitioner; Visit Provider Nurse Practitioner
DX: M48.061 Spinal stenosis, lumbar region without neurogenic claudication (principal); M48.08 Spinal stenosis, sacral and sacrococcygeal region; M47.896 Other spondylosis, lumbar region; M47.898 Other spondylosis, sacral and sacrococcygeal region; M16.11 Unilateral primary osteoarthritis, right hip; M79.604 Pain in right leg; M54.50 Low back pain, unspecified
CPT/HCPCS: 72100; 73502

== ENCOUNTER → 2023-12-11 11:45 | Outpatient (BNVA) | payer MEDICARE, SELFPAY | PROVIDERS: PCP Nurse Practitioner; Visit Provider Internal Medicine Cardiovascular Disease | DX: I48.20 Chronic atrial fibrillation, unspecified (principal); E78.2 Mixed hyperlipidemia; I25.10 Atherosclerotic heart disease of native coronary artery without angina pectoris; I10 Essential (primary) hypertension; I50.32 Chronic diastolic (congestive) heart failure; F17.210 Nicotine dependence, cigarettes, uncomplicated; R06.02 Shortness of breath | CPT/HCPCS: 99214 ==

== ENCOUNTER → 2023-12-27 08:44 | Outpatient (BNVA) | payer MEDICARE, SELFPAY | PROVIDERS: PCP Nurse Practitioner; Visit Provider Nurse Practitioner | DX: E11.9 Type 2 diabetes mellitus without complications (principal) | CPT/HCPCS: 80053; 80061; 83036; 85025 ==

== ENCOUNTER → 2023-12-31 09:52 | Outpatient (BNVA) | payer MEDICARE, SELFPAY | PROVIDERS: PCP Nurse Practitioner; Visit Provider Nurse Practitioner | DX: Z79.4 Long term (current) use of insulin (principal); R06.02 Shortness of breath; E11.65 Type 2 diabetes mellitus with hyperglycemia | CPT/HCPCS: 80048; 81000; 83880 ==

== ENCOUNTER 2024-01-01 06:30 | Outpatient (RCR) | payer MEDICARE, SELFPAY | END 2024-01-31 23:59 | disposition home or self-care (01) | LOC: APT 06:30 | PROVIDERS: Visit Provider Nurse Practitioner | DX: M47.817 Spondylosis without myelopathy or radiculopathy, lumbosacral region (principal) | CPT/HCPCS: 97110; 97163; 97530 ==

== ENCOUNTER 2024-02-01 06:00 | Outpatient (RCR) | payer MEDICARE, SELFPAY | END 2024-03-01 23:59 | disposition home or self-care (01) | LOC: APT 06:00 | PROVIDERS: Visit Provider Nurse Practitioner | DX: M47.817 Spondylosis without myelopathy or radiculopathy, lumbosacral region (principal) | CPT/HCPCS: 97110; 97140; 97530 ==

== ENCOUNTER 2024-03-17 11:01 | Inpatient (IN) | payer MEDICARE, SELFPAY ==
[2024-03-17] VITALS (20 sets, daily range): BP systolic 130–219; BP diastolic 63–127; PULSE 60–81; RESP 15–27; TEMP 36.7–36.9; O2SAT 88–98; BMI 59.4
--- NOTE | 2024-03-17 11:05 | ECG_ITS ---
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 Measurements Intervals Raphine Rate: 76 P: 0 IA: 0 QRS: 106 QRSD: 117 T: -7 QT: 391 QTc: 442 Interpretive Statements ATRIAL FIBRILLATION RIGHT AXIS DEVIATION [QRS AXIS > 100] LOW QRS VOLTAGE IN PRECORDIAL LEADS [QRS DEFLECTION < 1.0 mV IN CHEST LEADS] INCOMPLETE RIGHT BUNDLE BRANCH BLOCK [90+ ms QRS DURATION, TERMINAL R IN V1/V2, 40+ ms S IN I/aVL/V4/V5/V6] MODERATE T-WAVE ABNORMALITY, CONSIDER INFERIOR ISCHEMIA [-0.1+ mV T-WAVE IN II/aVF] Compared to ECG 06/12/2023 11:31:23 Right-axis deviation now present Low QRS voltage now present. Incomplete right bundle-branch block now present T-wave abnormality still present. Possible ischemia still present Electronically Signed On 03-17-2024 19:28:51 GROUP HOME MANAGER by Fiona Mitchell M.D. [email or web address]
--- NOTE | 2024-03-17 11:05 | XRR_ITS ---
PROCEDURE INFORMATION: Exam: XR Chest Exam date and time: 03/17/2024 11:16 AM Age: 63 years old Clinical indication: Shortness of breath; Additional info: SOB TECHNIQUE: Imaging protocol: Radiologic exam of the chest. Views: 1 view. COMPARISON: CT lung screening [id number] 05/28/2023 12:38 PM FINDINGS: Lungs: Moderate bronchovascular prominence and fluffy bibasilar airspace opacities. Pleural spaces: Left greater than right sided pleural effusion. No discernible pneumothorax. Heart/Mediastinum: The cardiomediastinal silhouette is enlarged. Bones/joints: No acute osseous abnormality. XR/XR chest 1V portable [id number] IMPRESSION: 1. Cardiomegaly with findings suggesting moderate pulmonary vascular congestion. 2. Gnla-xocipyi-xsqg-right pleural effusions.
--- NOTE | 2024-03-17 11:28 | PC.PHAR ---
patient takes whatever the gives him, she was in the room and went over the entire med list with me
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
[2024-03-17 11:50] LABS: ABG PCO2 49.5 mmHg (35-45); ABG PH Result 7.31 (7.35-7.45); Alveolar-Arterial Oxygen Gradi 4.9 mmHg (5-10); Arterial Blood Gas Hematocrit 38.1 % (42-52); Base Excess ABG -2.1 mmol/L (-2.0-2.0); Blood Gas Allen Test Pos; Blood Gas Operator Identificat AMH; Blood Gas Sample Site Radial, right; Blood Gas Sample Type Arterial; Carboxyhemoglobin 1.9 %THgb (0.4-20.1); HCO3 ABG 24.6 mmol/L (22-26); Ionized Calcium Level - ABG 1.3 mmol/L (1.1-1.4); Methemoglobin 0.4 % (0.4-1.5); Oxygen Device NC; PO2 ABG 51.7 mmHg (80.0-100.0); Potassium Level - ABG 4.3 mmol/L (3.5-5.0); Total Hemoglobin 12.4 g/dL (14-18)
[2024-03-17 12:00] LABS: Basophils # 0.1 10^3/uL (0.0-0.1); Basophils % 0.6 %; Eosinophils # 0.3 10^3/uL (0.0-0.8); Eosinophils % 2.5 %; Hematocrit 38.7 % (37-53); Lymphocytes # 1.8 10^3/uL (0.8-4.8); Lymphocytes % 13.9 %; Mean Corpuscular HGB Conc 31.5 g/dL (30-55); Mean Corpuscular Volume 95.1 fl (82-101); Mean Platelet Volume 9.8 fL (7.4-10.4); Monocytes # 0.8 10^3/uL (0.2-0.9); Monocytes % 6.4 %; Neutrophils # 9.61 10^3/uL (1.8-7.7); Nucleated Red Blood Cells % 0 %; Platelet Count 214 10^3/cmm (157-399); Red Blood Count 4.07 10^6/uL (3.85-5.65); Red Cell Distribution Width 14.9 % (12.1-15.1); White Blood Count 12.64 10^3/uL (3.29-11.43)
[2024-03-17] MEDS: FUROsemide 10 mg/mL SDV 10mL 60 MG IVP (12:01)
[2024-03-17 12:27] LABS: Alanine Aminotransferase 7 U/L (0-41); Albumin Level 3.6 g/dL (3.5-5.2); Alkaline Phosphatase 89 U/L (40-130); Anion Gap 12.6 (5-19); Aspartate Amino Transferase 11 U/L (0-40); Blood Urea Nitrogen 11 mg/dL (8-23); Carbon Dioxide 24 mmol/L (22-29); Chloride 109 mmol/L (98-107); Globulin 3.4 g/dL (1.3-4.6); Glomerular Filtration Rate 51.2 mL/min (90-130); Glucose 116 mg/dL (65-115); NT Pro B Type Natriuretic Pept 1002 pg/mL (0-125); Osmolality Calculated 292 mOsm/kg (285-295); Potassium 4.6 mmol/L (3.5-5.1); Sodium 141 mmol/L (136-145); Total Bilirubin 0.4 mg/dL (0.15-1.2)
[2024-03-17 13:07] LABS: Covid PCR NEGATIVE (Negative); Influenza A NEGATIVE (Negative); Influenza B NEGATIVE (Negative); Respiratory Syncytial Virus Ce NEGATIVE (Negative)
--- NOTE | 2024-03-17 17:09 | PM.HP ---
Providers/Chief Complaint Admitting Physician: Jenniffer Acevedo MD Primary Care Provider: Jeremaih Griffin, [facility] [employer] [facility] Chief Complaint: SOB History of Present Illness Julius Dunlap is a 63 year old male with PMH obesity hypoventilation syndrome, chronic hypoxic and hypercapnic respiratory failure, heart failure with preserved ejection fraction, small airways disease secondary to smoking and super morbid obesity with a BMI of 57.He presnted today to the hospital for increasing anasarca. Patient initially visited with his primary care physician earlier today where he was noted to be saturating in the 84% on 6 L/min supplemental O2. He had additionally gained about 27 pounds of weight in the last 5 days. Review of Systems General: Reports: 10 or more systems reviewed and unremarkable except in HPI and below Const: Denies: fever(s), chills or body aches Eyes: Denies: change in vision, blurry vision or photophobia ENMT: Reports: hoarseness; Denies: throat pain, enlarged tonsils, odynophagia or nasal congestion Card: Denies: chest pain, palpitations, irregular heart rhythm, edema, swelling of feet/ankles, lightheadedness, pre-syncope, dyspnea on exertion or orthopnea Resp: Denies: dyspnea, productive cough, non-productive cough, wheezing, stridor, pain on inspiration, change in phlegm color, hemoptysis or chest congestion GI: Denies: abdominal pain, nausea, vomiting, hematemesis, coffee ground emesis, dysphagia, heartburn, diarrhea, constipation, GI cramping, change in stool character, hematochezia or melena : Denies: flank pain, dysuria, urinary frequency, urinary urgency, urinary hesitancy or hematuria Musc: Denies: neck pain, back pain, extremity pain, joint swelling, joint warmth or deformity Neuro: Denies: headache(s), numbness in extremities, weakness in extremities, sensory changes, difficulty walking, frequent falls, dizziness, vertigo, behavioral changes, Slurred speech present or seizure-like activity Psych: Denies: anxiety, depression, suicidal ideation or homicidal ideation Endo: Denies: polyuria, polydipsia, tired all the time, cold intolerance or hot flashes Rafal/Lymph: Denies: easy bruising or easy bleeding Medications/Allergies Home Medications Medication Instructions Recorded Confirmed Last Taken Type Oxygen Pendant #1 ea 10/20/22 03/17/24 Unknown Rx ascorbic acid (vitamin C) 500 mg 500 mg PO QAM 12/28/22 03/17/24 03/16/24 History tablet (Vitamin C) cetirizine 10 mg tablet (Zyrtec) 10 mg PO QAM 12/28/22 03/17/24 03/16/24 History pen needle, diabetic 31 gauge x #100 ea 08/27/23 03/17/24 Unknown Rx 08/15 (TechLITE Pen Needle) ipratropium 0.5 mg-albuterol 3 mg 3 ml inhalation Q4H PRN wheezing 10/15/23 03/17/24 03/16/24 Rx (2.5 mg base)/3 mL nebulization #180 mL soln acetaminophen 650 mg 650 mg PO Q12H 12/11/23 03/17/24 03/16/24 History tablet,extended release (Tylenol Arthritis Pain) sacubitril 97 mg-valsartan 103 mg 1 tab PO BID #60 tabs 12/11/23 03/17/24 03/16/24 Rx tablet (Entresto) bumetanide 2 mg tablet 2 mg PO BID #60 tabs 12/31/23 03/17/24 03/16/24 Rx buspirone 30 mg tablet 30 mg PO BID #60 tabs 12/31/23 03/17/24 03/16/24 Rx dapagliflozin propanediol 5 mg 5 mg PO QAM #30 tabs 12/31/23 03/17/24 03/16/24 Rx tablet (Farxiga) fluoxetine 20 mg capsule (Prozac) 20 mg PO BID #60 caps 12/31/23 03/17/24 03/16/24 Rx gabapentin 300 mg capsule 300 mg PO BID #60 caps 12/31/23 03/17/24 03/16/24 Rx insulin degludec 100 unit/mL (3 60 unit (0.6 mL) SUBCUT QAM #30 mL 12/31/23 03/17/24 03/16/24 Rx mL) subcutaneous pen (Tresiba FlexTouch U-100 insulin) insulin lispro 100 unit/mL See Rx Instructions SUBCUT TID #15 12/31/23 03/17/24 03/16/24 Rx subcutaneous pen (Humalog KwikPen mL (U-100) Insulin) levothyroxine 175 mcg tablet 175 mcg PO DAILY #30 tabs 12/31/23 03/17/24 03/16/24 Rx rivaroxaban 20 mg tablet (Xarelto) 20 mg PO QAM #30 tabs 12/31/23 03/17/24 03/16/24 Rx rosuvastatin 20 mg tablet 20 mg PO QAM #30 tabs 12/31/23 03/17/24 03/16/24 Rx semaglutide 0.25 mg or 0.5 mg (2 0.5 mg (0.736 mL) SUBCUT .weekly 12/31/23 03/17/24 Unknown Rx mg/3 mL) subcutaneous pen injector #3 mL (Ozempic) silver sulfadiazine 1 % topical 1 applic topical BID burn face 12/31/23 03/17/24 Unknown Rx cream (Silvadene) #50 grams trazodone 100 mg tablet 100 mg PO BEDTIME #30 tabs 12/31/23 03/17/24 03/16/24 Rx amiodarone 200 mg tablet 200 mg PO DAILY 03/17/24 03/17/24 03/16/24 History amlodipine 10 mg tablet 10 mg PO DAILY 03/17/24 03/17/24 03/16/24 History colesevelam 625 mg tablet (WelChol) 1,875 mg PO BID 03/17/24 03/17/24 03/16/24 History potassium chloride 20 mEq 20 meq PO BID 03/17/24 03/17/24 03/16/24 History tablet,extended release Allergies Allergy/AdvReac Type Severity Reaction Status Date / Time No Known Allergies Allergy Verified 03/17/24 09:02 PFSH Acute PFSH: Medical History (Updated 03/17/24 @ 17:16 by Jenniffer Acevedo MD) Acute exacerbation of chronic obstructive airways disease Chronic respiratory failure Chronic diastolic (congestive) heart failure Essential (primary) hypertension Hyperlipemia COVID-19 determined by clinical diagnostic criteria CKD (chronic kidney disease) stage 3, GFR 30-59 ml/min Anemia Sepsis Pneumonia Hyperkalemia Goals of care, counseling/discussion NSTEMI (non-ST elevated myocardial infarction) Elevated INR Obesity hypoventilation syndrome Congestive heart failure Anemia Leukocytosis Acute diastolic heart failure Acute respiratory failure with hypercapnia Chronic kidney disease Diabetes mellitus with hyperglycemia, with long-term current use of insulin Morbid obesity with BMI of 50.0-59.9, adult Allergic rhinitis due to pollen Anxiety Chronic atrial fibrillation with rapid ventricular response Obesity hypoventilation syndrome Pneumonia, unspecified organism Hypoxia, sleep related EDGAR (obstructive sleep apnea) Acquired lymphedema Hypothyroidism GERD (gastroesophageal reflux disease) Afib MRSA infection Surgical History History of bilateral cataract extraction 2019 and 2020 H/O esophagogastroduodenoscopy (02/18/21) History of colonoscopy (02/18/21) History of gangrene Left buttocks requiring surgery May 2014 Family History Father Cancer Mother Heart disease CAD (coronary artery disease) Diabetes Heart attack Stroke Brother Heart attack Clotting disorder Stroke Sister Stroke Denies family history of Dementia Chronic kidney disease (CKD) Suicide Anesthesia complication Bleeding disorder Lung disease Social History Smoking and tobacco/nicotine status: current every day tobacco/nicotine user cigarettes Packs smoked per day: 1.5 Years cigarettes smoked: 50 [ Other cigarette details: Started at age 50] Quit status (tobacco/nicotine): has quit using Year quit tobacco: 6 weeks ago Second hand smoke exposure: Yes Alcohol intake: former Year of sobriety/quit date alcohol: 1991 Substance/Drug Use: never Adopted: No Caregiver/support person: No Lives independently: Yes Household members: spouse Housing: House Marital status: service: No Current occupational status: disabled Pets and animals: Yes Do you think of yourself as: Straight/Heterosexual Current gender identity: Male Vitals/I&O/Wt Last Vital Signs Temp 98.1 F 03/17/24 11:19 Pulse 66 03/17/24 14:25 Resp 15 03/17/24 14:00 BP 159/79 03/17/24 14:00 Pulse Ox 95 03/17/24 14:25 O2 Del Method BiPAP 03/17/24 12:12 O2 Flow Rate 8 03/17/24 11:19 FiO2 50 03/17/24 14:25 03/17/24 03/17/24 03/17/24 06:59 14:59 22:59 Output Total 2400 / 2400 Balance -2400 / -2400 Weight last 48 hrs Weight 193.23 kg Physical Exam Narrative: General: No acute distress, AO x3, on Bipap HEENT: PERRLA, pupils bilaterally equal and reactive, pallors not present Chest: crackles to auscultation B/L CVS: S1-S2 regular, no murmurs, no tachycardia, no gallops, no rubs Abdomen: Soft, nontender, no organomegaly, bowel sounds present Neuro: No focal deficits, no facial deformity, AO x3, power 5/5 in all limbs Extremities: pitting edema B/L Data 03/17/24 11:50 03/17/24 11:50 Other Labs: Radiology Impressions Chest X-Ray 03/17/24 11:05 IMPRESSION: 1. Cardiomegaly with findings suggesting moderate pulmonary vascular congestion. 2. Yepj-ajhdhzx-mzny-right pleural effusions. Laboratory Results WBC 12.64 10^3/uL (3.29-11.43) H 03/17/24 11:50 RBC 4.07 10^6/uL (3.85-5.65) 03/17/24 11:50 Hgb 12.20 g/dL (11.27-16.99) 03/17/24 11:50 Hct 38.7 % (37-53) 03/17/24 11:50 MCV 95.1 fl (82-101) 03/17/24 11:50 MCH 30.0 pg (27-33) 03/17/24 11:50 MCHC 31.5 g/dL (30-55) 03/17/24 11:50 RDW 14.9 % (12.1-15.1) 03/17/24 11:50 Plt Count 214 10^3/cmm (157-399) 03/17/24 11:50 MPV 9.8 fL (7.4-10.4) 03/17/24 11:50 Neut % (Auto) 76.0 % 03/17/24 11:50 Lymph % (Auto) 13.9 % 03/17/24 11:50 [place] % (Auto) 6.4 % 03/17/24 11:50 Eos % (Auto) 2.5 % 03/17/24 11:50 Baso % (Auto) 0.6 % 03/17/24 11:50 Neut # (Auto) 9.61 10^3/uL (1.8-7.7) H 03/17/24 11:50 Lymph # (Auto) 1.8 10^3/uL (0.8-4.8) 03/17/24 11:50 [place] # (Auto) 0.8 10^3/uL (0.2-0.9) 03/17/24 11:50 Eos # (Auto) 0.3 10^3/uL (0.0-0.8) 03/17/24 11:50 Baso # (Auto) 0.1 10^3/uL (0.0-0.1) 03/17/24 11:50 Nucleated RBC % (auto) 0 % 03/17/24 11:50 Nucleated RBCs # 0.0 /100WBC 03/17/24 11:50 Specimen Type Arterial 03/17/24 11:39 Sample Site Radial, right 03/17/24 11:39 ABG pH 7.31 (7.35-7.45) L 03/17/24 11:39 ABG pCO2 49.5 mmHg (35-45) H 03/17/24 11:39 ABG pO2 51.7 mmHg (80.0-100.0) L 03/17/24 11:39 ABG HCO3 24.6 mmol/L (22-26) 03/17/24 11:39 ABG O2 Saturation 86.0 03/17/24 11:39 ABG Base Excess -2.1 mmol/L (-2.0-2.0) L 03/17/24 11:39 Avila Test Pos 03/17/24 11:39 A-a O2 Gradient 4.9 mmHg (5-10) L 03/17/24 11:39 Hematocrit 38.1 % (42-52) L 03/17/24 11:39 Hgb O2 Saturation 84.0 % (95-100) L 03/17/24 11:39 Carboxyhemoglobin 1.9 %THgb (0.4-20.1) 03/17/24 11:39 Methemoglobin 0.4 % (0.4-1.5) 03/17/24 11:39 Total Hemoglobin 12.4 g/dL (14-18) L 03/17/24 11:39 Sodium 143.0 mmol/L (131-143) 03/17/24 11:39 Potassium 4.3 mmol/L (3.5-5.0) 03/17/24 11:39 Glucose 109.0 mg/dL (70-115) 03/17/24 11:39 Ionized Calcium 1.3 mmol/L (1.1-1.4) 03/17/24 11:39 O2 Delivery Device Nc 03/17/24 11:39 O2 Liters/Min 8.0 % 03/17/24 11:39 Heatset Winder Operator ID [id number] 03/17/24 11:39 Sodium 141 mmol/L (136-145) 03/17/24 11:50 Potassium 4.6 mmol/L (3.5-5.1) 03/17/24 11:50 Chloride 109 mmol/L (98-107) H 03/17/24 11:50 Carbon Dioxide 24 mmol/L (22-29) 03/17/24 11:50 Anion Gap 12.6 (5-19) 03/17/24 11:50 BUN 11 mg/dL (8-23) 03/17/24 11:50 Creatinine 1.4 mg/dL (0.7-1.2) H 03/17/24 11:50 GFR Calculation 51.2 mL/min (90-130) L 03/17/24 11:50 Glucose 116 mg/dL (65-115) H 03/17/24 11:50 Calculated Osmolality 292 mOsm/kg (285-295) 03/17/24 11:50 Calcium 9.0 mg/dL (8.5-10.5) 03/17/24 11:50 Total Bilirubin 0.4 mg/dL (0.15-1.2) 03/17/24 11:50 AST 11 U/L (0-40) 03/17/24 11:50 ALT 7 U/L (0-41) 03/17/24 11:50 Alkaline Phosphatase 89 U/L (40-130) 03/17/24 11:50 NT-Pro-B Natriuret Pep 1002 pg/mL (0-125) H 03/17/24 11:50 Total Protein 7.0 g/dL (6.6-8.7) 03/17/24 11:50 Albumin 3.6 g/dL (3.5-5.2) 03/17/24 11:50 Globulin 3.4 g/dL (1.3-4.6) 03/17/24 11:50 Coronavirus (PCR) Negative (Negative) 03/17/24 12:04 Influenza A (PCR) Negative (Negative) 03/17/24 12:04 Influenza Type B (PCR) Negative (Negative) 03/17/24 12:04 RSV (PCR) Negative (Negative) 03/17/24 12:04 ABG Interpretation 1: 03/17/24 11:39 ABG pH 7.31 L ABG pCO2 49.5 H ABG pO2 51.7 L ABG HCO3 24.6 ABG O2 Saturation 86.0 ABG Base Excess -2.1 L A&P Assessment and plan (1) Pulmonary edema: (2) Acute exacerbation of chronic obstructive airways disease: (3) Acute on chronic respiratory failure with hypoxia and hypercapnia: (4) Chronic diastolic (congestive) heart failure: Plan 62M with chronic hypoxic respiratory failure typically on 5-6 lpm supplemental 02 coming in with worsening shortness of breath, increased 02 requirements , weight gain of over 20 pounds in the past few days. currently on Bipap since arrival in the ER Rales on auscultation B/L with LE edema ABG with hypoxia and hypercapnea repeat after being on Bipap Likely multifactorial respiratory failure related to acute on chronic hypoxic hypercapnic respiratory failure, acute on chronic diastolic CHF exacerbation Lasix 60mg iv q12h monitor I/O , urine output continue Bipap check troponin series and EKG A-fib currently rate controlled. Continue amiodarone and Xarelto DVT ppx: Chronically on Xarelto for aFib Full code Attestations Medical Necessity Statement*: Greater than 2 midnight stay is anticipated for iv diuresis, non invasive ventilation, hypercapnea Coding Level of Care Code Acute Code for Chg Fwd High MDM includes number and complexity of problems actively addressed during encounter, amount and/or complexity of data reviewed/ordered and described risk of complication, morbidity or mortality of management as documented Diagnoses Pulmonary edema J81.1 Acute exacerbation of chronic obstructive airways disease J44.1 Acute on chronic respiratory failure with hypoxia and hypercapnia J96.21; J96.22 Chronic diastolic (congestive) heart failure I50.32
[2024-03-17 17:32] LABS: Bilirubin Urine Negative (Negative); Blood Urine Trace (Negative); Glucose Urine UA Trace (Normal); Ketones Urine Negative (Negative); Leukocyte Esterase Urine Negative (Negative); Nitrate Urine Negative (Negative); Protein Urine 1+ (Negative); Specific Gravity, Urine 1.006 (1.005-1.030); Urine Appearance Clear (CLEAR); Urine Color Yellow (Yellow); Urobilinogen Urine 0.2 mg/dL (Negative)
[2024-03-17 17:38] LABS: Bacteria Urine None Seen /hpf; Hyaline Casts Urine 1.21 /lpf; RBC Urine 0-2 /hpf (0-2); Squamous Epithelial Cell Urine 0-5 /hpf (0-5); WBC Urine 0-5 /hpf (0-5)
[2024-03-17 17:50] LABS: Glucose Point of Care 91 mg/dL (70-110)
[2024-03-17 17:57] LABS: UA Slide Review UA Slide Review Perf
[2024-03-17 17:58] LABS: Add Urine Culture? No; Sperm Urine 1+ /hpf
[2024-03-17] MEDS: BuSPIRONE 10 mg Tablet 30 MG PO (17:58)
[2024-03-17] MEDS: gabapentin 300 mg Capsule PO (17:59)
[2024-03-17] MEDS: sacubitril/valsartan 24-26 mg Tablet 4 EACH PO (17:59)
[2024-03-17] MEDS: fluoxetine 20 mg Capsule PO (17:59)
[2024-03-17 18:21] LABS: ABG PCO2 46.9 mmHg (35-45); ABG PH Result 7.37 (7.35-7.45); Alveolar-Arterial Oxygen Gradi 3.4 mmHg (5-10); Blood Gas Allen Test Pos; Blood Gas Operator Identificat AH; Blood Gas Sample Site Radial, left; Blood Gas Sample Type Arterial; Carboxyhemoglobin 1.4 %THgb (0.4-20.1); HCO3 ABG 26.9 mmol/L (22-26); HGB O2 Sat 91.9 % (95-100); Ionized Calcium Level - ABG 1.2 mmol/L (1.1-1.4); Oxygen Device NC; Oxygen Saturation ABG 94.1; PO2 ABG 66.8 mmHg (80.0-100.0); Potassium Level - ABG 3.9 mmol/L (3.5-5.0); Total Hemoglobin 12.4 g/dL (14-18)
[2024-03-17] MEDS: trazodone 100 mg Tablet PO (20:16)
[2024-03-17 20:48] LABS: Glucose Point of Care 182 mg/dL (70-110)
[2024-03-17] MEDS: insulin lispro 100 unit/1 mL SUBCUT (22:17)
[2024-03-18] VITALS (11 sets, daily range): BP systolic 117–160; BP diastolic 51–77; PULSE 17–73; RESP 17–27; TEMP 36.6–37.2; O2SAT 90–99
[2024-03-18] MEDS: FUROsemide 10 mg/mL SDV 10mL 60 MG IVP ×2 (00:02→12:37)
[2024-03-18 04:41] LABS: Basophils # 0.1 10^3/uL (0.0-0.1); Basophils % 0.8 %; Eosinophils # 0.5 10^3/uL (0.0-0.8); Eosinophils % 4.5 %; Hematocrit 36.2 % (37-53); Lymphocytes % 19.8 %; Mean Corpuscular HGB Conc 31.5 g/dL (30-55); Mean Corpuscular Hemoglobin 30.1 pg (27-33); Mean Corpuscular Volume 95.5 fl (82-101); Mean Platelet Volume 9.7 fL (7.4-10.4); Monocytes # 0.9 10^3/uL (0.2-0.9); Monocytes % 8.6 %; Neutrophils # 6.82 10^3/uL (1.8-7.7); Nucleated Red Blood Cells % 0 %; Platelet Count 197 10^3/cmm (157-399); Red Blood Count 3.79 10^6/uL (3.85-5.65); Red Cell Distribution Width 14.6 % (12.1-15.1); White Blood Count 10.32 10^3/uL (3.29-11.43)
[2024-03-18 05:04] LABS: Alanine Aminotransferase 6 U/L (0-41); Albumin Level 3.3 g/dL (3.5-5.2); Alkaline Phosphatase 79 U/L (40-130); Aspartate Amino Transferase 8 U/L (0-40); Blood Urea Nitrogen 12 mg/dL (8-23); Calcium 8.7 mg/dL (8.5-10.5); Carbon Dioxide 29 mmol/L (22-29); Chloride 107 mmol/L (98-107); Globulin 2.8 g/dL (1.3-4.6); Glomerular Filtration Rate 51.2 mL/min (90-130); Glucose 83 mg/dL (65-115); Osmolality Calculated 293 mOsm/kg (285-295); Sodium 142 mmol/L (136-145); Total Bilirubin 0.5 mg/dL (0.15-1.2); Total Protein 6.1 g/dL (6.6-8.7)
[2024-03-18] MEDS: atorvastatin 40 mg Tablet PO (05:53)
[2024-03-18] MEDS: rivaroxaban 10 mg Tablet 20 MG PO (05:53)
[2024-03-18 06:41] LABS: Glucose Point of Care 99 mg/dL (70-110)
[2024-03-18] MEDS: sacubitril/valsartan 24-26 mg Tablet 4 EACH PO ×2 (08:10→18:05)
[2024-03-18] MEDS: insulin glargine 100 units/1 mL 60 UNIT SUBCUT (08:10)
[2024-03-18] MEDS: fluoxetine 20 mg Capsule PO ×2 (08:11→18:05)
[2024-03-18] MEDS: BuSPIRONE 10 mg Tablet 30 MG PO ×2 (08:11→18:05)
[2024-03-18] MEDS: amiodarone 200 mg Tablet PO (08:11)
[2024-03-18] MEDS: levothyroxine 175 mcg Tablet PO (08:11)
[2024-03-18] MEDS: amlodipine 10 mg Tablet PO (08:11)
[2024-03-18] MEDS: gabapentin 300 mg Capsule PO ×2 (08:11→18:05)
[2024-03-18] MEDS: pantoprazole DR 40 mg Tablet PO (08:11)
--- NOTE | 2024-03-18 10:03 | PC.CHAP ---
Pastoral Care Encounter/Spiritual Assessment Type of Contact [] Declined casting wheel operator visit [] Patient/Family/Request visit [] Outpatient visit [] Follow-up visit [] Physician referral [] Code/Alert [x] Routine visit [] Staff referral [] Actively dying [] Patient sleeping [] Family support [] [] Out of room [] Palliative care [] [] Receiving care in room [] Pre-surgical visit [] Trauma [] Long length of stay [] ICU visit [] Other: Relational/Emotional Strength [x] Patient feels connected with others/family/visitors/staff [] Distress [] Loneliness/isolation [] Abandonment Spirituality of Patient [x] Person of Monalisa [] Attends Mosque of their [place]isa [x] Believes in Prayer [] Reads Bible or Buddhism materials [] There are Spiritual issues to be addressed Rope Silica Machine Operator Interventions [x] Prayer [x] Active listening [] Non-anxious presence [x] Spiritual/emotional support [] Crisis/trauma care [] Spiritual counseling [] Bereavement support [] Provided bereavement packet [] Provided Bible/devotional materials [] Provided toy/stuffed animal, coloring book to patient or family member [] Provided Communion [] Anointing/[place] [] Salvation [x] Completed spiritual assessment [] Other: Impact on Illness or Injury [] Angry [] Fearful [] Anxious [] Often cries [] Exhaustion [] Unable to work [] Unable to attend mormon [] Unable to walk/stand [] Unable to read [] Unable to drive [] Unable to eat/drink [] Unable to sleep [] Unable to be with family [] Patient intubated [] Other: Summary Time spent with patient 5 min
[2024-03-18 11:29] LABS: Glucose Point of Care 125 mg/dL (70-110)
--- NOTE | 2024-03-18 13:30 | P.PN_ITS ---
Subjective 2 Subjective: Seen this morning. No acute events overnight. Patient is 6 L negative since admission. Says breathing has eased up. He is on 6 L nasal cannula at rest. Vitals/I&O/Wt Last Vital Signs Temp 97.9 F 03/18/24 11:19 Pulse 73 03/18/24 11:19 Resp 17 03/18/24 11:19 BP 149/76 03/18/24 11:19 Pulse Ox 91 03/18/24 11:19 O2 Del Method Nasal Cannula 03/18/24 11:19 O2 Flow Rate 5 03/17/24 17:05 FiO2 40 03/18/24 04:00 03/17/24 03/18/24 03/18/24 22:59 06:59 14:59 Intake Total 240 / 240 480 / 480 Output Total 4150 / 4150 2600 / 6750 1000 / 1000 Balance -3910 / -3910 -2600 / -6510 -520 / -520 Weight last 48 hrs Weight 196.768 kg Weight 200.034 kg Weight 193.23 kg Physical Exam 2 Narrative: General: No acute distress, AO x3, on 6 L nasal cannula at this time. HEENT: PERRLA, pupils bilaterally equal and reactive, pallors not present Chest: crackles to auscultation B/L CVS: S1-S2 regular, no murmurs, Abdomen: Soft, nontender, no organomegaly, bowel sounds present Neuro: No focal deficits, no facial deformity, AO x3, Extremities: pitting edema B/L Data 03/18/24 04:18 03/18/24 04:18 A&P Assessment and plan (1) Pulmonary edema: (2) Acute exacerbation of chronic obstructive airways disease: (3) Acute on chronic respiratory failure with hypoxia and hypercapnia: (4) Chronic diastolic (congestive) heart failure: Plan 62M with chronic hypoxic respiratory failure typically on 5-6 lpm supplemental 02 coming in with worsening shortness of breath, increased 02 requirements , weight gain of over 20 pounds in the past few days. currently on Bipap since arrival in the ER Rales on auscultation B/L with LE edema ABG with hypoxia and hypercapnea repeat after being on Bipap Likely multifactorial respiratory failure related to acute on chronic hypoxic hypercapnic respiratory failure, acute on chronic diastolic CHF exacerbation Lasix 60mg iv q12h monitor I/O , urine output continue Bipap check troponin series and EKG A-fib currently rate controlled. Continue amiodarone and Xarelto DVT ppx: Chronically on Xarelto for aFib Full code 03/18/2024 -Continue Lasix 60 IV twice daily. Patient has risk of electrolyte imbalance secondary to Lasix. Will recheck BMP in evening. ? Continue BiPAP as needed. ? EKG did show A-fib rate controlled. Continue amiodarone Xarelto. ? Continue to diurese patient. Once fluid status optimized we will consider discharging home. ? Echo is pending. Full code DVT prophylaxis: On Xarelto. Attestations 2 Medical Necessity Statement*: Continue IV diuresis at this time. Diagnoses Pulmonary edema J81.1 Acute exacerbation of chronic obstructive airways disease J44.1 Acute on chronic respiratory failure with hypoxia and hypercapnia J96.21; J96.22 Chronic diastolic (congestive) heart failure I50.32
[2024-03-18 17:15] LABS: Glucose Point of Care 122 mg/dL (70-110)
[2024-03-18 19:45] LABS: Blood Urea Nitrogen 16 mg/dL (8-23); Calcium 8.7 mg/dL (8.5-10.5); Carbon Dioxide 28 mmol/L (22-29); Chloride 104 mmol/L (98-107); Creatinine Clr Calc Pharmacy 94.6361; Glomerular Filtration Rate 51.2 mL/min (90-130); Glucose 194 mg/dL (65-115); Osmolality Calculated 310 mOsm/kg (285-295); Sodium 147 mmol/L (136-145)
[2024-03-18 20:06] LABS: Anion Gap 19.4 (5-19); Potassium 4.4 mmol/L (3.5-5.1)
[2024-03-18 21:14] LABS: Glucose Point of Care 151 mg/dL (70-110)
[2024-03-18] MEDS: trazodone 100 mg Tablet PO (23:11)
[2024-03-18] MEDS: insulin lispro 100 unit/1 mL SUBCUT (23:11)
[2024-03-19] VITALS (10 sets, daily range): BP systolic 124–165; BP diastolic 49–91; PULSE 58–73; RESP 17–23; TEMP 36.8–37.6; O2SAT 93–98
[2024-03-19] MEDS: FUROsemide 10 mg/mL SDV 10mL 60 MG IVP ×2 (01:23→12:33)
[2024-03-19 04:14] LABS: Basophils # 0.1 10^3/uL (0.0-0.1); Basophils % 0.5 %; Eosinophils # 0.4 10^3/uL (0.0-0.8); Eosinophils % 3.7 %; Hematocrit 35.4 % (37-53); Lymphocytes # 2.3 10^3/uL (0.8-4.8); Lymphocytes % 20.8 %; Mean Corpuscular HGB Conc 32.2 g/dL (30-55); Mean Corpuscular Hemoglobin 30.5 pg (27-33); Mean Corpuscular Volume 94.7 fl (82-101); Mean Platelet Volume 9.9 fL (7.4-10.4); Monocytes # 1.1 10^3/uL (0.2-0.9); Monocytes % 9.6 %; Neutrophils # 7.15 10^3/uL (1.8-7.7); Neutrophils % 65.1 %; Nucleated Red Blood Cells % 0 %; Platelet Count 220 10^3/cmm (157-399); Red Blood Count 3.74 10^6/uL (3.85-5.65); Red Cell Distribution Width 14.5 % (12.1-15.1); White Blood Count 10.98 10^3/uL (3.29-11.43)
[2024-03-19 04:36] LABS: Anion Gap 11.7 (5-19); Blood Urea Nitrogen 17 mg/dL (8-23); Calcium 8.5 mg/dL (8.5-10.5); Carbon Dioxide 30 mmol/L (22-29); Chloride 104 mmol/L (98-107); Glomerular Filtration Rate 47.3 mL/min (90-130); Glucose 71 mg/dL (65-115); Magnesium 1.8 mg/dL (1.7-2.3); Osmolality Calculated 294 mOsm/kg (285-295); Potassium 3.7 mmol/L (3.5-5.1); Sodium 142 mmol/L (136-145)
[2024-03-19 06:38] LABS: Glucose Point of Care 93 mg/dL (70-110)
[2024-03-19] MEDS: atorvastatin 40 mg Tablet PO (07:02)
[2024-03-19] MEDS: rivaroxaban 10 mg Tablet 20 MG PO (07:02)
[2024-03-19] MEDS: insulin glargine 100 units/1 mL 60 UNIT SUBCUT (07:02)
[2024-03-19] MEDS: amlodipine 10 mg Tablet PO (08:36)
[2024-03-19] MEDS: pantoprazole DR 40 mg Tablet PO (08:36)
[2024-03-19] MEDS: amiodarone 200 mg Tablet PO (08:36)
[2024-03-19] MEDS: gabapentin 300 mg Capsule PO (08:36)
[2024-03-19] MEDS: BuSPIRONE 10 mg Tablet 30 MG PO (08:36)
[2024-03-19] MEDS: levothyroxine 175 mcg Tablet PO (08:36)
[2024-03-19] MEDS: fluoxetine 20 mg Capsule PO (08:36)
[2024-03-19] MEDS: sacubitril/valsartan 24-26 mg Tablet 4 EACH PO (08:36)
--- NOTE | 2024-03-19 11:40 | PC.NURSE ---
provider okay'd to remove vinson catheter.
--- NOTE | 2024-03-19 11:43 | PC.NURSE ---
Jiménez catheter removed, catheter intact, patient tolerated well.
[2024-03-19 11:53] LABS: Glucose Point of Care 128 mg/dL (70-110)
--- NOTE | 2024-03-19 12:46 | PM.DCS ---
Discharge Providers Date of Admission: 03/17/24 14:20 Date of Discharge: March 19, 2024 Attending Provider at Admission: Jenniffer Acevedo MD Attending Provider at Discharge: Pia Marcano MD Primary Care Provider: YONATHAN Samuel Diagnoses at Discharge Discharge Diagnosis (1) Pulmonary edema: Status: Resolved (2) Acute exacerbation of chronic obstructive airways disease: Status: Resolved (3) Acute on chronic respiratory failure with hypoxia and hypercapnia: Status: Resolved (4) Chronic diastolic (congestive) heart failure: Status: Chronic Reason for Visit Reason for Visit: SOB Hospital Course Hospital Course Patient presented to the hospital with CHF exacerbation. Also component of COPD exacerbation. He was diuresed with 60 Lasix IV twice daily. Placed on BiPAP as needed. Patient was 6 L negative since admission and felt better and back to his baseline. Shared decision making made with the patient and he was discharged home in stable condition with home health. He was given outpatient follow-up with cardiology and PCP Physical Exam Narrative: General: No acute distress, AO x3, on 6 L nasal cannula at this time. HEENT: PERRLA, pupils bilaterally equal and reactive, pallors not present Chest: clear to auscultation B/L CVS: S1-S2 regular, no murmurs, Abdomen: Soft, nontender, no organomegaly, bowel sounds present Neuro: No focal deficits, no facial deformity, AO x3, Extremities: pitting edema B/L has improved since admission, generalized anasarca chronic Discharge Data Studies Completed and Pending Completed Studies During Hospitalization Category Date Time Status XR chest 1V portable [id number] Stat Exams 03/17/24 11:05 Completed Radiology Impressions Chest X-Ray 03/17/24 11:05 IMPRESSION: 1. Cardiomegaly with findings suggesting moderate pulmonary vascular congestion. 2. Txjw-jntgnlp-gwpt-right pleural effusions. Laboratory Results WBC 10.98 10^3/uL (3.29-11.43) 03/19/24 03:44 RBC 3.74 10^6/uL (3.85-5.65) L 03/19/24 03:44 Hgb 11.40 g/dL (11.27-16.99) 03/19/24 03:44 Hct 35.4 % (37-53) L 03/19/24 03:44 MCV 94.7 fl (82-101) 03/19/24 03:44 MCH 30.5 pg (27-33) 03/19/24 03:44 MCHC 32.2 g/dL (30-55) 03/19/24 03:44 RDW 14.5 % (12.1-15.1) 03/19/24 03:44 Plt Count 220 10^3/cmm (157-399) 03/19/24 03:44 MPV 9.9 fL (7.4-10.4) 03/19/24 03:44 Neut % (Auto) 65.1 % 03/19/24 03:44 Lymph % (Auto) 20.8 % 03/19/24 03:44 [place] % (Auto) 9.6 % 03/19/24 03:44 Eos % (Auto) 3.7 % 03/19/24 03:44 Baso % (Auto) 0.5 % 03/19/24 03:44 Neut # (Auto) 7.15 10^3/uL (1.8-7.7) 03/19/24 03:44 Lymph # (Auto) 2.3 10^3/uL (0.8-4.8) 03/19/24 03:44 [place] # (Auto) 1.1 10^3/uL (0.2-0.9) H 03/19/24 03:44 Eos # (Auto) 0.4 10^3/uL (0.0-0.8) 03/19/24 03:44 Baso # (Auto) 0.1 10^3/uL (0.0-0.1) 03/19/24 03:44 Nucleated RBC % (auto) 0 % 03/19/24 03:44 Nucleated RBCs # 0.0 /100WBC 03/19/24 03:44 Specimen Type Arterial 03/17/24 18:09 Sample Site Radial, left 03/17/24 18:09 ABG pH 7.37 (7.35-7.45) 03/17/24 18:09 ABG pCO2 46.9 mmHg (35-45) H 03/17/24 18:09 ABG pO2 66.8 mmHg (80.0-100.0) L 03/17/24 18:09 ABG HCO3 26.9 mmol/L (22-26) H 03/17/24 18:09 ABG O2 Saturation 94.1 03/17/24 18:09 ABG Base Excess 1.0 mmol/L (-2.0-2.0) 03/17/24 18:09 Avila Test Pos 03/17/24 18:09 A-a O2 Gradient 3.4 mmHg (5-10) L 03/17/24 18:09 Hematocrit 38.0 % (42-52) L 03/17/24 18:09 Hgb O2 Saturation 91.9 % (95-100) L 03/17/24 18:09 Carboxyhemoglobin 1.4 %THgb (0.4-20.1) 03/17/24 18:09 Methemoglobin 1.0 % (0.4-1.5) 03/17/24 18:09 Total Hemoglobin 12.4 g/dL (14-18) L 03/17/24 18:09 Sodium 144.0 mmol/L (131-143) H 03/17/24 18:09 Potassium 3.9 mmol/L (3.5-5.0) 03/17/24 18:09 Glucose 102.0 mg/dL (70-115) 03/17/24 18:09 Ionized Calcium 1.2 mmol/L (1.1-1.4) 03/17/24 18:09 O2 Delivery Device Nc 03/17/24 18:09 O2 Liters/Min 8.0 % 03/17/24 18:09 Calculation Reviewer ID Ah 03/17/24 18:09 Sodium 142 mmol/L (136-145) 03/19/24 03:44 Potassium 3.7 mmol/L (3.5-5.1) 03/19/24 03:44 Chloride 104 mmol/L (98-107) 03/19/24 03:44 Carbon Dioxide 30 mmol/L (22-29) H 03/19/24 03:44 Anion Gap 11.7 (5-19) 03/19/24 03:44 BUN 17 mg/dL (8-23) 03/19/24 03:44 Creatinine 1.5 mg/dL (0.7-1.2) H 03/19/24 03:44 GFR Calculation 47.3 mL/min (90-130) L 03/19/24 03:44 Glucose 71 mg/dL (65-115) 03/19/24 03:44 POC Glucose 128 mg/dL (70-110) H 03/19/24 11:47 Calculated Osmolality 294 mOsm/kg (285-295) 03/19/24 03:44 Calcium 8.5 mg/dL (8.5-10.5) 03/19/24 03:44 Magnesium 1.8 mg/dL (1.7-2.3) 03/19/24 03:44 Total Bilirubin 0.5 mg/dL (0.15-1.2) 03/18/24 04:18 AST 8 U/L (0-40) 03/18/24 04:18 ALT 6 U/L (0-41) 03/18/24 04:18 Alkaline Phosphatase 79 U/L (40-130) 03/18/24 04:18 NT-Pro-B Natriuret Pep 1002 pg/mL (0-125) H 03/17/24 11:50 Total Protein 6.1 g/dL (6.6-8.7) L 03/18/24 04:18 Albumin 3.3 g/dL (3.5-5.2) L 03/18/24 04:18 Globulin 2.8 g/dL (1.3-4.6) 03/18/24 04:18 Urine Color Yellow (Yellow) 03/17/24 15:00 Urine Appearance Clear (CLEAR) 03/17/24 15:00 Urine pH 5.0 (5-7) 03/17/24 15:00 Ur Specific [place] 1.006 (1.005-1.030) 03/17/24 15:00 Urine Protein 1+ (Negative) A 03/17/24 15:00 Urine Glucose (UA) Trace (Normal) H 03/17/24 15:00 Urine Ketones Negative (Negative) 03/17/24 15:00 Urine Blood Trace (Negative) A 03/17/24 15:00 Urine Nitrate Negative (Negative) 03/17/24 15:00 Urine Bilirubin Negative (Negative) 03/17/24 15:00 Urine Urobilinogen 0.2 mg/dL (Negative) 03/17/24 15:00 Ur Leukocyte Esterase Negative (Negative) 03/17/24 15:00 Urine RBC 0-2 /hpf (0-2) 03/17/24 15:00 Urine WBC 0-5 /hpf (0-5) 03/17/24 15:00 Ur Squamous Epith Cells 0-5 /hpf (0-5) 03/17/24 15:00 Amorphous Sediment Not Reportable 03/17/24 15:00 Urine Bacteria None seen /hpf (NONE) 03/17/24 15:00 Hyaline Casts 1.21 /lpf 03/17/24 15:00 Urine Sperm 1+ /hpf 03/17/24 15:00 Coronavirus (PCR) Negative (Negative) 03/17/24 12:04 Influenza A (PCR) Negative (Negative) 03/17/24 12:04 Influenza Type B (PCR) Negative (Negative) 03/17/24 12:04 RSV (PCR) Negative (Negative) 03/17/24 12:04 Vitals Last Vital Signs Temp 98.3 F 03/19/24 11:48 Pulse 65 03/19/24 11:48 Resp 20 H 03/19/24 11:48 BP 146/66 03/19/24 11:48 Pulse Ox 95 03/19/24 11:48 O2 Del Method Nasal Cannula 03/19/24 11:48 O2 Flow Rate 6 03/19/24 11:48 FiO2 40 03/19/24 11:19 Discharge Plan Discharge Patient Disposition: Home Condition: Stable Prescriptions: Continued acetaminophen [Tylenol Arthritis Pain] 650 mg tablet extended release 650 mg PO Q12H Entresto 97-103 mg tablet 1 tab PO BID Qty: 60 5RF silver sulfadiazine [Silvadene] 1 % cream 1 applic TOPICAL BID Qty: 50 0RF Rx Instructions: apply a 1.5 mm thickness (DME) Oxygen Pendant See Rx Instructions .Route .MEDSUPPLY Qty: 1 0RF Rx Instructions: As directed cetirizine [Zyrtec] 10 mg Tablet 10 mg PO QAM ascorbic acid (vitamin C) [Vitamin C] 500 mg Tablet 500 mg PO QAM amiodarone 200 mg tablet 200 mg PO DAILY colesevelam [WelChol] 625 mg tablet 1,875 mg PO BID Rx Instructions: TAKE THREE TABLETS BY MOUTH TWICE DAILY amlodipine 10 mg tablet 10 mg PO DAILY No Action (DME) E0303 Bariatric Hospital Bed See Rx Instructions .Route .MEDSUPPLY Qty: 1 0RF Rx Instructions: weight 417 bumetanide 2 mg tablet 2 mg PO BID Qty: 60 2RF buspirone 30 mg tablet 30 mg PO BID Qty: 60 2RF Farxiga 5 mg tablet 5 mg PO QAM Qty: 30 2RF fluoxetine [Prozac] 20 mg capsule 20 mg PO BID Qty: 60 2RF gabapentin 300 mg capsule 300 mg PO BID Qty: 60 2RF Tresiba FlexTouch U-100 100 unit/mL (3 mL) insulin pen 65 unit SUBCUT QAM Qty: 30 2RF insulin lispro [Humalog KwikPen Insulin] 100 unit/mL insulin pen See Rx Instructions SUBCUT TID Qty: 15 2RF Rx Instructions: 3-27 SUBCUT three times daily; 100-110= 3U 111-120= 6U 121-150= 9U 151-199= 12U 200-249=15U 250-299=21U 300-349=24U 350-399=27U ipratropium-albuterol 0.5 mg-3 mg(2.5 mg base)/3 mL solution for nebulization 3 ml inhalation Q4H PRN (Reason: wheezing) Qty: 180 6RF levothyroxine 175 mcg tablet 175 mcg PO DAILY Qty: 30 2RF Xarelto 20 mg tablet 20 mg PO QAM Qty: 30 2RF rosuvastatin 20 mg tablet 20 mg PO QAM Qty: 30 2RF Ozempic 0.25 mg or 0.5 mg (2 mg/3 mL) pen injector 0.5 mg SUBCUT .weekly Qty: 3 2RF trazodone 100 mg tablet 100 mg PO BEDTIME Qty: 30 2RF potassium chloride 20 mEq tablet extended release 20 meq PO BID Qty: 60 2RF Rx Instructions: TAKE ONE TABLET BY MOUTH TWICE DAILY (DME) pen needle, diabetic [TechLITE Pen Needle] 31 gauge x 5/16 needle See Rx Instructions .ROUTE .MEDSUPPLY Qty: 100 5RF Rx Instructions: Three times a day Discharge Orders: Discharge Order (Routine); Ordered 03/19/24 Ordered By: Pia Marcano Referrals: Morenita Abrams NP [Nurse Practitioner] - 04/07/24 8:30 am Fiona Mitchell MD [Physician] - 04/15/24 10:30 am Jeremiah Griffin, TELEVISION PRODUCTION TECHNICIAN-C [Primary Care Provider] - 03/24/24 1:00 pm Discharge Diet: Cardiac and Diabetic Discharge Activity: Resume usual activity Patient Instructions: COPD, Pulmonary Edema (DC), Chronic Respiratory Failure (DC), Opioid Safety Discharge Attestations Time Spent in Discharge Care*: greater than 30 min Status at Discharge: Cognitive status at discharge: cognitively intact, Behavioral status at discharge: cooperative, Quality Metrics Clinical Quality Measures [ No reported AMI, CVA or VTE this stay] Coding Level of Care Code Acute Code for [facility] Fwd Diagnoses Pulmonary edema J81.1 Acute exacerbation of chronic obstructive airways disease J44.1 Acute on chronic respiratory failure with hypoxia and hypercapnia J96.21; J96.22 Chronic diastolic (congestive) heart failure I50.32
== END 2024-03-19 14:00 | disposition home health service (06) | DRG 291 ==
LOC: ER 13:10 → ER IP 14:20 → CSU 16:50
PROVIDERS: Admitting Provider Student in an Organized Health Care Education/Training Program; Emergency Provider Emergency Medicine; PCP Nurse Practitioner; Visit Provider Internal Medicine
DX: I13.0 Hypertensive heart and chronic kidney disease with heart failure and stage 1 through stage 4 chronic kidney disease, or unspecified chronic kidney disease (principal); I50.33 Acute on chronic diastolic (congestive) heart failure; J96.22 Acute and chronic respiratory failure with hypercapnia; J96.21 Acute and chronic respiratory failure with hypoxia; J44.1 Chronic obstructive pulmonary disease with (acute) exacerbation; E66.2 Morbid (severe) obesity with alveolar hypoventilation; Z68.43 Body mass index [BMI] 50.0-59.9, adult; N18.30 Chronic kidney disease, stage 3 unspecified; E11.22 Type 2 diabetes mellitus with diabetic chronic kidney disease; I48.91 Unspecified atrial fibrillation; E78.5 Hyperlipidemia, unspecified; D63.1 Anemia in chronic kidney disease; F17.210 Nicotine dependence, cigarettes, uncomplicated; K21.9 Gastro-esophageal reflux disease without esophagitis; E03.9 Hypothyroidism, unspecified; F41.9 Anxiety disorder, unspecified; I25.2 Old myocardial infarction; Z79.4 Long term (current) use of insulin; Z79.01 Long term (current) use of anticoagulants; Z79.85 Long-term (current) use of injectable non-insulin antidiabetic drugs; Z79.891 Long term (current) use of opiate analgesic; Z86.16 Personal history of COVID-19; Z87.01 Personal history of pneumonia (recurrent); Z86.14 Personal history of Methicillin resistant Staphylococcus aureus infection
CPT/HCPCS: 36415; 36416; 36600; 71045; 80048; 80051; 80053; 81001; 82330; 82805; 82962; 83735; 83880; 85025; 87637; 93005; 94660; 96372; 96374; 96376; 99291; A9270; J1815; J1940

== ENCOUNTER → 2024-03-24 13:50 | Outpatient (BNVA) | payer MEDICARE, SELFPAY | PROVIDERS: PCP Nurse Practitioner; Visit Provider Nurse Practitioner | DX: E11.9 Type 2 diabetes mellitus without complications (principal); E03.9 Hypothyroidism, unspecified | CPT/HCPCS: 80053; 83036; 84443 ==

== ENCOUNTER → 2024-04-15 13:58 | Outpatient (BNVA) | payer MEDICARE, SELFPAY | PROVIDERS: PCP Nurse Practitioner; Visit Provider Nurse Practitioner Family | DX: I48.20 Chronic atrial fibrillation, unspecified (principal); E11.65 Type 2 diabetes mellitus with hyperglycemia; Z79.4 Long term (current) use of insulin; E78.2 Mixed hyperlipidemia; I13.0 Hypertensive heart and chronic kidney disease with heart failure and stage 1 through stage 4 chronic kidney disease, or unspecified chronic kidney disease; E11.22 Type 2 diabetes mellitus with diabetic chronic kidney disease; N18.30 Chronic kidney disease, stage 3 unspecified; Z87.891 Personal history of nicotine dependence; I25.10 Atherosclerotic heart disease of native coronary artery without angina pectoris; I50.32 Chronic diastolic (congestive) heart failure | CPT/HCPCS: 99213 ==

== ENCOUNTER 2024-04-23 14:49 | Outpatient (CLI) | payer MEDICARE, SELFPAY ==
--- NOTE | 2024-04-23 15:00 | USCV_ITS ---
Julius Dunlap Age: 63 Gender: M : 1960 Exam Date: 04/23/2024 15:12 Ordering Phys: Morenita Abrams NP Technologist: CT Exam Location: [facility] [place] Indication: cp BP: 153 / 86 HR: 69 Rhythm: Sinus Technical Quality: Adequate MEASUREMENTS (Male / Female) Normal Values 2D ECHO LVOT Diameter 2.1 cm LV Ejection Fraction MOD 4C 59.3 % LV Ejection Fraction MOD 2C 59.7 % LV Ejection Fraction 2C AL 59.9 % LA Diameter 6.3 cm RA Systolic Volume 4C AL 72.6 ml RA Systolic Volume 4C MOD 70.1 ml LA Sys Volume AL 95.7 cm cubed LA Sys Volume Index AL 30.3 cm cubed/m squared Aorta at Sinotubular Diameter 2.2 cm M-MODE LA Ao Ratio MM 2.2 AV Cusp Separation MM 2.2 cm DOPPLER AV Peak Velocity 130.0 cm/s LVOT Peak Velocity 100.0 cm/s AV Area Cont Eq vti 2.7 cm squared AV Area Cont Eq pk 2.6 cm squared MV Peak Velocity 143.0 cm/s MV Area PHT 3.5 cm squared Mitral E to A Ratio 23.7 TV Peak Velocity 209.5 cm/s TR Peak Velocity 244.0 cm/s TR Peak Gradient 23.8 mmHg TV Peak E Velocity 69.0 cm/s PV Peak Velocity 112.5 cm/s FINDINGS Left Ventricle Normal left ventricular size, systolic function and wall thickness, with no regional wall motion abnormalities. Left ventricular ejection fraction is estimated at 59 %. In the presence of atrial fibrillation diastolic function cannot be assessed accurately. Right Ventricle The right ventricle is normal in size and function. Right Atrium The right atrium is normal in size. Left Atrium The left atrium is normal in size. Mitral Valve Moderately thickened mitral valve. Mild mitral annular calcification. No mitral valve stenosis. Mild-moderate mitral valve regurgitation. Aortic Valve Moderate aortic valve calcification. No aortic valve stenosis. Trace aortic valve regurgitation. Tricuspid Valve Structurally normal tricuspid valve without significant stenosis or regurgitation. Pulmonary artery systolic pressure is normal. Pulmonic Valve Structurally normal pulmonic valve without significant stenosis. There is no pulmonic regurgitation. Pericardium Normal pericardium without effusion. Aorta Normal ascending aorta dimension. IVC The inferior vena cava appears normal. CONCLUSIONS Normal left ventricular size, systolic function and wall thickness, with no regional wall motion abnormalities. Left ventricular ejection fraction is estimated at 59 %. In the presence of atrial fibrillation diastolic function cannot be assessed accurately. Moderately thickened mitral valve. Mild mitral annular calcification. No mitral valve stenosis. Mild-moderate mitral valve regurgitation. Moderate aortic valve calcification. No aortic valve stenosis. Trace aortic valve regurgitation. There is no pericardial effusion. Right atrial pressure is around 5 mm of mercury. Maria R Love MD (Electronically Signed) Final Date: 24 April 2024 09:52 S
== END 2024-04-23 14:50 | disposition home or self-care (01) ==
PROVIDERS: PCP Nurse Practitioner; Visit Provider Nurse Practitioner Family
DX: I50.32 Chronic diastolic (congestive) heart failure (principal); R93.1 Abnormal findings on diagnostic imaging of heart and coronary circulation; I34.81 Nonrheumatic mitral (valve) annulus calcification; I34.0 Nonrheumatic mitral (valve) insufficiency; I70.0 Atherosclerosis of aorta
CPT/HCPCS: 93306

== ENCOUNTER → 2024-06-09 13:56 | Outpatient (BNVA) | payer MEDICARE, SELFPAY | PROVIDERS: PCP Nurse Practitioner; Visit Provider Nurse Practitioner | DX: E11.65 Type 2 diabetes mellitus with hyperglycemia (principal); Z79.4 Long term (current) use of insulin | CPT/HCPCS: 80053; 80061; 81000; 83036; 84443 ==

== ENCOUNTER → 2024-07-03 11:44 | Outpatient (BNVA) | payer MEDICARE, SELFPAY | PROVIDERS: PCP Nurse Practitioner; Visit Provider Nurse Practitioner | DX: I50.32 Chronic diastolic (congestive) heart failure (principal) | CPT/HCPCS: 80048; 83880 ==

== ENCOUNTER 2024-07-16 07:51 | Outpatient (CLI) | payer MEDICARE, SELFPAY ==
--- NOTE | 2024-07-16 08:00 | CT_ITS ---
WS: [id number] LDCT LUNG CANCER SCREENING TECHNIQUE: Noncontrast CT of the chest with coronal and sagittal reformatted images. CLINICAL INFORMATION: Z87.891 - Personal history of nicotine dependence COMPARISON: CT 05/28/2023 DLP: 375.69 mGy.cm DIvol: Mean CTDIvol: 9.50 (mGy) All CT scans at [facility] use at least one of these dose optimization techniques: automated exposure control; mA and/or kV adjustment per patient size (includes targeted exams where dose is matched to clinical indication); or iterative reconstruction. FINDINGS: Few calcified granulomas. Atelectasis in the lung bases. Subsegmental atelectasis in the RIGHT middle lobe. No new suspicious pulmonary parenchymal abnormalities. Cardiomegaly. Multinodular thyroid. Aortic calcification. Coronary calcification. Calcified mediastinal hilar and subcarinal lymph nodes. Splenic granulomas. Small esophageal hernia. Small RIGHT adrenal adenoma. Hypertrophic changes thoracic spine. Hepatomegaly. Partially evaluated ovoid mass likely originating from the LEFT adrenal gland measures approximately 4.9 x 5.[address] abdomen/pelvis studies for comparison. Recommend further evaluation with contrast-enhanced CT abdomen pelvis with adrenal protocol. This appears new since 2022 and measures larger compared to 2023 although only partially visualized. CT/CT lung screening [id number] IMPRESSION: Partially evaluated ovoid mass likely adrenal in origin and measures approximat rui 4.9 x 5.1 cm. RECOMMEND FURTHER EVALUATION WITH CONTRAST-ENHANCED CT ABDOMEN PELVIS WITH ADRE NAL PROTOCOL. LUNG-RADS: 2S-Benign Appearance or Behavior with Significant Findings FOLLOW UP: 12 Month: Continue annual screening with LDCT
== END 2024-07-16 07:52 | disposition home or self-care (01) ==
PROVIDERS: PCP Nurse Practitioner; Visit Provider Nurse Practitioner
DX: Z12.2 Encounter for screening for malignant neoplasm of respiratory organs (principal); Z87.891 Personal history of nicotine dependence; J84.10 Pulmonary fibrosis, unspecified; J98.11 Atelectasis; I51.7 Cardiomegaly; E04.2 Nontoxic multinodular goiter; I70.0 Atherosclerosis of aorta; I25.10 Atherosclerotic heart disease of native coronary artery without angina pectoris; R59.0 Localized enlarged lymph nodes; D73.89 Other diseases of spleen; K44.9 Diaphragmatic hernia without obstruction or gangrene; D35.01 Benign neoplasm of right adrenal gland; M89.38 Hypertrophy of bone, other site; R16.0 Hepatomegaly, not elsewhere classified; R93.89 Abnormal findings on diagnostic imaging of other specified body structures
CPT/HCPCS: 71271

== ENCOUNTER → 2024-07-22 14:22 | Outpatient (BNVA) | payer MEDICARE, SELFPAY | PROVIDERS: PCP Nurse Practitioner; Visit Provider Internal Medicine Cardiovascular Disease | DX: I25.10 Atherosclerotic heart disease of native coronary artery without angina pectoris (principal); I13.0 Hypertensive heart and chronic kidney disease with heart failure and stage 1 through stage 4 chronic kidney disease, or unspecified chronic kidney disease; N18.30 Chronic kidney disease, stage 3 unspecified; I50.32 Chronic diastolic (congestive) heart failure; I48.20 Chronic atrial fibrillation, unspecified; E78.2 Mixed hyperlipidemia; F17.210 Nicotine dependence, cigarettes, uncomplicated; D49.7 Neoplasm of unspecified behavior of endocrine glands and other parts of nervous system; Z79.01 Long term (current) use of anticoagulants | CPT/HCPCS: 99214 ==

== ENCOUNTER 2024-08-07 12:57 | Outpatient (CLI) | payer MEDICARE, SELFPAY ==
--- NOTE | 2024-08-07 13:04 | CT_ITS ---
WS: [id number] CT ABDOMEN AND PELVIS WITH AND WITHOUT CONTRAST HISTORY: E27.8 - Other specified disorders of adrenal gland TECHNIQUE: Unenhanced 2 mm axial imaging first performed through the abdomen. Post contrast imaging through the abdomen and pelvis. Oral contrast has been provided. Sagittal and coronal reformats are submitted. All CT scans at [facility] use at least one of these dose optimization techniques: automated exposure control; mA and/or kV adjustment per patient size (includes targeted exams where dose is matched to clinical indication); or iterative reconstruction. CONTRAST: None DLP: 3668.43 mGy.cm COMPARISON: 07/16/2024 Moderate cardiomegaly. Dependent changes at the lung bases. Benign calcified RIGHT hilar lymph nodes. Well-circumscribed mass associated with the LEFT adrenal gland measures 5.9 x 5.2 cm. Hounsfield units are slightly elevated at 32 on the noncontrast exam. This mass does not enhance on the postcontrast imaging. There is no visible enhancement or enhancement by Hounsfield unit evaluation. The mass does appear to be associated with the adrenal gland. The RIGHT adrenal gland is very slightly nodular but no mass or abnormal enhancement. Slightly nodular surface of the liver. No mass. Normal portal vein. Negative gallbladder. Splenic granulomata. Normal spleen. Mild atherosclerosis aorta. Calcifications in the superior mesenteric artery. 10 mm cyst upper pole LEFT kidney. Stomach is not distended. Diffuse moderate constipation and diverticular disease. No evidence for acute diverticulitis. Urinary bladder is not distended. No ascites or adenopathy. Increase in lumbar lordosis. Degenerative disc disease at L5-S1. CT/CT abdomen pelvis wo/w [id number] IMPRESSION: 1. Solid well-circumscribed mass LEFT adrenal gland measures 5.9 x 5.2 cm. Thi s mass does not enhance on the postcontrast imaging. Mass was not present on e study from 2021. This may be an atypical adenoma or prior adrenal hemorrhagic site. As this mass is large consider evaluation in [address] adrenal mass protocol. With no history of malignancy this is most likely benign. 2. Moderate cardiomegaly. 3. Constipation with diffuse diverticular disease in the colon. No acute diver ticulitis. 4. No ascites or adenopathy.
[2024-08-07] MEDS: iohexol 350 mg/mL 500 mL Btl (per mL) IV (13:50)
== END 2024-08-07 12:58 | disposition home or self-care (01) ==
LOC: RAD 12:59
PROVIDERS: PCP Nurse Practitioner; Visit Provider Nurse Practitioner
DX: E27.8 Other specified disorders of adrenal gland (principal); I51.7 Cardiomegaly; K59.00 Constipation, unspecified; K57.30 Diverticulosis of large intestine without perforation or abscess without bleeding; R91.8 Other nonspecific abnormal finding of lung field; R59.0 Localized enlarged lymph nodes; D73.89 Other diseases of spleen; I70.0 Atherosclerosis of aorta; K55.1 Chronic vascular disorders of intestine; N28.1 Cyst of kidney, acquired; M51.379 Other intervertebral disc degeneration, lumbosacral region without mention of lumbar back pain or lower extremity pain
CPT/HCPCS: 74178

== ENCOUNTER → 2024-09-23 10:45 | Outpatient (BNVA) | payer MEDICARE, SELFPAY | PROVIDERS: PCP Nurse Practitioner; Visit Provider Nurse Practitioner | DX: Z12.5 Encounter for screening for malignant neoplasm of prostate (principal); E11.65 Type 2 diabetes mellitus with hyperglycemia; Z79.4 Long term (current) use of insulin | CPT/HCPCS: 80053; 80061; 81000; 81003; 83036; 85025; 87077; 87086; 87184; G0103 ==

== ENCOUNTER → 2024-10-02 08:50 | Outpatient (BNVA) | payer MEDICARE, SELFPAY | PROVIDERS: PCP Nurse Practitioner; Visit Provider Nurse Practitioner | DX: N18.32 Chronic kidney disease, stage 3b (principal); E55.9 Vitamin D deficiency, unspecified | CPT/HCPCS: 80069; 82043; 82306; 82310; 83970; 85025 ==

== ENCOUNTER → 2024-12-11 08:45 | Outpatient (BNVA) | payer MEDICARE, SELFPAY | PROVIDERS: PCP Nurse Practitioner; Visit Provider Nurse Practitioner | DX: E11.65 Type 2 diabetes mellitus with hyperglycemia (principal); Z79.4 Long term (current) use of insulin | CPT/HCPCS: 80053; 80061; 83036; 84443; 85025 ==

== ENCOUNTER → 2024-12-16 11:03 | Outpatient (BNVA) | payer MEDICARE, SELFPAY | PROVIDERS: PCP Nurse Practitioner; Visit Provider Nurse Practitioner | DX: E11.65 Type 2 diabetes mellitus with hyperglycemia (principal); E03.9 Hypothyroidism, unspecified; Z79.4 Long term (current) use of insulin | CPT/HCPCS: 81000; 84439; 84481 ==

== ENCOUNTER 2025-02-03 13:37 | Outpatient (CLI) | payer MEDICARE, SELFPAY ==
--- NOTE | 2025-02-03 14:00 | CTR_ITS ---
PROCEDURE INFORMATION: Exam: CT Abdomen And Pelvis Without And With Contrast Exam date and time: 02/03/2025 1:58 PM Age: 64 years old Clinical indication: Condition or disease; Other: Other specified disorders of adrenal gland; Prior surgery; Surgery date: 6+ months; Surgery type: Left buttock; Additional info: E27.8 - other specified disorders of adrenal gland TECHNIQUE: Imaging protocol: Computed tomography of the abdomen and pelvis without and with contrast. Radiation optimization: All CT scans at this facility use at least one of these dose optimization techniques: automated exposure control; mA and/or kV adjustment per patient size (includes targeted exams where dose is matched to clinical indication); or iterative reconstruction. Contrast material: OMNI 350; Contrast volume: 100 ml; Contrast route: INTRAVENOUS (IV); COMPARISON: CT abdomen pelvis wo/w [id number] 08/07/2024 1:24 PM RADIATION DOSE METRICS: Total DLP (mGy-cm): 4548.85 FINDINGS: Lungs: A granulomatous calcification is identified in the posteromedial right lower lobe. There is mild pulmonary vascular engorgement. Heart: Cardiomegaly is present. Coronary atherosclerotic changes are also apparent. Diaphragm: There is eventration of the left hemidiaphragm. Liver: The liver shows a stable punctate granulomatous calcification in the right hepatic lobe. Gallbladder and biliary ducts: Normal. No calcified stones. No ductal dilation. Pancreas: There is mild stable pancreatic atrophy.Mild aortoiliac atherosclerotic calcifications are seen without aneurysm or dissection. There are no significant stenoses. Spleen: The spleen shows multiple punctate granulomatous calcifications, unchanged from prior study. Adrenal glands: See Vasculature finding. Kidneys and ureters: Kidneys are remarkable for a stable small mid left renal cortical cyst, measuring 11 mm in diameter. Stomach and bowel: Unremarkable. No obstruction. No mucosal thickening. Appendix: No evidence of appendicitis. Intraperitoneal space: Unremarkable. No free air. No significant fluid collection. Vasculature: Precontrast, venous, and delayed phases were generated. Again seen is a left adrenal nodule measuring approximately 57 mm in AP diameter, unchanged from the prior study. The average attenuation of the adrenal nodule measures 32 HU prior to injection of the contrast, and 33 HU and 37 HU on post-contrast and delayed sequences, respectively. This corresponds to a relative washout of -12.1% and an absolute washout of -400.0%, which are indeterminant. The right adrenal gland shows a 14 mm diameter nodule, showing no significant change in size from the prior study. The average attenuation of the adrenal nodule measures 19 HU prior to injection of the contrast, and 45 HU and 24 HU on post-contrast and delayed sequences, respectively. This corresponds to a relative washout of 46.7% and an absolute washout of 80.8%, consistent with an adenoma. No interval change is apparent. Lymph nodes: Right hilar granulomatous lymph node calcifications are present. Urinary bladder: Unremarkable as visualized. Reproductive: Unremarkable as visualized. Bones/joints: There is no acute fracture, lytic, or blastic lesion. Vacuum phenomenon and discogenic sclerosis at L5-S1 is present. Soft tissues: Unremarkable. CT/CT abdomen pelvis wo/w [id number] IMPRESSION: 1. Indeterminate 57 mm left adrenal nodule, unchanged from prior study of 08/07/2024. 2. Stable 14 mm right adrenal nodule, consistent with an adenoma. 3. Granulomatous changes in the right lung, right hilum, liver, and spleen. 4. Pulmonary vascular congestion and cardiomegaly consistent with mild congestive heart failure. COMMENTS: Consistent with the [employer]'s Incidental Findings Committee white paper (J Am Diana Radiol 2017): For any incidental adrenal lesion greater than or equal to 1 cm but less than or equal to 4 cm classified in this report as benign, likely benign, or containing fat (including classification as an adenoma or myelolipoma), no follow-up imaging is recommended per consensus recommendations based on imaging criteria. Further lab evaluation could be pursued if warranted based on clinical findings.
[2025-02-03] MEDS: iohexol 350 mg/mL 500 mL Btl (per mL) IV (14:17)
[2025-02-03 14:54] LABS: Blood Urea Nitrogen 16 mg/dL (8-23)
== END 2025-02-03 13:38 | disposition home or self-care (01) ==
LOC: RAD 13:38
PROVIDERS: PCP Nurse Practitioner; Visit Provider Nurse Practitioner
DX: E27.8 Other specified disorders of adrenal gland (principal); J84.10 Pulmonary fibrosis, unspecified; R91.8 Other nonspecific abnormal finding of lung field; I51.7 Cardiomegaly; R93.1 Abnormal findings on diagnostic imaging of heart and coronary circulation; R93.89 Abnormal findings on diagnostic imaging of other specified body structures; K76.89 Other specified diseases of liver; K86.89 Other specified diseases of pancreas; I70.8 Atherosclerosis of other arteries; D73.89 Other diseases of spleen; N28.1 Cyst of kidney, acquired
CPT/HCPCS: 74178; 82565; 84520

== ENCOUNTER → 2025-02-09 11:37 | Outpatient (BNVA) | payer MEDICARE, SELFPAY | PROVIDERS: PCP Nurse Practitioner; Visit Provider Nurse Practitioner | DX: E11.65 Type 2 diabetes mellitus with hyperglycemia (principal); E03.9 Hypothyroidism, unspecified; Z79.4 Long term (current) use of insulin | CPT/HCPCS: 80053; 81000; 83036; 84439; 84443; 84481 ==